=== PATIENT | male | born 1945 | race Caucasian/White ===

== ENCOUNTER 2022-07-14 09:25 | Emergency (ER) | payer MEDICARE, OTHER, SELFPAY ==
[2022-07-14 09:44] VITALS: BP 119/77; PULSE 73; RESP 12; TEMP 36.1; O2SAT 97; BMI 27.8
--- NOTE | 2022-07-14 09:52 | CRLHL7_ITS ---
For Patients: As a result of the Century Cures Act, medical imaging exams and procedure reports are released immediately into your electronic medical record. You may view this report before your referring provider. If you have questions, please contact your health care provider. INDICATION: Cough. TECHNIQUE: Portable AP chest radiograph. COMPARISON: 04/29/2021. FINDINGS: Mildly reduced lung volumes. No focal pulmonary opacity, pneumothorax, or pleural effusion. Normal cardiac size. Similar mild thoracic aortic tortuosity. IMPRESSION: Low volume study without acute cardiopulmonary findings. Dictated by Bran Lal MD @ 07/14/2022 10:07:48 AM Dictated by: Bran Lal MD @ 07/14/2022 10:07:51 (Electronically Signed)
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
[2022-07-14 10:33] LABS: PCR FLU A Negative PCR FLU A (Negative); PCR FLU B Negative PCR FLU B (Negative); PCR RSV Negative PCR RSV (Negative)
[2022-07-14 10:43] LABS: SARS PCR* POSITIVE SARS-CoV-2 (Negative)
[2022-07-14 11:00] VITALS: BP 119/77; PULSE 73; RESP 12; TEMP 36.1
== END 2022-07-14 11:00 | disposition home or self-care (01) ==
PROVIDERS: Emergency Provider Family Medicine; PCP Surgery
DX: U07.1 COVID-19 (principal)
CPT/HCPCS: 71045; 87502; 87634; 87635; 99284

== ENCOUNTER 2022-10-12 12:31 | Emergency (ER) | payer MEDICARE, OTHER, SELFPAY ==
[2022-10-12 12:36] VITALS: BP 143/90; PULSE 69; RESP 16; TEMP 36.2; O2SAT 98; BMI 28.3
--- NOTE | 2022-10-12 12:58 | CRLHL7_ITS ---
For Patients: As a result of the Century Cures Act, medical imaging exams and procedure reports are released immediately into your electronic medical record. You may view this report before your referring provider. If you have questions, please contact your health care provider. Indication: Bloating, abdominal pain, suspected bowel obstruction or diverticulitis Technique: CT abdomen and pelvis with IV contrast Please note that all CT scans at this facility use dose modulation, iterative reconstruction, and/or weight-based dosing when appropriate to reduce radiation dose to as low as reasonably achievable. Comparison: July 29, 2014 Findings: Small hiatal hernia. Inferior thorax otherwise unremarkable. Normal liver size and contour. No suspicious hepatic lesions. Hepatic and portal veins appear patent. Normal gallbladder. No biliary dilatation. The adrenal glands, kidneys, spleen, pancreas, stomach and duodenum are unremarkable. Normal course and caliber of the abdominal aorta and the IVC. The aortic side branches and the renal veins appear patent. Mild atherosclerotic disease of the abdominal aorta. No lymphadenopathy. Bladder unremarkable. Prostate may be absent. There is a penile prosthesis in place with somewhat irregularly appearing reservoir. Diverticulosis without acute diverticulitis. No bowel obstruction. No bowel wall thickening. No significant free fluid. No acute osseous abnormality. Bilateral L5 pars defects. Impression: No evidence of bowel obstruction or diverticulitis. No etiology identified for patient`s bloating. Please note that all CT scans at this facility use dose modulation, iterative reconstruction, and/or weight-based dosing when appropriate to reduce radiation dose to as low as reasonably achievable. Dictated by Zaheer London MD @ 10/12/2022 2:13:43 PM (Electronically Signed)
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
[2022-10-12 13:19] LABS: Lactate* 0.7 mmol/L (0.5-1.9)
[2022-10-12 13:22] LABS: Appearance Urine Clear (Clear); Bilirubin Urine Negative (Negative); Blood Urine Trace-intact (Negative); Color Urine Yellow (Yellow); Glucose Urine Negative (Negative); Ketones Urine Negative (Negative); Leukocyte Esterase Urine Negative (Negative); Nitrite Urine Negative (Negative); Protein Urine Negative (Negative); Specific Gravity Urine 1.025 (1.000-1.030); Urobilinogen Urine 0.2 (0.2-1.0)
--- OUTSIDE RECORDS SUMMARY | 2022-10-12 13:25 | XMS_ITS | Continuity of Care Document ---
Author Name Unknown Organization [facility] Address [address] [address] [place] [address] Phone Care Team Providers Care Field Underwriter Name Role Phone Mayra Ross MD Unavailable Unavailable Allergies, Adverse Reactions, Alerts Substance Reaction Status Criticality No Known Allergies Active No Inform ation Medications Medication Instructions Dosage Effective Dates (start - stop) Status Comments ferrous sulfate 325 mg (65 mg iron) tablet,delayed release take 1 tablet by oral route every day 325 MG - Active sotalol 80 mg tablet take 1 tablet by oral route 2 times every day 80 MG - Active Xyosted 75 mg/0.5 mL subcutaneous auto-injector inject (75MG) by subcutaneous route every week in the abdomen 75 MG - Active CELECOXIB (unknown strength) take 1 capsule by oral route every day Not Available - Active Eliquis 5 mg tablet take 2 tablet by oral route every day 10 MG - Active omeprazole 20 mg tablet,delayed release take 1 by Oral route every day 1 - Active amlodipine 5 mg tablet take 1 tablet by oral route every day 5 MG - Active Lunesta 3 mg tablet take 1 Tablet by oral route every day at bedtime 3 MG - Active EXCEDRIN TENSION HEADACHE (unknown strength) Take as directed Not Available - Active Procedures Procedure Date Small Bowel PillCam Capsule 1st Day Offic/outpt E&m New Mod-hi Advance Directives Directive Yes / No Effective Date File Name No Information Encounters Encounter Description Practice Location Reason(s) For Visit Diagnoses Date Provider Providers Copied on Encounter [facility], [address] [address], [place], [id number], [place] tel:[phone] [facility] No Information 1 Vandana Nunez. [address] [facility], [facility] [address], [place], [place], [id number] , [place]. tel: [phone] [facility], [address] [address], [place], [id number], [place] tel:[phone] [facility] Anemia, unspecified 1 Dena Valera. [address] [facility], [facility] [address], [place], [place], [id number] , [place]. tel: [phone] Referring Provider: Adrien Baig, [address] [place] [address], [address]. tel:[phone] [facility], [address] [address], [place], [id number], [place] tel:[phone] [facility] Anemia, unspecified type 1 Vandana Nunez. [address] [facility], [facility] [address], [place], [place], [id number] , [place]. tel: [phone] Referring Provider: Referral Self. Offic/outpt E&m [facility], [address] [address], [place], [id number], [place] tel:[phone] [facility] Comment (chief complaint) MelenaAnemia, unspecified typeHistory of migraine headachesHistory of atrial fibrillation 1 Vandana Nunez. [address] [place] [address], [facility] [address], [place], [place], [address] , [place]. tel: [phone] Referring Provider: Referral Self. [facility], [address] [address], [place], [place], [address], [place] tel:[phone] [facility] No Information 1 Leslee Silva. [address] [facility], [place], [place], [id number] , [place]. tel:[phone] Family History Family Member Type Diagnosis Age At Onset No Information Immunizations Vaccine Date Status Comments SARS-COV-2 (COVID-19) vaccin e, mRNA, spike protein, LNP, preservative free, 30 mcg/0.3mL dose administered Note: [facility] bi-direct ional interface ; Source: Other Registry SARS-COV-2 (COVID-19) vaccin e, mRNA, spike protein, LNP, preservative free, 30 mcg/0.3mL dose administered Note: [facility] bi-direct ional interface ; Source: Other Registry influenza, seasonal vaccine, quadrivalent, adjuvanted, .5mL dose, preservative free administered Note: [facility] bi-di rectional interface ; Source: Other Registry tetanus toxoid, reduced diphtheria toxoid, and acellular pertussis vaccine, adsorbed administered Note: [facility] b i-directional interface ; Source: Other Registry zoster vaccine recombinant administered N ote: [facility] bi-directional interface ; Source: Other Registry zoster vaccine recombinant administered N ote: [facility] bi-directional interface ; Source: Other Registry Seasonal trivalent influenza vaccine, adjuvanted, preservative free administered Note: [facility] bi-direct ional interface ; Source: Other Registry Seasonal trivalent influenza vaccine, adjuvanted, preservative free administered Note: [facility] bi-direct ional interface ; Source: Other Registry typhoid Vi capsular polysaccharide vaccine administered Note: [facility] bi-dir ectional interface ; Source: Other Registry Havrix administered Note: [facility] bi-d irectional interface ; Source: Other Registry Seasonal trivalent influenza vaccine, adjuvanted, preservative free administered Note: [facility] bi-direct ional interface ; Source: Other Registry influenza, high dose seasona l, preservative-free administered Note: [facility] bi-direct ional interface ; Source: Other Registry Prevnar 13 administered Note: [facility] bi-d irectional interface ; Source: Other Registry influenza, high dose seasona l, preservative-free administered Note: [facility] bi-direct ional interface ; Source: Other Registry tetanus toxoid, reduced diphtheria toxoid, and acellular pertussis vaccine, adsorbed administered Note: [facility] b i-directional interface ; Source: Other Registry Pneumovax 23 administered Note: [facility] bi-d irectional interface ; Source: Other Registry Twinrix administered Note: [facility] bi-d irectional interface ; Source: Other Registry yellow fever vaccine administered Note: [facility] bi-directional interface ; Source: Other Registry Influenza, seasonal, injectable administe red Note: [facility] bi- directional interface ; Source: Other Registry Influenza, seasonal, injectable administe red Note: [facility] bi- directional interface ; Source: Other Registry zoster vaccine, live administered Note: M [facility] bi-directional interface ; Source: Other Registry Influenza, seasonal, injectable administe red Note: [facility] bi- directional interface ; Source: Other Registry Influenza, seasonal, injectable administe red Note: [facility] bi- directional interface ; Source: Other Registry tetanus toxoid, reduced diphtheria toxoid, and acellular pertussis vaccine, adsorbed administered Note: [facility] b i-directional interface ; Source: Other Registry Influenza, seasonal, injectable administe red Note: [facility] bi- directional interface ; Source: Other Registry Influenza, seasonal, injectable administe red Note: [facility] bi- directional interface ; Source: Other Registry Payers Payer name Insurance type Covered democrat ID Authoriza tion(s) [employer] 16 [id number] Social History Type Description Quantity Date Captured Comments Alcohol Use Details Unknown Caffeine Use Details Unknown Tobacco Use Status No Information Smoking Status No Information Sex Male Chief Complaint And Reason For Visit No Information Reason For Referral Reason For Referral No Information Plan Of Treatment Date Type Action Status No Information History Of Present Illness Encounter Date Complaint History Of Sue chambers Illness Comment This was a telev isit with the patient. He consented to have this visit over the phone. The people present were the patient and myself. A total of 28 minutes was spent in medical discussion of which 5 minutes was used reviewing some limited outside records and coordinating his care.Mr. Rubin is a pleasant 75-year-old gentleman with a past medical history significant for arthritis, atrial fibrillation, prostate cancer, hypertension, and migraine headaches, who is here today for evaluation of an episode of melena and a drop in hemoglobin.The patient reports that about 3 to 4 weeks ago, he had 5 days of black stools and his primary care doctor had him stopped the Eliquis. He restarted the Eliquis about 3 weeks ago and has not had any recurrent black stools. He was taking Celebrex for his arthritis and he stopped taking that about 2 weeks ago. However, he does take Excedrin that has aspirin in it daily for his migraine headaches. He reports he had an upper endoscopy with Functional Status Date Functional Assessmen t No Information Instructions Date Instruction Additional Infor mation No Information Assessments Type Assessment Date No Information Patient Care Teams Name Effective Dates (start - stop) Status Members No Information
--- OUTSIDE RECORDS SUMMARY | 2022-10-12 13:25 | XMS_ITS | Continuity of Care Document ---
Author Name Unknown Organization [facility] Address [address] [place] [address] [place] [address] Phone Care Team Providers Care Filling Hauler Name Role Phone Will Bran MONGE Unavailable [...] Diagnoses Date Provider Providers Copied on Encounter [facility], [address] [place], [id number] , [place] tel: [phone] [facility] [place] No Information 2 Dany Sotomayor. [address] [facility] [place], [id number] , [place]. tel: [phone] OFFICE/OUTPATI ENT VISIT, EST [facility], [address] [place] [address] [place], [id number] , [place] tel: [phone] [facility] headache (chief complaint) Headache 7 8 Winston Case. [facility], [place], [place], [id number] , [place]. tel: [phone] Referring Provider: Cm Mirza [facility] [address] [place] [address], [address]. tel:[phone] OFFICE CONSULTATION [facility], [address] [place] [address] [place], [place], [id number] , [place] tel: [phone] [facility] headache (chief complaint) HeadacheOther fci (current) drug therapy [phone] Schneider Tao. [address] [place] [address] [place], [id number] , [place]. tel: [phone] Referring Provider: Cm Mirza [facility] [address] [place] [address], [address]. tel:[phone] [facility], [address] [place] [address] [place], [place], [id number] , [place] tel: [phone] [facility] headache (chief complaint) No Information [phone] Schneider Tao. [address] [place] [address] [place], [place], [address] , [place]. 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 Reports he has been taking the [...] or neurologic symptoms.Tested for sleep apnea at [facility]-- no significant findings. Dr. Mirza suggested Mr. Rubin come here to explore injections and medical cannabis. States he currently takes excedrin for acute pain relief.Mr. Rubin would like [facility] to assume managment of pain [...] or neurologic symptoms.Tested for sleep apnea at [facility]-- no significant findings. Underwent PT at -- not helpful. Tried injections at -- not helpful. Reports previous . Has taken for addtional pain relief. MrRavi is interested in and would like [facility] to assume managment of pain care. Functional Status Date Functional Assessmen t No Information Instructions Date Instruction Additional Infor mation No Information Assessments Type Assessment Date No Information Patient Care Teams Name Effective Dates (start - stop) Status Members No Information
[2022-10-12 13:26] LABS: Basophils Absolute Auto 0.02 K/uL (0.00-0.30); Basophils Percent Auto 0.3 % (0.0-3.0); Eosinophils Absolute Auto 0.21 K/uL (0.00-0.50); Eosinophils Percent Auto 3.1 % (0.0-7.0); Hematocrit 48.3 % (37.0-53.0); Hemoglobin* 15.9 gm/dL (13.5-17.5); Immature Granulocytes Abs Auto 0.02 K/uL (0.00-0.30); Immature Granulocytes Pct Auto 0.3 %; Mean Corpuscular HGB Conc 33 gm/dL (32-36); Mean Corpuscular Hemoglobin 31 pg (26-34); Mean Corpuscular Volume 93 fL (80-100); Monocytes Percent Auto 11.2 % (0.0-11.0); Neutrophils Percent Auto 73.1 % (42.0-72.0); Platelet Count* 215 K/uL (140-440); RDW Coefficient of Variation % 13.1 % (11.5-15.5); Red Blood Count 5.21 m/uL (4.30-5.90); White Blood Count* 6.86 K/uL (4.50-11.00)
[2022-10-12 13:32] LABS: RBC Urine 0-2 (0-2); WBC Urine 0-2 (0-5)
[2022-10-12 13:33] LABS: Slide Review Reflex No
[2022-10-12 13:43] LABS: Albumin* 4.3 g/dL (3.3-5.0); Chloride* 104 mmol/L (96-114); Sodium* 138 mmol/L (135-149)
[2022-10-12 13:44] LABS: Potassium* 4.1 mmol/L (3.6-5.1)
[2022-10-12 13:46] LABS: Bilirubin Total* 0.6 mg/dL (0.1-1.5); Est. Creatinine Clearance* 70.06; Estimated Glomerular Filt Rate 78 ml/min
[2022-10-12 13:47] LABS: Alanine Aminotransferase* 24 U/L (4-50); Alkaline Phosphatase* 89 U/L (40-150); Aspartate Amino Transferase* 28 U/L (12-35); Blood Urea Nitrogen* 18 mg/dL (7-30); Calcium* 9.2 mg/dL (8.4-10.6); Carbon Dioxide* 28 mmol/L (20-32); Glucose* 103 mg/dL (60-115); Lipase* 138 U/L (23-300); Total Protein* 7.7 g/dL (6.0-8.3)
[2022-10-12 13:50] LABS: C Reactive Protein* 0.9 mg/dL (0.5-1.0)
[2022-10-12 14:45] VITALS: BP 129/89; PULSE 66; RESP 16; O2SAT 97
== END 2022-10-12 14:46 | disposition home or self-care (01) ==
PROVIDERS: Emergency Provider Family Medicine; PCP Surgery
DX: R10.9 Unspecified abdominal pain (principal)
CPT/HCPCS: 36415; 74177; 80053; 81003; 81015; 83605; 83690; 85025; 86140; 99283; 99284; 99285; Q9967

== ENCOUNTER 2023-02-07 08:12 | Outpatient (RCR) | payer MEDICARE, OTHER, SELFPAY ==
--- NOTE | 2023-02-07 16:37 | PT.OPEX ---
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 PATIENT STATES, IT 'S REALLY BEEN HURTING RIGHT HERE (MEDIAL KNEE) SINCE I HAD THE SURGERY FOR MY RIGHT ANKLE. 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 [employer] Preferred Name SHANICE Objective Other/Pertinent Objective GAIT/FUNCTIONAL MOBILITY Single leg stance: 16SEC LLE Squat: PAINFUL MEDIAL KNEE KNEE ROM Flexion: 132 Extension: 0 HIP ROM Flexion: WNL Extension: WNL Internal Rotation: WFL External Rotation: WFL Abduction: WNL LLE MMT: Hip flexion: 4+/5 R/L Hip abduction: 4+/5 Hip extension: 4+/5 Knee flexion: 4+/5 Knee extension: 4/5 SPECIAL TEST Anterior drawer: (-) Stephanie test: (-) Posterior Drawer: (-) Valgus Test: (-) Varus Test: (-) Joint line tenderness: MEDIAL JOINT LINE/MEDIAL PATELLA Marina test: (-) hyper flexion test:(+) Thessaly test: (-) Vinson Compression: (+) GRETTA test: (+) FADIR test: (+) Scour test: (-) Assessment Assessment/Impression PATIENT IS A [address] PAVON TO EVAL AND TREAT LEFT KNEE PATELLOFEMORAL OSTEOARTHRITIS; PMHX INCLUDES BUT NOT LIMITED TO RECENT TIBIOTALAR CALCANEAL FUSION ( ANKLE REPLACEMENT) (11/11/22), RIGHT BICEPS REPAIR (15 YRS), ELBOW SX (2003, 2017), AFIB RECENT WATCHMAN DEVICE (09/2022 ), LEFT SHOULDER SCOPE (2002), GERD, DIVERTICULITIS, REMOTE H/O OF CA (2014), ASYMMETRIC PUPILS D/T GOLF BALL TRAUMA ( 2019), MULTIJOINT OA. PATIENT LIVES W/HIS IN A MULTISTORY HOME W/15 STEPS TO ENTER W/RAILING. UPON EVALUATION, HE DEMONSTRATES MEDIAL JOINT PAIN/PATELLA BORDER PAIN CONSISTENT WITH OSTEOARTHRITIS AND PATELLOFEMORAL SYNDROME AND A POSITIVE VINSON'S TEST. HE DEMONSTRATES DECREASED ABILITY TO ENGAGE VMO DURING LEG RAISES AND KNEE EXT THAT HE HAS BEEN DOING WITH HIS RIGHT ANKLE REHABILITATION. A GREAT DEAL OF TIME AND PRACTICE TO KEEP VMO ENGAGED DURING A SINGLE STRAIGHT LEG WITH NOTABLE EFFORT AND CONCENTRATION. UPON FURTHER DISCUSSION, HE HAS BEEN PERFORMING HIS EXERCISES ONCE DAILY BUT DOUBLING THEM WITH POOR EFFICIENCY AND EFFICACY. WE DISCUSSED THE PATELLOFEMORAL SYNDROME IN DEPTH AND THE IMPORTANCE OF THE VMO FOR TRACKING AND LATERAL HIP. TODAY, HE COMPLETED 8 REPS FOR SLR AND UNABLE TO PERFORM MORE D/T FATIGUE. I HAD HIM ADD AN ADDUCTION SQUEEZE TO BRIDGE, KNEE EXT, AND MINISQUATS NOTING MODERATE PAIN WITH SIT TO STANDS. WE WILL INCORPORATE HIS LEFT KNEE DX FOR STRENGTH , GT, AND CORE STABILITY ALONG WITH FLEXIBILITY. HE IS APPROPRIATE FOR SKILLED PHYSICAL THERAPY TO RETURN HIM TO HIS PLOF BEFORE RIGHT ANKLE SURGERY. PATIENT VERBALIZED UNDERSTANDING BUT WILL NEED ONGOING INSTRUCTION FOR EFFICACY. Primary Functional Limitations STAIRS SQUATTING STOOPING PROLONGED SITTING Plan of Care Rehabilitation Potential Good Physical Therapy Goals IN 4-6 VISITS: 1. PATIENT WILL REPORT PAIN IN LEFT KNEE </3/10 AND AT WORST 2. PATIENT WILL DEMONSTRATE INDEPENDENT HEP AND THE ABILITY TO PROGRESS 3. PATIENT WILL IMPROVE STRENGTH TO PARTICIPATE IN COMMUNITY AND WORK RELATED ACTIVITIES Coordination/Communication With Referral Source Treatment Plan/Direct Interventions Gait Training,Heat,Ice/Cold/ Vasopneumatic,Joint Mobilization,Manual Therapy, Neuromuscular Re-ed,Self-Care/ Home Management,Therapeutic Activities,Therapeutic Exercises Frequency/Duration 1W6 Patient Will Be Discharged From Therapy Completion of LTG(s), Independently Progressing Discharge Plan Comments DC TO SELF WHEN GOALS MET OR MAX POTENTIAL ACHIEVED Evaluation Billing Untimed Code Treatment Minutes 15 PT Eval No Charge No Complexity Moderate Certification Information Physician Comment/Change : Physician NPI Number #
== END 2023-04-14 09:07 | disposition home or self-care (01) ==
PROVIDERS: PCP Surgery; Visit Provider Orthopaedic Surgery Sports Medicine
DX: M17.12 Unilateral primary osteoarthritis, left knee (principal); Z51.89 Encounter for other specified aftercare
CPT/HCPCS: 97110; 97162

== ENCOUNTER 2023-07-17 09:45 | Outpatient (RCR) | payer MEDICARE, OTHER, SELFPAY | END 2023-07-24 11:35 | disposition home or self-care (01) | PROVIDERS: PCP Surgery; Referring Provider Physician Assistant; Visit Provider Orthopaedic Surgery Foot and Ankle Surgery | DX: S76.112A Strain of left quadriceps muscle, fascia and tendon, initial encounter (principal); M17.12 Unilateral primary osteoarthritis, left knee; Z47.2 Encounter for removal of internal fixation device; R26.2 Difficulty in walking, not elsewhere classified; Z51.89 Encounter for other specified aftercare | CPT/HCPCS: 97012; 97035; 97110; 97116; 97140; 97162 ==

== ENCOUNTER 2023-07-21 10:02 | Day surgery (SDC) | payer MEDICARE, OTHER, SELFPAY ==
[2023-07-21] VITALS (22 sets, daily range): BP systolic 92–159; BP diastolic 63–104; PULSE 55–85; RESP 12–18; TEMP 35.4–36.8; O2SAT 93–99; BMI 28.4
[2023-07-21] MEDS: LACTATED RINGERS 1000 ML 1,000 ML 100 ML IV (10:20)
[2023-07-21] MEDS: OXYCODONE (CR) 10 MG TAB.ER.12H PO (10:20)
[2023-07-21] MEDS: SODIUM CHLORIDE 0.9 % (FLUSH) 10 ML SYRINGE IVF (10:30)
--- OUTSIDE RECORDS SUMMARY | 2023-07-21 10:33 | XMS_ITS | Encounter Summary ---
Author Name Unknown Organization [facility] Address [address] [address] Phone Care Team Providers Care Fish Liver Sorter Name Role Phone Unavailable Primary Care Provider Unavailabl e Reason for Referral * Diagnostic (Urgent) - Authorized Specialty Diagnoses / Procedures Referred By Clarisa joshua Referred To Contact Radiology Diagnoses Left knee injury, initial encounter Procedures MR KNEE LEFT WO CONTRAST Kermit Peralta APRN, CNP [address] [place] [address] Referral ID Status Reason Start Date Expiration Date V isits Requested Visits Authorized [id number] Authorized 04/02/2023 07/02/2024 1 1 * Ancillary Services (Routine) - Closed Specialty Diagnoses / Procedures Referred By Clarisa joshua Referred To Contact Radiology Diagnoses Left knee injury, initial encounter Procedures XR KNEE LT 4 OR MORE VIEWS Kermit Peralta APRN, CNP [address] [place] [address] Referral ID Status Reason Start Date Expiration Date Visits Re quested Visits Authorized [id number] Closed 04/02/2023 07/02/2024 1 1 Reason for Visit * Reason Comments Consult Left thigh Encounter Details Date Type Department Care Team (Late st Contact Info) Description 04/02/2023 2:00 PM CDT Office Visit [facility] [address] [place] [phone] Kermit Peralta APRN, SCENERY BUILDER [address] [place] [phone] Left knee injury, initial encounter (Primary Dx); Primary localized osteoarthritis of left knee Social History Tobacco Use Types Packs/Day Years Used Date Smoking Tobacco: Never Assessed Sex and Gender Information Value Date Recorded Sex Assigned at Not on file Gender Identity Not on file Sexual Orientation Not on file Job Start Date Occupation Industry Not on file Not on file Not on file documented as of this encounter Last Filed Vital Signs Vital Sign Reading Time Taken Comments Blood Pressure - - Pulse - - Temperature - - Respiratory Rate - - Oxygen Saturation - - Inhaled Oxygen Concentration - - Weight 91.2 kg (201 lb 1 oz) 04/02/2023 2:27 PM CDT Height 182.9 cm (6') 04/02/2023 2:27 PM CDT Body Mass Index 27.27 04/02/2023 2:27 PM CDT documented in this encounter Progress Notes * Jacqueline Coats - 04/02/2023 2:00 PM CDT [facility] Kermit Peralta APRN, SCENERY BUILDER Patient: Chente Rubin : 1945 Appointment Date: 04/02/2023 CHIEF COMPLAINT Chief Complaint Patient presents with ??? Consult Left thigh Summary of Lower Extremity Problems and Interventions Job: Unknown Medical issues that may impact care Diabetes: Negative Insulin: Negative Anticoagulation: Negative Pacemaker or defibrillator: NegativeTobacco: Unknown Diagnosis: 04/02/2023: Primary osteoarthritis left knee Injections: None Surgery Performed: None Tests: 04/02/2023: I personally reviewed imaging of the left knee done today in- clinic which revealed severe degenerative changes to the patellofemoral joint with subchondral sclerosis and periarticular osteophytes. HISTORY OF PRESENT ILLNESS Chente is a very pleasant 77 year old male who presents to our walk-in clinic today with concerns of left knee pain. He did sustain an injury to the knee on 04/02/2023 when he fell in his garage while hew as sitting down on a box. He had shooting pian in his thigh when this happened. He did not fall on his knee and is unsure of the mechanism of exactly how this occurred. He says that he has had previous problems with his knees. He is mostly having pain at this time over the anterior thigh and is having pain with weight-bearing. He denies any catching or locking and has not had numbness or tingling. He does state that he has ankle prostheses bilaterally. He is here today with his for evaluation of his knee/thigh injury and to discuss treatment planning. MEDICAL HISTORY Allergies Allergen Reactions ??? Atorvastatin Muscle pain and Unknown Muscle pains with atorvastatin ??? Lisinopril Cough ??? Rosuvastatin Nausea Only Statin intolerance. No past medical history on file. Current Outpatient Medications Medication Sig ??? aspirin EC 81 MG tablet Take 81 mg by mouth one time a day. ??? celecoxib (CeleBREX) 100 MG capsule ??? omeprazole (PriLOSEC) 20 MG delayed-release capsule TAKE 1 CAPSULE BY MOUTH EVERY DAY BEFORE A MEAL ??? sotalol (Betapace) 80 MG tablet Take 40 mg by mouth every 12 hours. ??? amLODIPine (Norvasc) 5 MG tablet ??? sotalol (Betapace) 80 MG tablet ??? evolocumab (Repatha) 140 MG/ML prefilled syringe injection Inject 140 mg under the skin. ??? eszopiclone (Lunesta) 1 MG tablet Take 1 mg by mouth at bedtime. ??? polyethyl glycol-propyl glycol (Systane) 0.4-0.3 % ophthalmic gel Apply 1 Drop to eye two timesa day. ??? augmented betamethasone dipropionate (Diprolene) 0.05 % ointment ??? augmented betamethasone dipropionate (Diprolene) 0.05 % ointment ??? clindamycin (Clindagel) 1 % gel APPLY TOPICALLY TO THE AFFECTED AREA TWICE DAILY FOR 7 DAYS No current facility-administered medications for this visit. No past surgical history on file. No family history on file. REVIEW OF SYSTEMS Constitutional: no weight loss, fever, night sweats Skin: no rashes, pigmentation changes, or lesions of concern Resp: no cough or shortness of breath CV: no chest pains or palpitations Musculoskeletal: POSITIVE - please see above HPI for details PHYSICAL EXAMINATION Vitals: 04/02/23 1427 Weight: 201 lb 1 oz (91.2 kg) Height: 6' (1.829 m) Body mass index is 27.27 kg/m??. PAIN SCORE: Seven CONSTITUTIONAL: Well developed and well nourished male in no acute distress. Alert and orientated x4, nonfocal. LOWER EXTREMITY: Left lower extremity HIP: LIMB LENGTHS: Equal RANGE OF MOTION: Full with no pain TENDERNESS: Negative in the groin, buttock, or over the hip bursa STRAIGHT LEG RAISE: Negative KNEE: EFFUSION: None INSPECTION/PALPATION: There is a fullness noted over the distal thigh compared to the right side. There is a mass in the proximal anterior thigh that is approximately baseball sized. There does appear to be some divot at the quad insertion on the left compared to the right. No significant palpable defect. SKIN: No redness. No rashes. No ecchymosis. TENDERNESS: Medial: Mildly positive Lateral: Negative Patellofemoral: Negative Distal rectus femoris tender, VMO tender, mild vasis lateralis. No significant tenderness at the proximal pole of the patella. RANGE OF MOTION: Extension: 0 degrees Flexion: 100 degrees STABILITY: No varus or valgus instability. No AP instability. PROVOCATIVE TESTING: Stephanie's: Negative Resisted Straight Leg Raise: 5/5 Quadriceps:4/5 on the left 5/5 on the right Hamstrings: 5/5 bilaterally. Steinmann's: Negative MOTORS AND SENSATION: Intact distally. PULSES: 2+ dorsalis pedis and posterior tibial pulses. ALIGNMENT: Valgus IMAGING I personally reviewed imaging of the left knee done today in-clinic which revealed moderate to severe degenerative changes to the patellofemoral joint with subchondral sclerosis and periarticular osteophytes. There are mild arthritic changes seen of the medial and lateral compartments. Chondrocalcinosis seen laterally. There is no significant patella baja. No acute fractures or other osseous abnormalities seen. IMPRESSIONS 1. Left knee injury, initial encounter 2. Primary osteoarthritis left knee PLAN I discussed with the patient that his x-rays today did show degenerative changes to the patellofemoral joint but no acute carol abnormalities. He does have weakness with quadriceps testing on physical exam so while I do not think he has a complete quad rupture, I do think he may have a partial quadriceps tear. I am going to order a STAT MRI to be done of the left knee. The patient did state that he needs to get an open-sided MRI scan because he is claustrophobic. I am ordering this today, and once the results are avialble to me I will give him a call to discuss the results and we will make our plan from there. The patient was agreeable with this plan and all of their questions were answered. I, Jacqueline Coats, am serving as a scribe to document services professionally performed by Kermit Peralta APRN, CNP for this visit based on the provider's statements to me on the date of this clinic visit. documented in this encounter Miscellaneous Notes * Clinical Note - Ramiro Rai CMA - 04/02/2023 2:00 PM CDT Patient was fit with and dispensed: knee immobilizer. Patient was provided clear written and oral instruction related to use, maintenance, safety and potential hazards; verbalizes understanding and satisfaction with fit, comfort and function and is Independent with fitting and adjustment. Patient was given contact information if problems occur with product. Patient signed for receipt of product. Patient demonstrates good understanding of application and use of product. Patient voiced good understanding of all instructions given today and will follow up with their Physician/APC if they have questions or concerns. documented in this encounter Plan of Treatment Upcoming Encounters Date Type Department Care Team (Latest Contact Info) Description 09/29/2023 2:15 PM CDT Hospital Encounter [facility] PREOP/PHASE II [address] [place] [phone] Sami Savage MD [address] [place] [phone] 09/29/2023 2:15 PM CDT - 09/29/2023 4:45 PM CDT Surgery [facility] [address] [place] [address] Sami Savage MD [address] [place] [phone] Left total knee arthroplasty Scheduled Orders Name Type Priority Associated Diagnoses Orde r Schedule MR KNEE LEFT WO CONTRAST Imaging STAT Left knee injury, initial encounter Expected: 04/02/2023 (Approximate), Expires: 04/02/2024 Scheduled Procedures Name Priority Associated Diagnoses Date/Ti me ARTHROPLASTY TOTAL KNEE Left knee degenerative joint disease M17.12 09/29/2023 2:15 PM CDT documented as of this encounter Results * XR KNEE LT 4 OR MORE VIEWS (04/02/2023 3:04 PM CDT) Anatomical Region Laterality Modality Knee Radiographic Donna ging 04/02/2023 3:04 PM CDT Narrative 04/03/2023 7:29 AM CDT This document is currently in Final Status Exam FOUR-VIEW LEFT KNEE SERIES 04/02/2023 1505 INDICATION: Injury. FINDINGS: No bony injuries or effusions are evident. There is mild degenerative change in the knee. IMPRESSION: Mild chronic change. No acute abnormality seen. Dictated By: Gokul Sebastian MD 04/02/2023 3:30 PM Edited By: KIMBERLY 04/02/2023 4:23 PM Electronically Signed: Gokul Sebastian MD 04/03/2023 7:29 AM Procedure Note Gokul Sebastian MD - 04/03/2023 This document is currently in Final Status Exam FOUR-VIEW LEFT KNEE SERIES 04/02/2023 1505 INDICATION: Injury. FINDINGS: No bony injuries or effusions are evident. There is milddegenerative change in the knee. IMPRESSION: Mild chronic change. No acute abnormality seen. Dictated By: Gokul Sebastian MD 04/02/2023 3:30 PM Edited By: KIMBERLY 04/02/2023 4:23 PM Electronically Signed: Gokul Sebastian MD 04/03/2023 7:29 AM Kermit Peralta SAT INSTRUCTOR, SCENERY BUILDER EC DIAGNOSTI C IMAGING ORDERABLES documented in this encounter Visit Diagnoses Diagnosis Left knee injury, initial encounter- Primary Primary localized osteoarthritis of left knee Left knee injury, initial encounter documented in this encounter Historical Medications * This list may reflect changes made after this encounter. Medication Sig Dispensed Refills Start Date End Date sotalol (Betapace) 80 MG tablet Take 40 mg by mouth every 12 hours. 0 03/07/2022 omeprazole (PriLOSEC) 20 MG delayed-release capsule TAKE 1 CAPSULE BY MOUTH EVERY DAY BEFORE A MEAL 0 02/03/2020 clindamycin (Clindagel) 1 % gel APPLY TOPICALLY TO THE AFFECTED AREA TWICE DAILY FOR 7 DAYS 0 celecoxib (CeleBREX) 100 MG capsule 0 08/14/2022 augmented betamethasone dipropionate (Diprolene) 0.05 % ointment 0 12/29/2022 augmented betamethasone dipropionate (Diprolene) 0.05 % ointment 0 aspirin EC 81 MG tablet Take 81 mg by mouth one time a day. 0 09/12/2022 polyethyl glycol-propyl glycol (Systane) 0.4-0.3 % ophthalmic gel Apply 1 Drop to eye two times a day. 0 eszopiclone (Lunesta) 1 MG tablet Take 1 mg by mouth at bedtime. 0 02/27/2023 evolocumab (Repatha) 140 MG/ML prefilled syringe injection Inject 140 mg under the skin. 0 sotalol (Betapace) 80 MG tablet 0 02/10/2023 amLODIPine (Norvasc) 5 MG tablet 0 02/25/2023 added in this encounter Orders Materials Management Count Last Ordered Date Fi rst Ordered Date DME GENERAL 1 04/02/2023 documented in this encounter
--- OUTSIDE RECORDS SUMMARY | 2023-07-21 10:33 | XMS_ITS | Encounter Summary ---
Author Name Unknown Organization [facility] [employer] [facility] Address [address] [address] Phone Care Team Providers Care Triage Registered Nurse Name Role Phone Unavailable Primary Care Provider Unavailabl e Encounter Details Date Type Department Care Team (Latest Contact Info) Description 04/02/2023 Travel Social History Tobacco Use Types Packs/Day Years Used Date Smoking Tobacco: Never Assessed Sex and Gender Information Value Date Recorded Sex Assigned at Not on file Gender Identity Not on file Sexual Orientation Not on file Job Start Date Occupation Industry Not on file Not on file Not on file documented as of this encounter Plan of Treatment Upcoming Encounters Date Type Department Care Team (Latest Contact Info) Description 09/29/2023 2:15 PM CDT Hospital Encounter [facility] PREOP/PHASE II [address] [place] [phone] Sami Savage MD [address] [place] [phone] 09/29/2023 2:15 PM CDT - 09/29/2023 4:45 PM CDT Surgery [facility] OR [address] [place] [phone] Sami Savage MD [address] [place] [phone] Left total knee arthroplasty Scheduled Procedures Name Priority Associated Diagnoses Date/Ti me ARTHROPLASTY TOTAL KNEE Left knee degenerative joint disease M17.12 09/29/2023 2:15 PM CDT documented as of this encounter Visit Diagnoses Not on filedocumented in this encounter
--- OUTSIDE RECORDS SUMMARY | 2023-07-21 10:33 | XMS_ITS | Clinical Summary ---
Author Name Unknown Organization [facility] Address [address] [address] Phone Care Team Providers Care Private Pilot Name Role Phone Unavailable Primary Care Provider Unavailabl e Allergies Active Allergy Reactions Criticality Noted Date Comments Atorvastatin Muscle pain,Unknown Low 09/18/2015 Muscle pains with atorvastatin Lisinopril Cough Low 11/09/2015 Rosuvastatin Nausea Only Low 11/09/2015 Statin intolerance. Medications Medication Sig Dispensed Refills Start Date End Date Status amLODIPine (Norvasc) 5 MG tablet 0 02/25/2023 Active sotalol (Betapace) 80 MG tablet 0 02/10/2023 Active evolocumab (Repatha) 140 MG/ML prefilled syringe injection Inject 140 mg under the skin. 0 Active eszopiclone (Lunesta) 1 MG tablet Take 1 mg by mouth at bedtime. 0 02/27/2023 Active polyethyl glycol-propyl glycol (Systane) 0.4-0.3 % ophthalmic gel Apply 1 Drop to eye two times a day. 0 Active aspirin EC 81 MG tablet Take 81 mg by mouth one time a day. 0 09/12/2022 Active augmented betamethasone dipropionate (Diprolene) 0.05 % ointment 0 Active augmented betamethasone dipropionate (Diprolene) 0.05 % ointment 0 12/29/2022 Active celecoxib (CeleBREX) 100 MG capsule 0 08/14/2022 Active clindamycin (Clindagel) 1 % gel APPLY TOPICALLY TO THE AFFECTED AREA TWICE DAILY FOR 7 DAYS 0 Active omeprazole (PriLOSEC) 20 MG delayed-release capsule TAKE 1 CAPSULE BY MOUTH EVERY DAY BEFORE A MEAL 0 02/03/2020 Active sotalol (Betapace) 80 MG tablet Take 40 mg by mouth every 12 hours. 0 03/07/2022 Active Active Problems Problem Noted Date Diagnosed Date Congenital spondylolysis, lumbosacral region 04/02/2023 Insomnia 04/02/2023 04/02/2023 Osteoarthritis of right shoulder 10/21/2022 04/02/2023 Aortic dilatation 08/16/2022 04/02/2023 Osteopenia 04/11/2019 04/02/2023 Overview: On DEXA 04/2019 Nonrheumatic aortic valve stenosis 08/07/2018 04/02/2023 Sarcoidosis, lung 07/29/2017 04/02/2023 Overview: Recently diagnosed at [facility] Paroxysmal atrial fibrillation 04/10/2017 0 04/02/2023 Thoracic aortic aneurysm without rupture 017 04/02/2023 Overview: 4.7 cm on echo 01/2020; CT recommended 01/2021 Prostate cancer 08/23/2014 04/02/2023 LVH (left ventricular hypertrophy) 05/16/2014 04/02/2023 Adenomatous colon polyp 09/24/2013 04/02/20 Overview: Colonoscopy 09/2013 polyp repeat in 5 years Colonoscopy 07/2018 multiple polyps, repeat in 3 years Colonoscopy 12/2020 polyp, repeat in 5 years HTN (hypertension) 12/28/2012 04/02/2023 Mixed hyperlipidemia 11/18/2006 04/02/2023 Social History Tobacco Use Types Packs/Day Years Used Date Smoking Tobacco: Never Assessed Sex and Gender Information Value Date Recorded Sex Assigned at Not on file Gender Identity Not on file Sexual Orientation Not on file Job Start Date Occupation Industry Not on file Not on file Not on file Obstetrics History Last Filed Vital Signs Vital Sign Reading Time Taken Comments Blood Pressure - - Pulse - - Temperature - - Respiratory Rate - - Oxygen Saturation - - Inhaled Oxygen Concentration - - Weight 91.2 kg (201 lb 1 oz) 04/02/2023 2:27 PM CDT Height 182.9 cm (6') 04/02/2023 2:27 PM CDT Body Mass Index 27.27 04/02/2023 2:27 PM CDT Plan of Treatment Upcoming Encounters Date Type Department Care Team (Latest Contact Info) Description 09/29/2023 2:15 PM CDT Hospital Encounter [facility] PREOP/PHASE II [address] [place] [phone] Sami Savage MD [address] [place] [phone] 09/29/2023 2:15 PM CDT - 09/29/2023 4:45 PM CDT Surgery [facility] OR [address] [place] [phone] Sami Savage MD [address] [place] [phone] Left total knee arthroplasty Scheduled Procedures Name Priority Associated Diagnoses Date/Ti me ARTHROPLASTY TOTAL KNEE Left knee degenerative joint disease M17.12 09/29/2023 2:15 PM CDT Health Maintenance Due Date Last Done Comments MEDICARE AWV 1945 COVID-19 Vaccine (#1) 1945 Pneumococcal Vaccine: 65+ yr s (Standing Order) (1 of 2 - PCV) 1953 PERTUSSIS (Standing Order) 1966 Shingrix (Zoster recombinant ) vaccine (Standing Order) (1 of 2) 1966 TETANUS (Standing Order) 1966 RSV Vaccination (60+ yrs) (Abrysvo/Arexvy) (1 - 1-dose 60+ series) 2007 Influenza Vaccine Seasonal (Standing Order) (#1) 2023 [facility] 12 Breast, Prostate and other Cancers or Tumors 07/07/2023 [facility] 142 Specified Heart Arrhythmias 07/07/2023 HPV Vaccine (Standing Order) Aged Out No longer eligible based on patient's age to complete this topic Hepatitis B Vaccine (Standin g Order) Aged Out No longer eligible b ased on patient's age to complete this topic Medical Devices Implanted Type Area Granulator Operator Device Identifier Shelf Expiration Date Model / Serial / Lot Watchman Flx Closure Device N/A: Heart [id number] / NA / NA Description:1.5/3T Max Spatial Gradient: 2500 gauss/cm No coil restrictions Normal Operating Mode Max whole body CARLOS: 2W/kg; whole body 3.2W/kg Scan Duration: 2W/kg whole body average CARLOS for 60min of continuous RF (a sequence or fmat-id-cmes series/scans without breaks) [facility] MRI Department 04/13/23
--- OUTSIDE RECORDS SUMMARY | 2023-07-21 10:33 | XMS_ITS | Continuity of Care Document ---
Author Name Unknown Organization [facility] Address [address] [address] [place] [address] Phone Care Team Providers Care Box Annealer Name Role Phone Mayra Ross MD Unavailable [...] Diagnoses Date Provider Providers Copied on Encounter [facility], [address] [address], [place], [id number], [place] tel:[phone] [facility] No Information 1 Vandana Nunez. [address] [place] [address], [place] [address], [place], [id number] , [place]. tel: [phone] [facility], [address] [address], [place], [id number], [place] tel:[phone] [facility] Anemia, unspecified 1 Dena Valera. [address] [place] [address], [place] [address], [place], [id number] , [place]. tel: [phone] Referring Provider: Adrien Baig, [address] [place] [address], [address]. tel:[phone] [facility], [address] [address], [place], [id number], [place] tel:[phone] [facility] Anemia, unspecified type 1 Vandana Nunez. [address] [place] [address], [place] [address], [place], [id number] , [place]. tel: [phone] Referring Provider: Referral Self, USE FOR SELF REFERRALS. Offic/outpt E&m [facility], [address] [address], [place], [id number], [place] tel:[phone] [facility] Comment (chief complaint) MelenaAnemia, unspecified typeHistory of migraine headachesHistory of atrial fibrillation 1 Vandana Nunez. [address] [place] [address], [place] [address], [place], [id number] , [place]. tel: [phone] Referring Provider: Referral Self, USE FOR SELF REFERRALS. [facility], [address] [address], [place], [id number], [place] tel:[phone] [facility] No Information Leslee Silva. [address] [facility], [facility] [address], [place], [place], [id number] , . tel:[phone] Family History Family Member Type Diagnosis Age [...] Other Registry yellow fever vaccine administered Note: M IIC bi-directional interface ; [...] Covered democrat ID Authoriza tion(s) [employer] 16 [id number] Social History Type Description Quantity Date Captured Comments Alcohol Use Details Unknown Caffeine Use Details Unknown Tobacco Use Status No Information Smoking Status No Information Sex Male Chief Complaint And Reason For Visit No Information Reason For Referral Reason For Referral No Information History Of Present Illness Encounter [...]
--- OUTSIDE RECORDS SUMMARY | 2023-07-21 10:33 | XMS_ITS | Continuity of Care Document ---
Author Name Unknown Organization [facility] Address [address] [place] [address] [place] [address] Phone Care Team Providers Care Glove Presser Name Role Phone Will Bran MONGE Unavailable [...] Date Provider Providers Copied on Encounter [facility], [address] [facility] [place], [id number] , [place] tel: [phone] [facility] [place] No Information 2 Dany Sotomayor. [address] [facility] [place], [place], [id number] , [place]. tel: [phone] OFFICE/OUTPATI ENT VISIT, EST [facility], [address] [place] [address] [place], [place], [id number] , [place] tel: [phone] [facility] headache (chief complaint) Headache [address] [place] [address]. [facility], [place], [place], [id number] , [place]. tel: [phone] Referring Provider: Cm Mirza [facility] [address] [place] [address], [address]. tel:[phone] OFFICE CONSULTATION [facility], [address] [place] [address], [id number] , [place] tel: [phone] [facility] headache (chief complaint) HeadacheOther oil heaterman (current) drug therapy [address], [address], [place], [address], [place]. tel: [phone] Referring Provider: Cm Mirza [facility] [id number] [place] [address], [address]. tel:[phone] [facility], [address] [place] [address] [place], [place], [id number] , [place] tel: [phone] [facility] headache (chief complaint) No Information [address], [address], [place], [address], [place]. tel:[phone] Family History Family Member Type Diagnosis Age At Onset No Information Payers Payer name Insurance type Covered libertarian ID Authoriza tion(s) [employer] To 16 [id number] Social History Type Description Quantity Date Captured Comments Sex Male Smoking Status No Information Chief Complaint And Reason For Visit No Information Reason For Referral Reason For Referral No Information Plan Of Treatment Date Type Action Status Future Order: Lab Order [facility] ANALYSIS, URINE, WITH MED REPORT ([id number]), Ordered on: Ordered History Of Present Illness Encounter Date Complaint History Of Prese nt Illness headache (comments) Mr. Rubin i s here for a 3-month follow up s/p medical cannabis certification. Reports current medication regimen provides 75% pain relief. Denies side effects from current medication regimen. Pain is stable. He has completed the certification process for medical cannabis and has worked with the [employer]. Reports he has been taking the tangerines [...] or neurologic symptoms.Tested for sleep apnea at [facility]-- no significant findings. Dr. Mirza suggested Mr. Rubin come here to explore injections and medical cannabis. States he currently takes excedrin for acute pain relief.Mr. Rubin would like [facility] to assume managment of pain care. headache (comments) Mr. Rubin i s here [...] or neurologic symptoms.Tested for sleep apnea at [facility]-- no significant findings. Underwent PT at -- not helpful. Tried injections at -- not helpful. Reports previous . Has taken for addtional pain relief. is interested in and would like [facility] to assume managment of pain care. headache Duration: chroni c. Functional Status Date Functional Assessmen t No Information Instructions Date Instruction Additional Infor mation No Information Assessments Type Assessment Date No Information Patient Care Teams Name Effective Dates (start - stop) Status Members No Information
--- OUTSIDE RECORDS SUMMARY | 2023-07-21 10:33 | XMS_ITS | Encounter Summary ---
Author Name Unknown Organization [facility] Address [address] [address] Phone Care Team Providers Care Semi Driver Name Role Phone Unavailable Primary Care Provider Unavailabl e Reason for Visit * Ancillary Services (Routine) - Closed Specialty Diagnoses / Procedures Referred By Clarisa joshua Referred To Contact Radiology Diagnoses Left knee injury, initial encounter Procedures XR KNEE LT 4 OR MORE VIEWS Kermit Peralta, [employer]YROLL BOOKKEEPER, MAJOR ACCOUNT MANAGER [address] [place] [address] Referral ID Status Reason Start Date Expiration Date Visits Re quested Visits Authorized [id number] Closed 04/02/2023 07/02/2024 1 1 Encounter Details Date Type Department Care Team (Latest Contact Info) Description 04/02/2023 2:55 PM CDT Ancillary Procedure [facility] [address] [place] [address] Kermit Peralta, PAYROLL BOOKKEEPER, MAJOR ACCOUNT MANAGER [address] [place] [address] Left knee injury, initial encounter Social History Tobacco Use Types Packs/Day Years [...] Description 09/29/2023 2:15 PM CDT Hospital Encounter [facility] PREOP/PHASE II [address] [place] [phone] Sami Savage MD [address] [place] [phone] 09/29/2023 2:15 PM CDT - 09/29/2023 4:45 PM CDT Surgery [facility] [address] [place] [phone] Sami Savage MD [address], [place] [phone] Left total knee arthroplasty Scheduled Procedures Name Priority Associated Diagnoses Date/Ti me ARTHROPLASTY TOTAL KNEE 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
--- OUTSIDE RECORDS SUMMARY | 2023-07-21 10:33 | XMS_ITS | Clinical Summary ---
Author Name Unknown Organization [facility] Address [address] [place] [address] Care Team Providers Care Motion Picture Commentator Name Role Phone Adrien Hernandez MD Primary Care Provider [phone] Source Comments You are receiving this document as you are listed as the primary care provider,follow-up provider, or the patient has been referred to you for consultation.This is in compliance with the Medicare and[facility] EHR Incentive Program,which states Providers who transition their patient to another setting of careor provider of care or refers their patient to another provider of care shouldprovide summary care record for each transition of care or referral. [facility] Allergies No known active allergies Medications Medication Sig Dispensed Refills Start Date End Date Status apixaban (ELIQUIS) 5 MG tablet Take 5 mg by mouth two times a day. 0 Active gabapentin (NEURONTIN) 100 MG capsule Take 100 mg by mouth three times a day. 0 Active eszopiclone (LUNESTA) 1 MG tablet Take 1 mg by mouth daily at bedtime. 0 Active losartan (COZAAR) 50 MG tablet Take 50 mg by mouth daily. 0 Active celecoxib (CELEBREX) 100 MG capsule Take 100 mg by mouth two times a day. 0 Active terbinafine (LAMISIL) 250 MG tablet Take 1 Tablet by mouth daily. 30 Tablet 1 05/20/2018 Active ketoconazole (NIZORAL) 2 % cream Apply topically daily. 120 g 11 05/20/2018 Active triamcinolone acetonide (KENALOG) 0.1 % cream Apply to affected areas tid-qid prn 80 g 2 06/05/2018 Active amLODIPine (NORVASC) 5 MG tablet Take 5 mg by mouth. 0 01/24/2020 Active Testosterone Enanthate 75 MG/0.5ML SOAJ Inject subcutaneously. 0 05/05/2020 Active Tadalafil (CIALIS) 5 MG tablet Take 5 mg by mouth. 0 02/16/2020 Active omeprazole (PRILOSEC) 20 MG capsule Take 20 mg by mouth. 0 02/03/2020 Active oxybutynin (DITROPAN XL) 5 MG 24 hour release tablet Take 1 Tablet by mouth daily for 30 days. 30 Tablet 0 05/22/2020 Active Active Problems No known active problems Social History Tobacco Use Types Packs/Day Years Used Date Smoking Tobacco: Never Assessed Sex and Gender Information Value Date Recorded Sex Assigned at Not on file Gender Identity Not on file Sexual Orientation Not on file Plan of Treatment Health Maintenance Due Date Last Done Comments Hep C Screening (Preventive Services) 1945 Medicare Annual Wellness Visit 1945 COVID-19 Vaccine (#1) 1945 Influenza (#1) 2023 04/06/2020, 03/08, 04/13/2018, Additional history exists DTaP/Tdap/Td (5 - Tdap) 01/15/2030 01/16/20, 02/19/2013, 10/31/2006, Additional history exists Pneumococcal 65+ Yrs Completed 06/26/2015, 06/11/20 12 HepA Aged Out 07/29/2017, 03/2012, 08/30/2011, Additional history exists No longer eligible based on patient's age to complete this topic Zoster/Shingles Completed 08/03/2019, 05/07, 08/02/2008 HepB Aged Out No longer eligi ble based on patient's age to complete this topic Hib Aged Out No longer eligi ble based on patient's age to complete this topic IPV (Polio) Aged Out No longer eligi ble based on patient's age to complete this topic MCV4 Aged Out No longer eligi ble based on patient's age to complete this topic Care Teams Motion Picture Commentator Relationship Specialty Start Date End Date Adrien Hernandez MD [address] [place] [address] PCP - General Family Practice 03/04/18
--- OUTSIDE RECORDS SUMMARY | 2023-07-21 10:34 | XMS_ITS | Encounter Summary ---
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] Procedures NM REMOVAL IMPLANT, SUPERFICIAL NM REMOVAL DEEP IMPLANT NM ARTHRODESIS,ANKLE,OPEN NM FUSION FOOT BONES,SUBTALAR Right Removal Total Ankel Prosthesis and Tibiotalocalcaneal Fusion Periop Services [address] [facility] [address] [place] [address] Referral ID Status Reason Start Date Expiration Date Visits Re quested Visits Authorized [id number] 1 1 Encounter Details Date Type Department Care Team (Latest Contact Info) Description 11/11/2022 5:35 AM CDT - 11/12/2022 11:08 AM CDT Hospital Encounter [facility] Orthopedics Spine [address] [place] [address] Bonnie Child MD [facility] [address] [place] [address] S/P ankle fusion (Primary Dx) Discharge Disposition: Home or Self Care Social History Tobacco Use Types Packs/Day Years Used Date Smoking Tobacco: Never Smokeless Tobacco: Never Alcohol Use Standard Drinks/Week Comments No 0 (1 standard drink = 0.6 oz pur e alcohol) Sex and Gender Information Value Date Recorded Sex Assigned at Not on file Gender Identity Not on file Sexual Orientation Not on file COVID-19 Exposure Response Date Recorded In the last 10 days, have yo u been in contact with someone who was confirmed or suspected to have Coronavirus/COVID-19? No / Unsure 11/11/2022 5:33 AM CDT documented as of this encounter Last Filed Vital Signs Vital Sign Reading Time Taken Comments Blood Pressure 116/80 11/12/2022 7:38 AM CDT Pulse 79 11/12/2022 7:38 AM CDT Temperature 37.2 ??C (98.9 ??F) 11/12/2022 7:38 AM CD T Respiratory Rate 18 11/12/2022 7:38 AM CDT Oxygen Saturation 96% 11/12/2022 7:38 AM CDT Inhaled Oxygen Concentration - - Weight 94.1 kg (207 lb 8 oz) 11/11/2022 6:09 AM CDT Height 182.9 cm (6') 11/11/2022 6:09 AM CDT Body Mass Index 28.14 11/11/2022 6:09 AM CDT documented in this encounter Discharge Instructions * Attachments The following attachments cannot be sent through Care Everywhere. * Ankle Replacement Surgery, Having (Portuguese) * Ankle Surgery, Discharge Instructions for (Portuguese) documented in this encounter Medications at Time of Discharge Medication Sig Dispensed Refills Start Date End Date acetaminophen (TYLENOL) 500 MG tablet Take 1-2 tablets by mouth every 6 hours as needed for mild pain 0 amLODIPine (NORVASC) 5 MG tablet Take 5 mg by mouth At Bedtime (at 22:30) 0 amoxicillin (AMOXIL) 500 MG capsule Take 4 capsules by mouth once as needed (1 hour prior to dental appointments 4 x 500 mg = 2,000 mg) 0 aspirin (ASA) 81 MG EC tabletIndications:VTE Prophylaxis Take 1 tablet (81 mg) by mouth 2 times daily 60 tablet 0 11/12/2022 aspirin 81 MG EC tablet Take 1 tablet (81 mg) by mouth daily Resume usual dose of aspirin after finishing increased dose prescribed after surgery 0 11/12/2022 tfbiqbg-ngrbnesbzgwvb-e affeine (EXCEDRIN MIGRAINE) 250-250-65 MG tablet Take 1 tablet by mouth every 6 hours as needed for headaches 0 augmented betamethasone dipropionate (DIPROLENE AF) 0.05 % external cream Apply topically 2 times daily as needed 0 clopidogrel (PLAVIX) 75 MG tablet Take 1 tablet by mouth daily 0 clotrimazole-betamethas one (LOTRISONE) creamIndications:Tinea Corporis Apply topically 2 times daily as needed (rash) 0 diclofenac (VOLTAREN) 1 % topical gel Apply 2 g topically 4 times daily as needed for moderate pain 0 eszopiclone (LUNESTA) 1 MG tablet Take 1 tablet by mouth At Bedtime 0 evolocumab (REPATHA) 140 MG/ML prefilled syringe Inject 140 mg Subcutaneous every 14 days 0 omeprazole (PRILOSEC) [address] capsule Take 1 capsule by mouth every evening (at 18:00) 0 ondansetron (ZOFRAN ODT) 4 MG ODT tabIndications:S/P ankle fusion Take 1 tablet (4 mg) by mouth every 6 hours as needed for nausea or vomiting 15 tablet 1 11/12/2022 oxyCODONE (ROXICODONE) 5 MG tabletIndications:S/P ankle fusion Take 1 tablet (5 mg) by mouth every 4 hours as needed for moderate pain 40 tablet 0 11/12/2022 Polyethyl Glycol-Propyl Glycol (SYSTANE OP) Place 1 drop into both eyes 2 times daily 0 senna-docusate (SENOKOT-S/PERICOLACE) 8.6-50 MG tabletIndications:S/P ankle fusion Take 1 tablet by mouth 2 times daily 40 tablet 1 11/12/2022 sotalol (BETAPACE) 80 MG tablet Take 0.5 tablets by mouth 2 times daily (0.5 x 80 mg = 40 mg) 0 Testosterone Enanthate (XYOSTED) 75 MG/0.5ML SOAJ Inject 75 mg Subcutaneous once a week (on Friday) 0 documented as of this encounter Progress Notes * Stoney Choe RN - 11/12/2022 10:36 AM CDT Stoplight tool education provided o the patient. Patient educated on risk for bleeding due to Xarelto. Home safety tips reviewed. All personal belongings accounted for. * Lolly Sena PA-C - 11/12/2022 8:30 AM CDT Orthopedic Surgery Chente Rubin 11/12/2022 Admit Date: 11/11/2022 POD 1 Day Post-Op S/P Procedure(s): Right Removal Total Ankle Prosthesis and Tibiotalocalcaneal Fusion Patient is doing well. Block has been wearing off and it is getting a little more painful. Tolerating oral intake. No events overnight. Voiding well. Alert and orient to person, place, and time. Vital Sign Ranges Temperature Temp Av ??F (36.7 ??C) Min: 97.3 ??F (36.3 ??C) Max: 98.9 ??F (37.2 ??C) Blood pressure Systolic (24hrs), Av , Min:116 , Max:144 Diastolic (24hrs), Av, Min:69, Max:100 Pulse Pulse Av.9 Min: 65 Max: 90 Respirations Resp Av.9 Min: 14 Max: 23 Pulse oximetry SpO2 Av.4 % Min: 91 % Max: 100 % Right splint is clean, dry, and intact. Minimal erythema of the surrounding skin. Left calf is soft, non-tender. Right lower extremity is NVI. Labs: Recent Labs Lab Test 06/13/17 1320 POTASSIUM 4.4 Recent Labs Lab Test 11/12/22 0635 04/25/20 0703 06/13/17 1320 HGB 12.8* 13.2* 14.2 No results for input(s): INR in the last 90550 hours. Recent Labs Lab Test 06/13/17 1320 PLT 229 A/P 1. S/p removal of total ankle prosthesis and tibiocalcaneal fusion Continue ASA for DVT prophylaxis. Mobilize with PT/OT TTWB. Continue current pain regiment. 2. Disposition Anticipate d/c to home today. Lolly Sena PA-C * Katelynn Ortiz RN - 11/12/2022 6:18 AM CDT Patient vital signs are at baseline:Yes Patient able to ambulate as they were prior to admission or with assist devices provided by therapies during their stay: Yes Patient MUST void prior to discharge: Yes Patient able to tolerate oral intake: Yes Pain has adequate pain control using Oral analgesics: Yes Does patient have an identified cross country/track and field coach: Yes Has goal D/C date and time been discussed with patient: Yes Pt is alert and oriented X 4, VSS on RA, PIV SL, regular diet. Pt is up with assist of one, dressing is CDI, CMS intact Pt weight bearing is toe touch. Discharge is 11/12/22 * Angel Vaughn - 11/08/2022 10:05 AM CDT RELATIONS COORDINATOR medications updated by Medication Scribe prior to surgery via phone call with patient??(last doses completed by Nurse) Medication history sources: Patient, H&P and Patient's home med list In the past week, patient estimated taking medication this percent of the time: Greater than 90% Significant changes made to the medication list: Patient reports no longer taking the following meds (med scribe removed from RELATIONS COORDINATOR med list): Apixaban, Hydroxyzine, Oxycodone, Pilocarpine Eye Solution, Hydromorphone, Senna-Docusate, Tadalafil Additional medication history information: Patient was advised to bring: Systane OP Medication reconciliation completed by provider prior to medication history? No Time spent in this activity: 40 minutes The information provided in this note is only as accurate as the sources available at the time of update(s) Prior to Admission medications Medication Sig Last Dose Taking? Auth Provider Intermediate End Date acetaminophen (TYLENOL) 500 MG tablet Take 1-2 tablets by mouth every 6 hours as needed for mild pain Unknown at prn Yes Reported, Patient No amLODIPine (NORVASC) 5 MG tablet Take 5 mg by mouth At Bedtime (at 22:30) at am Yes Reported, Patient Yes amoxicillin (AMOXIL) 500 MG capsule Take 4 capsules by mouth once as needed (1 hour prior to dentalappointments 4 x 500 mg = 2,000 mg) 11/07/2022 at am Yes Reported, Patient aspirin 81 MG EC tablet Take 1 tablet by mouth daily at am Yes Reported, Patient bluzdxn-ocdkkzojsqxyo-bkknxkhh (EXCEDRIN MIGRAINE) 250-250-65 MG tablet Take 1 tablet by mouth every 6 hours as needed for headaches Unknown at prn Yes Reported, Patient No augmented betamethasone dipropionate (DIPROLENE AF) 0.05 % external cream Apply topically 2 times daily as needed Unknown at prn Yes Reported, Patient clopidogrel (PLAVIX) 75 MG tablet Take 1 tablet by mouth daily 11/06/2022 at am Yes Reported, PatientYes clotrimazole-betamethasone (LOTRISONE) cream Apply topically 2 times daily as needed (rash) Unknownat prn Yes Reported, Patient diclofenac (VOLTAREN) 1 % topical gel Apply 2 g topically 4 times daily as needed for moderate painUnknown at prn Yes Reported, Patient eszopiclone (LUNESTA) 1 MG tablet Take 1 tablet by mouth At Bedtime at pm Yes Reported, Patient evolocumab (REPATHA) 140 MG/ML prefilled syringe Inject 140 mg Subcutaneous every 14 days 11/02/2022t Unknown Yes Reported, Patient omeprazole (PRILOSEC) [address] capsule Take 1 capsule by mouth every evening (at 18:00) at pm Yes Reported, Patient Polyethyl Glycol-Propyl Glycol (SYSTANE OP) Place 1 drop into both eyes 2 times daily 11/08/2022 at am Yes Reported, Patient sotalol (BETAPACE) 80 MG tablet Take 0.5 tablets by mouth 2 times daily (0.5 x 80 mg = 40 mg) at amYes Reported, Patient Testosterone Enanthate (XYOSTED) 75 MG/0.5ML SOAJ Inject 75 mg Subcutaneous once a week (on Friday)11/08/2022 at am Yes Reported, Patient Yes Medication history completed by: Victorino Vaughn CPhT [facility] documented in this encounter H&P Notes * Laurie Ekta Hazel Adiel - 11/11/2022 7:17 AM CDT I have reviewed the surgical (or preoperative) H&P that is linked to this encounter, and examined the patient. There are no significant changes Clinical Conditions Present on Arrival: Clinically Significant Risk Factors Present on Admission # Drug Induced Platelet Defect: home medication list includes an antiplatelet medication # Overweight: Estimated body mass index is 28.14 kg/m?? as calculated from the following: Height as of this encounter: 1.829 m (6'). Weight as of this encounter: 94.1 kg (207 lb 8 oz). Source Note - Outside, Provider - 11/06/2022 10:02 AM CDT documented in this encounter Miscellaneous Notes * Plan of Care - Briseyda Desir PT - 11/12/2022 11:08 AM CDT Physical Therapy Discharge Summary Reason for therapy discharge: All goals and outcomes met, no further needs identified. Progress towards therapy goal(s). See goals on Care Plan in [facility] electronic health record for goal details. Goals met Therapy recommendation(s): No further therapy is recommended. * Plan of Care - Briseyda Desir PT - 11/12/2022 10:09 AM CDT 11/12/22 0967 Appointment Info Signing Clinician's Name / Credentials (PT) Briseyda Desir DPT Living Environment People in Home spouse Current Living Arrangements house Transportation Anticipated family or friend will provide Living Environment Comments 6 stairs to navigate at MT has railing L side ascending. Self-Care Usual Activity Tolerance good Current Activity Tolerance moderate Equipment Currently Used at Home none Fall history within last six months no Activity/Exercise/Self-Care Comment Has knee scooter, crutches, able to assist General Information Onset of Illness/Injury or Date of Surgery 11/11/22 Referring Physician Stan Cornelius PA-C Pertinent History of Current Problem (include personal factors and/or comorbidities that impact thePOC) Right Removal Total Ankle Prosthesis and Tibiotalocalcaneal Fusion Weight-Bearing Status - LLE weight-bearing as tolerated Weight-Bearing Status - RLE toe touch weight-bearing General Observations Pt has hx of multiple R ankle surgeries, has 2 knee scooters at home Cognition Affect/Mental Status (Cognition) WNL Pain Assessment Patient Currently in Pain No Integumentary/Edema Integumentary/Edema Comments See nursing notes Posture Posture Forward head position Range of Motion (ROM) ROM Comment BLE WFL Strength (Manual Muscle Testing) Strength Comments Pt able to elevate RLE in/out of bed, gross functional strength > 3/5 Bed Mobility Comment, (Bed Mobility) SBA Transfers Comment, (Transfers) FWW STS CGA TTWB RLE maintained Gait/Stairs (Locomotion) Distance in Feet 3' eval, 150' treatment Distance in Feet (Gait) 75' x 2 Comment, (Gait/Stairs) pt ambulated with axillary crutches NWB RLE, SBA no LOB Balance Balance Comments Good dynamic balance with use of crutches Sensory Examination Sensory Perception Comments intact to light touch Clinical Impression Criteria for Skilled Therapeutic Intervention Yes, treatment indicated PT Diagnosis (PT) impaired IND with mobility from baseline Influenced by the following impairments Impaired high level dynamic balance, impaired gross functional strength Functional limitations due to impairments see above Clinical Presentation (PT Evaluation Complexity) Stable/Uncomplicated Clinical Presentation Rationale clinical judgement Clinical Decision Making (Complexity) low complexity Planned Therapy Interventions (PT) bed mobility training;gait training;home exercise program;patient/family education;transfer training Risk & Benefits of therapy have been explained evaluation/treatment results reviewed;care plan/treatment goals reviewed;risks/benefits reviewed;patient PT Total Evaluation Time PT Eval, Low Complexity Minutes (95621) 10 Plan of Care Review Plan of Care Reviewed With patient Physical Therapy Goals PT Frequency One time eval and treatment only PT Predicted Duration/Target Date for Goal Attainment 11/12/22 PT Goals Bed Mobility;Transfers;Gait;Stairs PT: Bed Mobility Supine to/from sit;Within precautions;Independent PT: Transfers Modified independent;Sit to/from stand;Bed to/from chair;Assistive device;Within precautions PT: Gait Modified independent;50 feet;Crutches;Within precautions PT: Stairs 6 stairs;Assistive device;Within precautions;Rail on left Interventions Interventions Quick Adds Gait Training;Therapeutic Activity Therapeutic Activity Therapeutic Activities: dynamic activities to improve functional performance Minutes (42065) 7 Treatment Detail/Skilled Intervention Eval complete, treatment indicated. Pt has all equipment needs met at home. Educated on TTWB RLE. Prefers to perform NWB mostly with mobility. Edu elevating at DC, use of knee scooter community and household distances, pt plans to use crutches at times in home.Pt demonstrates IND with bed mobility. CGA STS with crutches progressing to modified IND. End of session pt left supine needs in [facility] Gait Training Gait Training Minutes (10245) 10 Treatment Detail/Skilled Intervention Pt ambulated with crutches, CGA NWB. No LOB. does well with turns. Seated rest break. Up/down 4 steps use of crutches, tends to perform with greater than TTWB. Edu use of LHR and crutches for improved support and to perform NWB RLE, good improvement no LOB PT Discharge Planning PT Plan DC PT Rationale for DC Rec Defer to ortho team PT Brief overview of current status Pt has met IP PT goals, mod I with crutches, has crutches and knee scooter at home Total Session Time Timed Code Treatment Minutes 17 Total Session Time (sum of timed and untimed services) 27 * Plan of Care - Miguelina Wan RN - 11/11/2022 10:20 PM CDT Summary: Right Removal Total Ankle Prosthesis and Tibiotalocalcaneal Fusion Date & Time: 7175-8327 11/11 Orientation: A&Ox4 POD#0 Activity Level: Assist of 1 GB/W, up to hallways x1 Fall Risk: Yes Behavior & Aggression: Green Pain Management: Decreased with ice & rest ABNL VS/O2: VSS on RA Diet: Tolerating regular diet Bowel/Bladder: up to bathroom, adequate output Drains/Devices: IV SL Skin: R ankle incision CDI Anticipated DC Date: Pending Other Important Info: Toe touch weight bearing, & CMS intact * Care Plan - Bran Dennis RN - 11/11/2022 2:18 PM CDT Alert and oriented x4. VSS. Mostly denies pain. Up with one and walker. CMS intact. Voiding well. Plan to continue to monitor tonight. 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 SURGICAL PROCEDURE: 1. Removal of a Kimberly Talaris ankle replacement. 2. Tibiotalar calcaneal fusion using a Roger T2 intramedullary nakul with a femoral head allograft. ANESTHETIC: General. SURGEON: Bonnie Child MD TRIAGE TECHNICIAN: Kris Cornelius PA-C PREAMBLE: Mr. Rubin previously had a revision ankle replacement done. He never did well. The talarcomponent subsided through the talus onto the calcaneus. He has increasing pain. Informed consent was obtained for above-mentioned procedure. NEED FOR AN TRIAGE TECHNICIAN: A skilled tiler's assistant was necessary through all portions of the case in order to assist with positioning, retracting, wound closure, dressing and splint application. DESCRIPTION OF PROCEDURE: After adequate induction of a general anesthetic, the patient was positioned supine on the operating table. The right leg was sterilely prepped and free draped in the usual fashion. Tourniquet around the thigh was inflated to 300 mmHg. The previous midline incision was used anterior over the ankle. The interval between the extensor hallucis longus and tibialis anterior was used to expose the joint. There was dense scar tissue around the joint that was excised. The tibial component was well ingrown and osteotomes were used to loosen it from the tibia and then remove the tibial component. The talar component was loose. Dense scartissue and fibrotic tissue was removed from the tibia and talus, as well as the medial and lateral gutters. The acetabular reamer was then used to ream through the subchondral bone on the calcaneus as well as the tibia to expose good bleeding subchondral bone and creating a round recipient hole for femoralhead allograft. The femoral head allograft was then contoured to fill in the gap. The sclerotic bone around the head was removed and multiple drill holes made. The femoral head was then impacted in place with excellent apposition. At this point, an incision was made plantar over the calcaneus. A guide pin was inserted through the calcaneus and the femoral head into the tibia. It was then overreamed to a size 13 mm diameter reamer. A 150 x 12 [place] T2 nakul was then impacted in place. The calcaneal interlocking screw was first inserted that allowed for further compression across the femoral head as well as the tibia. The lateral talar screw was then inserted, followed by a medial tibial screw. Finally, the posterior 2 anterior calcaneal screws were inserted to lock the nakul in place. Excellent alignment and position was obtained. The tourniquet was deflated. Hemostasis obtained. A large Infuse was packed around the femoral head. The bone slurry that was created by the reamer was also packed posterior medial and lateral aroundthe fusion site. The wound was closed in layers. A sterile dressing and a light compressive bandage applied, followed by a short leg cast. He tolerated the procedure well and was taken to the recovery room in satisfactory condition. He can ambulate, toe touch weightbearing with crutches. Sutures will be removed in 2 weeks. Bonnie Child MD MT: Name: CHENTE RUBIN MRN: [id number] Account: [id number] : 1945 Procedure Date: 11/11/2022 Document: [id number] * Provider Notification - Emily Pearce RN - 11/11/2022 6:16 AM CDT Upon arrival to preop this morning patient admits to cutting his toenails last evening and cutting himself on the right (surgical side) great toe and 5th toe. Upon inspection site has been bleeding and is missing skin. Patient had been on Eliquis and aspirin but has since switched to plavix only per patient. Text and picture sent to MESSI Ponce via travel pt. Edy Ponce OK to proceed. Patient notified. documented in this encounter Plan of Treatment Not on file documented as of this encounter Procedures Procedure Name Priority Date/Time Associated Diagnosis Comments HEMOGLOBIN Routine 11/12/2022 6:35 AM CDT GLUCOSE BY METER Routine 11/12/2022 6:01 AM CDT GLUCOSE BY METER Routine 11/12/2022 1:49 AM CDT XR SURGERY ZAK FLUORO LESS THAN 5 MIN W STILLS Routine 11/11/2022 8:25 AM CDT FUSION, TIBIOTALOCALCANEAL, USING INTRAMEDULLARY NAKUL 11/11/2022 7:18 AM CDT Senile arthritis Case Notes IMPLANTS REVIEWED Special Needs Out: Kimberly In: Roger T2 Nakul Large InfuseRIGHT LATERALITY CONFIRMED BY PATIENT REMOVAL, HARDWARE, ANKLE 11/11/2022 7:18 AM CDT Senile arthritis Case Notes IMPLANTS REVIEWED Special Needs Out: Kimberly In: Roger T2 Nakul Large InfuseRIGHT LATERALITY CONFIRMED BY PATIENT documented in this encounter Results * (ABNORMAL) Hemoglobin (11/12/2022 6:35 AM CDT) Hemoglobin 12.8(L) 13.3 - 17.7 g/dL 11/12/2022 7:27 AM CDT LABORATORY Blood STRUCTURE OF RIGHT UPPER LIMB / Unknown Venipuncture / Unknown 11/12/2022 6:35 AM CDT 11/12/2022 7:22 AM CDT Stan Cornelius PA-C LAB - BLOOD [facility] [address], [address] [place] [address], [facility] [phone] * (ABNORMAL) Glucose by meter (11/12/2022 6:01 AM CDT) GLUCOSE BY METER POCT 117(H) 70 - 99 mg/dL 11/12/2022 6:08 AM CDT LABORATORY POC Blood, Capillary BLOOD SPECIMEN / Unknown 11/12/2022 6:01 AM CDT 11/12/2022 6:08 AM CDT Bonnie [facility] POCT Performing Organization Address City/[facility]/ZIP Co de Phone Number LABORATORY POC [facility] [address], [address] [place] [address], [facility] [phone] * (ABNORMAL) Glucose by meter (11/12/2022 1:49 AM CDT) [facility] GLUCOSE BY METER POCT 141(H) 70 - 99 mg/dL 11/12/2022 1:55 AM CDT LABORATORY POC Blood, Capillary BLOOD SPECIMEN / Unknown 11/12/2022 1:49 AM CDT 11/12/2022 1:55 AM CDT Bonnie [facility] POCT LABORATORY POC [facility] [address], [place] [address], [facility] [phone] * XR Surgery ZAK Fluoro Less Than 5 Min w Stills (11/11/2022 8:25 AM CDT) Anatomical Region Laterality Modality Abdomen/Pelvis Radio Fluoroscop y Impressions 11/11/2022 9:09 AM CDT IMPRESSION: Intraprocedural spot films demonstrate reported right total ankle arthroplasty removal and placement of tibiotalocalcaneal naukl and screw fixation. Please reference the surgical report for further details. CJ MCGRATH MD SYSTEM ID: [id number] Narrative 11/11/2022 9:09 AM CDT XR SURGERY ZAK FLUORO LESS THAN 5 MIN W STILLS 11/11/2022 8:25 AM HISTORY: Removal of right total ankle with tibiotalocaneal fusion. C-zak #3, fluoro time 0.5 mins, 6 films. NUMBER OF IMAGES ACQUIRED: 6 VIEWS: 2 FLUOROSCOPY TIME: 0.5 minutes Procedure Note Cj Mcgrath MD - 11/11/2022 XR SURGERY ZAK FLUORO LESS THAN 5 MIN W STILLS 11/11/2022 8:25 AM HISTORY: Removal of right total ankle with tibiotalocaneal fusion. C-zak #3, fluoro time 0.5 mins, 6 films. NUMBER OF IMAGES ACQUIRED: 6 VIEWS: 2 FLUOROSCOPY TIME: 0.5 minutes IMPRESSION: Intraprocedural spot films demonstrate reported right total ankle arthroplasty removal and placement of tibiotalocalcaneal nakul and screw fixation. Please reference the surgical report for further details. CJ MCGRATH MD SYSTEM ID: [id number] Bonnie Child MD IMG DIAGNOSTIC [facility] GING ORDERABLES documented in this encounter Visit Diagnoses Diagnosis S/P ankle fusion- Primary Other postprocedural status S/P ankle fusion Other postprocedural status documented in this encounter Admitting Diagnoses Diagnosis S/P ankle fusion Other postprocedural status documented in this encounter Administered Medications Inactive Administered Medications - up to 3 most recent administrations Medication Order MAR Action Action Date Dose Rate Site acetaminophen (TYLENOL) tablet 975 mg 975 mg, Oral, EVERY 8 HOURS, First dose on Fri11/11/22 at 1400, For 3 days, Administer for multimodal surgical pain management. Maximum acetaminophen dose from all sources = 75 mg/kg/day not to exceed 4 grams/day. $Given 11/12/2022 5:46 AM CDT 975 mg $Given 11/11/2022 10:01 PM CDT 975 mg $Given 11/11/2022 1:24 PM CDT 975 mg amLODIPine (NORVASC) tablet 5 mg 5 mg, Oral, DAILY, First dose (after last modification) on Fri11/12/22 at 0900 $Given 11/12/2022 8:35 AM CDT 5 mg aspirin EC tablet 81 mg 81 mg, Oral, 2 TIMES DAILY, First dose on Fri11/11/22 at 1130, Indications: VTE Prophylaxis, DO NOT CRUSH. $Given 11/12/2022 8:35 AM CDT 81 mg $Given 11/11/2022 10:02 PM CDT 81 mg $Given 11/11/2022 12:25 PM CDT 81 mg carboxymethylcellulose PF (REFRESH PLUS) 0.5 % ophthalmic solution 1 drop 1 drop, Both Eyes, 2 TIMES DAILY, First dose on Fri11/11/22 at 2300 $Given 11/12/2022 8:35 AM CDT 1 drop ceFAZolin (ANCEF) 2 g in 100 mL D5W intermittent infusion Routine, 2 g, Intravenous, EVERY 8 HOURS, First dose on Fri11/11/22 at 1500, For 2 doses, First post-op dose due 8 hours after intra-op dose, see eMAR. , Indications: Perioperative Pharmacoprophylaxis $New Bag 11/11/2022 10:03 PM CDT 2 g 200 mL/hr $New Bag 11/11/2022 2:09 PM CDT 2 g 200 mL/hr clopidogrel (PLAVIX) tablet 75 mg 75 mg, Oral, DAILY, First dose on Fri11/12/22 at 0900 $Given 11/12/2022 8:35 AM CDT 75 mg eszopiclone (LUNESTA) tablet 1 mg 1 mg, Oral, AT BEDTIME, First dose on Fri11/11/22 at 2200 $Given 11/11/2022 10:02 PM CDT 1 mg HYDROmorphone (DILAUDID) injection 0.2 mg 0.2 mg, Intravenous, EVERY 2 HOURS PRN, moderate pain, Starting on Fri11/11/22 at 1119, IF patient unable to take oral pain medication or pain not controlled with oral analgesics. Hold IV PRN opioid dose for analgesic side effects. Notify provider to assess for uncontrolled pain or analgesic side effects. HYDROmorphone (DILAUDID) injection 0.4 mg 0.4 mg, Intravenous, EVERY 2 HOURS PRN, severe pain, Starting on Fri11/11/22 at 1119, IF patient unable to take oral pain medication or pain not controlled with oral analgesics. Hold IV PRN opioid dose for analgesic side effects. Notify provider to assess for uncontrolled pain or analgesic side effects. lactated ringers infusion at 10 mL/hr, Intravenous, CONTINUOUS, IF patient NOT on dialysis., Starting on Fri11/11/22 at 0630, Until Fri11/12/22 at 1308 $New Bag 11/11/2022 8:42 AM CDT Restarted 11/11/2022 7:18 AM CDT $New Bag 11/11/2022 6:47 AM CDT 10 mL/hr lactated ringers infusion at 100 mL/hr, Intravenous, CONTINUOUS, Change to saline lock when PO well tolerated., Starting on Fri11/11/22 at 1130, Until Fri11/12/22 at 1308 $New Bag 11/11/2022 12:26 PM CDT 100 mL/hr midazolam (VERSED) injection 2 mg 2 mg, Intravenous, Administer over 2 Minutes, ONCE, On Fri11/11/22 at 0730, For 1 dose, With nerve block This drug may cause significant respiratory depression. Monitor respiratory status and vital signs carefully for 1 hour after each dose., Pre-procedure $Given 11/11/2022 7:01 AM CDT 1.5 mg naloxone (NARCAN) injection 0.2 mg 0.2 mg, Intravenous, EVERY 2 MIN PRN, opioid reversal, Starting on Fri11/11/22 at 1127, Administer intravenous route when available and notify provider when administered. For unintended sedation or respiratory depression if all of the below criteria are met: ~ respiratory rate LESS than or EQUAL to 8. ~SaO2 less than 92% and or/end-tidal CO2 is greater than 50. ~ the patient is receiving an opioid, has unintended sedations assessed as RASS (-3), and is currently not on mechanical ventilation. RASS scale moderate (-3) is movement or eye opening to voice but no eye contact. Patient Monitoring Once the patient has demonstrated a response to the naloxone, continue to monitor respiratory rate, depth, oxygen saturation and end-tidal CO2 (if available) every 15 minutes x 2, then every 30 minutes x 2, then every 1 hour x 1 after each naloxone dose. Consider transfer to ICU if patient respiratory parameters have not improved after 4 naloxone doses. naloxone (NARCAN) injection 0.2 mg 0.2 mg, Intramuscular, EVERY 2 MIN PRN, opioid reversal, Starting on Fri11/11/22 at 1127, Administer intramuscular if an intravenous route is not available and notify provider when administered. For unintended sedation or respiratory depression if all of the below criteria are met: ~ respiratory rate LESS than or EQUAL to 8. ~SaO2 less than 92% and or/end-tidal CO2 is greater than 50. ~ the patient is receiving an opioid, has unintended sedations assessed as RASS (-3), and is currently not on mechanical ventilation. RASS scale moderate (-3) is movement or eye opening to voice but no eye contact. Patient Monitoring Once the patient has demonstrated a response to the naloxone, continue to monitor respiratory rate, depth, oxygen saturation and end-tidal CO2 (if available) every 15 minutes x 2, then every 30 minutes x 2, then every 1 hour x 1 after each naloxone dose. Consider transfer to ICU if patient respiratory parameters have not improved after 4 naloxone doses. naloxone (NARCAN) injection 0.4 mg 0.4 mg, Intravenous, EVERY 2 MIN PRN, opioid reversal, Starting on Fri11/11/22 at 1127, Administer intravenous route when available and notify provider when administered. For unintended sedation or respiratory depression if all of the below criteria are met: ~ respiratory rate LESS than or EQUAL to 8. ~ SaO2 less than 92% and or/end-tidal CO2 is greater than 50. ~ the patient is receiving an opioid, has unintended sedation assessed as RASS (-4) or (-5) and patient is currently not on mechanical ventilation. RASS scale (-4) is deep sedation with no response to voice but movement or eye opening to physical stimulation. RASS scale (-5) is unarousable. Patient Monitoring Once the patient has demonstrated a response to the naloxone, continue to monitor respiratory rate, depth, oxygen saturation and end-tidal CO2 (if available) every 15 minutes x 2, then every 30 minutes x 2, then every 1 hour x 1 after each naloxone dose. Consider transfer to ICU if patient respiratory parameters have not improved after 4 naloxone doses. naloxone (NARCAN) injection 0.4 mg 0.4 mg, Intramuscular, EVERY 2 MIN PRN, opioid reversal, Starting on Fri11/11/22 at 1127, Administer intramuscular if an intravenous route is not available and notify provider when administered. For unintended sedation or respiratory depression if all of the below criteria are met: ~ respiratory rate LESS than or EQUAL to 8. ~ SaO2 less than 92% and or/end-tidal CO2 is greater than 50. ~ the patient is receiving an opioid, has unintended sedation assessed as RASS (-4) or (-5) and patient is currently not on mechanical ventilation. RASS scale (-4) is deep sedation with no response to voice but movement or eye opening to physical stimulation. RASS scale (-5) is unarousable. Patient Monitoring Once the patient has demonstrated a response to the naloxone, continue to monitor respiratory rate, depth, oxygen saturation and end-tidal CO2 (if available) every 15 minutes x 2, then every 30 minutes x 2, then every 1 hour x 1 after each naloxone dose. Consider transfer to ICU if patient respiratory parameters have not improved after 4 naloxone doses. ondansetron (ZOFRAN ODT) ODT tab 4 mg 4 mg, Oral, EVERY 6 HOURS PRN, nausea, vomiting, Starting on Fri11/11/22 at 1119, This is Step 1 of nausea and vomiting management. If nausea not resolved in 15 minutes, go to Step 2 prochlorperazine (COMPAZINE). Do not push through foil backing. Peel back foil and gently remove. Place on tongue immediately. Administration with liquid unnecessary With dry hands, peel back foil backing and gently remove tablet. Do not push oral disintegrating tablet through foil backing. Administer immediately on tongue and oral disintegrating tablet dissolves in seconds, then swallow with saliva. Liquid not required. ondansetron (ZOFRAN) injection 4 mg 4 mg, Intravenous, EVERY 6 HOURS PRN, nausea, vomiting, Administer over 2-5 Minutes, Starting on Fri11/11/22 at 1119, This is Step 1 of nausea and vomiting management. If nausea not resolved in 15 minutes, go to Step 2 prochlorperazine (COMPAZINE). Irritant. oxyCODONE (ROXICODONE) tablet 10 mg 10 mg, Oral, EVERY 4 HOURS PRN, severe pain, Starting on Fri11/11/22 at 1119, Hold oral PRN dose for analgesic side effects. Notify provider to assess for uncontrolled pain or analgesic side effects. 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 oxyCODONE (ROXICODONE) tablet 5 mg 5 mg, Oral, EVERY 4 HOURS PRN, moderate pain, Starting on Fri11/11/22 at 1119, Hold oral PRN dose for analgesic side effects. Notify provider to assess for uncontrolled pain or analgesic side effects. 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 pantoprazole (PROTONIX) EC tablet 40 mg 40 mg, Oral, 2 TIMES DAILY, First dose on Fri11/11/22 at 2100 $Given 11/12/2022 8:35 AM CDT 40 mg $Given 11/11/2022 10:02 PM CDT 40 mg polyethylene glycol (MIRALAX) Packet 17 g 17 g, Oral, DAILY, First dose on Fri11/12/22 at 0900, To prevent constipation. Mixed prescribed dose in 8 ounces of water, juice or soda. Administer daily starting at 0900 on POD 1. Hold for loose stools. 1 Packet = 17 grams. Mix each gram with at least 1/2 ounce (15 mL) of water - 8 ounces for 17 g dose, 4 ounces for 8.5 g dose, 2 ounces for 4 g dose. Follow with the same volume of water. Hold for loose stools unless being administered as part of a bowel prep regimen or bowel clean out. $Given 11/12/2022 9:45 AM CDT 17 g prochlorperazine (COMPAZINE) injection 5 mg 5 mg, Intravenous, EVERY 6 HOURS PRN, nausea, vomiting, Administer over 1-2 Minutes, Starting on Fri11/11/22 at 1119, This is Step 2 of nausea and vomiting management. If nausea not resolved in 15-30 minutes, Notify provider. prochlorperazine (COMPAZINE) tablet 5 mg 5 mg, Oral, EVERY 6 HOURS PRN, nausea, vomiting, Starting on Fri11/11/22 at 1119, This is Step 2 of nausea and vomiting management. If nausea not resolved in 15-30 minutes, Notify provider. senna-docusate (SENOKOT-S/PERICOLACE) 8.6-50 MG per tablet 1 tablet 1 tablet, Oral, 2 TIMES DAILY, First dose on Fri11/11/22 at 1130, To prevent constipation. Hold for loose stools Hold for loose stools. $Given 11/12/2022 8:35 AM CDT 1 tablet $Given 11/11/2022 10:02 PM CDT 1 tablet sodium chloride (PF) 0.9% PF flush 3 mL 3 mL, Intracatheter, EVERY 8 HOURS, First dose on Fri11/11/22 at 0630, to lock peripheral IV dormant line $Given 11/12/2022 5:47 AM CDT 3 mLs $Given 11/11/2022 10:48 PM CDT 3 mLs sodium chloride (PF) 0.9% PF flush 3 mL 3 mL, Intracatheter, EVERY 8 HOURS, First dose on Fri11/11/22 at 1130, to lock peripheral IV dormant line $Given 11/12/2022 4:33 AM CDT 3 mLs $Given 11/11/2022 10:48 PM CDT 3 mLs sotalol (BETAPACE) half-tab 40 mg 40 mg, Oral, 2 TIMES DAILY, First dose on Fri11/11/22 at 2100 $Given 11/12/2022 9:45 AM CDT 40 mg $Given 11/11/2022 10:02 PM CDT 40 mg documented in this encounter Active and Recently Administered Medications Times are shown in CDT. Scheduled Medication Order 11/10/2022 11/11/2022 11/12/2022 acetaminophen (TYLENOL) tablet 975 mg 975 mg, Oral, EVERY 8 HOURS, First dose on Fri11/11/22 at 1400, For 3 days, Administer for multimodal surgical pain management. Maximum acetaminophen dose from all sources = 75 mg/kg/day not to exceed 4 grams/day. 1324 ($Given - Provider: Bran Dennis RN)2201 ($Given - Provider: Miguelina Wan RN) 0546 ($Given - Provider: Katelynn Ortiz RN) amLODIPine (NORVASC) tablet 5 mg 5 mg, Oral, DAILY, First dose (after last modification) on Fri11/12/22 at 0900 0835 ($Given - Provider: Stoney Choe RN) aspirin EC tablet 81 mg 81 mg, Oral, 2 TIMES DAILY, First dose on Fri11/11/22 at 1130, Indications: VTE Prophylaxis, DO NOT CRUSH. 1225 ($Given - Provider: Bran Dennis RN)2202 ($Given - Provider: Miguelina Wan RN) 0835 ($Given - Provider: Stoney Choe RN) carboxymethylcellulose PF (REFRESH PLUS) 0.5 % ophthalmic solution 1 drop 1 drop, Both Eyes, 2 TIMES DAILY, First dose on Fri11/11/22 at 2300 2247 (Not Given - Provider: Miguelina Wan RN - Reason: Other - Comment: pt has his own) 0835 ($Given - Provider: Stoney Choe RN) ceFAZolin (ANCEF) 2 g in 100 mL D5W intermittent infusion (COMPLETED) Routine, 2 g, Intravenous, EVERY 8 HOURS, First dose on Fri11/11/22 at 1500, For 2 doses, First post-op dose due 8 hours after intra-op dose, see eMAR. , Indications: Perioperative Pharmacoprophylaxis 1409 ($New Bag - Provider: Bran Dennis RN)2203 ($New Bag - Provider: Miguelina Wan RN) ceFAZolin Sodium (ANCEF) injection 2 g (COMPLETED) Routine, 2 g, Intravenous, PRE-OP/PRE-PROCEDURE, Starting on Fri11/11/22 at 0601, For 1 dose, Give first dose within 1 hour PRIOR to incision. If patient weight is greater than or equal to 120 kg increase dose to 3 g., Indications: Perioperative Pharmacoprophylaxis, Pre-procedure 0718 ($Given - Provider: Serena Ford APRN CRNA) clopidogrel (PLAVIX) tablet 75 mg 75 mg, Oral, DAILY, First dose on Fri11/12/22 at 0900 0835 ($Given - Provider: Stoney Choe RN) eszopiclone (LUNESTA) tablet 1 mg 1 mg, Oral, AT BEDTIME, First dose on Fri11/11/22 at 2200 2202 ($Given - Provider: Miguelina Wan RN) midazolam (VERSED) injection 2 mg (COMPLETED) 2 mg, Intravenous, Administer over 2 Minutes, ONCE, On Fri11/11/22 at 0730, For 1 dose, With nerve block This drug may cause significant respiratory depression. Monitor respiratory status and vital signs carefully for 1 hour after each dose., Pre-procedure 0701 ($Given - Provider: Emily Pearce RN - Comment: vorb give 1.5mg now) pantoprazole (PROTONIX) EC tablet 40 mg 40 mg, Oral, 2 TIMES DAILY, First dose on Fri11/11/22 at 2100 2202 ($Given - Provider: Miguelina Wan RN) 0835 ($Given - Provider: Stoney Choe RN) polyethylene glycol (MIRALAX) Packet 17 g 17 g, Oral, DAILY, First dose on Fri11/12/22 at 0900, To prevent constipation. Mixed prescribed dose in 8 ounces of water, juice or soda. Administer daily starting at 0900 on POD 1. Hold for loose stools. 1 Packet = 17 grams. Mix each gram with at least 1/2 ounce (15 mL) of water - 8 ounces for 17 g dose, 4 ounces for 8.5 g dose, 2 ounces for 4 g dose. Follow with the same volume of water. Hold for loose stools unless being administered as part of a bowel prep regimen or bowel clean out. 0945 ($Given - Provider: Stoney Choe RN) senna-docusate (SENOKOT-S/PERICOLACE) 8.6-50 MG per tablet 1 tablet 1 tablet, Oral, 2 TIMES DAILY, First dose on Fri11/11/22 at 1130, To prevent constipation. Hold for loose stools Hold for loose stools. 1218 (Not Given - Provider: Bran Dennis RN - Reason: Patient/family refused)2202 ($Given - Provider: Miguelina Wan RN) 0835 ($Given - Provider: Stoney Choe RN) sodium chloride (PF) 0.9% PF flush 3 mL 3 mL, Intracatheter, EVERY 8 HOURS, First dose on Fri11/11/22 at 0630, to lock peripheral IV dormant line 1218 (Canceled Entry - Provider: Bran Dennis RN)1430 (Canceled Entry - Provider: Bran Dennis RN)2248 ($Given - Provider: Miguelina Wan RN) 0547 ($Given - Provider: Katelynn Ortiz, ISELA) sodium chloride (PF) 0.9% PF flush 3 mL 3 mL, Intracatheter, EVERY 8 HOURS, First dose on Fri11/11/22 at 1130, to lock peripheral IV dormant line 1128 (Not Given - Provider: Bran Dennis RN - Reason: IV Infusing)2248 ($Given - Provider: Miguelina Wan RN) 0433 ($Given - Provider: Katelynn Ortiz, ISELA)1130 (Canceled Entry - Provider: Orders Generic Provider - Comment: Automatically canceled at discontinue of medication order) sotalol (BETAPACE) half-tab 40 mg 40 mg, Oral, 2 TIMES DAILY, First dose on Fri11/11/22 at 2100 2202 ($Given - Provider: Miguelina Wan, ISELA) 0945 ($Given - Provider: Stoney Choe RN) Continuous Medication Order 11/10/2022 11/11/2022 11/12/2022 lactated ringers infusion at 10 mL/hr, Intravenous, CONTINUOUS, IF patient NOT on dialysis., Starting on Fri11/11/22 at 0630, Until Fri11/12/22 at 1308 0647 ($New Bag - Provider: Emily Pearce RN)0717 (Paused - Provider: Serena Ford APRN CRNA - Comment: Switch to gravity)0718 (Restarted - Provider: Serena Ford APRN CRNA - Comment: Infused pre-op)0814 (Anesthesia Volume Adjustment - Provider: Serena Ford APRN CRNA)0842 ($New Bag - Provider: Serena Ford APRN CRNA) lactated ringers infusion at 100 mL/hr, Intravenous, CONTINUOUS, Change to saline lock when PO well tolerated., Starting on Fri11/11/22 at 1130, Until Fri11/12/22 at 1308 1226 ($New Bag - Provider: Bran Dennis RN) PRN Medication Order 11/10/2022 11/11/2022 11/12/2022 acetaminophen (TYLENOL) tablet 650 mg 650 mg, Oral, EVERY 4 HOURS PRN, other, For optimal non-opioid multimodal pain management to improve pain control., Starting on Azucena 11/14/22 at 0000, May give first dose 4 hours after last scheduled dose of acetaminophen (TYLENOL). Maximum acetaminophen dose from all sources = 75 mg/kg/day not to exceed 4 grams/day. kdajsen-gpldbbrvxpijs-qimosoxj (EXCEDRIN MIGRAINE) per tablet 1 tablet 1 tablet, Oral, EVERY 6 HOURS PRN, headaches, Starting on Fri11/11/22 at 1119, Each tablet contains 250 mg of acetaminophen augmented betamethasone dipropionate (DIPROLENE AF) 0.05 % cream Topical, 2 TIMES DAILY PRN, itching, Starting on Fri11/11/22 at 1119, Apply to affected area. benzocaine-menthol (CHLORASEPTIC) 6-10 MG lozenge 1 lozenge 1 lozenge, Buccal, EVERY 1 HOUR PRN, sore throat, sore throat without fever, Starting on Fri11/11/22 at 1119 bisacodyl (DULCOLAX) suppository 10 mg 10 mg, Rectal, DAILY PRN, constipation, Use if Magnesium hydroxide (MILK of MAGNESIA) not effective after 24 hours. May discontinue if patient having bowel movement., Starting on Fri11/11/22 at 1119, Hold for loose stools. clotrimazole-betamethasone (LOTRISONE) cream Topical, 2 TIMES DAILY PRN, rash, Starting on Fri11/11/22 at 1119, Apply to affected area. HYDROmorphone (DILAUDID) injection 0.2 mg(Linked Group 1) 0.2 mg, Intravenous, EVERY 2 HOURS PRN, moderate pain, Starting on Fri11/11/22 at 1119, IF patient unable to take oral pain medication or pain not controlled with oral analgesics. Hold IV PRN opioid dose for analgesic side effects. Notify provider to assess for uncontrolled pain or analgesic side effects. HYDROmorphone (DILAUDID) injection 0.4 mg(Linked Group 1) 0.4 mg, Intravenous, EVERY 2 HOURS PRN, severe pain, Starting on Fri11/11/22 at 1119, IF patient unable to take oral pain medication or pain not controlled with oral analgesics. Hold IV PRN opioid dose for analgesic side effects. Notify provider to assess for uncontrolled pain or analgesic side effects. hydrOXYzine (ATARAX) tablet 10 mg 10 mg, Oral, EVERY 6 HOURS PRN, other, adjuvant pain, Starting on Fri11/11/22 at 1119 lidocaine (LMX4) cream Topical, EVERY 1 HOUR PRN, pain, with VAD insertion, Starting on Fri11/11/22 at 1119, Apply at least 30 minutes prior to VAD insertion in divided doses as needed for size of site for insertion. MAX Dose: 2.5 g (?? of 5 g tube) Do NOT give if patient has a history of allergy to any local anesthetic or any robbie product. Do NOT use both lidocaine intradermal/subcutaneous injection and the lidocaine cream on the same site. lidocaine 1 % 0.1-1 mL 0.1-1 mL, Other, EVERY 1 HOUR PRN, mild pain with VAD insertion, Starting on Fri11/11/22 at 1119, MAX dose 1 mL subcutaneous OR intradermal along the side of the vein in divided doses as needed for VAD insertion. Do NOT give if patient has a history of allergy to any local anesthetic or any robbie product. Do NOT use both lidocaine intradermal/subcutaneous injection and the lidocaine cream on the same site. magnesium hydroxide (MILK OF MAGNESIA) suspension 30 mL 30 mL, Oral, DAILY PRN, constipation, Use if preventive measures (senna-docusate, docusate, and polyethylene glycol) are not effective., Starting on Fri11/11/22 at 1119, Shake well. Hold for loose stools. naloxone (NARCAN) injection 0.2 mg(Linked Group 2) 0.2 mg, Intravenous, EVERY 2 MIN PRN, opioid reversal, Starting on Fri11/11/22 at 1127, Administer intravenous route when available and notify provider when administered. For unintended sedation or respiratory depression if all of the below criteria are met: ~ respiratory rate LESS than or EQUAL to 8. ~SaO2 less than 92% and or/end-tidal CO2 is greater than 50. ~ the patient is receiving an opioid, has unintended sedations assessed as RASS (-3), and is currently not on mechanical ventilation. RASS scale moderate (-3) is movement or eye opening to voice but no eye contact. Patient Monitoring Once the patient has demonstrated a response to the naloxone, continue to monitor respiratory rate, depth, oxygen saturation and end-tidal CO2 (if available) every 15 minutes x 2, then every 30 minutes x 2, then every 1 hour x 1 after each naloxone dose. Consider transfer to ICU if patient respiratory parameters have not improved after 4 naloxone doses. naloxone (NARCAN) injection 0.2 mg(Linked Group 2) 0.2 mg, Intramuscular, EVERY 2 MIN PRN, opioid reversal, Starting on Fri11/11/22 at 1127, Administer intramuscular if an intravenous route is not available and notify provider when administered. For unintended sedation or respiratory depression if all of the below criteria are met: ~ respiratory rate LESS than or EQUAL to 8. ~SaO2 less than 92% and or/end-tidal CO2 is greater than 50. ~ the patient is receiving an opioid, has unintended sedations assessed as RASS (-3), and is currently not on mechanical ventilation. RASS scale moderate (-3) is movement or eye opening to voice but no eye contact. Patient Monitoring Once the patient has demonstrated a response to the naloxone, continue to monitor respiratory rate, depth, oxygen saturation and end-tidal CO2 (if available) every 15 minutes x 2, then every 30 minutes x 2, then every 1 hour x 1 after each naloxone dose. Consider transfer to ICU if patient respiratory parameters have not improved after 4 naloxone doses. naloxone (NARCAN) injection 0.4 mg(Linked Group 2) 0.4 mg, Intravenous, EVERY 2 MIN PRN, opioid reversal, Starting on Fri11/11/22 at 1127, Administer intravenous route when available and notify provider when administered. For unintended sedation or respiratory depression if all of the below criteria are met: ~ respiratory rate LESS than or EQUAL to 8. ~ SaO2 less than 92% and or/end-tidal CO2 is greater than 50. ~ the patient is receiving an opioid, has unintended sedation assessed as RASS (-4) or (-5) and patient is currently not on mechanical ventilation. RASS scale (-4) is deep sedation with no response to voice but movement or eye opening to physical stimulation. RASS scale (-5) is unarousable. Patient Monitoring Once the patient has demonstrated a response to the naloxone, continue to monitor respiratory rate, depth, oxygen saturation and end-tidal CO2 (if available) every 15 minutes x 2, then every 30 minutes x 2, then every 1 hour x 1 after each naloxone dose. Consider transfer to ICU if patient respiratory parameters have not improved after 4 naloxone doses. naloxone (NARCAN) injection 0.4 mg(Linked Group 2) 0.4 mg, Intramuscular, EVERY 2 MIN PRN, opioid reversal, Starting on Fri11/11/22 at 1127, Administer intramuscular if an intravenous route is not available and notify provider when administered. For unintended sedation or respiratory depression if all of the below criteria are met: ~ respiratory rate LESS than or EQUAL to 8. ~ SaO2 less than 92% and or/end-tidal CO2 is greater than 50. ~ the patient is receiving an opioid, has unintended sedation assessed as RASS (-4) or (-5) and patient is currently not on mechanical ventilation. RASS scale (-4) is deep sedation with no response to voice but movement or eye opening to physical stimulation. RASS scale (-5) is unarousable. Patient Monitoring Once the patient has demonstrated a response to the naloxone, continue to monitor respiratory rate, depth, oxygen saturation and end-tidal CO2 (if available) every 15 minutes x 2, then every 30 minutes x 2, then every 1 hour x 1 after each naloxone dose. Consider transfer to ICU if patient respiratory parameters have not improved after 4 naloxone doses. ondansetron (ZOFRAN ODT) ODT tab 4 mg(Linked Group 3) 4 mg, Oral, EVERY 6 HOURS PRN, nausea, vomiting, Starting on Fri11/11/22 at 1119, This is Step 1 of nausea and vomiting management. If nausea not resolved in 15 minutes, go to Step 2 prochlorperazine (COMPAZINE). Do not push through foil backing. Peel back foil and gently remove. Place on tongue immediately. Administration with liquid unnecessary With dry hands, peel back foil backing and gently remove tablet. Do not push oral disintegrating tablet through foil backing. Administer immediately on tongue and oral disintegrating tablet dissolves in seconds, then swallow with saliva. Liquid not required. ondansetron (ZOFRAN) injection 4 mg(Linked Group 3) 4 mg, Intravenous, EVERY 6 HOURS PRN, nausea, vomiting, Administer over 2-5 Minutes, Starting on Fri11/11/22 at 1119, This is Step 1 of nausea and vomiting management. If nausea not resolved in 15 minutes, go to Step 2 prochlorperazine (COMPAZINE). Irritant. oxyCODONE (ROXICODONE) tablet 10 mg(Linked Group 4) 10 mg, Oral, EVERY 4 HOURS PRN, severe pain, Starting on Fri11/11/22 at 1119, Hold oral PRN dose for analgesic side effects. Notify provider to assess for uncontrolled pain or analgesic side effects. 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 oxyCODONE (ROXICODONE) tablet 5 mg(Linked Group 4) 5 mg, Oral, EVERY 4 HOURS PRN, moderate pain, Starting on Fri11/11/22 at 1119, Hold oral PRN dose for analgesic side effects. Notify provider to assess for uncontrolled pain or analgesic side effects. 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 prochlorperazine (COMPAZINE) injection 5 mg(Linked Group 5) 5 mg, Intravenous, EVERY 6 HOURS PRN, nausea, vomiting, Administer over 1-2 Minutes, Starting on Fri11/11/22 at 1119, This is Step 2 of nausea and vomiting management. If nausea not resolved in 15-30 minutes, Notify provider. prochlorperazine (COMPAZINE) tablet 5 mg(Linked Group 5) 5 mg, Oral, EVERY 6 HOURS PRN, nausea, vomiting, Starting on Fri11/11/22 at 1119, This is Step 2 of nausea and vomiting management. If nausea not resolved in 15-30 minutes, Notify provider. sodium chloride (PF) 0.9% PF flush 3 mL 3 mL, Intracatheter, EVERY 1 MIN PRN, line flush, other, to ensure patency or to lock dormant line, Starting on Fri11/11/22 at 1119 sodium chloride 0.9% (bag) irrigation (CANCELED) PRN, Starting on Fri11/11/22 at 0738, Intra-procedure 0738 ($Given - Provider: Bonnie Child MD) Linked Groups Order Group 1: HYDROmorphone (DILAUDID) injection 0.2 mgJump to med 0.2 mg, Intravenous, EVERY 2 HOURS PRN, moderate pain, Starting on Fri11/11/22 at 1119, IF patient unable to take oral pain medication or pain not controlled with oral analgesics. Hold IV PRN opioid dose for analgesic side effects. Notify provider to assess for uncontrolled pain or analgesic side effects. Or HYDROmorphone (DILAUDID) injection 0.4 mgJump to med 0.4 mg, Intravenous, EVERY 2 HOURS PRN, severe pain, Starting on Fri11/11/22 at 1119, IF patient unable to take oral pain medication or pain not controlled with oral analgesics. Hold IV PRN opioid dose for analgesic side effects. Notify provider to assess for uncontrolled pain or analgesic side effects. Group 2: naloxone (NARCAN) injection 0.2 mgJump to med 0.2 mg, Intravenous, EVERY 2 MIN PRN, opioid reversal, Starting on Fri11/11/22 at 1127, Administer intravenous route when available and notify provider when administered. For unintended sedation or respiratory depression if all of the below criteria are met: ~ respiratory rate LESS than or EQUAL to 8. ~SaO2 less than 92% and or/end-tidal CO2 is greater than 50. ~ the patient is receiving an opioid, has unintended sedations assessed as RASS (-3), and is currently not on mechanical ventilation. RASS scale moderate (-3) is movement or eye opening to voice but no eye contact. Patient Monitoring Once the patient has demonstrated a response to the naloxone, continue to monitor respiratory rate, depth, oxygen saturation and end-tidal CO2 (if available) every 15 minutes x 2, then every 30 minutes x 2, then every 1 hour x 1 after each naloxone dose. Consider transfer to ICU if patient respiratory parameters have not improved after 4 naloxone doses. Or naloxone (NARCAN) injection 0.4 mgJump to med 0.4 mg, Intravenous, EVERY 2 MIN PRN, opioid reversal, Starting on Fri11/11/22 at 1127, Administer intravenous route when available and notify provider when administered. For unintended sedation or respiratory depression if all of the below criteria are met: ~ respiratory rate LESS than or EQUAL to 8. ~ SaO2 less than 92% and or/end-tidal CO2 is greater than 50. ~ the patient is receiving an opioid, has unintended sedation assessed as RASS (-4) or (-5) and patient is currently not on mechanical ventilation. RASS scale (-4) is deep sedation with no response to voice but movement or eye opening to physical stimulation. RASS scale (-5) is unarousable. Patient Monitoring Once the patient has demonstrated a response to the naloxone, continue to monitor respiratory rate, depth, oxygen saturation and end-tidal CO2 (if available) every 15 minutes x 2, then every 30 minutes x 2, then every 1 hour x 1 after each naloxone dose. Consider transfer to ICU if patient respiratory parameters have not improved after 4 naloxone doses. Or naloxone (NARCAN) injection 0.2 mgJump to med 0.2 mg, Intramuscular, EVERY 2 MIN PRN, opioid reversal, Starting on Fri11/11/22 at 1127, Administer intramuscular if an intravenous route is not available and notify provider when administered. For unintended sedation or respiratory depression if all of the below criteria are met: ~ respiratory rate LESS than or EQUAL to 8. ~SaO2 less than 92% and or/end-tidal CO2 is greater than 50. ~ the patient is receiving an opioid, has unintended sedations assessed as RASS (-3), and is currently not on mechanical ventilation. RASS scale moderate (-3) is movement or eye opening to voice but no eye contact. Patient Monitoring Once the patient has demonstrated a response to the naloxone, continue to monitor respiratory rate, depth, oxygen saturation and end-tidal CO2 (if available) every 15 minutes x 2, then every 30 minutes x 2, then every 1 hour x 1 after each naloxone dose. Consider transfer to ICU if patient respiratory parameters have not improved after 4 naloxone doses. Or naloxone (NARCAN) injection 0.4 mgJump to med 0.4 mg, Intramuscular, EVERY 2 MIN PRN, opioid reversal, Starting on Fri11/11/22 at 1127, Administer intramuscular if an intravenous route is not available and notify provider when administered. For unintended sedation or respiratory depression if all of the below criteria are met: ~ respiratory rate LESS than or EQUAL to 8. ~ SaO2 less than 92% and or/end-tidal CO2 is greater than 50. ~ the patient is receiving an opioid, has unintended sedation assessed as RASS (-4) or (-5) and patient is currently not on mechanical ventilation. RASS scale (-4) is deep sedation with no response to voice but movement or eye opening to physical stimulation. RASS scale (-5) is unarousable. Patient Monitoring Once the patient has demonstrated a response to the naloxone, continue to monitor respiratory rate, depth, oxygen saturation and end-tidal CO2 (if available) every 15 minutes x 2, then every 30 minutes x 2, then every 1 hour x 1 after each naloxone dose. Consider transfer to ICU if patient respiratory parameters have not improved after 4 naloxone doses. Group 3: ondansetron (ZOFRAN ODT) ODT tab 4 mgJump to med 4 mg, Oral, EVERY 6 HOURS PRN, nausea, vomiting, Starting on Fri11/11/22 at 1119, This is Step 1 of nausea and vomiting management. If nausea not resolved in 15 minutes, go to Step 2 prochlorperazine (COMPAZINE). Do not push through foil backing. Peel back foil and gently remove. Place on tongue immediately. Administration with liquid unnecessary With dry hands, peel back foil backing and gently remove tablet. Do not push oral disintegrating tablet through foil backing. Administer immediately on tongue and oral disintegrating tablet dissolves in seconds, then swallow with saliva. Liquid not required. Or ondansetron (ZOFRAN) injection 4 mgJump to med 4 mg, Intravenous, EVERY 6 HOURS PRN, nausea, vomiting, Administer over 2-5 Minutes, Starting on Fri11/11/22 at 1119, This is Step 1 of nausea and vomiting management. If nausea not resolved in 15 minutes, go to Step 2 prochlorperazine (COMPAZINE). Irritant. Group 4: oxyCODONE (ROXICODONE) tablet 5 mgJump to med 5 mg, Oral, EVERY 4 HOURS PRN, moderate pain, Starting on Fri11/11/22 at 1119, Hold oral PRN dose for analgesic side effects. Notify provider to assess for uncontrolled pain or analgesic side effects. 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 Or oxyCODONE (ROXICODONE) tablet 10 mgJump to med 10 mg, Oral, EVERY 4 HOURS PRN, severe pain, Starting on Fri11/11/22 at 1119, Hold oral PRN dose for analgesic side effects. Notify provider to assess for uncontrolled pain or analgesic side effects. 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 Group 5: prochlorperazine (COMPAZINE) injection 5 mgJump to med 5 mg, Intravenous, EVERY 6 HOURS PRN, nausea, vomiting, Administer over 1-2 Minutes, Starting on Fri11/11/22 at 1119, This is Step 2 of nausea and vomiting management. If nausea not resolved in 15-30 minutes, Notify provider. Or prochlorperazine (COMPAZINE) tablet 5 mgJump to med 5 mg, Oral, EVERY 6 HOURS PRN, nausea, vomiting, Starting on Fri11/11/22 at 1119, This is Step 2 of nausea and vomiting management. If nausea not resolved in 15-30 minutes, Notify provider. documented in this encounter Care Teams Healthcare Economics Consultant Relationship Specialty Start Date End Date Adrien Hernandez MD [address] [place] [address] PCP - General 01/06/17 documented as of this encounter
--- OUTSIDE RECORDS SUMMARY | 2023-07-21 10:34 | XMS_ITS | Encounter Summary ---
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] Procedures MI REMOVAL IMPLANT, SUPERFICIAL MI REMOVAL DEEP IMPLANT MI ARTHRODESIS,ANKLE,OPEN MI FUSION FOOT BONES,SUBTALAR Right Removal Total Ankel Prosthesis and Tibiotalocalcaneal Fusion Per[facility] [address] [address] Referral ID Status Reason Start Date Expiration Date Visits Re quested Visits Authorized [id number] 1 1 Encounter Details Date Type Department Care Team (Late st Contact Info) Description 11/11/2022 7:20 AM CDT - 11/11/2022 8:10 AM CDT Surgery [facility] [address] [address] Bonnie Child MD [facility] [address] [place] [address] Right Removal Total Ankle Prosthesis Surgery Details Date/Time Status Location OR Service Patient Class Case Class Case Type Trauma Case? 11/11/22 7:20 AM Posted OR OR [facility] Same Day Surgery Panel 1 Procedure LRB Anes Op Region Wound Class Comments Right Removal Total Ankle Prosthesis Right General Ank le and Tibiotalocalcaneal Fusion Right General Ankle I-Clean Surgeon Surgeon Role Service Panel Bonnie Child MD Primary Orthopedics 1 Stan Cornelius PA-C Assisting Research Laboratory Specialist Laurent hopkins 1 Case Notes IMPLANTS REVIEWED Special Needs Out: Kimberly In: [place] T2 Daniel Large InfuseRIGHT LATERALITY CONFIRMED BY PATIENT documented in this encounter Social History Tobacco Use Types Packs/Day [...] Sign Reading Time Taken Comments Blood Pressure 127/83 11/11/2022 7:13 AM CDT Pulse 67 11/11/2022 7:13 AM CDT Temperature 36.6 ??C (97.8 ??F) 11/11/2022 6:09 AM CD T Respiratory Rate 12 11/11/2022 7:13 AM CDT Oxygen Saturation 97% 11/11/2022 7:13 AM CDT Inhaled Oxygen Concentration - - Weight 94.1 kg (207 lb 8 oz) 11/11/2022 6:09 AM CDT Height 182.9 cm (6') 11/11/2022 6:09 AM CDT Body Mass Index 28.14 11/11/2022 6:09 AM CDT documented in this encounter Discharge Instructions * Attachments The following attachments cannot be sent through Care Everywhere. * Ankle Replacement Surgery, Having (Guatemalan) * Ankle Surgery, Discharge Instructions for ([place]) documented in this encounter Medications at Time [...] increased dose prescribed after surgery 0 11/12/2022 xmjnqgl-lwnogjdpclkmw-r affeine (EXCEDRIN MIGRAINE) 250-250-65 MG tablet Take [...] results for input(s): INR in the last 11615 hours. Recent Labs Lab Test 06/13/17 1320 [...] analgesics: Yes Does patient have an identified community living coach: Yes Has goal D/C date and time been discussed with patient: Yes Pt is alert and oriented X 4, VSS on RA, PIV SL, regular diet. Pt is up with assist of one, dressing is CDI, CMS intact Pt weight bearing is toe touch. Discharge is 11/12/22 * Angel Vaughn - 11/08/2022 10:05 AM CDT CONSTRUCTION RIGGER medications updated by Medication Scribe prior to surgery via phone call with patient??(last doses completed by Nurse) Medication history sources: Patient, H&P and Patient's home med list In the past week, patient estimated taking medication this percent of the time: Greater than 90% Significant changes made to the medication list: Patient reports no longer taking the following meds (med scribe removed from CONSTRUCTION RIGGER med list): Apixaban, Hydroxyzine, Oxycodone, Pilocarpine Eye [...] Medication Sig Last Dose Taking? Auth Provider Batch Dumper End Date acetaminophen (TYLENOL) 500 MG tablet [...] mouth daily at am Yes Reported, Patient sdixnbb-tulldiigtfjxb-fopziwkx (EXCEDRIN MIGRAINE) 250-250-65 MG tablet Take 1 [...] Inject 140 mg Subcutaneous every 14 days 3at Unknown Yes Reported, Patient omeprazole (PRILOSEC) 40 [...] history completed by: Victorino Vaughn CPhT [facility] documented in this encounter H&P Notes * Ekta Sullivan - 11/11/2022 7:17 AM CDT I have [...] Notes * Plan of Care - Briseyda Desir, PT - 11/12/2022 11:08 AM CDT Physical Therapy Discharge Summary Reason for therapy discharge: All goals and outcomes met, no further needs identified. Progress towards therapy goal(s). See goals on Care Plan in Epic electronic health record for goal details. Goals met Therapy recommendation(s): No further therapy is recommended. * Plan of Care - Briseyda Desir, PT - 11/12/2022 10:09 AM CDT 11/12/22944 Appointment Info Signing Clinician's Name / Credentials (PT) Briseyda Desir DPT Living Environment People in Home spouse Current Living Arrangements house Transportation Anticipated family or friend will provide Living Environment Comments 6 stairs to navigate at NH has railing L side ascending. Self-Care Usual Activity Tolerance good Current Activity Tolerance moderate Equipment Currently Used at Home none Fall history within last six months no Activity/Exercise/Self-Care Comment Has knee scooter, crutches, able to assist General Information Onset of Illness/Injury or Date of Surgery 11/11/22 Referring Physician Stan Cornelius, KRYS Pertinent History of Current Problem (include personal [...] Evaluation Time PT Eval, Low Complexity Minutes (80774) 10 Plan of Care Review Plan of [...] dynamic activities to improve functional performance Minutes (55951) 7 Treatment Detail/Skilled Intervention Eval complete, treatment [...] of session pt left supine needs in [facility] Gait Training Gait Training Minutes (99375) 10 Treatment Detail/Skilled Intervention Pt ambulated with [...] and untimed services) 27 * Plan of Jocelyne - Miguelina Wan RN - 11/11/2022 10:20 PM CDT Summary: Right Removal Total Ankle Prosthesis and Tibiotalocalcaneal Fusion Date & Time: 1389-1670 5/8 Orientation: A&Ox4 POD#0 Activity Level: Assist of [...] replacement. 2. Tibiotalar calcaneal fusion using a [place] T2 intramedullary daniel with a femoral head allograft. ANESTHETIC: General. SURGEON: Bonnie Child MD WHAT JOB TITLES MEAN: Kris Cornelius PA-C PREAMBLE: Mr. Rubin previously had a revision ankle replacement done. He never did well. The talarcomponent subsided through the talus onto the calcaneus. He has increasing pain. Informed consent was obtained for above-mentioned procedure. NEED FOR AN WHAT JOB TITLES MEAN: A skilled first line production supervisor was necessary through all portions of the [...] mm diameter reamer. A 150 x 12 [employer] T2 daniel was then impacted in place. The calcaneal interlocking screw was first inserted that allowed for further compression across the femoral head as well as the tibia. The lateral talar screw was then inserted, followed by a medial tibial screw. Finally, the posterior 2 anterior calcaneal screws were inserted to lock the daniel in place. Excellent alignment and position was [...] in 2 weeks. Bonnie Child MD MT: cuca Name: CHENTE RUBIN Account: [id number] : 1945 Procedure Date: 11/11/2022 Document: [id number] * Provider Notification - Emily Pearce RN [...] and picture sent to MESSI Ponce via apple solutions consultant. Per Kris OK to proceed. Patient notified. documented in [...] 8:25 AM CDT FUSION, TIBIOTALOCALCANEAL, USING INTRAMEDULLARY DANIEL 11/11/2022 7:18 AM CDT Senile arthritis Case Notes IMPLANTS REVIEWED Special Needs Out: Kimberly In: [place] T2 Daniel Large InfuseRIGHT LATERALITY CONFIRMED BY PATIENT REMOVAL, HARDWARE, ANKLE 11/11/2022 7:18 AM CDT Senile arthritis Case Notes IMPLANTS REVIEWED Special Needs Out: Kimberly In: [place] T2 Daniel Large InfuseRIGHT LATERALITY CONFIRMED BY PATIENT documented in this encounter Results * (ABNORMAL) Hemoglobin (11/12/2022 6:35 AM CDT) Hemoglobin 12.8(L) 13.3 - 17.7 g/dL 11/12/2022 7:27 AM CDT LABORATORY Blood STRUCTURE OF RIGHT UPPER LIMB / Unknown Venipuncture / Unknown 11/12/2022 6:35 AM CDT 11/12/2022 7:22 AM CDT Stan Cornelius PA-C LAB - BLOOD ORDE RABLES LAB[facility]AT[facility] [address], [address] [place] [address], [place] [phone] * (ABNORMAL) Glucose by meter (11/12/2022 6:01 AM CDT) GLUCOSE BY METER POCT 117(H) 70 - 99 mg/dL 11/12/2022 6:08 AM CDT LABORATORY POC Blood, Capillary BLOOD SPECIMEN / Unknown 11/12/2022 6:01 AM CDT 11/12/2022 6:08 AM CDT Bonnie MONTEJO - BEAKER POCT LABORATORY POC [facility] [address], [address] [place] [address], [place] [phone] * (ABNORMAL) Glucose by meter (11/12/2022 1:49 AM CDT) GLUCOSE BY METER POCT 141(H) 70 - 99 mg/dL 11/12/2022 1:55 AM CDT LABORATORY POC Blood, Capillary BLOOD SPECIMEN / Unknown 11/12/2022 1:49 AM CDT 11/12/2022 1:55 AM CDT Bonnie MONTEJO - BEAKER POCT LABORATORY POC [facility] [address], [address] [place] [address], [place] [phone] * XR Surgery ZAK Fluoro Less Than 5 Min w Stills (11/11/2022 8:25 AM CDT) Anatomical Region Laterality Modality Abdomen/Pelvis Radio Fluoroscop y Impressions 11/11/2022 9:09 AM CDT IMPRESSION: Intraprocedural spot films demonstrate reported right total ankle arthroplasty removal and placement of tibiotalocalcaneal daniel and screw fixation. Please reference the surgical report for further details. CJ MCGRATH MD SYSTEM ID: [id number] Narrative 11/11/2022 9:09 AM CDT XR SURGERY [...] ankle arthroplasty removal and placement of tibiotalocalcaneal daniel and screw fixation. Please reference the surgical report for further details. CJ MCGRATH MD SYSTEM ID: [id number] Bonnie Child MD IMG DIAGNOSTIC CHELY GING ORDERABLES documented in this encounter Visit Diagnoses Diagnosis S/P ankle fusion- Primary Other postprocedural status Senile arthritis Osteoarthrosis, unspecified whether generalized or localized, unspecified site documented in this encounter Admitting Diagnoses Diagnosis [...] analgesic side effects. Hold while on IV BAGGAGE AND MAIL AGENT or with regular IV opioid dosing. oxyCODONE (ROXICODONE) tablet 5 mg 5 mg, Oral, EVERY 4 HOURS PRN, moderate pain, Starting on Fri11/11/22 at 1119, Hold oral PRN dose for analgesic side effects. Notify provider to assess for uncontrolled pain or analgesic side effects. Hold while on IV BAGGAGE AND MAIL AGENT or with regular IV opioid dosing. pantoprazole [...] 10:48 PM CDT 3 mLs sodium chloride 0.9% (bag) irrigation PRN, Starting on Fri11/11/22 at 0738, Intra-procedure $Given 11/11/2022 7:38 AM CDT 1,000 mLs Operative Site/Surgi ondina Site sotalol (BETAPACE) half-tab 40 mg 40 mg, [...] Provider: Bran Dennis RN)2201 ($Given - Provider: Miguelnia Wan RN) 0546 ($Given - Provider: Katelynn [...] Bran Dennis RN)2202 ($Given - Provider: Miguelina Wan, ISELA) 0835 ($Given - Provider: Stoney Choe RN) [...] 0718 ($Given - Provider: Serena Ford APRN ASSISTANT COMMUNITY DIRECTOR) clopidogrel (PLAVIX) tablet 75 mg 75 mg, [...] 2202 ($Given - Provider: Miguelina Wan, ISELA) 0835 ($Given - Provider: Stoney Choe, ISELA) polyethylene glycol (MIRALAX) Packet 17 g 17 [...] clean out. 0945 ($Given - Provider: Stoney Choe, ISELA) senna-docusate (SENOKOT-S/PERICOLACE) 8.6-50 MG per tablet 1 tablet 1 tablet, Oral, 2 TIMES DAILY, First dose on Fri11/11/22 at 1130, To prevent constipation. Hold for loose stools Hold for loose stools. 1218 (Not Given - Provider: Bran Dennis RN - Reason: Patient/family refused)2202 ($Given - Provider: Miguelina Wan RN) 0835 ($Given - Provider: Stoney Choe, ISELA) sodium chloride (PF) 0.9% PF flush [...] 2202 ($Given - Provider: Miguelina Wan RN) 0945 ($Given - Provider: Stoney Choe RN) [...] 75 mg/kg/day not to exceed 4 grams/day. dbjaegu-skvyclqpzzyxd-lgqtaerq (EXCEDRIN MIGRAINE) per tablet 1 tablet 1 [...] analgesic side effects. Hold while on IV BAGGAGE AND MAIL AGENT or with regular IV opioid dosing. oxyCODONE (ROXICODONE) tablet 5 mg(Linked Group 4) 5 mg, Oral, EVERY 4 HOURS PRN, moderate pain, Starting on Fri11/11/22 at 1119, Hold oral PRN dose for analgesic side effects. Notify provider to assess for uncontrolled pain or analgesic side effects. Hold while on IV BAGGAGE AND MAIL AGENT or with regular IV opioid dosing. prochlorperazine [...] analgesic side effects. Hold while on IV BAGGAGE AND MAIL AGENT or with regular IV opioid dosing. Or oxyCODONE (ROXICODONE) tablet 10 mgJump to med 10 mg, Oral, EVERY 4 HOURS PRN, severe pain, Starting on Fri11/11/22 at 1119, Hold oral PRN dose for analgesic side effects. Notify provider to assess for uncontrolled pain or analgesic side effects. Hold while on IV BAGGAGE AND MAIL AGENT or with regular IV opioid dosing. Group [...] provider. documented in this encounter Care Teams Gizzard Peeler Relationship Specialty Start Date End Date Adrien Hernandez MD [address] [place] [address] PCP - General 01/06/17 documented as of this encounter
--- OUTSIDE RECORDS SUMMARY | 2023-07-21 10:34 | XMS_ITS | Encounter Summary ---
Author Name Unknown Organization [facility] Address [address] [place] [address]. [place] [address] Care Team Providers Care Certified Technician Name Role Phone Adrien Hernandez MD Primary Care Provider [phone] Encounter Details Date Type Department Care Team (Late st Contact Info) Description 10/08/[address] [facility] [address] [place] [id number] Outside, Provider Social History Tobacco Use Types Packs/Day Years [...] AM CDT documented as of this encounter Plan of Treatment Not on file documented as of this encounter Visit Diagnoses Not on filedocumented in this encounter Care Teams Certified Technician Relationship Specialty Start Date End Date Adrien Hernandez MD [address] [facility] [place] [address] PCP - General 01/06/17 documented as of this encounter
--- OUTSIDE RECORDS SUMMARY | 2023-07-21 10:34 | XMS_ITS | Clinical Summary ---
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 Lisinopril Cough 11/09/2015 Naproxen Rash Medications Medication Sig Dispensed Refills Start Date End Date Status acetaminophen (TYLENOL EXTRA STRENGTH) 500 mg tablet Take 1 tablet by mouth every 6 hours if needed. Max acetaminophen dose: 4000mg in 24 hrs. 0 12/08/2017 Active aspirin-acetaminoph en-caffeine, 250-250-65 mg, (EXCEDRIN) 250-250-65 mg tablet Take 1 tablet by mouth every 6 hours if needed for Headache. Max acetaminophen dose: 4000mg in 24 hrs. 0 06/23/2019 Active betamethasone, augmented dipropianate 0.05% (DIPROLENE AF) 0.05 % cream 0 06/12/2020 Active artificial tears, peg 400-propylene glycol, (Systane Hydration PF) 0.4-0.3 % ophthalmic dropperette Place 1-2 Drops into both eyes. 0 Active eszopiclone (Lunesta) 1 mg tabletIndications:I nsomnia, idiopathic Take 1 Tablet (1 mg) by mouth at bedtime. 0 09/17/2021 Active diclofenac topical (VOLTAREN) 1 % gelIndications:Hand pain, left Apply 2 g topically to affected area(s) 4 times daily. 100 g 0 12/07/2021 Active Xyosted 75 mg/0.5 mL atInIndications:Low testosterone INJECT 75MG SUBCUTANEOUS WEEKLY 12 mL 0 03/07/2022 Active evolocumab (Repatha SureClick) 140 mg/mL subcutaneous pen injectorIndications :Hyperlipidemia, unspecified hyperlipidemia type Inject 1 mL (140 mg) subcutaneous every 2 weeks. Inject into abdomen, thigh, or upper arm; rotate injection sites. 6 mL 3 09/09/2022 Active aspirin (ECOTRIN) 81 mg enteric coated tabletIndications:P resence of Watchman left atrial appendage closure device Take 1 Tablet (81 mg) by mouth once daily with a meal. 0 09/12/2022 Active amoxicillin (AMOXIL) 500 mg capsuleIndications: Presence of Watchman left atrial appendage closure device Take 4 capsules (2000mg) by mouth one time 30-60min prior to dental work. 12 Capsule 0 10/14/2022 Active omeprazole (PRILOSEC) 40 mg Delayed-Release capsuleIndications: Gastric reflux TAKE 1 CAPSULE(40 MG) BY MOUTH EVERY DAY BEFORE A MEAL 90 Capsule 3 04/07/2023 Active amLODIPine (NORVASC) 5 mg tabletIndications:C hronic atrial fibrillation (HC),HTN (hypertension) Take 1 Tablet (5 mg) by mouth once daily. 180 Tablet 3 04/14/2023 Active celecoxib (CELEBREX) 100 mg capsuleIndications: Polyarthralgia Take 1 Capsule (100 mg) by mouth 2 times daily if needed for Pain. 180 Capsule 3 04/14/2023 Active sotaloL (BETAPACE) 80 mg tabletIndications:P aroxysmal atrial fibrillation (HC) Take 0.5 Tablets (40 mg) by mouth every 12 hours. NEEDS OFFICE VISIT FOR FURTHER REFILLS. CALL TO SCHEDULE. 90 Tablet 0 05/19/2023 Active Active Problems Patient Care Coordination No te Formatting of this note migh t be different from the original. HF/Structural/Prevention Research Eligibility Review Date: 06/22/19 Upcoming Visit Location: [facility] Age: 74 y.o. Insurance: Medicare EF: 74 LVID: Valve/Imaging: Mild MR, trace TR, mild /no AR Cardiac Devices: Comments: HF: DNQ Structural: Tendyne Garrison: No d/t mild MR Prevention: DNQ Problem Noted Date Diagnosed Date Osteoarthritis of right shoulder 10/21/2022 10/21/2022 Sensorineural hearing loss (SNHL) of both ears 0 10/16/2022 Aortic dilatation 08/16/2022 Myopia with presbyopia of left eye 06/20/2022 10/21/2022 Overview: Last Assessment & Plan: Refractive Error/Presbyopia - The results of the refraction were discussed with the patient and a new prescription for bifocal/progressive spectacles was dispensed Pseudophakia, left eye 05/29/2022 Overview: Last Assessment & Plan: - 3 months s/p CE IOL of the??left??eye on 05/21/2022. - At one month post-op appointment had steroid response with IOP elevated to 28 in the left eye. Pred Forte was discontinued. - Today, IOP back within normal limits at 18. No need to start IOP lowering agent. - PCIOL in good position and clear. AC quiet. - Monitor Osteopenia 04/11/2019 Overview: On DEXA 04/2019 Nonrheumatic aortic valve stenosis 08/07/2018 Sarcoidosis, lung 07/29/2017 Overview: Recently diagnosed at [facility] Paroxysmal atrial fibrillation 04/10/2017 Thoracic aortic aneurysm without rupture 017 Overview: 4.7 cm on echo 01/2020; CT recommended 01/2021 S/P ankle joint replacement 02/03/2017 Pulmonary nodules/lesions, multiple 01/03/2017 Chronic systolic CHF (congestive heart failure) 10/25/2014 Prostate cancer 08/23/2014 LVH (left ventricular hypertrophy) 05/16/2014 ED (erectile dysfunction) 11/25/2013 Adenomatous colon polyp 09/24/2013 Overview: Colonoscopy 09/2013 polyp repeat in 5 years Colonoscopy 07/2018 multiple polyps, repeat in 3 years Colonoscopy 12/2020 polyp, repeat in 5 years HTN (hypertension) 12/28/2012 Low testosterone 06/18/2012 Dry eye syndrome 03/28/2009 Overview: Bilateral; uses drops daily Mixed hyperlipidemia 11/18/2006 Insomnia Congenital spondylolysis, lumbosacral region Resolved Problems Problem Noted Date Diagnosed Date Resolved Date Bruising 06/23/2019 01/13/2020 Elevated sed rate 01/03/2017 02/25/2017 Headache syndrome 01/03/2017 02/25/2017 JESU (obstructive sleep apnea) 10/25/2014 07/16/2021 Mitral regurgitation 05/20/2014 017 DJD (degenerative joint disease) of knee 07/28/2013 02/25/2017 Prostatic enlargement 06/11/20122014 Prediabetes 12/05/2011 02/25/2017 Routine general medical exam ination at a health care facility 11/09/2008 12/05/2009 Overview: Colonoscopy 07/2008 Recheck 5 yrs Diverticulitis of colon (wit hout mention of hemorrhage) 02/23/2008 07/16/2021 Overview: 1 episode January 2008 ANKLE degeneration 09/01/2007 2 ANXIETY DISORDER 02/25/2017 Encounters Date Type Department Care Team Description 07/17/2023 1:00 PM [employer] CONCRETE PRODUCTS INSTALLER Office Visit [facility] [address] [place] [address] Jerome Herrera, Mona Hearing Aid 07/17/2023 Travel 07/08/2023 10:05 AM [employer] CONCR[employer] PRODU[employer] INSTALLER Preop Visit [facility] [address] [place] [address] Adrien Hernandez MD Preoperative Exam (Left knee replacement at [facility] on 07/21/23 Dr. Dee) 07/08/2023 Travel 06/18/2023 3:30 PM [employer] CON[employer] PRODU[employer] INSTALLER Office Visit [facility] [address] [place] [address] Jerome Herrera AuD Hearing Problem 06/18/2023 Travel 06/11/2023 11:00 AM [employer] CONCR[employer] PRODU[employer] INSTALLER Office Visit [facility] [address] [place] [address] Jerome Herrera, AuD Hearing Aid 06/11/2023 Telephone [facility] [address] [place] [address] Adrien Hernandez MD Referral (Audiological Evaluation) 06/11/2023 Travel 05/26/2023 3:00 PM [employer] CONCRETE PRODU[employer] INSTALLER Office Visit [facility] [address] [place] [address] Jerome Herrera, AuD Hearing Aid 05/26/2023 10:30 AM [employer] CONCRET[employer] PRODUCTS INSTALLER Office Visit [place] [id number] [facility] [address] [place] [address] Koby Gaines MD CV General Cardiology Est (VALVE EST:F/U, ECHO PRIOR, HJK) 05/26/2023 Travel 05/21/2023 Telephone [facility] [address] [place] [address] Jerome Herrera, AuD Hearing Aid 05/19/2023 11:00 AM [employer] CON[employer] PRODU[employer] INSTALLER Ancillary Procedure [facility] [address] [place] [address] 05/19/2023 Telephone [facility] [address] [facility] [address] [place] [address] Ti Goodman MD Refill Request 05/19/2023 Travel 05/19/2023 Nurse Triage [facility] [address] [place] [address] Adrien Hernandez MD Toe Pain/problem (Post surgery) 05/12/2023 Orders Only [facility] [address] [place] [address] Adrien Hernandez MD Outside Order (Ordered by Dr. Koby Batista) 05/08/2023 2:00 PM CDT Office Visit [facility] [address] [place] [address] Jerome Herrera, AuD Hearing Aid 05/08/2023 11:30 AM CDT Office Visit [facility] [address] [place] [address] Jerome Herrera, AuD Hearing Aid 05/08/2023 Travel 05/05/2023 9:30 AM CDT Office Visit [facility] [address] [place] [address] Jerome Herrera, AuD Hearing Aid 05/05/2023 Travel 04/29/2023 10:00 AM CDT Orders Only [facility] [address] [place] [address] Lab, [place] Lab 04/29/2023 9:30 AM CDT Ancillary Procedure [facility] [address] [address] 04/29/2023 Travel 04/22/[address] [place] [address] Shawna Wakefield, FIELD ADMINISTRATIVE ASSISTANT Appointment 04/21/2023 Telephone [facility] [address] [place] [place] [address] Adrien Hernandez MD Follow Up from Last 3 Months Immunizations Name Administration Dates Next Due AMB INFLUENZA IIV3 (AGE 65+ YRS) PF (Flu Clinic Only) 04/13/2018 AMB Influenza, IIV3 (Age >=3 years)(Flu Clinic Only) 05/24/2008 COVID-19 vaccine (Pfizer-Bio NTech 30mcg/0.3mL) 12YO+ BIVALENT PF, MDV 05/16/2022 COVID-19 vaccine (Pfizer-Bio NTech 30mcg/0.3mL) 12YO+ NILES-SUCROSE PF, MDV 12/07/2021 COVID-19 vaccine (Pfizer-Bio NTech 30mcg/0.3mL) PF, MDV 10/04/2020,09/13/2020 HepA-HepB (Twinrix) 09/13/2011,08/30/2011,2011 Hepatitis A (Adult) 07/29/2017 Influenza, High-dose Inactivated 04/13/2018,04/06,04/24/2015 Influenza, IIV3 (Age >=3 years) 06/11/20 12,04/17/2010,03/28/2009,2007,06/01/2007,06/13/2006,05/07/2006,1 07/23/2002 Influenza, Inactivated AIIV4 (Age 65+ Years) Preserv Free 04/14/2023,05/16/2022,05/14/2021,2019 Influenza, Inactivated IIV3 (Age 65+ Years) Preserv Free 03/26/2019,04/10/2017 Pneumococcal Poly,23-Valent (Pneumovax) 06/11/2012 Pneumococcal conj 13-Valent (Prevnar 13) 06/26/2015 Td (Age >=7 Years) 10/31/2006,07/07/2005 Tdap 01/16/2020,02/19/2013,10/31/2006 Typhoid (injectable) 07/29/2017 Yellow Fever 08/23/2011 Zoster (Shingrix-RZV, recombinant) 08/03/2019, Zoster (Zostavax-ZVL, live) 08/02/2008 Family History Medical History Relation Name Comments Heart Disease Father from AAA Heart Disease Mother CHF Osteoporosis Mother Alcohol/Drug Other strong family hx chemical dependency Anesthesia Problem No Family History Blood Disease No Family History Relation Name Status Comments Father Mother Other Social History Tobacco Use Types Packs/Day Years Used Date Smoking Tobacco: Never Smokeless Tobacco: Never Tobacco Cessation:Counseling Given: Yes Alcohol Use Standard Drinks/Week Comments No 0 (1 standard drink = 0.6 oz pur e alcohol) PHQ-2 Answer Date Recorded PHQ-2 TOTAL SCORE 0 04/14/2023 Social Connections Answer Date Recorded Frequency of Communication with Friends and Fami ly 0 04/14/2023 Financial Resource Strain Answer Date R ecorded Difficulty of Paying Living Expenses 3 04/14/2023 Difficulty of Paying Living Expenses Not on file 04/14/2023 Food Insecurity Answer Date Recorded Worried About Running Out of Food in the Last Ye ar 1 04/14/2023 Transportation Needs Answer Date Record ed Lack of Transportation (Medical) 1 04/14/2023 Housing Stability Answer Date Recorded Unable to Pay for Housing in the Last Year 1 04/14/2023 Sex and Gender Information Value Date Recorded Sex Assigned at Not on file Gender Identity Not on file Sexual Orientation Not on file Obstetrics History Last Filed Vital Signs Vital Sign Reading Time Taken Comments Blood Pressure 134/84 07/08/2023 10:04 AM [employer] INSTALLER Pulse 74 07/08/2023 10:04 AM [employer] INSTALLER Temperature 36.4 ??C (97.6 ??F) 10/21/2022 10:31 AM C DT Respiratory Rate 17 09/12/2022 6:00 AM [employer] CONCR[employer]E [employer]ODU[employer] INSTALLER Oxygen Saturation 98% 07/08/2023 10:04 AM [employer]ODU[employer] INSTALLER Inhaled Oxygen Concentration - - Weight 95.1 kg (209 lb 9.6 oz) 07/08/2023 10:04 AM [employer] CONCR[employer]E [employer]ODU[employer] INSTALLER Height 176.2 cm (5' 9.37) 05/26/2023 10:[address] Body Mass Index 30.62 05/26/2023 10:30 AM [employer]ODU[employer] INSTALLER Plan of Treatment Upcoming Encounters Date Type Department Care Team (Late st Contact Info) Description 08/25/2023 7:30 AM [employer] CONCR[employer]E PRODUCTS INSTALLER Orders Only [facility] [address] [place] [address] [place] 09/02/2023 9:30 AM [employer] CONCR[employer]ODU[employer] INSTALLER Office Visit [facility] [address] [place] [address] Maranda Mejias MD [address] [place] [address] Health Maintenance Due Date Last Done Comments COVID-19 vaccine series (2022- season) 2023 05/16/2022, 12/07/2021, 05/07/2021, Additional history exists Medicare Wellness for age 65+ 04/13/2024, 07/16/2021, 05/01/2020, Additional history exists Depression screening for age 12+ 04/18/2024 04/18/2023, 2023, 04/14/2023, Additional history exists BMI (ht and wt on same day) for age 18+ 05/26/2024 05/26/2023, 04/14/2023, 10/29/2022, Additional history exists Tetanus booster 01/15/2030 01/16/2020, 02/04, 10/31/2006, Additional history exists Fecal testing non-DNA (FIT,FOBT,iFOBT) for age 45-75 Discontinued 12/06/2011 Hepatitis C screening for ag e 18-79 Completed 05/02/2015 Pneumococcal series for age 65+ Completed 06/26/2015, 06/26/2015, 06/11/2012 Zoster (shingles) series for age 50+ Completed 08/03/2019, 05/24/2019, 08/02/2008 Tdap Completed 01/16/2020, 02/04, 10/31/2006 Influenza for age 65+ Completed 04/14/2023 , 05/16/2022, 05/14/2021, Additional history exists Medical Devices Implanted Type Area Solar Energy Specialist Device Identifier Shelf Expiration Date Model / Serial / Lot Amnio Fix 2.0x12.0cm Implanted:Qty: 1 on 10/25/2014 at [facility] AU-5212 / / [id number] Description:AMNIO FIX 2.0X12 .0CM Procedures Procedure Name Priority Date/Time Associated Diagnosis Comments HEMOGLOBIN Routine 07/08/2023 10:58 AM [employer] INSTALLER Paroxysmal atrial fibrillation (HC) ECHO TTE COMPLETE WO CONTRAST Routine 05/19/2023 12:11 PM [employer] INSTALLER Aortic valve stenosis, etiology of cardiac valve disease unspecified CT CHEST W Routine 04/29/2023 10:01 AM CDT Night sweats CREATININE,ISTAT Routine 04/29/2023 9:44 AM CDT Night sweats Observation or evaluation for suspected condition from Last 3 Months Results * HEMOGLOBIN (07/08/2023 10:58 AM [employer] CONCR[employer]ODU[employer] INSTALLER) HEMOGLOBIN 15.5 13.5 - 17.5 g/dL 07/08/2023 11:01 AM [employer]CAST CONCRETE PRODUCTS INSTALLER [facility] MCV 96 80 - 100 fL 07/08/2023 11:01 AM [employer] CONCRETE PRODUCTS INSTALLER [facility] Blood BLOOD SPECIMEN / Unknown Venipuncture / Unknown 07/08/2023 10:58 AM [employer] CON[employer]ODU[employer] INSTALLER 07/08/2023 10:58 AM [employer] CON[employer]ODU[employer] INSTALLER Adrien Hernandez MD HEMATOLOGY [facility] [place] [address], * ECHO TTE COMPLETE WO CONTRAST (05/19/2023 12:11 PM [employer] CONCR[employer]E [employer]ODUCTS INSTALLER) AORTIC VALVE MEAN PG 25 mmHg EJECTION FRACTION 69 % PEAK TR VELOCITY 2.6 m/s LVEDD 4.6 cm Anatomical Region Laterality Modality Ultrasound 05/19/2023 11:2 5 AM [employer] CON[employer]ODU[employer] INSTALLER Narrative 05/19/2023 4:50 PM [employer] CONCR[employer]E [employer]ODUCTS INSTALLER ECHOCARDIOGRAM CHENTE RICH ?Accession#: ?? [id number] : ?1945 78 years Study Date: ?? 05/19/2023 11:25:47 AM Gender: M ? BP: ? 130/85 mmHg Height: 175.00 cm ? BSA: ?2.06 m? ? ? Weight: 90.00 kg ?Tech: ? MTS ?Referring MD: KOBY GAINES Site: ? [facility] Reading Location: MOBILE OP Patient Location: Outpatient. Procedure: 2D, Color Doppler and Spectral Doppler. Indication for study: Aortic valve stenosis, etiology of cardiac valve disease unspecified Cardiac Rhythm: Regular.Study quality: Technically limited. Final Impressions: 1. Technically limited exam. 2. The aortic valve is trileaflet and sclerotic, moderate stenosis and trivial regurgitation. The aortic valve peak velocity is 3.2 m/s, the peak gradient is 41 mmHg, and the mean gradient is 25 mmHg. The aortic valve area is 1.36 cm? ? ? with a dimensionless index of 0.32. The stroke volume index is 50.0 ml/m? ? ?. 3. Normal left ventricular size, moderately increased wall thickness, normal global systolic function, calculated EF of 69 %. 4. Right ventricular cavity size is normal, global systolic RV function is normal. 5. Mildly enlarged left atrium. 6. The ascending aorta is dilated with a maximal diameter of 4.5 cm. Chamber Sizes and Function Normal left ventricular size, moderately increased wall thickness, normal global systolic function, calculated EF of 69 %. Left atrial size is mildly enlarged. Right ventricular cavity size is normal, global systolic RV function is normal. RV wall thickness is normal. The right atrium is normal. Right atrial volume index is 33 ml/m? ? ?. Right atrial area is 20 cm? ? ?. The pulmonary artery is of normal size and origin. The sinus of Valsalva is normal sized. The ascending aorta is dilated. Valves, RV Pressures and Diastolic Function The aortic valve is trileaflet and sclerotic, moderate stenosis and trivial regurgitation. The mitral valve is normal in structure, trace mitral regurgitation. Indeterminate pattern of LV diastolic filling. The tricuspid valve is normal in structure. Tricuspid regurgitation is mild regurgitation. The tricuspid regurgitant velocity is 2.6 m/s, the estimated right ventricular systolic pressure is 27 mmHg plus right atrial pressure. The pulmonic valve is normal. Trace pulmonary regurgitation. Masses, Effusion, Shunts There is no pericardial effusion. The inferior vena cava is normal sized, respiratory size variation greater than 50%. Interatrial septum is not well visualized. MEASUREMENTS AND CALCULATIONS 2-D Measurements and LV Function: LVID (d) 4.6 cm Planimetered EF 69 % LVID (s) 2.7 cm LV FS% (2D) ? 41 % IVS (d) ??1.5 cm LVOT diameter ?? 2.3 cm LVPW (d) 1.3 cm HR ?65 bpm Ao Sinus 3.4 cm LA Vol index ?43 ml/m2 Asc Ao ?? 4.5 cm RA Vol index ?33 ml/m2 Trans Ao 3.6 cm RA area ? 20 cm? ? ? LA ? 4.0 cm RV Max 4C (d) ?? 3.8 cm Diastology: Mitral ?Tissue Doppler ?Pulmonary veins E Peak 0.7 m/s ??e', Septum ? 0.05 m/s Pulm s ?27.6 cm/s A Peak 0.4 m/s ??e', Lateral ?0.08 m/s Pulm d ?52.6 cm/s E/A ?2.0 ?E/e' Average ?? 11.35 ?Pulm s/d ratio ??0.52 DT ? 206 msec Aortic Valve: Vmax ? 3.2 m/s ??HOLGER (V) ?? 1.39 cm? AI P 1/2 626 msec VTI ?0.76 m ?? HOLGER (I) ?? 1.36 cm? ? ? LVOT V max 1.0 m/s ??Max PG ?41 mmHg LVOT VTI ?? 0.24 m ?? Mean PG ?? 25 mmHg SV ? 103 ml ?? Dim Index 0.32 SV index ?? 50 ml/m? ? ? CO ?6.7 l/min ?CI ?3.2 l/min/m? ? ? Mitral Valve: MVA ?3.7 cm? ? ? MV P 1/2 60 msec Tricuspid Valve and estimated PA pressures: TR Vmax 2.6 m/s TAPSE 2.3 cm TR maxG 27 mmHg . This study was interpreted by an [facility] accredited facility. ??Final ?? Procedure Note Darwin Vo MD - 05/19/2023 ECHOCARDIOGRAM CHENTE RICH : 1945 78 years Study Date: 05/19/2023 11:25:47 AM Gender: M BP: 130/85 mmHg Height: 175.00 cm BSA: 2.06 m? ? ? Weight: 90.00 kg Tech: [facility] Referring MD: KOBY GAINES Site: [facility] Reading Location: MOBILE OP Patient Location: Outpatient. Procedure: 2D, Color Doppler and Spectral Doppler. Indication for study: Aortic valve stenosis, etiology of cardiac valvedisease unspecified Cardiac Rhythm: Regular.Study quality: Technically limited. Final Impressions: 1. Technically limited exam. 2. The aortic valve is trileaflet and sclerotic, moderate stenosis andtrivial regurgitation. The aortic valve peak velocity is 3.2 m/s, the peakgradient is 41 mmHg, and the mean gradient is 25 mmHg. The aortic valvearea is 1.36 cm? ? ? with a dimensionless index of 0.32. The stroke volumeindex is 50.0 ml/m? ? ?. 3. Normal left ventricular size, moderately increased wall thickness,normal global systolic function, calculated EF of 69 %. 4. Right ventricular cavity size is normal, global systolic RV functionis normal. 5. Mildly enlarged left atrium. 6. The ascending aorta is dilated with a maximal diameter of 4.5 cm. Chamber Sizes and Function Normal left ventricular size, moderately increased wall thickness, normalglobal systolic function, calculated EF of 69 %. Left atrial size ismildly enlarged. Right ventricular cavity size is normal, global systolicRV function is normal. RV wall thickness is normal. The right atrium isnormal. Right atrial volume index is 33 ml/m? ? ?. Right atrial area is 20cm? ? ?. The pulmonary artery is of normal size and origin. The sinus ofValsalva is normal sized. The ascending aorta is dilated. Valves, RV Pressures and Diastolic Function The aortic valve is trileaflet and sclerotic, moderate stenosis andtrivial regurgitation. The mitral valve is normal in structure, tracemitral regurgitation. Indeterminate pattern of LV diastolic filling. Thetricuspid valve is normal in structure. Tricuspid regurgitation is mildregurgitation. The tricuspid regurgitant velocity is 2.6 m/s, theestimated right ventricular systolic pressure is 27 mmHg plus right atrialpressure. The pulmonic valve is normal. Trace pulmonary regurgitation. Masses, Effusion, Shunts There is no pericardial effusion. The inferior vena cava is normal sized,respiratory size variation greater than 50%. Interatrial septum is notwell visualized. MEASUREMENTS AND CALCULATIONS 2-D Measurements and LV Function: LVID (d) 4.6 cm Planimetered EF 69 % LVID (s) 2.7 cm LV FS% (2D) 41 % IVS (d) 1.5 cm LVOT diameter 2.3 cm LVPW (d) 1.3 cm HR 65 bpm Ao Sinus 3.4 cm LA Vol index 43 ml/m2 Asc Ao 4.5 cm RA Vol index 33 ml/m2 Trans Ao 3.6 cm RA area 20 cm? ? ? LA 4.0 cm RV Max 4C (d) 3.8 cm Diastology: Mitral Tissue Doppler Pulmonary veins E Peak 0.7 m/s e', Septum 0.05 m/s Pulm s 27.6 cm/s A Peak 0.4 m/s e', Lateral 0.08 m/s Pulm d 52.6 cm/s E/A 2.0 E/e' Average 11.35 Pulm s/d ratio 0.52 DT 206 msec Aortic Valve: Vmax 3.2 m/s HOLGER (V) 1.39 cm? ? ? AI P 1/2 626 msec VTI 0.76 m HOLGER (I) 1.36 cm? ? ? LVOT V max 1.0 m/s Max PG 41 mmHg LVOT VTI 0.24 m Mean PG 25 mmHg SV 103 ml Dim Index 0.32 SV index 50 ml/m? ? ? CO 6.7 l/min CI 3.2 l/min/m? ? ? Mitral Valve: MVA 3.7 cm? ? ? MV P 1/2 60 msec Tricuspid Valve and estimated PA pressures: TR Vmax 2.6 m/s TAPSE 2.3 cm TR maxG 27 mmHg . This study was interpreted by an [facility] accredited facility. Final Koby Gaines MD ECHO ORD * CT CHEST W (04/29/2023 10:01 AM CDT) Anatomical Region Laterality Modality CHEST, THORAX, HEART Computed To mography 04/29/2023 3:32 PM CDT Narrative 04/29/2023 3:32 PM CDT For Patients: ??As a result of the Cures Act, medical imaging exams and procedure reports are released immediately into your electronic medical record. ??You may view this report before your referring provider. ??If you have questions, please contact your health care provider. Indication: Night sweats Technique: Postcontrast CT chest. 100 cc Omnipaque 350 intravenous contrast. Please note that all CT scans at this facility use dose modulation, iterative reconstruction, and/or weight-based dosing when appropriate to reduce radiation dose to as low as reasonably achievable. Comparison: 05/15/2021, 10/29/2022 Findings: No pulmonary embolism is present. Watchman device is stable in position. Left atrial appendage opacification is no longer visualized. No pericardial effusion. Atherosclerotic changes are present. The ascending aorta measures up to 4.6 cm. Small hiatal hernia noted. Spleen not enlarged. No adrenal nodule. No calcified gallstones. Subcentimeter mediastinal lymph nodes are present measuring up to 8 millimeters. No suspicious thyroid nodule. No enlarged hilar lymph nodes. Normal bilateral axillary lymph nodes. No vertebral body compression fracture. No infiltrate or edema. No effusion or pneumothorax. Mild atelectasis within the right lower lobe. Impression: Interval endothelialization of the left atrial appendage is suggested (a normal finding). No enlarged intrathoracic lymph nodes. Clear lungs without airspace disease or pulmonary fibrosis. Atherosclerotic changes with 4.6 cm aneurysm of the ascending aorta. Small hiatal hernia. Please note that all CT scans at this facility use dose modulation, iterative reconstruction, and/or weight-based dosing when appropriate to reduce radiation dose to as low as reasonably achievable. Dictated by Paras Rodriguez MD @ Apr 29 2023 ??3:32PM (Electronically Signed) ?? Procedure Note Paras Rodriguez MD - 04/29/2023 For Patients: As a result of the 21st Century Cures Act, medical imagingexams and procedure reports are released immediately into your electronicmedical record. You may view this report before your referring provider.If you have questions, please contact your health care provider. Indication: Night sweats Technique: Postcontrast CT chest. 100 cc Omnipaque 350 intravenous contrast. Please note that all CT scans at this facility use dose modulation,iterative reconstruction, and/or weight-based dosing when appropriate toreduce radiation dose to as low as reasonably achievable. Comparison: 05/15/2021, 10/29/2022 Findings: No pulmonary embolism is present. Watchman device is stable in position.Left atrial appendage opacification is no longer visualized. Nopericardial effusion. Atherosclerotic changes are present. The ascendingaorta measures up to 4.6 cm. Small hiatal hernia noted. Spleen notenlarged. No adrenal nodule. No calcified gallstones. Subcentimetermediastinal lymph nodes are present measuring up to 8 millimeters. Nosuspicious thyroid nodule. No enlarged hilar lymph nodes. Normal bilateralaxillary lymph nodes. No vertebral body compression fracture. Noinfiltrate or edema. No effusion or pneumothorax. Mild atelectasis withinthe right lower lobe. Impression: Interval endothelialization of the left atrial appendage is suggested (anormal finding). No enlarged intrathoracic lymph nodes. Clear lungs without airspace disease or pulmonary fibrosis. Atherosclerotic changes with 4.6 cm aneurysm of the ascending aorta. Small hiatal hernia. Please note that all CT scans at this facility use dose modulation,iterative reconstruction, and/or weight-based dosing when appropriate toreduce radiation dose to as low as reasonably achievable. Dictated by Paras Rodriguez MD @ Apr 29 2023 3:32PM (Electronically Signed) Adrien Hernandez MD CT * (ABNORMAL) CREATININE,ISTAT (04/29/2023 9:44 AM CDT) CREATININE, POCT 1.10 0.57 - 1.11 mg/dL 04/29/2023 9:46 AM CDT [facility] Comment:Caution: Patients ta champ Hydroxyurea have falsely increased iStat Creatinine results. Verify creatinine results ordering a Creatinine (57289.2) eGFR 70(L) >90 mL/min/1.7 3m2 04/29/2023 9:46 AM CDT [facility] Comment:As of 2021, eG FR is calculated by the CKD-EPI creatinine equation without race adjustment. eGFR can be influenced by muscle mass, exercise, and diet. The reported eGFR is an estimation only and is only applicable if the renal function is stable. Blood BLOOD SPECIMEN / Unknown 04/29/2023 9:44 AM CDT 04/29/2023 9:46 AM CDT Adrien Hernandez MD CHEMISTRY [facility] [address] [place] [address], from Last 3 Months Advance Directives Documents on File Type Date Recorded Patient Admissions Manager Expl anation Healthcare Directive 05/08/2016 2:18 PM QUIN, 01/26/2016 Healthcare Directive 05/23/2014 11:40 AM QUIN, 07/18/2005 Latest Code Status on File Code Status Date Activated Date Inactivated Comments Full Code 09/11/2022 11:35 AM 09/12/2022 4:00 PM Question Answer Comments Code Status Discussion: Reviewed Preferences Code Status History Code Status Date Activated Date Inactivated Comments Full Code 12/27/2020 12:05 PM 12/28/2020 1:08 PM Question Answer Comments Code Status Discussion: Discussed Full Code 12/13/2020 7:14 AM 12/13/2020 11:53 AM Question Answer Comments Code Status Discussion: Per Existing Order Full Code 01/05/2020 2:01 PM 01/05/2020 5:51 PM Full Code 12/06/2014 7:15 AM 12/06/2014 12:26 PM Care Teams Dictating Machine Mechanic Relationship Specialty Start Date End Date Adrien Hernandez MD [address] [place] [address] PCP - General Family Practice 10/28/16
--- OUTSIDE RECORDS SUMMARY | 2023-07-21 10:34 | XMS_ITS | Encounter Summary ---
Author Name Unknown Organization [facility] Address [address] [place] [id number] Care Team Providers Care Relay Worker Name Role Phone Adrien Hernandez MD Primary Care Provider [phone] Encounter Details Date Type Department Care Team (Latest Contact Info) Description 11/11/2022 Travel Social History Tobacco Use Types Packs/Day [...] on filedocumented in this encounter Care Teams Relay Worker Relationship Specialty Start Date End Date Adrien Hernandez MD [address] [place] [address] PCP - General 01/06/17 documented as of this encounter
--- OUTSIDE RECORDS SUMMARY | 2023-07-21 10:34 | XMS_ITS | Encounter Summary ---
Author Name Unknown Organization [facility] Address [address] [place] [address]. [place] [address] Care Team Providers Care Bookstore Clerk Name Role Phone Adrien Hernandez MD Primary Care Provider Encounter Details Date Type Department Care Team (Latest Contact Info) Description 03/18/2023 Medical Correspondence [facility] Info [facility] [address] [place] [phone] Outside, Provider [facility] Social History Tobacco Use Types Packs/Day Years Used Date Smoking Tobacco: Never Smokeless Tobacco: Never Alcohol Use Standard Drinks/Week Comments No 0 (1 standard drink = 0.6 oz pur e alcohol) Sex and Gender Information Value Date Recorded Sex Assigned at Not on file Gender Identity Not on file Sexual Orientation Not on file documented as of this encounter Plan of Treatment Not on file documented as of this encounter Visit Diagnoses Not on filedocumented in this encounter Care Teams Bookstore Clerk Relationship Specialty Start Date End Date Adrien Hernandez MD [address] [address] PCP - General 01/06/17 documented as of this encounter
--- OUTSIDE RECORDS SUMMARY | 2023-07-21 10:34 | XMS_ITS | Encounter Summary ---
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] Procedures PA REMOVAL IMPLANT, SUPERFICIAL PA REMOVAL DEEP IMPLANT PA ARTHRODESIS,ANKLE,OPEN PA FUSION FOOT BONES,SUBTALAR Right Removal Total Ankel Prosthesis and Tibiotalocalcaneal Fusion [facility] [address] [place] [address] Referral ID Status Reason Start Date Expiration Date Visits Re quested Visits Authorized [id number] 1 1 Encounter Details Date Type Department Care Team (Late st Contact Info) Description 11/11/2022 7:18 AM CDT Anesthesia Event [facility] [address], [address] [place] [address] Ekta Sullivan [facility] [address] [place] [id number] Anesthesia Record Procedure Summary Procedure Name Responsible Anesthesiologist Anesthesia Start Time Anesthesia Stop Time Right Removal Total Ankle Prosthesis (Right: Ankle) Ekta Sullivan 11/11/22 0718 11/11/22 0849 Events Date Time Event Comment 11/11/2022 0716 0718 An Start 0719 An Start Data 0719 AN REASSESS I attest that I have identified and re-evaluated the patient immediately before the induction of anesthesia and I am satisfied that the anesthetic plan is suitable for the patient's condition and procedure. The first vital signs recorded are pre- induction. Serena Ford APRN DRILL GRINDER 0723 Present 07 An Induction 0729 An LMA 0729 Quick Note Tourniquet righ t thigh inflated @ 300 0731 AN INCISION 0826 Quick Note Tourniquet defl ated 0835 Present 0840 LMA Removed 0842 an stop data 0849 An Stop Electronically signed by Serena Ford APRN DRILL GRINDER on November 11, 2022 8:50 AM Meds Name Total ceFAZolin Sodium (ANCEF) injection 2 g 2 g fentaNYL 50 mcg/mL 100 mcg lidocaine 2% 60 mg propofol 10 mg/mL 200 mg propofol drip mcg/kg/min 151.5 mg ePHEDrine 5 mg/mL in NS 25 mg phenylephrine (SUNNY-SYNEPHRINE) injection 100 mcg dexamethasone (DECADRON) 4 mg/mL 4 mg ondansetron 2 mg/mL 4 mg lactated ringers infusion 1,000 mL * Agents Name NO HELIOX O2 N2O Air Exp Sevoflurane Exp Isoflurane Exp Desflurane Exp N2O O2 Delivery Device Ins Sevoflurane Ins Isoflurane Ins Desflurane O2 Auxiliary * Blood No blood administrations on file. Lines, Drains, and Airways Type Details Placement Removal Incision/Surgical Site 11/11/22; 0822; R ight; Ankle 11/11/22 0822 by Christoph Blunt RN Incision/Surgical Site 04/24/20; 1026; L ateral, Right; Ankle; 11/12/22; 1036 04/24/20 1026 by Tom Cast RN 11/12/22 1036 by Stoney Choe RN Incision/Surgical Site 04/24/20; 1027; M edial, Right; Ankle; 11/12/22; 1036 04/24/20 1027 by Tom Cast RN 11/12/22 1036 by Stoney Choe RN Incision/Surgical Site 09/19/21; 1104; L eft; Hand; INCISIONS X 2; 11/12/22; 1036 09/19/21 1104 by Gaby Dash RN 11/12/22 1036 by Stoney Choe RN Peripheral IV 11/11/22; 0647; 20 G ; Anterior, Left; Hand; Chlorhexidine 11/11/22 0647 by Emily Pearce RN 11/12/22 1036 by Stoney Choe RN Supraglottic Airway Placement Date: 11/11/22; Placement Time: 728; Airway Type: 2nd Gen LMA; Mask Ventilation: 0; LMA Size: 5; Airway Brand: I-Gel; Attempts: 2 11/11/22 0729 by Serena Ford APRN DRILL GRINDER 11/11/22 0840 by Serena Ford APRN DRILL GRINDER documented in this encounter Social History Tobacco [...] AM CDT documented as of this encounter OR Notes * Anesthesia Postprocedure Evaluation - Ekta Sullivan - 11/11/2022 10:23 AM CDT Patient: Chente Rubin Procedure: Procedure(s): Right Removal Total Ankel Prosthesis and Tibiotalocalcaneal Fusion Anesthesia Type: General Note: Disposition: Outpatient Postop Pain Control: Uneventful Sign Out: Well controlled pain PONV: No Neuro/Psych: Uneventful Sign Out: Acceptable/Baseline neuro status Airway/Respiratory: Uneventful Sign Out: Acceptable/Baseline resp. status CV/Hemodynamics: Uneventful Sign Out: Acceptable CV status Other NRE: DID A NON-ROUTINE EVENT OCCUR? No Last vitals: Vitals Value Taken Time BP 126/86 11/11/22 1015 Temp 36.3 ??C (97.3 ??F) 11/11/22 0845 Pulse 68 11/11/22 1022 Resp 17 11/11/22 1022 SpO2 97 % 11/11/22 1022 Vitals shown include unvalidated device data. Electronically Signed By: Ekta Sullivan November 11, 2022 10:23 AM * Anesthesia Preprocedure Evaluation - Ekta Sullivan - 11/11/2022 7:12 AM CDT Anesthesia Pre-Procedure Evaluation Patient: Chente Rubin : 1945 Procedure : Procedure(s): Right Removal Total Ankel Prosthesis and Tibiotalocalcaneal Fusion Past Medical History: Diagnosis Date ??? Adenomatous colon polyp ??? Antiplatelet or antithrombotic long-term use ??? Anxiety ??? Arrhythmia a fib ??? Atrial fibrillation (H) ??? Body tinea ??? CHF (congestive heart failure) (H) ??? Congenital spondylolysis ??? Contact dermatitis ??? Dermatophytosis of body ??? Diverticulitis of colon ??? DJD (degenerative joint disease) ??? Dry eye ??? Eczema ??? ED (erectile dysfunction) ??? Gastroesophageal reflux disease ??? HTN (hypertension) ??? Hyperlipidemia ??? Incontinence of feces ??? Insomnia ??? Low testosterone ??? LVH (left ventricular hypertrophy) ??? Mitral regurgitation ??? Obese ??? Osteoarthritis ??? Osteoarthritis ??? 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 PONV (postoperative nausea and vomiting) ??? Prediabetes ??? Prostate CA (H) ??? Prostatic enlargement ??? Pulmonary nodule ??? Sarcoidosis ??? Sarcoidosis, lung (H) ??? Seborrheic keratoses ??? Thoracic aortic aneurysm (H) Past Surgical History: Procedure Laterality Date ??? ARTHRODESIS FOOT Left 02/03/2017 Procedure: ARTHRODESIS FOOT;; Surgeon: Bonnie Child MD; Location: [facility] ??? ARTHROPLASTY ANKLE Left 02/03/2017 Procedure: ARTHROPLASTY ANKLE; LEFT TOTAL ANKLE ARTHROPLASTY AND MIDFOOT FUSION; Surgeon: Bonnie Child MD; Location: [facility] ??? ARTHROPLASTY CARPOMETACARPAL (THUMB JOINT), ARTHRODESIS, COMBINED Left 09/19/2021 Procedure: LEFT THUMB CARPAL METACARPAL EXCISIONAL ARTHROPLASTY WITH FASCIA WANDA GRAFT. PARTIAL TRAPEZOID EXCISION, LEFT THUMB METAPHALANGEAL FUSION WITH EASY CLIP STAPLE; Surgeon: Dianna Charlton MD; Location[facility] ??? ARTHROPLASTY REVISION ANKLE Right 04/28/2017 Procedure: ARTHROPLASTY REVISION ANKLE; RIGHT REVISION TOTAL ANKLE ARTHROPLASTY (ALETA XT)^ WITH HARDWARE REMOVAL AND ACHILLES LENGTHENING; Surgeon: Bonnie Child MD; Location: [facility] ??? ARTHROPLASTY REVISION ANKLE Right 04/24/2020 Procedure: REVISION RIGHT TOTAL ANKLE ARTHROPLASTY AND BONE SPUR REMOVAL; Surgeon: Bonnie Child MD; Location[facility] ??? SHOULDER ARTHROSCOPY, DX Left ??? COLONOSCOPY ??? EGD, GASTROESOPHAGEAL REFLUX TEST WITH MUCOSAL PH ELECTRODE ??? GI SURGERY ??? HC ESOPHAGOSCOPY, DIAGNOSTIC ??? LENGTHEN TENDON ACHILLES Right 04/28/2017 Procedure: LENGTHEN TENDON ACHILLES;; Surgeon: Bonnie Child MD; Location: [facility] ??? PROSTATECTOMY PERINEAL ??? REMOVE HARDWARE ANKLE Right 04/28/2017 Procedure: REMOVE HARDWARE ANKLE;; Surgeon: Bonnie Child MD; Location: [facility] ??? REPAIR BLADDER BLADDER HYDRO DILATION ??? SEPTOPLASTY ??? SUPRAPUBIC PROSTATECTOMY ??? TIB FIB FX REPAIR ??? TONSILLECTOMY ??? ZZC ANESTH,BICEPS TENDON REPAIR ??? ZZC TOTAL ANKLE REPLACEMENT Right Allergies Allergen Reactions ??? Atorvastatin Muscle Pain (Myalgia) ??? Crestor [Rosuvastatin] Nausea ??? Lisinopril Cough ??? Naproxen Rash Social History Tobacco Use ??? Smoking status: Never ??? Smokeless tobacco: Never Vaping Use ??? Vaping status: Not on file Substance Use Topics ??? Alcohol use: No Wt Readings from Last 1 Encounters: 11/11/22 94.1 kg (207 lb 8 oz) Anesthesia Evaluation ROS/MED HX ENT/Pulmonary: Comment: Sarcoid (-) asthma, COPD and sleep apnea Neurologic: Cardiovascular: Comment: Aneurysm 4.6 (+) Dyslipidemia hypertension-----CHF dysrhythmias, a-fib, METS/Exercise Tolerance: Hematologic: Musculoskeletal: GI/Hepatic: (+) GERD, (-) liver disease Renal/Genitourinary: (-) renal disease Endo: Psychiatric/Substance Use: Infectious Disease: Malignancy: (+) Malignancy, History of Prostate. Other: Physical Exam Airway Mallampati: III TM distance: > 3 FB Neck ROM: full Respiratory Devices and Support Dental Comment: crowns Cardiovascular cardiovascular exam normal Pulmonary pulmonary exam normal OUTSIDE LABS: CBC: Lab Results Component Value Date WBC 7.5 06/13/2017 HGB 13.2 (L) 04/25/2020 HGB 14.2 06/13/2017 HCT 43.4 06/13/2017 PLT 229 06/13/2017 BMP: Lab Results Component Value Date NA 140 06/13/2017 POTASSIUM 4.4 06/13/2017 CHLORIDE 106 06/13/2017 CO2 25 06/13/2017 BUN 22 06/13/2017 CR 0.96 04/25/2020 CR 0.86 06/13/2017 GLC 110 (H) 04/25/2020 GLC 127 (H) 06/13/2017 COAGS: No results found for: PTT, INR, FIBR POC: Lab Results Component Value Date BGM 98 04/25/2020 HEPATIC: Lab Results Component Value Date ALBUMIN 3.9 06/13/2017 PROTTOTAL 8.1 06/13/2017 ALT 28 06/13/2017 AST 28 06/13/2017 ALKPHOS 108 06/13/2017 BILITOTAL 0.4 06/13/2017 OTHER: Lab Results Component Value Date LACT 1.5 06/13/2017 ANDRE 9.3 06/13/2017 LIPASE 226 06/13/2017 Anesthesia Plan ASA Status: 3 Anesthesia Type: General. - Airway: LMA Consents Anesthesia Plan(s) and associated risks, benefits, and realistic alternatives discussed. Questions answered and patient/underwriting service representative(s) expressed understanding. 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 Anesthesia Type: General Note: Oropharynx: oropharynx clear of all foreign objects Level of Consciousness: awake and drowsy Oxygen Supplementation: face mask Level of Supplemental Oxygen (L/min / FiO2): 6 Independent Airway: airway patency satisfactory and stable Dentition: dentition unchanged Vital Signs Stable: post-procedure vital signs reviewed and stable Report to RN Given: handoff report given Patient transferred to: PACU Comments: To PACU: Arouses easily, good airway, 02 face mask, VSS Report to RN Handoff Report: Identifed the Patient, Identified the Reponsible Provider, Reviewed the pertinent medical history, Discussed the surgical course, Reviewed Intra-OP anesthesia mangement and issues during anesthesia, Set expectations for post-procedure period and Allowed opportunity for questions andacknowledgement of understanding Vitals: Vitals Value Taken Time BP Temp Pulse Resp SpO2 Electronically Signed By: Serena Ford APRN CRNA November 11, 2022 8:49 AM documented in this encounter Plan of Treatment Not on file documented as of this encounter Visit Diagnoses Not on filedocumented in this encounter Administered Medications Inactive Administered Medications - up to 3 most recent administrations Medication Order MAR Action Action Date Dose Rate Site ceFAZolin Sodium (ANCEF) injection 2 g Routine, 2 g, Intravenous, PRE-OP/PRE-PROCEDURE, Starting on Fri11/11/22 at 0601, For 1 dose, Give first dose within 1 hour PRIOR to incision. If patient weight is greater than or equal to 120 kg increase dose to 3 g., Indications: Perioperative Pharmacoprophylaxis, Pre-procedure $Given 11/11/2022 7:18 AM CDT 2 g dexamethasone (DECADRON) injection Intravenous, PRN, Administer over 1 Minutes, Starting on Fri11/11/22 at 0743, Anesthesia Intra-op $Given 11/11/2022 7:43 AM CDT 4 mg ePHEDrine injection Intravenous, PRN, Starting on Fri11/11/22 at 0740, Anesthesia Intra-op $Given 11/11/2022 8:14 AM CDT 5 mg $Given 11/11/2022 7:55 AM CDT 5 mg $Given 11/11/2022 7:42 AM CDT 10 mg fentaNYL (PF) (SUBLIMAZE) injection Intravenous, PRN, Administer over 3-5 Minutes, Starting on Fri11/11/22 at 0727, Anesthesia Intra-op $Given 11/11/2022 8:12 AM CDT 50 mcg $Given 11/11/2022 7:27 AM CDT 50 mcg lactated ringers infusion at 10 mL/hr, Intravenous, CONTINUOUS, IF patient NOT on dialysis., Starting on Fri11/11/22 at 0630, Until Fri11/12/22 at 1308 $New Bag 11/11/2022 8:42 AM CDT Restarted 11/11/2022 7:18 AM CDT $New Bag 11/11/2022 6:47 AM CDT 10 mL/hr lidocaine 2% injection (MDV) Intravenous, PRN, Starting on Fri11/11/22 at 0727, Anesthesia Intra-op $Given 11/11/2022 7:27 AM CDT 60 mg ondansetron (ZOFRAN) injection Intravenous, PRN, Administer over 2-5 Minutes, Starting on Fri11/11/22 at 0743, Anesthesia Intra-op $Given 11/11/2022 7:43 AM CDT 4 mg phenylephrine (SUNNY-SYNEPHRINE) injection Intravenous, CONTINUOUS PRN, Starting on Fri11/11/22 at 0737, Anesthesia Intra-op $New Bag 11/11/2022 7:37 AM CDT 100 mcg propofol (DIPRIVAN) infusion Intravenous, CONTINUOUS PRN, Starting on Fri11/11/22 at 0731, Anesthesia Intra-op Rate/Dose Change 11/11/2022 7:48 AM CDT 30 mcg/kg/min 16.938 mL/hr Rate/Dose Change 11/11/2022 7:34 AM CDT 40 mcg/kg/min 22.5 84 mL/hr $New Bag 11/11/2022 7:31 AM CDT 50 mcg/kg/min 28.23 mL/h r propofol (DIPRIVAN) injection 10 mg/mL vial Intravenous, PRN, Starting on Fri11/11/22 at 0727, Anesthesia Intra-op $Given 11/11/2022 7:28 AM CDT 50 mg $Given 11/11/2022 7:27 AM CDT 150 mg documented in this encounter Care Teams Warehouser Relationship Specialty Start Date End Date Adrien Hernandez MD [address] [place] [address] PCP - General 01/06/17 documented as of this encounter
--- OUTSIDE RECORDS SUMMARY | 2023-07-21 10:34 | XMS_ITS | Referral Summary ---
Author Name Unknown Organization [facility] Address [address] [place] [address] Care Team Providers Care Wire Winding Machine Tender Name Role Phone Adrien Hernandez MD Primary Care Provider [phone] Allergies Active Allergy Reactions Criticality Noted Date Comments Atorvastatin Muscle Pain (Myalgia) 01/31/2017 Rosuvastatin Nausea 01/31/2017 Lisinopril Cough 01/31/2017 Naproxen Rash Low 01/31/2017 Medications Medication Sig Dispensed Refills Start Date End Date Status clotrimazole-betamet hasone (LOTRISONE) creamIndications:Tin ea Corporis Apply topically 2 times daily as needed (rash) 0 Active omeprazole (PRILOSEC) [address] capsule Take 1 capsule by mouth every evening (at 18:00) 0 Active Polyethyl Glycol-Propyl Glycol (SYSTANE OP) Place 1 drop into both eyes 2 times daily 0 Active acetaminophen (TYLENOL) 500 MG tablet Take 1-2 tablets by mouth every 6 hours as needed for mild pain 0 Active amLODIPine (NORVASC) 5 MG tablet Take 5 mg by mouth At Bedtime (at 22:30) 0 Active Testosterone Enanthate (XYOSTED) 75 MG/0.5ML SOAJ Inject 75 mg Subcutaneous once a week (on Friday) 0 Active aspirin-acetaminophe n-caffeine (EXCEDRIN MIGRAINE) 250-250-65 MG tablet Take 1 tablet by mouth every 6 hours as needed for headaches 0 Active eszopiclone (LUNESTA) 1 MG tablet Take 1 tablet by mouth At Bedtime 0 Active sotalol (BETAPACE) 80 MG tablet Take 0.5 tablets by mouth 2 times daily (0.5 x 80 mg = 40 mg) 0 Active augmented betamethasone dipropionate (DIPROLENE AF) 0.05 % external cream Apply topically 2 times daily as needed 0 Active diclofenac (VOLTAREN) 1 % topical gel Apply 2 g topically 4 times daily as needed for moderate pain 0 Active evolocumab (REPATHA) 140 MG/ML prefilled syringe Inject 140 mg Subcutaneous every 14 days 0 Active clopidogrel (PLAVIX) 75 MG tablet Take 1 tablet by mouth daily 0 Active amoxicillin (AMOXIL) 500 MG capsule Take 4 capsules by mouth once as needed (1 hour prior to dental appointments 4 x 500 mg = 2,000 mg) 0 Active aspirin 81 MG EC tablet Take 1 tablet (81 mg) by mouth daily Resume usual dose of aspirin after finishing increased dose prescribed after surgery 0 11/12/2022 Active aspirin (ASA) 81 MG EC tabletIndications:VT E Prophylaxis Take 1 tablet (81 mg) by mouth 2 times daily 60 tablet 0 11/12/2022 Active ondansetron (ZOFRAN ODT) 4 MG ODT tabIndications:S/P ankle fusion Take 1 tablet (4 mg) by mouth every 6 hours as needed for nausea or vomiting 15 tablet 1 11/12/2022 Active oxyCODONE (ROXICODONE) 5 MG tabletIndications:S/ P ankle fusion Take 1 tablet (5 mg) by mouth every 4 hours as needed for moderate pain 40 tablet 0 11/12/2022 Active senna-docusate (SENOKOT-S/PERICOLAC E) 8.6-50 MG tabletIndications:S/ P ankle fusion Take 1 tablet by mouth 2 times daily 40 tablet 1 11/12/2022 Active Active Problems Problem Noted Date Diagnosed Date 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 Social History Tobacco Use Types Packs/Day Years Used Date Smoking Tobacco: Never Smokeless Tobacco: Never Alcohol Use Standard Drinks/Week Comments No 0 (1 standard drink = 0.6 oz pur e alcohol) Adolescent Education Answer Date Record ed Getting School Help Needed Not on file 04/22 Sex and Gender Information Value Date Recorded Sex Assigned at Not on file Gender Identity Not on file Sexual Orientation Not on file Last Filed Vital Signs Vital Sign Reading [...] Mass Index 28.14 11/11/2022 6:09 AM CDT Plan of Treatment Not on file Medical Devices Implanted Type Area Fuse Assembler Device Identifier Shelf Expiration Date Model / Serial / Lot Graft Bone Infuse Bmp Sm [id number] Implanted:Qt y: 1 on 04/28/2017 by Bonnie Child MD at [facility] Bone/Tissue /Biologic Right: Ankle [employer] 09/03/2018 [id number] / [id number] / [id number] G Graft Fascia Sepideh Medium - [id number] Implanted:Qt y: 1 on 09/19/2021 by Dianna Charlton MD at [facility] Bone/Tissue /Biologic Left: Thumb MUSCULOSKELETAL B[employer] 03/26/2024 [id number] / [id number] / Graft Bone Head Femoral 44mm 004416 - [id number] Implanted:Qt y: 1 on 11/11/2022 by Bonnie Child MD at [facility] Bone/Tissue /Biologic Right: Ankle MUSCULOSKELETAL [employer] 05/04/2026 [id number] / [id number] / Imp Plate Arthrex Lapidus [id number] Implanted:Qt y: 1 on 02/03/2017 by Bonnie Child MD at [facility] Metallic Hardware/An chor Left: Foot ARTHREX [id number] / / AUTOCLAVE D FEBRUARY 03 2017 LOAD 42/03 Imp Staple Mmi Easyclip Si Forefoot [id number] Nxo83-71-63 - [id number] Implanted:Qt y: 1 on 09/19/2021 by CharltonDianna matos MD at [facility] Metallic Hardware/An chor Left: Thumb [employer] 04/05/2025 EAE81-06- 13 / / [id number] Imp End Cap Strk T2 Ft Spnial Scr 1826-0003s - [id number] Implanted:Qt y: 1 on 11/11/2022 by Bonnie Child MD at [facility] Metallic Hardware/An chor Right: Ankle [employer] [id number] 03/06/202718255488-7972 S / / [id number] Imp Comp Tornier Talar Ankle Size 3 Lt [id number] Implanted:Qt y: 1 on 02/03/2017 by Bonnie Child MD at [facility] Total Joint Component/I nsert Left: Ankle [employer] 09/03/2020 [id number] / [id number] / Imp Wire Nitin 0.062x4 78.2030 - [id number] Implanted:Qt y: 2 on 09/19/2021 by Dianna Charlton MD at [facility] Wire Left: Thumb G SOURCE 78.203 / 78.203 / [id number] Bme Elite [id number] One Nitinol Implant For Use With Dk-300 Drill Bit Kit Implanted:Qt y: 1 on 02/03/2017 by Bonnie Child MD at [facility] Left: Foot 06/05/2021 EL-2020S2 / / Graft Bone Infuse Bmp Sm [id number] Implanted:Qt y: 1 on 04/24/2020 by Bonnie Child MD at [facility] Right: Ankle [employer] 03/06/2022 [id number] / / [id number] T2 3mm X 285mm K-Wire Implanted:Qt y: 1 on 11/11/2022 by Bonnie Child MD at [facility] Right: Ankle 1275-1509 / / Explanted Type Area Fuse Assembler Device Identifier Shelf Expiration Date Model / Serial / Lot Imp Insert Tornier Tibial Ankle Size 3x11mm Rt [id number] Implanted:Qty: 1 on 04/28/2017 by Bonnie Child MD at [facility] Explanted:Qty: 1 on 04/24/2020 by Bonnie Child MD at [facility] Total Joint Component/ Insert Right: Ankle [employer] 07/06/2019 [id number] / [id number] / Agility Total Ankle Components X3 (Discarded) Explanted:Qty: 1 on 04/28/2017 by Bonnie Child MD at [facility] Right: Ankle Kimberly Talaris Xt Size 3 Right Talar Part Short Peg Implanted:Qty: 1 on 04/28/2017 by Bonnie Child MD at [facility] Explanted:Qty: 1 on 04/24/2020 by Bonnie Child MD at [facility] Right: Ankle 04/17/2020 [id number] / [id number] / Imp Kimberly Talaris Xt Talar Part Short Peg Size 3 Right Implanted:Qty: 1 on 04/24/2020 by Bonnie Child MD at [facility] Explanted:Qty: 1 on 11/11/2022 by Bnonie Child MD at [facility] Right: Ankle TORNIER 06/14/2021 SXP000 / [id number] / Advance Directives For more information, please contact: [phone] Latest Code Status on File Code Status Date Activated Date Inactivated Comments Full Code 11/11/2022 11:20 AM 11/12/2022 1:08 PM All ba sic and advanced life-sustaining interventions are performed as appropriate Question Answer Comments Code status determined by: Discussion with patient/ legal decision maker Code Status History Code Status Date Activated Date Inactivated Comments Full Code 04/28/2017 1:39 PM 04/30/2017 1:09 PM Full Code 02/03/2017 4:08 PM 02/05/2017 3:35 PM Care Teams Wire Winding Machine Tender Relationship Specialty Start Date End Date Adrien Hernandez MD [address] [place] [address] PCP - General 01/06/17
--- OUTSIDE RECORDS SUMMARY | 2023-07-21 10:34 | XMS_ITS | Clinical Summary ---
Author Name Unknown Organization [facility] Address [address] [place] [address] Care Team Providers Care Dressmaker Or Tailor Name Role Phone Adrien Hernandez MD Primary Care Provider [phone] Allergies Active Allergy Reactions Criticality Noted Date [...] 11/11/2022 6:09 AM CDT Plan of Treatment Health Maintenance Due Date Last Done Comments ADVANCE CARE PLANNING 1945 ANNUAL REVIEW OF HM ORDERS 1945 HEPATITIS C SCREENING 1965 LIPID 1982 RSV VACCINE ( & 60+) (1 - 1-dose 60+ series) 2007 FALL RISK ASSESSMENT 2012 MEDICARE ANNUAL WELLNESS VISIT 07/16/2022 07/16/2021, 05/01/2020 COVID-19 Vaccine ( season) 2023 05/16/2022, 12/07/2021, 05/07/2021, Additional history exists INFLUENZA VACCINE (#1) 2023 , 05/14/2021, 04/06/2020, Additional history exists PHQ-2 (once per calendar year) 2023 DTAP/TDAP/TD IMMUNIZATION (5 - Td or Tdap) 01/15/2030 01/16/2020, 02/19/2013, 10/31/2006, Additional history exists Pneumococcal Vaccine: 65+ Years Completed 06/26/2015, 06/11/2012 ZOSTER IMMUNIZATION Completed 08/03/2019, 05/24/2019, 08/02/2008 HPV IMMUNIZATION Aged Out No longer e ligible based on patient's age to complete this topic IPV IMMUNIZATION Aged Out No longer e ligible based on patient's age to complete this topic MENINGITIS IMMUNIZATION Aged Out No l onger eligible based on patient's age to complete this topic RSV MONOCLONAL ANTIBODY Aged Out No l onger eligible based on patient's age to complete this topic Medical Devices Implanted Type Area Information Systems Architect Device Identifier Shelf Expiration Date Model / Serial / Lot Graft Bone Infuse Bmp Sm [id number] Implanted:Qt y: 1 on 04/28/2017 by Bonnie Child MD at [facility] Bone/Tissue /Biologic Right: Ankle [employer] 09/03/2018 [id number] / [id number] / [id number] G Graft Fascia Sepideh Medium - [id number] Implanted:Qt y: 1 on 09/19/2021 by Dianna Charlton MD at [facility] Bone/Tissue /Biologic Left: Thumb MUSCULOSKELETAL [employer] 03/26/2024 [id number] / [id number] / Graft Bone Head Femoral 44mm 003833 - [id number] Implanted:Qt y: 1 on 11/11/2022 by Bonnie Child MD at [facility] Bone/Tissue /Biologic Right: Ankle [employer]OSKELET[employer] 05/04/2026 [id number] / [id number] / Imp Plate Arthrex Lapidus Ar-8941 Implanted:Qt y: 1 on 02/03/2017 by Bonnie Child MD at [facility] Metallic Hardware/An chor Left: Foot ARTHREX AR-8941 / / AUTOCLAVE D FEBRUARY 03 2017 LOAD 42/03 Imp Staple Mmi Easyclip Si Forefoot [id number] Uew44-78-48 - [id number] Implanted:Qt y: 1 on 09/19/2021 by Dianna Charlton MD at [facility] Metallic Hardware/An chor Left: Thumb [employer] 04/05/2025 CFY80-19- 13 / / [id number] Imp End Cap Strk T2 Ft Spnial Scr 1826-0003s - [id number] Implanted:Qt y: 1 on 11/11/2022 by Bonnie Child MD at [facility] Metallic Hardware/An chor Right: Ankle [employer] [id number] 03/06/2027 9757-9446 S / / [id number] Imp Comp Tornier Talar Ankle Size 3 Lt [id number] Implanted:Qt y: 1 on 02/03/2017 by Bonnie Child MD at [facility] Total Joint Component/I nsert Left: Ankle [employer] 09/03/2020 ISN876 / [id number] / Imp Wire Nitin 0.062x4 78.2030 - [id number] Implanted:Qt y: 2 on 09/19/2021 by Dianna Charlton MD at [facility] Wire Left: Thumb G [employer]OURCE 78.203 / 78.203 / [id number] Bme Elite [id number] One Nitinol Implant For Use With Dk-300 Drill Bit Kit Implanted:Qt y: 1 on 02/03/2017 by Bonnie Child MD at [facility] Left: Foot 06/05/2021 EL-2020S2 / / Graft Bone Infuse Bmp Sm [id number] Implanted:Qt y: 1 on 04/24/2020 by Bonnie Child MD at [facility] Right: Ankle [employer] 03/06/2022 [id number] / / [id number] T2 3mm X 285mm K-Wire Implanted:Qt y: 1 on 11/11/2022 by Bonnie Child MD at [facility] Right: Ankle [id number] / / Explanted Type Area Information Systems Architect Device Identifier Shelf Expiration Date Model / Serial / Lot Imp Insert Tornier Tibial Ankle Size 3x11mm Rt [id number] Implanted:Qty: 1 on 04/28/2017 by Bonnie Child MD at [facility] Explanted:Qty: 1 on 04/24/2020 by Bonnie Child MD at [facility] Total Joint Component/ Insert Right: Ankle [employer] 07/06/2019 [id number] / [id number] / Agility Total Ankle Components X3 (Discarded) Explanted:Qty: 1 on 04/28/2017 by Bonnie Child MD at [facility] Right: Ankle Kimberly Talaris Xt Size 3 Right Talar Part Short Peg Implanted:Qty: 1 on 04/28/2017 by Bonnie Child MD at [facility] Explanted:Qty: 1 on 04/24/2020 by Bonnie Child MD at [facility] Right: Ankle 04/17/2020 [id number] / [id number] / Imp Kimberly Talaris Xt Talar Part Short Peg Size 3 Right Implanted:Qty: 1 on 04/24/2020 by Bonnie Child MD at [facility] Explanted:Qty: 1 on 11/11/2022 by Bonnie Child MD at [facility] Right: Ankle TORNIER 06/14/2021 [id number] / [id number] / Advance Directives For more information, please contact: [phone] Latest Code Status on File Code Status [...] 4:08 PM 02/05/2017 3:35 PM Care Teams Dressmaker Or Tailor Relationship Specialty Start Date End Date [place] [address] [place] [address] [facility] - General 01/06/17
--- OUTSIDE RECORDS SUMMARY | 2023-07-21 10:35 | XMS_ITS | Data Portability ---
Author Name Unknown Address [address] [place] [address] Phone [phone] Organization [facility] Address [address] [place] [address] Care Team Providers Care Hostage Negotiator Name Role Phone KJ RODAS Primary Care Provider [phone] Assessment No assessment recorded. Plan of Treatment Reminders Order Date Submit Date Provider Last Modified By Organization Details Last Modified Time Details Appointments ESTABLISH ED PHONE VISIT 20 2023 09:30A Angel Batista MD Not available Not available Not available Lab testoster one, total, serum 2022 023 [email or web address] [facility], [address] [place], [address], 04/30/2023 12:29:25 PSA, total, serum or plasma 2022 023 0 [facility], [address] [place], [address], 10/15/2022 08:45:23 testoster one, total, serum 2022 023 [email or web address] 0 [facility], [address], [place], [address], 10/15/2022 08:45:23 hemoglobi n (Hb), blood 2022 023 [email or web address] 0 [facility], [address] [place], [address], 10/15/2022 08:45:23 PSA, total, serum or plasma 2021 022 [email or web address] 0 [facility], [address] [place], [address], 04/17/2022 08:48:27 testoster one, total, serum 2021 022 [email or web address] 0 [facility], [address] [facility], [place], [address], 04/17/2022 08:48:27 Referral None recorded. Procedures None recorded. Surgeries None recorded. Imaging None recorded. Medication Orders Xyosted 75 mg/0.5 mL subcutane ous auto-inje ctor 2022 023 PIPPA PASSES [id number], [address], [place], [phone], 04/07/2023 10:27:30 Xyosted 75 mg/0.5 mL subcutane ous auto-inje ctor 2022 023 PIPPA PASSES [id number], [address], [place], [phone], 10/07/2022 11:50:48 Xyosted 75 mg/0.5 mL subcutane ous auto-inje ctor 2021 022 [email or web address] [facility], [address], [place], [phone], 04/09/2022 00:08:40 Patient TargetsNo targets recorded. Patient Instructions Encounter Date Encounter Id Patient Instructions Last Modified By Organization Details Last Modified Time 04/07/2023 [id number] Telephone - 7 minutes Not available 04/07/2023 10:27:29 10/07/2022 [id number] Telephone - 6 minutes Not available 10/07/2022 11:46:16 04/08/2022 [id number] Telephone - 10 minutes Not available 04/08/2022 11:04:02 Reason for Referral None Reported. Results Created Date Observation Date Name Description Value Unit Range Abnormal Flag LastModifiedBy Organization Detail LastModifiedTime Result Notes None recorded. Problems Name Status Onset Date Resolution Date Notes Provider Name and Address Organization Details Recorded Time Mixed urinary incontinence Active 015 788.33 : MIXED INCONTINENCE Not Available [facility] 0 02:08:45 Primary malignant neoplasm of prostate Active 015 185 : CARCINOMA-PRO STATE Not Available [facility] 0 02:08:45 Impotence Active 015 N52.9 : Male erectile dysfunction unspecified Not Available [facility] 0 02:08:45 Problem Notes None recorded. Procedures Surgical History Date Name Laterality Status Provider Name and Address Organization Details Recorded Time 09/20/19 21 implantation of penile prosthesis completed Zaheer laird [facility] 04/08/2022 10:07:35 09/20/19 21 insertion of single incision mid-urethral mini-sling completed Zaheer laird [facility] 04/08/2022 10:08:14 10/26/19 15 prostatectomy completed Zaheer laird [facility] 04/08/2022 10:06:57 Imaging Results None recorded. Procedure Notes None recorded. Medical Equipment None Reported. Allergies Allergen ID Allergen Name Allergen Category Reaction Reaction Severity Criticality Documentation Date Start Date Code Code System Note Provider Name and Address Organization Details Recorded Time [id number] naproxen medicatio n Not available Not available Not available 12/23/20192014 7258 RxNorm Not Available [facility] 0 00:42:12 371964 Product containin g 3-hydroxy -3-methyl glutaryl- coenzyme A reductase inhibitor (product) medicatio n myalgias (muscle pain) Not available Not available 04/08/2022 44397 009 SNOMED Zaheer laird [facility] 2 10:26:44 Medications Name Sig Start Date Stop Date Status Note LastModified by Organization Details LastModified Time senna-s 8.6mg-50mg tablets TAKE 1 OR 2 TABLETS BY MOUTH DAILY TO PREVENT CONSTIPAT ION active Not Available Not Available No t Available amoxicillin 500 mg capsule TK FOUR CS PO 1 HOUR B DAPP active Not Available Not Available No t Available doxycycline hyclate 100 mg capsule TAKE 1 CAPSULE BY MOUTH TWO TIMES A DAY FOR 10 DAYS 10/07 completed Not Available Not Available Not Available ketoconazol e 2 % shampoo WASH TO THE AFFECTED AREA IN GROIN AND BUTTOCKS 2-3 TIMES WEEKLY. LATHER AND LET SIT 3-5 MINUTES BEFORE RINSING. 04/07 completed Not Available Not Available Not Available tizanidine 2 mg tablet TAKE 1-2 TABLET BY MOUTH AT BEDTIME active Not Available Not Available No t Available hydrocodone 5 mg-acetamin ophen 325 mg tablet TAKE 1 TO 2 TABLETS BY MOUTH EVERY 4 TO 6 HOURS NEEDED FOR PAIN active Not Available Not Available No t Available sotalol 80 mg tablet TAKE 1 TABLET BY MOUTH TWICE DAILY BEFORE MEALS active Not Available Not Available No t Available prednisone 20 mg tablet 04/07 completed Not Available Not Available Not Available betamethaso ne, augmented 0.05 % topical cream 04/07 completed Not Available Not Available Not Available metronidazo le 500 mg tablet TAKE 1 TABLET BY MOUTH EVERY MORNING AND 1 EVERY EVENING FOR 7 DAYS 04/07 completed Not Available Not Available Not Available clopidogrel 75 mg tablet active Not Available Not Available Not Available amlodipine 5 mg tablet TAKE 1 TABLET BY MOUTH ONCE DAILY. active Not Available Not Available No t Available ciprofloxac in 500 mg tablet TAKE 1 TABLET BY MOUTH EVERY MORNING AND 1 EVERY EVENING FOR 7 DAYS 04/08 completed Not Available Not Available Not Available omeprazole 40 mg capsule,del ayed release active Not Available Not Available Not Available triamcinolo ne acetonide 0.1 % topical cream APPLY A THIN LAYER TO THE AFFECTED AREA ON ARMS AND TRUNK 1-2 TIMES DAILY FOR 2 WEEKS. REPEAT NEEDED FOR FLARES 04/07 completed Not Available Not Available Not Available ketorolac 0.5 % eye drops 04/07 completed Not Available Not Available Not Available hydromorpho ne 2 mg tablet 04/08 completed Not Available Not Available Not Available prednisolon e acetate 1 % eye drops,suspe nsion 04/07 completed Not Available Not Available Not Available clindamycin 1 % topical gel APPLY TOPICALLY TO THE AFFECTED AREA TWICE DAILY FOR 7 DAYS 04/07 completed Not Available Not Available Not Available doxycycline monohydrate 100 mg capsule TAKE 1 CAPSULE BY MOUTH TWICE DAILY FOR 2 WEEKS. TAKE WITN NON-DAIRY FOOD AND SUPPLEMEN T WITH A PROBIOTIC 04/08 completed Not Available Not Available Not Available cephalexin 500 mg capsule TAKE 1 CAPSULE BY MOUTH THREE TIMES DAILY UNTIL GONE 10/07 completed Not Available Not Available Not Available polymyxin B sulfate 10,000 unit-trimet hoprim 1 mg/mL eye drops active Not Available Not Available Not Available betamethaso ne, augmented 0.05 % topical ointment active Not Available Not Available Not Available omeprazole 20 mg capsule,del ayed release TAKE 1 CAPSULE BY MOUTH EVERY DAY BEFORE A MEAL 04/07 completed Not Available Not Available Not Available mupirocin 2 % topical ointment APPLY TO EXCISION SITE 1-2 TIMES DAILY UNTIL HEALED 04/07 completed Not Available Not Available Not Available pilocarpine 4 % eye drops PLACE 1 DROP INTO LEFT EYE 4 TIMES DAILY 04/07 completed Not Available Not Available Not Available celecoxib 100 mg capsule active Not Available Not Available Not Available bromphenira mine-pseudo ephedrine-D M 2 mg-30 mg-10 mg/5 mL oral syrup TAKE 5 MILLILITE RS BY MOUTH FOUR TIMES A DAY NEEDED FOR COUGH 04/07 completed Not Available Not Available Not Available ondansetron 4 mg disintegrat ing tablet active Not Available Not Available N ot Available gentamicin 0.1 % topical ointment APPLY TO THE AFFECTED AREA TWICE DAILY FOR 2 WEEKS 04/07 completed Not Available Not Available Not Available diazepam 5 mg tablet TAKE 1 TABLET BY MOUTH BEFORE PROCEDURE . MAY REPEAT 1 TIME 04/08 completed Not Available Not Available Not Available amoxicillin 875 mg-potassiu m clavulanate 125 mg tablet TAKE 1 TABLET EVERY MORNING AND 1 TABLET EVERY EVENING WITH MEALS FOR 7 DYAS 04/08 completed Not Available Not Available Not Available oxycodone 5 mg tablet active Not Available Not Available No t Available moxifloxaci n 0.5 % eye drops 04/07 completed Not Available Not Available Not Available metoprolol tartrate 25 mg tablet TAKE 1 TABLET BY MOUTH TWICE DAILY 04/07 completed Not Available Not Available Not Available eszopiclone 1 mg tablet TAKE 1 TABLET BY MOUTH AT BEDTIME active Not Available Not Available No t Available diclofenac 1 % topical gel APPLY 2 GRAMS TOPICALLY TO THE AFFECTED AREA FOUR TIMES DAILY active Not Available Not Available No t Available Eliquis 5 mg tablet active Not Available Not Available No t Available Repatha SureClick 140 mg/mL subcutaneou s pen injector INJECT 1ML SUBCUTANE OUS EVERY 2 WEEKS active Not Available Not Available No t Available Xyosted 75 mg/0.5 mL subcutaneou s auto-inject or ADMINISTE R 0.5 ML UNDER THE SKIN EVERY WEEK active Not Available Not Available No t Available Vitals Date Recorded Body height Body mass index (BMI) Body weight Provider Name and Address Organization Details Last Updated DateTime 04/08/2022 182.88 cm 27.4 kg/m2 74489.66 g Zaheer laird [facility] 04/08/2022 10:26:15 Date Recorded Body height Body mass index (BMI) Body weight Provider Name and Address Organization Details Last Updated DateTime 10/07/2022 182.88 cm 27.9 kg/m2 50779.03 rolf laird [facility] 10/07/2022 10:57:49 Date Recorded Body height Body mass index (BMI) Body weight Provider Name and Address Organization Details Last Updated DateTime 04/07/2023 182.88 cm 27.9 kg/m2 01648.03 rolf laird [facility] 04/07/2023 10:02:38 Social History Question Answer Notes LastModified by Organizat ion Details LastModified Time Tobacco Smoking Status Never Smoker Zaheer laird [facility] 04/08/2022 10:05:49 What Was The Date Of Your Most Recent Tobacco Screening? 10/07/2022 [email or web address] Information not available 10/07/2022 Sex: Male Functional Status None recorded. Mental Status None recorded. Family History Nothing Reported. Medical History Condition Response Diabetes Y Bleeding Disorder Other High Blood Pressure Y Heart Disease Y Cancer Depression Y Lung Disease Y Immunizations Vaccine Type Date Status Provider Name and Address Organization Details Recorded Time influenza, trivalent, adjuvanted 03/26/2019 completed Rajni laird [facility] 04/07/2023 10:02:45 influenza, trivalent, adjuvanted 04/10/2017 completed Rajni Hoang null, [facility] 04/07/2023 10:02:45 influenza, trivalent, adjuvanted 04/13/2018 completed Rajni Hoang null, [facility] 04/07/2023 10:02:45 zoster recombinant 08/03/2019 completed Rajni Me ndoza null, [facility] 04/07/2023 10:02:45 zoster recombinant 05/25/2019 completed Rajni Me ndoza null, [facility] 04/07/2023 10:02:45 Influenza vaccine, quadrivalent, adjuvanted 04/06/2020 completed Rajni Hoang null, [facility] 04/07/2023 10:02:45 Influenza vaccine, quadrivalent, adjuvanted 05/14/2021 completed Rajni Hoang null, [facility] 04/07/2023 10:02:45 COVID-19, mRNA, LNP-S, PF, 30 mcg/0.3 mL dose 09/13/2020 completed Rajni Hoang null, [facility] 04/07/2023 10:02:45 COVID-19, mRNA, LNP-S, PF, 30 mcg/0.3 mL dose 10/04/2020 completed Rajni Morleyoza null, [facility] 04/07/2023 10:02:45 COVID-19, mRNA, LNP-S, PF, 30 mcg/0.3 mL dose 05/07/2021 completed Rajni Morleyoza null, [facility] 04/07/2023 10:02:45 COVID-19, mRNA, LNP-S, PF, 30 mcg/0.3 mL dose, irwin-sucrose 12/07/2021 completed Rajni Hoang null, [facility] 04/07/2023 10:02:45 pneumococcal polysaccharide PPV23 06/11/2012 completed Rajni Hoang null, [facility] 04/07/2023 10:02:45 Tdap 10/31/2006 completed Rajni Hoang null, [facility] 04/07/2023 10:02:45 Tdap 01/16/2020 completed Rajni Hoang null, [facility] 04/07/2023 10:02:45 Tdap 02/19/2013 completed Rajni Hoang null, [facility] 04/07/2023 10:02:45 Pneumococcal conjugate PCV 13 06/26/2015 completed Rajni Hoang null, [facility] 04/07/2023 10:02:45 yellow fever 08/23/2011 completed Rajni Hoang null, [facility] 04/07/2023 10:02:45 zoster live 08/02/2008 completed Rajni Hoang null, [facility] 04/07/2023 10:02:45 Influenza, high dose seasonal 04/22/2016 completed Rajni Hoang null, [facility] 04/07/2023 10:02:45 Influenza, high dose seasonal 04/24/2015 completed Rajni Hoang null, [facility] 04/07/2023 10:02:45 Influenza, seasonal, injectable 03/28/2009 completed Rajni Hoang null, [facility] 04/07/2023 10:02:45 Influenza, seasonal, injectable 04/17/2010 completed Rajni Hoang null, [facility] 04/07/2023 10:02:45 Influenza, seasonal, injectable 05/23/2003 completed Rjani Hoang null, [facility] 04/07/2023 10:02:45 Influenza, seasonal, injectable 05/24/2008 completed Rajni Hoang null, [facility] 04/07/2023 10:02:45 Influenza, seasonal, injectable 06/01/2007 completed Rajni Hoang null, [facility] 04/07/2023 10:02:45 Influenza, seasonal, injectable 06/11/2012 completed Rajni Hoang null, [facility] 04/07/2023 10:02:45 Influenza, seasonal, injectable 06/13/2006 completed Rajni Hoang null, [facility] 04/07/2023 10:02:45 Hep A, adult 07/29/2017 completed Rajni Hoang null, [facility] 04/07/2023 10:02:45 typhoid, ViCPs 07/29/2017 completed Rajni Mendoz a null, [facility] 04/07/2023 10:02:45 Hep A-Hep B 09/13/2011 completed Rajni laird [facility] 04/07/2023 10:02:45 Past Encounters Encounter ID Performer Location Encounter Start Date Encounter Closed Date Diagnosis/Indication [id number] Koby Batista MD [facility] [address] [place] [address] 04/08/2022 10:00:51 04/11/2022 15:05:20 Carcinoma of prostate Testosterone level below reference range [id number] MD [facility]UMI[facility] [address] [place] [address] 10/07/2022 10:57:06 10/11/2022 09:16:28 Testosterone level below reference range Carcinoma of prostate [id number] Koby Batista MD [facility] [address] [place] [address] 04/07/2023 10:02:01 04/17/2023 14:02:17 Testosterone level below reference range Carcinoma of prostate Health Concerns Section Related Observation LastModified by Organization Detai ls LastModified Time None Recorded Concern Status LastModified by Organization Details LastModified Time None Recorded Advance Directives Directive None Recorded Payers Encounter Date Sequence Insurance Name Policy Number Policy Ramos Covered Member ID Ramos Member ID Guarantor Name 04/07/2023 1 [employer] (MEDICARE REPLACEMENT/ ADVANTAGE - PPO) [id number] Chente Rubin [id number] Chente Rubin 10/07/2022 1 [employer] (MEDICARE REPLACEMENT/ ADVANTAGE - PPO) [id number] Chente Rubin [id number] Chente Rubin 04/08/2022 1 [employer] (MEDICARE REPLACEMENT/ ADVANTAGE - PPO) [id number] Chente Erik Rubin [id number] Chente Erik Rubin Notes Date Note Type Note Provider Name and Address Organization Details Recorded Time 04/08/2022 text/html HPI Notes: 76 yo male with history of prostate cancer, low testosterone, and erectile dysfunction. His prostate cancer was treated with a robot-assisted laparoscopic prostatectomy by Dr. Pulido on October 25, 2014. He was staged as a pT2c No - ([place] 3+4 = 7) ? all surgical margins were negative. His PSA has been undetectable to date. He's had no spontaneous erections since surgery. Oral medications (Cialis/Viagra) have not helped. He tried DAVID - did not like it. He tried Trimix 1 mL - minimal erections - currently uses Quadmix (discontinued). Stendra 200 mg helped - not covered by insurance. He underwent stem-cell inject for ED in October in [place]. He tried Oxybutynin ER 5 mg daily (no changed). He has tried Androgel 50 mg daily and 100 mg daily - still has low Testosterone. 09/19/20 - IPP and Coloplast male urethral sling placement ([place] - Dr. Ashok Goins) 10/08/21 - He presents today for follow-up on Prostate cancer and low testosterone. He is on Xyosted 75 mg SC weekly. He reports energy levels are okay. He voids every 2-3 hours during the day and 1-2x/night. He denies urgency and dysuria. He still has stress incontinence (with bending, coughing, and with intercourse). He notes a bend to the Left (after surgery). He notes occasional discomfort in the scrotum. 04/08/22 - He presents for follow-up on Prostate cancer and low testosterone. He voids every 2-3 hours during the day and 1-4x/night. He denies dysuria - has occasional urgency. He reports a small amount of urine leakage after urination - no leakage at night. PSA - < 0.03 (04/19/16) - < 0.03 (10/08/16) - < 0.03 (04/09/17) - < 0.03 (10/27/17) - < 0.03 (08/07/18) - < 0.03 (02/15/19) - < 0.03 (11/08/20) - < 0.03 (09/17/21) - < 0.03 (02/18/22) Testosterone - 177 ng (08/07/18) - Free 4.96 - 271 (07/14/19) - 584 (11/08/20) - 877 (09/17/21) - 666 (02/18/22) Hgb - 13.4 (05/13/19) - 12.7 (12/07/20) - 14.7 (09/17/21) CT scan (06/13/17) revealed 3 mm Left UVJ stone - no stones in either kidney This visit was conducted by telephone due to the COVID-19 crisis. Prior to conducting our telephone visit, the patient was apprised of the risks, benefits and alternatives to telephone visits including but not limited to poor audio quality, interrupted visits due to technological limitations, delays in medical evaluation and treatment due to deficiencies or failures of equipment, failure of security protocols resulting in a breach of privacy of personal medical information and a lack of access to complete medical records resulting in not fully informed decisions. Also, because of the COVID-19 pandemic, it was not possible for the patient to sign the privacy regulations, HIPAA release and assignment of benefits forms. The patient was given the opportunity to ask questions about these policies and gave verbal acknowledgement and approval of these policies as well as to hold this meeting by telephone. Lastly, the patient agreed to allowing their medication history to be pulled from a national pharmacy database to facilitate and coordinate their care. Koby Batista MD [address] [place] [address],[address], [place], [address], [facility] 04/16/2022 23:09:44 10/07/2022 text/html HPI Notes: 77 yo male with history of prostate cancer, low testosterone, and erectile dysfunction. His prostate cancer was treated with a robot-assisted laparoscopic prostatectomy by Dr. Pulido on October 25, 2014. He was staged as a pT2c No - ([place] 3+4 = 7) ? all surgical margins were negative. His PSA has been undetectable to date. He's had no spontaneous erections since surgery. Oral medications (Cialis/Viagra) have not helped. He tried DAVID - did not like it. He tried Trimix 1 mL - minimal erections - currently uses Quadmix (discontinued). Stendra 200 mg helped - not covered by insurance. He underwent stem-cell inject for ED in October in [place]. He tried Oxybutynin ER 5 mg daily (no changed). He has tried Androgel 50 mg daily and 100 mg daily - still has low Testosterone. 09/19/20 - IPP and Coloplast male urethral sling placement ([place] - Dr. Ashok Goins) 04/08/22 - He presents for follow-up on Prostate cancer and low testosterone. He voids every 2-3 hours during the day and 1-4x/night. He denies dysuria - has occasional urgency. He reports a small amount of urine leakage after urination - no leakage at night. 10/07/22 - He presents for follow-up on low testosterone. He states his energy levels and libido are good. He voids every 2-3 hours during the day and 1-3x/night. He denies dysuria - has occasional urgency. He reports a small amount of urine leakage after urination - no leakage at night - occasional leakage with bending or standing up. PSA - < 0.03 (04/19/16) - < 0.03 (10/08/16) - < 0.03 (04/09/17) - < 0.03 (10/27/17) - < 0.03 (08/07/18) - < 0.03 (02/15/19) - < 0.03 (11/08/20) - < 0.03 (09/17/21) - < 0.03 (02/18/22) Testosterone - 177 ng (08/07/18) - Free 4.96 - 271 (07/14/19) - 584 (11/08/20) - 877 (09/17/21) - 666 (02/18/22) - 771 (08/21/22) Hgb - 13.4 (05/13/19) - 12.7 (12/07/20) - 14.7 (09/17/21) CT scan (06/13/17) revealed 3 mm Left UVJ stone - no stones in either kidney This visit was conducted by telephone due to the COVID-19 crisis. Prior to conducting our telephone visit, the patient was apprised of the risks, benefits and alternatives to telephone visits including but not limited to poor audio quality, interrupted visits due to technological limitations, delays in medical evaluation and treatment due to deficiencies or failures of equipment, failure of security protocols resulting in a breach of privacy of personal medical information and a lack of access to complete medical records resulting in not fully informed decisions. Also, because of the COVID-19 pandemic, it was not possible for the patient to sign the privacy regulations, HIPAA release and assignment of benefits forms. The patient was given the opportunity to ask questions about these policies and gave verbal acknowledgement and approval of these policies as well as to hold this meeting by telephone. Lastly, the patient agreed to allowing their medication history to be pulled from a national pharmacy database to facilitate and coordinate their care. Koby Batista MD [address] [place] [address],[address], [place], [address], [facility] 10/07/2022 11:50:55 04/07/2023 text/html HPI Notes: 77 yo male with history of prostate cancer, low testosterone, and erectile dysfunction. His prostate cancer was treated with a robot-assisted laparoscopic prostatectomy by Dr. Pulido on October 25, 2014. He was staged as a pT2c No - ([place] 3+4 = 7) ? all surgical margins were negative. His PSA has been undetectable to date. He's had no spontaneous erections since surgery. Oral medications (Cialis/Viagra) have not helped. He tried DAVID - did not like it. He tried Trimix 1 mL - minimal erections - currently uses Quadmix (discontinued). Stendra 200 mg helped - not covered by insurance. He underwent stem-cell inject for ED in October in [place]. He tried Oxybutynin ER 5 mg daily (no changed). He has tried Androgel 50 mg daily and 100 mg daily - still has low Testosterone. Prostate cancer - pT2c No Mx - [place] 3+4=7 - s/p RALP (10/25/14) - (Dr. Pulido) - negative margins - no recurrance to date. 09/19/20 - IPP and Coloplast male urethral sling placement ([place] - Dr. Ashok Goins) 10/07/22 - He presents for follow-up on low testosterone. He states his energy levels and libido are good. He voids every 2-3 hours during the day and 1-3x/night. He denies dysuria - has occasional urgency. He reports a small amount of urine leakage after urination - no leakage at night - occasional leakage with bending or standing up. 04/07/23 - He presents for follow-up on low testosterone and prostate cancer. He voids every 2-3 hours during the day and 1-3x/night. He notes occasional urine leakage after urination and with bending / standing. PSA - < 0.03 (04/19/16) - < 0.03 (10/08/16) - < 0.03 (04/09/17) - < 0.03 (10/27/17) - < 0.03 (08/07/18) - < 0.03 (02/15/19) - < 0.03 (11/08/20) - < 0.03 (09/17/21) - < 0.03 (02/18/22) - < 0.02 (02/24/23) Testosterone - 177 ng (08/07/18) - Free 4.96 - 271 (07/14/19) - 584 (11/08/20) - 877 (09/17/21) - 666 (02/18/22) - 771 (08/21/22) - 715 (02/24/23) Hgb - 13.4 (05/13/19) - 12.7 (12/07/20) - 14.7 (09/17/21) - 14.5 (02/24/23) CT scan (06/13/17) revealed 3 mm Left UVJ stone - no stones in either kidney This visit was conducted by telephone due to the ID- crisis. Prior to conducting our telephone visit, the patient was apprised of the risks, benefits and alternatives to telephone visits including but not limited to poor audio quality, interrupted visits due to technological limitations, delays in medical evaluation and treatment due to deficiencies or failures of equipment, failure of security protocols resulting in a breach of privacy of personal medical information and a lack of access to complete medical records resulting in not fully informed decisions. Also, because of the COVID-19 pandemic, it was not possible for the patient to sign the privacy regulations, HIPAA release and assignment of benefits forms. The patient was given the opportunity to ask questions about these policies and gave verbal acknowledgement and approval of these policies as well as to hold this meeting by telephone. Lastly, the patient agreed to allowing their medication history to be pulled from a national pharmacy database to facilitate and coordinate their care. Prior to conducting our telephone visit, the patient was apprised of the risks, benefits and alternatives to telephone visits including but not limited to poor audio quality, interrupted visits due to technological limitations, delays in medical evaluation and treatment due to deficiencies or failures of equipment, failure of security protocols resulting in a breach of privacy of personal medical information and a lack of access to complete medical records resulting in not fully informed. It was not possible for the patient to sign the privacy regulations, HIPAA release and assignment of benefits forms. The patient was given the opportunity to ask questions about these policies and gave verbal acknowledgement and approval of these policies as well as to hold this meeting by telephone. Lastly, the patient agreed to allowing their medication history to be pulled from a national pharmacy database to facilitate and coordinate their care. Koby Batista MD [address] [place] [address],[address], [place], [phone], [facility] 04/07/2023 10:30:16
[2023-07-21] MEDS: ACETAMINOPHEN 500 MG TABLET 1000 MG PO ×3 (11:00→23:40)
[2023-07-21 12:24] LABS: SARS Antigen* Negative (Negative)
[2023-07-21] MEDS: fentaNYL 100 MCG/2 ML inj IVP (12:32)
[2023-07-21] MEDS: MIDAZOLAM HCL 1 MG/ML inj IVP (12:32)
--- NOTE | 2023-07-21 12:42 | SUR.PREOP ---
TIME?OUT:?1232 PT/RN/MDA?VERIFICATION?OF?SURGICAL?SITE Left Knee,?PROCEDURE Nerve,?AND?CONSENT OBTAINED?PRIOR?TO?INVASIVE?PROCEDURE.
--- NOTE | 2023-07-21 12:46 | W.PM.H&PU ---
History & Physical Update History & Physical Update H&P Reviewed and patient assessed: No changes noted
[2023-07-21] MEDS: CEFAZOLIN 2 GM in 0.9 % SODIUM CHLORIDE Mini-bag 100 ML IVPB ×2 (12:53→18:14)
--- NOTE | 2023-07-21 13:21 | W.ANESCHARGE ---
Anesthesia Charges Start Date/Time Anesthesia Start Date: 07/21/23 Anesthesia Start Time: 12:43 Stop Date/Time Anesthesia Stop Date: 07/21/23 Anesthesia Stop Time: 15:10 Summary Extremes of Age - Over 70 or under 1: MDA
--- NOTE | 2023-07-21 13:21 | W.PM.NB ---
Nerve Block Nerve Block Time Seen by Provider: 12:39 Date Seen: 07/21/23 Type of block requested by surgeon for post-operative analgesia: adductor canal Side: left Time out performed: Yes Verification of patient name: Yes Verification of date of : Yes Site marking: site marked Name of person performing procedure: Cas Continuous monitoring Was continuous monitoring of O2 sat, B/P, money room teller, recorded every 15 minutes?: Yes Procedure Checklist: sterile prep, needles and gloves Ultrasound guided. Images saved: Yes Medications given in 5ml increments after negative aspiration: Ropivicaine %: 0.5 mL: 20 Needle gauge: 20 Decadron (mg): 10 Precedex (mcg): 25 Patient tolerated procedure well: Yes Additional comments: Needle noted adjacent to nerve Block Charges Block Charge (with Pro Fee): Femoral Nerve Use of Ultrasound Machine for Block: Yes- US Guidance/pain block
--- NOTE | 2023-07-21 13:22 | W.PM.NB ---
Nerve Block Nerve Block Time Seen by Provider: 12:39 Date Seen: 07/21/23 Type of block requested by surgeon for post-operative analgesia: geniculars Side: left Time out performed: Yes Verification of patient name: Yes Verification of date of : Yes Site marking: site marked Name of person performing procedure: Cas Continuous monitoring Was continuous monitoring of O2 sat, B/P, monitoring engineer, recorded every 15 minutes?: Yes Procedure Checklist: sterile prep, needles and gloves Medications given in 5ml increments after negative aspiration: Ropivicaine %: 0.5 mL: 9 Needle gauge: 25 Patient tolerated procedure well: Yes Block Charges Block Charge (with Pro Fee): Genicular Nerve Block Use of Ultrasound Machine for Block: No
--- NOTE | 2023-07-21 13:33 | CRLHL7_ITS ---
For Patients: As a result of the Century Cures Act, medical imaging exams and procedure reports are released immediately into your electronic medical record. You may view this report before your referring provider. If you have questions, please contact your health care provider. INDICATION: Left quadriceps tendon repair. TECHNIQUE: Two spot images of the left knee submitted. 6.1 seconds fluoro time provided. FINDINGS: Wire through the patella. Dictated by Olvin Stringer MD @ 07/22/2023 10:10:43 AM (Electronically Signed)
--- NOTE | 2023-07-21 14:32 | PM.ORPRC ---
Procedure Note Date of procedure: 07/21/23 Procedure: PREOPERATIVE DIAGNOSIS: 1. Left knee osteoarthrosis, primary, moderate-severe POSTOPERATIVE DIAGNOSIS: 1. Left distal quadriceps tendon rupture, closed, acute 2. Left knee osteoarthrosis, primary, moderate-severe PROCEDURE: 1. Left distal quadriceps tendon open repair 2. 74223 - intraoperative fluoroscopy up to 1 hour. SURGEON: Catracho Tavera MD. NATURAL [employer] TECHNICIAN: BRINADA Parham - Of note, an library clerical assistant was critical for this case to aid in patient positioning, tissue retraction, limb manipulation/positioning, and closure. ANESTHESIA: Spinal anesthetic EBL: 10 mL IMPLANTS: Arthrex 1.7 mm SutureTape (x2) TOURNIQUET: 65 minutes at 250 torr COMPLICATIONS: None evident INDICATIONS: The patient is a pleasant 78-year-old male who has complained of left thigh and left knee pain for multiple months. Initially, had some concern for quad muscle strain given his pain in the thigh region. He was able to do a straight leg raise initially with discomfort, but less and less discomfort upon follow-up and still with good strength. However, he continues to have lingering pain. Injections were provided in the knee joint which did seem to improve his pain but unfortunately was a temporary relief. Given the failure of nonoperative management, surgery was indicated. FINDINGS: Well initially, we made our incision for total knee replacement, upon incising the skin and subcutaneous layer, a large effusion was encountered. This was evacuated found the more superficial than this expected. I palpated the quad tendon region and found a palpable gap. The superficial quad tendon was still intact connected to the VMO all the way to the patella. However, there was a longitudinal split of the quad tendon near the vastus lateralis. In addition the deep portion of the quad tendon (the deeper 2/3 - 3/4 of the thickness) was torn and retracted proximally. The gap of the tendon to the patella was approximately 7 cm. DESCRIPTION OF PROCEDURE: Following a thorough discussion of risks, benefits, and alternatives consent was obtained and the left knee was marked. The patient was brought to the operating room and placed supine on the operating table. Induction of anesthesia was undertaken. 2 g IV Ancef was administered within 1 hr of incision preoperatively. Proper time-out was performed identifying proper patient, site, procedure. The operative extremity was prepped and draped in the appropriate sterile fashion using ChloraPrep after the patient was positioned supine with all bony prominences well padded. A longitudinal, anterior, midline skin incision was made starting approximately 3cm proximal to the superior pole of the patella and advanced distal near the mid patellar tendon. A seroma was immediately encountered as described. Upon then further probing and discussing the quad tendon pathology, I broke scrub and called the patient's . I tried to find her in 1st, but she left. After speaking with her, I did feel that a total knee replacement would not be prudent at this time. Instead, it will be martines to repairs quad tendon possible, and come back to the knee and arthritis issue in the future. She agreed. Therefore, we proceeded with a left open distal quad tendon repair. Thus, we completed the mobilization of the medial lateral flaps. And indeed further identified the distal quad tendon. It was retracted significantly as noted above. The distal tendon stump was debrided with a rongeur and curette. As was the proximal pole of the patella. Additionally, there is significant adhesions around the quad itself more proximally limiting our excursion of the distal quad tendon. We were able to bluntly dissect with finger as well as with Chatterjee scissors sharply but used in a blunt fashion to mobilize the tissue from the quad tendon. This improved our excursion. With prolonged traction like a fingertrap to take some tension of the quad, as well as proximal directed force to the patella, we were able to get tissue reapproximated and apposed against the superior pole patella bone. Attention was turned to the quadriceps tendon. 1.7 mm Suturetape was utilized in a running locking [place] technique. A second suture was placed in the same fashion leaving a total of 4 tails exiting the distal quadriceps tendon stump. 3 separate beath pins were then drilled from proximal to distal through the patella localizing their position with c-arm fluoroscopic imaging in both the AP and lateral planes. After confirming the pins to be intraosseous and parallel, small longitudinal slits were made in the patellar tendon on the beath pin down to bone to ensure no tissue interposition during the tying of the sutures. The suture tails were loaded in the pins and brought distally through the patella. One limb of each tail was brought deep to the tendon. It was not possible to create any knee flexion at this time due to the chronicity of his tendon tear. But with tension on the sutures, the patella was reapproximated to the distal quad tendon without gapping age after over-sewing some of this with some suture tape connecting the superficial quad tendon the previously was intact to the deeper quad tendon delaminated layer. We took creep out of the sutures, which were then tied. A #1 Stratafix PDS suture was then utilized to reapproximate the retinacular disruption in a running barbed suture technique. The knee was again placed through a range of motion and the repair remained stable. A thorough irrigation was performed with normal saline. Closure was then performed with 2-0 Vicryl and 4-0 Monocryl for subcutaneous and subcuticular layers, resepectively. Dressings were applied and the patient was awoken from anesthesia after the tourniquet deflated and transferred the PACU in stable condition. PLAN: 1. Weight bear as tolerated operative extremity with the brace locked in extension. 2. Ice. 3. Twice a day aspirin 4. Analgesics PRN (e.g. acetominophen, ibuprofen, oxycodone). 5. F/U with a PA visit in 2 weeks for wound check
--- NOTE | 2023-07-21 14:38 | P.IMCN_ITS ---
Date of Consult Patient: [facility] Patient Consult date: 07/21/23 Requesting Physician: Orthopedics Primary Care Provider: Adrien Hernandez MD Consult Narrative Reason for consult: Medical management Narrative: Chente Rubin is a 78 year old male past medical history significant for hypertension, CHF, sarcoidosis, osteoarthritis, atrial fibrillation status post ablation x2 and recent Watchman procedure is POD#0 s/p left quadriceps tendon repair. Patient was initially scheduled for a left total knee arthroplasty which was canceled and instead the quadricep tendon repair was completed. Postoperatively, patient reports 0/10 pain. Denies nausea. No vomiting. There have been no perioperative complications or nursing concerns reported. Estimated total blood loss documented as 10 ml. Updated and reviewed the active medical problems, past medical history, past surgical history, social history, allergies and medications in our electronic EMR. Review of Systems Narrative: REVIEW OF SYSTEMS: Complete review of systems performed and negative unless otherwise stated in HPI or below. PFSH [facility] Medical History Sarcoidosis ?D86.9 - Sarcoidosis, unspecified (ICD-10) Atrial fibrillation ?I48.91 - Unspecified atrial fibrillation (ICD-10) Chronic systolic CHF (congestive heart failure) ?I50.22 - Chronic systolic (congestive) heart failure (ICD-10) Prostate cancer ?C61 - Malignant neoplasm of prostate (ICD-10) Hypertension ?I10 - Essential (primary) hypertension (ICD-10) Pain of foot ?M79.673 - Pain in unspecified foot (ICD-10) Malaise ?R53.81 - Other malaise (ICD-10) Laceration of left side of forehead with complication ?S01.81XA - Laceration without foreign body of other part of head, initial encounter (ICD-10) Facial injury ?S09.93XA - Unspecified injury of face, initial encounter (ICD-10) 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) Chronic headache ?R51.9 - Headache, unspecified (ICD-10) ?G89.29 - Other chronic pain (ICD-10) Chronic daily headache ?R51.9 - Headache, unspecified (ICD-10) Atrial flutter with rapid ventricular response ?I48.92 - Unspecified atrial flutter (ICD-10) Atrial fibrillation with rapid ventricular response ?I48.91 - Unspecified atrial fibrillation (ICD-10) Methicillin resistant Staphylococcus aureus culture positive (03/31/19) ?Z22.322 - Carrier or suspected carrier of Methicillin resistant Staphylococcus aureus (ICD-10) Diverticulitis ?K57.92 - Diverticulitis of intestine, part unspecified, without perforation or abscess without bleeding (ICD-10) Surgical History H/O prostatectomy (10/2014) ?Z90.79 - Acquired absence of other genital organ(s) (ICD-10) History of elbow surgery (01/19/04) ?Z98.890 - Other specified postprocedural states (ICD-10) Status post arthroscopy of left shoulder (03/02/03) ?Z98.890 - Other specified postprocedural states (ICD-10) S/P ankle joint replacement ?Z96.669 - Presence of unspecified artificial ankle joint (ICD-10) H/O elbow surgery (~09/2017) ?Z98.890 - Other specified postprocedural states (ICD-10) Social History What is your current living situation?: I presently have a place to live In the past 12 months, utilities in danger of being shut off: no In past 12 months, lack of transportation kept you from medical appts, meetings, work, or getting things needed for daily living: no In the past 12 mos, have been you worried that your food would run out before you had money to buy more?: never true In the past 12 mos, the food you bought just didn't last and you didn't have money to buy more?: never true Smoking Status: Never smoker Do you use any of these nicotine containing products: None Second hand tobacco smoke exposure: No How often do you have a drink containing alcohol: never AUDIT-C Alcohol total score: 0 Non-prescribed substance use: denies use Caffeine: Yes How often does anyone, including family, friends and others, physically hurt you : never How often does anyone, including family, friends and others, insult or talk down to you: never How often does anyone, including family, friends and others, threaten you with harm: never How often does anyone, including family, friends and others, scream or curse at you: never service: No Meds Home Medications and Allergies Home Medications Medication Instructions Recorded Confirmed Type amlodipine 5 mg tablet 5 mg PO DAILY 07/10/22 07/21/23 History eszopiclone 1 mg tablet 1 mg PO HS 07/10/22 07/21/23 History evolocumab 140 mg/mL subcutaneous 140 mg subcut Q14D 07/10/22 07/21/23 History pen injector (Repatha SureClick) sotalol 80 mg tablet 40 mg PO BID 07/10/22 07/21/23 History testosterone enanthate 75 mg/0.5 75 mg subcut Q7D 07/10/22 07/21/23 History mL subcutaneous auto-injector (Xyosted) aspirin 81 mg capsule 81 mg PO DAILY 10/12/22 07/21/23 History celecoxib 100 mg capsule 100 mg PO BID PRN 07/17/23 07/21/23 History omeprazole 40 mg capsule,delayed 40 mg PO DAILY 07/21/23 07/21/23 History release Allergies Allergy/AdvReac Type Severity Reaction Status Date / Time atorvastatin Allergy Verified 07/21/23 10:23 lisinopril Allergy Verified 07/21/23 10:23 naproxen Allergy Nausea Verified 07/21/23 10:23 rosuvastatin Allergy Verified 07/21/23 10:23 Exam Narrative: Exam Narrative: PHYSICAL EXAM General: Pleasant, conversant, NAD HEENT: Normocephalic, atraumatic, sclera white, EOMI, oral mucosa moist Cardiovascular: RRR, S1S2. No pitting edema Pulmonary: CTA bilaterally without rhonchi, rales, expiratory wheezes. No d yspnea Abdominal: Soft, nondistended, NTTP Neurological: Alert, answering questions appropriately, cranial nerves intact, no focal findings Extremities: No gross joint deformity or swelling. Postoperative dressing and immobilizer in place, dry. Neurovascularly intact Skin: Warm, dry. Const: Vital Signs, click to edit/add: Vital Signs - 24 hr 07/21/23 10:33 07/21/23 12:32 07/21/23 12:37 Temperature 98.3 F Pulse Rate 74 70 70 Respiratory Rate 16 16 16 Blood Pressure 139/90 H 159/104 H 127/86 Pulse Oximetry 96 99 96 Oxygen Delivery Me thod Room Air Nasal Cannula Room Air Oxygen Flow Rate 2 2 Assessment and Plan Assessment and plan (1) Strain of left quadriceps: Problem comment: -POD#0 s/p left quadriceps tendon repair -perioperative management including pain management and anticoagulation per Orthopedic surgery -encourage postoperative pulmonary hygiene -PT OT consults -plan to discharge home tomorrow Status: Chronic (2) Osteoarthritis of left knee: Problem comment: -initially scheduled for left TKA today, this was canceled and patient underwent left quadriceps tendon repair instead Status: Chronic (3) Atrial fibrillation: Problem comment: -s/p ablation x2, Watchman procedure 09/2022, no longer on anticoagulation -continue sotalol Status: Chronic (4) Hypertension: Problem comment: -mildly hypotensive postoperatively as can be expected -resume home dose amlodipine upon discharge Status: Chronic (5) Chronic systolic CHF (congestive heart failure): Problem comment: -stable, monitor for fluid overload post operatively Status: Chronic Plan Hospital medicine team will sign off. Please contact our service with any questions or concerns.
--- NOTE | 2023-07-21 15:13 | W.ANESCHARGE ---
Anesthesia Charges Start Date/Time Anesthesia Start Date: 07/21/23 Anesthesia Start Time: 12:43 Stop Date/Time Anesthesia Stop Date: 07/21/23 Anesthesia Stop Time: 15:10
--- NOTE | 2023-07-21 19:19 | PC.NURSE ---
Patient remained stable post surgery. Vital signs intact on room air. Dressing intact with no drainage. Brace intact. Reports pain 3/10 which was managed by PRN tylenol. One urine void during shift. Tolerating intake.Able to communicate needs. at bedside.
[2023-07-21] MEDS: OXYCODONE 5 MG TABLET PO ×2 (19:34→23:40)
[2023-07-21] MEDS: ASPIRIN 81 MG TABLET EC PO (21:42)
[2023-07-21] MEDS: SENNOSIDES 1 TAB TABLET 2 TAB PO (21:42)
[2023-07-21] MEDS: SOTALOL HCL 80 MG TABLET 40 MG PO (21:43)
[2023-07-22 00:30] VITALS: BP 141/91; PULSE 85; RESP 16; TEMP 36.9; O2SAT 95
[2023-07-22] MEDS: OXYCODONE 5 MG TABLET PO ×4 (03:04→11:00)
[2023-07-22 03:05] VITALS: BP 133/91; PULSE 75; RESP 16; TEMP 36.7; O2SAT 94
[2023-07-22] MEDS: CEFAZOLIN 2 GM in 0.9 % SODIUM CHLORIDE Mini-bag 100 ML IVPB (03:10)
[2023-07-22] MEDS: OMEPRAZOLE 20 MG CAPSULE DR 40 MG PO (06:07)
[2023-07-22] MEDS: ACETAMINOPHEN 500 MG TABLET 1000 MG PO (06:08)
[2023-07-22 06:09] LABS: Hematocrit 45.1 % (37.0-53.0); Hemoglobin* 14.8 gm/dL (13.5-17.5); Immature Granulocytes Pct Auto 0.3 %; Lymphocytes Percent Auto 4.6 % (20-44); Mean Corpuscular HGB Conc 33 gm/dL (32-36); Mean Corpuscular Hemoglobin 31 pg (26-34); Mean Corpuscular Volume 95 fL (80-100); Monocytes Percent Auto 2.9 % (0.0-11.0); Neutrophils Percent Auto 92.2 % (42.0-72.0); Platelet Count* 211 K/uL (140-440); RDW Coefficient of Variation % 12.4 % (11.5-15.5); Red Blood Count 4.75 m/uL (4.30-5.90); White Blood Count* 11.86 K/uL (4.50-11.00)
[2023-07-22 06:15] LABS: Slide Review Reflex No
[2023-07-22 06:25] LABS: Potassium* 4.2 mmol/L (3.6-5.1); Sodium* 138 mmol/L (135-149)
[2023-07-22 06:28] LABS: Creatinine* 0.9 mg/dL (0.5-1.5); Est. Creatinine Clearance* 68.98; Estimated Glomerular Filt Rate 89 ml/min
[2023-07-22 06:29] LABS: Blood Urea Nitrogen* 17 mg/dL (7-30)
--- NOTE | 2023-07-22 07:35 | PC.NURSE ---
Pt alert and oriented x3. Afebrile. Pt reports 8/10 pain in left knee, pain managed with cryo cuff and both PRN and scheduled medications. Pt?s left knee dressing is CDI, and knee brace is in place. Pt is up SBA with walker and gait belt, tolerating a regular diet, and voiding. Pt slept intermittently throughout most of night.??
[2023-07-22] MEDS: SENNOSIDES 1 TAB TABLET 2 TAB PO (08:42)
[2023-07-22] MEDS: AMLODIPINE 5 MG TABLET PO (08:42)
[2023-07-22] MEDS: ASPIRIN 81 MG TABLET EC PO (08:42)
[2023-07-22 08:45] VITALS: BP 131/101; PULSE 89; RESP 16; RESP 18; TEMP 37.1; O2SAT 96
[2023-07-22] MEDS: SOTALOL HCL 80 MG TABLET 40 MG PO (09:15)
--- NOTE | 2023-07-22 10:25 | PM.ORPN ---
Subjective Subjective Date Seen: 07/22/23 Principal diagnosis: POD1 left distal quad tendon repair Interval history: Patient reports doing well. No acute events over night. Some discomfort lateral knee. Pain managed with scheduled and PRN medications, ice. DVT prophylaxis: 81 mg aspirin by mouth twice daily, SCDs, walking. He is weight bear as tolerated, with the left knee locked in extension via T scope brace. Denies fevers, chills, aches, N/V, CP, SOB/GARCIA, or lightheadedness. Ortho Exam Narrative Exam Narrative: -Patient appears comfortable; no apparent acute distress -Alert and oriented times 3 -Operative knee mildly swollen; soft tissues supple; no ecchymosis; no erythematous streaking Warmth appropriate - DIP joint extension -Surgical dressing clean, dry, intact; no drainage -Bilateral calfs soft; no significant swelling, edema, tenderness, erythema, discoloration, warmth, or palpable cords -2+ DP/PT pulses, intact dermatomes and myotomes distally (5/5 strength) Const Vital Signs, click to edit/add: Vital Signs - 24 hr 07/21/23 10:33 07/21/23 12:32 07/21/23 12:37 Temperature 98.3 F Pulse Rate 74 70 70 Pulse Rate [Pulse Oximeter] Respiratory Rate 16 16 16 Blood Pressure 139/90 H 159/104 H 127/86 Blood Pressure [Left Arm] Pulse Oximetry 96 99 96 Oxygen Delivery Method Room Air Nasal Cannula Room Air Oxygen Flow Rate 2 2 07/21/23 15:05 07/21/23 15:10 07/21/23 15:15 Temperature 98.0 F Pulse Rate 56 L 57 L 55 L Pulse Rate [Pulse Oximeter] Respiratory Rate 12 14 13 Blood Pressure 98/64 92/65 93/65 Blood Pressure [Left Arm] Pulse Oximetry 93 98 97 Oxygen Delivery Method OxyMask OxyMask OxyMask Oxygen Flow Rate 3 3 1 07/21/23 15:20 07/21/23 15:25 07/21/23 15:30 Temperature 98.1 F Pulse Rate 55 L 56 L 57 L Pulse Rate [Pulse Oximeter] Respiratory Rate 13 16 16 Blood Pressure 94/67 92/65 94/66 Blood Pressure [Left Arm] Pulse Oximetry 97 95 96 Oxygen Delivery Method OxyMask Room Air Room Air Oxygen Flow Rate 1 07/21/23 15:35 07/21/23 15:42 07/21/23 15:45 Temperature 97.8 F 95.7 F L Pulse Rate 56 L 56 L 56 L Pulse Rate [Pulse Oximeter] Respiratory Rate 15 18 Blood Pressure 95/63 Blood Pressure [Left Arm] 104/75 104/69 Pulse Oximetry 97 Oxygen Delivery Method Room Air Room Air Room Air Oxygen Flow Rate 07/21/23 16:00 07/21/23 16:00 07/21/23 16:15 Temperature 96.3 F L Pulse Rate 56 L Pulse Rate [Pulse Oximeter] 57 L Respiratory Rate 16 Blood Pressure Blood Pressure [Left Arm] 110/77 110/77 111/75 Pulse Oximetry 95 93 Oxygen Delivery Method Room Air Room Air Room Air Oxygen Flow Rate 07/21/23 16:30 07/21/23 17:00 07/21/23 19:35 Temperature 96.4 F L 97.8 F Pulse Rate Pulse Rate [Pulse Oximeter] 58 L 74 Respiratory Rate 16 16 Blood Pressure Blood Pressure [Left Arm] 121/84 117/78 139/96 H Pulse Oximetry 96 96 95 Oxygen Delivery Method Room Air Room Air Room Air Oxygen Flow Rate 07/21/23 20:35 07/21/23 21:30 07/21/23 22:30 Temperature 98.1 F 98.2 F 98.2 F Pulse Rate Pulse Rate [Pulse Oximeter] 76 78 82 Respiratory Rate 16 16 18 Blood Pressure Blood Pressure [Left Arm] 132/103 H 126/86 138/92 H Pulse Oximetry 97 95 98 Oxygen Delivery Method Room Air Room Air Room Air Oxygen Flow Rate 07/21/23 22:54 07/21/23 22:54 07/21/23 23:30 Temperature 98.3 F Pulse Rate Pulse Rate [Pulse Oximeter] 74 85 Respiratory Rate 18 Blood Pressure Blood Pressure [Left Arm] 139/94 H Pulse Oximetry 96 98 Oxygen Delivery Method Room Air Oxygen Flow Rate 07/22/23 00:30 07/22/23 03:05 Temperature 98.5 F 98.0 F Pulse Rate Pulse Rate [Pulse Oximeter] 85 75 Respiratory Rate 16 16 Blood Pressure Blood Pressure [Left Arm] 141/91 H 133/91 H Pulse Oximetry 95 94 Oxygen Delivery Method Room Air Room Air Oxygen Flow Rate Assessment and Plan Assessment and plan (1) Strain of left quadriceps: Problem details: -POD#1 s/p left quadriceps tendon repair -perioperative management including pain management and anticoagulation per Orthopedic surgery -encourage postoperative pulmonary hygiene -PT OT consults -plan to discharge home tomorrow Status: Chronic (2) Osteoarthritis of left knee: Problem details: -initially scheduled for left TKA today, this was canceled and patient underwent left quadriceps tendon repair instead Status: Chronic (3) Atrial fibrillation: Problem details: -s/p ablation x2, Watchman procedure 09/2022, no longer on anticoagulation -continue sotalol Status: Chronic (4) Hypertension: Problem details: -mildly hypotensive postoperatively as can be expected -resume home dose amlodipine upon discharge Status: Chronic (5) Chronic systolic CHF (congestive heart failure): Problem details: -stable, monitor for fluid overload post operatively Status: Chronic Plan - Complete 23 hour perioperative antibiotics. - PT/OT consult for education and assistance - spoke with therapists, will not allow straight leg raising, and patient will use assistive leg lift device when getting in and out of bed. Our clinic will order e-stim for patient. - Social work consult for discharge planning - Prescribed analgesics as needed - DVT prophylaxis: 81 mg aspirin by mouth twice daily, bilateral knee high Eliceo Hose stockings and SCDs - Anticipation is for discharge to home with spouse 07/22/2023 if the patient remains medically stable, pain is controlled, and they are safe with mobilization.
--- NOTE | 2023-07-22 11:50 | PC.NURSE ---
AFEBRILE. PATIENT REPORTED PAIN CONTROLLED WITH OXYCODONE AND TYLENOL. UP WITH A1, WALKER AND GAIT BELT WITH BRACE TO LEFT KNEE. SALINE LOCK DC'D. REVIEWED DC INSTRUCTIONS AND CRYOCUFF USE WITH PATIENT AND HIS . DENIED FURTHER QUESTIONS OR CONCERNS. PATIENT DC'D HOME VIA .
== END 2023-07-22 11:26 | disposition home or self-care (01) ==
LOC: OR 10:03 → MEDSURG 10:07
PROVIDERS: PCP Surgery; Visit Provider Orthopaedic Surgery Sports Medicine
PROC: (CPT 27447; principal; 2023-07-21 12:30)
DX: S76.112A Strain of left quadriceps muscle, fascia and tendon, initial encounter (principal); M17.12 Unilateral primary osteoarthritis, left knee; G89.18 Other acute postprocedural pain; I11.0 Hypertensive heart disease with heart failure; I50.22 Chronic systolic (congestive) heart failure; I48.92 Unspecified atrial flutter; I48.20 Chronic atrial fibrillation, unspecified; Z79.01 Long term (current) use of anticoagulants; D86.9 Sarcoidosis, unspecified
CPT/HCPCS: 27385; 01320; 36415; 64447; 64454; 73560; 76000; 76942; 82565; 84132; 84295; 84520; 85025; 87426; 87635; 97110; 97116; 97161; 97165; 97530; 97535; 99100; A9270; J0690; J1100; J2250; J2405; J2704; J2795; J3010; J7120

== ENCOUNTER 2023-11-27 09:45 | Outpatient (RCR) | payer MEDICARE, OTHER, SELFPAY ==
--- NOTE | 2023-07-25 12:53 | PT.OPEX ---
PT [facility] Outpatient Eval PT [facility] Outpatient Eval Start: 07/25/23 09:57 Freq: Status: Active Protocol: Document 07/25/23 12:26 [id number] (Rec: 07/25/23 12:48 [facility] [id number]) E-signed By Ngozi Mcneil PT Physical Therapy Outpatient Evaluation Insurance Information Recert Due Date 10/22/23 Medical Diagnosis LEFT QUAD TENDON REPAIR LEFT QUAD OA Treating Diagnosis LEFT KNEE WEAKNESS DIFFICULTY WALKING Referring MD PAVON Subjective Subjective PATIENT ARRIVED TODAY WITH BRACE POORLY PLACED AND AMB WITH FWW WBAT. BOTH HIM AND HIS HAVE MANY QUESTIONS REGARDING SYMPTOM MGMT, BRACE PLACEMENT, ANDREE HOSE, THE SURGICAL PROCEDURE, AND HOW BADLY THE TENDON WAS TORN. SHE STATES, I JUST FEEL LIKE I'M REALLY IN THE DARK RIGHT NOW ABOUT WHAT TODAY. Pain Comments -10/14 Date of Last Physician Visit 07/22/23 Date of Next Physician Visit 08/05/23 Date of Surgery (If applicable) 07/21/23 Current Work Status Retired Preferred Name SHANICE Precautions Treatment Precautions/Contraindications 07/25/23: NO ACTIVE KNEE EXT, SLR; T SCOPE BRACE TO WORN UNLESS BATHING LOCKED AT 0 DEGREES EXT Weight Bearing Status Weight Bear as Tolerated Therapy Limitations/Systems Review Hearing Assessment Assessment/Impression PATIENT IS A [address] PAVON TO EVAL AND TREAT LEFT KNEE QUAD TEND REPAIR (07/21/23); PMHX INCLUDES BUT NOT LIMITED TO RECENT TIBIOTALAR CALCANEAL FUSION (ANKLE REPLACEMENT) (11/11/22),RIGHT BICEPS REPAIR (15 YRS), ELBOW SX (2003, 2017), AFIB RECENT WATCHMAN DEVICE (), LEFT SHOULDER SCOPE ( 2002),GERD, DIVERTICULITIS, REMOTE H/O OF CA (2014), SYMMETRIC PUPILS D/T GOLF BALL TRAUMA (2019), MULTIJOINT OA, R/L HAMMER TOE SURGERY. PATIENT LIVES W/HIS IN A MULTISTORY HOME W/15 STEPS TO ENTER W/RAILING. PATIENT IS ACCOMPANIED BY HIS AND BOTH HAVE MANY QUESTIONS TODAY THEY HAD PLANNED THAT HE WOULD BE GETTING A TKA BUT, UPON OPENING KNEE, A MAJOR QUAD TENDON TEAR WAS DISCOVERED. HE IS WEARING HIS T SCOPE BRACE NOTING THE HINGE COMPONENT DISTAL TO THE KNEE AND HIS NON-REMOVAL BANDAGE IS INTACT WITH MIN EDEMA NOTED ABOUT THE PROXIMAL BORDER OF THE KNEE. WE DISCUSSED, AT LENGTH, HIS RESTRICTION OF ABSOLUTELY NO KNEE EXT AND TO WEAR HIS BRACE AT ALL TIMES. WE DISCUSSED THE DVT PRECAUTIONS AND THE INTERVENTIONS TO DETER THE LIKELIHOOD. WE PRACTICED DONNING AND DOFFING ANDREE HOSE WITH AND INSTRUCTED HIM TO LEAVE THEM ON AFTER HIS SHOWER AT NIGHT FOR THE EASE D /T DIFFICULTY IS HAVING PERFORMING THE TASK. PATIENT WILL HAVE A TENS UNIT FOR MUSCLE RE-ED DELIVERED EITHER DURING THERAPY OR AT HOME SOON INSURANCE APPROVES. TODAY, WE BEGAN MM RE-ED TO ALLOW HIM TO FEEL THE EFFECTS OF THE MODALITY WELL ANSWER THE MANY QUESTIONS THAT FOLLOWED. WE PRACTICED MOVING FROM SIT<>SUPINE W/O MM ACTIVATION USING STRAP AND AN ALTERNATE METHOD OF GRABBING THE LAST STRAP OF BRACE. WE DISCUSSED, AT LENGTH, THE AMOUNT OF DAMAGE AND THE SURGICAL REPAIR PERFORMED WITH THE GENERAL LENGTH OF TIME TO HEAL. LASTLY, WE DISCUSSED USE OF ICE AND PO MEDS FOR SYMPTOM MGMT. HE LEFT THE CLINIC WITH INSTRUCTIONS TO PERFORM THE EXERCISES PERFORMED TODAY (AP, QS, GS) ONLY AND WILL CONSULT WITH ORTHO REGARDING ANY PROM FOR KNEE FLEX WHICH IS TRADITIONALLY 0-30 DEGREES. HE IS APPROPRIATE FOR SKILLED PHYSICAL THERAPY TO ADDRESS SYMPTOM MGMT, ROM, STRENGTHENING, GT, AND BALANCE TRAINING ALLOWED. Primary Functional Limitations ADL'S TRANSFERS AMB STAIRS IADL'S Plan of Care Rehabilitation Potential Good Physical Therapy Goals 1. PATIENT WILL DECREASE PAIN TO LEST THAN/EQUAL TO 3/10 WITH DAILY ACTIVITIES AND WITH THE PROGRESSION OF PHYSICAL THERAPY OVER THEN NEXT 4-6 WEEKS. 2. PATIENT WILL IMPROVE LEFT KNEE ROM PER RESTRICTION TO WFL OVER THEN EXT 6-8 WEEKS FOR RETURN TO FUNCTIONAL KNEE ROM AND IMPROVED GAIT MECHANICS 3. PATIENT WILL IMPROVE LEFT KNEE/LE MOBILITY AND STRENGTH OVER THE NEXT 6-8 WEEKS FOR INDEPENDENT TRANSFERS WITH EASE, RETURN TO LIMITED COMMUNITY AMB, EXTENDED STANDING FOR ADL'S/HOUSEHOLD ACTIVITIES, AND IMPROVED GAIT MECHANICS WITH/WITHOUT AN AD. 4.PATIENT WILL BE INDEPENDENT WITH HIS HEP WITHIN 10-12 WEEKS FOR PROGRESSION OF THE ABOVE GOALS, ONGOING SELF MGMT OF PAIN/SWELLING, AND ONGOING SELF IMPROVEMENTS. Coordination/Communication With Referral Source Treatment Plan/Direct Interventions Electrical Stimulation,Gait Training,Ice/Cold/ Vasopneumatic,Joint Mobilization,Manual Therapy, Neuromuscular Re-ed,Orthotics/ Braces,Self-Care/Home Management,Therapeutic Activities,Therapeutic Exercises Frequency/Duration 2 VISITS/WEEK FOR 12-16 WEEKS Patient Will Be Discharged From Therapy Completion of LTG(s), Independently Progressing Evaluation Billing PT Eval No Charge No Complexity Moderate Certification Information Initial Certification Date 07/25/23 Ending Certification Date 10/22/23 Provider Signature Shows Agreement With POC & Medical Necessity Physician Signature & Date Requested Please Sign/Date Here Physician Comment/Change : Physician NPI Number #
== END 2023-12-03 15:33 | disposition home or self-care (01) ==
PROVIDERS: PCP Surgery; Visit Provider Orthopaedic Surgery Sports Medicine
DX: M17.12 Unilateral primary osteoarthritis, left knee (principal); Z96.652 Presence of left artificial knee joint; Z51.89 Encounter for other specified aftercare
CPT/HCPCS: 97110; 97112; 97116; 97162; A9270; J2250; J3010

== ENCOUNTER 2024-05-21 06:54 | Outpatient (CLI) | payer MEDICARE, OTHER, SELFPAY ==
--- NOTE | 2024-05-21 07:15 | CRLHL7_ITS ---
For Patients: As a result of the Century Cures Act, medical imaging exams and procedure reports are released immediately into your electronic medical record. You may view this report before your referring provider. If you have questions, please contact your health care provider. INDICATION: Low back pain. COMPARISON: 05/13/2024. Technique Sagittal T1, T2, and STIR sequences. Axial T1 and T2 weighted sequences. FINDINGS: Grade 1 anterolisthesis of L5 on S1 measures approximately 4 mm. Otherwise, normal alignment. No fractures. No vertebral body loss of height. Bilateral pars defects of L5. No suspicious osseous lesions. Normal conus terminates at L1. T12-L1 L1-2 L2-3: No spinal canal neural foraminal narrowing. L3-4: Disc generation posted disc bulge. Mild narrowing of spinal canal. No neural foraminal narrowing. Mild facet arthropathy. L3-4: Disc degeneration. Modic type 2 endplate changes. Diffuse disc bulge. Mild narrowing of spinal canal. Mild right and moderate left neural foraminal narrowing. Mild facet arthropathy. L5-S1: Disc degeneration and posterior disc bulge. No narrowing of spinal canal. No vania impingement of the traversing S1 nerve roots. Mild narrowing of the bilateral foramina. Degenerative changes of the SI joints. IMPRESSION: 1. Grade 1 anterolisthesis of L5 on S1. Bilateral pars defects of L5. Otherwise normal alignment. No fracture 2. Lumbar spondylosis 3. At L3-4, mild narrowing of the spinal canal. Moderate narrowing of the left neural foramen 4. At L5-S1, mild narrowing of the bilateral neural foramina Dictated by Tony Berkowitz MD @ 05/22/2024 2:41:24 PM (Electronically Signed)
== END 2024-05-21 06:55 | disposition home or self-care (01) ==
LOC: MRI 06:55
PROVIDERS: PCP Surgery; Visit Provider Family Medicine
DX: M54.50 Low back pain, unspecified (principal); M47.896 Other spondylosis, lumbar region; M51.26 Other intervertebral disc displacement, lumbar region; M51.27 Other intervertebral disc displacement, lumbosacral region; M79.605 Pain in left leg; M48.061 Spinal stenosis, lumbar region without neurogenic claudication
CPT/HCPCS: 72148

== ENCOUNTER 2024-06-22 07:27 | Outpatient (CLI) | payer MEDICARE, OTHER, SELFPAY | END 2024-06-22 07:28 | disposition home or self-care (01) | LOC: INJ CL 07:27 | PROVIDERS: PCP Surgery; Visit Provider Family Medicine | DX: M54.16 Radiculopathy, lumbar region (principal); M51.369 Other intervertebral disc degeneration, lumbar region without mention of lumbar back pain or lower extremity pain | CPT/HCPCS: 64483; J1100; Q9966 ==

== ENCOUNTER 2024-07-24 16:59 | Emergency (ER) | payer MEDICARE, OTHER, SELFPAY ==
[2024-07-24] VITALS (23 sets, daily range): BP systolic 122–156; BP diastolic 87–112; PULSE 65–144; RESP 12–23; TEMP 36.6; O2SAT 96–100; BMI 27.8
--- NOTE | 2024-07-24 17:25 | ED_ITS ---
HPI - Arrhythmia/Palpitations General Time Seen by Provider: 17:25 <Maikol Griffin MD - Last Filed: 07/24/24 20:18> Date Seen: 07/24/24 <Maikol Griffin MD - Last Filed: 07/24/24 20:18> Chief Complaint: Arrhythmia/Palpitations <Maikol Griffin MD - Last Filed: 07/24/24 20:18> Stated Complaint: a-fib acting up <Maikol Griffin MD - Last Filed: 07/24/24 20:18> Time Seen by Provider: 07/24/24 17:01 <Maikol Griffin MD - Last Filed: 07/24/24 20:18> Source: patient, RN notes reviewed and old records reviewed <Maikol Griffin MD - Last Filed: 07/24/24 20:18> Mode of arrival: ambulatory <Maikol Griffin MD - Last Filed: 07/24/24 20:18> Limitations: no limitations <Maikol Griffin MD - Last Filed: 07/24/24 20:18> History of Present Illness HPI narrative: 79-year-old male with history of paroxysmal atrial fibrillation presents with concern for atrial fibrillation. Patient actually presents saying he feels anxious and had poor sleep last night, has a monitor that indicated that he may be in atrial fibrillation. He denies chest pain, shortness of breath, lightheadedness, lower extremity swelling. He notes that he just feels kind of crummy but no specific other concerns. No fevers or chills, denies nausea, vomiting, diarrhea. Takes sotalol for his atrial fibrillation and says he has been taking that as prescribed. He does not think he has had an episode of atrial fibrillation in the past couple of years but it sounds like he may not become overly symptomatic. <Maikol Griffin MD - Last Filed: 07/24/24 20:18> Related Data Home Medications: Home Medications ?Medication ?Instructions ?Recorded ?Confirmed amlodipine 5 mg tablet 5 mg PO DAILY 07/10/22 07/24/24 eszopiclone 1 mg tablet 1 mg PO HS 07/10/22 07/24/24 evolocumab 140 mg/mL subcutaneous 140 mg subcut Q14D 07/10/22 07/24/24 pen injector (Jarod Rodriguez) testosterone enanthate 75 mg/0.5 75 mg subcut Q7D 07/10/22 07/24/24 mL subcutaneous auto-injector (Xyosted) aspirin 81 mg capsule 81 mg PO DAILY 10/12/22 07/24/24 celecoxib 100 mg capsule 100 mg PO BID PRN 07/17/23 07/24/24 omeprazole 40 mg capsule,delayed 40 mg PO DAILY 07/21/23 07/24/24 release Previous Rx's ?Medication ?Instructions ?Recorded amiodarone 200 mg tablet 200 mg PO DAILY #30 tabs 07/24/24 <Maikol Griffin MD - Last Filed: 07/24/24 20:18> Allergies/Adverse Reactions: Allergies Allergy/AdvReac Type Severity Reaction Status Date / Time latex Allergy Unknown Verified 07/24/24 17:08 atorvastatin Allergy Verified 07/24/24 17:08 lisinopril Allergy Verified 07/24/24 17:08 naproxen Allergy Nausea Verified 07/24/24 17:08 rosuvastatin Allergy Verified 07/24/24 17:08 <Maikol Griffin MD - Last Filed: 07/24/24 20:18> [facility] Medical History: Medical History (Updated 07/24/24 @ 20:04 by Maikol Griffin MD) Health care directive on file ?Z78.9 - Other specified health status (ICD-10) Sarcoidosis ?D86.9 - Sarcoidosis, unspecified (ICD-10) Atrial fibrillation ?I48.91 - Unspecified atrial fibrillation (ICD-10) Chronic systolic CHF (congestive heart failure) ?I50.22 - Chronic systolic (congestive) heart failure (ICD-10) Prostate cancer ?C61 - Malignant neoplasm of prostate (ICD-10) Hypertension ?I10 - Essential (primary) hypertension (ICD-10) Pain of foot ?M79.673 - Pain in unspecified foot (ICD-10) Malaise ?R53.81 - Other malaise (ICD-10) Laceration of left side of forehead with complication ?S01.81XA - Laceration without foreign body of other part of head, initial encounter (ICD-10) Facial injury ?S09.93XA - Unspecified injury of face, initial encounter (ICD-10) 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) Chronic headache ?R51.9 - Headache, unspecified (ICD-10) ?G89.29 - Other chronic pain (ICD-10) Chronic daily headache ?R51.9 - Headache, unspecified (ICD-10) Atrial flutter with rapid ventricular response ?I48.92 - Unspecified atrial flutter (ICD-10) Atrial fibrillation with rapid ventricular response ?I48.91 - Unspecified atrial fibrillation (ICD-10) Methicillin resistant Staphylococcus aureus culture positive (03/31/19) ?Z22.322 - Carrier or suspected carrier of Methicillin resistant Staphylococcus aureus (ICD-10) Diverticulitis ?K57.92 - Diverticulitis of intestine, part unspecified, without perforation or abscess without bleeding (ICD-10) <Maikol Griffin MD - Last Filed: 07/24/24 20:18> Surgical History: Surgical History Status post tendon repair (07/21/23) ?Z98.890 - Other specified postprocedural states (ICD-10) H/O prostatectomy (10/2014) ?Z90.79 - Acquired absence of other genital organ(s) (ICD-10) History of elbow surgery (01/19/04) ?Z98.890 - Other specified postprocedural states (ICD-10) Status post arthroscopy of left shoulder (03/02/03) ?Z98.890 - Other specified postprocedural states (ICD-10) S/P ankle joint replacement ?Z96.669 - Presence of unspecified artificial ankle joint (ICD-10) H/O elbow surgery (~09/2017) ?Z98.890 - Other specified postprocedural states (ICD-10) <Maikol Griffin MD - Last Filed: 07/24/24 20:18> Social History: Social History Narrative: -Kristen What is your current living situation?: I presently have a place to live In the past 12 months, utilities in danger of being shut off: no In past 12 months, lack of transportation kept you from medical appts, meetings, work, or getting things needed for daily living: no In the past 12 mos, have been you worried that your food would run out before you had money to buy more?: never true In the past 12 mos, the food you bought just didn't last and you didn't have money to buy more?: never true Smoking Status: Never smoker Do you use any of these nicotine containing products: None Second hand tobacco smoke exposure: No How often do you have a drink containing alcohol: never AUDIT-C Alcohol total score: 0 Non-prescribed substance use: denies use Caffeine: Yes How often does anyone, including family, friends and others, physically hurt you : never How often does anyone, including family, friends and others, insult or talk down to you: never How often does anyone, including family, friends and others, threaten you with harm: never How often does anyone, including family, friends and others, scream or curse at you: never service: No <Maikol Griffin MD - Last Filed: 07/24/24 20:18> Exam Narrative: Exam Narrative: General: Well-developed and well-nourished, no acute distress Head: Atraumatic and normocephalic Eyes: Pupils are equal reactive, extraocular motions intact, conjunctiva clear ENT: External nose and ears are normal, posterior pharynx without erythema or exudate Neck: No midline cervical tenderness, full spontaneous range of motion the neck, trachea midline, no adenopathy Heart: Heart with irregular rhythm but regular rate, 5/6 systolic murmur Lungs: Clear to auscultation bilaterally without wheezes or crackles Abdomen: Soft, nontender, nondistended with active bowel sounds Musculoskeletal: No tenderness, deformity, or edema Neurologic: Awake, alert, and oriented x3, no gross focal neurologic deficits, cranial nerves intact as tested Psych: Mood and affect are appropriate Skin: No rashes <Maikol Griffin MD - Last Filed: 07/24/24 20:18> Const: Vital Signs, click to edit/add: Vital Signs - 24 hr 07/24/24 17:09 07/24/24 17:35 07/24/24 17:40 Temperature 98 F Pulse Rate Pulse Rate [Pulse Oximeter] 89 Respiratory Rate 18 Blood Pressure Blood Pressure [Ri ght Upper Arm] 156/101 H Pulse Oximetry 98 98 96 Oxygen Delivery Me thod Room Air Oxygen Flow Rate 07/24/24 17:45 07/24/24 18:21 07/24/24 18:22 Temperature Pulse Rate 100 Pulse Rate [Pulse Oximeter] Respiratory Rate Blood Pressure Blood Pressure [Ri ght Upper Arm] Pulse Oximetry 97 97 96 Oxygen Delivery Me thod Oxygen Flow Rate 07/24/24 18:30 07/24/24 18:32 07/24/24 18:40 Temperature Pulse Rate Pulse Rate [Pulse Oximeter] Respiratory Rate Blood Pressure Blood Pressure [Ri ght Upper Arm] Pulse Oximetry 97 98 96 Oxygen Delivery Me thod Oxygen Flow Rate 07/24/24 18:42 07/24/24 18:45 07/24/24 18:50 Temperature Pulse Rate 135 H Pulse Rate [Pulse Oximeter] Respiratory Rate Blood Pressure Blood Pressure [Ri ght Upper Arm] Pulse Oximetry 97 96 98 Oxygen Delivery Me thod Room Air Oxygen Flow Rate 07/24/24 19:17 07/24/24 19:18 07/24/24 19:22 Temperature Pulse Rate 139 H 138 H 139 H Pulse Rate [Pulse Oximeter] Respiratory Rate 18 18 17 Blood Pressure 130/112 H 139/108 H Blood Pressure [Ri ght Upper Arm] Pulse Oximetry 98 100 99 Oxygen Delivery Me thod Room Air Room Air Oxygen Flow Rate 07/24/24 19:27 07/24/24 19:30 07/24/24 19:30 Temperature Pulse Rate 144 H 69 Pulse Rate [Pulse Oximeter] Respiratory Rate 19 16 Blood Pressure 140/111 H Blood Pressure [Ri ght Upper Arm] Pulse Oximetry 100 100 Oxygen Delivery Me thod Room Air Nasal Cannula Oxygen Flow Rate 2 07/24/24 19:32 07/24/24 19:37 07/24/24 19:42 Temperature Pulse Rate 66 67 66 Pulse Rate [Pulse Oximeter] Respiratory Rate 18 20 17 Blood Pressure 155/107 H 139/89 133/90 H Blood Pressure [Ri ght Upper Arm] Pulse Oximetry 99 97 98 Oxygen Delivery Me thod Room Air Room Air Room Air Oxygen Flow Rate 07/24/24 19:45 07/24/24 19:52 Temperature Pulse Rate 65 70 Pulse Rate [Pulse Oximeter] Respiratory Rate 12 23 Blood Pressure 122/87 Blood Pressure [Ri ght Upper Arm] Pulse Oximetry 98 98 Oxygen Delivery Me thod Oxygen Flow Rate <Maikol Griffin MD - Last Filed: 07/24/24 20:18> Vital Signs, click to edit/add: Vital Signs - 24 hr 07/24/24 17:09 07/24/24 17:35 07/24/24 17:40 Temperature 98 F Pulse Rate Pulse Rate [Pulse Oximeter] 89 Respiratory Rate 18 Blood Pressure Blood Pressure [Ri ght Upper Arm] 156/101 H Pulse Oximetry 98 98 96 Oxygen Delivery Me thod Room Air Oxygen Flow Rate 07/24/24 17:45 07/24/24 18:21 07/24/24 18:22 Temperature Pulse Rate 100 Pulse Rate [Pulse Oximeter] Respiratory Rate Blood Pressure Blood Pressure [Ri ght Upper Arm] Pulse Oximetry 97 97 96 Oxygen Delivery Me thod Oxygen Flow Rate 07/24/24 18:30 07/24/24 18:32 07/24/24 18:40 Temperature Pulse Rate Pulse Rate [Pulse Oximeter] Respiratory Rate Blood Pressure Blood Pressure [Ri ght Upper Arm] Pulse Oximetry 97 98 96 Oxygen Delivery Me thod Oxygen Flow Rate 07/24/24 18:42 07/24/24 18:45 07/24/24 18:50 Temperature Pulse Rate 135 H Pulse Rate [Pulse Oximeter] Respiratory Rate Blood Pressure Blood Pressure [Ri ght Upper Arm] Pulse Oximetry 97 96 98 Oxygen Delivery Me thod Room Air Oxygen Flow Rate 07/24/24 19:17 07/24/24 19:18 07/24/24 19:22 Temperature Pulse Rate 139 H 138 H 139 H Pulse Rate [Pulse Oximeter] Respiratory Rate 18 18 17 Blood Pressure 130/112 H 139/108 H Blood Pressure [Ri ght Upper Arm] Pulse Oximetry 98 100 99 Oxygen Delivery Me thod Room Air Room Air Oxygen Flow Rate 07/24/24 19:27 07/24/24 19:30 07/24/24 19:30 Temperature Pulse Rate 144 H 69 Pulse Rate [Pulse Oximeter] Respiratory Rate 19 16 Blood Pressure 140/111 H Blood Pressure [Ri ght Upper Arm] Pulse Oximetry 100 100 Oxygen Delivery Me thod Room Air Nasal Cannula Oxygen Flow Rate 2 07/24/24 19:32 07/24/24 19:37 07/24/24 19:42 Temperature Pulse Rate 66 67 66 Pulse Rate [Pulse Oximeter] Respiratory Rate 18 20 17 Blood Pressure 155/107 H 139/89 133/90 H Blood Pressure [Ri ght Upper Arm] Pulse Oximetry 99 97 98 Oxygen Delivery Me thod Room Air Room Air Room Air Oxygen Flow Rate 07/24/24 19:45 07/24/24 19:52 Temperature Pulse Rate 65 70 Pulse Rate [Pulse Oximeter] Respiratory Rate 12 23 Blood Pressure 122/87 Blood Pressure [Ri ght Upper Arm] Pulse Oximetry 98 98 Oxygen Delivery Me thod Oxygen Flow Rate <Lynda Parisi MD - Last Filed: 07/24/24 20:18> Course Course ED Course: Reviewed prior cardiology/thoracic surgery visit from June 10 which was follow-up for aortic stenosis and aortic aneurysm, at that time felt to have moderate aortic stenosis and ascending aneurysm diameter 44 mm based on CTA from April 2023, with plan for repeat echocardiogram and CTA in 12 months for surveillance. Also reviewed procedure report from September 2022 when a Watchman was placed. Patient presents today with concern for atrial fibrillation. Says he slept poorly last night and has felt anxious, thinks this may be a symptom of atrial fibrillation, but he is otherwise asymptomatic. On exam here, he is in rate controlled atrial fibrillation. Denies any obvious triggers for this including poor sleep, caffeine use, missed doses of medications, recent illness. Labs ordered to evaluate for possible underlying cause for patient to have gone into atrial fibrillation and consider electrical cardioversion. Fluids and IV magnesium ordered. Or EKG ordered and independently interpreted by me performed at 5:09 p.m. demonstrates atrial fibrillation with rate 102, QTC 437, no acute ischemic changes. Compared to prior of March 2024, atrial fibrillation has replaced sinus rhythm <Maikol Griffin MD - Last Filed: 07/24/24 20:18> Reevaluation(s) Time of Reevaluation #1: 18:33 <Maikol Griffin MD - Last Filed: 07/24/24 20:18> Reevaluation #1: Labs ordered and independently interpreted by me with normal basic metabolic panel, normal magnesium, normal CBC, troponin 0.04 which is top end of normal and will be rechecked. Patient was given metoprolol IV, however now has a more regular tachycardia the likely is atrial flutter, repeat EKG is performed and consent for procedure all sedation and cardioversion signed. Due to moderate to severe aortic stenosis and preload dependence, etomidate will be used for sedation Repeat EKG independently interpreted by me demonstrates atrial fibrillation with RVR, no acute ischemic changes, QTC 529, compared to prior earlier today, rapid ventricular response is now present Care discussed with Dr. Shukla, cardiology who agrees with plan for electrical cardioversion, initially recommending amiodarone post conversion but will discuss after repeat EKG. <Maikol Griffin MD - Last Filed: 07/24/24 20:18> Time of Reevaluation #2: 19:41 <Maikol Griffin MD - Last Filed: 07/24/24 20:18> Reevaluation #2: Procedural sedation for electrical cardioversion. The risks and benefits discussed with the patient, written consent obtained. Patient was attached to electronic device monitor, oxygen by nasal cannula, pulse oximetry, end-tidal CO2, emergent airway and critical care supplies immediately available. After time-out performed, etomidate 10 mg IV was given. This resulted in adequate sedation and cardioversion was performed. Patient recovered, was awake and alert after recovery. No complications, the lowest oxygen saturation was 98%. Total time in attendance 12 minutes. Postprocedure EKG independently interpreted by me with normal sinus rhythm rate 64, DE 158, QTC 427, no acute ischemic changes, similar to prior of March 2024. Dr. Lynda Parisi: I was asked to assist with cardioversion of this patient. procedural sedation was done by Dr. Griffin. I assisted with the cardioversion. Patient was cardioverted on the 1st attempt with synchronized shock of 150 joules. he tolerated this without difficulty. <Maikol Griffin MD - Last Filed: 07/24/24 20:18> I was asked to assist with cardioversion of this patient. procedural sedation was done by Dr. Griffin. I assisted with the cardioversion. Patient was cardioverted on the 1st attempt with synchronized shock of 150 joules. he tolerated this without difficulty. <Lynda Parisi MD - Last Filed: 07/24/24 20:18> Time of Reevaluation #3: 20:00 <Maikol Griffin MD - Last Filed: 07/24/24 20:18> Reevaluation #3: Care discussed with Dr. Shukla, I did send copies of patient's EKG to him to review. Recommends stopping sotalol tomorrow, starting amiodarone on Friday, cardiology clinic will call. Updated patient and spouse with findings and plan, stable for discharge. Remains in sinus rhythm. <Maikol Griffin MD - Last Filed: 07/24/24 20:18> Vital Signs Vital signs: Initial Vital Signs Temperature 98 F 07/24/24 17:09 Temperature Source Temporal Artery Scan 07/24/24 17:09 Pulse Rate 89 07/24/24 17:09 Respiratory Rate 18 07/24/24 17:09 Blood Pressure 156/101 H 07/24/24 17:09 Blood Pressure Mean 119 H 07/24/24 17:09 Blood Pressure Position Sitting 07/24/24 17:09 Pulse Oximetry 98 07/24/24 17:09 Oxygen Delivery Method Room Air 07/24/24 17:09 Vital Signs Temperature 98 F 07/24/24 17:09 Pulse Rate 89 07/24/24 17:09 Respiratory Rate 18 07/24/24 17:09 Blood Pressure 156/101 H 07/24/24 17:09 Pulse Oximetry 98 07/24/24 17:09 Oxygen Delivery Method Room Air 07/24/24 17:09 Temperature 98 F 07/24/24 17:09 Pulse Rate 70 07/24/24 19:52 Respiratory Rate 23 07/24/24 19:52 Blood Pressure 122/87 07/24/24 19:52 Pulse Oximetry 98 07/24/24 19:52 Oxygen Delivery Method Room Air 07/24/24 19:42 Oxygen Flow Rate 2 07/24/24 19:30 <Maikol Griffin MD - Last Filed: 07/24/24 20:18> Initial Vital Signs Temperature 98 F 07/24/24 17:09 Temperature Source Temporal Artery Scan 07/24/24 17:09 Pulse Rate 89 07/24/24 17:09 Respiratory Rate 18 07/24/24 17:09 Blood Pressure 156/101 H 07/24/24 17:09 Blood Pressure Mean 119 H 07/24/24 17:09 Blood Pressure Position Sitting 07/24/24 17:09 Pulse Oximetry 98 07/24/24 17:09 Oxygen Delivery Method Room Air 07/24/24 17:09 Vital Signs Temperature 98 F 07/24/24 17:09 Pulse Rate 89 07/24/24 17:09 Respiratory Rate 18 07/24/24 17:09 Blood Pressure 156/101 H 07/24/24 17:09 Pulse Oximetry 98 07/24/24 17:09 Oxygen Delivery Method Room Air 07/24/24 17:09 Temperature 98 F 07/24/24 17:09 Pulse Rate 70 07/24/24 19:52 Respiratory Rate 23 07/24/24 19:52 Blood Pressure 122/87 07/24/24 19:52 Pulse Oximetry 98 07/24/24 19:52 Oxygen Delivery Method Room Air 07/24/24 19:42 Oxygen Flow Rate 2 07/24/24 19:30 <Lynda Parisi MD - Last Filed: 07/24/24 20:18> Medications Administered Medications: Discontinued Medications Generic Name Dose Route Start Last Admin Trade Name Freq PRN Reason Stop Dose Admin Etomidate 10 mg 07/24/24 18:42 07/24/24 19:26 Etomidate 2 Mg/Ml Inj IVP 07/24/24 18:43 10 mg ONCE ONE Administration Sodium Chloride 500 mls @ 500 mls/hr 07/24/24 17:39 07/24/24 18:45 0.9 % Sodium Chloride 500 Ml IV 07/24/24 18:38 Infused .Q1H ONE Infusion Magnesium Sulfate/Dextrose 1 gm in 100 mls @ 100 mls/hr 07/24/24 17:40 07/24/24 19:20 Magnesium Sulf 1 G/100 Ml-D5w IVPB 07/24/24 18:39 100 mls/hr ONCE ONE Administration Metoprolol Tartrate 2.5 mg 07/24/24 18:15 07/24/24 18:30 Metoprolol Tartrate 1 Mg/Ml Inj IVP 07/24/24 18:16 2.5 mg ONCE ONE Administration <Maikol Griffin MD - Last Filed: 07/24/24 20:18> Discontinued Medications Generic Name Dose Route Start Last Admin Trade Name Freq PRN Reason Stop Dose Admin Etomidate 10 mg 07/24/24 18:42 07/24/24 19:26 Etomidate 2 Mg/Ml Inj IVP 07/24/24 18:43 10 mg ONCE ONE Administration Sodium Chloride 500 mls @ 500 mls/hr 07/24/24 17:39 07/24/24 18:45 0.9 % Sodium Chloride 500 Ml IV 07/24/24 18:38 Infused .Q1H ONE Infusion Magnesium Sulfate/Dextrose 1 gm in 100 mls @ 100 mls/hr 07/24/24 17:40 07/24/24 19:20 Magnesium Sulf 1 G/100 Ml-D5w IVPB 07/24/24 18:39 100 mls/hr ONCE ONE Administration Metoprolol Tartrate 2.5 mg 07/24/24 18:15 07/24/24 18:30 Metoprolol Tartrate 1 Mg/Ml Inj IVP 07/24/24 18:16 2.5 mg ONCE ONE Administration <Lynda Parisi MD - Last Filed: 07/24/24 20:18> MDM - Arrhythmia/Palpitations Lab Data Labs: Lab Results 07/24/24 07/24/24 Range/Units 18:05 19:19 WBC 6.62 (4.50-11.00) K/uL RBC 5.24 (4.30-5.90) m/uL Hgb 16.2 (13.5-17.5) gm/dL Hct 49.0 (37.0-53.0) % MCV 94 (80-100) fL MCH 31 (26-34) pg MCHC 33 (32-36) gm/dL RDW Coeff of Gin 13.5 (11.5-15.5) % Plt Count 200 (140-440) K/uL Neut % (Auto) 68.2 (42.0-72.0) % Lymph % (Auto) 11.9 L (20-44) % Haakon % (Auto) 14.0 H (0.0-11.0) % Eos % (Auto) 5.0 (0.0-7.0) % Baso % (Auto) 0.6 (0.0-3.0) % Neut # (Auto) 4.51 (1.7-7.0) K/uL Lymph # (Auto) 0.80 L (0.90-2.90) K/uL Haakon # (Auto) 0.90 (0.00-0.90) K/UL Eos # (Auto) 0.33 (0.00-0.50) K/uL Baso # (Auto) 0.04 (0.00-0.30) K/uL Abs Immat Gran (auto) 0.02 (0.00-0.30) K/uL Imm/Tot Granulo (auto) 0.3 % Sodium 138 (135-149) mmol/L Potassium 4.0 (3.6-5.1) mmol/L Chloride 104 (96-114) mmol/L Carbon Dioxide 28 (20-32) mmol/L Anion Gap 6 L (7-15) mEq/L BUN 16 (7-30) mg/dL Creatinine 1.0 (0.5-1.5) mg/dL Estimated Creat Clear 67.90 Estimated GFR 78 ml/min Glucose 93 (60-115) mg/dL Calcium 9.2 (8.4-10.6) mg/dL Magnesium 2.0 (1.5-2.6) mg/dL Total Bilirubin 0.7 (0.1-1.5) mg/dL Direct Bilirubin 0.3 (0.0-0.5) mg/dL AST 38 H (12-35) U/L ALT 26 (4-50) U/L Alkaline Phosphatase 84 (40-150) U/L NT-Pro-B Natriuret Pep 408 pg/mL Total Protein 7.4 (6.0-8.3) g/dL Albumin 4.4 (3.3-5.0) g/dL Lab Acknowledgement Test Added POC Troponin I 0.04 (0.01-0.04) ng/ml <Maikol Griffin MD - Last Filed: 07/24/24 20:18> Lab Results 07/24/24 07/24/24 Range/Units 18:05 19:19 WBC 6.62 (4.50-11.00) K/uL RBC 5.24 (4.30-5.90) m/uL Hgb 16.2 (13.5-17.5) gm/dL Hct 49.0 (37.0-53.0) % MCV 94 (80-100) fL MCH 31 (26-34) pg MCHC 33 (32-36) gm/dL RDW Coeff of Gin 13.5 (11.5-15.5) % Plt Count 200 (140-440) K/uL Neut % (Auto) 68.2 (42.0-72.0) % Lymph % (Auto) 11.9 L (20-44) % Haakon % (Auto) 14.0 H (0.0-11.0) % Eos % (Auto) 5.0 (0.0-7.0) % Baso % (Auto) 0.6 (0.0-3.0) % Neut # (Auto) 4.51 (1.7-7.0) K/uL Lymph # (Auto) 0.80 L (0.90-2.90) K/uL Haakon # (Auto) 0.90 (0.00-0.90) K/UL Eos # (Auto) 0.33 (0.00-0.50) K/uL Baso # (Auto) 0.04 (0.00-0.30) K/uL Abs Immat Gran (auto) 0.02 (0.00-0.30) K/uL Imm/Tot Granulo (auto) 0.3 % Sodium 138 (135-149) mmol/L Potassium 4.0 (3.6-5.1) mmol/L Chloride 104 (96-114) mmol/L Carbon Dioxide 28 (20-32) mmol/L Anion Gap 6 L (7-15) mEq/L BUN 16 (7-30) mg/dL Creatinine 1.0 (0.5-1.5) mg/dL Estimated Creat Clear 67.90 Estimated GFR 78 ml/min Glucose 93 (60-115) mg/dL Calcium 9.2 (8.4-10.6) mg/dL Magnesium 2.0 (1.5-2.6) mg/dL Total Bilirubin 0.7 (0.1-1.5) mg/dL Direct Bilirubin 0.3 (0.0-0.5) mg/dL AST 38 H (12-35) U/L ALT 26 (4-50) U/L Alkaline Phosphatase 84 (40-150) U/L NT-Pro-B Natriuret Pep 408 pg/mL Total Protein 7.4 (6.0-8.3) g/dL Albumin 4.4 (3.3-5.0) g/dL Lab Acknowledgement Test Added POC Troponin I 0.04 (0.01-0.04) ng/ml <Lynda Parisi MD - Last Filed: 07/24/24 20:18> Discharge Plan Discharge Clinical Impression: Atrial fibrillation with rapid ventricular response, Chronic systolic CHF (congestive heart failure), Moderate aortic stenosis <Maikol Griffin MD - Last Filed: 07/24/24 20:18> Patient Disposition: Home, Self-Care <Maikol Griffin MD - Last Filed: 07/24/24 20:18> Instructions: A-fib (Atrial Fibrillation) (ED) <Maikol Griffin MD - Last Filed: 07/24/24 20:18> Additional Instructions: Take your dose of sotalol tonight and then stop Start taking amiodarone on Friday morning Cardiology clinic should call you Friday, if you do not hear from them by noon, call and check about follow-up in further medications. <Maikol Griffin MD - Last Filed: 07/24/24 20:18> Activity Level: Activity as Tolerated <Maikol Griffin MD - Last Filed: 07/24/24 20:18> Activity as Tolerated <Lynda Parisi MD - Last Filed: 07/24/24 20:18> Discharge Diet: Regular <Maikol Griffin MD - Last Filed: 07/24/24 20:18> Regular <Lynda Parisi MD - Last Filed: 07/24/24 20:18> Prescriptions: New amiodarone 200 mg tablet 200 mg PO DAILY Qty: 30 0RF Discontinued sotalol 80 mg tablet 40 mg PO BID No Action Repatha SureClick 140 mg/mL pen injector 140 mg subcut Q14D eszopiclone 1 mg tablet 1 mg PO HS Xyosted 75 mg/0.5 mL auto-injector 75 mg subcut Q7D Patient Comments: INJECT 0.5 ML SUBCUTANEOUS ONCE WEEKLY amlodipine 5 mg tablet 5 mg PO DAILY aspirin 81 mg capsule 81 mg PO DAILY celecoxib 100 mg capsule 100 mg PO BID PRN omeprazole 40 mg capsule,delayed release(DR/EC) 40 mg PO DAILY <Maikol Griffin MD - Last Filed: 07/24/24 20:18> Follow Up/Referrals: Adrien Hernandez MD [Primary Care Provider] - <Maikol Griffin MD - Last Filed: 07/24/24 20:18> Stand Alone Forms: My[employer] Info Instructions <Maikol Griffin MD - Last Filed: 07/24/24 20:18>
--- OUTSIDE RECORDS SUMMARY | 2024-07-24 17:52 | XMS_ITS | Continuity of Care Document ---
Author Name NwHIN User KobleMN-a llowed Address Unknown Organization Unknown Address Unknown Procedures FILTER APPLIED:Only known Procedures with Onset Date within the last 5 years Procedure Date Procedure Provider Additiona l Information Status HEMATOCRIT (63793) Compl eted GAIT TRAINING THERAPY (63931) Completed THERAPEUTIC EXERCISES (56671) Completed NEUROMUSCULAR REEDUCATION (29051) Completed PT EVAL MOD COMPLEX 30 MIN (38833) Completed ASSAY OF CREATININE (63587) Completed PT EVAL LOW COMPLEX 20 MIN (00051) Completed OT EVAL LOW COMPLEX 30 MIN (91370) Completed THERAPEUTIC ACTIVITIES (73494) Completed SELF CARE MNGMENT TRAINING (97848) Completed ROUTINE VENIPUNCTURE (35750) Completed THERAPEUTIC EXERCISES (45665) Completed ASSAY OF SERUM SODIUM (21196) Completed ASSAY OF UREA NITROGEN (70984) Completed COMPLETE CBC W/AUTO DIFF WBC (06897) Completed ASSAY OF SERUM POTASSIUM (43126) Completed GAIT TRAINING THERAPY (89679) Completed X-RAY EXAM OF KNEE 1 OR 2 (07576) Completed FLUOROSCOPY <1 HR PHYS/QHP (21270) Completed SUTURE QUADRICEPS/HAMSTRING RUPTURE PRIMARY (84663) Complete d ANES PT EXTEME AGE<1 YR >70 (21865) Completed ANESTH KNEE AREA SURGERY (39847) Completed SARSCOV CORONAVIRUS AG IA (32916) Completed ECHO GUIDE FOR BIOPSY (17169) Completed MECHANICAL TRACTION THERAPY (13136) Completed ASHLEY MDLTY 1+ULTRASOUND EA 15 (45787) Completed GAIT TRAINING THERAPY (61919) Completed PT EVAL MOD COMPLEX 30 MIN (31615) Completed THERAPEUTIC EXERCISES (04741) Completed MANUAL THERAPY 1/> REGIONS (68038) Completed Encounters FILTER APPLIED:Only known Encounters with Admission Date within the last 5 years Encounter Location Admission Discharge Billing Code [employer] 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
--- OUTSIDE RECORDS SUMMARY | 2024-07-24 17:52 | XMS_ITS | Clinical Summary ---
Author Organization [facility] Address [address] [address] Care Team Providers Care Entry Operator Name Role Phone Adrien Hernandez MD Primary Care Provider [phone] Source Comments You are receiving this document as you are listed as the primary care provider,follow-up provider, or the patient has been referred to you for consultation.This is in compliance with the Medicare and[facility] EHR Incentive Program,which states Providers who transition their patient to another setting of careor provider of care or refers their patient to another provider of care shouldprovide summary care record for each transition of care or referral. [facility] Allergies No known active allergies Medications Medication Sig Dispensed Refills Start Date End Date Status apixaban (ELIQUIS) 5 MG tablet Take 5 mg by mouth two times a day. Active gabapentin (NEURONTIN) 100 MG capsule Take 100 mg by mouth three times a day. Active eszopiclone (LUNESTA) 1 MG tablet Take 1 mg by mouth daily at bedtime. Active losartan (COZAAR) 50 MG tablet Take 50 mg by mouth daily. Active celecoxib (CELEBREX) 100 MG capsule Take 100 mg by mouth two times a day. Active terbinafine (LAMISIL) 250 MG tablet Take 1 Tablet by mouth daily. 30 Tablet 1 05/20/2018 Active ketoconazole (NIZORAL) 2 % cream Apply topically daily. 120 g 11 05/20/2018 Active triamcinolone acetonide (KENALOG) 0.1 % cream Apply to affected areas tid-qid prn 80 g 2 06/05/2018 Active amLODIPine (NORVASC) 5 MG tablet Take 5 mg by mouth. 01/24/2020 Active Testosterone Enanthate 75 MG/0.5ML SOAJ Inject subcutaneously. 05/05/2020 Active Tadalafil (CIALIS) 5 MG tablet Take 5 mg by mouth. 02/16/2020 Active omeprazole (PRILOSEC) 20 MG capsule Take 20 mg by mouth. 02/03/2020 Active oxybutynin (DITROPAN XL) 5 MG 24 hour release tablet Take 1 Tablet by mouth daily for 30 days. 30 Tablet 05/22/2020 Active Active Problems No known active [...] Services) 1945 Medicare Annual Wellness Visit 1945 RSV (1 - 1-dose 75+ series) 2022 COVID-19 Vaccine ( season) 2024 10/04/2020, 09/13/2020 Influenza (#1) 2024 04/06/2020, 03/08, 04/13/2018, Additional history exists DTaP/Tdap/Td [...] age to complete this topic Care Teams Entry Operator Relationship Specialty Start Date End Date Adrien Hernandez MD [address] [place] [address] PCP - General Family Practice 03/04/18
--- OUTSIDE RECORDS SUMMARY | 2024-07-24 17:52 | XMS_ITS | Continuity of Care Document ---
Author Organization [facility] Address [address] [place] [id number] Phone Care Team Providers Care Train Announcer Name Role Phone Will Bran MONGE Unavailable [...] Diagnoses Date Provider Providers Copied on Encounter [facility], [address] [place], [place], [id number] , [place] tel: [phone] [facility] No Information 2 Dany Sotomayor. [address] [place], [place], [id number] , [place]. tel: [phone] OFFICE/OUTPATI ENT VISIT, EST [facility], [address] [place] [address] [place], [id number] , [place] tel: [phone] [facility] headache (chief complaint) Headache 8 Tish Willoughby. [facility], [place], [place], [id number] , [place]. tel: [phone] Referring Provider: [facility] [address] [place] [address], [address]. tel:[phone] OFFICE CONSULTATION [facility], [address] [place] [address], [id number] , [place] tel: [phone] [facility] headache (chief complaint) HeadacheOther long term acute care registered nurse (current) drug therapy 8 Schneider Tao. [facility], [address], [place], [address], [place]. tel: [phone] Referring Provider: Cm Mirza [facility] [address] [place] [address], [address]. [phone] [facility], [address] [place] [address], [id number] , [place] tel: [phone] [facility] headache (chief complaint) No Information 8 Schneider Tao. [facility], [address], [place], [address], [place]. tel:[phone] Family History Family Member Type Diagnosis Age At Onset No Information Payers Payer name Insurance type Covered democrat ID Authoriza tion(s) [employer] To 16 [id number] Social History Type Description Quantity Date Captured Comments Sex Male Smoking Status No Information Chief Complaint And Reason For Visit No Information Reason For Referral Reason For Referral No Information Plan Of Treatment Date Type Action Status Future Order: Lab Order [facility]UG ANALYSIS, URINE, WITH MED REPORT ([id number]), Ordered on: Ordered History Of Present Illness [...] medical cannabis and has worked with the [facility] dispensary. Reports he has been taking the [...] or neurologic symptoms.Tested for sleep apnea at [facility]-- no significant findings. Dr. Mirza suggested Mr. Rubin come here to explore injections and medical cannabis. States he currently takes excedrin for acute pain relief.Mr. Rubin would like [facility] to assume managment of pain care. [...] or neurologic symptoms.Tested for sleep apnea at [facility]-- no significant findings. Underwent PT at -- not helpful. Tried injections at -- not helpful. Reports previous . Has taken for addtional pain relief. Mr. is interested in and would like [facility] to assume managment of pain care. Functional Status Date Functional Assessmen t No Information Instructions Date Instruction Additional Infor mation No Information Assessments Type Assessment Date No Information Patient Care Teams Name Effective Dates (start - stop) Status Members No Information
--- OUTSIDE RECORDS SUMMARY | 2024-07-24 17:52 | XMS_ITS | Clinical Summary ---
Author Organization [email or web address] [facility] Address [place], [place] [address] Care Team Providers Care Dock Pumper Name Role Phone Adrien Hernandez MD Primary Care Provider [phone] Allergies Active Allergy Reactions Criticality Noted Date Comments Atorvastatin Myalgia 09/18/2015 Muscle pains with atorvastatin Rosuvastatin Nausea Only 11/09/2015 Statin intolerance. Lisinopril Cough 11/09/2015 Naproxen Rash Medications acetaminophen (TYLENOL EXTRA STRENGTH) 500 mg tablet Take 1 tablet by mouth every 6 hours if needed. Max acetaminophen dose: 4000mg in 24 hrs. 0 12/09/19 18 Active artificial tears, peg 400-propylene glycol, (Systane Hydration PF) 0.4-0.3 % ophthalmic dropperette Place 1-2 Drops into both eyes. Active eszopiclone (Lunesta) 1 mg tabletIndications: Insomnia, idiopathic Take 1 Tablet (1 mg) by mouth at bedtime. 09/18/19 22 Active Xyosted 75 mg/0.5 mL atInIndications:Lo w testosterone INJECT 75MG SUBCUTANEOUS WEEKLY 12 mL 03/07/20 22 Active aspirin (ECOTRIN) 81 mg enteric coated tabletIndications: Presence of Watchman left atrial appendage closure device Take 1 Tablet (81 mg) by mouth once daily with a meal. 0 09/13/19 23 Active ketoconazole 2% shampoo (NIZORAL) 2 % shampoo Not taking Active sotaloL (BETAPACE) 80 mg tabletIndications: Paroxysmal atrial fibrillation (HC) Take 0.5 Tablets (40 mg) by mouth every 12 hours. 90 Tablet 3 03/25/20 24 Active evolocumab (Repatha SureClick) 140 mg/mL subcutaneous pen injectorIndication s:Hyperlipidemia, unspecified hyperlipidemia type Inject 1 mL (140 mg) subcutaneous every 2 weeks. Inject into abdomen, thigh, or upper arms; rotate injection sites 6 mL 2 04/06/20 24 Active amLODIPine (NORVASC) 5 mg tabletIndications: HTN (hypertension),Chr onic atrial fibrillation (HC) Take 1 Tablet (5 mg) by mouth once daily. 90 Tablet 3 06/15/20 24 Active celecoxib (CELEBREX) 100 mg capsuleIndications :Polyarthralgia Take 1 Capsule (100 mg) by mouth once daily with a meal. 90 Capsule 3 06/15/20 24 Active omeprazole (PRILOSEC) 40 mg Delayed-Release capsuleIndications :Gastric reflux Take 1 Capsule (40 mg) by mouth once daily before a meal. 90 Capsule 3 06/15/20 24 Active clobetasol (TEMOVATE) 0.05 % cream APPLY TWICE DAILY TO AFFECTED AREAS ON BODY FOR 2 WEEKS, TAKE 2 WEEKS OFF. REPEAT NEEDED. 05/10/20 24 Active Active Problems Patient Care Coordination No te Formatting of this note migh t be different from the original. HF/Structural/Prevention Research Eligibility Review Date: 06/22/19 Upcoming Visit Location: [facility] Age: 74 y.o. Insurance: Medicare EF: 74 LVID: Valve/Imaging: Mild MR, trace TR, mild /no AR Cardiac Devices: Comments: HF: DNQ Structural: [place]: No d/t mild MR Prevention: DNQ Problem Noted Date Diagnosed Date Osteoarthritis of right shoulder 10/21/2022 10/21/2022 Sensorineural hearing loss (SNHL) of both ears 0 10/16/2022 Aortic dilatation 08/16/2022 Myopia with presbyopia of left eye 06/20/2022 10/21/2022 Overview (10/21/2022): Last Assessment & Plan: Refractive Error/Presbyopia - The results of the refraction were discussed with the patient and a new prescription for bifocal/progressive spectacles was dispensed Pseudophakia, left eye 05/29/2022 3 Overview (10/21/2022): Last Assessment & Plan: - 3 months s/p CE IOL of the left eye on 05/21/2022. - At one month post-op appointment had steroid response with IOP elevated to 28 in the left eye. Pred Forte was discontinued. - Today, IOP back within normal limits at 18. No need to start IOP lowering agent. - PCIOL in good position and clear. AC quiet. - Monitor Osteopenia 04/11/2019 Overview (04/11/2019): On DEXA 04/2019 Nonrheumatic aortic valve stenosis 08/07/2018 Sarcoidosis, lung 07/29/2017 Overview (07/29/2017): Recently diagnosed at [place] Paroxysmal atrial fibrillation 04/10/2017 Thoracic aortic aneurysm without rupture 017 Overview (01/12/2020): 4.7 cm on echo 01/2020; CT recommended 01/2021 S/P ankle joint replacement 02/03/2017 Pulmonary nodules/lesions, multiple 01/03/2017 Chronic systolic CHF (congestive heart failure) 10/25/2014 Prostate cancer 08/23/2014 LVH (left ventricular hypertrophy) 05/16/2014 ED (erectile dysfunction) 11/25/2013 Adenomatous colon polyp 09/24/2013 Overview (12/13/2020): Colonoscopy 09/2013 polyp repeat in 5 years Colonoscopy 07/2018 multiple polyps, repeat in 3 years Colonoscopy 12/2020 polyp, repeat in 5 years HTN (hypertension) 12/28/2012 Low testosterone 06/18/2012 Dry eye syndrome 03/28/2009 Overview (03/28/2009): Bilateral; uses drops daily Mixed hyperlipidemia 11/18/2006 [...] at a health care facility 11/09/2008 12/05/2009 Overview (11/09/2008): Colonoscopy 07/2008 Recheck 5 yrs Diverticulitis of colon (wit hout mention of hemorrhage) 02/23/2008 07/16/2021 Overview (02/25/2017): 1 episode January 2008 ANKLE degeneration 09/01/2007 2 ANXIETY DISORDER 02/25/2017 Encounters Date Type Department Care Team Description 06/28/2024 Telephone [facility] [address] [place] [address] Donny Kirkpatrick MD Questions (Regarding increased pain since ZAHIDA on 06/22/24) 06/22/2024 8:00 AM FOOD SERVICE DRIVER Office Visit [facility] at [address] [address] Donny Kirkpatrick MD Procedure (Left L4-5 TFESI) 06/15/2024 1:35 PM FOOD SERVICE DRIVER Office Visit [facility] [address] [place] [address] Adrien Hernandez MD Medicare ANNUAL (subsequent) Visit (79 yr old male) 06/15/2024 Travel 06/11/2024 2:00 PM FOOD SERVICE DRIVER Office Visit [facility] [address] [place] [address] Leslie Perry DO Pneumonia (Was prescribed azithromycin on 06/08, feels he is not getting any better) 06/10/2024 4:30 PM FOOD SERVICE DRIVER Phone Office Visit [facility] [address] [place] [address] Geraldo Rhodes MD 06/10/2024 Travel 06/09/2024 Travel 06/08/2024 2:45 PM FOOD SERVICE DRIVER Office Visit [facility] [address] [place] [address] Sotero Mahmood MD Cough (> 1 week of coughing/congestion ) 06/08/2024 Travel 05/31/2024 Orders Only [facility] [address] [place] [address] Mariola Frankel PA Imaging 05/31/[address] [facility] [address] [phone] Geraldo Rhodes MD Aortic Aneurysm 05/27/2024 Transcribe Orders [facility] [address] [place] [address] Donny Kirkpatrick MD 05/26/2024 Refill [facility] [address] [place] [address] Adrien Hernandez MD Refill Request (Celecoxib) 05/24/2024 2:40 PM FOOD SERVICE DRIVER Office Visit [facility] [address] [place] [address] Tiarra Erazo MD Ear Problem (Ringing in the ear for 10 days. Impacted ears. ) 05/24/2024 Travel 05/21/2024 Orders Only [facility] Scanner 1 scan: (1-Ord) [place], LUMBAR SPINE WO CONTRAST, 05/21/2024 05/20/2024 Telephone [facility] [address] [phone] Koby Gaines MD Questions (Results) 05/18/2024 Refill [facility] [address] [place] [address] Adrien Hernandez MD Refill Request (Amlodipine) 05/17/2024 Refill [facility] [address] [place] [address] Adrien Hernandez MD Refill Request (Celecoxib) 05/14/2024 2:06 PM FOOD SERVICE DRIVER - 05/14/2024 11:59 PM FOOD SERVICE DRIVER Hospital Encounter [facility] [address] [place] [address] Koby Gaines MD Pre-procedure lab exam 05/14/2024 11:30 AM FOOD SERVICE DRIVER Ancillary Procedure [address] [place] [address] 05/14/2024 11:00 AM FOOD SERVICE DRIVER Office Visit [address] Gennaro [address] [place] [address] Geraldo Rhodes MD 05/14/2024 10:30 AM FOOD SERVICE DRIVER Office Visit [address] [place] [address] Koby Gaines MD CV Valve Est (INPERSON:VALVE EST:, ANNUAL F/U, ECHO PRIOR 05/12, JUDE) 05/14/2024 Refill [facility] [address] [place] [address] Adrien Hernandez MD Refill Request (Amlodipine) 05/14/2024 Travel 05/13/2024 Orders Only [facility] Scanner 1 scan: (1-Ord) [facility], XR LUMBAR SPINE 2-3V, 05/13/2024 05/12/2024 10:00 AM FOOD SERVICE DRIVER Ancillary Procedure [facility] [address] [place] [address] 05/12/2024 Travel from Last 3 Months Immunizations Name Administration Dates Next Due AMB INFLUENZA IIV3 (AGE 65+ YRS) PF (Flu Clinic Only) 04/13/2018 AMB Influenza, IIV3 (Age >=3 years)(Flu Clinic Only) 05/24/2008 COVID-19 vaccine (Pfizer-Bio NTech 30mcg/0.3mL) 12YO+ BIVALENT PF, MDV 05/16/2022 COVID-19 vaccine (WidespaceBio NTech 30mcg/0.3mL) 12YO+ NILES-SUCROSE PF, MDV 12/07/2021 COVID-19 vaccine (WidespaceBio NTech 30mcg/0.3mL) PF, MDV 10/04/2020,09/13/2020 HepA-HepB (Twinrix) 09/13/2011,08/30/2011,2011 Hepatitis A (Adult) 07/29/2017 Influenza, High-dose Inactivated 04/13/2018,04/06,04/24/2015 Influenza, IIV3 (Age >=3 years) 06/11/20 12,04/17/2010,03/28/2009,2007,06/01/2007,06/13/2006,05/07/2006,1 07/23/2002 Influenza, Inactivated AIIV4 (Age 65+ Years) Preserv Free 04/14/2023,05/16/2022,05/14/2021,2019 Influenza, Inactivated IIV3 (Age 65+ Years) Preserv Free 06/15/2024,03/26/2019,04/10/2017 Pneumococcal Poly,23-Valent (Pneumovax) 06/11/2012 Pneumococcal conj 13-Valent [...] drink = 0.6 oz pur e alcohol) [facility] Utilities Answer Date Recorded Do you have trouble paying f or utilities (for example, heat, electricity, water, phone)? Yes 06/10/2024 PHQ-2 Answer Date Recorded PHQ-2 TOTAL SCORE 0 06/15/2024 Social Connections Answer Date Recorded Do you often feel lonely or isolated from those around you? 0 06/10/2024 Financial Resource Strain Answer Date R ecorded Difficulty of Paying Living Expenses 3 05/24/2024 Difficulty of Paying Living Expenses Not on file 05/24/2024 Food Insecurity Answer Date Recorded Do you worry your food will run out before you are able to buy more? 1 06/10/2024 Transportation Needs Answer Date Record ed Does lack of transportation keep you from medica l appointments? 1 06/10/2024 Does lack of transportation keep you from work, meetings or getting things that you need? 1 06/10/2024 Housing Stability Answer Date Recorded What is your housing situation today? 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 Not on file Not on file Obstetrics History Last Filed Vital Signs Vital Sign Reading Time Taken Comments Blood Pressure 131/81 06/15/2024 1:36 PM FOOD SERVICE DRIVER Pulse 70 06/15/2024 1:36 PM FOOD SERVICE DRIVER Temperature 36.2 C (97.2 F) 06/08/2024 2:50 PM FOOD SERVICE DRIVER Respiratory Rate 18 10/30/2023 4:31 PM CDT Oxygen Saturation 100% 06/15/2024 1:36 PM FOOD SERVICE DRIVER Inhaled Oxygen Concentration - - Weight 93.6 kg (206 lb 6.4 oz) 06/15/2024 1:36 P M FOOD SERVICE DRIVER Height 176.5 cm (5' 9.49) 06/15/2024 1:36 PM CS T Body Mass Index 30.05 06/15/2024 1:36 PM FOOD SERVICE DRIVER Plan of Treatment Health Maintenance Due Date Last Done Comments RSV vaccine for adults or (1 - 1-dose 75+ series) 2022 COVID-19 vaccine series ( season) 2024 05/16/2022, 12/07/2021, 05/07/2021, Additional history exists BMI (ht and wt on same day) for age 18+ 06/15/2025 06/15/2024, 05/14/2024, 03/25/2024, Additional history exists Depression screening for age 12+ 06/15/2025 06/15/2024, 04/18/2023, 2023, Additional history exists Medicare Wellness for age 65+ 06/16/2025, 04/14/2023, 07/16/2021, Additional history exists Tetanus booster 01/15/2030 01/16/2020, 02/04, 10/31/2006, Additional history exists Hepatitis C screening for ag e 18-79 Completed 05/02/2015 Pneumococcal series for age 50+ Completed 06/26/2015, 06/26/2015, 06/11/2012 Zoster (shingles) series for age 50+ Completed 08/03/2019, 05/24/2019, 08/02/2008 Tdap Completed 01/16/2020, 02/04, 10/31/2006 Influenza for age 65+ Completed 06/15/2024 , 04/14/2023, 05/16/2022, Additional history exists Medical Devices Implanted Type Area Printed Circuit Boards Contact Printer Device Identifier Shelf Expiration Date Model / Serial / Lot Amnio Fix 2.0x12.0cm Implanted:Qty: 1 on 10/25/2014 at [facility] [id number] / / [id number] Description:AMNIO FIX 2.0X12 .0CM Procedures Procedure Name Priority Date/Time Associated Diagnosis Comments AMB EPIDURAL STEROID INJECTION Routine 06/22/2024 12:00 AM FOOD SERVICE DRIVER Lumbar radiculopathy CBC WITH AUTO DIFFERENTIAL Routine 06/08/2024 3:35 PM FOOD SERVICE DRIVER Walking pneumonia SCAN-MRI INTERPRETATION 05/21/2024 12:00 AM FOOD SERVICE DRIVER HEMATOCRIT STAT 05/14/2024 2:10 PM FOOD SERVICE DRIVER Pre-procedure lab exam CTA CHEST ABD PELVIS TAVR - DUAL READ Routine 05/14/2024 12:22 PM FOOD SERVICE DRIVER Aneurysm of ascending aorta without rupture (HC) Aortic valve stenosis, etiology of cardiac valve disease unspecified CREATININE,ISTAT Routine 05/14/2024 11:3 8 AM FOOD SERVICE DRIVER Pre-procedure lab exam SCAN-RADIOLOGY REPORT 05/13/2024 12:00 AM FOOD SERVICE DRIVER ECHO TTE COMPLETE WO CONTRAST Routine 05/12/2024 10:53 AM FOOD SERVICE DRIVER Nonrheumatic aortic valve stenosis ANTI HCV Routine 05/02/2015 7:09 AM CDT Need for hepatitis C screening test from Last 3 Months or Most Recently Relevant to Health Maintenance Results * AMB EPIDURAL STEROID INJECTION (06/22/2024 12:00 AM FOOD SERVICE DRIVER) us Donny Kirkpatrick MD NEUROLOGY ORD Final Resu lt * CBC AND DIFFERENTIAL (06/08/2024 3:35 PM FOOD SERVICE DRIVER) WHITE BLOOD CELL COUNT 5.2 3.8 - 10.8 Thousand/u L [facility] RED BLOOD CELL COUNT 5.01 4.20 - 5.80 Million/uL [facility] HEMOGLOBIN 15.5 13.2 - 17.1 g/dL [facility] HEMATOCRIT 47.2 38.5 - 50.0 % [facility] MCV 94.2 80.0 - 100.0 fL [facility] MCH 30.9 27.0 - 33.0 pg [facility] MCHC 32.8 32.0 - 36.0 g/dL [facility] Comment: For adults, a slight decrease in the calculated MCHC value (in the range of 30 to 32 g/dL) is most likely not clinically significant; however, it should be interpreted with caution in correlation with other red cell parameters and the patient's clinical condition. RDW 12.6 11.0 - 15.0 % [facility] PLATELET COUNT 190 140 - 400 Thousand/u L [facility] MPV 10.9 7.5 - 12.5 fL [facility] ABSOLUTE NEUTROPHILS 3,297 1,500 - 7,800 cells/uL [facility] ABSOLUTE LYMPHOCYTES 957 850 - 3,900 cells/uL [facility] ABSOLUTE MONOCYTES 645 200 - 950 cells/uL [facility] ABSOLUTE EOSINOPHILS 260 15 - 500 cells/uL [facility] ABSOLUTE BASOPHILS 42 0 - 200 cells/uL [facility] NEUTROPHILS 63.4 % [facility] LYMPHOCYTES 18.4 % [facility] MONOCYTES 12.4 % [facility] EOSINOPHILS 5.0 % [facility] BASOPHILS 0.8 % [facility] Blood BLOOD SPECIMEN / Unknown 06/08/2024 3:35 PM FOOD SERVICE DRIVER 06/08/2024 3:36 PM FOOD SERVICE DRIVER us Sotero Mahmood MD HEMATOLOGY Final Resu lt [employer] [address] [place] [address], [facility] [address] [place] [address] * SCAN-MRI INTERPRETATION (05/21/2024 12:00 AM FOOD SERVICE DRIVER) Anatomical Region Laterality Modality Other us Scanner OTHER Final Result * STAT Hematocrit (05/14/2024 2:10 PM FOOD SERVICE DRIVER) HEMATOCRIT 45.5 37.0 - 53.0 % 05/14/2024 6:57 PM FOOD SERVICE DRIVER [facility] Blood BLOOD SPECIMEN / Unknown Venipuncture / Unknown 05/14/2024 2:10 PM FOOD SERVICE DRIVER 05/14/2024 2:11 PM FOOD SERVICE DRIVER Narrative [facility] - 05/14/2024 6:57 PM FOOD SERVICE DRIVER This procedure was originally ordered at [facility]. us Koby Gaines MD HEMATOLOGY Final Result [facility] [address] [place] [address], [place] * CTA CHEST ABD PELVIS TAVR - DUAL READ (05/14/2024 12:22 PM FOOD SERVICE DRIVER) Anatomical Region Laterality Modality CHEST, Abdomen, Pelvis Computed Tomography Impressions 05/17/2024 7:23 PM FOOD SERVICE DRIVER 1. No acute nonvascular findings in the chest, abdomen, and pelvis. 2. Please refer to separately dictated report for evaluation of cardiovascular structures. Please note that all CT scans at this facility use dose modulation, iterative reconstruction, and/or weight-based dosing when appropriate to reduce radiation dose to as low as reasonably achievable. Dictated by Connor Perea MD @ 05/15/2024 10:03:24 AM Narrative 05/17/2024 7:23 PM FOOD SERVICE DRIVER Images from the original result were not included. STUDY: CTA CHEST, ABDOMEN, AND PELVIS TAVR Study date: 05/14/2024 Indication: 79 year-old male with aortic valvular stenosis has been referred for evaluation of aortic valve annulus, thoracic aorta anatomy, and arterial access anatomy to determine candidacy for transcatheter aortic valve replacement (TAVR) procedure. STUDY PARAMETERS: Scanner: Siemens Definition Drive Contrast: 100 ml of Omnipaque 350 Scan protocol: Helical with dose modulation for heart image acquisition. High-pitch for chest, abdomen, and pelvis image acquisition. Radiation dose length product: 1264 for heart and chest, abdomen, pelvis imaging. Image quality: Good FINDINGS: Aortic valve annulus and outflow tract: Aortic valve: Moderately calcified trileaflet valve with reduced leaflet opening excursion. Aortic valve calcium score: 1385 Aortic annulus has a perimeter of 77.1 mm and an area of 465 mm2. No LVOT calcification. Projection angle recommendations: Arterial access: Pelvic arteries (RIGHT): Common iliac artery: Patent. Internal iliac artery: Patent. External iliac artery: Nonobstructive atherosclerosis. Common femoral artery: Nonobstructive atherosclerosis. Pelvic arteries (LEFT): Common iliac artery: Patent. Internal iliac artery: Patent. External iliac artery: Nonobstructive atherosclerosis. Common femoral artery: Nonobstructive atherosclerosis. Other findings: Coronary arteries: Dominance: Right coronary artery Left main: Patent Left anterior descending artery: Nonobstructive atherosclerosis Ramus: Patent Left circumflex artery: Patent Right coronary artery: Nonobstructive atherosclerosis Left atrium: A ARUNA occlusion device seated in proper position. The device is fully thrombosed. There is no device related thrombus. There is no contrast passing through the edge of the device. Left ventricle: Normal systolic function. Left ventricle septal ECV: 23% Pericardium: Normal without effusion. Thoracic aorta: Left-sided arch. Type 2 arch. Normal great artery branching pattern. Mild atheromatous disease in the arch and descending thoracic aorta. Arch does not exhibit acute angulation. Maximum cross-sectional dimensions are: Ascending aorta: 44 x 45 mm. Descending thoracic aorta: 27 x 27 mm. Abdominal aorta: Normal size and morphology. Abdominal aorta branch arteries: Celiac artery: Patent. Superior mesenteric artery: Patent. Right renal artery: Patent. Left renal artery: Patent. Inferior mesenteric artery: Patent. FINAL IMPRESSIONS: Moderately calcified trileaflet aortic valve with calcium score of 1385 and reduced leaflet excursion. Aortic annulus has a perimeter of 77 mm and an area of 465 mm2. No LVOT calcification. Best fitting device options include the 26 mm Kwaku 3 (with 11.6% over-sizing) or the 29 mm Evolut. Dilated ascending aorta, measuring 45 x 44 mm. Nonobstructive coronary artery atherosclerosis. Invasive coronary angiogram is not required prior to aortic intervention. Transfemoral access is feasible on either side. Please see radiology report for noncardiovascular findings. Cardiac Imaging Fellow: MD Marcellus Winters MD, [facility] FOR PATIENT: Results are automatically released to your [employer] ([email or web address]) account once available, in compliance with federal regulations. This means that you may see your results before your provider has had a chance to review them. Please allow 2-3 business days for your provider to comment on the results. For Patients: As a result of the 21st Century Cures Act, medical imaging exams and procedure reports are released immediately into your electronic medical record. You may view this report before your referring provider. If you have questions, please contact your health care provider. OVER-READ OVER-READ OVER-READ OVER-READ: DETAILED RADIOLOGY EXTRACARDIAC OVER-READ OF CARDIAC CT 05/14/2024 TECHNIQUE: Please see cardiology report for technical information. 100 cc Omnipaque-350 intravenous contrast. This exam is being performed in conjunction with the services provided by the [facility] ([facility]). CLINICAL HISTORY: Aortic aneurysm. Cardiac over-read. FINDINGS: Chest: Thyroid is unremarkable. No significant lymphadenopathy in the chest. Mild bibasilar dependent atelectatic changes. No focal airspace opacities or pleural effusions. Abdomen/Pelvis: Liver: Demonstrates diffusely decreased attenuation consistent with fatty infiltration. Gallbladder: Unremarkable. Spleen: Unremarkable. Adrenal glands: Unremarkable. Kidneys: Enhance symmetrically without hydronephrosis. Pancreas: Unremarkable. Lymph nodes: No retroperitoneal, mesenteric, inguinal, or pelvic adenopathy by CT criteria. Bowel: No bowel obstruction. Small hiatal hernia. Colonic diverticulosis. Urinary bladder: Limited evaluation due to underdistention. No gross pathology. Reproductive structures: Penile prosthesis is present with pump device in the left scrotum and deflated reservoir in the pelvis adjacent to the bladder. No abdominal/pelvis ascites or free intraperitoneal air. Musculoskeletal: Visualized osseous structures demonstrate diffuse degenerative changes. Koby Gaines MD CT Final Result * (ABNORMAL) CREATININE,ISTAT (05/14/2024 11:38 AM FOOD SERVICE DRIVER) CREATININE, POCT 1.00 0.57 - 1.11 mg/dL 05/14/2024 11:39 AM FOOD SERVICE DRIVER [facility] Comment:Caution: Patients ta champ Hydroxyurea have falsely increased iStat Creatinine results. Verify creatinine results ordering a Creatinine (37259.2) eGFR 78(L) >90 mL/min/1.7 3m2 05/14/2024 11:39 AM FOOD SERVICE DRIVER [facility] Comment:As of 2021, eG FR is calculated by the CKD-EPI creatinine equation without race adjustment. eGFR can be influenced by muscle mass, exercise, and diet. The reported eGFR is an estimation only and is only applicable if the renal function is stable. Blood BLOOD SPECIMEN / Unknown 05/14/2024 11:38 AM FOOD SERVICE DRIVER 05/14/2024 11:39 AM FOOD SERVICE DRIVER Koby Gaines MD CHEMISTRY Final Result [facility] [address] [place] [address], [place] * SCAN-RADIOLOGY REPORT (05/13/2024 12:00 AM FOOD SERVICE DRIVER) Anatomical Region Laterality Modality Other us Scanner OTHER Final Result * ECHO TTE COMPLETE WO CONTRAST (05/12/2024 10:53 AM FOOD SERVICE DRIVER) AORTIC VALVE MEAN PG 42 mmHg EJECTION FRACTION 59 % PEAK TR VELOCITY 2.7 m/s LVEDD 4.1 cm Anatomical Region Laterality Modality Ultrasound 05/12/2024 10:0 1 AM FOOD SERVICE DRIVER Narrative 05/12/2024 12:03 PM FOOD SERVICE DRIVER ECHOCARDIOGRAM CHENTE RUBIN : 1945 79 years Study Date: 05/12/2024 10:01:06 AM Gender: M BP: 136/82 mmHg Height: 183.00 cm BSA: 2.14 m Weight: 92.00 kg Tech: MSR Referring MD: KOBY GAINES Site: [facility] Reading Location: Mobile OP Patient Location: Outpatient. Procedure: 2D, Color Doppler and Spectral Doppler. Indication for study: Nonrheumatic aortic valve stenosis Cardiac Rhythm: Regular.Study quality: Fair. Final Impressions: 1. Normal left ventricular size, mildly increased wall thickness, normal global systolic function, calculated EF of 59 %. 2. Right ventricular cavity size is mildly enlarged, global systolic RV function is normal. 3. Normal left atrium size. 4. The aortic valve is calcified and sclerotic, moderate stenosis and mild regurgitation. The aortic valve peak velocity is 3.9 m/s, the peak gradient is 62 mmHg, and the mean gradient is 42 mmHg. The aortic valve area is 1.15 cm with a dimensionless index of 0.31. The stroke volume index is 49.2 ml/m . 5. The mitral valve is normal, mild mitral regurgitation. 6. Tricuspid valve is normal. 7. The ascending aorta is dilated with a maximal diameter of 4.1 cm (note views are limited); Suggest clinical correlation and other modality imaging (CT) to confirm. 8. No pericardial effusion. Chamber Sizes and Function Normal left ventricular size, mildly increased wall thickness, normal global systolic function, calculated EF of 59 %. No resting regional wall motion abnormality visualized. Left atrial size is normal. Left atrial pressure is normal. Right ventricular cavity size is mildly enlarged, global systolic RV function is normal. The right atrium is normal. Right atrial volume index is 26 ml/m . Right atrial area is 20 cm . The pulmonary artery is of normal size and origin. The sinus of Valsalva is normal sized. The ascending aorta is dilated. Valves, RV Pressures and Diastolic Function The aortic valve is calcified and sclerotic, moderate stenosis and mild regurgitation. The mitral valve is normal in structure, mild mitral regurgitation. Normal diastolic function. The tricuspid valve is normal in structure. Tricuspid regurgitation is mild regurgitation. The tricuspid regurgitant velocity is 2.7 m/s, the estimated right ventricular systolic pressure is 29 mmHg plus right atrial pressure. There is mildly increased estimated pulmonary pressure by tricuspid regurgitation velocity and right atrial pressure. The pulmonic valve is not well visualized. No pulmonary regurgitation. Masses, Effusion, Shunts There is no pericardial effusion. The inferior vena cava is normal sized, respiratory size variation greater than 50%. No left to right shunting was detected by limited color flow Doppler interrogation of the interatrial septum. MEASUREMENTS AND CALCULATIONS 2-D Measurements and LV Function: LVID (d) 4.1 cm Planimetered EF 59 % LVID (s) 2.9 cm LV FS% (2D) 29 % IVS (d) 1.4 cm LVOT diameter 2.2 cm LVPW (d) 1.3 cm HR 59 bpm Ao Sinus 3.3 cm LA Vol index 32 ml/m2 Asc Ao 4.1 cm RA Vol index 26 ml/m2 RA area 20 cm RV Max 4C (d) 4.6 cm Diastology: Mitral Tissue Doppler E Peak 0.9 m/s e', Septum 0.07 m/s A Peak 0.3 m/s e', Lateral 0.11 m/s E/A 3.0 E/e' Average 9.30 DT 202 msec Aortic Valve: Vmax 3.9 m/s HOLGER (V) 1.12 cm AI P 1/2 585 msec VTI 0.92 m HOLGER (I) 1.15 cm LVOT V max 1.2 m/s Max PG 62 mmHg LVOT VTI 0.29 m Mean PG 42 mmHg SV 105 ml Dim Index 0.31 SV index 49 ml/m CO 6.2 l/min CI 2.9 l/min/m Mitral Valve: MVA 3.8 cm MV P 1/2 59 msec Tricuspid Valve and estimated PA pressures: TR Vmax 2.7 m/s TAPSE 2.3 cm TR maxG 29 mmHg . Report modified by Carmel Mosley MD on 05/14/2024 10:34:04 AM. This study was interpreted by an [facility] accredited facility. Final (Updated) Procedure Note Carmel Mosley, [facility] - 05/14/2024 ECHOCARDIOGRAM CHENTE RUBIN : 1945 79 years Study Date: 05/12/2024 10:01:06 AM Gender: M BP: 136/82 mmHg Height: 183.00 cm BSA: 2.14 m Weight: 92.00 kg Tech: MSR Referring MD: KOBY GAINES Site: [facility] Reading Location: Mobile OP Patient Location: Outpatient. Procedure: 2D, Color Doppler and Spectral Doppler. Indication for study: Nonrheumatic aortic valve stenosis Cardiac Rhythm: Regular.Study quality: Fair. Final Impressions: 1. Normal left ventricular size, mildly increased wall thickness, normalglobal systolic function, calculated EF of 59 %. 2. Right ventricular cavity size is mildly enlarged, global systolic RVfunction is normal. 3. Normal left atrium size. 4. The aortic valve is calcified and sclerotic, moderate stenosis andmild regurgitation. The aortic valve peak velocity is 3.9 m/s, the peakgradient is 62 mmHg, and the mean gradient is 42 mmHg. The aortic valvearea is 1.15 cm with a dimensionless index of 0.31. The stroke volumeindex is 49.2 ml/m . 5. The mitral valve is normal, mild mitral regurgitation. 6. Tricuspid valve is normal. 7. The ascending aorta is dilated with a maximal diameter of 4.1 cm (noteviews are limited); Suggest clinical correlation and other modalityimaging (CT) to confirm. 8. No pericardial effusion. Chamber Sizes and Function Normal left ventricular size, mildly increased wall thickness, normalglobal systolic function, calculated EF of 59 %. No resting regional wallmotion abnormality visualized. Left atrial size is normal. Left atrialpressure is normal. Right ventricular cavity size is mildly enlarged,global systolic RV function is normal. The right atrium is normal. Rightatrial volume index is 26 ml/m . Right atrial area is 20 cm . Thepulmonary artery is of normal size and origin. The sinus of Valsalva isnormal sized. The ascending aorta is dilated. Valves, RV Pressures and Diastolic Function The aortic valve is calcified and sclerotic, moderate stenosis and mildregurgitation. The mitral valve is normal in structure, mild mitralregurgitation. Normal diastolic function. The tricuspid valve is normal instructure. Tricuspid regurgitation is mild regurgitation. The tricuspidregurgitant velocity is 2.7 m/s, the estimated right ventricular systolicpressure is 29 mmHg plus right atrial pressure. There is mildly increasedestimated pulmonary pressure by tricuspid regurgitation velocity and rightatrial pressure. The pulmonic valve is not well visualized. No pulmonaryregurgitation. Masses, Effusion, Shunts There is no pericardial effusion. The inferior vena cava is normal sized,respiratory size variation greater than 50%. No left to right shunting wasdetected by limited color flow Doppler interrogation of the interatrialseptum. MEASUREMENTS AND CALCULATIONS 2-D Measurements and LV Function: LVID (d) 4.1 cm Planimetered EF 59 % LVID (s) 2.9 cm LV FS% (2D) 29 % IVS (d) 1.4 cm LVOT diameter 2.2 cm LVPW (d) 1.3 cm HR 59 bpm Ao Sinus 3.3 cm LA Vol index 32 ml/m2 Asc Ao 4.1 cm RA Vol index 26 ml/m2 RA area 20 cm RV Max 4C (d) 4.6 cm Diastology: Mitral Tissue Doppler E Peak 0.9 m/s e', Septum 0.07 m/s A Peak 0.3 m/s e', Lateral 0.11 m/s E/A 3.0 E/e' Average 9.30 DT 202 msec Aortic Valve: Vmax 3.9 m/s HOLGER (V) 1.12 cm AI P 1/2 585 msec VTI 0.92 m HOLGER (I) 1.15 cm LVOT V max 1.2 m/s Max PG 62 mmHg LVOT VTI 0.29 m Mean PG 42 mmHg SV 105 ml Dim Index 0.31 SV index 49 ml/m CO 6.2 l/min CI 2.9 l/min/m Mitral Valve: MVA 3.8 cm MV P 1/2 59 msec Tricuspid Valve and estimated PA pressures: TR Vmax 2.7 m/s TAPSE 2.3 cm TR maxG 29 mmHg . Report modified by Carmel Mosley MD on 05/14/2024 10:34:04 AM. This study was interpreted by an [facility] accredited facility. Final (Updated) Koby Gaines MD ECHO ORD Edited Result - Final * ANTI HCV [[id number]] (05/02/2015 7:09 AM CDT) HEPATITIS C ANTIBODY Non-Reacti ve Non-Reacti ve 05/02/2015 2:42 PM CDT [facility] Blood specimen (specimen) BLOOD SPECIMEN / Unknown Venipuncture / Unknown 05/02/2015 7:09 AM CDT 05/02/2015 7:09 AM CDT Narrative [facility] - 05/02/2015 2:42 PM CDT Antibodies to HCV not detected; does not exclude the possibility of exposure to HCV. Maikol Cortes MD SEND OUTS Final Result [facility] 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 Healthcare Directive 06/21/2024 024 Healthcare Directive 05/08/2016 2:18 PM BARRY TSAI, 01/26/2016 Healthcare Directive 05/23/2014 11:40 AM BARRY TSAI, 07/18/2005 * Full Code (Latest Code Status on File) Date Activated Date Inactivated Comments 09/11/2022 11:35 AM 09/12/2022 4:00 PM Question Answer Comments Code Status Discussion: Reviewed Preferences * Full Code Date Activated Date Inactivated Comments 12/27/2020 12:05 PM 12/28/2020 1:08 PM Question Answer Comments Code Status Discussion: Discussed * Full Code Date Activated Date Inactivated Comments 12/13/2020 7:14 AM 12/13/2020 11:53 AM Question Answer Comments Code Status Discussion: Per Existing Order * Full Code Date Activated Date Inactivated Comments 01/05/2020 2:01 PM 01/05/2020 5:51 PM * Full Code Date Activated Date Inactivated Comments 12/06/2014 7:15 AM 12/06/2014 12:26 PM Care Teams Dock Pumper Relationship Specialty Start Date End Date Adrien Hernandez MD [address] [place] [address] PCP - General Family Practice 10/28/16
--- OUTSIDE RECORDS SUMMARY | 2024-07-24 17:52 | XMS_ITS | Clinical Summary ---
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 Medications amLODIPine (Norvasc) 5 MG tablet 3 Active sotalol (Betapace) 80 MG tablet 3 Active evolocumab (Repatha) 140 MG/ML prefilled syringe injection Inject 140 mg under the skin. Active eszopiclone (Lunesta) 1 MG tablet Take 1 mg by mouth at bedtime. 3 Active polyethyl glycol-propyl glycol (Systane) 0.4-0.3 % ophthalmic gel Apply 1 Drop to eye two times a day. Active aspirin EC 81 MG tablet Take 81 mg by mouth one time a day. 3 Active augmented betamethasone dipropionate (Diprolene) 0.05 % ointment Active augmented betamethasone dipropionate (Diprolene) 0.05 % ointment 3 Active celecoxib (CeleBREX) 100 MG capsule 3 Active clindamycin (Clindagel) 1 % gel APPLY TOPICALLY TO THE AFFECTED AREA TWICE DAILY FOR 7 DAYS Active omeprazole (PriLOSEC) 20 MG delayed-release capsule TAKE 1 CAPSULE BY MOUTH EVERY DAY BEFORE A MEAL 0 Active sotalol (Betapace) 80 MG tablet Take 40 mg by mouth every 12 hours. Active Active Problems Problem Noted Date Diagnosed Date Congenital spondylolysis, lumbosacral region 04/02/2023 Insomnia 04/02/2023 04/02/2023 Osteoarthritis of right shoulder 10/21/2022 04/02/2023 Aortic dilatation 08/16/2022 04/02/2023 Osteopenia 04/11/2019 04/02/2023 Overview (04/02/2023): On DEXA 04/2019 Nonrheumatic aortic valve stenosis 08/07/2018 04/02/2023 Sarcoidosis, lung 07/29/2017 04/02/2023 Overview (04/02/2023): Recently diagnosed at [facility] Paroxysmal atrial fibrillation 04/10/2017 0 04/02/2023 Thoracic aortic aneurysm without rupture 017 04/02/2023 Overview (04/02/2023): 4.7 cm on echo 01/2020; CT recommended 01/2021 Prostate cancer 08/23/2014 04/02/2023 LVH (left ventricular hypertrophy) 05/16/2014 04/02/2023 Adenomatous colon polyp 09/24/2013 04/02/20 23 Overview (04/02/2023): Colonoscopy 09/2013 polyp repeat in 5 years Colonoscopy 07/2018 multiple polyps, repeat in 3 years Colonoscopy 12/2020 polyp, repeat in 5 years HTN (hypertension) 12/28/2012 04/02/2023 Mixed hyperlipidemia 11/18/2006 04/02/2023 Social History Tobacco Use Types Packs/Day Years Used Date Smoking Tobacco: Never Assessed Sex and Gender Information Value Date Recorded Sex Assigned at Not on file Legal Sex Male 1:44 PM CDT Gender Identity Not on file Sexual Orientation [...] 04/02/2023 2:27 PM CDT Plan of Treatment Health Maintenance Due Date Last Done Comments MEDICARE AWV 1945 Pneumococcal Vaccine: 65+ yr s (Standing Order) (1 of 2 - PCV) 1951 PERTUSSIS (Standing Order) 1966 Shingrix (Zoster recombinant ) vaccine (Standing Order) (1 of 2) 1966 TETANUS (Standing Order) 1966 RSV Vaccination (60+ yrs) (Abrysvo/Arexvy) (1 - 1-dose 75+ series) 2022 COVID-19 Vaccine ( - 2023-2 5 season) 2024 Influenza Vaccine Seasonal (Standing Order) (#1) 2024 HPV Vaccine (Standing Order) Aged Out No longer eligible based on patient's age to complete this topic Hepatitis B Vaccine (Standin g Order) Aged Out No longer eligible b ased on patient's age to complete this topic Medical Devices Implanted Type Area Ext Js Developer Device Identifier Shelf Expiration Date Model / Serial / Lot Watchman Flx Closure Device N/A: Heart [id number] / NA / NA Description:1.5/3T Max Spatial Gradient: 2500 gauss/cm No coil restrictions Normal Operating Mode Max whole body CARLOS: 2W/kg; whole body 3.2W/kg Scan Duration: 2W/kg whole body average CARLOS for 60min of continuous RF (a sequence or [id number] series/scans without breaks) [facility] MRI Department 04/13/23 Insurance [employer] MEDICARE COST PART A&B
--- OUTSIDE RECORDS SUMMARY | 2024-07-24 17:53 | XMS_ITS | Continuity of Care Document ---
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 Name Role Phone Mauricio Zheng MD Unavailable [...] PillCam Capsule 1st Day Offic/outpt E&m New Mod-mi Advance Directives Directive Yes / No Effective Date File Name No Information Encounters Encounter Description Practice Location Reason(s) For Visit Diagnoses Date Provider Providers Copied on Encounter Offic/outpt E&m Estab Low-mod [facility], [address] [address], [place], [id number], [place] tel:[phone] [facility] GI Symptoms or Concerns (chief complaint) Incontinence of feces, unspecified fecal incontinence typeAbnormal bowel movement 4 Norm Martínez. [address] [facility] [facility], [place], [id number] , [place]. tel:[phone] Referring Provider: Referral Self, USE FOR SELF REFERRALS. [facility], [address] [address], [place], [id number], [place] tel:[phone] [facility] No Information 4 Josesito Willoughby. [address], [place], [id number] , [place]. tel: [phone] [facility], [address] [address], [place], [id number], [place] tel:[phone] [facility] Anemia, unspecified 1 Dena Valera. [address] [facility], [place], [id number] , [place]. tel: [phone] Referring Provider: Adrien Baig, [address] [place] [address], [address]. tel:[phone] [facility], [address] [address], [place], [id number], [place] tel:[phone] [facility] Anemia, unspecified type 1 Vandana Nunez. [address], [place], [id number] , [place]. tel: [phone] Referring Provider: Referral Self, USE FOR SELF REFERRALS. Offic/outpt E&m New Mod-hi [facility], [address] [address], [place], [id number], [place] tel:[phone] [facility] Comment (chief complaint) MelenaAnemia, unspecified typeHistory of migraine headachesHistory of atrial fibrillation 1 Vandana Nunez. [address] [facility], [place], [id number] , [place]. tel:[phone] Referring Provider: Referral Self, USE FOR SELF REFERRALS. [facility], [address] [address], [place], [id number], [place] tel:[phone] [facility] No Information 1 Leslee Silva. [address], [place], [place], [id number] , [place]. tel:[phone] Family History Family Member Type Diagnosis Age [...] Covered libertarian ID Authoriza tion(s) [employer] 16 [id number] Social History Type Description Quantity Date Captured [...] anus. He has been followed by a key bed installer and treated with antifungal agent. He also [...] anus. He has been followed by a key bed installer and treated with antifungal agent. He also [...]
--- OUTSIDE RECORDS SUMMARY | 2024-07-24 17:53 | XMS_ITS | Clinical Summary ---
Author Organization [facility] Address [address] [place] [id number] Care Team Providers Care Programmer Analyst Consultant Name Role Phone Adrien Hernandez MD Primary Care Provider [phone] Allergies Active Allergy Reactions Criticality Noted Date Comments Atorvastatin Muscle Pain (Myalgia) 01/31/2017 Rosuvastatin Nausea 01/31/2017 Lisinopril Cough 01/31/2017 Naproxen Rash Low 01/31/2017 Medications clotrimazole-beta methasone (LOTRISONE) creamIndications: Tinea Corporis Apply topically 2 times daily as needed (rash) Active omeprazole (PRILOSEC) [address] capsule Take 1 capsule by mouth every evening (at 18:00) Active Polyethyl Glycol-Propyl Glycol (SYSTANE OP) Place 1 drop into both eyes 2 times daily Active acetaminophen (TYLENOL) 500 MG tablet Take 1-2 tablets by mouth every 6 hours as needed for mild pain Active amLODIPine (NORVASC) 5 MG tablet Take 5 mg by mouth At Bedtime (at 22:30) Active Testosterone Enanthate (XYOSTED) 75 MG/0.5ML SOAJ Inject 75 mg Subcutaneous once a week (on Friday) Active aspirin-acetamino phen-caffeine (EXCEDRIN MIGRAINE) 250-250-65 MG tablet Take 1 tablet by mouth every 6 hours as needed for headaches Active eszopiclone (LUNESTA) 1 MG tablet Take 1 tablet by mouth At Bedtime Active sotalol (BETAPACE) 80 MG tablet Take 0.5 tablets by mouth 2 times daily (0.5 x 80 mg = 40 mg) Active augmented betamethasone dipropionate (DIPROLENE AF) 0.05 % external cream Apply topically 2 times daily as needed Active diclofenac (VOLTAREN) 1 % topical gel Apply 2 g topically 4 times daily as needed for moderate pain Active evolocumab (REPATHA) 140 MG/ML prefilled syringe Inject 140 mg Subcutaneous every 14 days Active clopidogrel (PLAVIX) 75 MG tablet Take 1 tablet by mouth daily Active amoxicillin (AMOXIL) 500 MG capsule Take 4 capsules by mouth once as needed (1 hour prior to dental appointments 4 x 500 mg = 2,000 mg) Active aspirin 81 MG EC tablet Take 1 tablet (81 mg) by mouth daily Resume usual dose of aspirin after finishing increased dose prescribed after surgery 11/13/19 23 Active aspirin (ASA) 81 MG EC tabletIndications :VTE Prophylaxis Take 1 tablet (81 mg) by mouth 2 times daily 60 tablet 11/13/19 23 Active ondansetron (ZOFRAN ODT) 4 MG ODT tabIndications:S/ P ankle fusion Take 1 tablet (4 mg) by mouth every 6 hours as needed for nausea or vomiting 15 tablet 1 11/13/19 23 Active oxyCODONE (ROXICODONE) 5 MG tabletIndications :S/P ankle fusion Take 1 tablet (5 mg) by mouth every 4 hours as needed for moderate pain 40 tablet 11/13/19 23 Active senna-docusate (SENOKOT-S/JESSICA LACE) 8.6-50 MG tabletIndications :S/P ankle fusion Take 1 tablet by mouth 2 times daily 40 tablet 1 11/13/19 23 Active Active Problems Problem Noted Date Diagnosed [...] at Not on file Legal Sex Male 4:50 AM [employer] Gender Identity Not on file Sexual Orientation Not on file Last Filed Vital Signs Vital Sign Reading Time Taken Comments Blood Pressure 116/80 11/12/2022 7:38 AM CDT Pulse 79 11/12/2022 7:38 AM CDT Temperature 37.2 C (98.9 F) 11/12/2022 7:38 AM CDT Respiratory Rate 18 11/12/2022 7:38 AM CDT [...] ORDERS 1945 HEPATITIS C SCREENING 1965 LIPID 1987 FALL RISK ASSESSMENT 2012 RSV VACCINE (1 - 1-dose 75+ series) 2022 MEDICARE ANNUAL WELLNESS VISIT 07/16/2022 07/16/2021, 05/01/2020 COVID-19 Vaccine ( season) 2024 05/16/2022, 12/07/2021, 05/07/2021, Additional history exists INFLUENZA VACCINE (#1) 2024 , 05/14/2021, 04/06/2020, Additional history exists PHQ-2 (once per calendar year) 2024 GLUCOSE 11/12/2025 11/12/2022, 05/0 03/2023, 04/25/2020, Additional history exists DTAP/TDAP/TD IMMUNIZATION (5 - Td or Tdap) 01/15/2030 01/16/2020, 02/19/2013, 10/31/2006, Additional history exists Pneumococcal Vaccine: 50+ Years Completed 06/26/2015, 06/11/2012 ZOSTER IMMUNIZATION Completed [...] this topic Medical Devices Implanted Type Area Adviser Sales Device Identifier Shelf Expiration Date Model / Serial / Lot Graft Bone Infuse Bmp Sm [id number] Implanted:Qt y: 1 on 04/28/2017 by Bonnie Child MD at [facility] Bone/Tissue /Biologic Right: Ankle [employer]DANEK 09/03/2018 [id number] / [id number] / [id number] G Graft Fascia Sepideh Medium - [id number] Implanted:Qt y: 1 on 09/19/2021 by Dianna Charlton MD at [facility] Bone/Tissue /Biologic Left: Thumb MUSCULOSKELETAL [employer] 03/26/2024 [id number] / [id number] / Graft Bone Head Femoral 44mm [id number] - [id number] Implanted:Qt y: 1 on 11/11/2022 by Bonnie Child MD at [facility] Bone/Tissue /Biologic Right: Ankle MUSC[employer]OSKELET[employer] B[employer] 05/04/2026 [id number] / [id number] / Imp Scr Arthrex Blue Locking 3.5x18mm Ar-8935l-18 Implanted:Qt y: 3 on 02/03/2017 by Bonnie Child MD at [facility] Metallic Hardware/An chor Left: Foot ARTHREX AR-8935L- 18 / / AUTOCLAVE D FEBRUARY 03 2017 LOAD 42/03 Imp Scr Arthrex Can 4.0x20mm Ar-8940-20 Implanted:Qt y: 1 on 02/03/2017 by Bonnie Child MD at [facility] Metallic Hardware/An chor Left: Foot ARTHREX AR-8940-2 0 / / AUTOCLAVE D FEBRUARY 03 2017 LOAD 42/03 Imp Plate Arthrex Lapidus [id number] Implanted:Qt y: 1 on 02/03/2017 by Bonnie Child MD at [facility] Metallic Hardware/An chor Left: Foot ARTHREX AR-8941 / / AUTOCLAVE D FEBRUARY 03 2017 LOAD 42/03 Imp Staple Mmi Easyclip Si Forefoot [id number] Gkg70-03-22 - [id number] Implanted:Qt y: 1 on 09/19/2021 by Dianna Charlton MD at [facility] Metallic Hardware/An chor Left: Thumb [employer] INC 07/06/2025 IQK63-89- 13 / / [id number] Imp Staple Mmi Easyclip Si Forefoot [id number] Zmu57-80-98 - [id number] Implanted:Qt y: 1 on 09/19/2021 by Dianna Charlton MD at [facility] Metallic Hardware/An chor Left: Thumb [employer] 04/05/2025 MGK93-63- / / [id number] Nail 12mm 150mm Ankl Rt T2 Im Lck Ti Strl Arthds - [id number] Implanted:Qt y: 1 on 11/11/2022 by Bonnie Child MD at [facility] Metallic Hardware/An chor Right: Ankle [employer] [id number] 02/03/2027 9446-4339 S / / [id number] Imp Scr Strk Lock 5.0x40mm Ft 1896-5040s - [id number] Implanted:Qt y: 1 on 11/11/2022 by Bonnie Child MD at [facility] Metallic Hardware/An chor Right: Ankle [employer] [id number] 05/06/2027 2006-9114 S / / [id number] Imp Scr Strk Lock 5.0x40mm Ft 1896-5040s - [id number] Implanted:Qt y: 1 on 11/11/2022 by Bonnie Child MD at [facility] Metallic Hardware/An chor Right: Ankle [employer] [id number] 02/03/2027 6901-0460 S / / [id number] Imp Scr Strk Lock 5.0x32.5mm Ft 1896-5032s - [id number] Implanted:Qt y: 1 on 11/11/2022 by Bonnie Child MD at [facility] Metallic Hardware/An chor Right: Ankle [employer] [id number] 06/05/2027 6671-5066 S / / [id number] Imp Scr Strk Lock 5.0x85mm Ft s - [id number] Implanted:Qt y: 1 on 11/11/2022 by Bonnie Child MD at [facility] Metallic Hardware/An chor Right: Ankle [employer] [id number] 03/06/202718957526-8777 S / / [id number] Imp End Cap Strk T2 Ft Spnial Scr s - [id number] Implanted:Qt y: 1 on 11/11/2022 by Bonnie Child MD at [facility] Metallic Hardware/An chor Right: Ankle [employer] [id number] 03/06/2027 S / / [id number] Imp Insert Tornier Tibial Ankle Size 3x9mm Lt [id number] Implanted:Qt y: 1 on 02/03/2017 by Bonnie Child MD at [facility] Total Joint Component/I nsert Left: Ankle [employer] 05/03/2020 [id number] / [id number] / Imp Insert Tornier Tibial Ankle Base Size 3 [id number] Implanted:Qt y: 1 on 02/03/2017 by Bonnie Child MD at [facility] Total Joint Component/I nsert Left: Ankle [employer] 02/08/2021 QSN280 / [id number] / Imp Comp Tornier Talar Ankle Size 3 Lt [id number] Implanted:Qt y: 1 on 02/03/2017 by Bonnie Child MD at [facility] Total Joint Component/I nsert Left: Ankle [employer] 09/03/2020 CDE715 / [id number] / Imp Wire Nitin 0.045x4 78.2019 - [id number] Implanted:Qt y: 2 on 09/19/2021 by Dianna Charlton MD at [facility] Wire Left: Thumb G SOURCE 78.202 / 78.202 / [id number] Imp Wire Nitin 0.062x4 78.2030 - [id number] Implanted:Qt y: 2 on 09/19/2021 by Dianna Charlton MD at [facility] Wire Left: Thumb G SOURCE 78.203 / 78.203 / [id number] Bme Elite [id number] One Nitinol Implant For Use With [id number] Drill Bit Kit Implanted:Qt y: 1 on 02/03/2017 by Bonnie Child MD at [facility] Left: Foot 06/05/2021 EL-2020S2 / / Graft Bone Infuse Bmp Sm [id number] Implanted:Qt y: 1 on 04/24/2020 by Bonnie Child MD at [facility] Right: Ankle [employer] 03/06/2022 [id number] / / [id number] Graft Bone Infuse Bmp Lg [id number] - [id number] Implanted:Qt y: 1 on 11/11/2022 by Bonnie Child MD at [facility] Right: Ankle [employer] 07/07/2024 [id number] / / [id number] T2 3mm X 285mm K-Wire Implanted:Qt y: 1 on 11/11/2022 by Bonnie Child MD at [facility] Right: Ankle [id number] / / Explanted Type Area Adviser Sales Device Identifier Shelf Expiration Date Model / Serial / Lot Imp Insert Tornier Tibial Ankle Base Size 3 [id number] Implanted:Qty: 1 on 04/28/2017 by Bonnie Child MD at [facility] Explanted:Qty: 1 on 04/24/2020 by Bonnie Child MD at [facility] Total Joint Component /Insert Right: Ankle [employer] 02/14/2021 [id number] / [id number] / Imp Insert Tornier Tibial Ankle Size 3x11mm Rt [id number] Implanted:Qty: 1 on 04/28/2017 by Bonnie Child MD at [facility] Explanted:Qty: 1 on 04/24/2020 by Bonnie Child MD at [facility] Total Joint Component /Insert Right: Ankle [employer] 07/06/2019 TTQ676 / [id number] / Agility Total Ankle Components X3 (Discarded) Explanted:Qty: 1 on 04/28/2017 by Bonnie Child MD at [facility] Right: Ankle Kimberly Talaris Xt Size 3 Right Talar Part Short Peg Implanted:Qty: 1 on 04/28/2017 by Bonnie Child MD at [facility] Explanted:Qty: 1 on 04/24/2020 by Bonnie Child MD at [facility] Right: Ankle 04/17/2020 PSS859 / [id number] / Imp Tibial Tray, Xl, Size 3 Implanted:Qty: 1 on 04/24/2020 by Bonnie Child MD at [facility] Explanted:Qty: 1 on 11/11/2022 by Bonnie Child MD at [facility] Right: Ankle [employer] 03/11/2023 [id number] / / [id number] Imp Kimberly Talaris Tibial Insert Size 3 Right Implanted:Qty: 1 on 04/24/2020 by Bonnie Child MD at [facility] Explanted:Qty: 1 on 11/11/2022 by Bonnie Child MD at [facility] Right: Ankle TORNIER 06/22/2020 NGZ295 / [id number] / Imp Kimberly Talaris Xt Talar Part Short Peg Size 3 Right Implanted:Qty: 1 on 04/24/2020 by Bonnie Child MD at [facility] Explanted:Qty: 1 on 11/11/2022 by Bonnie Child MD at [facility] Right: Ankle TORNIER 06/14/2021 HNU789 / [id number] / Procedures Procedure Name Priority Date/Time Associated Diagnosis Comments GLUCOSE BY METER Routine 11/12/2022 1:49 AM CDT from Last 3 Months or Most Recently Relevant to Health Maintenance Results * (ABNORMAL) Glucose by meter (11/12/2022 1:49 AM CDT) GLUCOSE BY METER POCT 141(H) 70 - 99 mg/dL 11/12/2022 1:55 AM CDT LABORATORY POC Blood, Capillary BLOOD SPECIMEN / Unknown 11/12/2022 1:49 AM CDT 11/12/2022 1:55 AM CDT us Bonnie Child MD LAB - BEAKER POCT Final Re sult LABORATORY POC [facility] [address], [address] [place] [address], [facility] [phone] from Last 3 Months or Most Recently Relevant to Health Maintenance Insurance MEDICARE [employer] Advance Directives For more information, please contact: [phone] * Full Code (Latest Code Status on File) Date Activated Date Inactivated Comments 11/11/2022 11:20 AM 11/12/2022 1:08 PM All basic and advanced life-sustaining interventions are performed as appropriate Question Answer Comments Code status determined by: Discussion with patie nt/ legal decision maker * Full Code Date Activated Date Inactivated Comments 04/28/2017 1:39 PM 04/30/2017 1:09 PM * Full Code Date Activated Date Inactivated Comments 02/03/2017 4:08 PM 02/05/2017 3:35 PM Care Teams Programmer Analyst Consultant Relationship Specialty Start Date End Date Adrien Hernandez MD [address] [place] [address] PCP - General 01/06/17
--- OUTSIDE RECORDS SUMMARY | 2024-07-24 17:53 | XMS_ITS | Data Portability ---
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 Plan of Treatment Reminders Order Date Submit Date Provider Last Modified By Organization Details Last Modified Time Details Appointments ESTABLISH ED PHONE VISIT 20 2024 02:30P Angel Batista MD Not available Not available Not available Lab PSA, total, serum or plasma 2021 022 [email or web address] 0 [facility], [address] [place], [address], 04/17/2022 08:48:27 testoster one, total, serum 2021 022 [email or web address] 0 [facility], [address] [place], [address], 04/17/2022 08:48:27 PSA, total, serum or plasma 2022 023 [email or web address] 0 [facility], [address] [place], [address], 10/15/2022 08:45:23 testoster one, total, serum 2022 023 [email or web address] 0 [facility], [address] [place], [address], 10/15/2022 08:45:23 hemoglobi n (Hb), blood 2022 023 [email or web address] 0 [facility], [address] [facility], [place], [address], 10/15/2022 08:45:23 testoster one, total, serum 2022 023 [email or web address] [facility], [address] [place], [address], 04/30/2023 12:29:25 PSA, total, serum or plasma 2023 024 0 [facility], [address] [facility], [place], [address], 10/30/2023 15:14:47 testoster one, total, serum 2023 024 [email or web address] 0 [facility], [address] [facility], [place], [address], 10/30/2023 15:14:46 hemoglobi n (Hb), blood 2023 024 [email or web address] 0 [facility], [address] [place], [address], 10/30/2023 15:14:46 Referral None recorded. Procedures None recorded. Surgeries None recorded. Imaging None recorded. Medication Orders Xyosted 75 mg/0.5 mL subcutane ous auto-inje ctor 2021 022 [email or web address] [facility] #[id number], [address] [place], [place], [phone], 04/09/2022 00:08:40 Xyosted 75 mg/0.5 mL subcutane ous auto-inje ctor 2022 023 DILSHAD [facility] #55384, [address] [place], [place], [phone], 10/07/2022 11:50:48 Xyosted 75 mg/0.5 mL subcutane ous auto-inje ctor 2022 023 DILSHAD [facility]72159, [address] [place], [place], [phone], 04/07/2023 10:27:30 Xyosted 75 mg/0.5 mL subcutane ous auto-inje ctor 2023 024 DILSHAD [facility] #66319, [address] [place], [place], [phone], 10/06/2023 10:53:47 Patient TargetsNo targets recorded. Patient Instructions Encounter Date Encounter Id Patient Instructions Last Modified By Organization Details Last Modified Time 04/08/2022 [id number] Telephone - 10 minutes Not available 04/08/2022 11:04:02 10/07/2022 [id number] Telephone - 6 minutes Not available 10/07/2022 11:46:16 04/07/2023 [id number] Telephone - 7 minutes Not available 04/07/2023 10:27:29 10/06/2023 [id number] Telephone - 6 minutes Not available 10/06/2023 10:53:46 Reason for Referral None Reported. Results Created Date Observation Date Name Description Value Unit Range Abnormal Flag Note LastModifiedBy Organization Detail LastModifiedTime Result Notes None recorded. 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 Procedures Surgical History Date Name Laterality Status Provider Name and Address Organization Details Recorded Time 09/20/19 21 implantation of penile prosthesis completed Zaheer Grider [facility] 04/08/2022 10:07:35 09/20/19 21 insertion of single incision mid-urethral mini-sling completed Zaheer Grider [facility] 04/08/2022 10:08:14 10/26/19 15 prostatectomy completed Zaheer Grider [facility] 04/08/2022 10:06:57 Imaging Results None recorded. Procedure Notes None recorded. Medical Equipment None Reported. Allergies Allergen ID Allergen Name Allergen Category Reaction Reaction Severity Criticality Documentation Date Start Date Code Code System Note Provider Name and Address Organization Details Recorded Time [id number] naproxen medicatio n Not available Not available Not available 12/23/20192014 7258 RxNorm Not Available Not Available Not Available [id number] c5399 Product containin g 3-hydroxy -3-methyl glutaryl- coenzyme A reductase inhibitor (product) medicatio n myalgias (muscle pain) Not available Not available 04/08/2022 51012 009 SNOMED Not Available Not Available Not Available Medications Name Sig Start Date Stop Date [...] 1 CAPSULE BY MOUTH TWICE DAILY FOR 5 DAYS 10/05 completed Not Available Not Available Not Available ketoconazol e 2 % shampoo WASH AREA 2 TO 3 TIMES WEEKLY. LATHER AND LET SIT FOR 3 TO 5 MINUTES THEN RINSE OFF active Not Available Not Available No t Available tizanidine 2 mg tablet TAKE 1-2 TABLET BY MOUTH AT BEDTIME active Not Available Not Available No t Available azithromyci n 250 mg tablet TAKE 2 TABLETS BY MOUTH FOR 1 DAY THEN TAKE 1 TABLET BY MOUTH DAILY FOR 4 DAYS active Not Available Not Available No t Available benzonatate 200 mg capsule TAKE 1 CAPSULE BY MOUTH 2 TO 3 TIMES PER DAY NEEDED FOR COUGH 10/05 completed Not Available Not Available Not Available cephalexin 250 mg capsule TAKE 1 CAPSULE BY MOUTH FOUR TIMES DAILY 10/05 completed Not Available Not Available Not Available hydrocodone 5 mg-acetamin ophen 325 mg tablet TAKE 1-2 TABLETS BY MOUTH EVERY 4-6HR NEEDED FOR PAIN. MAX DAILY 8 TABLETS active Not Available Not Available No t [...] tablet TAKE 1 TABLET BY MOUTH EVERY DAY active Not Available Not Available No t Available ciprofloxac in 500 mg tablet TAKE 1 TABLET BY MOUTH EVERY MORNING AND 1 EVERY EVENING FOR 7 DAYS 04/08 completed Not Available Not Available Not Available omeprazole 40 mg capsule,del ayed release active Not Available Not Available Not Available aspirin 81 mg tablet,donya yed release TAKE 1 TABLET BY MOUTH TWICE DAILY. TAKE UNTIL GONE active Not Available Not Available No t Available triamcinolo ne acetonide 0.1 % topical cream APPLY A THIN LAYER TO THE AFFECTED AREA ON ARMS AND TRUNK 1-2 TIMES DAILY FOR 2 WEEKS. REPEAT NEEDED FOR FLARES 04/07 completed Not Available Not Available Not Available ketorolac 0.5 % eye drops 04/07 completed Not Available Not Available Not Available ofloxacin 0.3 % ear drops INSTILL 10 DROPPERFU L TO AFFECTED EAR EVERY DAY FOR 5 DAYS active Not Available Not Available No t Available hydromorpho ne 2 mg tablet 04/08 [...] FOOD AND SUPPLEMEN T WITH A PROBIOTIC 10/03 /2022 completed Not Available Not Available Not Available cephalexin 500 mg capsule TAKE 1 CAPSULE BY MOUTH THREE TIMES DAILY UNTIL GONE 10/07 completed Not Available Not Available Not Available tacrolimus 0.1 % topical ointment APPLY 1-2 GRAMS TO THE AFFECTED AREA ON THE ANAL REGION ONCE DAILY. active Not Available Not Available No t Available polymyxin B sulfate 10,000 unit-trimet hoprim 1 mg/mL eye drops active Not Available Not Available Not Available betamethaso ne, augmented 0.05 % topical ointment APPLY TO AFFECTED AREA 1-2X DAILY FOR 2 WEEKS. TAKE 2 WEEKS OFF. REPEAT FOR FLARES. active Not Available Not Available No t Available omeprazole 20 mg capsule,del ayed release [...] completed Not Available Not Available Not Available albuterol sulfate HFA 90 mcg/actuati on aerosol inhaler INHALE 1 TO 2 PUFFS BY MOUTH EVERY 6 HOURS NEEDED FOR SHORTNESS OF BREATH active Not Available Not Available No t Available celecoxib 100 mg capsule active Not Available Not Available Not Available bromphenira mine-pseudo ephedrine-D M 2 mg-30 mg-10 mg/5 mL oral syrup TAKE 5 MILLILITE RS BY MOUTH FOUR TIMES A DAY NEEDED FOR COUGH 04/07 completed Not Available Not Available Not Available ondansetron 4 mg disintegrat ing tablet DISSOLVE 1 TABLET ON THE TONGUE EVERY 8 HOURS active Not Available Not Available No t Available gentamicin 0.1 % topical ointment APPLY TO THE AFFECTED AREA TWICE DAILY FOR 2 WEEKS 04/07 completed Not Available Not Available Not Available diazepam 5 mg tablet TAKE 1 TABLET BY MOUTH BEFORE PROCEDURE . MAY REPEAT 1 TIME active Not Available Not Available No t Available amoxicillin 875 mg-potassiu m clavulanate 125 mg tablet TAKE 1 TABLET EVERY MORNING AND 1 TABLET EVERY EVENING WITH MEALS FOR 7 DYAS 04/08 completed Not Available Not Available Not Available oxycodone 5 mg tablet TAKE 1 TABLET BY MOUTH EVERY 4 TO 8 HOURS NEEDED FOR PAIN active Not Available Not Available No t Available moxifloxaci n 0.5 % eye drops 04/07 completed Not Available Not Available Not Available metoprolol tartrate 25 mg tablet TAKE 1 TABLET BY MOUTH TWICE DAILY 04/07 completed Not Available Not Available Not Available eszopiclone 1 mg tablet TAKE 1-2 TABLETS BY MOUTH EVERY NIGHT AT BEDTIME active Not Available Not Available No t Available budesonide- formoterol HFA 80 mcg-4.5 mcg/actuati on aerosol inhaler INHALE 2 PUFFS BY MOUTH TWICE DAILY FOR 14 DAYS 10/05 completed Not Available Not Available Not Available diclofenac 1 % topical gel APPLY 2 GRAMS TOPICALLY TO THE AFFECTED AREA FOUR TIMES DAILY active Not Available Not Available No t Available Eliquis 5 mg tablet active Not Available Not Available No t Available Stimulant Laxative Plus 8.6 mg-50 mg tablet TAKE ONE OR TWO TABLETS BY MOUTH TWICE DAILY NEEDED FOR CONSTIPAT ION WHILE USING NARCOTICS active Not Available Not Available No t Available Repatha SureClick 140 mg/mL subcutaneou s pen injector INJECT 1ML SUBCUTANE OUS EVERY 2 WEEKS active Not Available Not Available No t Available Xyosted 75 mg/0.5 mL subcutaneou s auto-inject or INJECT 0.5 ML SUBCUTANE OUS EVERY WEEK active Not Available Not Available No t Available Paxlovid 300 mg (150 mg x 2)-100 mg tablets in a dose pack TK 2 NIRMATREL VIR TS AND 1 RITONAVIR T TOGETHER PO BID FOR 5 DAYS active Not Available Not Available No t Available Vitals Date Recorded Body height Provider Name an d Address Organization Details Last Updated DateTime 04/08/2022 182.88 cm Zaheer Grider [facility] 1 10:26:12 Date Recorded Body mass index (BMI) Body weight Provider Name and Address Organization Details Last Updated DateTime 04/08/2022 27.4 kg/m2 69192.66 g Zaheer Grider [facility] 04/08/2022 10:26:15 Date Recorded Body height Provider Name an d Address Organization Details Last Updated DateTime 10/07/2022 182.88 cm Rajni Hoang [facility] 10/07/2022 10:57:41 Date Recorded Body mass index (BMI) Body weight Provider Name and Address Organization Details Last Updated DateTime 10/07/2022 27.9 kg/m2 69171.03 g Rajni Hoang [facility] 10/07/2022 10:57:49 Date Recorded Body height Provider Name an d Address Organization Details Last Updated DateTime 04/07/2023 182.88 cm Rajnifabienne Juareza [facility] 04/07/2023 10:02:34 Date Recorded Body mass index (BMI) Body weight Provider Name and Address Organization Details Last Updated DateTime 04/07/2023 27.9 kg/m2 43475.03 g Rajni Hoang [facility] 04/07/2023 10:02:38 Date Recorded Body height Provider Name an d Address Organization Details Last Updated DateTime 10/06/2023 182.88 cm Brendon Emily [facility] 10:11:57 Date Recorded Body mass index (BMI) Body weight Provider Name and Address Organization Details Last Updated DateTime 10/06/2023 27.1 kg/m2 51385.47 g Brendon Emily [facility] 10/06/2023 10:12:15 Social History Question Answer Notes LastModified by Organizat ion Details LastModified Time Tobacco Smoking Status Never [facility]oker [facility] 04/08/2022 10:05:49 What Was The Date Of Your Most Recent Tobacco Screening? 10/06/2023 Information not available 10/06/2023 Sex: Unknown Functional Status None recorded. Mental Status None recorded. Family History Nothing Reported. Medical History Condition Response Other High Blood Pressure Y Lung Disease Y Depression Y Cancer Diabetes Y Bleeding Disorder Heart Disease Y Immunizations Vaccine Type Date Status Note Provider Nam e and Address Organization Details Recorded Time Influenza, adjuvanted, quadrivalent, PF 2 completed Brendon laird [facility] 10/06/2023 10:12:19 COVID-19, mRNA, LNP-S, bivalent, PF, 30 mcg/0.3 mL dose 2 completed Brendon laird [facility] 10/06/2023 10:12:19 Influenza, adjuvanted, trivalent, PF 9 completed Rajni laird [facility] 04/07/2023 10:02:45 Influenza, adjuvanted, trivalent, PF 7 completed Rajni Hoang null, [facility] 04/07/2023 10:02:45 Influenza, adjuvanted, trivalent, PF 8 completed Rajni Hoang null, [facility] 04/07/2023 10:02:45 zoster recombinant 0 completed Rajni Hoang null, [facility] 04/07/2023 10:02:45 zoster recombinant 9 completed Rajni Hoang null, [facility] 04/07/2023 10:02:45 Influenza, adjuvanted, quadrivalent, PF 0 completed Rajni Hoang null, [facility] 04/07/2023 10:02:45 Influenza, adjuvanted, quadrivalent, PF 1 completed [facility], [facility] 04/07/[facility] 10:02:45 COVID-19, mRNA, LNP-S, PF, 30 mcg/0.3 mL dose 1 completed Rajni Hoang null, [facility] 04/07/2023 10:02:45 COVID-19, mRNA, LNP-S, PF, 30 mcg/0.3 mL dose 1 completed Rajni Hoang null, [facility] 04/07/2023 10:02:45 COVID-19, mRNA, LNP-S, PF, 30 mcg/0.3 mL dose 1 completed Rajni Hoang null, [facility] 04/07/2023 10:02:45 COVID-19, mRNA, LNP-S, PF, 30 mcg/0.3 mL dose, irwin-sucrose 2 completed Rajni Morleyoza null, [facility] 04/07/2023 10:02:45 pneumococcal polysaccharide PPV23 2 completed Rajni Hoang null, [facility] 04/07/2023 10:02:45 Tdap 7 completed [facility] Hoang null, [facility] 04/07/2023 10:02:45 Tdap 0 completed Rajni laird, [facility] 04/07/2023 10:02:45 Tdap 3 completed Rajni laird, [facility] 04/07/2023 10:02:45 Pneumococcal conjugate PCV 13 5 completed Rajni laird, [facility] 04/07/2023 10:02:45 yellow fever live 2 completed Rajni Juareza null, [facility] 04/07/2023 10:02:45 zoster live 9 completed [facility]ni laird, [facility] 04/07/2023 10:02:45 Influenza, high-dose, trivalent, PF 6 completed Rajni laird, [facility] 04/07/2023 10:02:45 Influenza, high-dose, trivalent, PF 5 completed Rajni laird, [facility] 04/07/2023 10:02:45 Influenza, split virus, trivalent, preservative 9 completed Rajni laird, [facility] 04/07/2023 10:02:45 Influenza, split virus, trivalent, preservative 0 completed Rajni laird, [facility] 04/07/2023 10:02:45 Influenza, split virus, trivalent, preservative 3 completed Rajni Juareza null, [facility] 04/07/2023 10:02:45 Influenza, split virus, trivalent, preservative 8 completed Rajni laird, [facility] 04/07/2023 10:02:45 Influenza, split virus, trivalent, preservative 7 completed Rajni laird, [facility] 04/07/2023 10:02:45 Influenza, split virus, trivalent, preservative 2 completed Rajni laird, [facility] 04/07/2023 10:02:45 Influenza, split virus, trivalent, preservative 6 completed Rajnifabienne Morleyrafal laird, [facility] 04/07/2023 10:02:45 Hep A, adult 8 completed Rajni Hoangrafal laird, [facility] 04/07/2023 10:02:45 typhoid, ViCPs 8 completed Rajni laird, [facility] 04/07/2023 10:02:45 Hep A-Hep B 2 completed Rajni laird, [facility] 04/07/2023 10:02:45 Past Encounters Encounter ID Performer Location Encounter Start Date Encounter Closed Date Diagnosis/Indication Diagnosis SNOMED-CT Code Diagnosis ICD10 Code Diagnosis Note [id number] [facility] [employer] [facility] [place] [address] 04/08/2022 10:00:51 04/11/2022 15:05:20 Carcinoma of prostate 740312943 C61 2. Prostate cancer (HC)- pT2c - Tahira 3+4 = 7 - s/p RAL prostatect xavi in October 2014- PSA remains undetectab le (< 0.03)- Follow-up in Mar 2023 with PSA Testostero ne level below reference range 270712701 R79.89 1. Low Testostero ne- testostero ne in good range- continue Xyosted 75 mg SC weekly- check Testostero ne in 6 months- need to monitor Hgb (annually) [id number] [facility] [address] [place] [address] 10/07/2022 10:57:06 10/11/2022 09:16:28 Testosterone level below reference range 620228245 R79.89 1. Low Testostero ne- testostero ne in good range- continue Xyosted 75 mg SC weekly- Follow -up in 6 months with Testostero ne and Hgb Carcinoma of prostate 25 0035161 C61 2. Prostate cancer (HC)- pT2c - Tahira 3+4 = 7 - s/p RAL prostatect xavi in October 2014- PSA remains undetectab le (< 0.03)- Follow-up in Mar 2023 with PSA [id number] Koby Batista MD [facility] [address] [place] [address] 04/07/2023 10:02:01 04/17/2023 14:02:17 Testosterone level below reference range 249366074 R79.89 1. Low Testostero ne- testostero ne in good range- continue Xyosted 75 mg SC weekly- Follow -up in 6 months with Testostero ne Carcinoma of prostate 25 4032268 C61 2. Prostate cancer (HC)- pT2c - Trafford 3+4 = 7 - s/p RAL prostatect xavi in October 2014- PSA remains undetectab le (< 0.03)- Follow-up in February 2024 with PSA [id number] Koby Batista MD [facility] [address] [place] [address] 10/06/2023 09:44:51 10/07/2023 09:57:47 Testosterone level below reference range 892092103 R79.89 1. Low Testostero ne- testostero ne in good range- continue Xyosted 75 mg SC weekly- Follow -up in 12 months with Testostero ne Carcinoma of prostate 25 7335339 C61 2. Prostate cancer (HC)- pT2c - Tahira 3+4 = 7 - s/p RAL prostatect xavi in October 2014- PSA (< 0.02)- remains undetectab le- Follow-up in October 2024 with PSA Health Concerns Section Related Observation LastModified by Organization Detai ls LastModified Time None Recorded Concern Status LastModified by Organization Details LastModified Time None Recorded Advance Directives Directive None Recorded Payers Encounter Date Sequence Insurance Name Policy Number Policy Ramos Covered Member ID Ramos Member ID Guarantor Name 04/08/2022 1 [employer] (MEDICARE REPLACEMENT/ ADVANTAGE - PPO) [id number] Chente Rubin [id number] Chente Erik Rubin 10/07/2022 1 [employer] (MEDICARE REPLACEMENT/ ADVANTAGE - PPO) [id number] Chente Erik Scottie [id number] Chente Erik Rubin 04/07/2023 1 [employer] (MEDICARE REPLACEMENT/ ADVANTAGE - PPO) [id number] Chente Scottie [id number] Chente Rubin 10/06/2023 1 [employer] (MEDICARE REPLACEMENT/ ADVANTAGE - PPO) [id number] Chente Rubin [id number] Chente Rubin Notes Date Note Type Note Provider Name and Address Organization Details Recorded Time 04/08/2022 text/html 76 yo male with history of prostate cancer, low testosterone, and erectile dysfunction. His prostate cancer was treated with a robot-assisted laparoscopic prostatectomy by Dr. Pulido on October 25, 2014. He was staged as a pT2c No - (Tahira 3+4 = 7) all surgical margins were negative. His PSA [...] stem-cell inject for ED in October in [place]. He tried Oxybutynin ER 5 mg daily (no changed). He has tried Androgel 50 mg daily and 100 mg daily - still has low Testosterone.09/19/20 - IPP and Coloplast male urethral sling placement ([facility] - Dr. Ashok Goins)10/08/21 - He presents today for follow-up on [...] surgery). He notes occasional discomfort in the scrotum.04/08/22 - He presents for follow-up on Prostate cancer and low testosterone. He voids every 2-3 hours during the day and 1-4x/night. He denies dysuria - has occasional urgency. He reports a small amount of urine leakage after urination - no leakage at night. PSA - < 0.03 (04/19/16)- < 0.03 (10/08/16)- < 0.03 (04/09/17)- < 0.03 (10/27/17)- < 0.03 (08/07/18)- < 0.03 (02/15/19)- < 0.03 (11/08/20)- < 0.03 (09/17/21)- < 0.03 (02/18/22)Testosterone - 177 ng (08/07/18) - Free 4.96- 271 (07/14/19)- 584 (11/08/20)- 877 (09/17/21)- 666 (02/18/22)Hgb - 13.4 (05/13/19)- 12.7 (12/07/20)- 14.7 (09/17/21)CT scan (06/13/17) revealed 3 mm Left UVJ [...] and coordinate their care. Koby Batista MD [address] [place] [address],[address], [place], [address], [facility] 04/16/2022 23:09:44 10/07/2022 text/html 77 yo male with history of prostate cancer, low testosterone, and erectile dysfunction. His prostate cancer was treated with a robot-assisted laparoscopic prostatectomy by Dr. Pulido on October 25, 2014. He was staged as a pT2c No - (Trafford 3+4 = 7) all surgical margins were negative. His PSA [...] stem-cell inject for ED in October in [place]. He tried Oxybutynin ER 5 mg daily (no changed). He has tried Androgel 50 mg daily and 100 mg daily - still has low Testosterone. 09/19/20 - IPP and Coloplast male urethral sling placement ([facility] - Dr. Ashok Goins) 04/08/22 - He [...] or standing up. PSA - < 0.03 (04/19/16)- < 0.03 (10/08/16)- < 0.03 (04/09/17)- < 0.03 (10/27/17)- < 0.03 (08/07/18)- < 0.03 (02/15/19)- < 0.03 (11/08/20)- < 0.03 (09/17/21)- < 0.03 (02/18/22) Testosterone - 177 ng (08/07/18) - Free 4.96- 271 (07/14/19)- 584 (11/08/20)- 877 (09/17/21)- 666 (02/18/22)- 771 (08/21/22) Hgb - 13.4 (05/13/19)- 12.7 (12/07/20)- 14.7 (09/17/21) CT scan (06/13/17) revealed 3 [...] and coordinate their care. Koby Batista MD [address] [place] [address],[address], [place], [address], [facility] 10/07/2022 11:50:55 04/07/2023 text/html 77 yo male with history of prostate cancer, low testosterone, and erectile dysfunction. His prostate cancer was treated with a robot-assisted laparoscopic prostatectomy by Dr. Pulido on October 25, 2014. He was staged as a pT2c No - (Tahira 3+4 = 7) all surgical margins were negative. His PSA [...] stem-cell inject for ED in October in [place]. He tried Oxybutynin ER 5 mg daily (no changed). He has tried Androgel 50 mg daily and 100 mg daily - still has low Testosterone. Prostate cancer - pT2c No Mx - Tahira 3+4=7 - s/p RALP (10/25/14) - (Dr. Pulido) - negative margins - no recurrance to date. 09/19/20 - IPP and Coloplast male urethral sling placement ([facility] - Dr. Ashok Goins) 10/07/22 - He [...] bending / standing. PSA - < 0.03 (04/19/16)- < 0.03 (10/08/16)- < 0.03 (04/09/17)- < 0.03 (10/27/17)- < 0.03 (08/07/18)- < 0.03 (02/15/19)- < 0.03 (11/08/20)- < 0.03 (09/17/21)- < 0.03 (02/18/22)- < 0.02 (02/24/23) Testosterone - 177 ng (08/07/18) - Free 4.96- 271 (07/14/19)- 584 (11/08/20)- 877 (09/17/21)- 666 (02/18/22)- 771 (08/21/22)- 715 (02/24/23) Hgb - 13.4 (05/13/19)- 12.7 (12/07/20)- 14.7 (09/17/21)- 14.5 (02/24/23) CT scan (06/13/17) revealed 3 [...] and coordinate their care. Koby Batista MD [address] [place] [address],[address], [address], [facility] 04/07/2023 10:30:16 10/06/2023 text/html 78 yo male with history of prostate cancer, low testosterone, and erectile dysfunction. His prostate cancer was treated with a robot-assisted laparoscopic prostatectomy by Dr. Pulido on October 25, 2014. He was staged as a pT2c No - ([place] 3+4 = 7) all surgical margins were negative. His PSA [...] stem-cell inject for ED in October in [place]. He tried Oxybutynin ER 5 mg daily (no changed). He has tried Androgel 50 mg daily and 100 mg daily (still had low Testosterone).He is on Xyosted 75 mg SC weekly. Prostate cancer - pT2c No Mx - [place]ira 3+4=7 - s/p RALP (10/25/14) - (Dr. Pulido) - negative margins - no recurrence to date. 09/19/20 - IPP and Coloplast male urethral sling placement ([facility] - Dr. Ashok Goins) 10/07/22 - He [...] after urination and with bending / standing. 10/06/23 - He presents for follow-up on low testosterone and Prostate cancer. He voids every 2-3 hours during the day and 1-3x/night. He notes occasional urinary incontinence. ____PSA - < 0.03 (04/19/16)- < 0.03 (10/08/16)- < 0.03 (04/09/17)- < 0.03 (10/27/17)- < 0.03 (08/07/18)- < 0.03 (02/15/19)- < 0.03 (11/08/20)- < 0.03 (09/17/21)- < 0.03 (02/18/22)- < 0.02 (02/24/23)- < 0.02 (10/01/23) Testosterone - 177 ng (08/07/18) - Free 4.96- 271 (07/14/19)- 584 (11/08/20)- 877 (09/17/21)- 666 (02/18/22)- 771 (08/21/22)- 715 (02/24/23)- 642 (10/01/23) Hgb - 13.4 (05/13/19)- 12.7 (12/07/20)- 14.7 (09/17/21)- 14.5 (02/24/23) CT scan (06/13/17) revealed 3 mm Left UVJ stone - no stones in either kidney Prior to conducting our telephone visit, the [...] and coordinate their care. Koby Batista MD [address] [place] [address],[address], [place], [address], [facility] 10/06/2023 10:54:07
--- OUTSIDE RECORDS SUMMARY | 2024-07-24 17:53 | XMS_ITS | Referral Summary ---
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 Last update 12/09/08.[employer] Allergies Active Allergy Reactions Criticality Noted Date Comments Atorvastatin Unknown 01/16/2020 Lisinopril Cough 01/16/2020 Naproxen Rash 01/16/2020 Rosuvastatin Nausea/Vomiting 01/16/2020 Medications * Be aware that medications may not be up to date as of this document. Always verify current medications with patient. apixaban (ELIQUIS) 2.5 mg oral tablet Take by mouth twice daily. Active eszopiclone (LUNESTA) 3 MG oral TABS Take by mouth. Activ e polyethyl glycol-propyl glycol (SYSTANE) 0.4-0.3 % ophthalmic solution Place 1 drop into BOTH eyes twice daily. Active pilocarpine (PILOCAR) 4% ophthalmic solution Place 1 drop into LEFT eye 4 times daily. 15 mL 6 02/17/20 21 Active triamcinolone acetonide (KENALOG) 0.1% externally cream triamcinolone acetonide 0.1 % topical cream APPLY A THIN LAYER TO THE AFFECTED AREA ON ARMS AND TRUNK 1-2 TIMES DAILY FOR 2 WEEKS. REPEAT NEEDED FOR FLARES Active testosterone enanthate (XYOSTED) 75 MG/0.5ML subcutaneous SOAJ 0.5 mL. 03/07/20 22 Active sotalol (SORINE) 80 mg oral TABS sotalol 80 mg tablet 03/07/20 22 Active pseudoeph-bromphe n-dm (BROMPHENEX DM) 30-2-10 mg/* oral syrup brompheniramine-p seudoephedrine-DM 2 mg-30 mg-10 mg/5 mL oral syrup TAKE 5 MILLILITERS BY MOUTH FOUR TIMES A DAY NEEDED FOR COUGH Active omeprazole (PRILOSEC) 20 mg oral capsule omeprazole 20 mg capsule,delayed release TAKE 1 CAPSULE BY MOUTH EVERY DAY BEFORE A MEAL 01/23/20 22 Active metroNIDAZOLE (FLAGYL) 500 mg oral TABS metronidazole 500 mg tablet TAKE 1 TABLET BY MOUTH EVERY MORNING AND 1 EVERY EVENING FOR 7 DAYS Active metoprolol (LOPRESSOR) 25 mg oral tablet metoprolol tartrate 25 mg tablet TAKE 1 TABLET BY MOUTH TWICE DAILY Active ketoconazole (NIZORAL) 2 % externally shampoo ketoconazole 2 % shampoo WASH TO THE AFFECTED AREA IN GROIN AND BUTTOCKS 2-3 TIMES WEEKLY. LATHER AND LET SIT 3-5 MINUTES BEFORE RINSING. Active GENTamicin (GARAMYCIN) 0.1% externally ointment gentamicin 0.1 % topical ointment APPLY TO THE AFFECTED AREA TWICE DAILY FOR 2 WEEKS Active evolocumab (REPATHA SURECLICK) 140 mg/mL subcutaneous pen Inject 1 mL (140 mg) subcutaneously. 04/10/20 22 Active doxycycline (VIBRAMYCIN) 100 mg oral capsule doxycycline hyclate 100 mg capsule TAKE 1 CAPSULE BY MOUTH TWO TIMES A DAY FOR 10 DAYS Active diclofenac (VOLTAREN) 1% externally gel diclofenac 1 % topical gel APPLY 2 GRAMS TOPICALLY TO THE AFFECTED AREA FOUR TIMES DAILY 12/08/19 22 Active clindamycin (CLINDAMAX) 1 % externally gel clindamycin 1 % topical gel APPLY TOPICALLY TO THE AFFECTED AREA TWICE DAILY FOR 7 DAYS Active augmented betamethasone dipropionate (DIPROLENE-AF) 0.05 % externally ointment betamethasone, augmented 0.05 % topical ointment Active amLODIPine (NORVASC) 5 mg oral TABS amlodipine 5 mg tablet 01/23/20 22 Active prednisoLONE acetate (PRED FORTE) 1% ophthalmic ophthalmic suspension Place 1 drop into LEFT eye 4 times daily. 5 mL 1 2 11:04 AM BUNG SEWER 05/21/20 Active moxifloxacin (VIGAMOX) 0.5 % ophthalmic solution Place 1 drop into LEFT eye 4 times daily. 3 mL 1 2 11:04 AM BUNG SEWER 05/21/20 22 Active ketorolac (ACULAR) 0.5 % ophthalmic solution Place 1 drop into LEFT eye 4 times daily. 5 mL 1 2 11:04 AM BUNG SEWER 05/21/20 22 Active Active Problems Problem Noted Date Diagnosed Date Myopia with presbyopia of left eye 06/20/2022 Assessment & Plan (06/20/2022 11:15 AM BUNG SEWER): Refractive Error/Presbyopia - The results of the refraction were discussed with the patient and a new prescription for bifocal/progressive spectacles was dispensed Pseudophakia, left eye 05/29/2022 Assessment & Plan (08/19/2022 10:45 AM BUNG SEWER): - 3 months s/p CE IOL of the left eye on 05/21/2022. - At one month post-op appointment had steroid response with IOP elevated to 28 in the left eye. Pred Forte was discontinued. - Today, IOP back within normal limits at 18. No need to start IOP lowering agent. - PCIOL in good position and clear. AC quiet. - Monitor Assessment & Plan (06/20/2022 11:15 AM BUNG SEWER): One month s/p CE IOL of the left eye. IOP today slightly elevated to 28 in the left eye, which may be steroid response. - Discontinue remainder of postop drops - Return in 1-2 months for IOP check -- if IOP remains elevated, consider starting IOP lowering agent Assessment & Plan (05/29/2022 9:55 AM BUNG SEWER): One week status post uncomplicated cataract surgery of the left eye; doing well with normal intraocular pressure of 20. 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 Discussed the option of cataract surgery including the risks, benefits, and perioperative cares with the patient. Given history of trauma and presence of phacodonesis, allso discussed increased risk of complications including the need for second surgery with retina. Patient expresses understanding and elects to pursue surgery. - IOL calcs from November of 2021 in [facility] for review - Of note, he has been intermittently using pilocarpine drops in the left eye - Will assist patient with surgical scheduling - Recommend follow up with Dr. Kenrick Atwood simply to establish care in the event that patient requires sutured IOL Immunizations Name Administration Dates Next Due COVID-19 MRNA Vaccine (Pfizer/COMIRNATY) suspens ion 10/04/2020,09/13/2020 Social History Tobacco Use Types Packs/Day Years Used Date Smoking Tobacco: Never Smokeless Tobacco: Never Tobacco Cessation:Counseling Given: Not Answered Sex and Gender Information Value Date Recorded Sex Assigned at Not on file Legal Sex Male 4:12 AM BUNG SEWER Gender Identity Not on file Sexual Orientation Not on file Last Filed Vital Signs Vital Sign Reading Time Taken Comments Blood Pressure 126/91 05/21/2022 10:20 AM BUNG SEWER Pulse 64 05/21/2022 10:20 AM BUNG SEWER Temperature 36.3 C (97.3 F) 05/21/2022 9:45 AM BUNG SEWER Respiratory Rate 16 05/21/2022 10:0 2 AM BUNG SEWER Oxygen Saturation 97% 05/21/2022 10: 02 AM BUNG SEWER Inhaled Oxygen Concentration - - Weight 94.7 kg (208 lb 12.8 oz) 05/21/2022 6:48 AM BUNG SEWER Height 182.9 cm (6') 05/21/2022 6:48 AM BUNG SEWER Body Mass Index 28.32 05/21/2022 6:48 AM BUNG SEWER Plan of Treatment Not on file Medical Devices Implanted Type Area Label Paster Device Identifier Shelf Expiration Date Model / Serial / Lot Lens Intraocular 20.5 Diopter - [id number] Implanted:Qty: 1 on 05/21/2022 by Navin Ramirez MD at [facility] Lens Left: Eye [employer] 01/28/2026 [id number] / [id number] / Capsular Tension Ring,Amy Mr-1420 Implanted:Qty: 1 on 05/21/2022 by Osvaldo Sparrow MD at [facility] Left: Eye [employer] 05/05/2026 [id number] / / CBLBJC Insurance MEDICARE MEDIC
--- OUTSIDE RECORDS SUMMARY | 2024-07-24 17:53 | XMS_ITS | Data Portability ---
Author Organization [facility] [employer], [facility] Address [address] [address] Assessment No assessment recorded. Plan of Treatment Reminders Order Date Submit Date Provider Last Modified By Organization Details Last Modified Time Details Appointments None recorded. Lab None recorded. Referral None recorded. Procedures None recorded. Surgeries None recorded. Imaging US, lower extremity, nonvascular 2018 019 [email or web address] Not available 9 09:58:09 XR, shoulder 2018 019 [email or web address] 2 Not available 9 09:58:09 Medication Orders None recorded. Patient TargetsNo targets recorded. Patient Instructions Encounter Date Encounter Id Patient Instructions Last Modified By Organization Details Last Modified Time 08/19/2018 [id number] knee arthritis: care instructions Not available 08/19/2018 13:50:30 shoulder pain: care instructions [email or web address] Not available 08/19/2018 13:51:25 Reason for Referral None Reported. Results Created Date Observation Date Name Description Value Unit Range Abnormal Flag Note LastModifiedBy Organization Detail LastModifiedTime 08/20/1908/20/2018 MRI, shoul abby, w/o contr ast No observ ation record ed. [facility] Not Available 2018 11:03:16 08/20/19 19 08/20/2018 MRI, cervi ondina spine , w/o contr ast No observ ation record ed. [facility]CODE Not Available 2018 11:03:16 08/20/19 19 08/20/2018 MRI, cervi ondina spine , w/o contr ast No observ ation record ed. BARCODE Not Available 2018 11:03:16 08/20/19 19 08/20/2018 MRI, shoul abby, w/o contr ast No observ ation record ed. BARCODE Not Available 2018 11:03:16 Result Notes None recorded. Procedures Surgical History None recorded. Imaging Results Imaging Date Name Status LastModified by Organiz ation Details LastModified Time 08/20/2018 MRI, shoulder, w/o contrast completed [facility] Information not available 08/20/2018 11:03:16 08/20/2018 MRI, cervical spine, w/o contrast completed [facility] Information not available 08/20/2018 11:03:16 08/20/2018 MRI, cervical spine, w/o contrast completed [facility] Information not available 08/20/2018 11:03:16 08/20/2018 MRI, shoulder, w/o contrast completed [facility] Information not available 08/20/2018 11:03:16 Procedure Notes None recorded. Medical Equipment None Reported. Allergies No known drug allergies Medications Name Sig Start Date Stop Date Status Note LastModified by Organization Details LastModified Time hydrocodone 5 mg-acetamino phen 325 mg tablet Take 1 tablet every 6 hours by oral route as needed. 2018 active Not Available Not Available Not Avai lable cephalexin 500 mg capsule Take 4 capsules (total of 2g) po one hour prior to procedure. One time dose. 2018 active Not Available Not Available Not Avai lable diazepam 10 mg tablet Take 1 tablet(s) 30 mins PRIOR to appointment PRN and repeat as directed by physician. 2018 active Not Available Not Available Not Avai lable Vitals None Recorded Social History None recorded. Functional Status None recorded. Mental Status None recorded. Family History Nothing Reported. Medical History Condition Response HIV or AIDS N Coronary Artery Disease N Gout N Kidney Stones N Hyperthyroidism N Hernia N Head Trauma/Injury N COPD N Blood Clots N Lung Disease N Hypothyroidism N Depression N Pacemaker N Anxiety Disorder N Arthritis Y Cancer N Stroke N Neck Injury N Leg or Foot Ulcers N High Cholesterol N Liver Disease N Rheumatoid Arthritis N Headaches N Fibromyalgia N Kidney Disease N Heart Problems N Migraines N Thyroid Problems N Anemia N Multiple Sclerosis N Tendon Tear N Ulcers N Heart Attack (MS) N Diabetes N Bleeding Disorder N Seizures/Epilepsy N Tuberculosis N Urinary Tract Infection N Back Problems N Diverticulitis N Asthma N Lupus N Peripheral Vascular Disease N Sleep Disorder N GERD/Reflux N Hepatitis N Aneurysm N Heart Disease N Pulmonary Embolism N Hypertension N Osteoporosis N Past Encounters Encounter ID Performer Location Encounter Start Date Encounter Closed Date Diagnosis/Indication Diagnosis SNOMED-CT Code Diagnosis ICD10 Code Diagnosis Note [id number] [facility] [address] [place] [id number] 08/19/2018 11:55:17 08/24/2018 09:58:08 Osteoarthritis of knee 555278191 M17.0 Shoulder pain 96967033 M 25.519 Health Concerns Section Related Observation LastModified by Organization Detai ls LastModified Time None Recorded Concern Status LastModified by Organization Details LastModified Time None Recorded Advance Directives Directive None Recorded Payers Encounter Date Sequence Insurance Name Policy Number Policy Ramos Covered Member ID Ramos Member ID Guarantor Name 08/19/2018 1 MEDICA CHOICE [facility] - CHOICE PLUS (POS) [id number] Chente Rubin [id number] Chente Rubin 08/19/2018 2 MEDICARE [place]: [place] Chente Rubin [id number] Chente Rubin Notes Date Note Type Note Provider Name and Address Organization Details Recorded Time 08/19/2018 text/html See Dictated NoteReported bypatient.Notes:SE E DICTATED NOTES Not Available [facility] 08/24/2018 09:19:31
--- OUTSIDE RECORDS SUMMARY | 2024-07-24 17:53 | XMS_ITS | Clinical Summary ---
Author Organization [employer] 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 Last update 12/09/08.[employer] Allergies Active Allergy Reactions Criticality Noted Date [...] daily. 5 mL 1 2 11:04 AM CO[facility]ATOR [facility] SERVICES 05/21/20 Active moxifloxacin (VIGAMOX) 0.5 % ophthalmic solution Place 1 drop into LEFT eye 4 times daily. 3 mL 1 2 11:04 AM [facility] SERVICES 05/21/20 22 Active ketorolac (ACULAR) 0.5 % ophthalmic solution Place 1 drop into LEFT eye 4 times daily. 5 mL 1 2 11:04 AM [facility]OP[facility] SERVICES 05/21/20 22 Active Active Problems Problem Noted Date Diagnosed Date Myopia with presbyopia of left eye 06/20/2022 Assessment & Plan (06/20/2022 11:15 AM COORDINATOR CARDIOPULMONARY SERVICES): Refractive Error/Presbyopia - The results of the refraction were discussed with the patient and a new prescription for bifocal/progressive spectacles was dispensed Pseudophakia, left eye 05/29/2022 Assessment & Plan (08/19/2022 10:45 AM COORDINATOR CARDIOPULMONARY SERVICES): - 3 months s/p CE IOL of [...] Monitor Assessment & Plan (06/20/2022 11:15 AM COORDINATOR CARDIOPULMONARY SERVICES): One month s/p CE IOL of the left eye. IOP today slightly elevated to 28 in the left eye, which may be steroid response. - Discontinue remainder of postop drops - Return in 1-2 months for IOP check -- if IOP remains elevated, consider starting IOP lowering agent Assessment & Plan (05/29/2022 9:55 AM COORDINATOR CARDIOPULMONARY SERVICES): One week status post uncomplicated cataract surgery [...] on file Legal Sex Male 4:12 AM COORDINATOR CARDIOPULMONARY SERVICES Gender Identity Not on file Sexual Orientation Not on file Last Filed Vital Signs Vital Sign Reading Time Taken Comments Blood Pressure 126/91 05/21/2022 10:20 AM COORDINATOR CARDIOPULMON[facility] SERVICES Pulse 64 05/21/2022 10:20 AM CO[facility]OP[facility] SERVICES Temperature 36.3 C (97.3 F) 05/21/2022 9:45 AM COORD[facility]ATOR [facility]IOP[facility] SERVICES Respiratory Rate 16 05/21/2022 10:0 2 AM COORDINATOR [facility]IOP[facility]MON[facility] SERVICES Oxygen Saturation 97% 05/21/2022 10: 02 AM COORD[facility]ATOR [facility]IOP[facility]MON[facility] SERVICES Inhaled Oxygen Concentration - - Weight 94.7 kg (208 lb 12.8 oz) 05/21/2022 6:48 AM CO[facility]IOP[facility] SERVICES Height 182.9 cm (6') 05/21/2022 6:48 AM CO[facility]OP[facility] Body Mass Index 28.32 05/21/2022 6:48 AM CO[facility]ATOR [facility]IOP[facility]MON[facility] SERVICES Plan of Treatment Health Maintenance Due Date Last Done Comments Dental Oral Exam 1947 Dental Prophylaxis 1947 Dental X-Ray: Bitewings 1945 Hepatitis C Screening 1947 Periodontal Maintenance 1961 PREVENTATIVE VISIT 1965 HEALTH MAINTENANCE PROTOCOL 1966 Imm: HepB (2 of 3 - 19+ 3-dose series) 10/11/2011 09/13/2011, 08/30/2011, 08/23/2011 Osteoporosis Screening (Dexa Scan) 2012 Imm: Pneumonia greater than 65 years (2 of 2 - PCV) 06/11/2013 06/11/2012 Imm: COVID-19 (2023- season) 2024 05/16/2022, 12/07/2021, 05/07/2021, Additional history exists Imm: Flu (#1) 03/07/2024 04/13/2018, 04/06, 04/24/2015, Additional history exists Medicare Annual Wellness 04/14/2024 023, 07/16/2021, 05/01/2020 Imm: DTaP/Tdap (5 - Td or Tdap) 01/15/2030 01/16/2020, 02/19/2013, 10/31/2006, Additional history exists Imm: HepA Aged Out 07/29/2017, 03/2012, 08/30/2011, Additional history exists No longer eligible based on patient's age to complete this topic Imm: Zoster Completed 08/03/2019, 05/24/2019 Imm: HPV Aged Out No longer eligi ble based on patient's age to complete this topic Imm: Hib Aged Out No longer eligi ble based on patient's age to complete this topic Imm: Meningitis Aged Out No longer el igible based on patient's age to complete this topic Medical Devices Implanted Type Area Biosecurity Officer Device Identifier Shelf Expiration Date Model / Serial / Lot Lens Intraocular 20.5 Diopter - [id number] Implanted:Qty: 1 on 05/21/2022 by [facility] L[facility] Left: Eye [employer] 01/28/2026 [id number] / [id number] / Capsular Tension RingAmy Mr-1420 Implanted:Qty: 1 on 05/21/2022 by Osvaldo Sparrow MD at [facility] Left: Eye [employer] 05/05/2026 [id number] / / CBLBJC Insurance MEDICARE [facility]
--- OUTSIDE RECORDS SUMMARY | 2024-07-24 17:54 | XMS_ITS | Referral Summary ---
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 Shelf Expiration Date Model / Serial / Lot Graft Bone Infuse Bmp Sm [id number] Implanted:Qt y: 1 on 04/28/2017 by Bonnie Child MD at [facility] Bone/Tissue /Biologic Right: Ankle [employer]DANEK 09/03/2018 [id number] / [id number] / [id number] G Graft Fascia Sepideh Medium - [id number] Implanted:Qt y: 1 on 09/19/2021 by Dianna Charlton MD at [facility] Bone/Tissue /Biologic Left: Thumb MUSCULOSKELETAL [employer] 03/26/2024 [id number] / [id number] / Graft Bone Head Femoral 44mm [id number] - [id number] Implanted:Qt y: 1 on 11/11/2022 by Bonnie Child MD at [facility] Bone/Tissue /Biologic Right: Ankle MUSCULOSKELETAL BAEZA 05/04/2026 [id number] / [id number] / Imp Scr Arthrex Blue Locking 3.5x18mm Ar-8935l-18 Implanted:Qt y: 3 on 02/03/2017 by Bonnie Child MD at [facility] Metallic Hardware/An chor Left: Foot ARTHREX AR-8935L- 18 / / AUTOCLAVE D FEBRUARY 03 2017 LOAD 42/03 Imp Scr Arthrex Can 4.0x20mm Ar-8940-20 Implanted:Qt y: 1 on 02/03/2017 by Bonnie Child MD at [facility] Metallic Hardware/An chor Left: Foot ARTHREX AR-8940-2 0 / / AUTOCLAVE D FEBRUARY 03 2017 LOAD 42/03 Imp Plate Arthrex Lapidus [id number] Implanted:Qt y: 1 on 02/03/2017 by Bonnie Child MD at [facility] Metallic Hardware/An chor Left: Foot ARTHREX AR-8941 / / AUTOCLAVE D FEBRUARY 03 2017 LOAD 42/03 Imp Staple Mmi Easyclip Si Forefoot [id number] Lfu62-57-93 - [id number] Implanted:Qt y: 1 on 09/19/2021 by Dianna Charlton MD at [facility] Metallic Hardware/An chor Left: Thumb [employer] 07/06/2025 RJO96-08- 13 / / [id number] Imp Staple Mmi Easyclip Si Forefoot [id number] Euf12-52-96 - [id number] Implanted:Qt y: 1 on 09/19/2021 by Dianna Charlton MD at [facility] Metallic Hardware/An chor Left: Thumb [employer] 04/05/2025 LER29-45- 13 / / [id number] Nail 12mm 150mm Ankl Rt T2 Im Lck Ti Strl Arthds - [id number] Implanted:Qt y: 1 on 11/11/2022 by Bonnie Child MD at [facility] Metallic Hardware/An chor Right: Ankle [employer] [id number] 02/03/2027 3671-9489 S / / [id number] Imp Scr Strk Lock 5.0x40mm Ft 1895040s - [id number] Implanted:Qt y: 1 on 11/11/2022 by Bonnie Child MD at [facility] Metallic Hardware/An chor Right: Ankle [employer] [id number] 05/06/2027 8504-8737 S / / [id number] Imp Scr Strk Lock 5.0x40mm Ft 1896-5040s - [id number] Implanted:Qt y: 1 on 11/11/2022 by Bonnie Child MD at [facility] Metallic Hardware/An chor Right: Ankle [employer] [id number] 02/03/2027 4478-8534 S / / [id number] Imp Scr Strk Lock 5.0x32.5mm Ft 1896-5032s - [id number] Implanted:Qt y: 1 on 11/11/2022 by Bonnie Child MD at [facility] Metallic Hardware/An chor Right: Ankle [employer] [id number] 06/05/2027 3985-9396 S / / [id number] Imp Scr Strk Lock 5.0x85mm Ft 5085s - [id number] Implanted:Qt y: 1 on 11/11/2022 by Bonnie Child MD at [facility] Metallic Hardware/An chor Right: Ankle [employer] [id number] 03/06/2027 1047-0954 S / / [id number] Imp End Cap Strk T2 Ft Spnial Scr 182-0003s - [id number] Implanted:Qt y: 1 on 11/11/2022 by Bonnie Child MD at [facility] Metallic Hardware/An chor Right: Ankle [employer] [id number] 03/06/2027 6269-9867 S / / [id number] Imp Insert Tornier Tibial Ankle Size 3x9mm Lt [id number] Implanted:Qt y: 1 on 02/03/2017 by Bonnie Child MD at [facility] Total Joint Component/I nsert Left: Ankle [employer] 05/03/2020 [id number] / [id number] / Imp Insert Tornier Tibial Ankle Base Size 3 [id number] Implanted:Qt y: 1 on 02/03/2017 by Bonnie Child MD at [facility] Total Joint Component/I nsert Left: Ankle [employer] 02/08/2021 RMT571 / [id number] / Imp Comp Tornier Talar Ankle Size 3 Lt [id number] Implanted:Qt y: 1 on 02/03/2017 by Bonnie Child MD at [facility] Total Joint Component/I nsert Left: Ankle [employer] 09/03/2020 ZSB563 / [id number] / Imp Wire Nitin 0.045x4 78.2020 - [id number] Implanted:Qt y: 2 on 09/19/2021 by Dianna Charlton MD at [facility] Wire Left: Thumb G SOURCE 78.202 / 78.202 / [id number] Imp Wire Nitin 0.062x4 78.2030 - [id number] Implanted:Qt y: 2 on 09/19/2021 by Dianna Charlton MD at [facility] Wire Left: Thumb G SOURCE 78.203 / 78.203 / [id number] Bme Elite [id number] One Nitinol Implant For Use With Dk-300 Drill Bit Kit Implanted:Qt y: 1 on 02/03/2017 by Bonnie Child MD at [facility] Left: Foot 06/05/2021 [id number] / / Graft Bone Infuse Bmp Sm [id number] Implanted:Qt y: 1 on 04/24/2020 by Bonnie Child MD at [facility] Right: Ankle [employer] 03/06/2022 [id number] / / [id number] Graft Bone Infuse Bmp Lg [id number] - [id number] Implanted:Qt y: 1 on 11/11/2022 by Bonnie Child MD at [facility] Right: Ankle [employer] 07/07/2024 [id number] / / [id number] Y T2 3mm X 285mm K-Wire Implanted:Qt y: 1 on 11/11/2022 by Bonnie Child MD at [facility] Right: Ankle 1502-6363 / / Explanted 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 Chemical Cleaning Device Identifier Shelf Expiration Date Model / Serial / Lot Imp Insert Tornier Tibial Ankle Base Size 3 [id number] Implanted:Qty: 1 on 04/28/2017 by Bonnie Child MD at [facility] Explanted:Qty: 1 on 04/24/2020 by Bonnie Child MD at [facility] Total Joint Component /Insert Right: Ankle [employer] 02/14/2021 [id number] / [id number] / Imp Insert Tornier Tibial Ankle Size 3x11mm Rt [id number] Implanted:Qty: 1 on 04/28/2017 by Bonnie Child MD at [facility] Explanted:Qty: 1 on 04/24/2020 by Bonnie Child MD at [facility] Total Joint Component /Insert Right: Ankle [employer] 07/06/2019 [id number] / [id number] / Agility Total Ankle Components X3 (Discarded) Explanted:Qty: 1 on 04/28/2017 by Bonnie Child MD at [facility] Right: Ankle Kimberly Talaris Xt Size 3 Right Talar Part Short Peg Implanted:Qty: 1 on 04/28/2017 by Bonnie Child MD at [facility] Explanted:Qty: 1 on 04/24/2020 by Bonnie Child MD at [facility] Right: Ankle 04/17/2020 GWJ527 / [id number] / Imp Tibial Tray, Xl, Size 3 Implanted:Qty: 1 on 04/24/2020 by Bonnie Child MD at [facility] Explanted:Qty: 1 on 11/11/2022 by Bonnie Child MD at [facility] Right: Ankle [employer] 03/11/2023 [id number] / / [id number] Imp Kimberly Talaris Tibial Insert Size 3 Right Implanted:Qty: 1 on 04/24/2020 by Bonnie Child MD at [facility] Explanted:Qty: 1 on 11/11/2022 by Bonnie Child MD at [facility] Right: Ankle TOR[employer]ER 06/22/2020 KKU865 / [id number] / Imp Kimberly Talaris Xt Talar Part Short Peg Size 3 Right Implanted:Qty: 1 on 04/24/2020 by Bonnie Child MD at [facility] Explanted:Qty: 1 on 11/11/2022 by Bonnie Child MD at [facility] Right: Ankle TORNIER 06/14/2021 MIJ427 / [id number] / Procedures Procedure Name Priority Date/Time Associated Diagnosis Comments GLUCOSE BY METER Routine 11/12/2022 1:49 AM CDT from Last 3 Months or Most Recently Relevant to Health Maintenance Results * (ABNORMAL) Glucose by meter (11/12/2022 1:49 AM CDT) [facility] Signature GLUCOSE BY METER POCT 141(H) 70 - 99 mg/dL 11/12/2022 1:55 AM CDT LABORATORY POC Blood, Capillary BLOOD SPECIMEN / Unknown 11/12/2022 1:49 AM CDT 11/12/2022 1:55 AM CDT Bonnie Child MD LAB - [facility] POCT Final Re sult LABORATORY POC [facility] [address], [address] [place] [address], [facility] [phone] from Last 3 Months or Most Recently Relevant to Health Maintenance Insurance MEDICARE MEDICA [employer] SOLUTION Advance Directives For more information, please contact: [phone] * Full Code (Latest Code Status on File) Date Activated Date Inactivated Comments 11/11/2022 11:20 AM 11/12/2022 1:08 PM All basic and advanced life-sustaining interventions are performed as appropriate Question Answer Comments Code status determined by: Discussion with castilloe nt/ legal decision maker * Full Code Date Activated Date Inactivated Comments 04/28/2017 1:39 PM 04/30/2017 1:09 PM * Full Code Date Activated Date Inactivated Comments 02/03/2017 4:08 PM 02/05/2017 3:35 PM Care Teams Signalman Relationship Specialty Start Date End Date Adrien Hernandez MD [address] [place] [address] PCP - General 01/06/17
[2024-07-24 18:16] LABS: Troponin, Point-of-Care* 0.04 ng/ml (0.01-0.04)
[2024-07-24 18:23] LABS: Basophils Absolute Auto 0.04 K/uL (0.00-0.30); Basophils Percent Auto 0.6 % (0.0-3.0); Eosinophils Absolute Auto 0.33 K/uL (0.00-0.50); Hemoglobin* 16.2 gm/dL (13.5-17.5); Immature Granulocytes Abs Auto 0.02 K/uL (0.00-0.30); Immature Granulocytes Pct Auto 0.3 %; Lymphocytes Percent Auto 11.9 % (20-44); Mean Corpuscular HGB Conc 33 gm/dL (32-36); Mean Corpuscular Hemoglobin 31 pg (26-34); Mean Corpuscular Volume 94 fL (80-100); Neutrophils Absolute Auto 4.51 K/uL (1.7-7.0); Neutrophils Percent Auto 68.2 % (42.0-72.0); Platelet Count* 200 K/uL (140-440); RDW Coefficient of Variation % 13.5 % (11.5-15.5); Red Blood Count 5.24 m/uL (4.30-5.90); White Blood Count* 6.62 K/uL (4.50-11.00)
[2024-07-24 18:24] LABS: Chloride* 104 mmol/L (96-114); Sodium* 138 mmol/L (135-149)
[2024-07-24 18:26] LABS: Estimated Glomerular Filt Rate 78 ml/min
[2024-07-24] MEDS: 0.9 % SODIUM CHLORIDE 500 ML 500 ML IV (18:26)
[2024-07-24 18:27] LABS: Anion Gap 6 mEq/L (7-15); Blood Urea Nitrogen* 16 mg/dL (7-30); Calcium* 9.2 mg/dL (8.4-10.6); Carbon Dioxide* 28 mmol/L (20-32); Glucose* 93 mg/dL (60-115)
[2024-07-24 18:28] LABS: Slide Review Reflex No
[2024-07-24] MEDS: METOPROLOL TARTRATE 1 MG/ML inj 2.5 MG IVP (18:30)
[2024-07-24 18:37] LABS: NT Pro B Type NatriureticPept* 408 pg/mL
[2024-07-24] MEDS: ETOMIDATE 2 MG/ML inj 10 MG IVP (19:26)
[2024-07-24 19:38] LABS: Albumin* 4.4 g/dL (3.3-5.0)
[2024-07-24 19:41] LABS: Alkaline Phosphatase* 84 U/L (40-150); Aspartate Amino Transferase* 38 U/L (12-35); Bilirubin Direct* 0.3 mg/dL (0.0-0.5); Bilirubin Total* 0.7 mg/dL (0.1-1.5); Total Protein* 7.4 g/dL (6.0-8.3)
[2024-07-24 19:42] LABS: Alanine Aminotransferase* 26 U/L (4-50)
== END 2024-07-24 20:21 | disposition home or self-care (01) ==
PROVIDERS: Emergency Provider Family Medicine; PCP Surgery
DX: I48.91 Unspecified atrial fibrillation (principal); I35.0 Nonrheumatic aortic (valve) stenosis
CPT/HCPCS: 92960; 36415; 80048; 80076; 83735; 83880; 84443; 84484; 85025; 93005; 96374; 96375; 99156; 99284; 99285; J3475; J7030

== ENCOUNTER 2024-07-27 12:45 | Emergency (ER) | payer MEDICARE, OTHER, SELFPAY ==
[2024-07-27] VITALS (22 sets, daily range): BP systolic 113–165; BP diastolic 81–137; PULSE 69–111; RESP 16; TEMP 36.8; O2SAT 92–100; BMI 27.8
--- NOTE | 2024-07-27 13:17 | CRLHL7_ITS ---
For Patients: As a result of the Century Cures Act, medical imaging exams and procedure reports are released immediately into your electronic medical record. You may view this report before your referring provider. If you have questions, please contact your health care provider. INDICATION: Dyspnea. TECHNIQUE: Chest radiographs, 2 views. COMPARISON: Chest radiographs 07/25/2023. FINDINGS: Cardiovascular/Mediastinum: Normal heart size. Unremarkable. Lungs: No focal consolidation. Airways: Trachea remains midline. Pleura: No pleural effusions or pneumothorax. Bones: No acute osseous abnormalities. Upper abdomen: Unremarkable. IMPRESSION: No acute cardiopulmonary process. Dictated by Mason Cruz MD @ 07/27/2024 2:08:34 PM (Electronically Signed)
--- NOTE | 2024-07-27 13:39 | ED_ITS ---
HPI - Arrhythmia/Palpitations General Date Seen: 07/27/24 Chief Complaint: Arrhythmia/Palpitations Stated Complaint: AFIB Time Seen by Provider: 07/27/24 12:48 Source: patient and family Mode of arrival: ambulatory Limitations: no limitations History of Present Illness HPI narrative: Patient is a 79-year-old gentleman who presents here with resumption of his atrial fibrillation, he was seen 3 days ago here for much the same thing, at that time his asthma wall, was stopped, he was started on amiodarone he has had 3 doses total of the amiodarone since then. He was also cardioverted at that point, he feels that he went back into atrial fibrillation last evening around 7:30 p.m... Is been fairly controlled rate of approximately 100-120, denies any chest pain shortness of breath, this is been ongoing problem for can not unfortunately, is followed by [facility] sees , it has been talked about he will undergo cardiac ablation, he actually called there today, they directed him to the ER to at least get an EKG. Denies using any alcohol at all, no cold medications, does not think he has been dehydrated. She taking his medications as directed. Maybe slightly shortness of breath. Does have a history of moderate aortic stenosis, Previous Watchman procedure, non anti coagulant MD complaint: rapid heart beat, palpitations and atrial fibrillation Onset (ago): hour(s) Context: occurred during rest Arrhythmia history: atrial fibrillation and history of electrical cardioversion Associated symptoms: shortness of breath Treatments prior to arrival: amiodarone Related Data Home Medications ?Medication ?Instructions ?Recorded ?Confirmed amlodipine 5 mg tablet 5 mg PO DAILY 07/10/22 07/27/24 eszopiclone 1 mg tablet 1 mg PO HS 07/10/22 07/27/24 evolocumab 140 mg/mL subcutaneous 140 mg subcut Q14D 07/10/22 07/27/24 pen injector (Jarod Rodriguez) testosterone enanthate 75 mg/0.5 75 mg subcut Q7D 07/10/22 07/27/24 mL subcutaneous auto-injector (Xyosted) aspirin 81 mg capsule 81 mg PO DAILY 10/12/22 07/27/24 celecoxib 100 mg capsule 100 mg PO BID PRN 07/17/23 07/27/24 omeprazole 40 mg capsule,delayed 40 mg PO DAILY 07/21/23 07/27/24 release betamethasone, augmented 0.05 % topical 07/27/24 topical ointment clobetasol 0.05 % topical cream topical 07/27/24 tacrolimus 0.1 % topical ointment 1 - 2 topical DAILY 07/27/24 Previous Rx's ?Medication ?Instructions ?Recorded amiodarone 200 mg tablet 200 mg PO DAILY #30 tabs 07/24/24 Allergies Allergy/AdvReac Type Severity Reaction Status Date / Time latex Allergy Unknown Verified 07/27/24 13:00 atorvastatin Allergy Verified 07/27/24 13:00 lisinopril Allergy Verified 07/27/24 13:00 naproxen Allergy Nausea Verified 07/27/24 13:00 rosuvastatin Allergy Verified 07/27/24 13:00 Review of Systems Status of ROS: Reports: 10 or more systems reviewed and unremarkable except as noted in History and below [facility] Medical History Health care directive on file ?Z78.9 - Other specified health status (ICD-10) Sarcoidosis ?D86.9 - Sarcoidosis, unspecified (ICD-10) Atrial fibrillation ?I48.91 - Unspecified atrial fibrillation (ICD-10) Chronic systolic CHF (congestive heart failure) ?I50.22 - Chronic systolic (congestive) heart failure (ICD-10) Prostate cancer ?C61 - Malignant neoplasm of prostate (ICD-10) Hypertension ?I10 - Essential (primary) hypertension (ICD-10) Pain of foot ?M79.673 - Pain in unspecified foot (ICD-10) Malaise ?R53.81 - Other malaise (ICD-10) Laceration of left side of forehead with complication ?S01.81XA - Laceration without foreign body of other part of head, initial encounter (ICD-10) Facial injury ?S09.93XA - Unspecified injury of face, initial encounter (ICD-10) 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) Chronic headache ?R51.9 - Headache, unspecified (ICD-10) ?G89.29 - Other chronic pain (ICD-10) Chronic daily headache ?R51.9 - Headache, unspecified (ICD-10) Atrial flutter with rapid ventricular response ?I48.92 - Unspecified atrial flutter (ICD-10) Atrial fibrillation with rapid ventricular response ?I48.91 - Unspecified atrial fibrillation (ICD-10) Methicillin resistant Staphylococcus aureus culture positive (03/31/19) ?Z22.322 - Carrier or suspected carrier of Methicillin resistant Staphylococcus aureus (ICD-10) Diverticulitis ?K57.92 - Diverticulitis of intestine, part unspecified, without perforation or abscess without bleeding (ICD-10) Surgical History Status post tendon repair (07/21/23) ?Z98.890 - Other specified postprocedural states (ICD-10) H/O prostatectomy (10/2014) ?Z90.79 - Acquired absence of other genital organ(s) (ICD-10) History of elbow surgery (01/19/04) ?Z98.890 - Other specified postprocedural states (ICD-10) Status post arthroscopy of left shoulder (03/02/03) ?Z98.890 - Other specified postprocedural states (ICD-10) S/P ankle joint replacement ?Z96.669 - Presence of unspecified artificial ankle joint (ICD-10) H/O elbow surgery (~09/2017) ?Z98.890 - Other specified postprocedural states (ICD-10) Social History Narrative: -Kristen What is your current living situation?: I presently have a place to live In the past 12 months, utilities in danger of being shut off: no In past 12 months, lack of transportation kept you from medical appts, meetings, work, or getting things needed for daily living: no In the past 12 mos, have been you worried that your food would run out before you had money to buy more?: never true In the past 12 mos, the food you bought just didn't last and you didn't have money to buy more?: never true Smoking Status: Never smoker Do you use any of these nicotine containing products: None Second hand tobacco smoke exposure: No How often do you have a drink containing alcohol: never AUDIT-C Alcohol total score: 0 Non-prescribed substance use: denies use Caffeine: Yes How often does anyone, including family, friends and others, physically hurt you : never How often does anyone, including family, friends and others, insult or talk down to you: never How often does anyone, including family, friends and others, threaten you with harm: never How often does anyone, including family, friends and others, scream or curse at you: never service: No Exam Narrative: Exam Narrative: On examination he is in no apparent distress he is seen in room 8, pleasant, alert oriented x3, last dated 07:30 this morning pupils equal round reactive to light lungs were redness TMs normal oropharynx normal there is no adenopathy anterior posterior chains, chest is good air entry bilateral with no wheezing crackles noted blowing holosystolic murmur is noted across the left sternal border with radiation to both aortic and left axilla. / I described as. No S 3-S4, abdomen is soft there is no guarding no organomegaly moves all extremities independently well, Const: Vital Signs, click to edit/add: Vital Signs - 24 hr 07/27/24 12:49 07/27/24 13:26 07/27/24 13:30 Temperature 98.2 F Pulse Rate 85 103 H Pulse Rate [Pulse Oximeter] 94 Respiratory Rate 16 Blood Pressure Blood Pressure [Ri ght Upper Arm] 145/81 H Pulse Oximetry 99 96 97 Oxygen Delivery Me thod Room Air 07/27/24 13:32 07/27/24 13:52 07/27/24 14:00 Temperature Pulse Rate 91 98 98 Pulse Rate [Pulse Oximeter] Respiratory Rate Blood Pressure 124/91 H Blood Pressure [Ri ght Upper Arm] Pulse Oximetry 96 96 97 Oxygen Delivery Me thod 07/27/24 14:02 07/27/24 14:15 07/27/24 14:30 Temperature Pulse Rate 94 93 97 Pulse Rate [Pulse Oximeter] Respiratory Rate Blood Pressure 113/95 H Blood Pressure [Ri ght Upper Arm] Pulse Oximetry 96 96 96 Oxygen Delivery Me thod 07/27/24 14:32 07/27/24 14:33 07/27/24 14:45 Temperature Pulse Rate 95 87 92 Pulse Rate [Pulse Oximeter] Respiratory Rate Blood Pressure 114/88 Blood Pressure [Ri ght Upper Arm] Pulse Oximetry 96 96 96 Oxygen Delivery Me thod 07/27/24 15:03 07/27/24 15:23 07/27/24 15:27 Temperature Pulse Rate 110 H Pulse Rate [Pulse Oximeter] Respiratory Rate Blood Pressure 128/89 Blood Pressure [Ri ght Upper Arm] Pulse Oximetry 95 Oxygen Delivery Me thod Room Air 07/27/24 15:30 07/27/24 15:32 07/27/24 15:45 Temperature Pulse Rate 107 H 91 108 H Pulse Rate [Pulse Oximeter] Respiratory Rate Blood Pressure 132/93 H Blood Pressure [Ri ght Upper Arm] Pulse Oximetry 98 97 92 Oxygen Delivery Me thod Documenting provider has reviewed patient's vital signs: yes Course Course ED Course: Time-out was done before the procedure, defibrillator was synchronized, 120 joules was used x1 after good sedation, this resulted in a normal sinus rhythm, on the EKG, no complications patient tolerated well. Vital Signs Vital signs: Initial Vital Signs Temperature 98.2 F 07/27/24 12:49 Temperature Source Temporal Artery Scan 07/27/24 12:49 Pulse Rate 94 07/27/24 12:49 Respiratory Rate 16 07/27/24 12:49 Blood Pressure 145/81 H 07/27/24 12:49 Blood Pressure Mean 102 07/27/24 12:49 Blood Pressure Position Sitting 07/27/24 12:49 Pulse Oximetry 99 07/27/24 12:49 Oxygen Delivery Method Room Air 07/27/24 12:49 Vital Signs Temperature 98.2 F 07/27/24 12:49 Pulse Rate 94 07/27/24 12:49 Respiratory Rate 16 07/27/24 12:49 Blood Pressure 145/81 H 07/27/24 12:49 Pulse Oximetry 99 07/27/24 12:49 Oxygen Delivery Method Room Air 07/27/24 12:49 Temperature 98.2 F 07/27/24 12:49 Pulse Rate 108 H 07/27/24 15:45 Respiratory Rate 16 07/27/24 12:49 Blood Pressure 132/93 H 07/27/24 15:32 Pulse Oximetry 92 07/27/24 15:45 Oxygen Delivery Method Room Air 07/27/24 15:23 Medications Administered Medications: Generic Name Dose Route Start Last Admin Trade Name Freq PRN Reason Stop Dose Admin Sodium Chloride 500 mls @ 500 mls/hr 07/27/24 16:10 07/27/24 15:40 0.9 % Sodium Chloride 500 Ml IV 07/27/24 17:09 500 mls/hr .Q1H ONE Administration Discontinued Medications Generic Name Dose Route Start Last Admin Trade Name Kyle PRN Reason Stop Dose Admin Etomidate 10 mg 07/27/24 15:26 07/27/24 15:57 Etomidate 2 Mg/Ml Inj IVP 07/27/24 15:27 10 mg ONCE ONE Administration Sodium Chloride 1,000 mls @ 1,000 mls/hr 07/27/24 13:30 07/27/24 15:20 0.9 % Sodium Chloride 1000 Ml IV 07/27/24 14:29 Infused .Q1H MARILYN Infusion MDM - Arrhythmia/Palpitations MDM Narrative Medical decision making narrative: Differential diagnosis includes but is not limited to psychosocial stress, thyroid abnormalities, CHF, SVT, atrial fibrillation, ventricular tachycardia and ventricular fibrillation. This includes the life-threatening complications of heart failure, V-tach, and VFib Medical Records Attestation: I reviewed the patient's medical records. Lab Data Attestation: I reviewed the patient's lab results. Lab results narrative: Initial troponin was elevated but I did repeated x1 here, came down .04 Which is very reassuring. Suspect the 1st 1 is due to strain, given his rapid AFib. I then spoke to from [facility], he recommended cardioversion again. And to continue the same dose of amiodarone, fluids and rest, he also recommended for them to call and schedule appointment with his primary provider at [facility] to consider other options shows re ablation. I went over the risks benefits and side effects well him with him, he would like to go forward we reviewed he is now post eating greater than 9 hours, I consulted my partner, . Please see her note, she used etomidate. Labs: Lab Results 07/27/24 07/27/24 07/27/24 Range/Units 13:18 13:27 13:30 WBC 5.92 (4.50-11.00) K/uL RBC 5.18 (4.30-5.90) m/uL Hgb 16.0 (13.5-17.5) gm/dL Hct 48.1 (37.0-53.0) % MCV 93 (80-100) fL MCH 31 (26-34) pg MCHC 33 (32-36) gm/dL RDW Coeff of Gin 13.3 (11.5-15.5) % Plt Count 183 (140-440) K/uL Neut % (Auto) 69.8 (42.0-72.0) % Lymph % (Auto) 12.3 L (20-44) % Mcduffie % (Auto) 12.5 H (0.0-11.0) % Eos % (Auto) 4.4 (0.0-7.0) % Baso % (Auto) 0.7 (0.0-3.0) % Neut # (Auto) 4.13 (1.7-7.0) K/uL Lymph # (Auto) 0.70 L (0.90-2.90) K/uL Mcduffie # (Auto) 0.70 (0.00-0.90) K/UL Eos # (Auto) 0.26 (0.00-0.50) K/uL Baso # (Auto) 0.04 (0.00-0.30) K/uL Abs Immat Gran (auto) 0.02 (0.00-0.30) K/uL Imm/Tot Granulo (auto) 0.3 % INR 1.01 (0.91-1.10) APTT 30 (23-33) Seconds Sodium 137 (135-149) mmol/L Potassium 3.9 (3.6-5.1) mmol/L Chloride 104 (96-114) mmol/L Carbon Dioxide 26 (20-32) mmol/L Anion Gap 7 (7-15) mEq/L BUN 16 (7-30) mg/dL Creatinine 0.9 (0.5-1.5) mg/dL Estimated Creat Clear 67.90 Estimated GFR 88 ml/min Glucose 91 (60-115) mg/dL Calcium 9.1 (8.4-10.6) mg/dL NT-Pro-B Natriuret Pep 635 pg/mL SARS-CoV-2 (PCR) Negative SARS-CoV-2 (Negative) Influenza Type A (PCR) Negative PCR FLU A (Negative) Influenza Type B (PCR) Negative PCR FLU B (Negative) RSV (PCR) Negative PCR RSV (Negative) POC Troponin I 0.07 H (0.01-0.04) ng/ml 07/27/24 Range/Units 14:58 WBC (4.50-11.00) K/uL RBC (4.30-5.90) m/uL Hgb (13.5-17.5) gm/dL Hct (37.0-53.0) % MCV (80-100) fL MCH (26-34) pg MCHC (32-36) gm/dL RDW Coeff of Gin (11.5-15.5) % Plt Count (140-440) K/uL Neut % (Auto) (42.0-72.0) % Lymph % (Auto) (20-44) % Mcduffie % (Auto) (0.0-11.0) % Eos % (Auto) (0.0-7.0) % Baso % (Auto) (0.0-3.0) % Neut # (Auto) (1.7-7.0) K/uL Lymph # (Auto) (0.90-2.90) K/uL Mcduffie # (Auto) (0.00-0.90) K/UL Eos # (Auto) (0.00-0.50) K/uL Baso # (Auto) (0.00-0.30) K/uL Abs Immat Gran (auto) (0.00-0.30) K/uL Imm/Tot Granulo (auto) % INR (0.91-1.10) APTT (23-33) Seconds Sodium (135-149) mmol/L Potassium (3.6-5.1) mmol/L Chloride (96-114) mmol/L Carbon Dioxide (20-32) mmol/L Anion Gap (7-15) mEq/L BUN (7-30) mg/dL Creatinine (0.5-1.5) mg/dL Estimated Creat Clear Estimated GFR ml/min Glucose (60-115) mg/dL Calcium (8.4-10.6) mg/dL NT-Pro-B Natriuret Pep pg/mL SARS-CoV-2 (PCR) (Negative) Influenza Type A (PCR) (Negative) Influenza Type B (PCR) (Negative) RSV (PCR) (Negative) POC Troponin I 0.02 (0.01-0.04) ng/ml ECG Data Attestation: I personally reviewed and interpreted this ECG as follows: Prior ECG tracings: available for review Interpretation: Atrial fibrillation, rapid, no acute ST wave changes, Post cardioversion at 120 joules. Normal sinus rhythm, occasional PVCs Discharge Plan Discharge Clinical Impression: Atrial fibrillation with rapid ventricular response, Encounter for cardioversion procedure Patient Disposition: Home w/ Parent or Adult Condition: Stable Instructions: A-fib (Atrial Fibrillation) (ED), Cardioversion (DC) Additional Instructions: Home rest, continue with taking year amiodarone, call [facility] tomorrow to schedule an appointment, return as needed, lots of fluids and rest, avoidance of exertion and exercising for the next 5 days. Activity Level: Light activity Prescriptions: No Action Repatha SureClick 140 mg/mL pen injector 140 mg subcut Q14D eszopiclone 1 mg tablet 1 mg PO HS Xyosted 75 mg/0.5 mL auto-injector 75 mg subcut Q7D Patient Comments: INJECT 0.5 ML SUBCUTANEOUS ONCE WEEKLY amlodipine 5 mg tablet 5 mg PO DAILY aspirin 81 mg capsule 81 mg PO DAILY celecoxib 100 mg capsule 100 mg PO BID PRN omeprazole 40 mg capsule,delayed release(DR/EC) 40 mg PO DAILY amiodarone 200 mg tablet 200 mg PO DAILY Qty: 30 0RF clobetasol 0.05 % cream topical tacrolimus 0.1 % ointment 1 - 2 topical DAILY betamethasone, augmented 0.05 % ointment topical Follow Up/Referrals: Adrien Hernandez MD [Primary Care Provider] - Stand Alone Forms: [employer] Info Instructions
[2024-07-27 13:50] LABS: Basophils Absolute Auto 0.04 K/uL (0.00-0.30); Basophils Percent Auto 0.7 % (0.0-3.0); Eosinophils Absolute Auto 0.26 K/uL (0.00-0.50); Eosinophils Percent Auto 4.4 % (0.0-7.0); Hematocrit 48.1 % (37.0-53.0); Immature Granulocytes Abs Auto 0.02 K/uL (0.00-0.30); Immature Granulocytes Pct Auto 0.3 %; Lymphocytes Percent Auto 12.3 % (20-44); Mean Corpuscular HGB Conc 33 gm/dL (32-36); Mean Corpuscular Hemoglobin 31 pg (26-34); Mean Corpuscular Volume 93 fL (80-100); Monocytes Percent Auto 12.5 % (0.0-11.0); Neutrophils Absolute Auto 4.13 K/uL (1.7-7.0); Neutrophils Percent Auto 69.8 % (42.0-72.0); Platelet Count* 183 K/uL (140-440); RDW Coefficient of Variation % 13.3 % (11.5-15.5); Red Blood Count 5.18 m/uL (4.30-5.90); White Blood Count* 5.92 K/uL (4.50-11.00)
[2024-07-27 13:53] LABS: Troponin, Point-of-Care* 0.07 ng/ml (0.01-0.04)
[2024-07-27 13:55] LABS: Slide Review Reflex No
[2024-07-27] MEDS: 0.9 % SODIUM CHLORIDE 1000 ml 1,000 ML IV (13:58)
[2024-07-27 14:07] LABS: INR 1.01 (0.91-1.10); Partial Thromboplastin Time* 30 Seconds (23-33)
[2024-07-27 14:11] LABS: Chloride* 104 mmol/L (96-114); Potassium* 3.9 mmol/L (3.6-5.1); Sodium* 137 mmol/L (135-149)
[2024-07-27 14:14] LABS: Anion Gap 7 mEq/L (7-15); Blood Urea Nitrogen* 16 mg/dL (7-30); Carbon Dioxide* 26 mmol/L (20-32); Creatinine* 0.9 mg/dL (0.5-1.5); Estimated Glomerular Filt Rate 88 ml/min
[2024-07-27 14:14] LABS: PCR FLU A Negative PCR FLU A (Negative); PCR FLU B Negative PCR FLU B (Negative); PCR RSV Negative PCR RSV (Negative); SARS PCR* Negative SARS-CoV-2 (Negative)
[2024-07-27 14:15] LABS: Calcium* 9.1 mg/dL (8.4-10.6); Glucose* 91 mg/dL (60-115)
[2024-07-27 14:26] LABS: NT Pro B Type NatriureticPept* 635 pg/mL
[2024-07-27 15:12] LABS: Troponin, Point-of-Care* 0.02 ng/ml (0.01-0.04)
[2024-07-27] MEDS: 0.9 % SODIUM CHLORIDE 500 ML 500 ML IV (15:40)
[2024-07-27] MEDS: ETOMIDATE 2 MG/ML inj 10 MG IVP (15:57)
--- NOTE | 2024-07-27 16:18 | W.ED.CHARTNO ---
ED Chart Note Chart Note Details Date: 07/27/24 Details: I was asked to attend cardioversion for atrial fibrillation and provide anesthesia for this patient. Patient had appropriate hemodynamic and respiratory monitoring. He had supplemental oxygen. Respiratory therapy was also in attendance. Patient was given 10 mg IV etomidate with good sedation. There is no concern for loss of airway or breathing. He remained hemodynamically stable. Please see separate note for cardioversion. Patient was monitored post sedation per protocol.
--- NOTE | 2024-07-27 16:21 | RESP.RT ---
Here for Cardioversion, monitoring airway. Pt pre oxygenated with 4L NC, for 25 minutes before procedure and 20 post procedure. Oximeter 100% VSS. Edwin well RR 8-15 easy and consistent. See EMR for vitals.
== END 2024-07-27 16:40 | disposition home or self-care (01) ==
PROVIDERS: Emergency Provider Family Medicine; PCP Surgery
DX: I48.20 Chronic atrial fibrillation, unspecified (principal)
CPT/HCPCS: 92960; 36415; 71046; 80048; 83880; 84484; 85025; 85610; 85730; 87631; 93005; 94761; 99156; 99285; J7030

== ENCOUNTER 2024-08-04 10:30 | Outpatient (RCR) | payer MEDICARE, OTHER, SELFPAY ==
--- NOTE | 2024-06-15 16:12 | PT.OPEX ---
PT [place] [facility] Eval PT [facility] Outpatient Eval Start: 06/15/24 08:33 Freq: Status: Active Protocol: Document 06/15/24 12:44 YUSUF (Rec: 06/15/24 14:10 YUSUF [id number]) E-signed By Ngozi Mcneil PT Physical Therapy Outpatient Evaluation Insurance Information Recert Due Date 09/12/24 Insurance Name Medicare B Medical Diagnosis SPONDYLOLISTHESIS W/ RADICULOPATHY Treating Diagnosis LUMBAR SPINAL STENOSIS LUMBAR PAIN Imaging Report Information -Grade 1 anterolisthesis of L5 on S1 measures approximately 4 mm. Otherwise, normal alignment. No fractures. No vertebral body loss of height. Bilateral pars defects of L5. -No suspicious osseous lesions . Normal conus terminates at L1. -T12-L1 L1-2 L2-3: No spinal canal neural foraminal narrowing. -L3-4: Disc generation posted disc bulge. Mild narrowing of spinal canal. No neural foraminal narrowing. Mild facet arthropathy. -L3-4: Disc degeneration. Modic type 2 endplate changes. Diffuse disc bulge. Mild narrowing of spinal canal. Mild right and moderate left neural foraminal narrowing. Mild facet arthropathy. -L5-S1: Disc degeneration and posterior disc bulge. No narrowing of spinal canal. No vania impingement of the traversing S1 nerve roots. Mild narrowing of the bilateral foramina. -Degenerative changes of the SI joints. IMPRESSION: 1. Grade 1 anterolisthesis of L5 on S1. Bilateral pars defects of L5. Otherwise normal alignment. No fracture 2. Lumbar spondylosis 3. At L3-4, mild narrowing of the spinal canal. Moderate narrowing of the left neural foramen 4. At L5-S1, mild narrowing of the bilateral neural foramina Referring MD ERI OCASIO Subjective Preferred Name SHANICE Subjective PATIENT REPORTS NOT HAVING PAIN DURING GOLFING BUT POST MATCH, HE REPORTED PAIN SO BAD, I COULDN'T CROSS MY LEGS AND PUT MY SOCKS ON. HE REPORTS THAT HIS SYMPTOMS HAVE GREATLY REDUCED AND ONLY HAS LINGERING PAIN IN HIS LEFT GLUT. HE IS QUESTIONING WHETHER HE SHOULD FOLLOW THROUGH WITH HIS SCHEDULED ZAHIDA WITH A REDUCTION IN SYMPTOMS. Date of Last Physician Visit 05/27/24 Current Work Status Retired Precautions Treatment Precautions/Contraindications PAST MEDICAL/SURGICAL HX: QUAD TEND REPAIR (07/21/23), TIBIOTALAR CALCANEAL FUSION ( ANKLE REPLACEMENT) (11/26), RIGHT BICEPS REPAIR (15 YRS), ELBOW SX (2003, 2017), AFIB RECENT WATCHMAN DEVICE (09/2022 ), LEFT SHOULDER SCOPE (2002), GERD, DIVERTICULITIS, REMOTE H /O OF CA (2014), ASYMMETRIC PUPILS D/T GOLF BALL TRAUMA ( 2019), MULTIJOINT OA, R/L HAMMER TOE SURGERY; CHRONIC AFIB, HTN, CHRONIC CHF, SARCOIDOSIS, H/O PROSTATE CANCER W/PROSTATECTOMY. Therapy Limitations/Systems Review Not Limited Objective Other/Pertinent Objective Posture Assessment: FWD TRUNK POSTURING, THORACIC KYPHOSIS, DECREASED LUMBAR LORDOIS LUMBAR ROM Flexion:WFL repeated flexion : UNREMARKABLE Extension:SPINAL NEUTRAL repeated ext: NT Right Sidebend: KNEE Left Sidebend: MID THIGH LE MMT Hip flexion: R 5/5 L 5/5 Hip Extension: R 4/5 L 4/5 Hip abduction: R 4/5 L 4/5 knee extension: R 4/5 L 4/5 Knee Flexion: R 4/5 L 4/5 JOINT MOBILITY/PALPATION: LUMBAR TENDERNESS AT L3-5 SPINOUS PROCESS, LEFT GLUT TENDERNESS SPECIAL TESTS Straight leg raise: (+) L Crossed straight leg raise: UNREMARKABLE Slump test: (+)L Quadrant test: NT SI/HIPI tests GRETTA (+) R/L FADIR (+) R/L SCOUR UNREMARKABLE Gillet Test: UNREMARKABLE Standing forward bend Test: UNREMARKABLE TX: SUPINE TRUNK ROTATION 3 X 15 SEC SUPINE SKTC 3 X 15 SEC SUPINE BRIDGE X 15 HLD 5 SEC SUPINE UNILATERAL BRIDGE UNABLE SUPINE DYING BAG BLE ONLY SIDE PLANK ON ELBOWS/KNEES 3 X 15 SEC ALTERNATE STDG SIDE PLANK ON ELBOW/COUNTER SUPINE HIP FLEX STRETCH 3 X 15 SEC SEATED FIGURE 4 STRETCH 3 X 15 SEC Functional Test Performed & Score [id number] Assessment Assessment/Impression PATIENT IS A [address] ERI OCASIO TO EVAL AND TREAT SPINAL STENOSIS WITH LEFT RADICULOPATHY. PATIENT DEMONSTRATES SIGNS AND SYMPTOMS CONSISTENT WITH LUMBAR SPONDYLOSIS, MULTI LEVEL DDD/DJD, NARROWING AND SPONDYLOLISTHESIS L5 ON S1 GRADE 1 ALL CONTRIBUTING TO HIS FUNCTIONAL IMPAIRMENTS OF PAIN WITH PROLONGED STDG, LUMBAR ROTATION, AND COMMUNITY AMB. PATIENT HAS NOTABLE OBJECTIVE FINDING INCLUDING FWD TRUNK POSTURING, THORACIC KYPHOSIS, DECREASED LUMBAR LORDOSIS, TIGHT HIP MUSCULATURE, + SLR, AND ON L AT 55 DEGREES WHICH ALL ARE CONTRIBUTING TO THE CLINICAL IMPRESSION. PATIENT IS A GOOD CANDIDATE FOR SKILLED PHYSICAL THERAPY TO ADDRESS AFOREMENTIONED DEFICITS ABOVE IN ORDER TO RETURN TO ASYMPTOMATIC STATUS AND RETURN TO UNRESTRICTED MVMTS. INTERVENTION IS NECESSARY BY WAY OF THERAPEUTIC EXERCISES, MANUAL THERAPY, NEUROMUSCULAR EDUCATION, LUMBAR STRENGTHENING/STABILIZATION, AND HIP STRENGTHENING/ STRETCHING. PLEASE REFER TO APPROPRIATE SECTION WITHIN THIS EVALUATION FOR COMPLETE LIST OF GOALS AND PLAN OF CARE . DISCHARGE PLAN AND CRITERIA IS FOR PATIENT TO ACHIEVE THE GOALS LISTED BELOW OR UNTIL MAX POTENTIAL MET. PATIENT VERBALIZED UNDERSTANDING AND AGREEABLE TO POC, FREQ, AND GOALS ESTABLISHED. Primary Functional Limitations LUMBAR FLEX LUMBAR ROTATION LIFTING STOOPING SQUATTING Plan of Care Rehabilitation Potential Good Physical Therapy Goals STG (4-6 WEEKS): 1. PATIENT WILL REPORT PAIN </ 3/10 DURING DAILY ACTIVITIES AND WITH DAILY PARTICIPATION WITH HIS HEP 2. PATIENT WILL REPORT THE ABILITY TO STAND >10 MIN TO ENABLE COOKING, GROOMING, AND OTHER IADL'S 3. PATIENT WILL VERBALIZE A GOOD UNDERSTANDING OF BODY MECHANICS DURING HIS DAILY ACTIVITIES ALONG WITH PROPER LIFTING TECHNIQUES FOR GOOD BACK CARE AND WITH SYMPTOM MGMT. LTG (8 WEEKS): 1. PATIENT WILL IMPROVE NOT ONLY FLEXIBILITY BUT BOTH CORE STRENGTH AND STABILITY TO IMPROVE POSTURING DURING DAILY ACTIVITIES INCLUDING IADL'S AND PEER CENTERED ACTIVITIES. 2. PATIENT WILL VERBALIZE GOOD UNDERSTANDING OF CORE STABILITY TO MAINTAIN AND FURTHER PROGRESS HIS FUNCTIONAL MOBILITY AND TOLERANCE TO PROLONGED POSITIONING. 3. PATIENT WILL DEMONSTRATE COMPLETE INDEPENDENCE AND THE ABILITY TO PROGRESS HIS HEP FOR MAINTENANCE AND CONTINUED IMPROVEMENT OF HIS CORE / BLE STRENGTH AND STABILITY. Coordination/Communication With Referral Source Treatment Plan/Direct Interventions Gait Training,Heat,Ice/Cold/ Vasopneumatic,Joint Mobilization,Manual Therapy, Neuromuscular Re-ed,Self-Care/ Home Management,Therapeutic Activities,Therapeutic Exercises Frequency/Duration 2X/WK Patient Will Be Discharged From Therapy Completion of LTG(s), Independently Progressing Evaluation Billing Untimed Code Treatment Minutes 25 PT Eval No Charge No Complexity Moderate Certification Information Initial Certification Date 06/15/24 Ending Certification Date 09/12/24 Provider Signature Required Yes Provider Signature Shows Agreement With POC & Medical Necessity Physician NPI Number Write NPI# Here Physician Comment/Change : Physician Signature & Date Requested Please Sign/Date Here
== END 2024-09-09 13:21 | disposition home or self-care (01) ==
PROVIDERS: PCP Surgery; Visit Provider Family Medicine
DX: M43.16 Spondylolisthesis, lumbar region (principal); M48.061 Spinal stenosis, lumbar region without neurogenic claudication; M54.50 Low back pain, unspecified; M79.605 Pain in left leg; M51.16 Intervertebral disc disorders with radiculopathy, lumbar region; Z51.89 Encounter for other specified aftercare
CPT/HCPCS: 97032; 97110; 97140; 97162

== ENCOUNTER 2024-08-15 12:41 | Emergency (ER) | payer MEDICARE, OTHER, SELFPAY ==
[2024-08-15] VITALS (20 sets, daily range): BP systolic 114–172; BP diastolic 79–125; PULSE 69–128; RESP 0–64; TEMP 36.4; O2SAT 93–99; BMI 27.8
--- OUTSIDE RECORDS SUMMARY | 2024-08-15 12:43 | XMS_ITS | Referral Summary ---
Author Organization [employer] Address [facility] [place] [address] Phone Care Team Providers Care Garland Machine Operator Name Role Phone Unavailable Primary Care Provider Unavailabl e Source Comments [employer] is fully rolled out on [employer]. Last update 12/09/08.[employer] Allergies Active Allergy Reactions Criticality Noted Date [...] daily. 5 mL 1 2 11:04 AM PHYSICAL THERAPIST TECHNICIAN 05/21/20 Active moxifloxacin (VIGAMOX) 0.5 % ophthalmic solution Place 1 drop into LEFT eye 4 times daily. 3 mL 1 2 11:04 AM PHYSICAL THERAPIST TECHNICIAN 05/21/20 22 Active ketorolac (ACULAR) 0.5 % ophthalmic solution Place 1 drop into LEFT eye 4 times daily. 5 mL 1 2 11:04 AM PHYSICAL THERAPIST TECHNICIAN 05/21/20 22 Active Active Problems Problem Noted Date Diagnosed Date Myopia with presbyopia of left eye 06/20/2022 Assessment & Plan (06/20/2022 11:15 AM PHYSICAL THERAPIST TECHNICIAN): Refractive Error/Presbyopia - The results of the refraction were discussed with the patient and a new prescription for bifocal/progressive spectacles was dispensed Pseudophakia, left eye 05/29/2022 Assessment & Plan (08/19/2022 10:45 AM PHYSICAL THERAPIST TECHNICIAN): - 3 months s/p CE IOL of [...] Monitor Assessment & Plan (06/20/2022 11:15 AM PHYSICAL THERAPIST TECHNICIAN): One month s/p CE IOL of the left eye. IOP today slightly elevated to 28 in the left eye, which may be steroid response. - Discontinue remainder of postop drops - Return in 1-2 months for IOP check -- if IOP remains elevated, consider starting IOP lowering agent Assessment & Plan (05/29/2022 9:55 AM PHYSICAL THERAPIST TECHNICIAN): One week status post uncomplicated cataract surgery [...] event that patient requires sutured IOL Immunizations Immunization Administration Dates Next Due COVID-19 MRNA Vaccine (Pfizer/COMIRNATY) suspens ion 10/04/2020,09/13/2020 Social History Tobacco Use Types Packs/Day Years Used Date Smoking Tobacco: Never Smokeless Tobacco: Never Tobacco Cessation:Counseling Given: Not Answered Sex and Gender Information Value Date Recorded Sex Assigned at Not on file Legal Sex Male 4:12 AM PHYSICAL THERAPIST TECHNICIAN Gender Identity Not on file Sexual Orientation Not on file Last Filed Vital Signs Vital Sign Reading Time Taken Comments Blood Pressure 126/91 05/21/2022 10:20 AM PHYSICAL THERAPIST TECHNICIAN Pulse 64 05/21/2022 10:20 AM PHYSICAL THERAPIST TECHNICIAN Temperature 36.3 C (97.3 F) 05/21/2022 9:45 AM PHYSICAL THERAPIST TECHNICIAN Respiratory Rate 16 05/21/2022 10:0 2 AM PHYSICAL THERAPIST TECHNICIAN Oxygen Saturation 97% 05/21/2022 10: 02 AM PHYSICAL THERAPIST TECHNICIAN Inhaled Oxygen Concentration - - Weight 94.7 kg (208 lb 12.8 oz) 05/21/2022 6:48 AM PHYSICAL THERAPIST TECHNICIAN Height 182.9 cm (6') 05/21/2022 6:48 AM PHYSICAL THERAPIST TECHNICIAN Body Mass Index 28.32 05/21/2022 6:48 AM PHYSICAL THERAPIST TECHNICIAN Plan of Treatment Not on file Medical Devices Implanted Type Area Senior Government Program Analyst Device Identifier Shelf Expiration Date Model / Serial / Lot Lens Intraocular 20.5 Diopter - [id number] Implanted:Qty: 1 on 05/21/2022 by Navin Ramirez MD at [facility] Lens Left: Eye [employer] 01/28/2026 [id number] / [id number] / Capsular Tension Ring,Amy [id number] Implanted:Qty: 1 on 05/21/2022 by Osvaldo Sparrow MD at [facility] Left: Eye [employer] 05/05/2026 [id number] / / [id number] Insurance MEDICARE MEDIC
--- OUTSIDE RECORDS SUMMARY | 2024-08-15 12:43 | XMS_ITS | Continuity of Care Document ---
Author Organization [facility] Address [address] [place] [id number] Phone Care Team Providers Care Digital Circuit Designer Name Role Phone Will Bran MONGE Unavailable [...] Diagnoses Date Provider Providers Copied on Encounter [facility], [address], [id number] , [place] tel: [phone] [facility] No Information 2 Dany Sotomayor. [address] [place], [place], [id number] , [place]. tel: [phone] OFFICE/OUTPATI ENT VISIT, EST [facility], [address] [place] [address] [place], [id number] , [place] tel: [phone] [facility] headache (chief complaint) Headache 8 Tish Willoughby. [facility], [place], [place], [id number] , [place]. tel: [phone] Referring Provider: Cm Mirza [facility] [address] [place] [address], [id number]. tel:[phone] OFFICE CONSULTATION [facility], [address] [place] [address], [id number] , [place] tel: [phone] [facility] headache (chief complaint) HeadacheOther extermination inspector (current) drug therapy 8 [address]. [employer], [address], [address], [place]. tel: [phone] Referring Provider: Cm Mirza [facility] [address] [place] [address], [id number]. tel:[phone] [facility], [address] [place] [address], [id number] , [place] tel: [phone] [facility] headache (chief complaint) No Information [address] [employer], [address], [place], [address], [place]. tel:[phone] Family History Family Member Type Diagnosis Age At Onset No Information Payers Payer name Insurance type Covered alliance party ID Authoriza tion(s) [employer] To 16 [id number] Social History Type Description Quantity Date Captured Comments Sex Male Smoking Status No Information Chief Complaint And Reason For Visit No Information Reason For Referral Reason For Referral No Information Plan Of Treatment Date Type Action Status Future Order: Lab Order [facility]UG ANALYSIS, URINE, WITH MED REPORT ([id number]), Ordered on: Ordered History Of Present Illness [...] medical cannabis and has worked with the [facility] dispensary. Reports he has been taking the [...] or neurologic symptoms.Tested for sleep apnea at [facility]-- no significant findings. Dr. Mirza suggested Mr. Rubin come here to explore injections and medical cannabis. States he currently takes excedrin for acute pain relief.Mr. Rubin would like [facility] to assume managment of pain care. [...] or neurologic symptoms.Tested for sleep apnea at [facility]-- no significant findings. Underwent PT at -- not helpful. Tried injections at -- not helpful. Reports previous . Has taken for addtional pain relief. Mr. is interested in and would like [facility] to assume managment of pain care. Functional Status Date Functional Assessmen t No Information Instructions Date Instruction Additional Infor mation No Information Assessments Type Assessment Date No Information Patient Care Teams Name Effective Dates (start - stop) Status Members No Information
--- OUTSIDE RECORDS SUMMARY | 2024-08-15 12:43 | XMS_ITS | Clinical Summary ---
Author Organization [employer] Address [facility] [place] [place] [address] Phone Care Team Providers Care Spout Tender Name Role Phone Unavailable Primary Care Provider Unavailabl e Source Comments [employer] is fully rolled out on [employer]. Last update 12/09/08.[employer] Allergies Active Allergy Reactions Criticality Noted Date [...] daily. 5 mL 1 2 11:04 AM TELEPHONE ORDER DISPATCHER 05/21/20 Active moxifloxacin (VIGAMOX) 0.5 % ophthalmic solution Place 1 drop into LEFT eye 4 times daily. 3 mL 1 2 11:04 AM TELEPHONE ORDER DISPATCHER 05/21/20 22 Active ketorolac (ACULAR) 0.5 % ophthalmic solution Place 1 drop into LEFT eye 4 times daily. 5 mL 1 2 11:04 AM TELEPHONE ORDER DISPATCHER 05/21/20 22 Active Active Problems Problem Noted Date Diagnosed Date Myopia with presbyopia of left eye 06/20/2022 Assessment & Plan (06/20/2022 11:15 AM TELEPHONE ORDER DISPATCHER): Refractive Error/Presbyopia - The results of the refraction were discussed with the patient and a new prescription for bifocal/progressive spectacles was dispensed Pseudophakia, left eye 05/29/2022 Assessment & Plan (08/19/2022 10:45 AM TELEPHONE ORDER DISPATCHER): - 3 months s/p CE IOL of [...] Monitor Assessment & Plan (06/20/2022 11:15 AM TELEPHONE ORDER DISPATCHER): One month s/p CE IOL of the left eye. IOP today slightly elevated to 28 in the left eye, which may be steroid response. - Discontinue remainder of postop drops - Return in 1-2 months for IOP check -- if IOP remains elevated, consider starting IOP lowering agent Assessment & Plan (05/29/2022 9:55 AM TELEPHONE ORDER DISPATCHER): One week status post uncomplicated cataract surgery [...] on file Legal Sex Male 4:12 AM TELEPHONE ORDER DISPATCHER Gender Identity Not on file Sexual Orientation Not on file Last Filed Vital Signs Vital Sign Reading Time Taken Comments Blood Pressure 126/91 05/21/2022 10:20 AM TELEPHONE ORDER DISPATCHER Pulse 64 05/21/2022 10:20 AM TELEPHONE ORDER DISPATCHER Temperature 36.3 C (97.3 F) 05/21/2022 9:45 AM TELEPHONE ORDER DISPATCHER Respiratory Rate 16 05/21/2022 10:0 2 AM TELEPHONE ORDER DISPATCHER Oxygen Saturation 97% 05/21/2022 10: 02 AM TELEPHONE ORDER DISPATCHER Inhaled Oxygen Concentration - - Weight 94.7 kg (208 lb 12.8 oz) 05/21/2022 6:48 AM TELEPHONE ORDER DISPATCHER Height 182.9 cm (6') 05/21/2022 6:48 AM TELEPHONE ORDER DISPATCHER Body Mass Index 28.32 05/21/2022 6:48 AM TELEPHONE ORDER DISPATCHER Plan of Treatment Health Maintenance Due Date Last Done Comments Dental Oral Exam 1945 Dental Prophylaxis 1945 Dental X-Ray: Bitewings 1945 Hepatitis C Screening 1947 Periodontal Maintenance 1961 PREVENTATIVE VISIT 1965 HEALTH MAINTENANCE PROTOCOL 1966 Imm: HepB (2 of 3 - 19+ 3-dose series) 10/11/2011 09/13/2011, 08/30/2011, 08/23/2011 Osteoporosis Screening (Dexa Scan) 2012 Imm: Pneumonia 50 years and older (2 of 2 - PCV) 06/11/2013 06/11/2012 [...] this topic Medical Devices Implanted Type Area Digital Media Buyer Device Identifier Shelf Expiration Date Model / Serial / Lot Lens Intraocular 20.5 Diopter - [id number] Implanted:Qty: 1 on 05/21/2022 by Navin Ramirez MD at [facility] Lens Left: Eye [employer] 01/28/2026 [id number] / [id number] / Capsular Tension RingAmy Mr-[id number] Implanted:Qty: 1 on 05/21/2022 by Osvaldo Sparrow MD at [facility] Left: Eye [employer] 05/05/2026 [id number] / / CBLBJC Insurance MEDICARE [facility]
--- OUTSIDE RECORDS SUMMARY | 2024-08-15 12:43 | XMS_ITS | Clinical Summary ---
Author Organization [facility] Address [address] [place] [address] Care Team Providers Care Paint Dipper Name Role Phone Adrien Hernandez MD Primary Care Provider [phone] Allergies Active Allergy Reactions Criticality Noted Date [...] on file Legal Sex Male 4:50 AM STEM CRUSHER Gender Identity Not on file Sexual Orientation [...] this topic Medical Devices Implanted Type Area Wood Milling Machine Operator Device Identifier Shelf Expiration Date Model / Serial / Lot Graft Bone Infuse Bmp Sm [id number] Implanted:Qt y: 1 on 04/28/2017 by Bonnie Child MD at [facility] Bone/Tissue /Biologic Right: Ankle [employer]ANEK 09/03/2018 [id number] / [id number] / [id number] G Graft Fascia Sepideh Medium - [id number] Implanted:Qt y: 1 on 09/19/2021 by Dianna Charlton MD at [facility] Bone/Tissue /Biologic Left: Thumb MUSCULOSKELETAL BAEZA 03/26/2024 [id number] / [id number] / Graft Bone Head Femoral 44mm 060074 - [id number] Implanted:Qt y: 1 on 11/11/2022 by Bonnie Child MD at [facility] Bone/Tissue /Biologic Right: Ankle MUSCULOSKELETAL BAEZA 05/04/2026 [id number] / [id number] / Imp Scr Arthrex Blue Locking 3.5x18mm Ar-8935l-18 Implanted:Qt y: 3 on 02/03/2017 by Bonnie Child MD at [facility] Metallic Hardware/An chor Left: Foot ARTHREX AR-8935L- 18 / / AUTOCLAVE D FEBRUARY 03 2017 LOAD 42/03 Imp Scr Arthrex Can 4.0x20mm Ar-8940-20 Implanted:Qt y: 1 on 02/03/2017 by Bonnie Child MD at [facility] Metallic Hardware/An chor Left: Foot ARTHREX AR-8940-2 0 / / AUTOCLAVE D FEBRUARY 03 2017 LOAD 42/03 Imp Plate Arthrex Lapidus Ar-8941 Implanted:Qt y: 1 on 02/03/2017 by Bonnie Child MD at [facility] Metallic Hardware/An chor Left: Foot ARTHREX AR-8941 / / AUTOCLAVE D FEBRUARY 03 2017 LOAD 42/03 Imp Staple Mmi Easyclip Si Forefoot 40i20e07cv Nsj90-22-99 - [id number] Implanted:Qt y: 1 on 09/19/2021 by Dianna Charlton MD at [facility] Metallic Hardware/An chor Left: Thumb [employer]OM[employer] INC 07/06/2025 FRX45-46- 13 / / [id number] Imp Staple Mmi Easyclip Si Forefoot 02s30p60xi Cup73-12-45 - [id number] Implanted:Qt y: 1 on 09/19/2021 by Dianna Charlton MD at [facility] Metallic Hardware/An chor Left: Thumb [employer] INC 04/05/2025 QXT51-51- / / [id number] Nail 12mm 150mm Ankl Rt T2 Im Lck Ti Strl Arthds - [id number] Implanted:Qt y: 1 on 11/11/2022 by Bonnie Child MD at [facility] Metallic Hardware/An chor Right: Ankle [employer] [id number] 02/03/2027 8837-5700 S / / [id number] Imp Scr Strk Lock 5.0x40mm Ft 1896-5040s - [id number] Implanted:Qt y: 1 on 11/11/2022 by Bonnie Child MD at [facility] Metallic Hardware/An chor Right: Ankle [employer] [id number] 05/06/2027 1216-9241 S / / [id number] Imp Scr Strk Lock 5.0x40mm Ft 1896-5040s - [id number] Implanted:Qt y: 1 on 11/11/2022 by Bonnie Child MD at [facility] Metallic Hardware/An chor Right: Ankle [employer] [id number] 02/03/2027 6680-8260 S / / [id number] Imp Scr Strk Lock 5.0x32.5mm Ft 1896-5032s - [id number] Implanted:Qt y: 1 on 11/11/2022 by Bonnie Child MD at [facility] Metallic Hardware/An chor Right: Ankle [employer] [id number] 06/05/2027 1046-9135 S / / [id number] Imp Scr Strk Lock 5.0x85mm Ft s - [id number] Implanted:Qt y: 1 on 11/11/2022 by Bonnie Child MD at [facility] Metallic Hardware/An chor Right: Ankle [employer] [id number] 03/06/202718956150-1616 S / / [id number] Imp End Cap Strk T2 Ft Spnial Scr s - [id number] Implanted:Qt y: 1 on 11/11/2022 by Bonnie Child MD at [facility] Metallic Hardware/An chor Right: Ankle [employer] [id number] 03/06/2027 S / / [id number] Imp Insert Tornier Tibial Ankle Size 3x9mm Lt [id number] Implanted:Qt y: 1 on 02/03/2017 by Bonnie Child MD at [facility] Total Joint Component/I nsert Left: Ankle [employer]OR[employer] INC 05/03/2020 MBL563 / [id number] / Imp Insert Tornier Tibial Ankle Base Size 3 [id number] Implanted:Qt y: 1 on 02/03/2017 by Bonnie Child MD at [facility] Total Joint Component/I nsert Left: Ankle [employer] INC 02/08/2021 IYG091 / [id number] / Imp Comp Tornier Talar Ankle Size 3 Lt [id number] Implanted:Qt y: 1 on 02/03/2017 by Bonnie Child MD at [facility] Total Joint Component/I nsert Left: Ankle TOR[employer]ER INC 09/03/2020 TJV009 / [id number] / Imp Wire Nitin 0.045x4 78.2019 - S78. Implanted:Qt y: 2 on 09/19/2021 by Dianna Charlton MD at [facility] Wire Left: Thumb G SOURCE 78.202 / 78.202 / [id number] Imp Wire Nitin 0.062x4 78.2030 - [id number] Implanted:Qt y: 2 on 09/19/2021 by Dianna Charlton MD at [facility] Wire Left: Thumb G SOURCE 78.203 / 78.203 / [id number] Bme Elite [id number] One Nitinol Implant For Use With Dk-300 Drill Bit Kit Implanted:Qt y: 1 on 02/03/2017 by Bonnie Child MD at [facility] Left: Foot 06/05/2021 EL-2020S2 / / Graft Bone Infuse Bmp Sm [id number] Implanted:Qt y: 1 on 04/24/2020 by Bonnie Child MD at [facility] Right: Ankle [employer] 03/06/2022 [id number] / / [id number] Graft Bone Infuse Bmp Lg 3076840 - [id number] Implanted:Qt y: 1 on 11/11/2022 by Bonnie Child MD at [facility] Right: Ankle [employer] 07/07/2024 [id number] / / [id number] T2 3mm X 285mm K-Wire Implanted:Qt y: 1 on 11/11/2022 by Bonnie Child MD at [facility] Right: Ankle 3454-3220 / / Explanted Type Area Wood Milling Machine Operator Device Identifier Shelf Expiration Date Model / Serial / Lot Imp Insert Tornier Tibial Ankle Base Size 3 [id number] Implanted:Qty: 1 on 04/28/2017 by Bonnie Child MD at [facility] Explanted:Qty: 1 on 04/24/2020 by Bonnie Child MD at [facility] Total Joint Component /Insert Right: Ankle [employer]OR[employer] INC 02/14/2021 UFU429 / [id number] / Imp Insert Tornier Tibial Ankle Size 3x11mm Rt [id number] Implanted:Qty: 1 on 04/28/2017 by Bonnie Child MD at [facility] Explanted:Qty: 1 on 04/24/2020 by Bonnie Child MD at [facility] Total Joint Component /Insert Right: Ankle TORNIER INC 07/06/2019 JHG687 / [id number] / Agility Total Ankle Components X3 (Discarded) Explanted:Qty: 1 on 04/28/2017 by Bonnie Child MD at [facility] Right: Ankle Kimberly Talaris Xt Size 3 Right Talar Part Short Peg Implanted:Qty: 1 on 04/28/2017 by Bonnie Child MD at [facility] Explanted:Qty: 1 on 04/24/2020 by Bonnie Child MD at [facility] Right: Ankle 04/17/2020 DYB344 / [id number] / Imp Tibial Tray, Xl, Size 3 Implanted:Qty: 1 on 04/24/2020 by Bonnie Child MD at [facility] Explanted:Qty: 1 on 11/11/2022 by Bonnie Child MD at [facility] Right: Ankle [employer] 03/11/2023 [id number] / / [id number] Imp Kimberly Talaris Tibial Insert Size 3 Right Implanted:Qty: 1 on 04/24/2020 by Bonnie Child MD at [facility] Explanted:Qty: 1 on 11/11/2022 by Bonnie Child MD at [facility] Right: Ankle TORNIER 06/22/2020 WBG497 / [id number] / Imp Kimberly Talaris Xt Talar Part Short Peg Size 3 Right Implanted:Qty: 1 on 04/24/2020 by Bonnie Child MD at [facility] Explanted:Qty: 1 on 11/11/2022 by Bonnie Child MD at [facility] Right: Ankle TORNIER 06/14/2021 GQM548 / [id number] / Procedures Procedure Name Priority Date/Time Associated [...] BEAKER POCT Final Re sult LABORATORY POC [facility] [address] floor, [address] [place] [address], [facility] [phone] from Last 3 Months or Most Recently Relevant to Health Maintenance Insurance MEDICARE [employer] Advance Directives For more information, please contact: [phone] * Full Code (Latest Code Status on [...] 4:08 PM 02/05/2017 3:35 PM Care Teams Paint Dipper Relationship Specialty Start Date End Date Adrien Hernandez MD [address] [place] [address] PCP - General 01/06/17
--- OUTSIDE RECORDS SUMMARY | 2024-08-15 12:43 | XMS_ITS | Data Portability ---
Author Organization [facility] [employer], [facility] Address [address] [address] Assessment No assessment recorded. Plan of Treatment [...] By Organization Details Last Modified Time 08/19/2018 [id number] knee arthritis: care instructions [email or web address] Not available 08/19/2018 13:50:30 shoulder pain: care instructions [email or web address] Not available 08/19/2018 13:51:25 Reason for Referral [...] Tendon Tear N Ulcers N Heart Attack ([place]) N Diabetes N Bleeding Disorder N Seizures/Epilepsy [...] SNOMED-CT Code Diagnosis ICD10 Code Diagnosis Note 000431 [facility]MAIN OFFICE [address] [place] LEA RUSSELL [address] 08/19/2018 11:55:17 08/24/2018 09:58:08 Osteoarthritis of knee 776468876 M17.0 Shoulder pain 72995767 M 25.519 Health Concerns Section Related Observation LastModified by Organization Detai ls LastModified Time None Recorded Concern Status LastModified by Organization Details LastModified Time None Recorded Advance Directives Directive None Recorded Payers Encounter Date Sequence Insurance Name Policy Number Policy Ramos Covered Member ID Ramos Member ID Guarantor Name 08/19/2018 1 MEDICA CHOICE [facility] - CHOICE PLUS (POS) [id number] Chente Rubin [id number] Chente Rubin 08/19/2018 2 MEDICARE [place]: [place]PS Chente Rubin [id number] Chente Rubin Notes Date Note Type Note Provider Name and Address Organization Details Recorded Time 08/19/2018 text/html See Dictated NoteReported bypatient.Notes:SE E DICTATED NOTES Not Available [facility] 08/24/2018 09:19:31
--- OUTSIDE RECORDS SUMMARY | 2024-08-15 12:43 | XMS_ITS | Clinical Summary ---
Author Organization [facility] Address [address] [address] Phone Care Team Providers Care Consumer Lender Name Role Phone Unavailable Primary Care Provider [...] 07/29/2017 04/02/2023 Overview (04/02/2023): Recently diagnosed at [place] Paroxysmal atrial fibrillation 04/10/2017 0 04/02/2023 Thoracic [...] Date Last Done Comments MEDICARE AWV 1945 PERTUSSIS (Standing Order) 1966 Pneumococcal Vaccine: 50+ yr s (Standing Order) (1 of 2 - PCV) 1966 Shingrix (Zoster recombinant ) vaccine (Standing [...] this topic Medical Devices Implanted Type Area Greenhouse Worker Device Identifier Shelf Expiration Date Model / Serial / Lot Watchman Flx Closure Device N/A: Heart [id number] / NA / NA Description:1.5/3T Max Spatial Gradient: 2500 gauss/cm No coil restrictions Normal Operating Mode Max whole body CARLOS: 2W/kg; whole body 3.2W/kg Scan Duration: 2W/kg whole body average CARLOS for 60min of continuous RF (a sequence or viyi-io-boqd series/scans without breaks) [facility] MRI Department 04/13/23 Insurance xaitment GROUP MEDICARE COST PART A&B
--- OUTSIDE RECORDS SUMMARY | 2024-08-15 12:43 | XMS_ITS | Clinical Summary ---
Author Organization [facility] Address [address], [place] [address] Care Team Providers Care Pre Planning Advisor Name Role Phone Adrien Hernandez MD Primary Care Provider [phone] Source Comments You are receiving this document as you are listed as the primary care provider,follow-up provider, or the patient has been referred to you for consultation.This is in compliance with the Medicare and[facility] EHR Incentive Program,which states Providers who transition their patient to another setting of careor provider of care or refers their patient to another provider of care shouldprovide summary care record for each transition of care or referral. [facility] Allergies No known active allergies Medications Medication [...] age to complete this topic Care Teams Pre Planning Advisor Relationship Specialty Start Date End Date Adrien Hernandez MD [address] [place] [address] PCP - General Family Practice 03/04/18
--- OUTSIDE RECORDS SUMMARY | 2024-08-15 12:43 | XMS_ITS | Continuity of Care Document ---
Author Organization [facility] Address [address] [address] [place] [address] Phone Care Team Providers Care Beadworker Name Role Phone Mauricio Zheng MD Unavailable [...] PillCam Capsule 1st Day Offic/outpt E&m New Mod-mn Advance Directives Directive Yes / No Effective Date File Name No Information Encounters Encounter Description Practice Location Reason(s) For Visit Diagnoses Date Provider Providers Copied on Encounter Offic/outpt E&m Estab Low-mod [facility], [address] [address], [place], [id number], [place] tel:[phone] [facility] GI Symptoms or Concerns (chief complaint) Incontinence of feces, unspecified fecal incontinence typeAbnormal bowel movement 4 Norm Martínez. [address], [place], [id number] , [place]. tel:[phone] Referring Provider: Referral Self, USE FOR SELF REFERRALS. [facility], [address] [address], [place], [id number], [place] tel:[phone] [facility] No Information 4 Josesito Willoughby. [address], [place], [id number] , [place]. tel: [phone] [facility], [address] [address], [place], [id number], [place] tel:[phone] [facility] Anemia, unspecified 1 Dena Valera. [address], [place], [id number] , [place]. tel: [phone] Referring Provider: Adrien Baig, [address] [place] [address], [address]. tel:[phone] [facility], [address] [address], [place], [id number], [place] tel:[phone] [facility] Anemia, unspecified type 1 Vandana Nunez. [address], [place], [id number] , [place]. tel: [phone] Referring Provider: Referral Self, USE FOR SELF REFERRALS. Offic/outpt E&m New Mod-hi [facility], [address] [address], [place], [id number], [place] tel:[phone] [facility] Comment (chief complaint) MelenaAnemia, unspecified typeHistory of migraine headachesHistory of atrial fibrillation 1 Vandana Nunez. [address], [place], [id number] , [place]. tel:[phone] Referring Provider: Referral Self, USE FOR SELF REFERRALS. [facility], [address] [address], [place], [id number], [place] tel:[phone] [facility] No Information 1 Leslee Silva. [address], [place], [place], [id number] , [place]. tel:[phone] Family History Family Member Type Diagnosis Age [...] ID Authoriza tion(s) [employer] Sr 16 [id number] Social History Type Description Quantity Date Captured [...] anus. He has been followed by a field crop farmworker and treated with antifungal agent. He also [...] anus. He has been followed by a field crop farmworker and treated with antifungal agent. He also [...]
--- NOTE | 2024-08-15 12:44 | ED.GENADULT ---
HPI - General Adult General Date Seen: 08/15/24 Chief complaint: Arrhythmia/Palpitations Stated complaint: Afib and rapid heart Time Seen by Provider: 08/15/24 12:42 History of Present Illness HPI narrative: He 79-year-old male with a history of paroxysmal AFib ( visits to the ER on 07/24 and 07/27/2024). Follows with [facility]. On amiodarone for rhythm control. Apparently he started his amiodarone a few weeks ago after use here in the ER with recurrent AFib. He had increased the dose up to 800 mg per day on the direction with his furnace room supervisor and then decreased back down for him mg today with a long-term plan to decrease down to 200 mg per day beginning tomorrow. Previous Watchman procedure for stroke prophylaxis. Therefore Not on anticoagulation. Also has a history of aortic stenosis and ascending thoracic her aortic aneurysm. Noted on CT scans your to ago. Was closed requiring surgery but thoracic surgery recommended 1 year of observation with repeat imaging this year. He was cardioverted on 07/24 developed an 07/27. The notes indicate 120 joules was successful. Received etomidate 10 mg IV for sedation. He says that he does have a history is or paroxysmal AFib and has a Watchman in place. He has had multiple previous cardioversions and ablations. He had AFib twice last month and right was cardioverted here in the ER. After those cardioversions he was started on amiodarone and had a follow-up appointment in clinic with his furnace room supervisor, Dr. Jose Andres. Plan was to start him on amiodarone and he has been decreasing the dose from 800 mg down to 400 mg, with a plan to decrease further down to Twin mg tomorrow Last night he was feeling irregular and a little bit of a tight anxious feeling in his abdomen. His cardiac monitors at home told him that he went into AFib and then apparently told him he went into an accelerated rhythm. He called his doctors [place] apparently was told to come to the ER for potential cardioversion. He is not having any chest pain. No shortness of breath. No nausea. No fainting. No swelling in his legs. No trouble breathing. He just feels a little bit often irregular. He slept poorly last night because he could feel his heart beating too fast. He knows that he supposed to decrease his dose of amiodarone further tomorrow. He is not anticoagulated but has the Watchman device in place. Related Data Home Medications ?Medication ?Instructions ?Recorded ?Confirmed amlodipine 5 mg tablet 5 mg PO DAILY 07/10/22 08/12/24 eszopiclone 1 mg tablet 1 mg PO HS 07/10/22 08/12/24 evolocumab 140 mg/mL subcutaneous 140 mg subcut Q14D 07/10/22 08/12/24 pen injector (Jarod Moranick) testosterone enanthate 75 mg/0.5 75 mg subcut Q7D 07/10/22 08/12/24 mL subcutaneous auto-injector (Xyosted) aspirin 81 mg capsule 81 mg PO DAILY 10/12/22 08/12/24 celecoxib 100 mg capsule 100 mg PO BID PRN 07/17/23 08/12/24 omeprazole 40 mg capsule,delayed 40 mg PO DAILY 07/21/23 08/12/24 release betamethasone, augmented 0.05 % topical 07/27/24 08/12/24 topical ointment clobetasol 0.05 % topical cream topical 07/27/24 08/12/24 tacrolimus 0.1 % topical ointment 1 - 2 topical DAILY 07/27/24 08/12/24 Previous Rx's ?Medication ?Instructions ?Recorded amiodarone 200 mg tablet 200 mg PO DAILY #30 tabs 07/24/24 Allergies Allergy/AdvReac Type Severity Reaction Status Date / Time latex Allergy Unknown Verified 08/12/24 13:23 atorvastatin Allergy Verified 08/12/24 13:23 lisinopril Allergy Verified 08/12/24 13:23 naproxen Allergy Nausea Verified 08/12/24 13:23 rosuvastatin Allergy Verified 08/12/24 13:23 [facility] Medical History Health care directive on file ?Z78.9 - Other specified health status (ICD-10) Sarcoidosis ?D86.9 - Sarcoidosis, unspecified (ICD-10) Atrial fibrillation ?I48.91 - Unspecified atrial fibrillation (ICD-10) Chronic systolic CHF (congestive heart failure) ?I50.22 - Chronic systolic (congestive) heart failure (ICD-10) Prostate cancer ?C61 - Malignant neoplasm of prostate (ICD-10) Hypertension ?I10 - Essential (primary) hypertension (ICD-10) Pain of foot ?M79.673 - Pain in unspecified foot (ICD-10) Malaise ?R53.81 - Other malaise (ICD-10) Laceration of left side of forehead with complication ?S01.81XA - Laceration without foreign body of other part of head, initial encounter (ICD-10) Facial injury ?S09.93XA - Unspecified injury of face, initial encounter (ICD-10) 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) Chronic headache ?R51.9 - Headache, unspecified (ICD-10) ?G89.29 - Other chronic pain (ICD-10) Chronic daily headache ?R51.9 - Headache, unspecified (ICD-10) Atrial flutter with rapid ventricular response ?I48.92 - Unspecified atrial flutter (ICD-10) Atrial fibrillation with rapid ventricular response ?I48.91 - Unspecified atrial fibrillation (ICD-10) Methicillin resistant Staphylococcus aureus culture positive (03/31/19) ?Z22.322 - Carrier or suspected carrier of Methicillin resistant Staphylococcus aureus (ICD-10) Diverticulitis ?K57.92 - Diverticulitis of intestine, part unspecified, without perforation or abscess without bleeding (ICD-10) Surgical History Status post tendon repair (07/21/23) ?Z98.890 - Other specified postprocedural states (ICD-10) H/O prostatectomy (10/2014) ?Z90.79 - Acquired absence of other genital organ(s) (ICD-10) History of elbow surgery (01/19/04) ?Z98.890 - Other specified postprocedural states (ICD-10) Status post arthroscopy of left shoulder (03/02/03) ?Z98.890 - Other specified postprocedural states (ICD-10) S/P ankle joint replacement ?Z96.669 - Presence of unspecified artificial ankle joint (ICD-10) H/O elbow surgery (~09/2017) ?Z98.890 - Other specified postprocedural states (ICD-10) Social History Narrative: -Kristen What is your current living situation?: I presently have a place to live In the past 12 months, utilities in danger of being shut off: no In past 12 months, lack of transportation kept you from medical appts, meetings, work, or getting things needed for daily living: no In the past 12 mos, have been you worried that your food would run out before you had money to buy more?: never true In the past 12 mos, the food you bought just didn't last and you didn't have money to buy more?: never true Smoking Status: Never smoker Do you use any of these nicotine containing products: None Second hand tobacco smoke exposure: No How often do you have a drink containing alcohol: never AUDIT-C Alcohol total score: 0 Non-prescribed substance use: denies use Caffeine: Yes How often does anyone, including family, friends and others, physically hurt you: never How often does anyone, including family, friends and others, insult or talk down to you: never How often does anyone, including family, friends and others, threaten you with harm: never How often does anyone, including family, friends and others, scream or curse at you: never service: No Exam Narrative: Exam Narrative: Constitutional: Appears well-developed and well-nourished. Alert. Conversant. Non toxic. HENT: Head: Atraumatic. Nose: Nose normal. Mouth/Throat: Oral mucosa is clear and moist. no trismus. Pharynx normal. Tonsils symmetric. No tonsillar enlargement, erythema, or exudate. Eyes: Conjunctivae normal. EOM normal. Pupils equal, round, and reactive to light. No scleral icterus. Neck: Normal range of motion. Neck supple. No tracheal deviation present. No JVD Cardiovascular: Tachycardic, regular rhythm. Rate 28 and regular on the monitor. No gallop. No friction rub. System murmur heard. Symmetric radial artery pulses Pulmonary/Chest: Effort normal. No stridor. No respiratory distress. No wheezes. No rales. No rhonchi . No tenderness. Abdominal: Soft. Bowel sounds normal. No distension. No mass. No tenderness. No rebound. No guarding. Musculoskeletal: RUE: Normal range of motion. No tenderness. No deformity LUE: Normal range of motion. No tenderness. No deformity RLE: Normal range of motion. No edema. No tenderness. No deformity LLE: Normal range of motion. No edema. No tenderness. No deformity Neurological: Alert and oriented to person, place, and time. Normal strength. CN II-VII intact. No sensory deficit. GCS eye subscore is 4. GCS verbal subscore is 5. GCS motor subscore is 6. Normal coordination Skin: Skin is warm and dry. No rash noted. No pallor. Normal capillary refill. Psychiatric: Normal mood. Normal affect. Const: Vital Signs, click to edit/add: Vital Signs - 24 hr 08/15/24 12:45 08/15/24 13:05 08/15/24 13:06 Temperature 97.5 F L Pulse Rate 128 H 128 H Pulse Rate [Right Pulse Oximeter] 126 H Respiratory Rate 18 9 L 12 Blood Pressure 172/125 H Blood Pressure [Ri ght Upper Arm] 141/105 H Pulse Oximetry 99 98 [facility] 08/15/24 13:15 08/15/24 13:27 08/15/24 13:30 Temperature Pulse Rate 128 H 126 H 125 H Pulse Rate [Right Pulse Oximeter] Respiratory Rate 64 H 0 L 10 L Blood Pressure 120/106 H Blood Pressure [Ri ght Upper Arm] Pulse Oximetry 98 97 96 Oxygen Delivery [facility] 08/15/24 13:42 08/15/24 13:45 08/15/24 14:00 Temperature Pulse Rate 128 H 126 H 128 H Pulse Rate [Right Pulse Oximeter] Respiratory Rate 11 L 17 Blood Pressure 117/95 H Blood Pressure [Ri ght Upper Arm] Pulse Oximetry 94 95 [facility] 08/15/24 14:02 08/15/24 14:03 08/15/24 14:12 Temperature Pulse Rate 127 H 117 H 128 H Pulse Rate [Right Pulse Oximeter] Respiratory Rate 16 5 L Blood Pressure 130/119 H 119/97 H Blood Pressure [Ri ght Upper Arm] Pulse Oximetry 96 97 97 [facility] 08/15/24 14:15 08/15/24 14:22 08/15/24 14:30 Temperature Pulse Rate 128 H 125 H 117 H Pulse Rate [Right Pulse Oximeter] Respiratory Rate 6 L 14 12 Blood Pressure 114/93 H 124/84 Blood Pressure [Ri ght Upper Arm] Pulse Oximetry 96 93 97 Oxygen Delivery Me thod 08/15/24 14:31 08/15/24 14:32 08/15/24 14:37 Temperature Pulse Rate 115 H 79 70 Pulse Rate [Right Pulse Oximeter] Respiratory Rate 13 16 18 Blood Pressure 134/103 H 115/79 Blood Pressure [Ri ght Upper Arm] Pulse Oximetry 99 99 97 Oxygen Delivery Me thod 08/15/24 14:38 08/15/24 14:45 Temperature Pulse Rate 69 69 Pulse Rate [Right Pulse Oximeter] Respiratory Rate 17 16 Blood Pressure Blood Pressure [Ri ght Upper Arm] Pulse Oximetry 97 97 Oxygen Delivery Me thod Course Course ED Course: ER course. Discussed with [facility], Dr. Ugalde. He would agree with plans to go ahead with electric cardioversion here in the ER. This would be successful if the patient's rhythm is AFib, a flutter core mom a or possibly atrial tachycardia patient. Update-patient's rhythm is changed. He now has an irregularly irregular tachycardia on the monitor consistent with atrial fibrillation. Procedure: Electrical cardioversion See separate note for procedural sit Indication for cardioversion is atrial fibrillation with RV Pads placed anterior posterior Single shock ,synchronized, 120 joules was successful in converting AFib with RVR to sinus rhythm with a rate of 70. Vital Signs Vital signs: Initial Vital Signs Temperature 97.5 F L 08/15/24 12:45 Temperature Source Temporal Artery Scan 08/15/24 12:45 Pulse Rate 126 H 08/15/24 12:45 Respiratory Rate 18 08/15/24 12:45 Blood Pressure 141/105 H 08/15/24 12:45 Blood Pressure Mean 117 H 08/15/24 12:45 Blood Pressure Position Sitting 08/15/24 12:45 Pulse Oximetry 99 08/15/24 12:45 Oxygen Delivery Method Room Air 08/15/24 12:45 Vital Signs Temperature 97.5 F L 08/15/24 12:45 Pulse Rate 126 H 08/15/24 12:45 Respiratory Rate 18 08/15/24 12:45 Blood Pressure 141/105 H 08/15/24 12:45 Pulse Oximetry 99 08/15/24 12:45 Oxygen Delivery Method Room Air 08/15/24 12:45 Temperature 97.5 F L 02/09/25 12:45 Pulse Rate 69 08/15/24 14:45 Respiratory Rate 16 08/15/24 14:45 Blood Pressure 115/79 08/15/24 14:37 Pulse Oximetry 97 08/15/24 14:45 Oxygen Delivery Method Room Air 08/15/24 12:45 Medications Administered Medications: Discontinued Medications Generic Name Dose Route Start Last Admin Trade Name Kyle PRN Reason Stop Dose Admin Propofol 200 mg 08/15/24 13:55 08/15/24 14:29 Propofol 10 Mg/Ml Inj IVP 08/15/24 13:56 60 mg ONCE ONE Administration Medical Decision Making MDM Narrative Medical decision making narrative: This patent presents for evaluation of palpitations, which began yesterday evening. Initial EKG showed a regular narrow complex tachycardia with a consistent rate of 127-128. My initial differential would include atrial flutter with 2-1, atrial tachycardia. Computer interpretation of the EKG suggested an accelerated junctional rhythm. Subsequently while the patient was here in the ER he his rhythm changed and he definitely developed atrial fib with an irregular rate, still RVR. He is not on anticoagulation but has had a Watchman device. He has had recent cardioversion for his AFib. He is also on amiodarone for rhythm control. After consultation with Cardiology we went ahead with cardioversion here in the ER. electrical cardioversion was successful in converting rhythm back to normal sinus. I doubt acute coronary syndrome, thyroid issues, PE, dissection, drug ingestion, acute electrolyte imbalance, etc. Labs and CXR look ok. Repeat EKG looks excellent. Asymptomatic after cardioversion now and would not hospitalize. Discussed with patient and the patient is in agreement. He will continue amiodaroneon to help keep them in normal sinus. In discussion with Cardiology, their plan will be to have the patient call them tomorrow to move up his outpatient appointment. It sounds like it is still unclear whether not they are going to changes anti rhythmic, pursue another ablation, or pursue other options for managing his AFib Sedation precautions reviewed. Precautions for return to the ER reviewed. Lab Data Labs: Lab Results 08/15/24 08/15/24 Range/Units 13:00 13:11 WBC 5.70 (4.50-11.00) K/uL RBC 5.33 (4.30-5.90) m/uL Hgb 16.5 (13.5-17.5) gm/dL Hct 50.1 (37.0-53.0) % MCV 94 (80-100) fL MCH 31 (26-34) pg MCHC 33 (32-36) gm/dL RDW Coeff of Gin 13.5 (11.5-15.5) % Plt Count 198 (140-440) K/uL Neut % (Auto) 63.5 (42.0-72.0) % Lymph % (Auto) 14.7 L (20-44) % Sampson % (Auto) 13.9 H (0.0-11.0) % Eos % (Auto) 6.8 (0.0-7.0) % Baso % (Auto) 0.7 (0.0-3.0) % Neut # (Auto) 3.62 (1.7-7.0) K/uL Lymph # (Auto) 0.80 L (0.90-2.90) K/uL Sampson # (Auto) 0.80 (0.00-0.90) K/UL Eos # (Auto) 0.39 (0.00-0.50) K/uL Baso # (Auto) 0.04 (0.00-0.30) K/uL Abs Immat Gran (auto) 0.02 (0.00-0.30) K/uL Imm/Tot Granulo (auto) 0.4 % Sodium 138 (135-149) mmol/L Potassium 4.1 (3.6-5.1) mmol/L Chloride 103 (96-114) mmol/L Carbon Dioxide 26 (20-32) mmol/L Anion Gap 9 (7-15) mEq/L BUN 20 (7-30) mg/dL Creatinine 1.0 (0.5-1.5) mg/dL Estimated Creat Clear 67.90 Estimated GFR 78 ml/min Glucose 98 (60-115) mg/dL Calcium 9.3 (8.4-10.6) mg/dL POC Troponin I 0.01 (0.01-0.04) ng/ml ECG Data Attestation: I personally reviewed and interpreted this ECG as follows: Interpretation: Narrow complex regular tachycardia. Computer interpretation is ?accelerated junctional rhythm with retrograde conduction?. By my view I wonder if there may be and irregularity in the baseline near the end of the QRS that could be a flutter wave which might suggest a flutter with 2:1 conduction. Rate: 127 MI: Undetermined QRS axis: Normal axis. No pathologic Q-waves ST segment/T wave: No ST segment elevation or depression. QTc: 520 Compared to EKG from 07/27/2024, previous atrial fibrillation has now been replaced by the current rhythm. No new ST segment changes. Discharge Plan Discharge Clinical Impression: Atrial fibrillation with rapid ventricular response Patient Disposition: Home, Self-Care Condition: Stable Instructions: A-fib (Atrial Fibrillation) (ED) Additional Instructions: As we discussed, please come back to the ER right away if you have more episodes of palpitations or chest tightness or trouble breathing, or if your heart rate more than 125 that last more than 30 minutes. Please continue on your medications for now Call your furnace room supervisor tomorrow to arrange an ER follow-up appointment Prescriptions: No Action Repatha SureClick 140 mg/mL pen injector 140 mg subcut Q14D eszopiclone 1 mg tablet 1 mg PO HS Xyosted 75 mg/0.5 mL auto-injector 75 mg subcut Q7D Patient Comments: INJECT 0.5 ML SUBCUTANEOUS ONCE WEEKLY amlodipine 5 mg tablet 5 mg PO DAILY aspirin 81 mg capsule 81 mg PO DAILY celecoxib 100 mg capsule 100 mg PO BID PRN omeprazole 40 mg capsule,delayed release(DR/EC) 40 mg PO DAILY amiodarone 200 mg tablet 200 mg PO DAILY Qty: 30 0RF clobetasol 0.05 % cream topical tacrolimus 0.1 % ointment 1 - 2 topical DAILY betamethasone, augmented 0.05 % ointment topical Follow Up/Referrals: Adrien Hernandez MD [Primary Care Provider] - Stand Alone Forms: [employer] Info Instructions Procedures Procedural Sedation Pre procedure diagnosis: Atrial fibrillation with rapid ventricular response Written consent by: patient Verification/time out: correct patient, correct procedure and time out performed Name of person perfmorming the procedure: Adan Almaraz Indication: other ASA Class: II Time of Last PO Intake: 08:00 Preparation: campus monitor applied, pulse oximeter, capnometry used, supplemental O2 applied, reversal agents at bedside, suction/airway equipment at bedside and IV secured IV Propofol dose (mg): 60 Complications: none Additional Comments: Tolerated sedation well. No complications
--- OUTSIDE RECORDS SUMMARY | 2024-08-15 12:44 | XMS_ITS | Clinical Summary ---
Author Organization [facility] Address [place], [place] [address] Care Team Providers Care Parker Name Role Phone Adrien Hernandez MD Primary Care Provider [phone] Allergies Active Allergy Reactions Criticality Noted Date [...] both eyes. Active eszopiclone (Lunesta) 1 mg tabletIndications :Insomnia, idiopathic Take 1 Tablet (1 mg) by mouth at bedtime. 09/18/19 22 Active Xyosted 75 mg/0.5 mL atInIndications:L ow testosterone INJECT 75MG SUBCUTANEOUS WEEKLY 12 mL 03/07/20 22 Active aspirin (ECOTRIN) 81 mg enteric coated tabletIndications :Presence of Watchman left atrial appendage closure device Take 1 Tablet (81 mg) by mouth once daily with a meal. 0 09/13/19 23 Active ketoconazole 2% shampoo (NIZORAL) 2 % shampoo Not taking Active evolocumab (Repatha SureClick) 140 mg/mL subcutaneous pen injectorIndicatio ns:Hyperlipidemia , unspecified hyperlipidemia type Inject 1 mL (140 mg) subcutaneous every 2 weeks. Inject into abdomen, thigh, or upper arms; rotate injection sites 6 mL 2 04/06/20 24 Active amLODIPine (NORVASC) 5 mg tabletIndications :HTN (hypertension),Ch ronic atrial fibrillation (HC) Take 1 Tablet (5 mg) by mouth once daily. 90 Tablet 3 06/15/20 24 Active celecoxib (CELEBREX) 100 mg capsuleIndication s:Polyarthralgia Take 1 Capsule (100 mg) by mouth once daily with a meal. 90 Capsule 3 06/15/20 24 Active omeprazole (PRILOSEC) 40 mg Delayed-Release capsuleIndication s:Gastric reflux Take 1 Capsule (40 mg) by mouth once daily before a meal. 90 Capsule 3 06/15/20 24 Active clobetasol (TEMOVATE) 0.05 % cream APPLY TWICE DAILY TO AFFECTED AREAS ON BODY FOR 2 WEEKS, TAKE 2 WEEKS OFF. REPEAT NEEDED. 05/10/20 Active amiodarone (CORDARONE) 200 mg tabletIndications :Paroxysmal atrial fibrillation (HC) DECREASE to 200mg by mouth twice a day x 2 weeks. On 08/20/24, DECREASE to 200 mg daily 42 Tablet 2 08/05/19 Active sotaloL (BETAPACE) 80 mg tabletIndications :Paroxysmal atrial fibrillation (HC) Take 0.5 Tablets (40 mg) by mouth every 12 hours. 90 Tablet 3 03/25/20 24 025 Discontin ued(*Maddie ent states no longer taking) amiodarone (CORDARONE) 200 mg tabletIndications :Paroxysmal atrial fibrillation (HC) Take 1 Tablet (200 mg) by mouth once daily. 90 Tablet 07/28/19 25 025 Discontin ued(Reord er (E-cancel not sent)) amiodarone (CORDARONE) 200 mg tabletIndications :Paroxysmal atrial fibrillation (HC) Take 1 Tablet (200 mg) by mouth once daily. 28 Tablet 08/02/19 25 025 Discontin ued(Reord er (E-cancel not sent)) amiodarone (CORDARONE) 200 mg tabletIndications :Paroxysmal atrial fibrillation (HC) Take 400 mg (2 tablets) twice daily by mouth. On 08/07/24 DECREASE to 400 mg (2 tablets) by mouth daily. Then on 08/14/24 DECREASE to 200 mg daily by mouth. 77 Tablet 08/03/19 25 025 Discontin ued(*Medi cation adjustmen t) Active Problems Patient Care Coordination No te Formatting of this note migh t be different from the original. HF/Structural/Prevention Research Eligibility Review Date: 06/22/19 Upcoming Visit Location: [facility] Age: 74 y.o. Insurance: Medicare EF: 74 LVID: Valve/Imaging: Mild MR, trace TR, mild /no AR Cardiac Devices: Comments: HF: DNQ Structural: [place]: No d/t mild MR Prevention: DNQ Problem [...] spectacles was dispensed Pseudophakia, left eye 05/29/2022 Overview (10/21/2022): Last Assessment & Plan: - [...] lung 07/29/2017 Overview (07/29/2017): Recently diagnosed at [facility] Paroxysmal atrial fibrillation 04/10/2017 Thoracic aortic aneurysm [...] Encounters Date Type Department Care Team Description 08/14/2024 Nurse Triage [facility] [address] [place] [phone] Yadira Coe RN Atrial Fibrillation 08/12/2024 Telephone [facility] [address] [place] [phone] Gabriel Antony, ISELA Follow Up 08/11/2024 Telephone [facility] [address] [place] [phone] Cardiothoracic, [place] Appointment 08/11/2024 Telephone [facility] [address] [place] [phone] Koby Navarro MD Appointment; Questions 08/05/2024 4:00 PM ADULT LITERACY TEACHER Office Visit [facility] [address] [place] [address] Ti Goodman MD CV General Cardiology Est (2 recent cardioversion, not feeling well on amiodarone. ) 08/05/2024 Travel 08/04/2024 Telephone [facility] [address] [place] [phone] Ti Goodman MD Care Coordination 07/30/2024 Nurse Triage [facility] [address] [place] [address] Ti Goodman MD Atrial Fibrillation 07/27/2024 Orders Only [facility] [place] [facility] Scanner 1 scan: (1-Ord) [facility], CHEST 2V, 07/27/2024 07/27/2024 Telephone [facility] [address] [place] [address] Ti Goodman MD Concerns 06/28/2024 Telephone [facility] [address] [place] [address] Donny Kirkpatrick MD Questions (Regarding increased pain since ZAHIDA on 06/22/24) 06/22/2024 8:00 AM ADULT LITERACY TEACHER Office Visit [facility] [address] [place] [address] Donny Kirkpatrick MD Procedure (Left L4-5 TFESI) 06/15/2024 1:35 PM ADULT LITERACY TEACHER Office Visit [facility] [address] [place] [address] Adrien Hernandez MD Medicare ANNUAL (subsequent) Visit (79 yr old male) 06/15/2024 Travel 06/11/2024 2:00 PM ADULT LITERACY TEACHER Office Visit [facility] [address] [place] [address] Leslie Perry, Pneumonia (Was prescribed azithromycin on 06/08, feels he is not getting any better) 06/10/2024 4:30 PM ADULT LITERACY TEACHER Phone Office Visit [facility] [address] [facility] [address] [place] [address] Geraldo Rhodes MD 06/10/2024 Travel 06/09/2024 Travel 06/08/2024 2:45 PM ADULT LITERACY TEACHER Office Visit [facility] [address] [place] [address] Sotero Mahmood MD Cough (> 1 week of coughing/congestion ) 06/08/2024 Travel 05/31/2024 Orders Only [facility] [address] [place] [address] Mariola Frankel PA Imaging 05/31/2024 Telephone [facility] [address] [place] [address] Geraldo Rhodes MD Aortic Aneurysm 05/27/2024 Transcribe Orders [facility] [address] [place] [address] Donny Kirkpatrick MD 05/26/2024 Refill [facility] [address] [place] [address] Adrien Hernandez MD Refill Request (Celecoxib) 05/24/2024 2:40 PM ADULT LITERACY TEACHER Office Visit [facility] [address] [facility] [address] Tiarra Erazo MD Ear Problem (Ringing in the ear for 10 days. Impacted ears. ) 05/24/2024 Travel 05/21/2024 Orders Only [facility] [place] [facility] Scanner 1 scan: (1-Ord) QUIN, LUMBAR SPINE WO CONTRAST, 05/21/2024 05/20/2024 Telephone [facility] [address] [place] [address] Koby Navarro MD Questions (Results) 05/18/2024 Refill [facility] [address] [place] [address] Adrien Hernandez MD Refill Request (Amlodipine) 05/17/2024 Refill [facility] [address] [facility] [place] [address] Adrien Hernandez MD Refill Request (Celecoxib) from Last 3 Months Immunizations Name Administration [...] is your housing situation today? 1 06/10/2024 Utilities Answer Date Recorded Do you have trouble paying f or utilities (for example, heat, electricity, water, phone)? 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 Not on file Not on file Not on file Obstetrics History Last Filed Vital Signs Vital Sign Reading Time Taken Comments Blood Pressure 134/78 08/05/2024 4:06 PM ADULT LITERACY TEACHER Pulse 72 08/05/2024 4:06 PM ADULT LITERACY TEACHER Temperature 36.2 C (97.2 F) 06/08/2024 2:50 PM ADULT LITERACY TEACHER Respiratory Rate 18 10/30/2023 4:31 PM CDT Oxygen Saturation 97% 08/05/2024 4:06 PM ADULT LITERACY TEACHER Inhaled Oxygen Concentration - - Weight 96.2 kg (212 lb) 08/05/2024 4:06 PM ADULT LITERACY TEACHER Height 182.9 cm (6') 08/05/2024 4:06 PM ADULT LITERACY TEACHER Body Mass Index 28.75 08/05/2024 4:06 PM ADULT LITERACY TEACHER Plan of Treatment Upcoming Encounters Date Type Department Care Team (Late st Contact Info) Description 09/16/2024 9:00 AM CDT Office Visit [facility] [address] [facility] [address] [address] [place] [address] Ti Goodman MD [address] [facility] [address] [place] [address] Health Maintenance Due Date Last Done Comments RSV vaccine for adults or (1 - 1-dose 75+ series) 2022 COVID-19 vaccine series ( season) 2024 05/16/2022, 12/07/2021, 05/07/2021, Additional history exists Depression screening for age 12+ 06/15/2025 06/15/2024, 04/18/2023, 2023, Additional history exists Medicare Wellness for age 65+ 06/16/2025, 04/14/2023, 07/16/2021, Additional history exists BMI (ht and wt on same day) for age 18+ 08/05/2025 08/05/2024, 06/15/2024, 05/14/2024, Additional history exists Tetanus booster 01/15/2030 01/16/2020, 02/04, 10/31/2006, Additional history exists Hepatitis C screening for ag e 18-79 Completed 05/02/2015 Pneumococcal series for age 50+ Completed 06/26/2015, 06/26/2015, 06/11/2012 Zoster (shingles) series for age 50+ Completed 08/03/2019, 05/24/2019, 08/02/2008 Tdap Completed 01/16/2020, 02/04, 10/31/2006 Influenza for age 65+ Completed 06/15/2024 , 04/14/2023, 05/16/2022, Additional history exists Medical Devices Implanted Type Area Bulldozer Operator Device Identifier Shelf Expiration Date Model / Serial / Lot Amnio Fix 2.0x12.0cm Implanted:Qty: 1 on 10/25/2014 at [facility] [id number] / / [id number] Description:AMNIO FIX 2.0X12 .0CM Procedures Procedure Name Priority Date/Time Associated Diagnosis Comments EKG 12 LEAD Routine 08/05/2024 4:02 PM ADULT LITERACY TEACHER Paroxysmal atrial fibrillation (HC) SCAN-RADIOLOGY REPORT 07/27/2024 12:00 AM ADULT LITERACY TEACHER AMB EPIDURAL STEROID INJECTION Routine 06/22/2024 12:00 AM ADULT LITERACY TEACHER Lumbar radiculopathy CBC WITH AUTO DIFFERENTIAL Routine 06/08/2024 3:35 PM ADULT LITERACY TEACHER Walking pneumonia SCAN-MRI INTERPRETATION 05/21/2024 12:00 AM ADULT LITERACY TEACHER ANTI HCV Routine 05/02/2015 7:09 AM CDT Need for hepatitis C screening test from Last 3 Months or Most Recently Relevant to Health Maintenance Results * EKG 12 LEAD (08/05/2024 4:02 PM ADULT LITERACY TEACHER) Interpretation Normal sinus rhythm Normal ECG When compared with ECG of 25-Mar-2024 15:41, MANUAL COMPARISON REQUIRED DATA IS UNCONFIRMED Ventricular Rate 72 BPM Atrial Rate 72 BPM P-R Interval 194 ms QRS Duration 94 ms QT 418 ms QTc 457 ms P [place] 60 degrees R [place] 39 degrees T [place] 8 degrees 08/05/2024 4:02 PM ADULT LITERACY TEACHER 08/05/2024 5:11 PM ADULT LITERACY TEACHER us Ti Goodman MD EKG ORD Final Resul t * SCAN-RADIOLOGY REPORT (07/27/2024 12:00 AM ADULT LITERACY TEACHER) Anatomical Region Laterality Modality Other us Scanner OTHER Final Result * AMB EPIDURAL STEROID INJECTION (06/22/2024 12:00 AM ADULT LITERACY TEACHER) us Donny Kirkpatrick MD NEUROLOGY ORD Final Resu lt * CBC AND DIFFERENTIAL (06/08/2024 3:35 PM ADULT LITERACY TEACHER) WHITE BLOOD CELL COUNT 5.2 3.8 - [...] - 400 Thousand/u L [facility] MPV 10.9 7.5 - 12.5 fL [facility] [...] [facility] BASOPHILS 0.8 % [facility] Blood BLOOD SPECIMEN / Unknown 06/08/2024 3:35 PM ADULT LITERACY TEACHER 06/08/2024 3:36 PM ADULT LITERACY TEACHER Sotero Mahmood MD HEMATOLOGY Final Resu lt [facility] [facility] [address] [place] [address], [employer] [address] * SCAN-MRI INTERPRETATION (05/21/2024 12:00 AM ADULT LITERACY TEACHER) Anatomical Region Laterality Modality Other us Scanner OTHER Final Result * ANTI HCV [49563.2] (05/02/2015 7:09 AM CDT) HEPATITIS C ANTIBODY Non-Reacti ve Non-Reacti ve 05/02/2015 2:42 PM CDT [facility] Blood specimen (specimen) BLOOD SPECIMEN / Unknown Venipuncture / Unknown 05/02/2015 7:09 AM CDT 05/02/2015 7:09 AM CDT Narrative [facility] - 05/02/2015 2:42 PM CDT Antibodies to HCV not detected; does not exclude the possibility of exposure to HCV. us Maikol Cortes MD SEND OUTS Final Result [facility] 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
--- OUTSIDE RECORDS SUMMARY | 2024-08-15 12:44 | XMS_ITS | Data Portability ---
Author Organization [facility], [facility] Address [address] [place] [address] Care Team Providers Care Oracle Iam Consultant Name Role Phone KJ RODAS Primary Care Provider Assessment No assessment recorded. Plan of Treatment Reminders Order Date Submit Date Provider Last Modified By Organization Details Last Modified Time Details Appointments ESTABLISH ED PHONE VISIT 20 2024 02:30P Angel Batista MD Not available Not available Not available Lab PSA, total, serum or plasma 2021 022 [email or web address] 0 [facility], [address] [place], [address], 04/17/2022 08:48:27 testoster one, total, serum 2021 022 [email or web address] 0 [facility], [address] [place], [address], 04/17/2022 08:48:27 PSA, total, serum or plasma 2022 023 [email or web address] 0 [facility], [address] [place], [address], 10/15/2022 08:45:23 testoster one, total, serum 2022 023 0 [facility], [address] [place], [address], 10/15/2022 08:45:23 hemoglobi n (Hb), blood 2022 023 [email or web address] 0 [facility], [address], [place], [address], 10/15/2022 08:45:23 testoster one, total, serum 2022 023 [email or web address] [facility], [address] [place], [address], 04/30/2023 12:29:25 PSA, total, serum or plasma 2023 024 [email or web address] 0 [facility], [address], [place], [address], 10/30/2023 15:14:47 testoster one, total, serum 2023 024 [email or web address] 0 [facility], [address], [place], [address], 10/30/2023 15:14:46 hemoglobi n (Hb), blood 2023 024 [email or web address] 0 [facility], [address] [place], [address], 10/30/2023 15:14:46 Referral None recorded. Procedures None recorded. Surgeries None recorded. Imaging None recorded. Medication Orders Xyosted 75 mg/0.5 mL subcutane ous auto-inje ctor 2021 022 [email or web address] [id number], [address] [place], [place], [phone], 04/09/2022 00:08:40 Xyosted 75 mg/0.5 mL subcutane ous auto-inje ctor 2022 023 [email or web address] [facility] #92539, [address] [place], [place], [phone], 10/07/2022 11:50:48 Xyosted 75 mg/0.5 mL subcutane ous auto-inje ctor 2022 023 DILSHAD [id number], [address] [place], [place], [phone], 04/07/2023 10:27:30 Xyosted 75 mg/0.5 mL subcutane ous auto-inje ctor 2023 024 DILSHAD [facility] #[id number], [address] [place], [place], [phone], 10/06/2023 10:53:47 Patient TargetsNo targets recorded. Patient Instructions Encounter Date Encounter Id Patient Instructions Last Modified By Organization Details Last Modified Time 04/08/2022 [id number] Telephone - 10 minutes Not available 04/08/2022 11:04:02 10/07/2022 [id number] Telephone - 6 minutes Not available 10/07/2022 11:46:16 04/07/2023 [id number] Telephone - 7 minutes Not available 04/07/2023 10:27:29 10/06/2023 [id number] Telephone - 6 minutes Not available 10/06/2023 10:53:46 Reason for Referral None Reported. Results Created Date Observation Date Name Description Value Unit Range Abnormal Flag Note LastModifiedBy Organization Detail LastModifiedTime Result Notes None recorded. 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 Procedures Surgical History Date Name Laterality Status Provider Name and Address Organization Details Recorded Time 09/20/19 21 implantation of penile prosthesis completed Zaheer Grider [facility] 04/08/2022 10:07:35 09/20/19 21 insertion of single incision mid-urethral mini-sling completed Zaheer Grider [facility] 04/08/2022 10:08:14 10/26/19 15 prostatectomy completed Zaheer Grider [facility] 04/08/2022 10:06:57 Imaging Results None recorded. Procedure Notes None recorded. Medical Equipment None Reported. Allergies Allergen ID Allergen Name Allergen Category Reaction Reaction Severity Criticality Documentation Date Start Date Code Code System Note Provider Name and Address Organization Details Recorded Time 482452 naproxen medicatio n Not available Not available Not available 12/23/20192014 7258 RxNorm Not Available Not Available Not Available 884511 Product containin g 3-hydroxy -3-methyl glutaryl- coenzyme A reductase inhibitor (product) medicatio n myalgias (muscle pain) Not available Not available 04/08/2022 13894 009 SNOMED Not Available Not Available Not [...] Updated DateTime 04/08/2022 182.88 cm 27.4 kg/m2 45517.66 g Zaheer Grider [facility] 04/08/2022 10:26:15 Date Recorded Body height Body mass index (BMI) Body weight Provider Name and Address Organization Details Last Updated DateTime 10/07/2022 182.88 cm 27.9 kg/m2 08857.03 g Rajni Hoang [facility] 10/07/2022 10:57:49 Date Recorded Body height Body mass index (BMI) Body weight Provider Name and Address Organization Details Last Updated DateTime 04/07/2023 182.88 cm 27.9 kg/m2 27057.03 g Rajni Hoang [facility] 04/07/2023 10:02:38 Date Recorded Body height Body mass index (BMI) Body weight Provider Name and Address Organization Details Last Updated DateTime 10/06/2023 182.88 cm 27.1 kg/m2 87312.47 g Brendon Diaz MA [facility] 10/06/2023 10:12:15 Social History Question Answer Notes LastModified by Organizat ion Details LastModified Time Tobacco Smoking Status Never [facility]oker [facility] 04/08/2022 10:05:49 What Was The Date Of Your Most Recent Tobacco Screening? 10/06/2023 [email or web address] Information not available 10/06/2023 Sex: Unknown Functional Status None recorded. Mental Status None recorded. Family History Nothing Reported. Medical History Condition Response Diabetes Y Other Bleeding Disorder High Blood Pressure Y Heart Disease Y Cancer Lung Disease Y Depression Y Immunizations Vaccine Type Date Status Note Provider Nam e and Address Organization Details Recorded Time Influenza, adjuvanted, quadrivalent, PF 2 completed Brendon laird [facility] 10/06/2023 10:12:19 COVID-19, mRNA, LNP-S, bivalent, PF, 30 mcg/0.3 mL dose 2 [facility] 10:12:19 Influenza, adjuvanted, trivalent, PF 9 [facility] 04/07/2023 10:02:45 Influenza, adjuvanted, trivalent, PF 7 completed Rajni laird [facility] 04/07/2023 10:02:45 Influenza, adjuvanted, trivalent, PF 8 completed Rajni laird [facility] 04/07/2023 10:02:45 zoster recombinant 0 completed Rajni laird [facility] 04/07/2023 10:02:45 zoster recombinant 9 completed Rajni laird [facility] 04/07/2023 10:02:45 Influenza, adjuvanted, quadrivalent, PF 0 [facility] 04/07[facility]2023 10:02:45 Influenza, adjuvanted, quadrivalent, PF 1 completed Rajni Juareza null, [facility] 04/07/2023 10:02:45 COVID-19, mRNA, LNP-S, PF, 30 mcg/0.3 mL dose 1 completed Rajni Morleyoza null, [facility] 04/07/2023 10:02:45 COVID-19, mRNA, LNP-S, PF, 30 mcg/0.3 mL dose 1 completed Rajni Morleyoza null, [facility] 04/07/2023 10:02:45 COVID-19, mRNA, LNP-S, PF, 30 mcg/0.3 mL dose 1 completed Rajni Morleyoza null, [facility] 04/07/2023 10:02:45 COVID-19, mRNA, LNP-S, PF, 30 mcg/0.3 mL dose, irwin-sucrose 2 completed Rajni Juareza null, [facility] 04/07/2023 10:02:45 pneumococcal polysaccharide PPV23 2 completed Rajni Morleyoza null, [facility] 04/07/2023 10:02:45 Tdap 7 completed Rajni Juareza eitan, [facility] 04/07/2023 10:02:45 Tdap 0 completed Rajni Juareza null, [facility] 04/07/2023 10:02:45 Tdap 3 completed Rajni Morleyoza null, [facility] 04/07/2023 10:02:45 Pneumococcal conjugate PCV 13 5 completed Rajni Morleyoza null, [facility] 04/07/2023 10:02:45 yellow fever live 2 completed Rajni Juareza null, [facility] 04/07/2023 10:02:45 zoster live 9 completed Rajni Morleyoza null, [facility] 04/07/2023 10:02:45 Influenza, high-dose, trivalent, PF 6 completed Rajni Juareza eitan, [facility] 04/07/2023 10:02:45 Influenza, high-dose, trivalent, PF 5 completed Rajni Juareza null, [facility] 04/07/2023 10:02:45 Influenza, split virus, trivalent, preservative 9 [facility] 04/07[facility]2023 10:02:45 Influenza, split virus, trivalent, preservative 0 completed [facility] 04/07/2023 10:02:45 Influenza, split virus, trivalent, preservative 3 [facility] 04/07/2023 10:02:45 Influenza, split virus, trivalent, preservative 8 [facility] 04/07/2023 10:02:45 Influenza, split virus, trivalent, preservative 7 [facility] 04/07/2023 10:02:45 Influenza, split virus, trivalent, preservative 2 [facility] 04/07/2023 10:02:45 Influenza, split virus, trivalent, preservative 6 [facility] 04/07/2023 10:02:45 Hep A, adult 8 completed Rajni Juareza eitan, [facility] 04/07/2023 10:02:45 typhoid, ViCPs 8 [facility] 04/07/2023 10:02:45 Hep A-Hep B 2 [facility] 04/07/2023 10:02:45 Past Encounters Encounter ID Performer Location Encounter Start Date Encounter Closed Date Diagnosis/Indication Diagnosis SNOMED-CT Code Diagnosis ICD10 Code Diagnosis Note [id number] MD YUMIKO Lema_Kaur [facility] [place] [address] 04/08/2022 10:00:51 04/11/2022 15:05:20 Carcinoma of prostate 970288502 C61 2. Prostate cancer (HC)- pT2c - [place] 3+4 = 7 - s/p RAL prostatect xavi in October 2014- PSA remains undetectab le (< 0.03)- Follow-up in Mar 2023 with PSA Testostero ne level below reference range 404586095 R79.89 1. Low Testostero ne- testostero ne in good range- continue Xyosted 75 mg SC weekly- check Testostero ne in 6 months- need to monitor Hgb (annually) [id number] Koby Batista MD [facility] [place] [address] 10/07/2022 10:57:06 10/11/2022 09:16:28 Testosterone level below reference range 608985769 R79.89 1. Low Testostero ne- testostero ne in good range- continue Xyosted 75 mg SC weekly- Follow -up in 6 months with Testostero ne and Hgb Carcinoma of prostate 25 8964340 C61 2. Prostate cancer (HC)- pT2c - [place] 3+4 = 7 - s/p RAL prostatect xavi in October 2014- PSA remains undetectab le (< 0.03)- Follow-up in Mar 2023 with PSA [id number] Koby Batista [facility] [address] [address] 04/07/2023 10:02:01 04/17/2023 14:02:17 Testosterone level below reference range 053138926 R79.89 1. Low Testostero ne- testostero ne in good range- continue Xyosted 75 mg SC weekly- Follow -up in 6 months with Testostero ne Carcinoma of prostate 25 6653777 C61 2. Prostate cancer (HC)- pT2c - [place] 3+4 = 7 - s/p RAL prostatect xavi in October 2014- PSA remains undetectab le (< 0.03)- Follow-up in February 2024 with PSA [id number] Koby Batista [facility] [place] [address] 10/06/2023 09:44:51 10/07/2023 09:57:47 Testosterone level below reference range 325497364 R79.89 1. Low Testostero ne- testostero ne in good range- continue Xyosted 75 mg SC weekly- Follow -up in 12 months with Testostero ne Carcinoma of prostate 25 2720545 C61 2. Prostate cancer (HC)- pT2c - [place] 3+4 = 7 - s/p RAL prostatect [...] 1 MEDICA (MEDICARE REPLACEMENT/ ADVANTAGE - PPO) [id number] [facility] [id number] [facility] 10/07/2022 1 [employer]ICA (MEDICARE REPLACEMENT/ ADVANTAGE - PPO) [id number] [facility] [id number] [facility] 04/07/2023 1 [employer]ICA (MEDICARE REPLACEMENT/ ADVANTAGE - PPO) [id number] [facility] [id number] [facility] 10/06/2023 1 [employer]ICA (MEDICARE REPLACEMENT/ ADVANTAGE - PPO) [id number] [facility] [id number] [facility] Notes Date Note Type Note Provider Name and Address Organization Details Recorded Time 04/08/2022 text/html 76 yo male with history of prostate cancer, low testosterone, and erectile dysfunction. His prostate cancer was treated with a robot-assisted laparoscopic prostatectomy by Dr. Pulido on October 25, 2014. He was staged as a pT2c No - ([place] 3+4 = 7) all surgical margins were [...] stem-cell inject for ED in October in [place]. He tried Oxybutynin ER 5 mg daily (no changed). He has tried Androgel 50 mg daily and 100 mg daily - still has low Testosterone.09/19/20 - IPP and Coloplast male urethral sling placement ([facility] - Dr. Ashok Goins)10/08/21 - He presents [...] and coordinate their care. Koby Batista MD [address] [place] [address],[address], [address], [facility] 04/16/2022 23:09:44 10/07/2022 text/html 77 yo male with history of prostate cancer, low testosterone, and erectile dysfunction. His prostate cancer was treated with a robot-assisted laparoscopic prostatectomy by Dr. Pulido on October 25, 2014. He was staged as a pT2c No - ([place] 3+4 = 7) all surgical margins were [...] stem-cell inject for ED in October in [place]. He tried Oxybutynin ER 5 mg daily (no changed). He has tried Androgel 50 mg daily and 100 mg daily - still has low Testosterone. 09/19/20 - IPP and Coloplast male urethral sling placement ([facility] - Dr. Ashok Goins) 04/08/22 - He [...] and coordinate their care. Koby Batista MD [address] [place] [address],[address], [place], [address], [facility] 10/07/2022 11:50:55 04/07/2023 text/html 77 yo [...] stem-cell inject for ED in October in [place]. He tried Oxybutynin ER 5 mg daily (no changed). He has tried Androgel 50 mg daily and 100 mg daily - still has low Testosterone. Prostate cancer - pT2c No Mx - [place] 3+4=7 - s/p RALP (10/25/14) - (Dr. Pulido) - negative margins - no recurrance to date. 09/19/20 - IPP and Coloplast male urethral sling placement ([facility] - Dr. Ashok Goins) 10/07/22 - He [...] and coordinate their care. Koby Batista MD [address] [place] [address],[facility] [address], [place], [address], [facility] 04/07/2023 10:30:16 10/06/2023 text/html 78 yo [...] stem-cell inject for ED in October in [place]. He tried Oxybutynin ER 5 mg daily [...] IPP and Coloplast male urethral sling placement ([facility] - Dr. Ashok Goins) 10/07/22 - He [...] and coordinate their care. Koby Batista MD [address] [place] [address],[address], [place], [address], [facility] 10/06/2023 10:54:07
--- OUTSIDE RECORDS SUMMARY | 2024-08-15 13:15 | XMS_ITS | Clinical Summary ---
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 Gender Identity Not on file Sexual Orientation [...] this topic Medical Devices Implanted Type Area Weaver Tire Cord Device Identifier Shelf Expiration Date Model / Serial / Lot Graft Bone Infuse Bmp Sm [id number] Implanted:Qt y: 1 on 04/28/2017 by Bonnie Child MD at [facility] Bone/Tissue /Biologic Right: Ankle [employer]-DANEK 09/03/2018 [id number] / [id number] / [id number] G Graft Fascia Sepideh Medium - [id number] Implanted:Qt y: 1 on 09/19/2021 by Dianna Charlton MD at [facility] Bone/Tissue /Biologic Left: Thumb MUSCULOSKELETAL BAEZA 03/26/2024 [id number] / [id number] / Graft Bone Head Femoral 44mm [id number] - [id number] Implanted:Qt y: 1 on 11/11/2022 by Bonnie Child MD at [facility] Bone/Tissue /Biologic Right: Ankle MUSCULOSKELETAL BAEZA 05/04/2026 [id number] / [id number] / Imp Scr Arthrex Blue Locking 3.5x18mm Ar-8935l-18 Implanted:Qt y: 3 on 02/03/2017 by Bonnie Child MD at [facility] Metallic Hardware/An chor Left: Foot ARTHREX AR-8935L- 18 / / AUTOCLAVE D FEBRUARY 03 2017 LOAD 42/03 Imp Scr Arthrex Can 4.0x20mm Ar-8940-20 Implanted:Qt y: 1 on 02/03/2017 by Bonnie Child MD at [facility] Metallic Hardware/An chor Left: Foot ARTHREX AR-8940-2 0 / / AUTOCLAVE D FEBRUARY 03 2017 LOAD 42/03 Imp Plate Arthrex Lapidus [id number] Implanted:Qt y: 1 on 02/03/2017 by Bonnie Child MD at [facility] Metallic Hardware/An chor Left: Foot ARTHREX AR-8941 / / AUTOCLAVE D FEBRUARY 03 2017 LOAD 42/03 Imp Staple Mmi Easyclip Si Forefoot [id number] Gxb15-89-97 - [id number] Implanted:Qt y: 1 on 09/19/2021 by Dianna Charlton MD at [facility] Metallic Hardware/An chor Left: Thumb MEMOMETAL INC 07/06/2025 GPP57-54- 13 / / [id number] Imp Staple Mmi Easyclip Si Forefoot [id number] Ltn40-07-59 - [id number] Implanted:Qt y: 1 on 09/19/2021 by Dianna Charlton MD at [facility] Metallic Hardware/An chor Left: Thumb [employer] INC 04/05/2025 CJO80-90- / / [id number] Nail 12mm 150mm Ankl Rt T2 Im Lck Ti Strl Arthds - [id number] Implanted:Qt y: 1 on 11/11/2022 by Bonnie Child MD at [facility] Metallic Hardware/An chor Right: Ankle [employer] [id number] 02/03/2027 7325-2202 S / / [id number] Imp Scr Strk Lock 5.0x40mm Ft 1896-5040s - [id number] Implanted:Qt y: 1 on 11/11/2022 by Bonnie Child MD at [facility] Metallic Hardware/An chor Right: Ankle [employer] [id number] 05/06/2027 9502-3859 S / / [id number] Imp Scr Strk Lock 5.0x40mm Ft 1896-5040s - [id number] Implanted:Qt y: 1 on 11/11/2022 by Bonnie Child MD at [facility] Metallic Hardware/An chor Right: Ankle [employer] [id number] 02/03/2027 8554-4905 S / / [id number] Imp Scr Strk Lock 5.0x32.5mm Ft 1896-5032s - [id number] Implanted:Qt y: 1 on 11/11/2022 by Bonnie Child MD at [facility] Metallic Hardware/An chor Right: Ankle [employer] [id number] 06/05/2027 3493-0148 S / / [id number] Imp Scr Strk Lock 5.0x85mm Ft s - [id number] Implanted:Qt y: 1 on 11/11/2022 by Bonnie Child MD at [facility] Metallic Hardware/An chor Right: Ankle [employer] [id number] 03/06/202718951504-1713 S / / [id number] Imp End Cap Strk T2 Ft Spnial Scr s - [id number] Implanted:Qt y: 1 on 11/11/2022 by Bonnie Child MD at [facility] Metallic Hardware/An chor Right: Ankle [employer] [id number] 03/06/2027 S / / [id number] Imp Insert Tornier Tibial Ankle Size 3x9mm Lt [id number] Implanted:Qt y: 1 on 02/03/2017 by Bonnie Child MD at [facility] Total Joint Component/I nsert Left: Ankle TORNIER INC 05/03/2020 [id number] / [id number] / Imp Insert Tornier Tibial Ankle Base Size 3 [id number] Implanted:Qt y: 1 on 02/03/2017 by Bonnie Child MD at [facility] Total Joint Component/I nsert Left: Ankle TORNIER INC 02/08/2021 [id number] / [id number] / Imp Comp Tornier Talar Ankle Size 3 Lt [id number] Implanted:Qt y: 1 on 02/03/2017 by Bonnie Child MD at [facility] Total Joint Component/I nsert Left: Ankle TORNIER INC 09/03/2020 PSZ951 / [id number] / Imp Wire Nitin 0.045x4 78.2019 - S78. Implanted:Qt y: 2 on 09/19/2021 by Dianna Charlton MD at [facility] Wire Left: Thumb G SOURCE 78.202 / 78.202 / [id number] Imp Wire Nitin 0.062x4 78.2030 - [id number] Implanted:Qt y: 2 on 09/19/2021 by Dianna Charlton MD at [facility] Wire Left: Thumb G SOURCE 78.203 / 78.203 / [id number] Bme Elite [id number] One Nitinol Implant For Use With Dk-300 Drill Bit Kit Implanted:Qt y: 1 on 02/03/2017 by Bonnie Child MD at [facility] Left: Foot 06/05/2021 EL-2020S2 / / Graft Bone Infuse Bmp Sm [id number] Implanted:Qt y: 1 on 04/24/2020 by Bonnie Child MD at [facility] Right: Ankle [employer]-DANEK 03/06/2022 [id number] / / [id number] Graft Bone Infuse Bmp Lg [id number] - [id number] Implanted:Qt y: 1 on 11/11/2022 by Bonnie Child MD at [facility] Right: Ankle [employer] 07/07/2024 [id number] / / [id number] Y T2 3mm X 285mm K-Wire Implanted:Qt y: 1 on 11/11/2022 by Bonnie Child MD at [facility] Right: Ankle 4989-4300 / / Explanted Type Area Weaver Tire Cord Device Identifier Shelf Expiration Date Model / Serial / Lot Imp Insert Tornier Tibial Ankle Base Size 3 [id number] Implanted:Qty: 1 on 04/28/2017 by Bonnie Child MD at [facility] Explanted:Qty: 1 on 04/24/2020 by Bonnie Child MD at [facility] Total Joint Component /Insert Right: Ankle TORNIER INC 02/14/2021 LVP364 / [id number] / Imp Insert Tornier Tibial Ankle Size 3x11mm Rt [id number] Implanted:Qty: 1 on 04/28/2017 by Bonnie Child MD at [facility] Explanted:Qty: 1 on 04/24/2020 by Bonnie Child MD at [facility] Total Joint Component /Insert Right: Ankle TORNIER INC 07/06/2019 OXX066 / [id number] / Agility Total Ankle Components X3 (Discarded) Explanted:Qty: 1 on 04/28/2017 by Bonnie Child MD at [facility] Right: Ankle Kimberly Talaris Xt Size 3 Right Talar Part Short Peg Implanted:Qty: 1 on 04/28/2017 by Bonnie Child MD at [facility] Explanted:Qty: 1 on 04/24/2020 by Bonnie Child MD at [facility] Right: Ankle 04/17/2020 YIX956 / [id number] / Imp Tibial Tray, Xl, Size 3 Implanted:Qty: 1 on 04/24/2020 by Bonnie Child MD at [facility] Explanted:Qty: 1 on 11/11/2022 by Bonnie Child MD at [facility] Right: Ankle [employer] 03/11/2023 [id number] / / [id number] Imp Kimberly Talaris Tibial Insert Size 3 Right Implanted:Qty: 1 on 04/24/2020 by Bonnie Child MD at [facility] Explanted:Qty: 1 on 11/11/2022 by Bonnie Child MD at [facility] Right: Ankle TORNIER 06/22/2020 YRB667 / [id number] / Imp Kimberly Talaris Xt Talar Part Short Peg Size 3 Right Implanted:Qty: 1 on 04/24/2020 by Bonnie Child MD at [facility] Explanted:Qty: 1 on 11/11/2022 by Bonnie Child MD at [facility] Right: Ankle TORNIER 06/14/2021 RMK400 / [id number] / Procedures Procedure Name Priority Date/Time Associated [...] BEAKER POCT Final Re sult LABORATORY POC [facility] [address] floor, Room [address] [place] [address], [facility] [phone] from Last 3 Months or Most Recently Relevant to Health Maintenance Insurance MEDICARE [place] Advance Directives For more information, please contact: [phone] * Full Code (Latest Code Status on [...] 4:08 PM 02/05/2017 3:35 PM Care Teams Divisional Merchandising Manager Relationship Specialty Start Date End Date Adrien Hernandez MD [address] [place] [address] PCP - General 01/06/17
--- OUTSIDE RECORDS SUMMARY | 2024-08-15 13:15 | XMS_ITS | Continuity of Care Document ---
Author Organization [facility] Address [address] [place] [address] Phone Care Team Providers Care Animal Caregiver Name Role Phone Will Bran MONGE Unavailable [...] Diagnoses Date Provider Providers Copied on Encounter [facility], [address] [facility] [place], [id number] , [place] tel: [phone] [facility] No Information 2 Dany Sotomayor. [address] [facility] [address] [facility] [place], [place], [id number] , [place]. tel: [phone] OFFICE/OUTPATI ENT VISIT, EST [facility], [address] [place] [address] [place], [id number] , [place] tel: [phone] [facility] headache (chief complaint) Headache 8 Tish Willoughby. [facility] [facility] [address], [place], [place], [id number] , [place]. tel: [phone] Referring Provider: [facility] [address] [place] [address], [address]. tel:[phone] OFFICE CONSULTATION [facility], [address] [place] [address], [id number] , [place] tel: [phone] [facility] headache (chief complaint) HeadacheOther salvage determiner (current) drug therapy [address] Schneider [address]. [place] [address], [address], [place], [address], [place]. tel: [phone] Referring Provider: Cm Mirza [facility] [address] [place] [address], [address]. tel:[phone] [facility], [address] [place] [address], [id number] , [place] tel: [phone] [facility] headache (chief complaint) No Information [address] [place] [address], [address], [place], [address], [place]. tel:[phone] Family History Family Member Type Diagnosis Age At Onset No Information Payers Payer name Insurance type Covered constitution party ID Authoriza tion(s) [employer] To 16 [id number] Social History Type Description Quantity Date Captured Comments Sex Male Smoking Status No Information Chief Complaint And Reason For Visit No Information Reason For Referral Reason For Referral No Information Plan Of Treatment Date Type Action Status Future Order: Lab Order COMPL[facility] DRUG ANALYSIS, URINE, WITH MED REPORT ([id number]), Ordered on: Ordered History Of Present Illness Encounter Date Complaint History Of Prese nt Illness headache Severity: modera te. It occurs intermittently, has chronic duration, and is unchanged. Location is frontal left. Symptom is aggravated by sleeping. Relieving factors include OTC meds. Pertinent negatives include fever, nausea and vomiting. headache (comments) Mr. Rubni i s here for a 3-month follow up s/p medical cannabis certification. Reports current medication regimen provides 75% pain relief. Denies side effects from current medication regimen. Pain is stable. 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 Reports he has been taking the [...] or neurologic symptoms.Tested for sleep apnea at [facility]-- no significant findings. Dr. Mirza suggested Mr. Rubin come here to explore injections and medical cannabis. States he currently takes excedrin for acute pain relief.Mr. Rubin would like [facility] to assume managment of pain [...] or neurologic symptoms.Tested for sleep apnea at [facility]-- no significant findings. Underwent PT at -- not helpful. Tried injections at -- not helpful. Reports previous . Has taken for addtional pain relief. Mr. is interested in and would like [facility] to assume managment of pain care. Functional Status Date Functional Assessmen t No Information Instructions Date Instruction Additional Infor mation No Information Assessments Type Assessment Date No Information Patient Care Teams Name Effective Dates (start - stop) Status Members No Information
--- OUTSIDE RECORDS SUMMARY | 2024-08-15 13:15 | XMS_ITS | Clinical Summary ---
Author Organization [facility] Address [address], [place] [address] Care Team Providers Care Infection Prevention Coordinator Name Role Phone Adrien Hernandez MD Primary Care Provider [phone] Source Comments You are receiving this document as you are listed as the primary care provider,follow-up provider, or the patient has been referred to you for consultation.This is in compliance with the Medicare and[facility] EHR Incentive Program,which states Providers who transition their patient to another setting of careor provider of care or refers their patient to another provider of care shouldprovide summary care record for each transition of care or referral. [facility] Allergies No known active allergies Medications Medication [...] age to complete this topic Care Teams Infection Prevention Coordinator Relationship Specialty Start Date End Date Adrien Hernandez MD [address] [place] [address] PCP - General Family Practice 03/04/18
--- OUTSIDE RECORDS SUMMARY | 2024-08-15 13:15 | XMS_ITS | Continuity of Care Document ---
Author Organization [facility] Address [address] [address] [place] [address] Phone Care Team Providers Care Fermentation Operator Name Role Phone Mauricio Zheng MD Unavailable [...] Copied on Encounter Offic/outpt E&m Estab Low-mod [facility], [address] [address], [place], [id number], [place] tel:[phone] [facility] GI Symptoms or Concerns (chief complaint) Incontinence of feces, unspecified fecal incontinence typeAbnormal bowel movement 4 Norm Martínez. [address] [facility], [place], [id number] , [place]. tel:[phone] Referring Provider: Referral Self, USE FOR SELF REFERRALS. [facility], [address] [address], [place], [id number], [place] tel:[phone] [facility] No Information 4 Josesito Willoughby. [address] [facility], [place], [id number] , [place]. tel: [phone] [facility], [address] [address], [place], [id number], [place] tel:[phone] [facility] Anemia, unspecified 1 Dena Valera. [address] [facility], [place], [id number] , [place]. tel: [phone] Referring Provider: Adrien Baig, [address] [place] [address], [address]. tel:[phone] [facility], [address] [address], [place], [id number], [place] tel:[phone] [facility] Anemia, unspecified type 1 Vandana Nunez. [address] [facility], [place], [id number] , [place]. tel: [phone] Referring Provider: Referral Self, USE FOR SELF REFERRALS. Offic/outpt E&m New Mod-hi [facility], [address] [address], [place], [id number], [place] tel:[phone] [facility] Comment (chief complaint) MelenaAnemia, unspecified typeHistory of migraine headachesHistory of atrial fibrillation 1 Vandana Nunez. [address] [facility], [place], [id number] , [place]. tel:[phone] Referring Provider: Referral Self, USE FOR SELF REFERRALS. [facility], [address] [address], [place], [id number], [place] tel:[phone] [facility] No Information 1 Leslee Silva. [address] [facility], [place], [place], [id number] , [place]. tel:[phone] Family History Family Member Type Diagnosis Age [...] ID Authoriza tion(s) [employer] Sr 16 [id number] Social History Type Description Quantity Date Captured [...] anus. He has been followed by a manager chinese and treated with antifungal agent. He also [...] anus. He has been followed by a manager chinese and treated with antifungal agent. He also [...]
--- OUTSIDE RECORDS SUMMARY | 2024-08-15 13:15 | XMS_ITS | Clinical Summary ---
Author Organization [facility] Address [address] [address] Phone Care Team Providers Care Lineman A Class Name Role Phone Unavailable Primary Care Provider [...] 07/29/2017 04/02/2023 Overview (04/02/2023): Recently diagnosed at [facility] Paroxysmal atrial fibrillation 04/10/2017 0 04/02/2023 Thoracic [...] this topic Medical Devices Implanted Type Area Financial Underwriter Device Identifier Shelf Expiration Date Model / Serial / Lot Watchman Flx Closure Device N/A: Heart [id number] / NA / NA Description:1.5/3T Max Spatial Gradient: 2500 gauss/cm No coil restrictions Normal Operating Mode Max whole body CARLOS: 2W/kg; whole body 3.2W/kg Scan Duration: 2W/kg whole body average CARLOS for 60min of continuous RF (a sequence or xssf-st-bawa series/scans without breaks) [facility] MRI Department 04/13/23 Insurance Scaleform GROUP MEDICARE COST PART A&B
--- OUTSIDE RECORDS SUMMARY | 2024-08-15 13:15 | XMS_ITS | Referral Summary ---
Author Organization [employer] Address [facility] [place] [address] Phone Care Team Providers Care Substation Operator Helper Generation Name Role Phone Unavailable Primary Care Provider Unavailabl e Source Comments [employer] is fully rolled out on [employer] Last update 12/09/08.[facility] Allergies Active Allergy Reactions Criticality Noted Date [...] daily. 5 mL 1 2 11:04 AM DIVEMASTER 05/21/20 Active moxifloxacin (VIGAMOX) 0.5 % ophthalmic solution Place 1 drop into LEFT eye 4 times daily. 3 mL 1 2 11:04 AM DIVEMASTER 05/21/20 22 Active ketorolac (ACULAR) 0.5 % ophthalmic solution Place 1 drop into LEFT eye 4 times daily. 5 mL 1 2 11:04 AM DIVEMASTER 05/21/20 22 Active Active Problems Problem Noted Date Diagnosed Date Myopia with presbyopia of left eye 06/20/2022 Assessment & Plan (06/20/2022 11:15 AM DIVEMASTER): Refractive Error/Presbyopia - The results of the refraction were discussed with the patient and a new prescription for bifocal/progressive spectacles was dispensed Pseudophakia, left eye 05/29/2022 Assessment & Plan (08/19/2022 10:45 AM DIVEMASTER): - 3 months s/p CE IOL of [...] Monitor Assessment & Plan (06/20/2022 11:15 AM DIVEMASTER): One month s/p CE IOL of the left eye. IOP today slightly elevated to 28 in the left eye, which may be steroid response. - Discontinue remainder of postop drops - Return in 1-2 months for IOP check -- if IOP remains elevated, consider starting IOP lowering agent Assessment & Plan (05/29/2022 9:55 AM DIVEMASTER): One week status post uncomplicated cataract surgery [...] on file Legal Sex Male 4:12 AM DIVEMASTER Gender Identity Not on file Sexual Orientation Not on file Last Filed Vital Signs Vital Sign Reading Time Taken Comments Blood Pressure 126/91 05/21/2022 10:20 AM DIVEMASTER Pulse 64 05/21/2022 10:20 AM DIVEMASTER Temperature 36.3 C (97.3 F) 05/21/2022 9:45 AM DIVEMASTER Respiratory Rate 16 05/21/2022 10:0 2 AM DIVEMASTER Oxygen Saturation 97% 05/21/2022 10: 02 AM DIVEMASTER Inhaled Oxygen Concentration - - Weight 94.7 kg (208 lb 12.8 oz) 05/21/2022 6:48 AM DIVEMASTER Height 182.9 cm (6') 05/21/2022 6:48 AM DIVEMASTER Body Mass Index 28.32 05/21/2022 6:48 AM DIVEMASTER Plan of Treatment Not on file Medical Devices Implanted Type Area Manager Of Community Relations Device Identifier Shelf Expiration Date Model / Serial / Lot Lens Intraocular 20.5 Diopter - [id number] Implanted:Qty: 1 on 05/21/2022 by Navin Ramirez MD at [facility] Lens Left: Eye [employer] 01/28/2026 [id number] / [id number] / Capsular Tension Ring,Amy Mr-1420 Implanted:Qty: 1 on 05/21/2022 by Osvaldo Sparrow MD at [facility] Left: Eye [employer] 05/05/2026 [id number] / / CBLBJC Insurance MEDICARE MEDIC
--- OUTSIDE RECORDS SUMMARY | 2024-08-15 13:15 | XMS_ITS | Clinical Summary ---
Author Organization [employer] Address [facility] [place] [address] Phone Care Team Providers Care Sba Business Development Officer Name Role Phone Unavailable Primary Care Provider Unavailabl e Source Comments [employer] (acquired by [employer] in 2014) is fully rolled out on [employer]. Last update 12/09/08.[employer] Allergies Active Allergy Reactions Criticality Noted Date [...] daily. 5 mL 1 2 11:04 AM EXPEDITER SERVICE ORDER 05/21/20 Active moxifloxacin (VIGAMOX) 0.5 % ophthalmic solution Place 1 drop into LEFT eye 4 times daily. 3 mL 1 2 11:04 AM EXPEDITER SERVICE ORDER 05/21/20 22 Active ketorolac (ACULAR) 0.5 % ophthalmic solution Place 1 drop into LEFT eye 4 times daily. 5 mL 1 2 11:04 AM EXPEDITER SERVICE ORDER 05/21/20 22 Active Active Problems Problem Noted Date Diagnosed Date Myopia with presbyopia of left eye 06/20/2022 Assessment & Plan (06/20/2022 11:15 AM EXPEDITER SERVICE ORDER): Refractive Error/Presbyopia - The results of the refraction were discussed with the patient and a new prescription for bifocal/progressive spectacles was dispensed Pseudophakia, left eye 05/29/2022 Assessment & Plan (08/19/2022 10:45 AM EXPEDITER SERVICE ORDER): - 3 months s/p CE IOL of [...] Monitor Assessment & Plan (06/20/2022 11:15 AM EXPEDITER SERVICE ORDER): One month s/p CE IOL of the left eye. IOP today slightly elevated to 28 in the left eye, which may be steroid response. - Discontinue remainder of postop drops - Return in 1-2 months for IOP check -- if IOP remains elevated, consider starting IOP lowering agent Assessment & Plan (05/29/2022 9:55 AM EXPEDITER SERVICE ORDER): One week status post uncomplicated cataract surgery [...] on file Legal Sex Male 4:12 AM EXPEDITER SERVICE ORDER Gender Identity Not on file Sexual Orientation Not on file Last Filed Vital Signs Vital Sign Reading Time Taken Comments Blood Pressure 126/91 05/21/2022 10:20 AM EXPEDITER SERVICE ORDER Pulse 64 05/21/2022 10:20 AM EXPEDITER SERVICE ORDER Temperature 36.3 C (97.3 F) 05/21/2022 9:45 AM EXPEDITER SERVICE ORDER Respiratory Rate 16 05/21/2022 10:0 2 AM EXPEDITER SERVICE ORDER Oxygen Saturation 97% 05/21/2022 10: 02 AM EXPEDITER SERVICE ORDER Inhaled Oxygen Concentration - - Weight 94.7 kg (208 lb 12.8 oz) 05/21/2022 6:48 AM EXPEDITER SERVICE ORDER Height 182.9 cm (6') 05/21/2022 6:48 AM EXPEDITER SERVICE ORDER Body Mass Index 28.32 05/21/2022 6:48 AM EXPEDITER SERVICE ORDER Plan of Treatment Health Maintenance Due Date [...] this topic Medical Devices Implanted Type Area Patient Accounts Coordinator Device Identifier Shelf Expiration Date Model / Serial / Lot Lens Intraocular 20.5 Diopter - [id number] Implanted:Qty: 1 on 05/21/2022 by [facility] Left: Eye [employer] 01/28/2026 MA60AC / [id number] / Capsular Tension RingAmy Mr-1420 Implanted:Qty: 1 on 05/21/2022 by Osvaldo Sparrow MD at [facility] Left: Eye [employer] 05/05/2026 MR-1420 / / CBLBJC Insurance MEDICARE [facility]
--- OUTSIDE RECORDS SUMMARY | 2024-08-15 13:15 | XMS_ITS | Clinical Summary ---
Author Organization [facility] Address [place], [place] [address] Care Team Providers Care Monotype Mechanic Name Role Phone Adrien Hernandez MD Primary Care Provider [phone] Allergies Active Allergy Reactions Criticality Noted Date [...] Cardiac Devices: Comments: HF: DNQ Structural: Tendyne Woodson: No d/t mild MR Prevention: DNQ Problem [...] lung 07/29/2017 Overview (07/29/2017): Recently diagnosed at [facility] Paroxysmal atrial fibrillation 04/10/2017 Thoracic aortic aneurysm [...] Department Care Team Description 08/14/2024 Nurse Triage [facility] [address] [place] [phone] Yadira Coe RN Atrial Fibrillation 08/12/2024 Telephone [facility] [address] [place] [phone] Gabriel Antony, ISELA Follow Up 08/11/2024 Telephone [facility] [address] [place] [phone] Cardiothoracic, [place] Appointment 08/11/2024 Telephone [facility] [address] [place] [phone] Koby Navarro MD Appointment; Questions 08/05/2024 4:00 PM MOVIE SHOT CAMERAMAN Office Visit [facility] [address] [facility] [place] [address] Ti Goodman MD CV General Cardiology Est (2 recent cardioversion, not feeling well on amiodarone. ) 08/05/2024 Travel 08/04/2024 Telephone [facility] [address] [place] [phone] Ti Goodman MD Care Coordination 07/30/2024 Nurse Triage [facility] [address] [place] [address] Ti Goodman MD Atrial Fibrillation 07/27/2024 Orders Only [facility] Scanner 1 scan: (1-Ord) [facility], CHEST 2V, 07/27/2024 07/27/2024 Telephone [facility] [address] [place] [address] Ti Goodman MD Concerns 06/28/2024 Telephone [facility] [address] [place] [address] Donny Kirkpatrick MD Questions (Regarding increased pain since ZAHIDA on 06/22/24) 06/22/2024 8:00 AM MOVIE SHOT CAMERAMAN Office Visit [facility] at [facility] [address] [facility] [place] [address] Donny Kirkpatrick MD Procedure (Left L4-5 TFESI) 06/15/2024 1:35 PM MOVIE SHOT CAMERAMAN Office Visit [facility] [address] [place] [address] Adrien Hernandez MD Medicare ANNUAL (subsequent) Visit (79 yr old male) 06/15/2024 Travel 06/11/2024 2:00 PM MOVIE SHOT CAMER[employer]AN Office Visit [facility] [address] [place] [address] Leslie Perry, Pneumonia (Was prescribed azithromycin on 06/08, feels he is not getting any better) 06/10/2024 4:30 PM MOVIE SHOT CAMERAMAN Phone Office Visit [facility] [address] [facility] [address] [place] [address] Geraldo Rhodes MD 06/10/2024 Travel 06/09/2024 Travel 06/08/2024 2:45 PM MOVIE SHOT CAMERAMAN Office Visit [facility] [address] [place] [address] Sotero Mahmood MD Cough (> 1 week of coughing/congestion ) 06/08/2024 Travel 05/31/2024 Orders Only [facility] [address] [place] [address] Mariola Frankel PA Imaging 05/31/2024 Telephone [facility] [address] [place] [address] Geraldo Rhodes MD Aortic Aneurysm 05/27/2024 Transcribe Orders [facility] [address] [place] [address] Donny Kirkpatrick MD 05/26/2024 Refill [facility] [address] [place] [address] Adrien Hernandez MD Refill Request (Celecoxib) 05/24/2024 2:40 PM MOVIE SHOT CAMERAMAN Office Visit [facility] [address] [facility] [place] [address] Tiarra Erazo MD Ear Problem (Ringing in the ear for 10 days. Impacted ears. ) 05/24/2024 Travel 05/21/2024 Orders Only [facility] Scanner 1 scan: (1-Ord) QUIN, LUMBAR SPINE WO CONTRAST, 05/21/2024 05/20/2024 Telephone [facility] [address] [place] [address] Koby Navarro MD Questions (Results) 05/18/2024 Refill [facility] [address] [place] [address] Adrien Hernandez MD Refill Request (Amlodipine) 05/17/2024 Refill [facility] [address] [place] [address] Adrien Hernandez MD Refill Request (Celecoxib) from [...] on file Legal Sex Male 5:43 AM MOVIE SHOT CAMERAMAN Gender Identity Not on file Sexual Orientation Not on file 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 Not on file Not on file Obstetrics History Last Filed Vital Signs Vital Sign Reading Time Taken Comments Blood Pressure 134/78 08/05/2024 4:06 PM MOVIE SHOT CAMERAMAN Pulse 72 08/05/2024 4:06 PM MOVIE SHOT CAMERAMAN Temperature 36.2 C (97.2 F) 06/08/2024 2:50 PM MOVIE SHOT CAMERAMAN Respiratory Rate 18 10/30/2023 4:31 PM CDT Oxygen Saturation 97% 08/05/2024 4:06 PM MOVIE SHOT CAMERAMAN Inhaled Oxygen Concentration - - Weight 96.2 kg (212 lb) 08/05/2024 4:06 PM MOVIE SHOT CAMERAMAN Height 182.9 cm (6') 08/05/2024 4:06 PM MOVIE SHOT CAMERAMAN Body Mass Index 28.75 08/05/2024 4:06 PM MOVIE SHOT CAMERAMAN Plan of Treatment Upcoming Encounters Date Type Department Care Team (Late st Contact Info) Description 09/16/2024 9:00 AM CDT Office Visit [facility] [address] [facility] [address] [place] [address] Ti Goodman MD [address] [address] [place] [address] Health Maintenance Due Date Last Done Comments [...] history exists Medical Devices Implanted Type Area Certified Forklift Operator Device Identifier Shelf Expiration Date Model / Serial / Lot Amnio Fix 2.0x12.0cm Implanted:Qty: 1 on 10/25/2014 at [facility] [id number] / / [id number] Description:AMNIO FIX 2.0X12 .0CM Procedures Procedure Name Priority Date/Time Associated Diagnosis Comments EKG 12 LEAD Routine 08/05/2024 4:02 PM MOVIE SHOT CAMERAMAN Paroxysmal atrial fibrillation (HC) SCAN-RADIOLOGY REPORT 07/27/2024 12:00 AM MOVIE SHOT CAMERAMAN AMB EPIDURAL STEROID INJECTION Routine 06/22/2024 12:00 AM MOVIE SHOT CAMERAMAN Lumbar radiculopathy CBC WITH AUTO DIFFERENTIAL Routine 06/08/2024 3:35 PM MOVIE SHOT CAMERAMAN Walking pneumonia SCAN-MRI INTERPRETATION 05/21/2024 12:00 AM MOVIE SHOT CAMERAMAN ANTI HCV Routine 05/02/2015 7:09 AM CDT Need for hepatitis C screening test from Last 3 Months or Most Recently Relevant to Health Maintenance Results * EKG 12 LEAD (08/05/2024 4:02 PM MOVIE SHOT CAMERAMAN) Interpretation Normal sinus rhythm Normal ECG When compared with ECG of 25-Mar-2024 15:41, MANUAL COMPARISON REQUIRED DATA IS UNCONFIRMED Ventricular Rate 72 BPM Atrial Rate 72 BPM P-R Interval 194 ms QRS Duration 94 ms QT 418 ms QTc 457 ms P Baring 60 degrees R Baring 39 degrees T Baring 8 degrees 08/05/2024 4:02 PM MOVIE SHOT CAMERAMAN 08/05/2024 5:11 PM MOVIE SHOT CAMERAMAN us Ti Goodman MD EKG ORD Final Resul t * SCAN-RADIOLOGY REPORT (07/27/2024 12:00 AM MOVIE SHOT CAMERAMAN) Anatomical Region Laterality Modality Other us Scanner OTHER Final Result * AMB EPIDURAL STEROID INJECTION (06/22/2024 12:00 AM MOVIE SHOT CAMERAMAN) us Donny Kirkpatrick MD NEUROLOGY ORD Final Resu lt * CBC AND DIFFERENTIAL (06/08/2024 3:35 PM MOVIE SHOT CAMERAMAN) WHITE BLOOD CELL COUNT 5.2 3.8 - [...] [facility] BASOPHILS 0.8 % [facility] Blood BLOOD SPECIMEN / Unknown 06/08/2024 3:35 PM MOVIE SHOT CAMERAMAN 06/08/2024 3:36 PM MOVIE SHOT CAMERAMAN Sotero Mahmood MD HEMATOLOGY Final Resu lt [facility] [address] [place] [address], [address] [address] * SCAN-MRI INTERPRETATION (05/21/2024 12:00 AM MOVIE SHOT CAMERAMAN) Anatomical Region Laterality Modality Other us Scanner OTHER Final Result * ANTI HCV [[id number]] (05/02/2015 7:09 AM CDT) HEPATITIS C ANTIBODY Non-Reacti ve Non-Reacti ve 05/02/2015 2:42 PM CDT [facility] Blood specimen (specimen) BLOOD SPECIMEN / Unknown Venipuncture / Unknown 05/02/2015 7:09 AM CDT 05/02/2015 7:09 AM CDT N[facility]ative [facility] 05/02/2015 2:42 PM CDT Antibodies to HCV not detected; does not exclude the possibility of exposure to HCV. us Maikol Cortes MD SEND OUTS Final Result [facility] [address] [place] [address], [place] from Last 3 Months or Most Recently Relevant to Health Maintenance Insurance MEDICA PRIME SOLUTIONS MR PB ONLY MEDICARE PART B HB ONLY MEDICA PRIME SOLUTION HB MEDICARE PART A HB ONLY Advance Directives Documents on File Type Date Recorded Patient [employer] Expl anation Healthcare Directive 06/21/2024 024 Healthcare Directive 05/08/2016 2:18 PM [facility], 01/26/2016 Healthcare Directive 05/23/2014 11:40 AM [facility], 07/18/2005 * Full Code (Latest Code [...] 7:15 AM 12/06/2014 12:26 PM Care Teams Monotype Mechanic Relationship Specialty Start Date End Date Adrien Hernandez MD [address] [place] [address] PCP - General Family Practice 10/28/16
[2024-08-15 13:17] LABS: Basophils Absolute Auto 0.04 K/uL (0.00-0.30); Basophils Percent Auto 0.7 % (0.0-3.0); Eosinophils Absolute Auto 0.39 K/uL (0.00-0.50); Eosinophils Percent Auto 6.8 % (0.0-7.0); Hematocrit 50.1 % (37.0-53.0); Hemoglobin* 16.5 gm/dL (13.5-17.5); Immature Granulocytes Abs Auto 0.02 K/uL (0.00-0.30); Immature Granulocytes Pct Auto 0.4 %; Lymphocytes Percent Auto 14.7 % (20-44); Mean Corpuscular HGB Conc 33 gm/dL (32-36); Mean Corpuscular Hemoglobin 31 pg (26-34); Mean Corpuscular Volume 94 fL (80-100); Monocytes Percent Auto 13.9 % (0.0-11.0); Neutrophils Absolute Auto 3.62 K/uL (1.7-7.0); Neutrophils Percent Auto 63.5 % (42.0-72.0); Platelet Count* 198 K/uL (140-440); RDW Coefficient of Variation % 13.5 % (11.5-15.5); Red Blood Count 5.33 m/uL (4.30-5.90)
[2024-08-15 13:18] LABS: Troponin, Point-of-Care* 0.01 ng/ml (0.01-0.04)
[2024-08-15 13:24] LABS: Slide Review Reflex No
[2024-08-15 13:29] LABS: Chloride* 103 mmol/L (96-114); Sodium* 138 mmol/L (135-149)
[2024-08-15 13:30] LABS: Potassium* 4.1 mmol/L (3.6-5.1)
[2024-08-15 13:32] LABS: Estimated Glomerular Filt Rate 78 ml/min
[2024-08-15 13:33] LABS: Anion Gap 9 mEq/L (7-15); Blood Urea Nitrogen* 20 mg/dL (7-30); Calcium* 9.3 mg/dL (8.4-10.6); Carbon Dioxide* 26 mmol/L (20-32); Glucose* 98 mg/dL (60-115)
[2024-08-15] MEDS: PROPOFOL 10 MG/ML INJ 200 MG IVP (14:29)
== END 2024-08-15 15:12 | disposition home or self-care (01) ==
PROVIDERS: Emergency Provider Emergency Medicine; PCP Surgery
DX: I48.20 Chronic atrial fibrillation, unspecified (principal)
CPT/HCPCS: 92960; 36415; 80048; 84484; 85025; 99284; 99285; J2704

== ENCOUNTER 2024-10-13 19:37 | Emergency (ER) | payer MEDICARE, OTHER, SELFPAY ==
--- OUTSIDE RECORDS SUMMARY | 2024-10-13 19:39 | XMS_ITS | Clinical Summary ---
Author Organization [facility] Address [address], [place] [address] Care Team Providers Care Recreation Facility Manager Name Role Phone Adrien Hernandez MD Primary Care Provider Source Comments You are receiving this document as you are listed as the primary care provider,follow-up provider, or the patient has been referred to you for consultation.This is in compliance with the Medicare andMedicaid EHR Incentive Program,which states Providers who transition their patient to another setting of careor provider of care or refers their patient to another provider of care shouldprovide summary care record for each transition of care or referral. [facility] Allergies No known active allergies Medications * This document contains information received from the source organization and may not represent a complete record from that organization. apixaban (ELIQUIS) 5 MG tablet Take 5 [...] Tablet by mouth daily. 30 Tablet 1 8 Active ketoconazole (NIZORAL) 2 % cream Apply topically daily. 120 g 11 8 Active triamcinolone acetonide (KENALOG) 0.1 % cream Apply to affected areas tid-qid prn 80 g 2 8 Active amLODIPine (NORVASC) 5 MG tablet Take 5 mg by mouth. 0 Active Testosterone Enanthate 75 MG/0.5ML SOAJ Inject subcutaneously . 0 Active Tadalafil (CIALIS) 5 MG tablet Take 5 mg by mouth. 0 Active omeprazole (PRILOSEC) 20 MG capsule Take 20 mg by mouth. 0 Active oxybutynin (DITROPAN XL) 5 MG 24 hour release tablet Take 1 Tablet by mouth daily for 30 days. 30 Tablet 0 Active Active Problems No known active problems Social History Tobacco Use Types Packs/Day Years Used Date Smoking Tobacco: Never Assessed Sex and Gender Information Value Date Recorded Sex Assigned at Not on file Legal Sex Male 10:58 AM CDT Gender Identity Not on file Sexual Orientation Not on file Plan of Treatment Health Maintenance Due Date Last Done Comments Hep C Screening (Preventive Services) 1945 Medicare Annual Wellness Visit 1945 RSV (1 - 1-dose 75+ series) 2022 COVID-19 Vaccine (2023- season) 2024 10/04/2020, 09/13/2020 Influenza (#1) 2024 04/06/2020, 03/08, 04/13/2018, Additional history exists DTaP/Tdap/Td (5 - Tdap) 01/15/2030 01/16/20, 02/19/2013, 10/31/2006, Additional history exists Pneumococcal 50+ Yrs Completed 06/26/2015, 06/11/20 12 HepA Aged [...] on patient's age to complete this topic Meningococcal B Aged Out No longer el igible based on patient's age to complete this topic Insurance MEDICARE MANAGED CARE MEDICA MEDICA PRIME SOLUTION Care Teams Recreation Facility Manager Relationship Specialty Start Date End Date Adrien Hernandez MD [address] [place] [address] PCP - General Family Practice 03/04/18
--- OUTSIDE RECORDS SUMMARY | 2024-10-13 19:40 | XMS_ITS | Clinical Summary ---
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 Gender Identity Not on file Sexual [...] exists PHQ-2 (once per calendar year) 2024 DIABETES SCREENING 11/12/2025 11/12/2022, 0 11/12/2022, 04/25/2020, Additional history exists DTAP/TDAP/TD IMMUNIZATION (5 [...] this topic Medical Devices Implanted Type Area Claims Counsel Device Identifier Shelf Expiration Date Model / Serial / Lot Graft Bone Infuse Bmp [id number] Implanted:Qt y: 1 on 04/28/2017 by Bonnie Child MD at [facility] Bone/Tissue /Biologic Right: Ankle [employer]ANEK 09/03/2018 [id number] / [id number] / [id number] G Graft Fascia Sepideh Medium - [id number] Implanted:Qt y: 1 on 09/19/2021 by Dianna Charlton MD at [facility] Bone/Tissue /Biologic Left: Thumb MUSCULOSKELETAL BAEZA 03/26/2024 [id number] / [id number] / Graft Bone Head Femoral 44mm 853158 - [id number] Implanted:Qt y: 1 on 11/11/2022 by Bonnie Child MD at [facility] Bone/Tissue /Biologic Right: Ankle MUSCULOSKELETAL BAEZA 05/04/2026 [id number] / [id number] / Imp Scr Arthrex Blue Locking 3.5x18mm Ar-8935l-18 Implanted:Qt y: 3 on 02/03/2017 by Bonnie Child MD at [facility] Metallic Hardware/An chor Left: Foot ARTHREX AR-8935L- 18 / / AUTOCLAVE D FEBRUARY 03 2017 LOAD 42/03 Imp Scr Arthrex Can 4.0x20mm Ar-8940-20 Implanted:Qt y: 1 on 02/03/2017 by Bonnie Child MD at [facility] Metallic Hardware/An chor Left: Foot ARTHREX AR-8940-2 0 / / AUTOCLAVE D FEBRUARY 03 2017 LOAD 42/03 Imp Plate Arthrex Lapidus [id number] Implanted:Qt y: 1 on 02/03/2017 by Bonnie Child MD at [facility] Metallic Hardware/An chor Left: Foot ARTHREX AR-8941 / / AUTOCLAVE D FEBRUARY 03 2017 LOAD 42/03 Imp Staple Mmi Easyclip Si Forefoot 59w46r00sz Xuo12-78-59 - [id number] Implanted:Qt y: 1 on 09/19/2021 by Dianna Charlton MD at [facility] Metallic Hardware/An chor Left: Thumb [employer] INC 07/06/2025 ZFB50-19- 13 / / [id number] Imp Staple Mmi Easyclip Si Forefoot 62i80w60tm Odz88-44-75 - [id number] Implanted:Qt y: 1 on 09/19/2021 by Dianna Charlton MD at [facility] Metallic Hardware/An chor Left: Thumb [employer] 04/05/2025 ZVV81-18- 13 / / [id number] Nail 12mm 150mm Ankl Rt T2 Im Lck Ti Strl Arthds - [id number] Implanted:Qt y: 1 on 11/11/2022 by Bonnie Child MD at [facility] Metallic Hardware/An chor Right: Ankle [employer] [id number] 02/03/2027 0268-8377 S / / [id number] Imp Scr Strk Lock 5.0x40mm Ft 1896-5040s - [id number] Implanted:Qt y: 1 on 11/11/2022 by Bonnie Child MD at [facility] Metallic Hardware/An chor Right: Ankle [employer] [id number] 05/06/2027 3768-8217 S / / [id number] Imp Scr Strk Lock 5.0x40mm Ft 1896-5040s - [id number] Implanted:Qt y: 1 on 11/11/2022 by Bonnie Child MD at [facility] Metallic Hardware/An chor Right: Ankle [employer] [id number] 02/03/2027 6153-3695 S / / [id number] Imp Scr Strk Lock 5.0x32.5mm Ft 1896-5032s - [id number] Implanted:Qt y: 1 on 11/11/2022 by Bonnie Child MD at [facility] Metallic Hardware/An chor Right: Ankle [employer] [id number] 06/05/2027 7457-4178 S / / [id number] Imp Scr Strk Lock 5.0x85mm Ft 1896-5085s - [id number] Implanted:Qt y: 1 on 11/11/2022 by Bonnie Child MD at [facility] Metallic Hardware/An chor Right: Ankle [employer] [id number] 03/06/2027 9477-3716 S / / [id number] Imp End Cap Strk T2 Ft Spnial Scr 1826-0003s - [id number] Implanted:Qt y: 1 on 11/11/2022 by Bonnie Child MD at [facility] Metallic Hardware/An chor Right: Ankle [employer] [id number] 03/06/202718252272-8718 S / / [id number] Imp Insert Tornier Tibial Ankle Size 3x9mm Lt [id number] Implanted:Qt y: 1 on 02/03/2017 by Bonnie Child MD at [facility] Total Joint Component/I nsert Left: Ankle [employer] 05/03/2020 [id number] / [id number] / Imp Insert Tornier Tibial Ankle Base Size 3 [id number] Implanted:Qt y: 1 on 02/03/2017 by Bnonie Child MD at [facility] Total Joint Component/I nsert Left: Ankle [employer] 02/08/2021 KDY640 / [id number] / Imp Comp Tornier Talar Ankle Size 3 Lt [id number] Implanted:Qt y: 1 on 02/03/2017 by Bonnie Child MD at [facility] Total Joint Component/I nsert Left: Ankle [employer] 09/03/2020 FBX665 / [id number] / Imp Wire Nitin 0.045x4 - . Implanted:Qt y: 2 on 09/19/2021 by Dianna Charlton MD at [facility] Wire Left: Thumb G SOURCE 78.202 / 78.202 / [id number] Imp Wire Nitin 0.062x4 - . Implanted:Qt y: 2 on 09/19/2021 by Dianna Charlton MD at [facility] Wire Left: Thumb G SOURCE 78.203 / 78.203 / [id number] Bme Elite [id number] One Nitinol Implant For Use With Dk-300 Drill Bit Kit Implanted:Qt y: 1 on 02/03/2017 by Bonnie Child MD at [facility] Left: Foot 06/05/2021 EL-2020S2 / / Graft Bone Infuse Bmp Sm [id number] Implanted:Qt y: 1 on 04/24/2020 by Bonnie Child MD at [facility] Right: Ankle [employer] 03/06/2022 [id number] / / [id number] Graft Bone Infuse Bmp Lg [id number] - [id number] Implanted:Qt y: 1 on 11/11/2022 by Bonnie Child MD at [facility] Right: Ankle [employer] 07/07/2024 [id number] / / [id number] Y T2 3mm X 285mm K-Wire Implanted:Qt y: 1 on 11/11/2022 by Bonnie Child MD at [facility] Right: Ankle [id number] / / Explanted Type Area Claims Counsel Device Identifier Shelf Expiration Date Model / Serial / Lot Imp Insert Tornier Tibial Ankle Base Size 3 [id number] Implanted:Qty: 1 on 04/28/2017 by Bonnie Child MD at [facility] Explanted:Qty: 1 on 04/24/2020 by Bonnie Child MD at [facility] Total Joint Component /Insert Right: Ankle [employer] 02/14/2021 [id number] / [id number] / Imp Insert Tornier Tibial Ankle Size 3x11mm Rt [id number] Implanted:Qty: 1 on 04/28/2017 by Bonnie Child MD at [facility] Explanted:Qty: 1 on 04/24/2020 by Bonnie Child MD at [facility] Total Joint Component /Insert Right: Ankle [employer] 07/06/2019 RHN063 / [id number] / Agility Total Ankle Components X3 (Discarded) Explanted:Qty: 1 on 04/28/2017 by Bonnie Child MD at [facility] Right: Ankle Kimberly Talaris Xt Size 3 Right Talar Part Short Peg Implanted:Qty: 1 on 04/28/2017 by Bonnie Child MD at [facility] Explanted:Qty: 1 on 04/24/2020 by Bonnie Child MD at [facility] Right: Ankle 04/17/2020 [id number] / [id number] / Imp Tibial Tray, Xl, Size 3 Implanted:Qty: 1 on 04/24/2020 by Bonnie Child MD at [facility] Explanted:Qty: 1 on 11/11/2022 by Bonnie Child MD at [facility] Right: Ankle [employer] 03/11/2023 [id number] / / [id number] Imp Kimberly Talaris Tibial Insert Size 3 Right Implanted:Qty: 1 on 04/24/2020 by Bonnie Child MD at [facility] Explanted:Qty: 1 on 11/11/2022 by Bonnie Child MD at [facility] Right: Ankle TOR[employer]ER 06/22/2020 [id number] / [id number] / Imp Kimberly Talaris Xt Talar Part Short Peg Size 3 Right Implanted:Qty: 1 on 04/24/2020 by Bonnie Child MD at [facility] Explanted:Qty: 1 on 11/11/2022 by Bonnie Child MD at [facility] Right: Ankle TORNIER 06/14/2021 [id number] / [id number] / Procedures Procedure Name Priority Date/Time Associated [...] CDT 11/12/2022 1:55 AM CDT us Bonnie hCild MD LAB - BEAKER POCT Final Re sult LABORATORY POC [facility] [address], [address] [place] [address], [facility] [phone] from Last 3 Months or Most Recently Relevant to Health Maintenance Insurance MEDICARE [employer] Advance Directives For more information, please contact: [phone] * Full Code (Latest Code Status on [...] 4:08 PM 02/05/2017 3:35 PM Care Teams Injection Molding Machine Tender Relationship Specialty Start Date End Date Adrien Hernandez MD [address] [place] [address] PCP - General 01/06/17
--- OUTSIDE RECORDS SUMMARY | 2024-10-13 19:40 | XMS_ITS | Continuity of Care Document ---
Author Organization [facility], [facility] Address [address] [place] [address] Care Team Providers Care Founder & Ceo Name Role Phone KJ RODAS Primary Care Provider Assessment No assessment recorded. Plan of Treatment Reminders Order Date Submit Date Provider Last Modified By Organization Details Last Modified Time Details Appointments None recorded. Lab PSA, total, serum or plasma [address]- Lab, [address] [place], [address], 5 10:58:30 testosteron e, total, serum [address] Lab, [address] [place], [address], 5 10:58:21 hemoglobin (Hb), blood [address] Lab, [address] [place], [address], 5 10:58:26 Referral None recorded. Procedures None recorded. Surgeries None recorded. Imaging None recorded. Medication Orders None recorded. Patient TargetsNo targets recorded. Patient Instructions Encounter Date Encounter Id Patient Instructions Last Modified By Organization Details Last Modified Time 10/08/2024 [id number] Telephone - 11 minutes [email or web address] Not available 10/08/2024 10:43:42 Reason for Referral None Reported. 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 Procedures Surgical History Date Name Laterality Status Provider Name and Address Organization Details Recorded Time 09/20/19 21 implantation of penile prosthesis completed [facility] 04/08/2022 10:07:35 09/20/19 21 insertion of single incision mid-urethral mini-sling completed Zaheer [facility] 04/08/2022 10:08:14 10/26/19 15 prostatectomy completed [facility] 04/08/2022 10:06:57 Imaging Results None recorded. Procedure Notes None recorded. Medical Equipment None Reported. Allergies Allergen ID Allergen Name Allergen Category Reaction Reaction Severity Criticality Documentation Date Start Date Code Code System Note Provider Name and Address Organization Details Recorded Time 721655 naproxen medicatio n Not available Not available Not available 12/23/20192014 7258 RxNorm Not Available Not Available Not Available 624763 Product containin g 3-hydroxy -3-methyl glutaryl- coenzyme A reductase inhibitor (product) medicatio n myalgias (muscle pain) Not available Not available 04/08/2022 52302 009 SNOMED Not Available Not Available Not Available Medications Name Sig Start Date Stop Date Status Note LastModified by Organization Details LastModified Time senna-s 8.6mg-50mg tablets TAKE 1 OR 2 TABLETS BY MOUTH DAILY TO PREVENT CONSTIPAT ION 10/08 completed Not Available Not Available Not Available amoxicillin 500 mg capsule TK FOUR [...] 3 TO 5 MINUTES THEN RINSE OFF 10/08 completed Not Available Not Available Not Available tizanidine 2 mg tablet TAKE 1-2 TABLET BY MOUTH AT BEDTIME active Not Available Not Available No t Available azithromyci n 250 mg tablet TAKE 2 TABLETS BY MOUTH FOR 1 DAY THEN TAKE 1 TABLET BY MOUTH DAILY FOR 4 DAYS 10/08 completed Not Available Not Available Not Available amiodarone 200 mg tablet TAKE 1 TABLET BY MOUTH DAILY active Not Available Not Available No [...] NEEDED FOR PAIN. MAX DAILY 8 TABLETS 10/08 completed Not Available Not Available Not Available sotalol 80 mg tablet TAKE 1 TABLET BY MOUTH TWICE DAILY BEFORE MEALS 10/08 completed Not Available Not Available Not Available prednisone 20 mg tablet 04/07 completed Not Available Not Available Not Available betamethaso ne, augmented 0.05 % topical cream 04/07 completed Not Available Not Available Not Available metronidazo le 500 mg tablet TAKE 1 TABLET BY MOUTH EVERY MORNING AND 1 EVERY EVENING FOR 7 DAYS 04/07 completed Not Available Not Available Not Available clopidogrel 75 mg tablet 10/08 completed Not Available Not Available Not Available amlodipine [...] AFFECTED EAR EVERY DAY FOR 5 DAYS 10/08 completed Not Available Not Available Not Available [...] TABLET ON THE TONGUE EVERY 8 HOURS 10/08 completed Not Available Not Available Not Available gentamicin 0.1 % topical ointment APPLY TO THE AFFECTED AREA TWICE DAILY FOR 2 WEEKS 04/07 completed Not Available Not Available Not Available diazepam 5 mg tablet TAKE 1 TABLET BY MOUTH BEFORE PROCEDURE . MAY REPEAT 1 TIME 10/08 completed Not Available Not Available Not Available amoxicillin 875 mg-potassiu m clavulanate 125 mg tablet TAKE 1 TABLET EVERY MORNING AND 1 TABLET EVERY EVENING WITH MEALS FOR 7 DYAS 04/08 completed Not Available Not Available Not Available oxycodone 5 mg tablet TAKE 1 TABLET BY MOUTH EVERY 4 TO 8 HOURS NEEDED FOR PAIN 10/08 completed Not Available Not Available Not Available moxifloxaci n 0.5 % eye drops [...] No t Available Eliquis 5 mg tablet 10/08 completed Not Available Not Available Not Available Stimulant Laxative Plus 8.6 mg-50 mg tablet TAKE ONE OR TWO TABLETS BY MOUTH TWICE DAILY NEEDED FOR CONSTIPAT ION WHILE USING NARCOTICS 10/08 completed Not Available Not Available Not Available Repatha SureClick 140 mg/mL subcutaneou s pen injector INJECT 1ML SUBCUTANE OUS EVERY 2 WEEKS active Not Available Not Available No t Available Xyosted 75 mg/0.5 mL subcutaneou s auto-inject or INJECT 0.5 ML SUBCUTANE OUS EVERY WEEK active Not Available Not Available No t Available Dayvigo 10 mg tablet TAKE 1/2 TO 1 TABLET BY MOUTH EVERY NIGHT AT BEDTIME 10/08 completed Not Available Not Available Not Available Paxlovid 300 mg (150 mg x 2)-100 mg tablets in a dose pack TK 2 NIRMATREL VIR TS AND 1 RITONAVIR T TOGETHER PO BID FOR 5 DAYS 10/08 completed Not Available Not Available Not Available Vitals Date Recorded Body height Body mass index (BMI) Body weight Provider Name and Address Organization Details Last Updated DateTime 10/08/2024 182.88 cm 27.8 kg/m2 21498.44 g Tao flores [facility] 10/08/2024 10:11:25 Social History Question Answer Notes LastModified by Organizat ion Details LastModified Time Tobacco Smoking Status Never Smoker Zaheer Cheo laird [facility] 04/08/2022 10:05:49 What Is Your Level Of Alcohol Consumption? None Information not available 10/08/2024 What Is Your Level Of Caffeine Consumption? Moderate Information not available 10/08/2024 What Was The Date Of Your Most Recent Tobacco Screening? 10/08/2024 Information not available 10/08/2024 Do You Use Any Illicit Or Recreational Drugs? No Information not available 10/08/2024 Sex: Unknown Functional Status None recorded. Mental Status None recorded. Family History Nothing Reported. Medical History Condition Response Diabetes Y Other Bleeding Disorder High Blood Pressure Y Kidney Stones Y Heart Disease Y Cancer Lung Disease Y Depression Y Immunizations Vaccine Type Date Status Note Provider Nam e and Address Organization Details Recorded Time Influenza, adjuvanted, quadrivalent, PF 2 completed Brendon laird [facility] 10/06/2023 10:12:19 COVID-19, mRNA, LNP-S, bivalent, PF, 30 mcg/0.3 mL dose 2 completed Brendon laird [facility] 10/06/2023 10:12:19 Influenza, adjuvanted, quadrivalent, PF 3 completed Not Available [facility] 10/08/2024 10:11:53 Influenza, adjuvanted, trivalent, PF 4 completed Not Available [facility] 10/08/2024 10:11:53 Influenza, adjuvanted, trivalent, PF 9 completed Rajni Hoang null, [facility] 04/07/2023 10:02:45 Influenza, adjuvanted, trivalent, PF 7 completed Rajni Hoang null, [facility] 04/07/2023 10:02:45 Influenza, adjuvanted, trivalent, PF 8 completed Rajni Hoang null, [facility] 04/07/2023 10:02:45 zoster recombinant 0 completed Rajni Hoang null, [facility] 04/07/2023 10:02:45 zoster recombinant 9 completed Rajni Hoang null, [facility] 04/07/2023 10:02:45 Influenza, adjuvanted, quadrivalent, PF 0 completed Rajni Hoang null, [facility] 04/07/2023 10:02:45 Influenza, adjuvanted, quadrivalent, PF 1 completed [facility]ni Juareza null, [facility] 04/07/2023 10:02:45 COVID-19, mRNA, LNP-S, PF, 30 mcg/0.3 mL dose 1 completed Rajni Morleyoza null, [facility] 04/07/2023 10:02:45 COVID-19, mRNA, LNP-S, PF, 30 mcg/0.3 mL dose 1 completed Rajni Hoang null, [facility] 04/07/2023 10:02:45 COVID-19, mRNA, LNP-S, PF, 30 mcg/0.3 mL dose 1 completed Rajni Hoang null, [facility] 04/07/2023 10:02:45 COVID-19, mRNA, LNP-S, PF, 30 mcg/0.3 mL dose, irwin-sucrose 2 completed Rajni Morleyoza null, [facility] 04/07/2023 10:02:45 pneumococcal polysaccharide PPV23 2 completed Rajni Morleyoza null, [facility] 04/07/2023 10:02:45 Tdap 7 completed Rajni laird, [facility] 04/07/2023 10:02:45 Tdap 0 completed Rajni laird, [facility] 04/07/2023 10:02:45 Tdap 3 completed Rajni laird, [facility] 04/07/2023 10:02:45 Pneumococcal conjugate PCV 13 5 completed Rajni laird, [facility] 04/07/2023 10:02:45 yellow fever live 2 completed Rajni laird, [facility] 04/07/2023 10:02:45 zoster live 9 completed Rajni laird, [facility] 04/07/2023 10:02:45 Influenza, high-dose, trivalent, PF 6 completed Rajni laird, [facility] 04/07/2023 10:02:45 Influenza, high-dose, trivalent, PF 5 completed Rajni laird, [facility] 04/07/2023 10:02:45 Influenza, split virus, trivalent, preservative 9 completed Rajni laird, [facility] 04/07/2023 10:02:45 Influenza, split virus, trivalent, preservative 0 completed Rajni laird, [facility] 04/07/2023 10:02:45 Influenza, split virus, trivalent, preservative 3 completed Rajni Juareza eitan, [facility] 04/07/2023 10:02:45 Influenza, split virus, trivalent, preservative 8 completed Rajni laird, [facility] 04/07/2023 10:02:45 Influenza, split virus, trivalent, preservative 7 [facility] 10:02:45 Influenza, split virus, trivalent, preservative 2 [facility]23 10:02:45 Influenza, split virus, trivalent, preservative 6 [facility]2023 10:02:45 Hep A, adult 8 completed [facility] 04/07/2023 10:02:45 typhoid, ViCPs 8 completed [facility] 04/07/2023 10:02:45 Hep A-Hep B 2 completed [facility] 04/07/2023 10:02:45 Past Encounters Encounter ID Performer Location Encounter Start Date Encounter Closed Date Diagnosis/Indication Diagnosis SNOMED-CT Code Diagnosis ICD10 Code Diagnosis Note [id number] Koby Batista MD [facility] [address] [place] [address] 10/08/2024 10:10:57 10/13/2024 12:00:01 Testosterone level below reference range 186207163 R79.89 1. Low Testostero ne- testostero ne in good range- continue Xyosted 75 mg SC weekly- Follow-up in 12 months with Testostero ne Carcinoma of prostate 25 4457499 C61 2. Prostate cancer (HC)- pT2c - Bouton 3+4 = 7 - s/p RAL prostatect xavi in October 2014- PSA (< 0.04)- remains undetectab le- Follow-up in October 2025 with PSA Health Concerns Section Related Observation LastModified by Organization Detai ls LastModified Time None Recorded Concern Status LastModified by Organization Details LastModified Time None Recorded Payers Encounter Date Sequence Insurance Name Policy Number Policy Ramos Covered Member ID Ramos Member ID Guarantor Name 10/08/2024 1 MEDICA (MEDICARE REPLACEMENT/ ADVANTAGE - PPO) [id number] Chente Rubin [id number] Chente Rubin Notes Date Note Type Note Provider Name and Address Organization Details Recorded Time 10/08/2024 text/html 79 yo male with history of prostate cancer, [...] stem-cell inject for ED in October in [place]. He tried Oxybutynin ER 5 mg daily (no changed). He has tried Androgel 50 mg daily and 100 mg daily (still had low Testosterone).He is on Xyosted 75 mg SC weekly. Prostate cancer - pT2c No Mx - Bouton 3+4=7 - s/p RALP (10/25/14) - (Dr. Pulido) - negative margins - no recurrence to date. 09/19/20 - IPP and Coloplast male urethral sling placement ([facility] - Dr. Ashok Goins) 04/07/23 - He presents for follow-up on low testosterone and prostate cancer. He voids every 2-3 hours during the day and 1-3x/night. He notes occasional urine leakage after urination and with bending / standing. 10/06/23 - He presents for follow-up on low testosterone and Prostate cancer. He voids every 2-3 hours during the day and 1-3x/night. He notes occasional urinary incontinence. 10/08/24 - He presents for follow-up on low testosterone and Prostate cancer. He voids every 2-3 hours during the day and 1-2x/night. He still has some leakage with activity - uses 1-2 pads per day.He is scheduled for AVR and ascending aortic root replacement on 10/19/24.- PSA - <0.04 (09/28/24)- Testosterone - 889 (09/28/24)- Hgb - 15.3 (09/28/24) PSA - < 0.03 (04/19/16)- < 0.03 (10/08/16)- < 0.03 (04/09/17)- < 0.03 (10/27/17)- < 0.03 (08/07/18)- < 0.03 (02/15/19)- < 0.03 (11/08/20)- < 0.03 (09/17/21)- < 0.03 (02/18/22)- < 0.02 (02/24/23)- < 0.02 (10/01/23)- < 0.04 (09/28/24) Testosterone - 177 ng (08/07/18) - Free 4.96- 271 (07/14/19)- 584 (11/08/20)- 877 (09/17/21)- 666 (02/18/22)- 771 (08/21/22)- 715 (02/24/23)- 642 (10/01/23)- 889 (09/28/24) Hgb - 13.4 (05/13/19)- 12.7 (12/07/20)- 14.7 (09/17/21)- 14.5 (02/24/23)- 15.3 (09/28/24) CT scan (06/13/17) revealed 3 mm Left UVJ stone - no stones in either kidney Current patient location: {{[place]}} Current MD/ASHLEY location: {{[facility]}} HIPAA compliant platform used: {{ yes#}} Prior to conducting our telephone visit, the [...] and coordinate their care. Koby Batista MD [address] [place] [address],[facility] [address], [place], [address], [facility] 10/08/2024 10:44:00
--- OUTSIDE RECORDS SUMMARY | 2024-10-13 19:40 | XMS_ITS | Clinical Summary ---
Author Organization [facility] Address [address] [address] Phone Care Team Providers Care Glove Cuffer Name Role Phone Unavailable Primary Care Provider [...] 07/29/2017 04/02/2023 Overview (04/02/2023): Recently diagnosed at [facility] Paroxysmal atrial fibrillation 04/10/2017 0 04/02/2023 Thoracic [...] this topic Medical Devices Implanted Type Area Laundry Pricing Clerk Device Identifier Shelf Expiration Date Model / Serial / Lot Watchman Flx Closure Device N/A: Heart [id number] / NA / NA Description:1.5/3T Max Spatial Gradient: 2500 gauss/cm No coil restrictions Normal Operating Mode Max whole body CARLOS: 2W/kg; whole body 3.2W/kg Scan Duration: 2W/kg whole body average CARLOS for 60min of continuous RF (a sequence or [id number] series/scans without breaks) [facility] MRI Department 04/13/23 Insurance [employer] MEDICARE COST PART A&B
--- OUTSIDE RECORDS SUMMARY | 2024-10-13 19:40 | XMS_ITS | Clinical Summary ---
Author Organization [employer] Address [address] [facility], [place] [address] Phone Care Team Providers Care Erp Developer Name Role Phone Unavailable Primary Care Provider Unavailabl e Source Comments [place] [employer] is fully rolled out on [employer]. Last update 12/09/08.[employer] Allergies Active Allergy Reactions Criticality Noted Date [...] daily. 5 mL 1 2 11:04 AM TOOL GRINDER 05/21/20 Active moxifloxacin (VIGAMOX) 0.5 % ophthalmic solution Place 1 drop into LEFT eye 4 times daily. 3 mL 1 2 11:04 AM TOOL GRINDER 05/21/20 22 Active ketorolac (ACULAR) 0.5 % ophthalmic solution Place 1 drop into LEFT eye 4 times daily. 5 mL 1 2 11:04 AM TOOL GRINDER 05/21/20 22 Active Active Problems Problem Noted Date Diagnosed Date Myopia with presbyopia of left eye 06/20/2022 Assessment & Plan (06/20/2022 11:15 AM TOOL GRINDER): Refractive Error/Presbyopia - The results of the refraction were discussed with the patient and a new prescription for bifocal/progressive spectacles was dispensed Pseudophakia, left eye 05/29/2022 Assessment & Plan (08/19/2022 10:45 AM TOOL GRINDER): - 3 months s/p CE IOL of [...] Monitor Assessment & Plan (06/20/2022 11:15 AM TOOL GRINDER): One month s/p CE IOL of the left eye. IOP today slightly elevated to 28 in the left eye, which may be steroid response. - Discontinue remainder of postop drops - Return in 1-2 months for IOP check -- if IOP remains elevated, consider starting IOP lowering agent Assessment & Plan (05/29/2022 9:55 AM TOOL GRINDER): One week status post uncomplicated cataract surgery [...] on file Legal Sex Male 4:12 AM TOOL GRINDER Gender Identity Not on file Sexual Orientation Not on file Last Filed Vital Signs Vital Sign Reading Time Taken Comments Blood Pressure 126/91 05/21/2022 10:20 AM TOOL GRINDER Pulse 64 05/21/2022 10:20 AM TOOL GRINDER Temperature 36.3 C (97.3 F) 05/21/2022 9:45 AM TOOL GRINDER Respiratory Rate 16 05/21/2022 10:0 2 AM TOOL GRINDER Oxygen Saturation 97% 05/21/2022 10: 02 AM TOOL GRINDER Inhaled Oxygen Concentration - - Weight 94.7 kg (208 lb 12.8 oz) 05/21/2022 6:48 AM TOOL GRINDER Height 182.9 cm (6') 05/21/2022 6:48 AM TOOL GRINDER Body Mass Index 28.32 05/21/2022 6:48 AM TOOL GRINDER Plan of Treatment Health Maintenance Due Date Last Done Comments Dental Oral Exam 1945 Dental Prophylaxis 1945 Dental X-Ray: Bitewings 1945 Hepatitis C Screening 1945 Periodontal Maintenance 1961 Imm: HepB (2 of 3 - 19+ 3-dose series) 10/11/2011 09/13/2011, 08/30/2011, 08/23/2011 Osteoporosis Screening (Dexa Scan) 2012 Imm: Pneumonia 50 years and older (2 of 2 - PCV) 06/11/2013 06/11/2012 Imm: COVID-19 ( season) 2024 05/16/2022, 12/07/2021, 05/07/2021, Additional [...] this topic Medical Devices Implanted Type Area Medical Support Specialist Device Identifier Shelf Expiration Date Model / Serial / Lot Lens Intraocular 20.5 Diopter - [id number] Implanted:Qty: 1 on 05/21/2022 by Navin [facility] Lens Left: Eye [employer] 01/28/2026 [id number] / [id number] / Capsular Tension Ring,Amy [id number] Implanted:Qty: 1 on 05/21/2022 by Osvaldo Sparrow MD at [facility] Left: Eye [employer] 05/05/2026 [id number] / / CBLBJC Insurance MEDICARE [facility]
--- OUTSIDE RECORDS SUMMARY | 2024-10-13 19:40 | XMS_ITS | Referral Summary ---
Author Organization [facility] Address [address] [place] [address] Phone Care Team Providers Care Day Light Relief Operator Name Role Phone Unavailable Primary Care Provider Unavailabl e Source Comments [employer] is fully rolled out on [employer]. Last update 12/09/08.[employer] [facility] Allergies Active Allergy Reactions Criticality Noted [...] daily. 5 mL 1 2 11:04 AM WORK FORCE ADVISOR 05/21/20 Active moxifloxacin (VIGAMOX) 0.5 % ophthalmic solution Place 1 drop into LEFT eye 4 times daily. 3 mL 1 2 11:04 AM WORK FORCE ADVISOR 05/21/20 22 Active ketorolac (ACULAR) 0.5 % ophthalmic solution Place 1 drop into LEFT eye 4 times daily. 5 mL 1 2 11:04 AM WORK FORCE ADVISOR 05/21/20 22 Active Active Problems Problem Noted Date Diagnosed Date Myopia with presbyopia of left eye 06/20/2022 Assessment & Plan (06/20/2022 11:15 AM WORK FORCE ADVISOR): Refractive Error/Presbyopia - The results of the refraction were discussed with the patient and a new prescription for bifocal/progressive spectacles was dispensed Pseudophakia, left eye 05/29/2022 Assessment & Plan (08/19/2022 10:45 AM WORK FORCE ADVISOR): - 3 months s/p CE IOL of [...] Monitor Assessment & Plan (06/20/2022 11:15 AM WORK FORCE ADVISOR): One month s/p CE IOL of the left eye. IOP today slightly elevated to 28 in the left eye, which may be steroid response. - Discontinue remainder of postop drops - Return in 1-2 months for IOP check -- if IOP remains elevated, consider starting IOP lowering agent Assessment & Plan (05/29/2022 9:55 AM WORK FORCE ADVISOR): One week status post uncomplicated cataract surgery [...] on file Legal Sex Male 4:12 AM WORK FORCE ADVISOR Gender Identity Not on file Sexual Orientation Not on file Last Filed Vital Signs Vital Sign Reading Time Taken Comments Blood Pressure 126/91 05/21/2022 10:20 AM WORK FORCE ADVISOR Pulse 64 05/21/2022 10:20 AM WORK FORCE ADVISOR Temperature 36.3 C (97.3 F) 05/21/2022 9:45 AM WORK FORCE ADVISOR Respiratory Rate 16 05/21/2022 10:0 2 AM WORK FORCE ADVISOR Oxygen Saturation 97% 05/21/2022 10: 02 AM WORK FORCE ADVISOR Inhaled Oxygen Concentration - - Weight 94.7 kg (208 lb 12.8 oz) 05/21/2022 6:48 AM WORK FORCE ADVISOR Height 182.9 cm (6') 05/21/2022 6:48 AM WORK FORCE ADVISOR Body Mass Index 28.32 05/21/2022 6:48 AM WORK FORCE ADVISOR Plan of Treatment Not on file Medical Devices Implanted Type Area Wall Covering Contractor Device Identifier Shelf Expiration Date Model / Serial / Lot Lens Intraocular 20.5 Diopter - [id number] Implanted:Qty: 1 on 05/21/2022 by Navin Ramirez MD at [facility] Lens Left: Eye [employer] 01/28/2026 [id number] / [id number] / Capsular Tension Ring,Amy Mr-1420 Implanted:Qty: 1 on 05/21/2022 by Osvaldo Sparrow MD at [facility] Left: Eye [employer] 05/05/2026 [id number] / / CBLBJC Insurance MEDICARE MEDIC
--- OUTSIDE RECORDS SUMMARY | 2024-10-13 19:41 | XMS_ITS | Data Portability ---
[facility] Organization 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 Plan of Treatment Reminders Order Date Submit Date Provider Last Modified By Organization Details Last Modified Time Details Appointments None recorded. Lab PSA, total, serum or plasma [address], [address] [place] [address], [address], 5 10:58:30 testosteron e, total, serum [address] [facility], [address] [place] [address], [address], 5 10:58:21 hemoglobin (Hb), blood [address] [facility], [address] [place] [address], [address], 5 10:58:26 PSA, total, serum or plasma 2023 024 [email or web address] [facility], [address] [place], [address], 4 15:14:47 testosteron e, total, serum 2023 024 [email or web address] [facility], [address] [place], [address], 4 15:14:46 hemoglobin (Hb), blood 2023 [email or web address] [facility], [address] [place] [address], [address], 4 15:14:46 testosteron e, total, serum 2022 [email or web address] [facility], [address] [place] [address], [address], 3 12:29:25 PSA, total, serum or plasma 2022 023 [email or web address] [facility], [address] [place] [address], [address], 3 08:45:23 testosteron e, total, serum 2022 023 [email or web address] [address] [facility], [address] [place] [address], [address], 3 08:45:23 hemoglobin (Hb), blood 2022 023 [email or web address] [facility], [address] [place] [address], [address], 3 08:45:23 PSA, total, serum or plasma 2021 022 [email or web address] [facility], [address] [place] [address], [address], 2 08:48:27 testosteron e, total, serum 2021 [email or web address] [facility], [address] [place] [address], [address], 2 08:48:27 Referral None recorded. Procedures None recorded. Surgeries None recorded. Imaging None recorded. Medication Orders Xyosted 75 mg/0.5 mL subcutaneou s auto-inject or 2023 024 [id number], [address] [place], [place], [id number], 4 10:53:47 Xyosted 75 mg/0.5 mL subcutaneou s auto-inject or 2022 023 [id number], [address] [place], [place], [phone], 3 10:27:30 Xyosted 75 mg/0.5 mL subcutaneou s auto-inject or 2022 023 [facility], [address] [place], [place], [phone], 11:50:48 Xyosted 75 mg/0.5 mL subcutaneou s auto-inject or 2021 022 [id number], [address] [place], [place], [phone], 00:08:40 Patient TargetsNo targets recorded. Patient Instructions Encounter Date Encounter Id Patient Instructions Last Modified By Organization Details Last Modified Time 04/08/2022 [id number] Telephone - 10 minutes Not available 04/08/2022 11:04:02 10/07/2022 [id number] Telephone - 6 minutes Not available 10/07/2022 11:46:16 04/07/2023 [id number] Telephone - 7 minutes Not available 04/07/2023 10:27:29 10/06/2023 [id number] Telephone - 6 minutes Not available 10/06/2023 10:53:46 10/08/2024 [id number] Telephone - 11 minutes Not available 10/08/2024 10:43:42 Reason for Referral None Reported. Results Created Date Observation Date Name Description Value Unit Range Abnormal Flag Note LastModifiedBy Organization Detail LastModifiedTime 09/28/19 25 09/28/2024 HEMOG LOBIN hemoglobin 15.3 g/dL 13.2-1 7.1 normal Not Available [facility] [address] [facility], [place], [address], 09/28/2024 08:49:27 09/28/19 25 09/28/2024 TESTO STERO NE, TOTAL , MALES (ADUL T), IA testosterone , total, males (adult), ia 889 NG/dL 250-82 7 high Not Available [facility] [address] [facility], [place], [address], 09/28/2024 08:49:29 Result Notes None recorded. 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 Procedures Surgical History Date Name Laterality Status Provider Name and Address Organization Details Recorded Time 09/20/19 21 implantation of penile prosthesis completed Zaheer Grider [facility] 04/08/2022 10:07:35 09/20/19 21 insertion of single incision mid-urethral mini-sling completed Zaheer Grider [facility] 04/08/2022 10:08:14 10/26/19 15 prostatectomy completed Zaheer Cheo [facility] 04/08/2022 10:06:57 Imaging Results None recorded. Procedure Notes None recorded. Medical Equipment None Reported. Allergies Allergen ID Allergen Name Allergen Category Reaction Reaction Severity Criticality Documentation Date Start Date Code Code System Note Provider Name and Address Organization Details Recorded Time 031920 naproxen medicatio n Not available Not available Not available 12/23/20192014 7258 RxNorm Not Available Not Available Not Available 580204 Product containin g 3-hydroxy -3-methyl glutaryl- coenzyme A reductase inhibitor (product) medicatio n myalgias (muscle pain) Not available Not available 04/08/2022 82218 009 SNOMED Not Available Not Available Not [...] Updated DateTime 04/08/2022 182.88 cm 27.4 kg/m2 47353.66 g Zaheer Grider [facility] 04/08/2022 10:26:15 Date Recorded Body height Body mass index (BMI) Body weight Provider Name and Address Organization Details Last Updated DateTime 10/07/2022 182.88 cm 27.9 kg/m2 84453.03 rolf Rajni Hoang [facility] 10/07/2022 10:57:49 Date Recorded Body height Body mass index (BMI) Body weight Provider Name and Address Organization Details Last Updated DateTime 04/07/2023 182.88 cm 27.9 kg/m2 85508.03 rolf Rajni Hoang [facility] 04/07/2023 10:02:38 Date Recorded Body height Body mass index (BMI) Body weight Provider Name and Address Organization Details Last Updated DateTime 10/06/2023 182.88 cm 27.1 kg/m2 28705.47 g Brendon Diaz [facility] 10/06/2023 10:12:15 Date Recorded Body height Body mass index (BMI) Body weight Provider Name and Address Organization Details Last Updated DateTime 10/08/2024 182.88 cm 27.8 kg/m2 65982.44 g Tao Rodrigezrigal-Adriana flores [facility] 10/08/2024 10:11:25 Social History Question Answer Notes LastModified by Organizat ion Details LastModified Time Tobacco Smoking Status Never Smoker [facility] 04/08/2022 10:05:49 What Is Your Level Of [...] Bleeding Disorder Other High Blood Pressure Y Kidney Stones Y Cancer Depression Y Lung Disease Y Heart Disease Y Immunizations Vaccine Type Date Status Note Provider Nam e and Address Organization Details Recorded Time Influenza, adjuvanted, quadrivalent, PF 2 completed Brendon laird [facility] 10/06/2023 10:12:19 COVID-19, mRNA, LNP-S, bivalent, PF, 30 mcg/0.3 mL dose 2 completed Brendon laird [facility] 10/06/2023 10:12:19 Influenza, adjuvanted, quadrivalent, PF 3 completed Not Available [facility] 10/08/2024 10:11:53 Influenza, adjuvanted, trivalent, PF 4 completed Not Available [facility] 10/08/2024 10:11:53 Influenza, adjuvanted, trivalent, PF 9 completed Rajni laird [facility] 04/07/2023 10:02:45 Influenza, adjuvanted, trivalent, PF 7 completed Rajni Hoang null, [facility] 04/07/2023 10:02:45 Influenza, adjuvanted, trivalent, PF 8 completed Rajni Hoang null, [facility] 04/07/2023 10:02:45 zoster recombinant 0 completed Rajni Hoang null, [facility] 04/07/2023 10:02:45 zoster recombinant 9 completed Rajni Hoang null, [facility] 04/07/2023 10:02:45 Influenza, adjuvanted, quadrivalent, PF 0 completed Rajni Hoang null, [facility] 04/07/2023 10:02:45 Influenza, adjuvanted, quadrivalent, PF 1 completed [facility] Hoang null, [facility] 04/07/2023 10:02:45 COVID-19, mRNA, LNP-S, PF, 30 mcg/0.3 mL dose 1 completed Rajni Hoang null, [facility] 04/07/2023 10:02:45 COVID-19, mRNA, LNP-S, PF, 30 mcg/0.3 mL dose 1 completed Rajni Hoang null, [facility] 04/07/2023 10:02:45 COVID-19, mRNA, LNP-S, PF, 30 mcg/0.3 mL dose 1 completed Rajni Hoang null, [facility] 04/07/2023 10:02:45 COVID-19, mRNA, LNP-S, PF, 30 mcg/0.3 mL dose, irwin-sucrose 2 completed Rajni Hoang null, [facility] 04/07/2023 10:02:45 pneumococcal polysaccharide PPV23 2 completed Rajni Morleyoza null, [facility] 04/07/2023 10:02:45 Tdap 7 completed Rajni Morleyoza null, [facility] 04/07/2023 10:02:45 Tdap 0 completed Rajni Juareza eitan, [facility] 04/07/2023 10:02:45 Tdap 3 completed Rajni Juareza null, [facility] 04/07/2023 10:02:45 Pneumococcal conjugate PCV 13 5 completed Rajni Hoang [facility], [facility] 04/07/2023 10:02:45 yellow fever live 2 completed Rajni Juareza null, [facility] 04/07/2023 10:02:45 zoster live 9 completed Rajni Juareza null, [facility] 04/07/2023 10:02:45 Influenza, high-dose, trivalent, PF 6 completed Rajni Hoang null, [facility] 04/07/2023 10:02:45 Influenza, high-dose, trivalent, PF 5 completed Rajni Juareza null, [facility] 04/07/2023 10:02:45 Influenza, split virus, trivalent, preservative 9 completed [facility] 04/[facility]23 10:02:45 Influenza, split virus, trivalent, preservative 0 completed Rajnifabienne Morleyoza eitan, [facility] 04/07/2023 10:02:45 Influenza, split virus, trivalent, preservative 3 completed Rajni Hoang null, [facility] 04/07/2023 10:02:45 Influenza, split virus, trivalent, preservative 8 completed Rajni Hoang null, [facility] 04/07/2023 10:02:45 Influenza, split virus, trivalent, preservative 7 completed Rajni Juareza null, [facility] 04/07/2023 10:02:45 Influenza, split virus, trivalent, preservative 2 completed [facility] 04/07/2023 10:02:45 Influenza, split virus, trivalent, preservative 6 completed Rajni laird, [facility] 04/07/2023 10:02:45 Hep A, adult 8 completed [facility] 04/07/2023 10:02:45 typhoid, ViCPs 8 completed [facility] 04/07/2023 10:02:45 Hep A-Hep B 2 [facility] 04/07/2023 10:02:45 Past Encounters Encounter ID Performer Location Encounter Start Date Encounter Closed Date Diagnosis/Indication Diagnosis SNOMED-CT Code Diagnosis ICD10 Code Diagnosis Note [id number] [facility] [address] [place] [address] 04/08/2022 10:00:51 04/11/2022 15:05:20 Carcinoma of prostate 121373906 C61 2. Prostate cancer (HC)- pT2c - [place] 3+4 = 7 - s/p RAL prostatect xavi in October 2014- PSA remains undetectab le (< 0.03)- Follow-up in Mar 2023 with PSA Testostero ne level below reference range 526425125 R79.89 1. Low Testostero ne- testostero ne in good range- continue Xyosted 75 mg SC weekly- check Testostero ne in 6 months- need to monitor Hgb (annually) [id number] Koby Batista MD [facility] [address] [place] [address] 10/07/2022 10:57:06 10/11/2022 09:16:28 Testosterone level below reference range 076794029 R79.89 1. Low Testostero ne- testostero ne in good range- continue Xyosted 75 mg SC weekly- Follow -up in 6 months with Testostero ne and Hgb Carcinoma of prostate 25 7902892 C61 2. Prostate cancer (HC)- pT2c - [place] 3+4 = 7 - s/p RAL prostatect xavi in October 2014- PSA remains undetectab le (< 0.03)- Follow-up in Mar 2023 with PSA [id number] Koby Batista MD [address] [place] [address] 04/07/2023 10:02:01 04/17/2023 14:02:17 Testosterone level below reference range 442182028 R79.89 1. Low Testostero ne- testostero ne in good range- continue Xyosted 75 mg SC weekly- Follow -up in 6 months with Testostero ne Carcinoma of prostate 25 3001863 C61 2. Prostate cancer (HC)- pT2c - [place] 3+4 = 7 - s/p RAL prostatect xavi in October 2014- PSA remains undetectab le (< 0.03)- Follow-up in February 2024 with PSA [id number] Koby Batista MD [address] [place] [address] 10/06/2023 09:44:51 10/07/2023 09:57:47 Testosterone level below reference range 215110155 R79.89 1. Low Testostero ne- testostero ne in good range- continue Xyosted 75 mg SC weekly- Follow -up in 12 months with Testostero ne Carcinoma of prostate 25 4157006 C61 2. Prostate cancer (HC)- pT2c - [place] 3+4 = 7 - s/p RAL prostatect xavi in October 2014- PSA (< 0.02)- remains undetectab le- Follow-up in October 2024 with PSA [id number] Koby Batista MD [address] [place] [address] 10/08/2024 10:10:57 10/13/2024 12:00:01 Testosterone level below reference range 569409177 R79.89 1. Low Testostero ne- testostero ne in good range- continue Xyosted 75 mg SC weekly- Follow-up in 12 months with Testostero ne Carcinoma of prostate 25 9888271 C61 2. Prostate cancer (HC)- pT2c - [...] 1 MEDICA (MEDICARE REPLACEMENT/ ADVANTAGE - PPO) [id number] Chente Rubin [id number] Chente Rubin 10/07/2022 1 MEDICA (MEDICARE REPLACEMENT/ ADVANTAGE - PPO) [id number] Chente Sarabiaen [id number] Chente Sarabiaen 04/07/2023 1 MEDICA (MEDICARE REPLACEMENT/ ADVANTAGE - PPO) [id number] Chente Sarabiaen [id number] Chente Sarabiaen 10/06/2023 1 MEDICA (MEDICARE REPLACEMENT/ ADVANTAGE - PPO) [id number] Chente Sarabiaen [id number] Chente Sarabiaen 10/08/2024 1 MEDICA (MEDICARE REPLACEMENT/ ADVANTAGE - PPO) [id number] Chente Rubin [id number] Chente Rubin Notes Date Note Type Note Provider Name and Address Organization Details Recorded Time 04/08/2022 text/html 76 yo male with history of prostate cancer, low testosterone, and erectile dysfunction. His prostate cancer was treated with a robot-assisted laparoscopic prostatectomy by Dr. Pulido on October 25, 2014. He was staged as a pT2c No - ([place] 3+4 = 7) all surgical margins were [...] stem-cell inject for ED in October in [place]. He tried Oxybutynin ER 5 mg daily (no changed). He has tried Androgel 50 mg daily and 100 mg daily - still has low Testosterone.09/19/20 - IPP and Coloplast male urethral sling placement ([place] - Dr. Ashok Goins)10/08/21 - He presents [...] and coordinate their care. Koby Batista MD [address] [facility] [address], [place], [address], [facility] [place] [facility] 04/16/2022 23:09:44 10/07/2022 text/html 77 yo male with history of prostate cancer, low testosterone, and erectile dysfunction. His prostate cancer was treated with a robot-assisted laparoscopic prostatectomy by Dr. Pulido on October 25, 2014. He was staged as a pT2c No - ([place] 3+4 = 7) all surgical margins were [...] stem-cell inject for ED in October in [place]. He tried Oxybutynin ER 5 mg daily (no changed). He has tried Androgel 50 mg daily and 100 mg daily - still has low Testosterone. 09/19/20 - IPP and Coloplast male urethral sling placement ([place] - Dr. Ashok Goins) 04/08/22 - He [...] and coordinate their care. Koby Batista MD [address] [place] [address],[address], [place], [address], [facility] 10/07/2022 11:50:55 04/07/2023 text/html 77 yo male with history of prostate cancer, low testosterone, and erectile dysfunction. His prostate cancer was treated with a robot-assisted laparoscopic prostatectomy by Dr. Pulido on October 25, 2014. He was staged as a pT2c No - ([place] 3+4 = 7) all surgical margins were [...] stem-cell inject for ED in October in [place]. He tried Oxybutynin ER 5 mg daily (no changed). He has tried Androgel 50 mg daily and 100 mg daily - still has low Testosterone. Prostate cancer - pT2c No Mx - [place] 3+4=7 - s/p RALP (10/25/14) - (Dr. Pulido) - negative margins - no recurrance to date. 09/19/20 - IPP and Coloplast male urethral sling placement ([place] - Dr. Ashok Goins) 10/07/22 - He [...] and coordinate their care. Koby Batista MD [address] [place] [address],[address], [place], [address], [facility] [place] [facility] 04/07/2023 10:30:16 10/06/2023 text/html 78 yo [...] stem-cell inject for ED in October in [place]. He tried Oxybutynin ER 5 mg daily [...] IPP and Coloplast male urethral sling placement ([place] - Dr. Ashok Goins) 10/07/22 - He [...] and coordinate their care. Koby Batista MD [address] [place] [address],[address], [place], [address], [facility] 10/06/2023 10:54:07 10/08/2024 text/html 79 yo male with history [...] stem-cell inject for ED in October in [place]. He tried Oxybutynin ER 5 mg daily [...] IPP and Coloplast male urethral sling placement ([place] - Dr. Ashok Goins) 04/07/23 - He [...] stones in either kidney Current patient location: [facility] Current MD/[facility] [facility] HIPAA compliant platform used: {{ yes#}} Prior [...] and coordinate their care. Koby Batista MD [address] [place] [address],[address], [place], [address], [facility] 10/08/2024 10:44:00
[2024-10-13 19:45] VITALS: BP 173/62; PULSE 80; RESP 16; TEMP 36.2; O2SAT 95; BMI 28.6
--- NOTE | 2024-10-13 20:56 | CRLHL7_ITS ---
For Patients: As a result of the Cures Act, medical imaging exams and procedure reports are released immediately into your electronic medical record. You may view this report before your referring provider. If you have questions, please contact your health care provider. Indication: Left hip pain. Technique: AP view of the pelvis with AP and lateral views of the left hip. Comparison: None. Findings/Impression: No acute fracture, dislocation, or suspicious osseous lesion. Moderate to advanced left hip joint space narrowing. Mild right hip joint space narrowing. Degenerative changes of the bilateral sacroiliac joints and lower lumbar spine also noted. No suspicious soft tissue abnormality. Dictated by Bran Leyva MD @ 10/13/2024 10:05:35 PM (Electronically Signed)
--- NOTE | 2024-10-13 21:06 | ED_ITS ---
HPI - Back Pain/Injury General Date Seen: 10/13/24 Chief Complaint: Back Injury/Pain Stated Complaint: severe pain lower left sided back/groin Time Seen by Provider: 10/13/24 20:45 Source: patient Mode of arrival: ambulatory Limitations: no limitations History of Present Illness HPI Narrative: Patient is a 79-year-old male presenting to emergency department for live left low back pain. Does have a history of degenerative disc disease. States about a week ago he started having pain to his left low back that wraps around to the front of his leg and radiates down the medial aspect of the leg to the knee. Denies any testicular pain. Denies any gluteal pain, saddle anesthesia, urinary retention, urinary incontinence, fecal incontinence, fevers, chills. Has had pain like this before but usually the pain goes away after a couple days but this is not getting any better. States pain is worse when he is trying to walk. Denies any known injuries. No other concerns noted. Related Data Home Medications ?Medication ?Instructions ?Recorded ?Confirmed amlodipine 5 mg tablet 5 mg PO DAILY 07/10/22 10/13/24 eszopiclone 1 mg tablet 1 mg PO HS 07/10/22 10/13/24 evolocumab 140 mg/mL subcutaneous 140 mg subcut Q14D 07/10/22 10/13/24 pen injector (Jarod Rodriguez) aspirin 81 mg capsule 81 mg PO DAILY 10/12/22 10/13/24 celecoxib 100 mg capsule 100 mg PO BID PRN 07/17/23 10/13/24 omeprazole 40 mg capsule,delayed 40 mg PO DAILY 07/21/23 10/13/24 release betamethasone, augmented 0.05 % 1 applic topical 07/27/24 08/12/24 topical ointment clobetasol 0.05 % topical cream 1 applic topical 07/27/24 08/12/24 peg 400-propylene glycol 0.4 %-0.3 1 drp ophthalmic (eye) BID 10/07/24 10/13/24 % eye gel drops Previous Rx's ?Medication ?Instructions ?Recorded amiodarone 200 mg tablet 200 mg PO DAILY #30 tabs 07/24/24 cyclobenzaprine 10 mg tablet 10 mg PO QHS #20 tabs 10/07/24 Allergies Allergy/AdvReac Type Severity Reaction Status Date / Time latex Allergy Unknown Verified 10/13/24 19:44 atorvastatin Allergy Verified 10/13/24 19:44 lisinopril Allergy Verified 10/13/24 19:44 naproxen Allergy Nausea Verified 10/13/24 19:44 rosuvastatin Allergy Verified 10/13/24 19:44 Review of Systems Narrative: Pertinent systems reviewed and were negative unless stated in HPI PFSH PFS Medical History Health care directive on file ?Z78.9 - Other specified health status (ICD-10) Sarcoidosis ?D86.9 - Sarcoidosis, unspecified (ICD-10) Atrial fibrillation ?I48.91 - Unspecified atrial fibrillation (ICD-10) Chronic systolic CHF (congestive heart failure) ?I50.22 - Chronic systolic (congestive) heart failure (ICD-10) Prostate cancer ?C61 - Malignant neoplasm of prostate (ICD-10) Hypertension ?I10 - Essential (primary) hypertension (ICD-10) Pain of foot ?M79.673 - Pain in unspecified foot (ICD-10) Malaise ?R53.81 - Other malaise (ICD-10) Laceration of left side of forehead with complication ?S01.81XA - Laceration without foreign body of other part of head, initial encounter (ICD-10) Facial injury ?S09.93XA - Unspecified injury of face, initial encounter (ICD-10) 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) Chronic headache ?R51.9 - Headache, unspecified (ICD-10) ?G89.29 - Other chronic pain (ICD-10) Chronic daily headache ?R51.9 - Headache, unspecified (ICD-10) Atrial flutter with rapid ventricular response ?I48.92 - Unspecified atrial flutter (ICD-10) Atrial fibrillation with rapid ventricular response ?I48.91 - Unspecified atrial fibrillation (ICD-10) Methicillin resistant Staphylococcus aureus culture positive (03/31/19) ?Z22.322 - Carrier or suspected carrier of Methicillin resistant Staphylococcus aureus (ICD-10) Diverticulitis ?K57.92 - Diverticulitis of intestine, part unspecified, without perforation or abscess without bleeding (ICD-10) Surgical History Status post tendon repair (07/21/23) ?Z98.890 - Other specified postprocedural states (ICD-10) H/O prostatectomy (10/2014) ?Z90.79 - Acquired absence of other genital organ(s) (ICD-10) History of elbow surgery (01/19/04) ?Z98.890 - Other specified postprocedural states (ICD-10) Status post arthroscopy of left shoulder (03/02/03) ?Z98.890 - Other specified postprocedural states (ICD-10) S/P ankle joint replacement ?Z96.669 - Presence of unspecified artificial ankle joint (ICD-10) H/O elbow surgery (~09/2017) ?Z98.890 - Other specified postprocedural states (ICD-10) Social History Narrative: -Kristen What is your current living situation?: I presently have a place to live In the past 12 months, utilities in danger of being shut off: no In past 12 months, lack of transportation kept you from medical appts, meetings, work, or getting things needed for daily living: no In the past 12 mos, have been you worried that your food would run out before you had money to buy more?: never true In the past 12 mos, the food you bought just didn't last and you didn't have money to buy more?: never true Smoking Status: Never smoker Do you use any of these nicotine containing products: None Second hand tobacco smoke exposure: No How often do you have a drink containing alcohol: never AUDIT-C Alcohol total score: 0 Non-prescribed substance use: denies use Caffeine: Yes How often does anyone, including family, friends and others, physically hurt you : never How often does anyone, including family, friends and others, insult or talk down to you: never How often does anyone, including family, friends and others, threaten you with harm: never How often does anyone, including family, friends and others, scream or curse at you: never service: No Exam Narrative: Exam Narrative: Const: Well-nourished, Well-developed, in mild distress Eyes: PERRL, no conjunctival injection, and symmetrical lids HENT: Atraumatic external nose and ears. Moist mucous membranes. MSK:Extremities w/o deformity, Normal Active ROM, no midline spinal tenderness, mild tenderness to the left paraspinal low back. Skin: Warm, Dry. No rashes or lesions. Neuro: Normal Muscle tone, No focal neurological deficits. Psych: Awake, Alert, & Oriented x3. Appropriate mood and affect. Const: Vital Signs, click to edit/add: Vital Signs - 24 hr 10/13/24 19:45 Temperature 97.1 F L Pulse Rate [Pulse Oximeter] 80 Respiratory Rate 16 Blood Pressure [Ri t Upper Arm] 173/62 H Pulse Oximetry 95 Oxygen Delivery Me thod Room Air Course Vital Signs Vital signs: Initial Vital Signs Temperature 97.1 F L 10/13/24 19:45 Temperature Source Temporal Artery Scan 10/13/24 19:45 Pulse Rate 80 10/13/24 19:45 Respiratory Rate 16 10/13/24 19:45 Blood Pressure 173/62 H 10/13/24 19:45 Blood Pressure Mean 99 10/13/24 19:45 Pulse Oximetry 95 10/13/24 19:45 Oxygen Delivery Method Room Air 10/13/24 19:45 Vital Signs Temperature 97.1 F L 10/13/24 19:45 Pulse Rate 80 10/13/24 19:45 Respiratory Rate 16 10/13/24 19:45 Blood Pressure 173/62 H 10/13/24 19:45 Pulse Oximetry 95 10/13/24 19:45 Oxygen Delivery Method Room Air 10/13/24 19:45 Temperature 97.1 F L 10/13/24 19:45 Pulse Rate 80 10/13/24 19:45 Respiratory Rate 16 10/13/24 19:45 Blood Pressure 173/62 H 10/13/24 19:45 Pulse Oximetry 95 10/13/24 19:45 Oxygen Delivery Method Room Air 10/13/24 19:45 MDM - Back Pain/Injury MDM Narrative Medical decision making narrative: Patient is a 79-year-old male with paraspinal left low back pain. Has been taking Tylenol for pain. Has not been taking any NSAIDs because he is having a bypass surgery next week and is not want to do anything that may risk the surgery. Is not having any red flag symptoms for cauda equina or other emergent issues. I am not concerned about diskitis. Will do an x-ray of the hip to make sure this isn't related to the degenerative disease of the hip. X-ray reviewed by myself and the radiologist shows no acute concerning abnorma lities. I believe his symptoms are likely related to some type of impinged nerve. I considered starting him on some NSAIDs but he is post of open heart surgery next week and I would he to given medication check could accidentally cause kidney disease and thus preventing his surgery. Due to this I am comfortable giving him oxycodone to manage his pain via instymeds. I informed them it takes a oxycodone to do a lot of stretching to help with his symptoms. He states he understands. Imaging Data X-ray left hip: Radiologist's impression: No acute fracture, dislocation, or suspicious osseous lesion. Moderate to advanced left hip joint space narrowing. Mild right hip joint space narrowing. Degenerative changes of the bilateral sacroiliac joints and lower lumbar spine also noted. No suspicious soft tissue abnormality. Dictated by Bran Leyva MD @ 10/13/2024 10:05:35 PM Discharge Plan Discharge Clinical Impression: Lumbar radiculopathy Patient Disposition: Home, Self-Care Condition: Stable Instructions: Lumbar Radiculopathy (ED), Lower Back Exercises (ED) Additional Instructions: Continue take Tylenol. Use the oxycodone as needed for pain. Careful as this does increase her fall risk. When you take it sure not to get up too fast. Prescriptions: No Action peg 400-propylene glycol 0.4-0.3 % drops,gel 1 drp ophthalmic (eye) BID Rx Instructions: Apply 1 Drop to eye two times a day. cyclobenzaprine 10 mg tablet 10 mg PO QHS Qty: 20 1RF Repatha SureClick 140 mg/mL pen injector 140 mg subcut Q14D eszopiclone 1 mg tablet 1 mg PO HS amlodipine 5 mg tablet 5 mg PO DAILY aspirin 81 mg capsule 81 mg PO DAILY celecoxib 100 mg capsule 100 mg PO BID PRN omeprazole 40 mg capsule,delayed release(DR/EC) 40 mg PO DAILY amiodarone 200 mg tablet 200 mg PO DAILY Qty: 30 0RF clobetasol 0.05 % cream 1 applic topical betamethasone, augmented 0.05 % ointment 1 applic topical Follow Up/Referrals: Adrien Hernandez MD [Primary Care Provider] - Stand Alone Forms: [employer] Info Instructions
--- OUTSIDE RECORDS SUMMARY | 2024-10-13 21:18 | XMS_ITS | Clinical Summary ---
Author Organization [facility] Address [address] [address] Phone Care Team Providers Care Stone Rigger Name Role Phone Unavailable Primary Care Provider [...] 07/29/2017 04/02/2023 Overview (04/02/2023): Recently diagnosed at [place] Paroxysmal atrial fibrillation 04/10/2017 0 04/02/2023 Thoracic [...] this topic Medical Devices Implanted Type Area Materials And Corrosion Engineer Device Identifier Shelf Expiration Date Model / Serial / Lot Watchman Flx Closure Device N/A: Heart [id number] / NA / NA Description:1.5/3T Max Spatial Gradient: 2500 gauss/cm No coil restrictions Normal Operating Mode Max whole body CARLOS: 2W/kg; whole body 3.2W/kg Scan Duration: 2W/kg whole body average CARLOS for 60min of continuous RF (a sequence or [id number] series/scans without breaks) [facility] MRI Department 04/13/23 Insurance [employer] MEDICARE COST PART A&B
--- OUTSIDE RECORDS SUMMARY | 2024-10-13 21:18 | XMS_ITS | Data Portability ---
Author Organization [facility] [place], [facility] Address [address] [address] Assessment No assessment recorded. Plan of Treatment [...] By Organization Details Last Modified Time 08/19/2018 [id number] knee arthritis: care instructions [email or web address] Not available 08/19/2018 13:50:30 shoulder pain: care instructions [email or web address] Not available 08/19/2018 13:51:25 Reason for Referral [...] Hyperthyroidism N Hernia N Head Trauma/Injury N Hypothyroidism N Blood Clots N COPD N Depression N Lung Disease N Pacemaker N Anxiety Disorder N Arthritis Y Cancer N Stroke N Leg or Foot Ulcers N Neck Injury N High Cholesterol N Liver Disease N Rheumatoid Arthritis N Fibromyalgia N Headaches N Kidney Disease N Heart Problems N Migraines N Thyroid Problems N Anemia N Multiple Sclerosis N Tendon Tear N Ulcers N Heart Attack (IN) N Diabetes N Bleeding Disorder N Seizures/Epilepsy [...] SNOMED-CT Code Diagnosis ICD10 Code Diagnosis Note [id number] [facility] [address] [place]SE[place] [address] 08/19/2018 11:55:17 08/24/2018 09:58:08 Osteoarthritis of knee 643209761 M17.0 Shoulder pain 69905561 M 25.519 Health Concerns Section Related Observation LastModified by Organization Detai ls LastModified Time None Recorded Concern Status LastModified by Organization Details LastModified Time None Recorded Advance Directives Directive None Recorded Payers Encounter Date Sequence Insurance Name Policy Number Policy Ramos Covered Member ID Ramos Member ID Guarantor Name 08/19/2018 1 MEDICA CHOICE [facility] - CHOICE PLUS (POS) [id number] Chente Rubin [id number] Chente Rubin 08/19/2018 2 MEDICARE [place]: [place] Chente Rubin [id number] Chente Rubin Notes Date Note Type Note Provider Name and Address Organization Details Recorded Time 08/19/2018 text/html See Dictated NoteReported bypatient.Notes:SE E DICTATED NOTES Not Available [facility] 08/24/2018 09:19:31
--- OUTSIDE RECORDS SUMMARY | 2024-10-13 21:18 | XMS_ITS | Referral Summary ---
Author Organization [facility] Address [facility] [facility] [place] [place] [address] Phone Care Team Providers Care Registered Veterinary Technician Name Role Phone Unavailable Primary Care Provider Unavailabl e Source Comments Valencell is fully rolled out on Ziebel. Last update 12/09/08.[facility] Allergies Active Allergy Reactions Criticality Noted Date [...] daily. 5 mL 1 2 11:04 AM PLANT GUIDE 05/21/20 Active moxifloxacin (VIGAMOX) 0.5 % ophthalmic solution Place 1 drop into LEFT eye 4 times daily. 3 mL 1 2 11:04 AM PLANT GUIDE 05/21/20 22 Active ketorolac (ACULAR) 0.5 % ophthalmic solution Place 1 drop into LEFT eye 4 times daily. 5 mL 1 2 11:04 AM PLANT GUIDE 05/21/20 22 Active Active Problems Problem Noted Date Diagnosed Date Myopia with presbyopia of left eye 06/20/2022 Assessment & Plan (06/20/2022 11:15 AM PLANT GUIDE): Refractive Error/Presbyopia - The results of the refraction were discussed with the patient and a new prescription for bifocal/progressive spectacles was dispensed Pseudophakia, left eye 05/29/2022 Assessment & Plan (08/19/2022 10:45 AM PLANT GUIDE): - 3 months s/p CE IOL of [...] Monitor Assessment & Plan (06/20/2022 11:15 AM PLANT GUIDE): One month s/p CE IOL of the left eye. IOP today slightly elevated to 28 in the left eye, which may be steroid response. - Discontinue remainder of postop drops - Return in 1-2 months for IOP check -- if IOP remains elevated, consider starting IOP lowering agent Assessment & Plan (05/29/2022 9:55 AM PLANT GUIDE): One week status post uncomplicated cataract surgery [...] on file Legal Sex Male 4:12 AM PLANT GUIDE Gender Identity Not on file Sexual Orientation Not on file Last Filed Vital Signs Vital Sign Reading Time Taken Comments Blood Pressure 126/91 05/21/2022 10:20 AM PLANT GUIDE Pulse 64 05/21/2022 10:20 AM PLANT GUIDE Temperature 36.3 C (97.3 F) 05/21/2022 9:45 AM PLANT GUIDE Respiratory Rate 16 05/21/2022 10:0 2 AM PLANT GUIDE Oxygen Saturation 97% 05/21/2022 10: 02 AM PLANT GUIDE Inhaled Oxygen Concentration - - Weight 94.7 kg (208 lb 12.8 oz) 05/21/2022 6:48 AM PLANT GUIDE Height 182.9 cm (6') 05/21/2022 6:48 AM PLANT GUIDE Body Mass Index 28.32 05/21/2022 6:48 AM PLANT GUIDE Plan of Treatment Not on file Medical Devices Implanted Type Area Composition Instructor Device Identifier Shelf Expiration Date Model / Serial / Lot Lens Intraocular 20.5 Diopter - [id number] Implanted:Qty: 1 on 05/21/2022 by Navin Ramirez MD at [facility] Lens Left: Eye [employer] 01/28/2026 [id number] / [id number] / Capsular Tension Ring,Amy [id number] Implanted:Qty: 1 on 05/21/2022 by Osvaldo Sparrow MD at [facility] Left: Eye [employer] 05/05/2026 [id number] / / CBLBJC Insurance MEDICARE MEDIC
--- OUTSIDE RECORDS SUMMARY | 2024-10-13 21:18 | XMS_ITS | Clinical Summary ---
Author Organization [facility] Address [address] [place] [address] Care Team Providers Care Radar Repairer Name Role Phone Adrien Hernandez MD Primary Care Provider [phone] Allergies Active Allergy Reactions Criticality Noted Date [...] on file Legal Sex Male 4:50 AM COLUMNIST Gender Identity Not on file Sexual Orientation [...] this topic Medical Devices Implanted Type Area Instruction Assistant Principal Device Identifier Shelf Expiration Date Model / Serial / Lot Graft Bone Infuse Bmp [id number] Implanted:Qt y: 1 on 04/28/2017 by Bonnie Child MD at [facility] Bone/Tissue /Biologic Right: Ankle [employer] 09/03/2018 [id number] / [id number] / [id number] Graft Fascia Sepideh Medium - [id number] Implanted:Qt y: 1 on 09/19/2021 by Dianna Charlton MD at [facility] Bone/Tissue /Biologic Left: Thumb [employer] 03/26/2024 [id number] / [id number] / Graft Bone Head Femoral 44mm [id number] - [id number] Implanted:Qt y: 1 on 11/11/2022 by Bonnie Child MD at [facility] Bone/Tissue /Biologic Right: Ankle [employer] 05/04/2026 [id number] / [id number] / Imp Scr Arthrex Blue Locking 3.5x18mm Ar-8935l-18 Implanted:Qt y: 3 on 02/03/2017 by Bonnie Child MD at [facility] Metallic Hardware/An chor Left: Foot ARTHREX AR-8935L- 18 / / AUTOCLAVE D FEBRUARY 03 2017 LOAD 42/03 Imp Scr Arthrex Can 4.0x20mm Ar-8940-20 Implanted:Qt y: 1 on 02/03/2017 by Bonnie Child MD at [facility] Metallic Hardware/An chor Left: Foot ARTHREX AR-8940-2 0 / / AUTOCLAVE D FEBRUARY 03 2017 LOAD 42/03 Imp Plate Arthrex Lapidus [id number] Implanted:Qt y: 1 on 02/03/2017 by Bonnie Child MD at [facility] Metallic Hardware/An chor Left: Foot ARTHREX AR-8941 / / AUTOCLAVE D FEBRUARY 03 2017 LOAD 42/03 Imp Staple Mmi Easyclip Si Forefoot [id number] - [id number] Implanted:Qt y: 1 on 09/19/2021 by Dianna Charlton MD at [facility] Metallic Hardware/An chor Left: Thumb [employer] 07/06/2025 JMW79-07- 13 / / [id number] Imp Staple Mmi Easyclip Si Forefoot [id number] Ujb38-10-56 - [id number] Implanted:Qt y: 1 on 09/19/2021 by Dianna Charlton MD at [facility] Metallic Hardware/An chor Left: Thumb [employer] 04/05/2025 ZFI52-17- 13 / / [id number] Nail 12mm 150mm Ankl Rt T2 Im Lck Ti Strl Arthds - [id number] Implanted:Qt y: 1 on 11/11/2022 by Bonnie Child MD at [facility] Metallic Hardware/An chor Right: Ankle [employer] [id number] 02/03/2027 9046-8140 S / / [id number] Imp Scr Strk Lock 5.0x40mm Ft 1896-5040s - [id number] Implanted:Qt y: 1 on 11/11/2022 by Bonnie Child MD at [facility] Metallic Hardware/An chor Right: Ankle [employer] [id number] 05/06/2027 4510-0670 S / / [id number] Imp Scr Strk Lock 5.0x40mm Ft 1896-5040s - [id number] Implanted:Qt y: 1 on 11/11/2022 by Bonnie Child MD at [facility] Metallic Hardware/An chor Right: Ankle [employer] [id number] 02/03/2027 3656-6821 S / / [id number] Imp Scr Strk Lock 5.0x32.5mm Ft 1896-5032s - [id number] Implanted:Qt y: 1 on 11/11/2022 by Bonnie Child MD at [facility] Metallic Hardware/An chor Right: Ankle [employer] [id number] 06/05/2027 0293-0511 S / / [id number] Imp Scr Strk Lock 5.0x85mm Ft 1896-5085s - [id number] Implanted:Qt y: 1 on 11/11/2022 by Bonnie Child MD at [facility] Metallic Hardware/An chor Right: Ankle [employer] [id number] 03/06/2027 8622-8004 S / / [id number] Imp End Cap Strk T2 Ft Spnial Scr 1826-0003s - [id number] Implanted:Qt y: 1 on 11/11/2022 by Bonnie Child MD at [facility] Metallic Hardware/An chor Right: Ankle [employer] [id number] 03/06/202718257081-1462 S / / [id number] Imp Insert Tornier Tibial Ankle Size 3x9mm Lt [id number] Implanted:Qt y: 1 on 02/03/2017 by Bonnie Child MD at [facility] Total Joint Component/I nsert Left: Ankle [employer] 05/03/2020 NVS834 / [id number] / Imp Insert Tornier Tibial Ankle Base Size 3 [id number] Implanted:Qt y: 1 on 02/03/2017 by Bonnie Child MD at [facility] Total Joint Component/I nsert Left: Ankle [employer] 02/08/2021 JKJ899 / [id number] / Imp Comp Tornier Talar Ankle Size 3 Lt [id number] Implanted:Qt y: 1 on 02/03/2017 by Bonnie Child MD at [facility] Total Joint Component/I nsert Left: Ankle [employer] 09/03/2020 FWY441 / [id number] / Imp Wire Nitin 0.045x4 - . Implanted:Qt y: 2 on 09/19/2021 by Dianna Charlton MD at [facility] Wire Left: Thumb G SOURCE 78.202 / 78.202 / [id number] Imp Wire Nitin 0.062x4 - . Implanted:Qt y: 2 on 09/19/2021 by Dianna Charlton MD at [facility] Wire Left: Thumb G SOURCE 78.203 / 78.203 / [id number] Bme Elite [id number] One Nitinol Implant For Use With Dk-300 Drill Bit Kit Implanted:Qt y: 1 on 02/03/2017 by Bonnie Child MD at [facility] Left: Foot 06/05/2021 [id number] / / Graft Bone Infuse Bmp Sm [id number] Implanted:Qt y: 1 on 04/24/2020 by Bonnie Child MD at [facility] Right: Ankle [employer] 03/06/2022 [id number] / / [id number] Graft Bone Infuse Bmp Lg [id number] - [id number] Implanted:Qt y: 1 on 11/11/2022 by Bonnie Child MD at [facility] Right: Ankle [employer] 07/07/2024 [id number] / / [id number] T2 3mm X 285mm K-Wire Implanted:Qt y: 1 on 11/11/2022 by Bonnie Child MD at [facility] Right: Ankle [id number] / / Explanted Type Area Instruction Assistant Principal Device Identifier Shelf Expiration Date Model / Serial / Lot Imp Insert Tornier Tibial Ankle Base Size 3 [id number] Implanted:Qty: 1 on 04/28/2017 by Bonnie Child MD at [facility] Explanted:Qty: 1 on 04/24/2020 by Bonnie Child MD at [facility] Total Joint Component /Insert Right: Ankle [employer] 02/14/2021 [id number] / [id number] / Imp Insert Tornier Tibial Ankle Size 3x11mm Rt [id number] Implanted:Qty: 1 on 04/28/2017 by Bonnie Child MD at [facility] Explanted:Qty: 1 on 04/24/2020 by Bonnie Child MD at [facility] Total Joint Component /Insert Right: Ankle [employer] 07/06/2019 WGL468 / [id number] / Agility Total Ankle Components X3 (Discarded) Explanted:Qty: 1 on 04/28/2017 by Bonnie Child MD at [facility] Right: Ankle Kimberly Talaris Xt Size 3 Right Talar Part Short Peg Implanted:Qty: 1 on 04/28/2017 by Bonnie Child MD at [facility] Explanted:Qty: 1 on 04/24/2020 by Bonnie Child MD at [facility] Right: Ankle 04/17/2020 UQU591 / [id number] / Imp Tibial Tray, Xl, Size 3 Implanted:Qty: 1 on 04/24/2020 by Bonnie Child MD at [facility] Explanted:Qty: 1 on 11/11/2022 by Bonnie Child MD at [facility] Right: Ankle [employer] 03/11/2023 [id number] / / [id number] Kimberly Talaris Tibial Insert Size 3 Right Implanted:Qty: 1 on 04/24/2020 by Bonnie Child MD at [facility] Explanted:Qty: 1 on 11/11/2022 by Bonnie Child MD at [facility] Right: Ankle [employer] 06/22/2020 TYW120 / [id number] / Imp Kimberly Talaris Xt Talar Part Short Peg Size 3 Right Implanted:Qty: 1 on 04/24/2020 by Bonnie Child MD at [facility] Explanted:Qty: 1 on 11/11/2022 by Bonnie Child MD at [facility] Right: Ankle [employer] 06/14/2021 [id number] / [id number] / Procedures Procedure Name Priority Date/Time Associated [...] BEAKER POCT Final Re sult LABORATORY POC [facility] [address], [address] [place] [address], [facility] [phone] from Last 3 Months or Most Recently Relevant to Health Maintenance Insurance MEDICARE [employer] Advance Directives For more information, please contact: [phone] * Full Code (Latest Code Status on [...] 4:08 PM 02/05/2017 3:35 PM Care Teams Radar Repairer Relationship Specialty Start Date End Date Adrien Hernandez MD [address] [place] [address] PCP - General 01/06/17
--- OUTSIDE RECORDS SUMMARY | 2024-10-13 21:18 | XMS_ITS | Clinical Summary ---
Author Organization [facility] Address [address], [place] [address] Care Team Providers Care Machine Operator Slitter Technician Name Role Phone Adrien Hernandez MD Primary Care Provider [phone] Source Comments You are receiving this document [...] for each transition of care or referral. echoecho Allergies No known active allergies Medications * [...] CARE MEDICA MEDICA PRIME SOLUTION Care Teams Machine Operator Slitter Technician Relationship Specialty Start Date End Date Adrien Hernandez MD [address] [place] [address] PCP - General Family Practice 03/04/18
--- OUTSIDE RECORDS SUMMARY | 2024-10-13 21:19 | XMS_ITS | Clinical Summary ---
Author Organization [employer] [facility] Address [address] [place] [address] Care Team Providers Care Electric Tape Slitter Name Role Phone Adrien Hernandez MD Primary Care Provider [phone] Allergies Active Allergy Reactions Criticality Noted Date Comments Atorvastatin Myalgia 09/18/2015 Muscle pains with atorvastatin Rosuvastatin Nausea Only 11/09/2015 Statin intolerance. Lisinopril Cough 11/09/2015 Naproxen Rash,Nausea Only 08/12/2024 Medications acetaminophen (TYLENOL EXTRA STRENGTH) 500 mg [...] WEEKS OFF. REPEAT NEEDED. 05/10/20 24 Active amiodarone (CORDARONE) 200 mg tabletIndications :Atrial fibrillation, unspecified type (HC) Take 1 Tablet (200 mg) by mouth two times daily. Take 200mg twice a day until 08/23/2024 THEN it to 200mg once a day starting on 08/24 180 Tablet 08/16/19 25 Active apixaban (Eliquis) 5 mg tabletIndications :Atrial fibrillation, unspecified type (HC) Take 1 Tablet (5 mg) by mouth two times daily. ONLY START 1 week prior to ablation and 1 month following ablation 74 Tablet 08/19/19 25 025 Discontin ued(*Maddie ent states no longer taking) Active Problems Patient Care Coordination No te Formatting of this note migh t be different from the original. HF/Structural/Prevention Research Eligibility Review Date: 06/22/19 Upcoming Visit Location: [facility] Age: 74 y.o. 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 [address] [facility] [address] [place] [address] Ti Goodman MD Questions (Post surgery follow up ) 10/04/2024 3:30 PM CDT Office Visit [facility] [address] [place] [address] Adrien Hernandez MD Pre-Op Exam (Arotic valve replacement [facility] with on 10/19) 10/04/2024 10:30 AM CDT Phone Office Visit [facility] [address] [place] [address] Gabriel Antony, ISELA Education (Pre Open Heart Surgery Education ) 10/04/2024 Travel 09/29/2024 Travel 09/27/2024 11:15 AM CDT Orders Only [facility] [address] [place] [address] Lab, [place] Lab 09/27/2024 Travel 09/24/[address] [facility] [address] [place] [address] Adrien Hernandez MD Error-please disregard 09/21/2024 1:30 PM CDT Office Visit [facility] [address] [place] [phone] Geraldo Rhodes MD CV General Cardiology Est (FOLLOW UP PER LIANA//PCP:Adrien Hernandez MD/) 09/20/2024 Travel 09/16/2024 9:00 AM CDT Office Visit [facility] [address] [place] [address] Ti Goodman MD CV Electrophysiology Est (Pt states he saw Dr Pulliam was recommended open heart suregery pt would like to discuss afib treatment plan) 09/16/2024 Travel 09/14/2024 10:00 AM CDT Office Visit [facility] [address] [place] [address] Koby Navarro MD CV General Cardiology New (Review recent ECHO, pt states he is doing ok, c/o fatigue. Feels he is having side effects from amiodarone. ) 09/13/2024 Travel 09/09/2024 8:00 AM GEOGRAPHY HEAD Ancillary Procedure [facility] [address] [facility] [place] [address] 09/09/2024 Travel 08/26/[address] [facility] [address] [place] [phone] Ti Goodman MD Appointment Request 08/18/2024 Orders Only [facility] Scanner 1 scan: (1-Ord) KIRSTEN SCOTT BX, 08/18/2024 08/16/[address] [facility] [address] [place] [phone] Koby Navarro MD Questions 08/14/[address] [facility] [address] [place] [phone] Ti Goodman MD Atrial Fibrillation 08/12/[address] [facility] [address] [place] [phone] Gabriel Antony, RN Follow Up 08/11/[address] [facility] [address] [place] [phone] Cardi[facility] [place] Appointment 08/11/[address] [facility] [address] [place] [phone] Koby Navarro MD Appointment; Questions 08/05/2024 4:00 PM GEOGRAPHY HEAD Office Visit [facility] [address] [facility] [address] [place] [address] Ti Goodman MD CV General Cardiology Est (2 recent cardioversion, not feeling well on amiodarone. ) 08/05/2024 Travel 08/04/[address] [facility] [address] [place] [phone] Ti Goodman MD Care Coordination 07/30/[address] [facility] [address] [place] [phone] Ti Goodman MD Atrial Fibrillation 07/27/2024 Orders Only [facility] Scanner 1 scan: (1-Ord) [facility] 2V, 07/27/2024 07/27/2024 Telephone [facility] [address] [facility] [address] [place] [phone] Ti Goodman MD Concerns from Last 3 Months Immunizations Immunization Administration Dates Next Due AMB INFLUENZA IIV3 [...] on file Legal Sex Male 5:43 AM GEOGRAPHY HEAD Gender Identity Not on file Sexual Orientation Not on file Occupation Industry Job Start Date Job End Date [employer] Not on file Not on file Not on file Obstetrics History Last Filed Vital Signs Vital Sign Reading Time Taken Comments Blood Pressure 135/81 10/04/2024 3:29 PM CDT Pulse 75 10/04/2024 3:29 PM CDT Temperature 36.2 C (97.2 F) 06/08/2024 2:50 PM GEOGRAPHY HEAD Respiratory Rate 18 10/30/2023 4:31 PM CDT Oxygen Saturation 97% 10/04/2024 3:29 PM CDT Inhaled Oxygen Concentration - - Weight 95.9 kg (211 lb 6.4 oz) 10/04/2024 3:29 P M CDT Height 175.7 cm (5' 9.17) 10/04/2024 3:29 PM CD T Body Mass Index 31.06 10/04/2024 3:29 PM CDT Plan of Treatment Upcoming Encounters Date Type Department Care Team (Late st Contact Info) Description 10/18/2024 1:30 PM CDT Orders Only [facility] [address] [place] [address] [place], [place] 10/19/2024 1:07 PM CDT Hospital Encounter [facility] [address] [place] [address] Geraldo Rhodes MD [address] [address] 10/19/2024 1:07 PM CDT - 10/19/2024 7:54 PM CDT Surgery [facility] [address] [place] [address] Geraldo Rhodes MD [address] [address] REPLACEMENT AORTIC VALVE W/PABLO, ASCENDING AORTIC ANEURYSM REPAIR, POSSIBLE MADAI-STERNOTOMY 10/25/2024 2:15 PM CDT Office Visit [facility] [address] [place] [address] Adrien Hernandez MD [address] [place] [address] 11/16/2024 1:30 PM CDT Office Visit [facility] Gabe [facility] [address] [address] Romelia Ruelas [place] [address] [address] Scheduled Procedures Name Priority Associated Diagnoses Date/Ti me REPLACEMENT AORTIC VALVE ascending aortic aneurysm 10/19/2024 1:07 PM CDT REPAIR ASCENDING AORTIC ANEURYSM ascending aortic aneurysm 10/19/2024 1:07 PM CDT MADAI-STERNOTOMY AORTIC VALVE REPLACEMENT ascending aortic aneurysm 10/19/2024 1:07 PM CDT Health Maintenance Due Date Last [...] wt on same day) for age 18+ 10/04/2025 10/04/2024, 09/16/2024, 09/14/2024, Additional history exists Tetanus booster 01/15/2030 01/16/2020, 02/04, 10/31/2006, Additional history exists Hepatitis C screening for ag e 18-79 Completed 05/02/2015 Pneumococcal series for age 50+ Completed 06/26/2015, 06/26/2015, 06/11/2012 Zoster (shingles) series for age 50+ Completed 08/03/2019, 05/24/2019, 08/02/2008 Tdap Completed 01/16/2020, 02/04, 10/31/2006 Influenza Vaccine Completed 06/15/2024, , 05/16/2022, Additional history exists Medical Devices Implanted Type Area Furnace And Wash Equipment Operator Device Identifier Shelf Expiration Date Model / Serial / Lot Amnio Fix 2.0x12.0cm Implanted:Qty: 1 on 10/25/2014 at [facility] [id number] / / [id number] Description:AMNIO FIX 2.0X12 .0CM Procedures Procedure Name Priority Date/Time Associated Diagnosis Comments EKG 12 LEAD Routine 09/16/2024 8:57 AM CDT Paroxysmal atrial fibrillation (HC) ECHO TTE COMPLETE WO CONTRAST Routine 09/09/2024 8:48 AM GEOGRAPHY HEAD Aortic dilatation Other heart disorders in diseases classified elsewhere SCAN-OPERATIVE/PRO CEDURE REPORT 08/18/2024 12:00 AM GEOGRAPHY HEAD EKG 12 LEAD Routine 08/05/2024 4:02 PM GEOGRAPHY HEAD Paroxysmal atrial fibrillation (HC) SCAN-RADIOLOGY REPORT 07/27/2024 12:00 AM GEOGRAPHY HEAD ANTI HCV Routine 05/02/2015 7:09 AM CDT Need for hepatitis C screening test from Last 3 Months or Most Recently Relevant to Health Maintenance Results * EKG 12 LEAD (09/16/2024 8:57 AM CDT) Only the most recent of2 resultswithin the time period is included. Interpretation Normal sinus rhythm Normal ECG When compared with ECG of 05-Aug-2024 16:02, No significant change was found Ventricular Rate 71 BPM Atrial Rate 71 BPM P-R Interval 186 ms QRS Duration 92 ms QT 402 ms QTc 436 ms P [place] 69 degrees R [place] 43 degrees T [place] 18 degrees 09/16/2024 8:57 AM CDT 09/16/2024 5:25 PM CDT us Ti Goodman MD EKG ORD Final Resul t * ECHO TTE COMPLETE WO CONTRAST (09/09/2024 8:48 AM GEOGRAPHY HEAD) AORTIC VALVE MEAN PG 46 mmHg EJECTION FRACTION 69 % PEAK TR VELOCITY 3.0 m/s LVEDD 4.1 cm EJECTION FRACTION 65 - 70% Anatomical Region Laterality Modality Ultrasound 09/09/2024 8:04 AM GEOGRAPHY HEAD Narrative 09/09/2024 9:03 AM GEOGRAPHY HEAD ECHOCARDIOGRAM CHENTE RICH : 1945 79 years Study Date: 09/09/2024 8:04:21 AM Gender: M BP: 144/74 mmHg Height: 183.00 cm BSA: 2.18 m Weight: 96.00 kg Tech: JUSTIN Referring MD: JAMAR SCHWARTZ Site: [facility] Reading Location: Mobile OP Patient Location: Outpatient. Procedure: 2D, Color Doppler and Spectral Doppler. Indication for study: Aortic dilatation; Other heart disorders in diseases classified elsewhere Cardiac Rhythm: Regular.Study quality: Fair. Final Impressions: 1. Normal LV size, moderately increased wall thickness, normal global systolic function with an estimated EF of 65 - 70%. 2. Grade 3 pattern of LV diastolic filling. 3. Right ventricular cavity size is mildly enlarged, global systolic RV function is normal. 4. Severely enlarged left atrium. 5. The aortic valve is calcified and trileaflet, severe stenosis and trivial regurgitation. The aortic valve peak velocity is 4.2 m/s, the peak gradient is 70 mmHg, and the mean gradient is 46 mmHg. The aortic valve area is 0.89 cm with a dimensionless index of 0.28. The stroke volume index is 40.5 ml/m . 6. Mildly increased estimated pulmonary pressures by tricuspid regurgitation velocity and right atrial pressure (39 mmHg including RAP of 3mmHg). 7. Dilated ascending aorta, diameter of 4.5 cm (upper limit of normal for age, sex, and BSA is 4.4 cm*), Height Index 2.46. Comparison Compared to prior exam of 05/12/2024: - Aortic stenosis now measures severe. - Asc aorta is more dilated than prior (previously 4.1cm), recommend cross sectional imaging such as CT to confirm size. Chamber Sizes and Function Normal left ventricular size, moderately increased wall thickness, normal global systolic function with an estimated EF of 65 - 70%. No resting regional wall motion abnormality visualized. Left atrial size is severely enlarged. Right ventricular cavity size is mildly enlarged, global systolic RV function is normal. The right atrium is mildly enlarged. Right atrial volume index is 41 ml/m . Right atrial area is 22 cm . The pulmonary artery is of normal size and origin. The sinus of Valsalva is normal sized. The ascending aorta is dilated. Valves, RV Pressures and Diastolic Function The aortic valve is calcified and trileaflet, severe stenosis and trivial regurgitation. The mitral valve is normal in structure, mild mitral regurgitation. Spectral Doppler shows Grade 3 pattern of LV diastolic filling. The tricuspid valve is normal in structure and mild tricuspid regurgitation. The tricuspid regurgitant velocity is 3.0 m/s, the estimated right ventricular systolic pressure is 36 mmHg plus right atrial pressure. There is mildly increased estimated pulmonary pressure by tricuspid regurgitation velocity and right atrial pressure. The pulmonic valve is not well visualized. Unable to determine pulmonary regurgitation. Masses, Effusion, Shunts There is no pericardial effusion. The inferior vena cava is normal sized, respiratory size variation greater than 50%. No left to right shunting was detected by limited color flow Doppler interrogation of the interatrial septum. MEASUREMENTS AND CALCULATIONS 2-D Measurements and LV Function: LVID (d) 4.1 cm LVOT diameter 2.0 cm IVS (d) 1.4 cm HR 70 bpm Ao Sinus 3.4 cm LA Vol index 50 ml/m2 Ao Sinus ULN 4.2 cm * RA Vol index 41 ml/m2 Asc Ao 4.5 cm RA area 22 cm Asc Ao ULN 4.4 cm * RV Basal Diam 4.5 cm * Input BSA outside of range, reported values correspond RV Mid Diam 3.2 cm to BSA = 2.1 Diastology: Mitral Tissue Doppler E Peak 1.1 m/s e', Septum 0.06 m/s A Peak 0.3 m/s e', Lateral 0.08 m/s E/A 4.2 E/e' Average 15.18 DT 234 msec Aortic Valve: Vmax 4.2 m/s HOLGER (V) 0.86 cm AI P 1/2 492 msec VTI 1.00 m HOLGER (I) 0.89 cm LVOT V max 1.1 m/s Max PG 70 mmHg LVOT VTI 0.28 m Mean PG 46 mmHg SV 89 ml Dim Index 0.28 SV index 41 ml/m CO 6.2 l/min CI 2.8 l/min/m Mitral Valve: MVA 3.2 cm MV P 1/2 68 msec Tricuspid Valve and estimated PA pressures: TR Vmax 3.0 m/s TR maxG 36 mmHg . This study was interpreted by an [facility] accredited facility. Final Procedure Note Ramiro Quinteros MD - 09/09/2024 ECHOCARDIOGRAM CHENTE RICH : 1945 79 years Study Date: 09/09/2024 8:04:21 AM Gender: M BP: 144/74 mmHg Height: 183.00 cm BSA: 2.18 m Weight: 96.00 kg Tech: [facility] Referring MD: JAMAR SCHWARTZ Site: [facility] Reading Location: Mobile OP Patient Location: Outpatient. Procedure: 2D, Color Doppler and Spectral Doppler. Indication for study: Aortic dilatation; Other heart disorders in diseasesclassified elsewhere Cardiac Rhythm: Regular.Study quality: Fair. Final Impressions: 1. Normal LV size, moderately increased wall thickness, normal globalsystolic function with an estimated EF of 65 - 70%. 2. Grade 3 pattern of LV diastolic filling. 3. Right ventricular cavity size is mildly enlarged, global systolic RVfunction is normal. 4. Severely enlarged left atrium. 5. The aortic valve is calcified and trileaflet, severe stenosis andtrivial regurgitation. The aortic valve peak velocity is 4.2 m/s, the peakgradient is 70 mmHg, and the mean gradient is 46 mmHg. The aortic valvearea is 0.89 cm with a dimensionless index of 0.28. The stroke volumeindex is 40.5 ml/m . 6. Mildly increased estimated pulmonary pressures by tricuspidregurgitation velocity and right atrial pressure (39 mmHg including RAP [id number]). 7. Dilated ascending aorta, diameter of 4.5 cm (upper limit of normal forage, sex, and BSA is 4.4 cm*), Height Index 2.46. Comparison Compared to prior exam of 05/12/2024: - Aortic stenosis now measures severe. - Asc aorta is more dilated than prior (previously 4.1cm), recommend crosssectional imaging such as CT to confirm size. Chamber Sizes and Function Normal left ventricular size, moderately increased wall thickness, normalglobal systolic function with an estimated EF of 65 - 70%. No restingregional wall motion abnormality visualized. Left atrial size is severelyenlarged. Right ventricular cavity size is mildly enlarged, globalsystolic RV function is normal. The right atrium is mildly enlarged. Rightatrial volume index is 41 ml/m . Right atrial area is 22 cm . Thepulmonary artery is of normal size and origin. The sinus of Valsalva isnormal sized. The ascending aorta is dilated. Valves, RV Pressures and Diastolic Function The aortic valve is calcified and trileaflet, severe stenosis and trivialregurgitation. The mitral valve is normal in structure, mild mitralregurgitation. Spectral Doppler shows Grade 3 pattern of LV diastolicfilling. The tricuspid valve is normal in structure and mild tricuspidregurgitation. The tricuspid regurgitant velocity is 3.0 m/s, theestimated right ventricular systolic pressure is 36 mmHg plus right atrialpressure. There is mildly increased estimated pulmonary pressure bytricuspid regurgitation velocity and right atrial pressure. The pulmonicvalve is not well visualized. Unable to determine pulmonaryregurgitation. Masses, Effusion, Shunts There is no pericardial effusion. The inferior vena cava is normal sized,respiratory size variation greater than 50%. No left to right shunting wasdetected by limited color flow Doppler interrogation of the interatrialseptum. MEASUREMENTS AND CALCULATIONS 2-D Measurements and LV Function: LVID (d) 4.1 cm LVOT diameter2.0 cm IVS (d) 1.4 cm HR 70bpm Ao Sinus 3.4 cm LA Vol index 50ml/m2 Ao Sinus ULN 4.2 cm * RA Vol index 41ml/m2 Asc Ao 4.5 cm RA area 22cm Asc Ao ULN 4.4 cm * RV Basal Diam4.5 cm * Input BSA outside of range, reported values correspond RV Mid Diam3.2 cm to BSA = 2.1 Diastology: Mitral Tissue Doppler E Peak 1.1 m/s e', Septum 0.06 m/s A Peak 0.3 m/s e', Lateral 0.08 m/s E/A 4.2 E/e' Average 15.18 DT 234 msec Aortic Valve: Vmax 4.2 m/s HOLGER (V) 0.86 cm AI P 1/2 492 msec VTI 1.00 m HOLGER (I) 0.89 cm LVOT V max 1.1 m/s Max PG 70 mmHg LVOT VTI 0.28 m Mean PG 46 mmHg SV 89 ml Dim Index 0.28 SV index 41 ml/m CO 6.2 l/min CI 2.8 l/min/m Mitral Valve: MVA 3.2 cm MV P 1/2 68 msec Tricuspid Valve and estimated PA pressures: TR Vmax 3.0 m/s TR maxG 36 mmHg . This study was interpreted by an [facility] accredited facility. Final us Jamar SWENSON ECHO ORD Final Result * SCAN-OPERATIVE/PROCEDURE REPORT (08/18/2024 12:00 AM GEOGRAPHY HEAD) us Scanner OTHER Final Result * SCAN-RADIOLOGY REPORT (07/27/2024 12:00 AM GEOGRAPHY HEAD) Anatomical Region Laterality Modality Other us Scanner OTHER Final Result * ANTI HCV [[id number]] (05/02/2015 7:09 AM CDT) HEPATITIS C ANTIBODY Non-Reacti ve Non-Reacti ve 05/02/2015 2:42 PM CDT [facility] Blood specimen (specimen) BLOOD SPECIMEN / Unknown Venipuncture / Unknown 05/02/2015 7:09 AM CDT 05/02/2015 7:09 AM CDT Narrative [facility] - 05/02/2015 2:42 PM CDT Antibodies to HCV not detected; does not exclude the possibility of exposure to HCV. us Maikol Cortes MD SEND OUTS Final Result [facility] [address] [place] [address], [place] from Last 3 Months or Most Recently Relevant to Health Maintenance Insurance [place] MR PB ONLY MEDICARE PART B HB ONLY MEDICA PRIME SOLUTION HB MEDICARE PART A HB ONLY Advance Directives Documents on File Type Date Recorded Patient [employer] Healthcare Directive 06/21/2024 024 Healthcare [...] 7:15 AM 12/06/2014 12:26 PM Care Teams Electric Tape Slitter Relationship Specialty Start Date End Date Adrien Hernandez MD [address] [place] [address] PCP - General Family Practice 10/28/16
--- OUTSIDE RECORDS SUMMARY | 2024-10-13 21:19 | XMS_ITS | Clinical Summary ---
Author Organization [employer] Address [facility] [place] [address] Phone Care Team Providers Care Chore Worker Name Role Phone Unavailable Primary Care Provider Unavailabl e Source Comments [employer] is fully rolled out on [employer]. Last update 12/09/08.[employer] Allergies Active Allergy Reactions Criticality Noted Date [...] daily. 5 mL 1 2 11:04 AM BONDING SUPERVISOR 05/21/20 Active moxifloxacin (VIGAMOX) 0.5 % ophthalmic solution Place 1 drop into LEFT eye 4 times daily. 3 mL 1 2 11:04 AM BONDING SUPERVISOR 05/21/20 22 Active ketorolac (ACULAR) 0.5 % ophthalmic solution Place 1 drop into LEFT eye 4 times daily. 5 mL 1 2 11:04 AM BONDING SUPERVISOR 05/21/20 22 Active Active Problems Problem Noted Date Diagnosed Date Myopia with presbyopia of left eye 06/20/2022 Assessment & Plan (06/20/2022 11:15 AM BONDING SUPERVISOR): Refractive Error/Presbyopia - The results of the refraction were discussed with the patient and a new prescription for bifocal/progressive spectacles was dispensed Pseudophakia, left eye 05/29/2022 Assessment & Plan (08/19/2022 10:45 AM BONDING SUPERVISOR): - 3 months s/p CE IOL of [...] Monitor Assessment & Plan (06/20/2022 11:15 AM BONDING SUPERVISOR): One month s/p CE IOL of the left eye. IOP today slightly elevated to 28 in the left eye, which may be steroid response. - Discontinue remainder of postop drops - Return in 1-2 months for IOP check -- if IOP remains elevated, consider starting IOP lowering agent Assessment & Plan (05/29/2022 9:55 AM BONDING SUPERVISOR): One week status post uncomplicated cataract surgery [...] on file Legal Sex Male 4:12 AM BONDING SUPERVISOR Gender Identity Not on file Sexual Orientation Not on file Last Filed Vital Signs Vital Sign Reading Time Taken Comments Blood Pressure 126/91 05/21/2022 10:20 AM BONDING SUPERVISOR Pulse 64 05/21/2022 10:20 AM BONDING SUPERVISOR Temperature 36.3 C (97.3 F) 05/21/2022 9:45 AM BONDING SUPERVISOR Respiratory Rate 16 05/21/2022 10:0 2 AM BONDING SUPERVISOR Oxygen Saturation 97% 05/21/2022 10: 02 AM BONDING SUPERVISOR Inhaled Oxygen Concentration - - Weight 94.7 kg (208 lb 12.8 oz) 05/21/2022 6:48 AM BONDING SUPERVISOR Height 182.9 cm (6') 05/21/2022 6:48 AM BONDING SUPERVISOR Body Mass Index 28.32 05/21/2022 6:48 AM BONDING SUPERVISOR Plan of Treatment Health Maintenance Due Date [...] this topic Medical Devices Implanted Type Area Semiconductor Technician Device Identifier Shelf Expiration Date Model / Serial / Lot Lens Intraocular 20.5 Diopter - [id number] Implanted:Qty: 1 on 05/21/2022 by [facility]in [facility] Lens Left: Eye [employer] 01/28/2026 [id number] / [id number] / Capsular Tension Ring,Amy Mr-1420 Implanted:Qty: 1 on 05/21/2022 by Osvaldo Sparrow MD at [facility] Left: Eye [employer] 05/05/2026 [id number] / / [id number] Insurance MEDICARE [facility]
== END 2024-10-13 22:38 | disposition home or self-care (01) ==
PROVIDERS: Emergency Provider Student in an Organized Health Care Education/Training Program; PCP Surgery
DX: M54.16 Radiculopathy, lumbar region (principal)
CPT/HCPCS: 73502; 99283

== ENCOUNTER 2024-10-26 14:11 | Outpatient (CLI) | payer MEDICARE, OTHER, SELFPAY | END 2024-10-26 14:12 | disposition home or self-care (01) | LOC: INJ CL 14:12 | PROVIDERS: PCP Surgery; Visit Provider Family Medicine | DX: M54.16 Radiculopathy, lumbar region (principal); M51.369 Other intervertebral disc degeneration, lumbar region without mention of lumbar back pain or lower extremity pain | CPT/HCPCS: 62323; J0702; Q9966 ==

== ENCOUNTER 2024-12-21 19:34 | Emergency (ER) | payer MEDICARE, OTHER, SELFPAY ==
--- OUTSIDE RECORDS SUMMARY | 2021-08-23 11:09 | XMS_ITS | Continuity of Care Document ---
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 Phone Will Bran MONGE Unavailable Unavailabl e Allergies, Adverse Reactions, Alerts Substance Reaction Status Criticality naproxen Active No Information latex Active No Information Medications Medication Instructions Dosage Effective Dates (start - stop) Status Comments Eliquis 5 mg tablet take 1 tablet by ora l route 2 times every day 5 MG - Active Cialis 5 mg tablet take 1 tablet by ora l route every day 5 MG - Active clotrimazole-betameth asone 1 %-0.05 % topical cream apply by topical route 2 times every day for 2 weeks to the affected and surrounding areas of skin in the morning and evening 0.00 - Active eszopiclone 3 mg tablet take 1 tablet by oral route every day at bedtime 3 MG - Active gabapentin 100 mg capsule take 2 capsule by oral route every day 200 MG - Active losartan 50 mg tablet take 1 tablet by o ral route every day 50 MG - Active Probiotic 20 billion cell capsule - Active Tylenol Arthritis Pain 650 mg tablet,extended release take 1 tablet by oral route every 8 hours as needed swallowing whole with water. Do not break, crush, dissolve and/or chew. 650 MG - Active Procedures Procedure Date OFFICE/OUTPATIENT VISIT, EST OFFICE CONSULTATION Drug test def 22+ classes Drug Urine Toxology With Chromatography Advance Directives Directive Yes / No Effective Date File Name No Information Encounters Encounter Description Practice Location Reason(s) For Visit Diagnoses Date Provider Providers Copied on Encounter [facility], [address] [facility], [id number] , [place] tel: [phone] [facility] No Information 2 Dany Sotomayor. [address] [facility], [id number] , [place]. tel: [phone] OFFICE/OUTPATI ENT VISIT, EST [facility], [address] [place] [address], [id number] , [place] tel: [phone] [facility] headache (chief complaint) Headache 8 Tish Pate. [place], [address] [facility], [place], [address], [place]. tel: [phone] Referring Provider: Cm Mirza [facility] [address] [place] [address], [address]. tel:[phone] [facility], [address] [place] [address], [id number] , [place] tel: [phone] [facility] headache (chief complaint) HeadacheOther jail (current) drug therapy 8 Schneider Tao. [place], [address], [address], [place]. tel:[phone] Referring Provider: Cm Mirza [address], [address]. tel:[phone] [facility], [address] [place] [address], [id number] , [place] tel: [phone] [facility] headache (chief complaint) No Information 8 Schneider Tao. [employer], [address], [place], [address], [place]. tel:[phone] Family History Family Member Type Diagnosis Age At Onset No Information Payers Payer name Insurance type Covered libertarian ID Authoriza tion(s) [employer] To 16 [id number] Social History Type Description Quantity Date Captured Comments Sex Male Smoking Status No Information Chief Complaint And Reason For Visit No Information Reason For Referral Reason For Referral No Information Plan Of Treatment Date Type Action Status Future Order: Lab Order COMPLCRYSTAL HAAS DRUG ANALYSIS, URINE, WITH MED REPORT ([id number]), Ordered on: Ordered History Of Present Illness Encounter Date Complaint History Of Prese nt Illness headache Severity: modera te. It occurs intermittently, has chronic duration, and is unchanged. Location is frontal left. Symptom is aggravated by sleeping. Relieving factors include OTC meds. Pertinent negatives include fever, nausea and vomiting. headache (comments) Mr. Rubin i s here for a 3-month follow up s/p medical cannabis certification. Reports current medication regimen provides 75% pain relief. Denies side effects from current medication regimen. Pain is stable. He has completed the certification process for medical cannabis and has worked with the [place] dispensary. Reports he has been taking the tangerines which have not been effective for relieving his pain. He also expresses concern about traveling with the medical cannabis as he flys frequently. No other red flags or neurologic symptoms. headache (comments) Mr. Rubin i s here for initial consult for headaches, referred by Dr. Mirza. His pain is in his forehead and it occurs every other night, beginning around 3-4am. Says they occur after he has had good and restful sleep. This problem has been present for 10+ years. States the headaches often persist at a lower level throughout the day. Reports he has had sleep problems for 30+ years. Pt presents with his , who contributes to OV.No other red flags or neurologic symptoms.Tested for sleep apnea at [facility]-- no significant findings. Dr. Mirza suggested Mr. Rubin come here to explore injections and medical cannabis. States he currently takes excedrin for acute pain relief.Mr. Rubin would like [facility] to assume managment of pain care. headache Severity: 2. It occurs intermittently, has chronic duration, and is worse. Location is frontal left and frontal right. There is no radiation. The describes it as Aching. Symptom is aggravated by Sleeping. Relieving factors include prescription drugs. Pertinent negatives include fever. headache Duration: chroni c. headache (comments) Mr. Scottie izaguirre s here for initial consult for headaches, referred by Dr. Mirza. His pain is in his forehead and it occurs every other night, beginning around 3-4am. Says they occur after he has had good and restful sleep. This problem has been present for 10+ years. States the headaches often persist at a lower level throughout the day. Reports he has had sleep problems for 30+ years.No other red flags or neurologic symptoms.Tested for sleep apnea at [facility]-- no significant findings. Underwent PT at -- not helpful. Tried injections at -- not helpful. Reports previous . Has taken for addtional pain relief. Mr. is interested in and would like [facility] to assume managment of pain care. Functional Status Date Functional Assessmen t No Information Instructions Date Instruction Additional Infor mation No Information Assessments Type Assessment Date No Information Patient Care Teams Name Effective Dates (start - stop) Status Members No Information
--- OUTSIDE RECORDS SUMMARY | 2021-08-23 11:09 | XMS_ITS | Continuity of Care Document ---
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 Do not break, crush, dissolve and/or chew. 650 MG - Active Probiotic 20 billion cell capsule - Active losartan 50 mg tablet take 1 tablet by o ral route every day 50 MG - Active gabapentin 100 mg capsule take 2 capsule by oral route every day 200 MG - Active eszopiclone 3 mg tablet take 1 tablet by oral route every day at bedtime 3 MG - Active clotrimazole-betameth asone 1 %-0.05 % topical cream apply by topical route 2 times every day for 2 weeks to the affected and surrounding areas of skin in the morning and evening 0.00 - Active Cialis 5 mg tablet take 1 tablet by ora l route every day 5 MG - Active Eliquis 5 mg tablet take 1 tablet by ora l route 2 times every day 5 MG - Active Procedures Procedure Date OFFICE/OUTPATIENT VISIT, EST OFFICE CONSULTATION Drug test def 22+ classes Drug Urine Toxology With Chromatography Advance Directives Directive Yes / No Effective Date File Name No Information Encounters Encounter Description Practice Location Reason(s) For Visit Diagnoses Date Provider Providers Copied on Encounter [facility], [address] [facility], [id number] , [place] tel: [phone] [facility] No Information 2 Dany Sotomayor. [address] [facility], [id number] , [place]. tel: [phone] OFFICE/OUTPATI ENT VISIT, EST [facility], [address] [place] [address], [id number] , [place] tel: [phone] [facility] headache (chief complaint) Headache 8 Tish Pate. [place], [address] [facility], [place], [address], [place]. tel: [phone] Referring Provider: Cm Mirza [facility] [address] [place] [address], [address]. tel:[phone] OFFICE CONSULTATION [facility], [address] [place] [address], [id number] , [place] tel: [phone] [facility] headache (chief complaint) HeadacheOther senior living (current) drug therapy 8 Schneider Tao. [employer], [address], [place], [address], [place]. tel:[phone] Referring Provider: Cm Mirza [address], [address]. tel:[phone] [facility], [address] [place] [address], [id number] , [place] tel: [phone] [facility] headache (chief complaint) No Information 8 Schneider Tao. [employer], [address], [place], [address], [place]. tel:[phone] Family History Family Member Type Diagnosis Age At Onset No Information Payers Payer name Insurance type Covered republican ID Authoriza tion(s) [employer] To 16 [id number] Social History Type Description Quantity Date Captured Comments Sex Male Smoking Status No Information Chief Complaint And Reason For Visit No Information Reason For Referral Reason For Referral No Information Plan Of Treatment Date Type Action Status Future Order: Lab Order CLYDE HAAS DRUG ANALYSIS, URINE, WITH MED REPORT ([id number]), Ordered on: Ordered History Of Present Illness Encounter Date Complaint History Of Prese nt Illness headache (comments) Mr. Scottie izaguirre s here for a 3-month follow up s/p medical cannabis certification. Reports current medication regimen provides 75% pain relief. Denies side effects from current medication regimen. Pain is stable. He has completed the certification process for medical cannabis and has worked with the [facility]. Reports he has been taking the tangerines which have not been effective for relieving his pain. He also expresses concern about traveling with the medical cannabis as he flys frequently. No other red flags or neurologic symptoms. headache Severity: modera te. It occurs intermittently, [...] or neurologic symptoms.Tested for sleep apnea at [facility]-- no significant findings. Dr. Mirza suggested Mr. Rubin come here to explore injections and medical cannabis. States he currently takes excedrin for acute pain relief.Mr. Rubin would like [facility] to assume managment of pain care. headache [...] or neurologic symptoms.Tested for sleep apnea at [facility]-- no significant findings. Underwent PT at -- not helpful. Tried injections at -- not helpful. Reports previous . Has taken for addtional pain relief. Mr. is interested in and would like [facility] to assume managment of pain care. Functional Status Date Functional Assessmen t No Information Instructions Date Instruction Additional Infor mation No Information Assessments Type Assessment Date No Information Patient Care Teams Name Effective Dates (start - stop) Status Members No Information
--- OUTSIDE RECORDS SUMMARY | 2023-08-28 06:30 | XMS_ITS | Continuity of Care Document ---
Author Organization [facility] Address [address] [address] [place] [address] Phone Care Team Providers Care Call Out Clerk Name Role Phone Mauricio Zheng MD Unavailable [...] PillCam Capsule 1st Day Offic/outpt E&m New Mod-ma Advance Directives Directive Yes / No Effective Date File Name No Information Encounters Encounter Description Practice Location Reason(s) For Visit Diagnoses Date Provider Providers Copied on Encounter Offic/outpt E&m Estab Low-mod [facility], [address] [address], [place], [id number], [place] tel:[phone] [facility] GI Symptoms or Concerns (chief complaint) Incontinence of feces, unspecified fecal incontinence typeAbnormal bowel movement 4 Norm Martínez. [address] [facility], [address], [place], [id number] , [place]. tel:[phone] Referring Provider: Referral Self, USE FOR SELF REFERRALS. [facility], [address] [address], [place], [id number], [place] tel:[phone] [facility] No Information 4 Josesito Willoughby. [address] [facility], [place], [id number] , [place]. tel: [phone] [facility], [address] [address], [place], [id number], [place] tel:[phone] [facility] Anemia, unspecified 1 Dena Valera. [address] [facility], [place], [id number] , [place]. tel: [phone] Referring Provider: Adrien Baig, [address] [place] [address], [address]. tel:[phone] [facility], [address] [address], [place], [id number], [place] tel:[phone] [facility] Anemia, unspecified type 1 Vandana Nunez. [address] [facility], [place], [id number] , [place]. tel: [phone] Referring Provider: Referral Self, USE FOR SELF REFERRALS. Offic/outpt E&m New Mod-hi [facility], [address] [address], [place], [id number], [place] tel:[phone] [facility] Comment (chief complaint) MelenaAnemia, unspecified typeHistory of migraine headachesHistory of atrial fibrillation 1 Vandana Nunez. [address] [facility], [place], [id number] , [place]. tel:[phone] Referring Provider: Referral Self, USE FOR SELF REFERRALS. [facility], [address] [address], [place], [id number], [place] tel:[phone] [facility] No Information 1 Leslee Silva. [address] [facility], [address], [place], [place], [id number] , [place]. tel:[phone] Family History Family Member Type Diagnosis Age [...] Registry Payers Payer name Insurance type Covered constitution party ID Authoriza tion(s) [employer] Sr 16 [id number] Social History Type Description Quantity Date Captured Comments Alcohol Use Details No Caffeine Use Details Unknown Tobacco Use Status Current non-smoker Smoking Status undefined Non-Smoking Tobacco Use Details : No Details Available : No Details Available Sex Male Vital Signs Date / Time: Height Weight [...] anus. He has been followed by a coffee host and treated with antifungal agent. He also [...] anus. He has been followed by a coffee host and treated with antifungal agent. He also [...]
--- OUTSIDE RECORDS SUMMARY | 2023-08-28 06:30 | XMS_ITS | Continuity of Care Document ---
Author Organization [facility] Address [address] [address] [place] [address] Phone Care Team Providers Care Hull Builder Name Role Phone Mauricio Zheng MD Unavailable [...] PillCam Capsule 1st Day Offic/outpt E&m New Mod-wa Advance Directives Directive Yes / No Effective Date File Name No Information Encounters Encounter Description Practice Location Reason(s) For Visit Diagnoses Date Provider Providers Copied on Encounter Offic/outpt E&m Estab Low-mod [facility], [address] [address], [place], [id number], [place] tel:[phone] [facility] GI Symptoms or Concerns (chief complaint) Incontinence of feces, unspecified fecal incontinence typeAbnormal bowel movement 4 Norm Martínez. [address] [facility], [place], [id number] , [place]. tel:[phone] Referring Provider: Referral Self, USE FOR SELF REFERRALS. [facility], [address] [address], [place], [id number], [place] tel:[phone] [facility] No Information 4 Josesito Willoughby. [address] [facility], [place], [id number] , [place]. tel: [phone] [facility], [address] [address], [place], [id number], [place] tel:[phone] [facility] Anemia, unspecified 1 Dena Valera. [address] [facility], [place], [id number] , [place]. tel: [phone] Referring Provider: Adrien Baig, [address] [place] [address], [address]. tel:[phone] [facility], [address] [address], [place], [address], [place] tel:[phone] [facility] Anemia, unspecified type 1 Vandana Nunez. [address] [facility], [place], [id number] , [place]. tel: [phone] Referring Provider: Referral Self, USE FOR SELF REFERRALS. Offic/outpt E&m New Mod-hi [facility], [address] [address], [place], [id number], [place] tel:[phone] [facility] Comment (chief complaint) MelenaAnemia, unspecified typeHistory of migraine headachesHistory of atrial fibrillation 1 Vandana Nunez. [address] [facility], [address], [place], [address] , [place]. tel:[phone] Referring Provider: Referral Self, USE FOR SELF REFERRALS. [facility], [address] [address], [place], [id number], [place] tel:[phone] [facility] No Information 1 Leslee Silva. [address] [facility], [address], [place], [place], [address] , [place]. tel:[phone] Family History Family Member Type Diagnosis Age [...] Registry Payers Payer name Insurance type Covered republican ID Authoriza tion(s) [employer] Sr 16 [id number] Social History Type Description Quantity Date Captured [...] anus. He has been followed by a caregivers homecare and treated with antifungal agent. He also [...] anus. He has been followed by a caregivers homecare and treated with antifungal agent. He also [...]
[2024-12-21] VITALS (8 sets, daily range): BP systolic 127–153; BP diastolic 78–106; PULSE 84–122; RESP 18–20; TEMP 36.8; O2SAT 95–98; BMI 20.9
--- OUTSIDE RECORDS SUMMARY | 2024-12-21 19:36 | XMS_ITS | Data Portability ---
[facility] Address [address] [place] [address] Care Team Providers Care Rn Perioperative Name Role Phone KJ RODAS Primary Care Provider Assessment No assessment recorded. Plan of Treatment Reminders Order Date Submit Date Provider Last Modified By Organization Details Last Modified Time Details Appointments None recorded. Lab PSA, total, serum or plasma [address]- Lab, [address] [place] [address], [address], 5 10:58:30 testosteron e, total, serum [address] [facility], [address] [place] [address], [address], 5 10:58:21 hemoglobin (Hb), blood [address] [facility], [address] [place] [address], [address], 5 10:58:26 PSA, total, serum or plasma [email or web address] [facility], [address] [place], [address], 4 15:14:47 testosteron e, total, serum [email or web address] [facility], [address] [place], [address], 4 15:14:46 hemoglobin (Hb), blood 2023 024 [email or web address] 30 [facility], [address] [place] [address], [address], 4 15:14:46 testosteron e, total, serum 2022 023 [email or web address] [facility], [address] [place] [address], [address], 3 12:29:25 PSA, total, serum or plasma 2022 023 [email or web address] 30 [facility], [address] [place] [address], [address], 3 08:45:23 testosteron e, total, serum 2022 023 [email or web address] 30 [facility], [address] [place] [address], [address], 3 08:45:23 hemoglobin (Hb), blood 2022 023 [email or web address] 30 [facility], [address] [place] [address], [address], 3 08:45:23 PSA, total, serum or plasma 2021 022 [email or web address] 30 [facility], [address] [place] [address], [address], 2 08:48:27 testosteron e, total, serum 2021 022 [email or web address] 30 [facility], [address] [place] [address], [address], 2 08:48:27 Referral None recorded. Procedures None recorded. Surgeries None recorded. Imaging None recorded. Medication Orders Xyosted 75 mg/0.5 mL subcutaneou s auto-inject or 2023 024 [facility], [address] [place], [place], [id number], 4 10:53:47 Xyosted 75 mg/0.5 mL subcutaneou s auto-inject or 2022 023 [facility], [address] [place], [place], [id number], 3 10:27:30 Xyosted 75 mg/0.5 mL subcutaneou s auto-inject or 2022 023 [facility]95, [address] [place], [place], [id number], 11:50:48 Xyosted 75 mg/0.5 mL subcutaneou s auto-inject or 2021 022 [email or web address] [facility]76128, [address] [place], [place], [id number], 00:08:40 Patient TargetsNo targets recorded. Patient Instructions Encounter Date Encounter Id Patient Instructions Last Modified By Organization Details Last Modified Time 04/08/2022 [id number] Telephone - 10 minutes Not available 04/08/2022 11:04:02 10/07/2022 [id number] Telephone - 6 minutes Not available 10/07/2022 11:46:16 04/07/2023 [id number] Telephone - 7 minutes Not available 04/07/2023 10:27:29 10/06/2023 [id number] Telephone - 6 minutes Not available 10/06/2023 10:53:46 10/08/2024 [id number] Telephone - 11 minutes Not available 10/08/2024 10:43:42 Reason for Referral None Reported. Results Created Date Observation Date Name Description Value Unit Range Abnormal Flag Note LastModifiedBy Organization Detail LastModifiedTime 09/28/1909/28/2024 HEMOG LOBIN hemoglobin 15.3 g/dL 13.2-1 7.1 normal Not Available [facility] [address] [place], [address], 09/28/2024 08:49:27 09/28/1909/28/2024 TESTO STERO NE, TOTAL , MALES (ADUL T), IA testosterone , total, males (adult), ia 889 NG/dL 250-82 7 high Not Available [facility] [address] [place], [address], 09/28/2024 08:49:29 09/28/1909/28/2024 PSA, TOTAL PSA, total <0.04 NG/mL < or = 4.00 normal The total PSA value from this assay syste m is stand ardiz ed again st the WHO stand cherry. The test resul t will be appro ximat felipe 20% lower when jeremiah red to the equim olar- stand ardiz ed total PSA (Chaney man Coult er). Jeremiah rison of seria l PSA resul ts shoul d be inter prete d with this fact in mind. This test was perfo rmed using the Bazaart chemi lumin escen t metho d. Value s obtai rom from diffe rent assay metho ds canno t be used inter ledezma harinder . PSA level s, regar dless of value , shoul d not be inter prete d as absol [place] evide nce of the prese nce or absen ce of disea se. Not Available [facility] [address] [place], [address], 09/28/2024 08:49:30 Result Notes None recorded. 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 Procedures Surgical History Date Name Laterality Status Provider Name and Address Organization Details Recorded Time 09/20/19 21 implantation of penile prosthesis completed Zaheer Grider [facility] 04/08/2022 10:07:35 09/20/19 21 insertion of single incision mid-urethral mini-sling completed Zaheer Grider [facility] 04/08/2022 10:08:14 10/26/19 15 prostatectomy completed Zaheer Grider [facility] 04/08/2022 10:06:57 Imaging Results None recorded. Procedure Notes None recorded. Medical Equipment None Reported. Allergies Allergen ID Allergen Name Allergen Category Reaction Reaction Severity Criticality Documentation Date Start Date Code Code System Note Provider Name and Address Organization Details Recorded Time 655854 naproxen medicatio n Not available Not available Not available 12/23/20192014 7258 RxNorm Not Available [facility] 0 00:42:12 443629 Product containin g 3-hydroxy -3-methyl glutaryl- coenzyme A reductase inhibitor (product) medicatio n myalgias (muscle pain) Not available Not available 04/08/2022 79666 009 SNOMED Zaheer laird [facility] 2 10:26:44 Medications Name Sig Start [...] Not Available ketorolac 0.5 % eye drops 10/02 /2023 completed Not Available Not Available Not Available [...] Updated DateTime 10/06/2023 182.88 cm 27.1 kg/m2 97087.47 g Brendon Diaz [facility] 10/06/2023 10:12:15 Date Recorded Body height Body mass index (BMI) Body weight Provider Name and Address Organization Details Last Updated DateTime 10/07/2022 182.88 cm 27.9 kg/m2 84765.[address] [facility] 10/07/2022 10:57:49 Date Recorded Body height Body mass index (BMI) Body weight Provider Name and Address Organization Details Last Updated DateTime 10/08/2024 182.88 cm 27.8 kg/m2 16846.[address] [facility] 10/08/2024 10:11:25 Date Recorded Body height Body mass index (BMI) Body weight Provider Name and Address Organization Details Last Updated DateTime 04/07/2023 182.88 cm 27.9 kg/m2 [address]9280.[address] [facility] 04/07/2023 10:02:38 Date Recorded Body height Body mass index (BMI) Body weight Provider Name and Address Organization Details Last Updated DateTime 04/08/2022 182.88 cm 27.4 kg/m2 [address]397.[address] [facility] 04/08/2022 10:26:15 Social History Question Answer Notes LastModified by Organizat ion Details LastModified Time Tobacco Smoking Status Never Smoker [facility]/08[facility]2022 10:05:49 What Is Your Level Of Caffeine Consumption? Moderate Information not available 10/08/2024 What Was The Date Of Your Most Recent Tobacco Screening? 10/08/2024 Information not available 10/08/2024 Sex: Unknown Functional Status Question Answer Note LastModified by Organizat ion Details LastModified Time Do you use any illicit or recreational drugs? No Information not available 10/08/2024 What is your level of alcohol consumption? None Information not available 10/08/2024 Mental Status None recorded. Family History Nothing Reported. Medical History Condition Response Diabetes Y Bleeding Disorder Other High Blood Pressure Y Kidney Stones Y Heart Disease Y Cancer Lung Disease Y Depression Y Immunizations Vaccine Type Date Status Note Provider Nam e and Address Organization Details Recorded Time Influenza, adjuvanted, quadrivalent, PF 2 completed Brendon laird [facility] 10/06/2023 10:12:19 COVID-19, mRNA, LNP-S, bivalent, PF, 30 mcg/0.3 mL dose 2 [facility] 10:12:19 Influenza, adjuvanted, quadrivalent, PF 3 completed Not Available [facility] 10/08/2024 10:11:53 Influenza, adjuvanted, trivalent, PF 4 completed Not Available [facility] 10/08/2024 10:11:53 Influenza, adjuvanted, trivalent, PF 9 [facility] 04/07/2023 10:02:45 Influenza, adjuvanted, trivalent, PF 7 [facility]23 10:02:45 Influenza, adjuvanted, trivalent, PF 8 completed Rajni Hoang null, [facility] 04/07/2023 10:02:45 zoster recombinant 0 completed Rajni Hoang null, [facility] 04/07/2023 10:02:45 zoster recombinant 9 [facility] 10:02:45 Influenza, adjuvanted, quadrivalent, PF 0 completed Rajni laird, [facility] 04/07/2023 10:02:45 Influenza, adjuvanted, quadrivalent, PF 1 completed Rajni Juareza null, [facility] 04/07/2023 10:02:45 COVID-19, mRNA, LNP-S, PF, 30 mcg/0.3 mL dose 1 completed Rajni Morleyoza null, [facility] 04/07/2023 10:02:45 COVID-19, mRNA, LNP-S, PF, 30 mcg/0.3 mL dose 1 completed Rajni Juareza null, [facility] 04/07/2023 10:02:45 COVID-19, mRNA, LNP-S, PF, 30 mcg/0.3 mL dose 1 completed Rajni Juareza null, [facility] 04/07/2023 10:02:45 COVID-19, mRNA, LNP-S, PF, 30 mcg/0.3 mL dose, irwin-sucrose 2 completed Rajni Juareza null, [facility] 04/07/2023 10:02:45 pneumococcal polysaccharide PPV23 2 completed Rajni Juareza null, [facility] 04/07/2023 10:02:45 Tdap 7 completed Rajni Juareza eitan, [facility] 04/07/2023 10:02:45 Tdap 0 completed Rajni Juareza eitan, [facility] 04/07/2023 10:02:45 Tdap 3 completed Rajni Juareza null, [facility] 04/07/2023 10:02:45 Pneumococcal conjugate PCV 13 5 completed Rajni Juareza null, [facility] 04/07/2023 10:02:45 yellow fever live 2 completed Rajni Juareza null, [facility] 04/07/2023 10:02:45 zoster live 9 completed Rajni Juareza null, [facility] 04/07/2023 10:02:45 Influenza, high-dose, trivalent, PF 6 completed Rajni Juareza null, [facility] 04/07/2023 10:02:45 Influenza, high-dose, trivalent, PF 5 completed Rajni Juareza eitan, [facility] 04/07/2023 10:02:45 Influenza, split virus, trivalent, preservative 9 completed Rajni Juareza null, [facility] 04/07/2023 10:02:45 Influenza, split virus, trivalent, preservative 0 completed Rajni Juarzea null, [facility] 04/07/2023 10:02:45 Influenza, split virus, trivalent, preservative 3 completed [facility]2023 10:02:45 Influenza, split virus, trivalent, preservative 8 completed [facility] 04/07/2023 10:02:45 Influenza, split virus, trivalent, preservative 7 completed Rajni Juareza eitan, [facility] 04/07/2023 10:02:45 Influenza, split virus, trivalent, preservative 2 completed [facility]/07/2023 10:02:45 Influenza, split virus, trivalent, preservative 6 completed [facility] 04/07/2023 10:02:45 Hep A, adult 8 completed Rajni Juareza eitan, [facility] 04/07/2023 10:02:45 typhoid, ViCPs 8 [facility]07[facility]2023 10:02:45 Hep A-Hep B 2 [facility]/07/2023 10:02:45 Past Encounters Encounter ID Performer Location Encounter Start Date Encounter Closed Date Diagnosis/Indication Diagnosis SNOMED-CT Code Diagnosis ICD10 Code Diagnosis Note [id number] MD YUMIKO Lema_Kaur [address] [place] [address] 04/08/2022 10:00:51 04/11/2022 15:05:20 Carcinoma of prostate 730477480 C61 2. Prostate cancer (HC)- pT2c - [place] 3+4 = 7 - s/p RAL prostatect xavi in October 2014- PSA remains undetectab le (< 0.03)- Follow-up in Mar 2023 with PSA Testostero ne level below reference range 719638518 R79.89 1. Low Testostero ne- testostero ne in good range- continue Xyosted 75 mg SC weekly- check Testostero ne in 6 months- need to monitor Hgb (annually) [id number] Koby Batista MD [facility] [employer] [place] [address] 10/07/2022 10:57:06 10/11/2022 09:16:28 Testosterone level below reference range 351483901 R79.89 1. Low Testostero ne- testostero ne in good range- continue Xyosted 75 mg SC weekly- Follow -up in 6 months with Testostero ne and Hgb Carcinoma of prostate 25 6547957 C61 2. Prostate cancer (HC)- pT2c - [place] 3+4 = 7 - s/p RAL prostatect xavi in October 2014- PSA remains undetectab le (< 0.03)- Follow-up in Mar 2023 with PSA [id number] Koby Batista MD [facility] [employer] [place] [address] 04/07/2023 10:02:01 04/17/2023 14:02:17 Testosterone level below reference range 672175713 R79.89 1. Low Testostero ne- testostero ne in good range- continue Xyosted 75 mg SC weekly- Follow -up in 6 months with Testostero ne Carcinoma of prostate 25 0264301 C61 2. Prostate cancer (HC)- pT2c - [place] 3+4 = 7 - s/p RAL prostatect xavi in October 2014- PSA remains undetectab le (< 0.03)- Follow-up in February 2024 with PSA [id number] Koby Batista MD [facility] [place] [address] 10/06/2023 09:44:51 10/07/2023 09:57:47 Testosterone level below reference range 259545306 R79.89 1. Low Testostero ne- testostero ne in good range- continue Xyosted 75 mg SC weekly- Follow -up in 12 months with Testostero ne Carcinoma of prostate 25 9201250 C61 2. Prostate cancer (HC)- pT2c - [place] 3+4 = 7 - s/p RAL prostatect xavi in October 2014- PSA (< 0.02)- remains undetectab le- Follow-up in October 2024 with PSA [id number] Koby Batista MD [facility] [address] [place] [address] 10/08/2024 10:10:57 10/13/2024 12:00:01 Testosterone level below reference range 034197548 R79.89 1. Low Testostero ne- testostero ne in good range- continue Xyosted 75 mg SC weekly- Follow-up in 12 months with Testostero ne Carcinoma of prostate 25 0845459 C61 2. Prostate cancer (HC)- pT2c - [place] 3+4 = 7 - s/p RAL prostatect xavi in October 2014- PSA (< 0.04)- remains undetectab le- Follow-up in October 2025 with PSA Health Concerns Section Related Observation LastModified by Organization Detai ls LastModified Time None Recorded Concern Status LastModified by Organization Details LastModified Time None Recorded Advance Directives Directive None Recorded Payers Insurance Date Sequence Insurance Name Policy Number Policy Ramos Covered Member ID Ramos Member ID Guarantor Name 10/13/2024 1 MEDICA (MEDICARE REPLACEMENT/ ADVANTAGE - PPO) [id number] Chente Rubin [id number] Chente Rubin Notes Date Note Type Note [...] stem-cell inject for ED in October in [place]. He tried Oxybutynin ER 5 mg daily (no changed). He has tried Androgel 50 mg daily and 100 mg daily - still has low Testosterone.09/19/20 - IPP and Coloplast male urethral sling placement ([place] - Dr. Ashok Goins)10/08/21 - He presents [...] and coordinate their care. Koby Batista MD [address] [place] [address],[address], [place], [address] 04/16/2022 23:09:44 10/07/2022 text/html 77 yo [...] stem-cell inject for ED in October in [place]. He tried Oxybutynin ER 5 mg daily (no changed). He has tried Androgel 50 mg daily and 100 mg daily - still has low Testosterone. 09/19/20 - IPP and Coloplast male urethral sling placement ([place] - Dr. Ashok Goins) 04/08/22 - He [...] and coordinate their care. Koby Batista MD [address] [place] [address],[address], [place], [address], [facility] [place] [facility] 10/07/2022 11:50:55 04/07/2023 text/html 77 yo [...] stem-cell inject for ED in October in [place]. He tried Oxybutynin ER 5 mg daily (no changed). He has tried Androgel 50 mg daily and 100 mg daily - still has low Testosterone. Prostate cancer - pT2c No Mx - [place] 3+4=7 - s/p RALP (10/25/14) - (Dr. Pulido) - negative margins - no recurrance to date. 09/19/20 - IPP and Coloplast male urethral sling placement ([place] - Dr. Ashok Goins) 10/07/22 - He presents for follow-up on low testosterone. He states his energy levels and libido are good. He voids every 2-3 hours during the day and 1-3x/night. He denies dysuria - has occasional urgency. He reports a small amount of urine leakage after urination - no leakage at night - occasional leakage with bending or standing up. 10/2/23 - He presents for follow-up on low [...] and coordinate their care. Koby Batista MD [address] [place] [address],[address], [place], [address] 04/07/2023 10:30:16 10/06/2023 text/html 78 yo [...] stem-cell inject for ED in October in [place]. He tried Oxybutynin ER 5 mg daily [...] IPP and Coloplast male urethral sling placement ([place] - Dr. Ashok Goins) 10/07/22 - He [...] and coordinate their care. Koby Batista MD [address] [place] [address],[address], [place], [address] [place] [facility] 10/06/2023 10:54:07 10/08/2024 text/html 79 yo [...] stem-cell inject for ED in October in [place]. He tried Oxybutynin ER 5 mg daily [...] IPP and Coloplast male urethral sling placement ([place] - Dr. Ashok Goins) 04/07/23 - He [...] stones in either kidney Current patient location: [place] Current MD/ASHLEY location: [place] HIPAA compliant platform used: yes Prior to conducting our telephone visit, the [...] and coordinate their care. Koby Batista MD [address] [place] [address],[address], [place], [address], [facility] [place] [facility] 10/08/2024 10:44:00
--- OUTSIDE RECORDS SUMMARY | 2024-12-21 19:36 | XMS_ITS | Data Portability ---
Author Organization [place] [facility], [facility] - [facility] Address [address] [place] [address] Assessment Encounter Date Assessment Date Assessment LastModified by Organization Details LastModified Time 10/14/2024 10/14/2024 ASSESSMENT: Patient is a good candidate for conservative care and the prognosis is for a favorable outcome that achieves the patients' goals. We discussed etiology, activity modifications, home care, and other treatment options. Initially, it is recommended that the patient receive in-office treatment 1 times per week for 8 weeks at which time a re-evaluation will be performed to determine an appropriate change in plan. Initially, treatment will focus on joint manipulation to restore range of motion and reduce pain. We will slowly progress to therapeutic exercises and activities to improve function, strength, and stability may also be used as warranted. If the patient is not responding as expected, more invasive procedures will be discussed along with a referral. All considerations above were discussed with the patient and questions answered to satisfaction. If the patient should have any additional questions, or should the condition evolve or worsen, the patient should not hesitate to contact our office. [email or web address] Not available 10/14/2024 19:47:28 10/15/2024 10/15/2024 ASSESSMENT: Patient is a good candidate for conservative care and the prognosis is for a favorable outcome that achieves the patients' goals. We discussed etiology, activity modifications, home care, and other treatment options. Initially, it is recommended that the patient receive in-office treatment 1 times per week for 8 weeks at which time a re-evaluation will be performed to determine an appropriate change in plan. Initially, treatment will focus on joint manipulation to restore range of motion and reduce pain. We will slowly progress to therapeutic exercises and activities to improve function, strength, and stability may also be used as warranted. If the patient is not responding as expected, more invasive procedures will be discussed along with a referral. All considerations above were discussed with the patient and questions answered to satisfaction. If the patient should have any additional questions, or should the condition evolve or worsen, the patient should not hesitate to contact our office. [email or web address] Not available 10/15/2024 14:11:57 10/18/2024 10/18/2024 ASSESSMENT: Patient is a good candidate for conservative care and the prognosis is for a favorable outcome that achieves the patients' goals. We discussed etiology, activity modifications, home care, and other treatment options. Initially, it is recommended that the patient receive in-office treatment 1 times per week for 8 weeks at which time a re-evaluation will be performed to determine an appropriate change in plan. Initially, treatment will focus on joint manipulation to restore range of motion and reduce pain. We will slowly progress to therapeutic exercises and activities to improve function, strength, and stability may also be used as warranted. If the patient is not responding as expected, more invasive procedures will be discussed along with a referral. All considerations above were discussed with the patient and questions answered to satisfaction. If the patient should have any additional questions, or should the condition evolve or worsen, the patient should not hesitate to contact our office. [email or web address] Not available 10/18/2024 12:31:58 Plan of Treatment Reminders Order Date Submit Date Provider Last Modified By Organization Details Last Modified Time Details Appointments None record ed. Lab None record ed. Referral None record ed. Procedures None record ed. Surgeries None record ed. Imaging None record ed. Medication Orders None record ed. Patient TargetsNo targets recorded. Patient InstructionsNo instructions recorded. Reason for Referral None Reported. 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 [facility]ly [facility], [facility] [place] [address], [place], [address], [facility]ly [facility], [facility] 19:47:28 Low back pain 601999055 Active 2024 [facility], [facility] [place] [address], [place], [address], [facility]ly [facility], [facility] 19:47:28 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 Procedures Surgical History Date Name Laterality Status Provider Name and Address Organization Details Recorded Time 24069: Spinal manipulation , 3 to 4 regions completed Stoney [place] [address], [place], [address], [facility]ly [facility], [facility] 10/18/2024 12:31:58 29366: Spinal manipulation , 3 to 4 regions completed Stoney [place] [address], [place], [address], [facility]ly [facility], [facility] 10/15/2024 14:11:56 64572: Spinal manipulation , 3 to 4 regions completed Baljit Velaianquintin [place] [address], [place], [address], [facility]ly [facility], [facility] 10/14/2024 19:47:58 Imaging Results None recorded. Procedure Notes None recorded. Medical Equipment None Reported. Vitals None Recorded Social History None recorded. Functional Status None recorded. Mental Status None recorded. Family History Nothing Reported. Medical History No medical history recorded. Past Encounters Encounter ID Performer Location Encounter Start Date Encounter Closed Date Diagnosis/Indication Diagnosis SNOMED-CT Code Diagnosis ICD10 Code Diagnosis Note [id number] [facility] [address] [place] [address] 10/14/2024 18:05:09 10/15/2024 11:21:19 Lumbar segmental dysfunction 865457089 M99.03 Low back pain 561288179 M54.50 Somatic dy sfunction of sacral spine 032701153 M99.04 Thoracic s egmental dysfunction 777307358 M99.02 [id number] Stoney Cabello [place] [facility] [place] [address] [place] [address] 10/15/2024 11:03:45 10/15/2024 15:27:54 Lumbar segmental dysfunction 099641915 M99.03 Low back pain 518333054 M54.50 Somatic dy sfunction of sacral spine 446274803 M99.04 Thoracic s egmental dysfunction 613379730 M99.02 [id number] Stoney Cabello [place] [facility] [place] [address] [facility] [place] [address] 10/18/2024 10:32:35 10/18/2024 12:46:21 Lumbar segmental dysfunction 308495385 M99.03 Low back pain 734711686 M54.50 Somatic dy sfunction of sacral spine 296296450 M99.04 Thoracic s egmental dysfunction 787162856 M99.02 Health Concerns Section Related Observation LastModified by Organization Detai ls LastModified Time None Recorded Concern Status LastModified by Organization Details LastModified Time None Recorded Advance Directives Directive None Recorded Payers Insurance Date Sequence Insurance Name Policy Number Policy Ramos Covered Member ID Ramos Member ID Guarantor Name 10/14/2024 2 MEDICA - PRIME SOLUTION (MEDICARE REPLACEMENT/A DVANTAGE - HMO) Chente Rubin [id number] Chente Rubin 10/14/2024 1 [place]: [employer] Chente Rubin [id number] Chente Rubin 10/14/2024 1 *SELF PAY* Reji Rubin Notes Date Note Type Note Provider Name and Address Organization Details Recorded Time 10/14/2024 text/html HPI - Lumbar SpineReported bypatient.Location: left Quality:aching Severity:moderate Timing:morning Aggravating Factors:walking; lifting; carrying; twisting Alleviating Factors:rest Baljit Gastelum [place] [address], [place], [address], [facility]ly [facility], [facility] 10/14/2024 19:48:10 10/15/2024 text/html HPI - Lumbar SpineReported bypatient.Location: left Quality:aching Severity:moderate Timing:morning Aggravating Factors:walking; lifting; carrying; twisting Alleviating Factors:rest Stoney Cabello [place] [address], [place], [address], [facility]ly [facility], [facility] 10/15/2024 14:13:36 10/18/2024 text/html HPI - Lumbar SpineReported bypatient.Location: left Quality:aching Severity:moderate Timing:morning Aggravating Factors:walking; lifting; carrying; twisting Alleviating Factors:savita [place] [address], [place], [address], [facility]ly [facility], [facility] 10/18/2024 12:33:30
--- OUTSIDE RECORDS SUMMARY | 2024-12-21 19:36 | XMS_ITS | Data Portability ---
Author Organization [facility] [employer], [facility] Address [address] [address] Assessment No assessment recorded. Plan of Treatment [...] By Organization Details Last Modified Time 08/19/2018 [id number] knee arthritis: care instructions [email or web address] Not available 08/19/2018 13:50:30 shoulder pain: care instructions [email or web address] Not available 08/19/2018 13:51:25 Reason for Referral [...] Available 2018 11:03:16 Result Notes None recorded. Medical Equipment None Reported. [...] Tendon Tear N Ulcers N Heart Attack ([place]) N Diabetes N Bleeding Disorder N Seizures/Epilepsy [...] SNOMED-CT Code Diagnosis ICD10 Code Diagnosis Note [id number] Maria De Jesus Barillas MD [facility] [address] [address] [facility] [address] [facility] [place] [place] [address] 08/19/2018 11:55:17 08/24/2018 09:58:08 Osteoarthritis of knee 866347446 M17.0 Pain of [facility] 46539455 M25.519 Health Concerns Section Related Observation LastModified by Organization Detai ls LastModified Time None Recorded Concern Status LastModified by Organization Details LastModified Time None Recorded Advance Directives Directive None Recorded Payers Insurance Date Sequence Insurance Name Policy Number Policy Ramos Covered Member ID Ramos Member ID Guarantor Name 08/19/2018 1 *SELF PAY* Reji Rubin 02/06/2019 1 MEDICA CHOICE - [facility] CHOICE PLUS (HMO) [id number] Chente Rubin [id number] Chente Sarabiaen 08/31/2018 1 MEDICA CHOICE - [facility] - CHOICE PLUS (POS) [id number] Chente Sarabiaen [id number] Chente Sarabiaen 09/30/2018 2 [place] [employer] Chente Sarabiaen [id number] Chente Sarabiaen Notes Date Note Type Note Provider Name and Address Organization Details Recorded Time 08/19/2018 text/html See Dictated NoteReported bypatient.Notes:SE E DICTATED NOTES Not Available [facility] 08/24/2018 09:19:31
--- OUTSIDE RECORDS SUMMARY | 2024-12-21 19:36 | XMS_ITS | Clinical Summary ---
Author Organization [employer] Address [address], [place] [address] Care Team Providers Care Supervisor Drapery Hanging Name Role Phone Adrien Hernandez MD Primary Care Provider [phone] Source Comments You are receiving this document [...] for each transition of care or referral. [employer] Allergies No known active allergies Medications * [...] 1945 Medicare Annual Wellness Visit 1945 RSV Vaccine (1 - 1-dose 75+ series) 2022 COVID-19 Vaccine ( - season) 2024 10/04/2020, 09/13/2020 Influenza Vaccine (Season Ended) 2025 04/06/2020, 03/26/2019, 04/13/2018, Additional history exists DTaP/Tdap/Td Vaccine (5 - Tdap) 01/15/2030 01/16/2020, 02/19/2013, 10/31/2006, Additional history exists Pneumococcal Vaccine 50+ Yrs Completed 06/26/2015, 06/11/2012 HepA Vaccine Aged Out 07/29/2017, 03/0 03/2012, 08/30/2011, Additional history exists No longer eligible based on patient's age to complete this topic Zoster/Shingles Vaccine Completed 08/03/19, 05/24/2019, 08/02/2008 HepB Vaccine Aged Out No longer eligi ble based on patient's age to complete this topic Hib Vaccine Aged Out No longer eligi ble based on patient's age to complete this topic IPV (Polio) Vaccine Aged Out No longe r eligible based on patient's age to complete this topic MCV4 Vaccine Aged Out No longer eligi ble based on patient's age to complete this topic Meningococcal B Vaccine Aged Out No l onger eligible based on patient's age to complete this topic Insurance MEDICARE MANAGED CARE MEDICA [employer] PRIME SOLUTION Care Teams Supervisor Drapery Hanging Relationship Specialty Start Date End Date Adrien Hernandez MD [address] [place] [address] PCP - General Family Practice 03/04/18
--- OUTSIDE RECORDS SUMMARY | 2024-12-21 19:37 | XMS_ITS | Clinical Summary ---
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 Lisinopril Cough 11/09/2015 Naproxen Rash,Nausea Only 08/12/2024 Medications artificial tears, peg 400-propylene glycol, (Systane Hydration PF) 0.4-0.3 % ophthalmic dropperette Place 1-2 Drops into both eyes two times daily. Active Xyosted 75 mg/0.5 mL atInIndications:L ow testosterone INJECT 75MG SUBCUTANEOUS WEEKLY 12 mL 022 Active evolocumab (Repatha SureClick) 140 mg/mL subcutaneous pen injectorIndicatio ns:Hyperlipidemia , unspecified hyperlipidemia type Inject 1 mL (140 mg) subcutaneous every 2 weeks. Inject into abdomen, thigh, or upper arms; rotate injection sites 6 mL 2 024 Active omeprazole (PRILOSEC) 40 mg Delayed-Release capsuleIndication s:Gastric reflux Take 1 Capsule (40 mg) by mouth once daily before a meal. 90 Capsule 3 024 Active clobetasol (TEMOVATE) 0.05 % cream APPLY TWICE DAILY TO AFFECTED AREAS ON BODY FOR 2 WEEKS, TAKE 2 WEEKS OFF. REPEAT NEEDED. 024 Active eszopiclone (Lunesta) 2 mg tablet Take 2 mg by mouth at bedtime. Active acetaminophen (Tylenol Extra Strength) 500 mg tabletIndications :S/P AVR (aortic valve replacement) Take 2 Tablets (1,000 mg) by mouth every 6 hours if needed for Pain. Max acetaminophen dose: 4000mg in 24 hrs. 025 Active amLODIPine 5 mg tabletIndications :HTN (hypertension),Ch ronic atrial fibrillation (HC) Take 1 Tablet (5 mg) by mouth once daily. 025 Active apixaban 5 mg tabletIndications :prevent thromboembolism in chronic atrial fibrillation Take 1 Tablet (5 mg) by mouth two times daily. begin taking on 12/21 and discontinue aspirin while you are on Eliquis 5 mg BID 60 Tablet 6 025 Active aspirin 81 mg enteric coated tabletIndications :Presence of Watchman left atrial appendage closure device Take 1 Tablet (81 mg) by mouth once daily with a meal. do not take when you begin Eliquis 5 mg BID 025 Active amiodarone 200 mg tabletIndications :Paroxysmal atrial fibrillation (HC),Atrial fibrillation, unspecified type (HC),Sinus node dysfunction (HC) Take 1 Tablet (200 mg) by mouth once daily. Hold amiodarone beginning 12/21/2024 025 Active aspirin (ECOTRIN) 81 mg enteric coated tabletIndications :Presence of Watchman left atrial appendage closure device Take 1 Tablet (81 mg) by mouth once daily with a meal. 0 023 2024 Discontinued furosemide 20 mg tabletIndications :S/P AVR (aortic valve replacement) Take 1 Tablet (20 mg) by mouth once daily if needed (weight gain of more than 3 lbs in one day or 5 lbs in one week.). 5 Tablet 11/12/19 25 11:53 AM CDT 025 2024 Discontinued(* IP Discontinued) metoprolol tartrate 50 mg tabletIndications :Atrial fibrillation with rapid ventricular response (HC) Take 1 Tablet (50 mg) by mouth two times daily. 60 Tablet 2 05/14/20 25 4:24 PM CDT 025 2024 Discontinued(* Med complete/Regim en complete/Level of care change) amiodarone 200 mg tabletIndications :Paroxysmal atrial fibrillation (HC),Atrial fibrillation, unspecified type (HC),Sinus node dysfunction (HC) Take 1 Tablet (200 mg) by mouth two times daily. Amiodarone 200 mg twice daily until further notice after your cardioversion 120 Tablet 025 2024 Discontinued Active Problems Patient Care Coordination No te Formatting of this note migh t be different from the original. HF/Structural/Prevention Research Eligibility Review Date: 06/22/19 Upcoming Visit Location: [facility] Age: 74 y.o. 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 Kirkpatrick. Osteoarthritis of right shoulder 10/21/2022 10/21/2022 Sensorineural [...] lung 07/29/2017 Overview (07/29/2017): Recently diagnosed at [facility] Paroxysmal atrial fibrillation 04/10/2017 Thoracic aortic aneurysm [...] Encounters Date Type Department Care Team Description 12/21/2024 Telephone [facility] [address] [facility] [address] [place] [address] Anton Goodwin MD 12/20/2024 9:42 AM CDT - 12/20/2024 11:59 PM CDT Hospital Encounter [address] [address] 12/20/2024 Travel 12/17/2024 9:50 AM CDT - 12/17/2024 11:59 PM CDT Hospital Encounter [address] [address] 12/17/2024 Travel 12/15/2024 12:16 PM CDT Anesthesia Event [facility] [address] [place] [address] Edna Cardozo MD Geniesse, Brian Christopher, RAYMOND 12/15/2024 10:18 AM CDT - 12/15/2024 1:40 PM CDT Hospital Encounter [facility] [address] [place] [address] Anton Goodwin MD Presence of Watchman left atrial appendage closure device; Paroxysmal atrial fibrillation (HC); Atrial fibrillation, unspecified type (HC); Sinus node dysfunction (HC) Discharge Disposition: Home Self Care 12/15/2024 Travel 12/13/2024 8:10 AM CDT - 12/13/2024 11:59 PM CDT Hospital Encounter [facility] [address] [place] [address] Ketty Fuentes PA S/P AVR 12/13/2024 Telephone [facility] [address] [facility] [address] [place] [phone] Ti Goodman MD Questions 12/13/2024 Travel 12/12/2024 Telephone [facility] [address] [facility] [address] [place] [phone] Anton Goodwin MD Questions 12/10/2024 9:43 AM CDT - 12/10/2024 11:59 PM CDT Hospital Encounter [address] [address] 12/10/2024 Travel 12/08/2024 9:43 AM CDT - 12/08/2024 11:59 PM CDT Hospital Encounter [address] [address] 12/08/2024 Travel 12/06/2024 8:42 AM CDT - 12/06/2024 11:59 PM CDT Hospital Encounter [address] [address] Ketty Fuentes PA S/P AVR 12/06/2024 Travel 12/01/2024 8:30 AM CDT Office Visit [address] [place] [address] Anton Goodwin MD Follow Up (F/U for PAF) 11/30/2024 Travel 11/30/2024 Telephone [facility] [address] [phone] Ti Goodman MD Atrial Fibrillation (AF post AVR.) 11/18/2024 10:15 AM CDT Office Visit [facility] [address] [place] [address] Adrien Hernandez MD Post-op (Light headed and dizzy) 11/18/2024 Travel 11/18/2024 Patient Outreach [facility] [address] [place] [address] Cheyenne Cooper, ISELA Primary RN Care Management; Hospital F/U (LACE 61) 11/16/2024 12:54 PM CDT - 11/17/2024 4:37 PM CDT Hospital Encounter [facility] [address] [place] [address] Marcellus Martínez MD [facility], BOB Espino, Anny De León DO Atrial fibrillation with rapid ventricular response (HC) (Primary Dx) Discharge Disposition: Home Self Care 11/16/2024 Travel 11/16/2024 Telephone [facility] [address] [phone] Rosie Wallis RN Arrhythmia (1st documentation afib) 11/16/2024 Telephone [facility] [address] [phone] Ti Goodman MD Arrhythmia (/) 11/15/2024 Nurse Triage [facility] [address] [phone] Shelley Hernandez, ISELA Atrial Fibrillation 11/12/2024 Travel 11/12/2024 Patient Outreach [facility] [address] [place] [address] Caryl Ashby, RN Primary RN Care Management; Hospital F/U (LACE 36) 11/10/2024 8:53 AM CDT Anesthesia Event [facility] [address] [place] [address] Edna Cardozo MD 11/04/2024 7:52 AM CDT Anesthesia Event [facility] [address] [place] [address] Enrique Griffin MD [place], Linh Tran, RAYMOND 11/04/2024 7:30 AM CDT - 11/04/2024 2:17 PM CDT Surgery [facility] [address] [place] [address] Florencio Rhodes MD INTRA-OP PABLO PERFORMED BY DR. GRIFFIN, MADAI-STERNOTOMY, AORTIC VALVE REPLACEMENT WITH 25MM INSPIRIS, ASCENDING AORTIC ANEURYSM REPAIR WITH 28MM STRAIGHT GELWEAVE GRAFT, PLACEMENT OF TEMPORARY VENTRICULAR PACING WIRES 11/04/2024 5:51 AM CDT - 11/11/2024 2:13 PM CDT Hospital Encounter [facility] [address] [place] [address] Florencio Rhodes MD S/P AVR (aortic valve replacement) and ascending aortic replacement (Primary Dx); Paroxysmal atrial fibrillation (HC); HTN (hypertension); Chronic atrial fibrillation (HC); S/P AVR Discharge Disposition: Home Self Care 11/04/2024 Travel 11/02/2024 9:05 AM CDT Office Visit [facility] [address] [place] [address] Kathy Reyna PA Fatigue 11/02/2024 Travel 11/01/2024 Telephone [facility] [address] [place] [address] Zenobia Jennings, ISELA Appointment 10/28/2024 10:00 AM CDT Phone Office Visit [facility] [address] [phone] Ashley Orona, ISELA Education (Pre Open Heart Surgery Education ) 10/26/2024 2:40 PM CDT Office Visit [facility] [address] [place] [address] Donny Kirkpatrick MD Procedure (L5-S1 ILESI) 10/25/2024 2:15 PM CDT Office Visit [facility] [address] [place] [address] Adrien Hernandez MD Preoperative Exam (DOS: 11/04/24 ANW/MIKEL, FLORENCIO /REPLACEMENT AORTIC VALVE W/PABLO, ASCENDING AORTIC ANEURYSM REPAIR, POSSIBLE MADAI-STERNOTOMY/REPAI R ASCENDING AORTIC ANEURYSM/MADAI-STERNOT MICHAELA AORTIC VALVE REPLACEMENT) 10/25/2024 Refill [facility] [address] [place] [address] Adrien Hernandez MD Refill Request (Celecoxib) 10/24/2024 Travel 10/22/2024 Orders Only [facility] Scanner 1 scan: (1-Ord) [facility], INTRA-ARTICULAR THERAPEUTIC INJ OF THE LT HIP JOINT, 10/22/2024 10/20/[address] [address] Remigio Loving MD Appointment 10/20/[address] [address] Adrien Hernandez MD Error-please disregard (error) 10/20/[address] [address] Remigio Loving MD questions for up coming heaart surgery (Forwarding message to Cardiology team) 10/20/2024 Travel 10/19/2024 3:05 PM CDT Telemedicine [address] [address] Remigio Loving MD Musculoskeletal Problem (Lower Left back pain - has been ongoing x years/LEFT Buttock, Hip , into groin and down LEFT leg) 10/19/2024 9:45 AM CDT Ancillary Procedure [address] [address] 10/19/2024 9:05 AM CDT Office Visit [address] [address] Kathy Reyna PA Cough 10/19/2024 Orders Only [facility] [address] [place] [address] Ricardo Hammond MD <No scans attached> 10/19/2024 Telephone [facility] [address] [place] [phone] Ti Goodman MD Medication Management 10/19/2024 Travel 10/19/2024 Telephone [facility] [address] [place] [phone] Ashley Orona RN Questions 10/19/2024 Telephone [facility] [address] [place] [address] Adrien Hernandez MD Questions (follow up question ) 10/18/2024 1:30 PM CDT Orders Only [facility] [address] [place] [address] Lab, [facility] 10/18/2024 Travel 10/14/2024 Telephone [facility] [address] [phone] Florencio Rhodes MD Phone Visit 10/13/2024 Orders Only [facility] Scanner 1 scan: (1-Ord) [facility], XR HIP LT MIN 2V, 10/13/2024 10/13/2024 Travel 10/05/2024 Telephone [facility] [address] [phone] Ti Goodman MD Questions (Post surgery follow up ) 10/04/2024 3:30 PM CDT Office Visit [facility] [address] [place] [address] Adrien Hernandez MD Pre-Op Exam (Arotic valve replacement [facility]W with on 10/19) 10/04/2024 10:30 AM CDT Phone Office Visit [facility] [address] [place] [phone] Gabriel Antony, ISELA Education (Pre Open Heart Surgery Education ) 10/04/2024 Travel 09/29/2024 Travel 09/27/2024 11:15 AM CDT Orders Only [facility] [address] [facility] [address] [facility] 09/27/2024 Travel 09/24/2024 Telephone [facility] [address] [facility] [address] Adrien Hernandez MD Error-please disregard 09/21/2024 1:30 PM CDT Office Visit [facility] [address] [facility] [address] [place] [address] Florencio Rhodes MD CV General Cardiology Est (FOLLOW UP PER LIANA//PCP:Adrien Hernandez MD/) 09/20/2024 Travel from Last 3 Months Immunizations Immunization Administration [...] PHQ-2 Answer Date Recorded PHQ-2 TOTAL SCORE 1 12/06/2024 Social Connections Answer Date Recorded Do you often feel lonely or isolated from those around you? 0 11/17/2024 Financial Resource Strain Answer Date R ecorded Difficulty of Paying Living Expenses 3 05/24/2024 Difficulty of Paying Living Expenses Not on file 05/24/2024 Food Insecurity Answer Date Recorded Do you worry your food will run out before you are able to buy more? 1 11/17/2024 Transportation Needs Answer Date Record ed Does lack of transportation keep you from medica l appointments? 1 11/17/2024 Does lack of transportation keep you from work, meetings or getting things that you need? 1 11/17/2024 Housing Stability Answer Date Recorded What is your housing situation today? 1 11/17/2024 Interpersonal Safety Answer Date Record ed Are you being hit, kicked, p ushed or yelled at (see row info)? No 12/15/2024 Interpersonal Safety Abuse 12 - 18 Not on file 12/15/2024 Interpersonal Safety Ambulatory Vulnerability No t on file 12/15/2024 Utilities Answer Date Recorded Do you have trouble paying f or utilities (for example, heat, electricity, water, phone)? 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 Not on file Not on file Obstetrics History Last Filed Vital Signs Vital Sign Reading Time Taken Comments Blood Pressure 121/87 12/15/2024 1:00 PM CDT Pulse 75 12/15/2024 1:00 PM CDT Temperature 36.4 C (97.6 F) 12/15/2024 11:08 AM CDT Respiratory Rate 16 12/15/2024 12:30 PM CDT Oxygen Saturation 97% 12/15/2024 1:00 PM CDT Inhaled Oxygen Concentration - - Weight 87 kg (191 lb 12.8 oz) 12/15/2024 11:08 A M CDT Height 182.9 cm (6') 12/15/2024 11:08 AM CDT Body Mass Index 26.01 12/15/2024 11:08 AM CDT Plan of Treatment Upcoming Encounters Date Type Department Care Team (Late st Contact Info) Description 12/22/2024 10:00 AM CDT Appointment [facility] [address] [place] [address] 12/24/2024 10:00 AM CDT Appointment [facility] [address] [place] [address] 12/27/2024 10:00 AM CDT Appointment [facility] [address] [place] [address] 12/28/2024 8:00 AM CDT Appointment [facility] [address] [place] [address] Ti Goodman MD [address] [address] 12/29/2024 10:00 AM CDT Appointment [facility] [address] [place] [address] 12/31/2024 10:00 AM CDT Appointment [facility] [address] [place] [address] 01/03/2025 10:00 AM CDT Appointment [facility] [address] [place] [address] 01/05/2025 10:00 AM CDT Appointment [facility] [address] [place] [address] 01/10/2025 10:00 AM CDT Appointment [facility] [address] [place] [address] 01/12/2025 10:00 AM CDT Appointment [facility] [address] [place] [address] 01/14/2025 10:00 AM CDT Appointment [facility] [address] [place] [address] 01/17/2025 10:00 AM CDT Appointment [facility] [address] [place] [address] 01/19/2025 10:00 AM CDT Appointment [facility] [address] [place] [address] 01/21/2025 10:00 AM CDT Appointment [facility] [address] [place] [address] 01/24/2025 10:00 AM CDT Appointment [facility] [address] [place] [address] 01/26/2025 10:00 AM CDT Appointment [facility] [address] [place] [address] 01/28/2025 10:00 AM CDT Appointment [facility] [address] [place] [address] 01/31/2025 10:00 AM CDT Appointment [facility] [address] [place] [address] 02/02/2025 10:00 AM CDT Appointment [facility] [address] [place] [address] 02/04/2025 10:00 AM CDT Appointment [facility] [address] [place] [address] 02/07/2025 10:00 AM CDT Appointment [facility] [address] [place] [address] 02/09/2025 10:00 AM CDT Appointment [facility] [address] [place] [address] 02/11/2025 10:00 AM CDT Appointment [facility] [address] [place] [address] 02/14/2025 10:00 AM CDT Appointment [facility] [address] [place] [address] 02/16/2025 10:00 AM CDT Appointment [facility] [address] [place] [address] 02/18/2025 10:00 AM CDT Appointment [facility] [address] [place] [address] 02/21/2025 10:00 AM CDT Appointment [facility] [address] [place] [address] 02/23/2025 10:00 AM CDT Appointment [facility] [address] [place] [address] 02/25/2025 10:00 AM CDT Appointment [facility] [address] [place] [address] Health Maintenance Due Date Last Done Comments Hepatitis B series for 19+ ( 2 of 3 - 19+ 3-dose series) 10/11/2011 09/13/2011, 08/30/2011, 08/23/2011 RSV vaccine for adults or (1 - 1-dose 75+ series) 2022 COVID-19 vaccine series (2023-25 season) 2024 05/16/2022, 12/07/2021, 05/07/2021, Additional history exists Medicare Wellness for age 65+ 06/16/2025, 04/14/2023, 07/16/2021, Additional history exists BMI (ht and wt on same day) for age 18+ 12/01/2025 12/01/2024, 10/04/2024, 09/16/2024, Additional history exists Depression screening for age 12+ 12/06/2025 12/06/2024, 06/15/2024, 04/18/2023, Additional history exists Tetanus booster 01/15/2030 01/16/2020, 02/04, 10/31/2006, Additional history exists Hepatitis C screening for ag e 18-79 Completed 05/02/2015 Pneumococcal series for age 50+ Completed 06/26/2015, 06/26/2015, 06/11/2012 Zoster (shingles) series for age 50+ Completed 08/03/2019, 05/24/2019, 08/02/2008 Tdap Completed 01/16/2020, 02/04, 10/31/2006 Influenza Vaccine Completed 06/15/2024, , 05/16/2022, Additional history exists Medical Devices Implanted Type Area Centrifuge Separator Operator Device Identifier Shelf Expiration Date Model / Serial / Lot Amnio Fix 2.0x12.0cm Implanted:Qty: 1 on 10/25/2014 at [facility] [id number] / / [id number] Description:AMNIO FIX 2.0X12 .0CM Valve Aortic 25mm Inspirus Resilia Tissue - [id number] Implanted:Qty: 1 on 11/04/2024 by Florencio Rhodes MD at [facility] N/A: Aortic Valve [employer] 2 Step Itzel [id number] 07/05/2029 [id number] / [id number] / Description:Aortic valve-MARK VE AORTIC 25MM INSPIRUS RESILIA TISSUE by [employer], Ref:[id number], SN:[id number], Exp:07-05-2029, implanted by Dr. Rhodes on 11-04-2024 Graft Vasc [id number] Vascutek Gelweave Stra - [id number] Implanted:Qty: 1 on 11/04/2024 by Florencio Rhodes MD at [facility] N/A: Aorta Tunessence 07/06/2027 [id number] / [id number] / Description:Aorta-GRAFT VASC [id number] VASCUTEK GELWEAVE STRAIGHT by [employer]ange, Ref:[id number]. SN:[id number], Exp:07-06-2027, implanted by Dr. Rhodes on 11-04-2024 Procedures Procedure Name Priority Date/Time Associated Diagnosis Comments SCAN-CARDIAC REHABILITATION 12/20/2024 9:54 AM CDT SCAN-CARDIAC REHABILITATION 12/17/2024 9:55 AM CDT EKG 12 LEAD Post Op 12/15/2024 12:27 PM CDT EP CARDIOVERSION Routine 12/15/2024 12:26 PM CDT ISTAT CHEM 8 Timed 12/15/2024 11:34 AM CDT EKG 12 LEAD Preop 12/15/2024 11:18 AM CDT SCAN-CARDIAC STRIP 12/15/2024 12:[address] CARDIAC MORPHOLOGY W CV DUAL READ Routine 12/13/2024 9:20 AM CDT S/P AVR CT CARDIAC MORPHOLOGY W RAD DUAL READ Routine 12/13/2024 9:20 AM CDT S/P AVR SCAN-CARDIAC REHABILITATION 12/10/2024 9:53 AM CDT SCAN-CARDIAC REHABILITATION 12/08/2024 12:00 AM CDT SCAN-CARDIAC REHABILITATION 12/06/2024 9:56 AM CDT EKG 12 LEAD Routine 12/01/2024 8:26 AM CDT Paroxysmal atrial fibrillation (HC) Atrial fibrillation, unspecified type (HC) EKG 12 LEAD Routine 11/19/2024 9:22 AM CDT Chronic atrial fibrillation (HC) CA READING EKG - NO CHARGE, COMP ONLY Routine 11/19/2024 9:21 AM CDT Chronic atrial fibrillation (HC) HEMOGLOBIN Routine 11/18/2024 11:31 AM CDT Anemia, unspecified type MAGNESIUM Early AM 11/17/2024 7:57 AM CDT PLATELET COUNT Early AM 11/17/2024 7:57 AM CDT HEMOGLOBIN Early AM 11/17/2024 7:57 AM CDT WHITE BLOOD COUNT Early AM 11/17/2024 7:57 AM CDT CREATININE Early AM 11/17/2024 7:57 AM CDT POTASSIUM Early AM 11/17/2024 7:57 AM CDT SODIUM Early AM 11/17/2024 7:57 AM CDT SCAN-CARDIAC STRIP 11/17/2024 7:49 AM CDT EXTENDED HOLTER Routine 11/17/2024 Atrial fibrillation with rapid ventricular response (HC) SCAN-CARDIAC STRIP 11/16/2024 7:47 PM CDT MAGNESIUM Add On 11/16/2024 6:36 PM CDT PLATELET ESTIMATE STAT 11/16/2024 1:27 PM CDT CBC WITH AUTO DIFFERENTIAL STAT 11/16/2024 1:27 PM CDT MAGNESIUM STAT 11/16/2024 1:27 PM CDT BASIC METABOLIC PANEL STAT 11/16/2024 1:27 PM CDT CBC WITH AUTO DIFFERENTIAL STAT 11/16/2024 1:27 PM CDT EKG 12 LEAD STAT 11/16/2024 12:18 PM CDT SODIUM Early AM 11/11/2024 7:56 AM CDT POTASSIUM Early AM 11/11/2024 7:56 AM CDT CREATININE Early AM 11/11/2024 7:56 AM CDT HEMOGLOBIN Early AM 11/11/2024 7:55 AM CDT SCAN-CARDIAC STRIP 11/11/2024 7:16 AM CDT EKG 12 LEAD Timed 11/11/2024 6:21 AM CDT EXTENDED HOLTER Routine 11/11/2024 Paroxysmal atrial fibrillation (HC) S/P AVR (aortic valve replacement) and ascending aortic replacement SCAN-CARDIAC STRIP 11/10/2024 10:07 PM CDT POTASSIUM Timed 11/10/2024 2:44 PM CDT EKG 12 LEAD Post Op 11/10/2024 9:11 AM CDT ECHO PABLO WO CONTRAST W COLOR W LTD DOPPLER Routine 11/10/2024 9:11 AM CDT SCAN-CARDIAC STRIP 11/10/2024 7:37 AM CDT HEMOGLOBIN Early AM 11/10/2024 6:17 AM CDT SODIUM Early AM 11/10/2024 6:17 AM CDT POTASSIUM Early AM 11/10/2024 6:17 AM CDT CREATININE Early AM 11/10/2024 6:17 AM CDT SCAN-CARDIAC STRIP 11/09/2024 10:17 PM CDT POTASSIUM Timed 11/09/2024 6:34 PM CDT MAGNESIUM Timed 11/09/2024 6:34 PM CDT GLUCOSE METER Timed 11/09/2024 12:55 PM CDT HEMOGLOBIN Today 11/09/2024 12:06 PM CDT XR CHEST 2 VIEWS PA AND LATERAL Routine 11/09/2024 9:19 AM CDT GLUCOSE METER Timed 11/09/2024 8:05 AM CDT SCAN-CARDIAC STRIP 11/09/2024 8:00 AM CDT MAGNESIUM Early AM 11/09/2024 7:10 AM CDT BASIC METABOLIC PANEL Early AM 11/09/2024 7:10 AM CDT CBC W PLT NO DIFF Early AM 11/09/2024 7:10 AM CDT SCAN-CARDIAC STRIP 11/08/2024 9:59 PM CDT GLUCOSE METER Timed 11/08/2024 9:25 PM CDT EKG 12 LEAD Routine 11/08/2024 7:50 PM CDT GLUCOSE METER Timed 11/08/2024 5:37 PM CDT XR CHEST 1 VIEW PORTABLE Routine 025 11:15 AM CDT XR ABDOMEN 1 VIEW PORTABLE Routine 11/08/2024 11:15 AM CDT GLUCOSE METER Timed 11/08/2024 11:06 AM CDT SCAN-CARDIAC STRIP 11/08/2024 7:28 AM CDT GLUCOSE METER Timed 11/08/2024 7:11 AM CDT MAGNESIUM Early AM 11/08/2024 6:59 AM CDT BASIC METABOLIC PANEL Early AM 11/08/2024 6:59 AM CDT CBC W PLT NO DIFF Early AM 11/08/2024 6:59 AM CDT SCAN-CARDIAC STRIP 11/07/2024 10:35 PM CDT GLUCOSE METER Timed 11/07/2024 9:42 PM CDT SCAN-CARDIAC STRIP 11/07/2024 7:08 PM CDT GLUCOSE METER Timed 11/07/2024 6:00 PM CDT MAGNESIUM Timed 11/07/2024 3:17 PM CDT GLUCOSE METER Timed 11/07/2024 11:59 AM CDT HEMOGLOBIN Timed 11/07/2024 11:51 AM CDT EKG 12 LEAD Routine 11/07/2024 6:02 AM CDT BASIC METABOLIC PANEL Early AM 11/07/2024 4:51 AM CDT MAGNESIUM Early AM 11/07/2024 4:51 AM CDT CBC W PLT NO DIFF Early AM 11/07/2024 4:51 AM CDT PROTIME-INR Early AM 11/07/2024 4:51 AM CDT SCAN-CARDIAC STRIP 11/06/2024 9:52 PM CDT SCAN-CARDIAC STRIP 11/06/2024 8:17 PM CDT GLUCOSE METER Timed 11/06/2024 6:37 PM CDT SPUTUM CULTURE, STAIN Today 11/06/2024 5:03 PM CDT GLUCOSE METER Timed 11/06/2024 12:41 PM CDT LACTATE VENOUS Today 11/06/2024 12:40 PM CDT ECHO TTE LIMITED WO CONTRAST W COLOR W LTD DOPPLER AINSLEY 11/06/2024 10:59 AM CDT GLUCOSE METER Timed 11/06/2024 8:46 AM CDT LACTATE VENOUS Timed 11/06/2024 5:48 AM CDT O2 SATURATION,MEASURED STAT 5:31 AM CDT EKG 12 LEAD STAT 11/06/2024 4:54 AM CDT SCAN-CARDIAC STRIP 11/06/2024 4:49 AM CDT SCAN-CARDIAC STRIP 11/06/2024 4:49 AM CDT PLATELET ESTIMATE Timed 11/06/2024 4:18 AM CDT LACTATE VENOUS Early AM 11/06/2024 4:18 AM CDT [facility]UM IONIZED [facility]OSPITAL DRAW ONLY Early AM 11/06/2024 4:18 AM CDT MAGNESIUM STAT 11/06/2024 4:18 AM CDT PROCALCITONIN Early AM 11/06/2024 4:18 AM CDT HEPATIC FUNCTION PANEL Early AM 4:18 AM CDT CBC W PLT NO DIFF Early AM 11/06/2024 4:18 AM CDT BASIC METABOLIC PANEL Early AM 11/06/2024 4:18 AM CDT PROTIME-INR Early AM 11/06/2024 4:18 AM CDT GLUCOSE METER Timed 11/05/2024 11:07 PM CDT PROCALCITONIN Today 11/05/2024 10:53 PM CDT LACTATE VENOUS Timed 11/05/2024 10:53 PM CDT BLOOD CULTURE Today 11/05/2024 9:15 PM CDT BLOOD CULTURE Today 11/05/2024 9:15 PM CDT LACTATE VENOUS Timed 11/05/2024 8:01 PM CDT GLUCOSE METER Timed 11/05/2024 5:51 PM CDT O2 SATURATION,MEASURED AINSLEY 5:51 PM CDT HEMOGLOBIN AINSLEY 11/05/2024 5:51 PM CDT LACTATE VENOUS Timed 11/05/2024 5:51 PM CDT URINE CULTURE AINSLEY 11/05/2024 4:53 PM CDT URINALYSIS MICROSCOPIC Timed 4:53 PM CDT MRSA/SA PCR Today 11/05/2024 4:53 PM CDT UA W/ SEDIMENT EXAM REFLEXED PER CRITERIA Today 11/05/2024 4:53 PM CDT PROCALCITONIN STAT 11/05/2024 3:48 PM CDT HEPATIC FUNCTION PANEL AINSLEY 2:33 PM CDT LACTATE ARTERIAL STAT 11/05/2024 2:33 PM CDT MAGNESIUM Timed 11/05/2024 2:33 PM CDT LACTATE ARTERIAL STAT 11/05/2024 11:22 AM CDT O2 SATURATION,MEASURED STAT 11:22 AM CDT GLUCOSE METER Timed 11/05/2024 11:21 AM CDT [facility] DRAW ONLY STAT 11/05/2024 9:28 AM CDT GLUCOSE METER Timed 11/05/2024 8:36 AM CDT EKG 12 LEAD AINSLEY 11/05/2024 6:49 AM CDT EKG 12 LEAD Early AM 11/05/2024 6:48 AM CDT GLUCOSE METER Timed 11/05/2024 6:17 AM CDT XR CHEST 1 VIEW PORTABLE Routine 025 4:58 AM CDT MAGNESIUM Early AM 11/05/2024 4:16 AM CDT LACTATE ARTERIAL Today 11/05/2024 4:16 AM CDT CBC W PLT NO DIFF Early AM 11/05/2024 4:16 AM CDT PROTIME-INR Early AM 11/05/2024 4:16 AM CDT BASIC METABOLIC PANEL Early AM 11/05/2024 4:16 AM CDT GLUCOSE METER Timed 11/05/2024 4:15 AM CDT [facility] DRAW ONLY Early AM 11/05/2024 1:05 AM CDT LACTATE ARTERIAL Today 11/05/2024 1:05 AM CDT GLUCOSE METER Timed 11/05/2024 1:04 AM CDT GLUCOSE METER Timed 11/04/2024 10:13 PM CDT LACTATE ARTERIAL Today 11/04/2024 10:13 PM CDT GLUCOSE METER Timed 11/04/2024 8:22 PM CDT HEMOGLOBIN AINSLEY 11/04/2024 6:54 PM CDT LACTATE ARTERIAL Timed 11/04/2024 6:10 PM CDT O2 SATURATION,MEASURED Timed 6:10 PM CDT GLUCOSE METER Timed 11/04/2024 6:00 PM CDT GLUCOSE METER Timed 11/04/2024 4:04 PM CDT GLUCOSE METER Timed 11/04/2024 2:11 PM CDT XR CHEST 1 VIEW PORTABLE STAT 025 1:14 PM CDT GLUCOSE METER Timed 11/04/2024 1:08 PM CDT O2 SATURATION,MEASURED Timed 1:05 PM CDT [facility] DRAW ONLY Timed 11/04/2024 1:05 PM CDT LACTATE ARTERIAL Timed 11/04/2024 1:05 PM CDT FIBRINOGEN,QUANTITATIVE STAT 11/05/19 1:04 PM CDT THROMBIN TIME STAT 11/04/2024 1:04 PM CDT PROTIME-INR STAT 11/04/2024 1:04 PM CDT APTT STAT 11/04/2024 1:04 PM CDT PLATELET COUNT STAT 11/04/2024 1:04 PM CDT MAGNESIUM STAT 11/04/2024 1:04 PM CDT POTASSIUM STAT 11/04/2024 1:04 PM CDT HEMOGLOBIN STAT 11/04/2024 1:04 PM CDT EKG 12 LEAD Routine 11/04/2024 12:57 PM CDT Paroxysmal atrial fibrillation (HC) PLATELET COUNT STAT 11/04/2024 10:54 AM CDT CARDIAC THROMBOELASTOGRAPHY STAT 11/04/2024 10:54 AM CDT FIBRINOGEN,QUANTITATIVE STAT 11/05/19 10:54 AM CDT ECHO PABLO INTRAOPERATIVE Routine 11/05/19 10:45 AM CDT PATH TISSUE EXAM Today 11/04/2024 9:39 AM CDT HCHG KIT PR5 Routine 11/04/2024 8:46 AM CDT C AN INTRODUCER 1 LUMEN PERFORMABLE Routine 11/04/2024 8:46 AM CDT HCHG DRSG PR1 Routine 11/04/2024 8:46 AM CDT HCHG DRSG PR5 Routine 11/04/2024 8:46 AM CDT HCHG TUBING PR5 Routine 11/04/2024 8:46 AM CDT HCHG KIT MONITORING PR5 Routine 11/05/19 8:46 AM CDT HCHG CATH INFUSION PR30 Routine 11/05/19 8:46 AM CDT HCHG ANES US GUIDE FOR VASC ACCESS Routine 11/04/2024 8:46 AM CDT HCHG STOPCOCK PR5 Routine 11/04/2024 8:46 AM CDT HCHG INTRDCR NON GUIDING NON LASER PR40 Routine 11/04/2024 8:46 AM CDT CVC TRIPLE LUMEN Routine 11/04/2024 8:46 AM CDT PABLO Routine 11/04/2024 8:46 AM CDT ENDOTRACHEAL TUBE Routine 11/04/2024 8:19 AM CDT ENDOTRACHEAL TUBE Routine 11/04/2024 8:19 AM CDT HCHG KIT PR5 Routine 11/04/2024 7:33 AM CDT HCHG DRSG PR5 Routine 11/04/2024 7:33 AM CDT HCHG DRSG PR1 Routine 11/04/2024 7:33 AM CDT HCHG TUBING PR20 Routine 11/04/2024 7:33 AM CDT HCHG TUBING PR1 Routine 11/04/2024 7:33 AM CDT [facility] ANES ARTERIAL CATH FOR SAMPLE MONITOR TRANS Routine 11/04/2024 7:33 AM CDT HC ANES US GUIDE FOR VASC ACCESS Routine 11/04/2024 7:33 AM CDT HCHG CATH PR5 Routine 11/04/2024 7:33 AM CDT MADIA-STERNOTOMY AORTIC VALVE REPLACEMENT 11/04/2024 7:22 AM CDT ascending aortic aneurysm, Case Notes REPLACEMENT AORTIC VALVE W/PABLO, ASCENDING AORTIC ANEURYSM REPAIR, POSSIBLE MADAI-STERNOTOMY REPAIR ASCENDING AORTIC ANEURYSM 11/04/2024 7:22 AM CDT ascending aortic aneurysm, Case Notes REPLACEMENT AORTIC VALVE W/PABLO, ASCENDING AORTIC ANEURYSM REPAIR, POSSIBLE MADAI-STERNOTOMY REPLACEMENT AORTIC VALVE 025 7:22 AM CDT ascending aortic aneurysm, Case Notes REPLACEMENT AORTIC VALVE W/PABLO, ASCENDING AORTIC ANEURYSM REPAIR, POSSIBLE MADAI-STERNOTOMY TYPE & SCREEN Preop 11/04/2024 6:55 AM CDT BASIC METABOLIC PANEL Preop 11/04/2024 6:55 AM CDT CBC W PLT NO DIFF Preop 11/04/2024 6:55 AM CDT SCAN-CARDIAC STRIP 11/04/2024 12:00 AM CDT SCAN-OPERATIVE/PROCEDURE REPORT 11/04/2024 12:00 AM CDT AMB EPIDURAL STEROID INJECTION Routine 10/26/2024 8:03 AM CDT Lumbar radiculopathy Lumbar spondylosis CA NJX DX/THER SBST INTRLMNR LMBR/SAC W/IMG GDN Routine 10/26/2024 12:00 AM CDT Lumbar radiculopathy Lumbar spondylosis HEMOGLOBIN Routine 10/25/2024 3:43 PM CDT Nonrheumatic aortic valve stenosis SCAN-OPERATIVE/PROCEDURE REPORT 10/22/2024 12:00 AM CDT XR CHEST 2 VIEWS PA AND LATERAL AINSLEY 10/19/2024 9:52 AM CDT Acute cough COVID/FLU/RSV PANEL Routine 10/19/2024 9:17 AM CDT Acute cough TYPE & SCREEN Routine 10/18/2024 1:27 PM CDT Pre-op testing PROTIME-INR Routine 10/18/2024 1:27 PM CDT Chronic atrial fibrillation (HC) SCAN-RADIOLOGY REPORT 10/13/2024 12:00 AM CDT ANTI HCV Routine 05/02/2015 7:09 AM CDT Need for hepatitis C screening test from Last 3 Months or Most Recently Relevant to Health Maintenance Results * SCAN-CARDIAC REHABILITATION (12/20/2024 9:54 AM CDT) Only the most recent of5 resultswithin the time period is included. us Scanner OTHER Final Result * EKG (12/15/2024 12:27 PM CDT) Only the most recent of13 resultswithin the time period is included. Interpretation Normal sinus rhythm QTcB >= 480 msec Abnormal ECG When compared with ECG of 15-Dec-2024 11:18, (Unconfirmed) Vent. rate has decreased by 50 bpm Nonspecific T wave abnormality no longer evident in Inferior leads BEYOND NOW Ventricular Rate 75 BPM BEYOND NOW Atrial Rate 75 BPM BEYOND NOW P-R Interval 188 ms BEYOND NOW QRS Duration 90 ms BEYOND NOW QT 440 ms BEYOND NOW QTc 491 ms BEYOND NOW P [place] 86 degrees BEYOND NOW R [place] 16 degrees BEYOND NOW T [place] 33 degrees BEYOND NOW 12/15/2024 12:2 7 PM CDT 12/16/2024 7:09 PM CDT Narrative BEYOND NOW - 12/16/2024 7:09 PM CDT Test Indication: post us Vesna SWENSON EKG ORD Final Result BEYOND NOW [place], [place] * EP CARDIOVERSION (12/15/2024 12:26 PM CDT) Anatomical Region Laterality Modality X-Ray Angiograph y Narrative 12/15/2024 12:26 PM CDT Gianni Zarate MD 12/15/2024 12:36 PM [facility] Cardiac Electrophysiology Procedure Note DOS: 12/15/2024 Brief History: Shanice Rubin is a pleasant 79 y.o. with history of atrial arrhythmias who now presents to [facility] NPO since midnight for direct current cardioversion. On ASA 81 mg daily S/P Watchman. Procedure Description: Time out was called. Brief general anesthesia by anesthesia service. Cardioversion patches were placed in an anterior/posterior position. One synchronized 200 J shock was delivered with successful cheondoism of SR, VRs 70s. Complications: No acute complications. Plan: Shanice Rubin is now recovering from sedation and anticipate discharge home later today. Dr. Zarate was the collaborating physician throughout the time services were performed. Vesna Rodriguez PA-C [facility] Cardiac Electrophysiology Services us Anton Goodwin MD CV IMAGING F inal Result * ISTAT CHEM 8 (12/15/2024 11:34 AM CDT) [facility] SODIUM, POCT 12/16/2024 3:52 PM CDT [facility] Comment:Unable to determine. POTASSIUM, POCT 4.2 3.5 - 5.0 mmol/L 12/16/2024 3:52 PM CDT [facility] CHLORIDE, POCT 12/16/2024 3:52 PM CDT [facility] Comment:Unable to determine. CO2,TOTAL, POCT 12/16/2024 3:52 PM CDT [facility] Comment:Unable to determine. ANION GAP, POCT 12/16/2024 3:52 PM CDT [facility] Comment:Unable to calculate. GLUCOSE, POCT 12/16/2024 3:52 PM CDT [facility] Comment:Unable to determine. IONIZED CALCIUM, POCT 12/16/2024 3:52 PM CDT [facility] Comment:Unable to determine. BUN, POCT 12/16/2024 3:52 PM CDT [facility] Comment:Unable to determine. CREATININE, POCT 12/16/2024 3:52 PM CDT [facility] Comment:Unable to determine. BUN/CREAT RATIO, POCT 12/16/2024 3:52 PM CDT [facility] Comment:Unable to calculate. eGFR 12/16/2024 3:52 PM CDT [facility] Comment:Unable to calculate. HEMATOCRIT, POCT 12/16/2024 3:52 PM CDT [facility] Comment:Unable to determine. HEMOGLOBIN, POCT 12/16/2024 3:52 PM CDT [facility] Comment:Unable to determine. Blood BLOOD SPECIMEN / Unknown 12/15/2024 11:34 AM CDT 12/16/2024 3:52 PM CDT Anton Goodwin MD CHEMISTRY F inal Result [facility] [address] [place] [address], [place] * SCAN-CARDIAC STRIP (12/15/2024 12:00 AM CDT) Narrative 12/15/2024 12:00 AM CDT Ordered by an unspecified provider. us Other Clinical Staff OTHER Final Resul t * CT CARDIAC MORPHOLOGY W CV DUAL READ (12/13/2024 9:20 AM CDT) Anatomical Region Laterality Modality HEART Computed Tomogra phy Impressions 12/13/2024 11:20 AM CDT See separate radiology report for non-cardiac findings. Normal functioning 25 mm Inspiris AVR. Intact ascending aortic graft. Well-positioned Watchman device. Please see separate radiology report for review of noncardiovascular structures. FINDINGS: The aortic valve has been replaced. The surgical valve is anatomically well-positioned. The leaflet motion is normal. There is no evidence for HALT or HAM. The ascending aortic repair is intact. The [place] aorta above the graft repair is borderline at 36 x 36 mm. The left atrial appendage has been successfully excluded with a Watchman device. There is no evidence for contrast in the device or around the device. Grey Jacob MD MCJuve/alec Narrative 12/13/2024 11:20 AM CDT Results are automatically released to your [employer] account once available, in compliance with federal regulations. This means that you may see your results before your provider has had a chance to review them. Please allow 2-3 business days for your provider to comment on the results. THIS IS THE CARDIOLOGY REPORT OF A DUAL READ STUDY. READ THE SEPARATE RADIOLOGY REPORT FOR POTENTIAL INCIDENTAL FINDINGS. REPORTS MAY BE FINALIZED AT DIFFERENT TIMES. STUDY: CT CARDIAC MORPHOLOGY, 12/13/2024 STUDY PARAMETERS: Contrast used: 70 cc of Omnipaque 350; no premedications given; scan protocol is spiral; total DLP is 394; Siemens SOMATOM Force [address] INDICATIONS: Status post AVR. The patient has had an aortic valve replacement with a 25 mm Inspiris AVR, performed on 11/04/2024. Patient also had an ascending aortic repair with a 28 mm straight Gelweave graft. PERIPHERAL RISK FACTORS: Diabetes: No. SCAN QUALITY: Good. us Ketty SWENSON CT Final Res ult * CT CARDIAC MORPHOLOGY W RAD DUAL READ (12/13/2024 9:20 AM CDT) Anatomical Region Laterality Modality HEART Computed Tomogra phy 12/14/2024 9:31 AM CDT Narrative 12/14/2024 9:31 AM CDT For Patients: As a result of the Cures Act, medical imaging exams and procedure reports are released immediately into your electronic medical record. You may view this report before your referring provider. If you have questions, please contact your health care provider. THIS IS THE RADIOLOGY OVER READ REPORT OF A DUAL READ STUDY. READ THE SEPARATE CARDIOLOGY REPORT FOR CARDIOVASCULAR FINDINGS. REPORTS MAY BE FINALIZED AT DIFFERENT TIMES. COMPARISON : 05/14/2024 TECHNIQUE : Please see cardiology report for technical information. This exam is being performed in conjunction with the services provided by the [facility] ([facility]). INDICATION: Cardiac over-read. FINDINGS: Aorta: This is reported by cardiology. Mediastinum: No adenopathy. Some surrounding fluid at the aortic repair likely postoperative Pulmonary arteries: Bolus timing may limit evaluation. Visualized/opacified pulmonary arteries demonstrate no filling defects. Lungs and pleural structures: Clear with no pleural effusions or suspicious nodules. Stable tiny micronodule subpleural left upper lobe series 6, image 83. Miscellaneous: No new acute or suspicious skeletal or upper abdominal imaging abnormality. IMPRESSION : 1. See separate cardiology report for cardiac findings. Status post aortic valve repair. 2. No new significant extra cardiac imaging abnormality. Please note that all CT scans at this facility use dose modulation, iterative reconstruction, and/or weight-based dosing when appropriate to reduce radiation dose to as low as reasonably achievable. Dictated by Orestes Arellano MD @ 12/14/2024 9:31:37 AM (Electronically Signed) Procedure Note Orestes Arellano MD - 12/14/2024 For Patients: As a result of the Century Cures Act, medical imagingexams and procedure reports are released immediately into your electronicmedical record. You may view this report before your referring provider.If you have questions, please contact your health care provider. THIS IS THE RADIOLOGY OVER READ REPORT OF A DUAL READ STUDY. READ THESEPARATE CARDIOLOGY REPORT FOR CARDIOVASCULAR FINDINGS. REPORTS MAY BEFINALIZED AT DIFFERENT TIMES. COMPARISON : 05/14/2024 TECHNIQUE : Please see cardiology report for technical information. This exam is being performed in conjunction with the services provided bythe [facility] ([facility]). INDICATION: Cardiac over-read. FINDINGS: Aorta: This is reported by cardiology. Mediastinum: No adenopathy. Some surrounding fluid at the aortic repairlikely postoperative Pulmonary arteries: Bolus timing may limit evaluation. Visualized/opacified pulmonary arteriesdemonstrate no filling defects. Lungs and pleural structures: Clear with no pleural effusions orsuspicious nodules. Stable tiny micronodule subpleural left upper lobeseries 6, image 83. Miscellaneous: No new acute or suspicious skeletal or upper abdominalimaging abnormality. IMPRESSION : 1. See separate cardiology report for cardiac findings. Status post aorticvalve repair. 2. No new significant extra cardiac imaging abnormality. Please note that all CT scans at this facility use dose modulation,iterative reconstruction, and/or weight-based dosing when appropriate toreduce radiation dose to as low as reasonably achievable. Dictated by Orestes Arellano MD @ 12/14/2024 9:31:37 AM (Electronically Signed) Ketty SWENSON CT Final Res ult * CA READING EKG - NO CHARGE, COMP ONLY (11/19/2024 9:21 AM CDT) Adrien Hernandez MD PB - PROVIDER READINGS Fin al Result * (ABNORMAL) HEMOGLOBIN (11/18/2024 11:31 AM CDT) Only the most recent of10 resultswithin the time period is included. Pathologist [facility] HEMOGLOBIN 9.7(L) 13.2 - 17.1 g/dL [facility] Blood BLOOD SPECIMEN / Unknown 11/18/2024 11:31 AM CDT 11/18/2024 11:32 AM CDT Adrien Hernandez MD HEMATOLOGY Final Resu lt [employer] [facility] [address] [place] [id number], [facility] [address] [place] [phone] * PLATELET COUNT (11/17/2024 7:57 AM CDT) Only the most recent of3 resultswithin the time period is included. [facility] PLATELET COUNT 367 140 - 440 thou/cu mm 11/17/2024 8:38 AM CDT [facility] MPV 9.4 6.5 - 11.0 fL 11/17/2024 8:38 AM CDT [facility] Blood BLOOD SPECIMEN / Unknown Venipuncture / Unknown 11/17/2024 7:57 AM CDT 11/17/2024 8:26 AM CDT Jcarlos ROJAS HEMATOLOGY Sara l Result [facility] [address] [place] [address], * (ABNORMAL) WHITE BLOOD COUNT (11/17/2024 7:57 AM CDT) Pathologist [facility] WHITE BLOOD COUNT 11.3(H) 4.5 - 11.0 thou/cu mm 11/17/2024 8:38 AM CDT [facility] NRBC 0.0 % 11/17/2024 8:38 AM CDT [facility] ABS NRBC 0.0 thou /cu mm 11/17/2024 8:38 AM CDT [facility] Blood BLOOD SPECIMEN / Unknown Venipuncture / Unknown 11/17/2024 7:57 AM CDT 11/17/2024 8:26 AM CDT Jcarlos ROJAS HEMATOLOGY Sara l Result Performing Organization Address City/[facility]/ZIP Co de Phone Number [facility] [address] [place] [address], [place] * SODIUM (11/17/2024 7:57 AM CDT) Only the most recent of3 resultswithin the time period is included. SODIUM 137 136 - 145 mmol/L 11/17/2024 8:54 AM CDT [facility] Blood BLOOD SPECIMEN / Unknown Venipuncture / Unknown 11/17/2024 7:57 AM CDT 11/17/2024 8:26 AM CDT Jcarlos ROJAS CHEMISTRY Sara l Result Performing Organization Address City/[facility]/ZIP Co de Phone Number [facility] [address] [place] [address], [place] * POTASSIUM (11/17/2024 7:57 AM CDT) Only the most recent of6 resultswithin the time period is included. POTASSIUM 4.6 3.5 - 5.1 mmol/L 11/17/2024 8:54 AM CDT [facility] Blood BLOOD SPECIMEN / Unknown Venipuncture / Unknown 11/17/2024 7:57 AM CDT 11/17/2024 8:26 AM CDT Jcarlos Beckhamjudy [facility] Sara l Result Performing Organization Address City/[facility] Co de Phone Number [facility] [address] [place] [address], [place] * (ABNORMAL) CREATININE (11/17/2024 7:57 AM CDT) Only the most recent of3 resultswithin the time period is included. eGFR 65(L) >90 mL/min/1.7 3m2 11/17/2024 8:54 AM CDT [facility] Comment:As of 2021, eG FR is calculated by the CKD-EPI creatinine equation without race adjustment. eGFR can be influenced by muscle mass, exercise, and diet. The reported eGFR is an estimation only and is only applicable if the renal function is stable. CREATININE 1.16 0.70 - 1.20 mg/dL 11/17/2024 8:54 AM CDT [facility] Blood BLOOD SPECIMEN / Unknown Venipuncture / Unknown 11/17/2024 7:57 AM CDT 11/17/2024 8:26 AM CDT Jcarlos Beckhamjudy [facility] Sara l Result Performing Organization Address [facility] Co de Phone Number [facility] [address] [address], [place] * MAGNESIUM (11/17/2024 7:57 AM CDT) Only the most recent of12 resultswithin the time period is included. MAGNESIUM 2.0 1.6 - 2.4 mg/dL 11/17/2024 8:54 AM CDT [facility] Blood BLOOD SPECIMEN / Unknown Venipuncture / Unknown 11/17/2024 7:57 AM CDT 11/17/2024 8:26 AM CDT Jcarlos Beckhamjudy [facility] Sara l Result [facility] [address] [place] [address], [place] * SCAN-CARDIAC STRIP (11/17/2024 7:49 AM CDT) us Scanner OTHER Final Result * ZIO PATCH XT - weekly to monthly symptoms. (11/17/2024) 11/17/2024 Narrative Dakotah Pimentel MD - 11/26/2024 12:00 AM CDT Atrial fib throughout and average HR 93 bpm. Please see scan document for full report. Signed By Dakotah Pimentel MD Procedure Note Dakotah Pimentel MD - 11/26/2024 Atrial fib throughout and average HR 93 bpm. Please see scan document for full report. Signed By Dakotah Pimentel MD us Zenobia SWENSON [facility] ORD Fin al Result * SCAN-CARDIAC STRIP (11/16/2024 7:47 PM CDT) us Scanner OTHER Final Result * (ABNORMAL) CBC WITH AUTO DIFFERENTIAL (11/16/2024 1:27 PM CDT) Pathologist [facility] WHITE BLOOD COUNT 10.0 4.5 - 11.0 thou/cu mm 11/16/2024 2:21 PM CDT [facility] RED BLOOD COUNT 3.36(L) 4.30 - 5.90 mil/cu mm 11/16/2024 2:21 PM CDT [facility] HEMOGLOBIN 10.5(L) 13.5 - 17.5 g/dL 11/16/2024 2:21 PM CDT [facility] HEMATOCRIT 33.0(L) 37.0 - 53.0 % 11/16/2024 2:21 PM CDT [facility] MCV 98 80 - 100 fL 11/16/2024 2:21 PM CDT [facility] MCH 31.3 26.0 - 34.0 pg 11/16/2024 2:21 PM CDT [facility] MCHC 31.8(L) 32.0 - 36.0 g/dL 11/16/2024 2:21 PM [facility] RDW 15.9(H) 11.5 - 15.5 % 11/16/2024 2:21 PM [facility] PLATELET COUNT 413 140 - 440 thou/cu mm 11/16/2024 2:21 PM T [facility] MPV 8.8 6.5 - 11.0 fL 11/16/2024 2:21 PM [facility] NRBC 0.0 % 11/16/2024 2:21 PM [facility] ABS NRBC 0.0 thou /cu mm 11/16/2024 2:21 PM [facility] % NEUT 80.5 % 11/16/2024 2:21 PM [facility] % LYMPH 5.4 % 11/16/2024 2:21 PM [facility] % MONO 8.2 % 11/16/2024 2:21 PM [facility] % EOS 4.5 % 11/16/2024 2:21 PM [facility] % BASO 0.4 % 11/16/2024 2:21 PM T [facility] % IMMATURE GRAN (METAS,MYELOS,CA OS) 1.0 % 11/16/2024 2:21 PM T [facility] ABSOLUTE NEUTROPHILS 8.0(H) 1.7 - 7.0 thou/cu mm 11/16/2024 2:21 PM T [facility] ABSOLUTE LYMPHOCYTES 0.5(L) 0.9 - 2.9 thou/cu mm 11/16/2024 2:21 PM CDT [facility] ABSOLUTE MONOCYTES 0.8 <0.9 thou/cu mm 11/16/2024 2:21 PM CDT [facility] ABSOLUTE EOSINOPHILS 0.5(H) <0.5 thou/cu mm 11/16/2024 2:21 PM CDT [facility] ABSOLUTE BASOPHILS 0.0 <0.3 thou/cu mm 11/16/2024 2:21 PM CDT [facility] ABSOLUTE IMMATURE GRANULOCYTES(MET ,MYELOS,PROS) 0.1 <0.3 thou/cu mm 11/16/2024 2:21 PM CDT [facility] Blood BLOOD SPECIMEN / Unknown Non-Lab Venipuncture / Unknown 11/16/2024 1:27 PM CDT 11/16/2024 1:33 PM CDT Marcellus Martínez MD HEMATOLOGY Final R esult Performing Organization Address City/[facility]/ZIP Co de Phone Number [facility] [address] [place] [address], * (ABNORMAL) PLATELET ESTIMATE (11/16/2024 1:27 PM CDT) Only the most recent of2 resultswithin the time period is included. [facility] PLATELET ESTIMATE Platelets are clumped and appear adequate in number(A) Adequate, No estimate 11/16/2024 2:20 PM CDT [facility] Blood BLOOD SPECIMEN / Unknown Non-Lab Venipuncture / Unknown 11/16/2024 1:27 PM CDT 11/16/2024 1:33 PM CDT Marcellus Martínez MD HEMATOLOGY Final R esult Performing Organization Address City/[facility]/ZIP Co de Phone Number [facility] [address] [place] [address], * (ABNORMAL) BASIC METABOLIC PANEL (11/16/2024 1:27 PM CDT) Only the most recent of7 resultswithin the time period is included. [facility] SODIUM 138 136 - 145 mmol/L 11/16/2024 2:04 PM CDT [facility] POTASSIUM 4.4 3.5 - 5.1 mmol/L 11/16/2024 2:04 PM CDT [facility] CHLORIDE 101 98 - 107 mmol/L 11/16/2024 2:04 PM CDT [facility] CO2,TOTAL 23 22 - 29 mmol/L 11/16/2024 2:04 PM CDT [facility] ANION GAP 14 5 - 18 11/16/2024 2:04 PM CDT [facility] GLUCOSE 97 70 - 99 mg/dL 11/16/2024 2:04 PM T [facility] CALCIUM 9.3 8.8 - 10.4 mg/dL 11/16/2024 2:04 PM T [facility] Comment: Reference ranges for this test were updated on 05/11/2024 to reflect our healthy population more accurately. Reference range changes are not retroactively applied to results, but previous results using the same methodology can be interpreted in the context of the new reference range. BUN 12 8 - 23 mg/dL 11/16/2024 2:04 PM T [facility] CREATININE 1.11 0.70 - 1.20 mg/dL 11/16/2024 2:04 PM T [facility] BUN/CREAT RATIO 11 10 - 20 2:04 PM T [facility] eGFR 68(L) >90 mL/min/1.7 3m2 11/16/2024 2:04 PM T [facility] Comment:As of 2021, eG FR is calculated by the CKD-EPI creatinine equation without race adjustment. eGFR can be influenced by muscle mass, exercise, and diet. The reported eGFR is an estimation only and is only applicable if the renal function is stable. Blood BLOOD SPECIMEN / Unknown Non-Lab Venipuncture / Unknown 11/16/2024 1:27 PM CDT 11/16/2024 1:33 PM CDT Marcellus Martínez MD CHEMISTRY Final R esult [facility] [address] [place] [address], * SCAN-CARDIAC STRIP (11/11/2024 7:16 AM CDT) us Scanner OTHER Final Result * ZIO PATCH AT (MCT) - high risk arrhythmia requires central monitoring. Cardiology and ED use (11/11/2024) 11/11/2024 Narrative Dakotah Pimentel MD - 11/26/2024 12:00 AM CDT NSR. Atrial fib for 33% of the time with average HR 104 bpm in atrial fib. Please see scan document for full report. Signed By Dakotah Pimentel MD Procedure Note Dakotah Pimentel MD - 11/26/2024 NSR. Atrial fib for 33% of the time with average HR 104 bpm in atrialfib. Please see scan document for full report. Signed By Dakotah Pimentel MD us Zenobia [facility] ORD Fin al Result * SCAN-CARDIAC STRIP (11/10/2024 10:07 PM CDT) us Scanner OTHER Final Result * ECHO PABLO WO CONTRAST W COLOR W LTD DOPPLER (11/10/2024 9:11 AM CDT) Anatomical Region Laterality Modality Ultrasound 11/10/2024 8:24 AM CDT Narrative 11/10/2024 9:28 AM CDT TRANSESOPHAGEAL ECHOCARDIOGRAM SHANICE RUBIN : 1945 79 years Study Date: 11/10/2024 8:24:07 AM Gender: M BP: 150/82 mmHg Height: 183.00 cm BSA: 2.15 m Weight: 93.00 kg Tech: [facility] Referring MD: FREEMAN ENGEL Site: [facility] Reading Location: [facility] Patient Location: Inpatient. Procedure: PABLO, Limited 2D and Color Doppler. Indication for study: DCCV Cardiac Rhythm: Atrial fibrillation.Study quality: Good. Final Impressions: 1. Occluder device present in the left atrial appendage. No thrombus on the atrial surface of the device. No significant peridevice flow. 2. Normal left ventricular size, normal global systolic function. 3. The aortic valve is a functioning 25 mm Inspiris bioprosthesis AVR, no regurgitation. 4. No pericardial effusion. Procedure comments: Indications, goals, risks and alternatives of the procedure were discussed with the patient and informed consent was obtained. The patient received sedation of intravenous Propofol and general anesthesia. See procedural record for anesthesia details. Prior to performance of procedure, time out was called to accurately identify the patient and procedure. The Plickerst probe was passed without difficulty. PABLO, Limited 2D and Color Doppler was performed. The patient developed no apparent complications during the procedure. Estimated Blood Loss: 0 ml Chamber Sizes and Function Normal left ventricular size, normal global systolic function. No resting regional wall motion abnormality visualized. Left atrial size is normal. The left atrial appendage occluder device is visualized. Not well visualized left atrial appendage flow velocities. Right ventricular cavity size is normal, global systolic RV function is normal. The right atrium is normal. The pulmonary artery is not well visualized. The sinus of Valsalva is normal sized. The ascending aorta is normal sized (status post 28mm Gelweave graft). Aortic arch is not well visualized. Descending aorta is normal sized with mild plaque visualized. Valves, RV Pressures and Diastolic Function The aortic valve is functioning 25 mm Inspiris bioprosthesis replacement, not evaluated for stenosis and no regurgitation. The mitral valve is normal in structure, trace mitral regurgitation. The tricuspid valve is normal in structure, mild tricuspid regurgitation. The pulmonic valve is not well visualized. No pulmonary regurgitation. Pulmonary veins show a normal flow pattern. Masses, Effusion, Shunts There is no pericardial effusion. Atrial septum is intact. Agitated saline injection not done. MEASUREMENTS AND CALCULATIONS 2-D Measurements and LV Function: Ao Sinus ULN 4.2 cm * HR 87 bpm Asc Ao ULN 4.4 cm * * Input BSA outside of range, reported values correspond to BSA = 2.1 . This study was interpreted by an [facility] accredited facility. Final Procedure Note Ramiro Quinteros MD - 11/10/2024 TRANSESOPHAGEAL ECHOCARDIOGRAM SHANICE RUBIN : 1945 79 years Study Date: 11/10/2024 8:24:07 AM Gender: M BP: 150/82 mmHg Height: 183.00 cm BSA: 2.15 m Weight: 93.00 kg Tech: [facility] Referring MD: FREEMAN ENGEL Site: [facility] Reading Location: [facility] Patient Location: Inpatient. Procedure: PABLO, Limited 2D and Color Doppler. Indication for study: DCCV Cardiac Rhythm: Atrial fibrillation.Study quality: Good. Final Impressions: 1. Occluder device present in the left atrial appendage. No thrombus onthe atrial surface of the device. No significant peridevice flow. 2. Normal left ventricular size, normal global systolic function. 3. The aortic valve is a functioning 25 mm Inspiris bioprosthesis AVR, noregurgitation. 4. No pericardial effusion. Procedure comments: Indications, goals, risks and alternatives of theprocedure were discussed with the patient and informed consent wasobtained. The patient received sedation of intravenous Propofol andgeneral anesthesia. See procedural record for anesthesia details. Prior toperformance of procedure, time out was called to accurately identify thepatient and procedure. The Juliett probe was passed without difficulty.PABLO, Limited 2D and Color Doppler was performed. The patient developed noapparent complications during the procedure. Estimated Blood Loss: 0 ml Chamber Sizes and Function Normal left ventricular size, normal global systolic function. No restingregional wall motion abnormality visualized. Left atrial size is normal.The left atrial appendage occluder device is visualized. Not wellvisualized left atrial appendage flow velocities. Right ventricular cavitysize is normal, global systolic RV function is normal. The right atrium isnormal. The pulmonary artery is not well visualized. The sinus of Valsalvais normal sized. The ascending aorta is normal sized (status post 28mmGelweave graft). Aortic arch is not well visualized. Descending aorta isnormal sized with mild plaque visualized. Valves, RV Pressures and Diastolic Function The aortic valve is functioning 25 mm Inspiris bioprosthesis replacement,not evaluated for stenosis and no regurgitation. The mitral valve isnormal in structure, trace mitral regurgitation. The tricuspid valve isnormal in structure, mild tricuspid regurgitation. The pulmonic valve isnot well visualized. No pulmonary regurgitation. Pulmonary veins show anormal flow pattern. Masses, Effusion, Shunts There is no pericardial effusion. Atrial septum is intact. Agitated salineinjection not done. MEASUREMENTS AND CALCULATIONS 2-D Measurements and LV Function: Ao Sinus ULN 4.2 cm * HR87 bpm Asc Ao ULN 4.4 cm * * Input BSA outside of range, reported values correspond to BSA = 2.1 . This study was interpreted by an [facility] accredited facility. Final us Freeman Engel [employer] OPERATOR ECHO ORD Final Re sult * SCAN-CARDIAC STRIP (11/10/2024 7:37 AM CDT) us Scanner OTHER Final Result * SCAN-CARDIAC STRIP (11/09/2024 10:17 PM CDT) us Scanner OTHER Final Result * (ABNORMAL) GLUCOSE METER (11/09/2024 12:55 PM CDT) Only the most recent of25 resultswithin the time period is included. [facility] Signature GLUCOSE METER 144(H) 65 - 100 mg/dL 11/09/2024 12:56 PM CDT [facility]ENTERBioAnalytical SystemsSENT[facility] Blood BLOOD SPECIMEN / Unknown 11/09/2024 12:55 PM CDT 11/09/2024 12:56 PM CDT us Florencio Rhodes MD CHEMISTRY Final Result [facility] REVShare [facility] [address] [place] [address], [place] * XR CHEST 2 VIEWS PA AND LATERAL (11/09/2024 9:19 AM CDT) Only the most recent of2 resultswithin the time period is included. Anatomical Region Laterality Modality CHEST, THORAX, Lung, HEART Digit al Radiography 11/09/2024 1:06 PM CDT Narrative 11/09/2024 1:06 PM CDT For Patients: As a result of the Cures Act, medical imaging exams and procedure reports are released immediately into your electronic medical record. You may view this report before your referring provider. If you have questions, please contact your health care provider. Indication: Pneumothorax. Technique: Chest 2 views. Comparison: 11/08/2024. Findings/Impression: Cardiovascular and mediastinum: Heart size is normal. Unremarkable mediastinum. Lungs and pleural spaces: Faint right basilar opacity could represent a combination of pleural effusion, atelectasis and/or infiltrate. Remainder of the lungs and pleural spaces are clear. No pneumothorax. Bones and soft tissues: No significant findings. Dictated by Tai Vargas MD @ Nov 09 2024 1:06PM (Electronically Signed) [email or web address] Procedure Note Tai Vargas MD - 11/09/2024 For Patients: As a result of the Cures Act, medical imagingexams and procedure reports are released immediately into your electronicmedical record. You may view this report before your referring provider.If you have questions, please contact your health care provider. Indication: Pneumothorax. Technique: Chest 2 views. Comparison: 11/08/2024. Findings/Impression: Cardiovascular and mediastinum: Heart size is normal. Unremarkablemediastinum. Lungs and pleural spaces: Faint right basilar opacity could represent acombination of pleural effusion, atelectasis and/or infiltrate. Remainderof the lungs and pleural spaces are clear. No pneumothorax. Bones and soft tissues: No significant findings. Dictated by Tai Vargas MD @ Nov 09 2024 1:06PM (Electronically Signed) [email or web address] us Ketty [facility] Final Res ult * SCAN-CARDIAC STRIP (11/09/2024 8:00 AM CDT) us Scanner OTHER Final Result * (ABNORMAL) CBC W PLT NO DIFF (11/09/2024 7:10 AM CDT) Only the most recent of6 resultswithin the time period is included. WHITE BLOOD COUNT 8.3 4.5 - 11.0 thou/cu mm 11/09/2024 7:42 AM CDT [facility] RED BLOOD COUNT 2.35(L) 4.30 - 5.90 mil/cu mm 11/09/2024 7:42 AM CDT [facility] HEMOGLOBIN 7.2(L) 13.5 - 17.5 g/dL 11/09/2024 7:42 AM T [facility] HEMATOCRIT 22.6(L) 37.0 - 53.0 % 11/09/2024 7:42 AM CDT [facility] MCV 96 80 - 100 fL 11/09/2024 7:42 AM CDT [facility] MCH 30.6 26.0 - 34.0 pg 11/09/2024 7:42 AM CDT [facility] MCHC 31.9(L) 32.0 - 36.0 g/dL 11/09/2024 7:42 AM CDT [facility] RDW 14.4 11.5 - 15.5 % 11/09/2024 7:42 AM CDT [facility] PLATELET COUNT 158 140 - 440 thou/cu mm 11/09/2024 7:42 AM CDT [facility] MPV 10.1 6.5 - 11.0 fL 11/09/2024 7:42 AM CDT [facility] NRBC 0.8 % 11/09/2024 7:42 AM CDT [facility] ABS NRBC 0.1 thou /cu mm 11/09/2024 7:42 AM T [facility] Blood BLOOD SPECIMEN / Unknown Venipuncture / Unknown 11/09/2024 7:10 AM CDT 11/09/2024 7:34 AM CDT us Yuliya Garcia NP HEMATOLOGY Final Result [facility] [address] [place] [address], * SCAN-CARDIAC STRIP (11/08/2024 9:59 PM CDT) us Scanner OTHER Final Result * XR CHEST 1 VIEW PORTABLE (11/08/2024 11:15 AM CDT) Only the most recent of3 resultswithin the time period is included. Anatomical Region Laterality Modality HEART, THORAX, CHEST Digital Rad iography 11/08/2024 12:0 2 PM CDT Impressions 11/08/2024 12:02 PM CDT 1. Small right apical pneumothorax. 2. Small right-sided pleural effusion. Mild bibasilar atelectasis. Dictated by Ousmane Bustillos MD @ Nov 08 2024 12:02PM (Electronically Signed) [email or web address] Narrative 11/08/2024 12:02 PM CDT For Patients: As a result of the Cures Act, medical imaging exams and procedure reports are released immediately into your electronic medical record. You may view this report before your referring provider. If you have questions, please contact your health care provider. INDICATION: Chest tube pulled. COMPARISON: Chest x-ray dated 05 Nov 2024. FINDINGS: Two portable chest x-rays show median sternotomy changes. Normal cardiac silhouette. The lungs show a small right-sided pleural effusion. Mild bibasilar atelectasis. Small right apical pneumothorax. Procedure Note Ousmane Bustillos MD - 11/08/2024 For Patients: As a result of the Cures Act, medical imagingexams and procedure reports are released immediately into your electronicmedical record. You may view this report before your referring provider.If you have questions, please contact your health care provider. INDICATION: Chest tube pulled. COMPARISON: Chest x-ray dated 05 Nov 2024. FINDINGS: Two portable chest x-rays show median sternotomy changes. Normal cardiacsilhouette. The lungs show a small right-sided pleural effusion. Mild bibasilaratelectasis. Small right apical pneumothorax. IMPRESSION: 1. Small right apical pneumothorax. 2. Small right-sided pleural effusion. Mild bibasilar atelectasis. Dictated by Ousmane Bustillos MD @ Nov 08 2024 12:02PM (Electronically Signed) [email or web address] us Yuliya Garcia NP GENERAL IMAGING Final Result * XR ABDOMEN 1 VIEW PORTABLE (11/08/2024 11:15 AM CDT) Anatomical Region Laterality Modality Abdomen Digital Radiogra phy 11/08/2024 11:5 9 AM CDT Impressions 11/08/2024 11:59 AM CDT Nonspecific nonobstructive bowel gas pattern. Dictated by Ousmane Bustillos MD @ Nov 08 2024 11:59AM (Electronically Signed) [email or web address] Narrative 11/08/2024 11:59 AM CDT For Patients: As a result of the Cures Act, medical imaging exams and procedure reports are released immediately into your electronic medical record. You may view this report before your referring provider. If you have questions, please contact your health care provider. INDICATION: Abnormal bowel function. FINDINGS: A single portable view of the abdomen shows no dilated loops of bowel. No evidence of free intraperitoneal air. No other bony or soft tissue abnormalities identified. Procedure Note Ousmane Bustillos MD - 11/08/2024 For Patients: As a result of the s Act, medical imagingexams and procedure reports are released immediately into your electronicmedical record. You may view this report before your referring provider.If you have questions, please contact your health care provider. INDICATION: Abnormal bowel function. FINDINGS: A single portable view of the abdomen shows no dilated loops of bowel. Noevidence of free intraperitoneal air. No other bony or soft tissue abnormalities identified. IMPRESSION: Nonspecific nonobstructive bowel gas pattern. Dictated by Ousmane Bustillos MD @ Nov 08 2024 11:59AM (Electronically Signed) [email or web address] us Yuliya Garcia NP GENERAL IMAGING Final Result * SCAN-CARDIAC STRIP (11/08/2024 7:28 AM CDT) us Scanner OTHER Final Result * SCAN-CARDIAC STRIP (11/07/2024 10:35 PM CDT) us Scanner OTHER Final Result * SCAN-CARDIAC STRIP (11/07/2024 7:08 PM CDT) us Scanner OTHER Final Result * (ABNORMAL) Protime-INR (11/07/2024 4:51 AM CDT) Only the most recent of5 resultswithin the time period is included. INR 1.7(H) <1.3 11/07/2024 5:10 AM CDT [facility] PROTIME 19.6(H) 10.6 - 12.4 sec 11/07/2024 5:10 AM CDT [facility] Blood BLOOD SPECIMEN / Unknown Non-Lab Venipuncture / Unknown 11/07/2024 4:51 AM CDT 11/07/2024 4:58 AM CDT Narrative [facility] - 11/07/2024 5:10 AM CDT Therapeutic Range 2.0-3.0 for most anticoagulated patients 2.5-3.5 or 4.0 for high risk patients The INR is only used for patients on stable oral anticoagulant therapy. It makes no significant contribution to the diagnosis or treatment of patients whose Protime is prolonged for other reasons. INR results are increased when heparin levels exceed 1.0 U/mL, which corresponds to an aPTT >125 seconds if the patient is on UFH. us Florencio Rhodes MD HEMATOLOGY Final Result [facility] [address] [place] [address], * SCAN-CARDIAC STRIP (11/06/2024 9:52 PM CDT) us Scanner OTHER Final Result * SCAN-CARDIAC STRIP (11/06/2024 8:17 PM CDT) us Scanner OTHER Final Result * (ABNORMAL) SPUTUM CULTURE, STAIN (11/06/2024 5:03 PM CDT) CULTURE RESULT(A) 11/08/2024 7:54 AM CDT [facility] CULTURE 1+ Gram negative bacilli 11/08/2024 7:54 AM CDT [facility] Comment:No Further Workup Pe nding CULTURE 3+ Usual Stacy 11/08/2024 7:54 AM CDT [facility] GRAM STAIN 1+ PMNs 11/08/2024 7:54 AM CDT [facility] GRAM STAIN 1+ Epithelial cells 11/08/2024 7:54 AM CDT [facility] GRAM STAIN No RBCs 11/08/2024 7:54 AM CDT [facility] GRAM STAIN 3+ Gram Positive Cocci 11/08/2024 7:54 AM CDT [facility] GRAM STAIN 2+ Gram Positive Bacilli 11/08/2024 7:54 AM CDT [facility] GRAM STAIN 2+ Gram Negative Bacilli 11/08/2024 7:54 AM CDT [facility] Sputum COUGHED SPUTUM SPECIMEN / Unknown Non-Blood / Unknown 11/06/2024 5:03 PM CDT 11/06/2024 5:36 PM CDT Neha [facility] Final Re sult [facility] [address] [place] [address], * LACTATE VENOUS (11/06/2024 12:40 PM CDT) Only the most recent of6 resultswithin the time period is included. LACTATE,VENOUS 1.9 0.5 - 2.0 mmol/L 11/06/2024 1:16 PM CDT [facility] Blood BLOOD SPECIMEN / Unknown Non-Lab Venipuncture / Unknown 11/06/2024 12:40 PM CDT 11/06/2024 12:47 PM CDT Neha [facility] Final Re sult [facility] [address] [place] [address], [place] * ECHO TTE LIMITED WO CONTRAST W COLOR W LTD DOPPLER (11/06/2024 10:59 AM CDT) AORTIC VALVE MEAN PG 9 mmHg EJECTION FRACTION 62 % Anatomical Region Laterality Modality Ultrasound 11/06/2024 10:2 1 AM CDT Narrative 11/06/2024 11:55 AM CDT ECHOCARDIOGRAM SHANICE RUBIN : 1945 79 years Study Date: 11/06/2024 10:21:20 AM Gender: M BP: 136/73 mmHg Height: 182.88 cm BSA: 2.14 m Weight: 92.08 kg Tech: Referring MD: ALEKSANDR VILLEGAS Site: [facility] Reading Location: [facility] Patient Location: Inpatient. Procedure: Limited 2D , Color Doppler and Limited Spectral Doppler. Indication for study: CHF, s/p AVR Cardiac Rhythm: Regular.Study quality: Fair. Final Impressions: Limited Echocardiogram performed 1. Normal global systolic function, calculated EF of 62 %. 2. Right ventricular cavity size is normal, global systolic RV function is mildly reduced. 3. The mitral valve is sclerotic, mild to moderate mitral regurgitation. 4. The aortic valve is s/p BioAVR 25mm Inspiris, no stenosis and no regurgitation. There is no paravalvular regurgitation. 5. s/p 28mm Asc ao Vascutek Gelweave conduit 6. The inferior vena cava is dilated, respiratory size variation less than 50%. Chamber Sizes and Function Not well visualized left ventricular size, not well visualized wall thickness, normal global systolic function, calculated EF of 62 %. Right ventricular cavity size is normal, global systolic RV function is mildly reduced. The ascending aorta is normal sized. Valves, RV Pressures and Diastolic Function The aortic valve is s/p BioAVR 25mm Inspiris, no stenosis and no regurgitation. There is no paravalvular reguritation. The mitral valve is sclerotic, mild to moderate mitral regurgitation. The tricuspid valve is normal in structure, mild tricuspid regurgitation. The pulmonic valve is normal. No pulmonic regurgitation is present on color flow. Masses, Effusion, Shunts There is no pericardial effusion. The inferior vena cava is dilated, respiratory size variation less than 50%. MEASUREMENTS AND CALCULATIONS 2-D Measurements and LV Function: Ao Sinus ULN 4.2 cm * Planimetered EF 62 % Asc Ao 3.0 cm LVOT diameter 2.0 cm Asc Ao ULN 4.4 cm * HR 60 bpm * Input BSA outside of range, reported values correspond RV Basal Diam 4.0 cm to BSA = 2.1 Aortic Valve: Vmax 2.0 m/s HOLGER (V) 2.39 cm VTI 0.33 m HOLGER (I) 2.18 cm LVOT V max 1.6 m/s Max PG 17 mmHg LVOT VTI 0.23 m Mean PG 9 mmHg SV 71 ml Dim Index 0.69 SV index 33 ml/m CO 4.3 l/min CI 2.0 l/min/m Tricuspid Valve and estimated PA pressures: TAPSE 0.6 cm . This study was interpreted by an [facility] accredited facility. Final Procedure Note Paras Oro MD - 11/06/2024 ECHOCARDIOGRAM SHANICE RUBIN : 1945 79 years Study Date: 11/06/2024 10:21:20 AM Gender: M BP: 136/73 mmHg Height: 182.88 cm BSA: 2.14 m Weight: 92.08 kg Tech: Referring MD: ALEKSANDR VILLEGAS Site: [facility] Reading Location: [facility] Patient Location: Inpatient. Procedure: Limited 2D , Color Doppler and Limited Spectral Doppler. Indication for study: CHF, s/p AVR Cardiac Rhythm: Regular.Study quality: Fair. Final Impressions: Limited Echocardiogram performed 1. Normal global systolic function, calculated EF of 62 %. 2. Right ventricular cavity size is normal, global systolic RV functionis mildly reduced. 3. The mitral valve is sclerotic, mild to moderate mitralregurgitation. 4. The aortic valve is s/p BioAVR 25mm Inspiris, no stenosis and noregurgitation. There is no paravalvular regurgitation. 5. s/p 28mm Asc ao Vascutek Gelweave conduit 6. The inferior vena cava is dilated, respiratory size variation lessthan 50%. Chamber Sizes and Function Not well visualized left ventricular size, not well visualized wallthickness, normal global systolic function, calculated EF of 62 %. Rightventricular cavity size is normal, global systolic RV function is mildlyreduced. The ascending aorta is normal sized. Valves, RV Pressures and Diastolic Function The aortic valve is s/p BioAVR 25mm Inspiris, no stenosis and noregurgitation. There is no paravalvular reguritation. The mitral valve issclerotic, mild to moderate mitral regurgitation. The tricuspid valve isnormal in structure, mild tricuspid regurgitation. The pulmonic valve isnormal. No pulmonic regurgitation is present on color flow. Masses, Effusion, Shunts There is no pericardial effusion. The inferior vena cava is dilated,respiratory size variation less than 50%. MEASUREMENTS AND CALCULATIONS 2-D Measurements and LV Function: Ao Sinus ULN 4.2 cm * Planimetered EF62 % Asc Ao 3.0 cm LVOT diameter2.0 cm Asc Ao ULN 4.4 cm * HR60 bpm * Input BSA outside of range, reported values correspond RV Basal Diam4.0 cm to BSA = 2.1 Aortic Valve: Vmax 2.0 m/s HOLGER (V) 2.39 cm VTI 0.33 m HOLGER (I) 2.18 cm LVOT V max 1.6 m/s Max PG 17 mmHg LVOT VTI 0.23 m Mean PG 9 mmHg SV 71 ml Dim Index 0.69 SV index 33 ml/m CO 4.3 l/min CI 2.0 l/min/m Tricuspid Valve and estimated PA pressures: TAPSE 0.6 cm . This study was interpreted by an IAC accredited facility. Final us Aleksandr Villegas MD ECHO ORD Final Result * (ABNORMAL) O2 SATURATION,MEASURED (11/06/2024 5:31 AM CDT) Only the most recent of5 resultswithin the time period is included. O2 SATURATION,FRANKLYN SURED 57 % 11/06/2024 5:49 AM CDT [facility] HEMOGLOBIN,BLO OD GAS 8.1(L) 13.5 - 17.5 g/dL 11/06/2024 5:49 AM CDT [facility] SOURCE, O2M Venous 11/06/2024 5:49 AM CDT [facility] Blood BLOOD SPECIMEN / Unknown Non-Lab Venipuncture / Unknown 11/06/2024 5:31 AM CDT 11/06/2024 5:44 AM CDT Narrative [facility] - 11/06/2024 5:49 AM CDT Reference Range for: Arterial Source (94-98) Non-Arterial Source (70-75) us Paras Arizmendi MD CHEMISTRY Final R esult [facility] [address] [place] [address], * SCAN-CARDIAC STRIP (11/06/2024 4:49 AM CDT) us Scanner OTHER Final Result * SCAN-CARDIAC STRIP (11/06/2024 4:49 AM CDT) us Scanner OTHER Final Result * (ABNORMAL) PROCALCITONIN (11/06/2024 4:18 AM CDT) Only the most recent of3 resultswithin the time period is included. PROCALCITONIN 0.82(H) ng/ml 11/06/2024 5:19 AM CDT [facility] Blood BLOOD SPECIMEN / Unknown Non-Lab Venipuncture / Unknown 11/06/2024 4:18 AM CDT 11/06/2024 4:41 AM CDT [facility]ORAT[facility]-CENTRAL LABORATORY - 11/06/2024 5:19 AM CDT Procalcitonin for initial assessment of Lower Respiratory Tract Infection: Results Interpretation <0.10 ng/mL Antibiotic therapy strongly discoraged. Indicates absent of bacterial infection. * 0.10 - 0.25 ng/mL Antibiotic therapy discouraged. Bacterial infection unlikely. * 0.26 - 0.50 ng/mL Antibiotic therapy encouraged. Bacterial infection possible. >0.50 ng/mL Antibiotic therapy strongly encouraged. Suggestive of presence of bacterial infection. *Antibiotic therapy should be considered regardless of PCT result if the patient is clinically unstable, is at high risk for adverse outcome, has strong evidence of bacterial pathogen, or the clinical context indicates antibiotic therapy is warranted. If antibiotics are withheld, reassess if symptoms persist/worsen and/or repeat PCT measurement within 6-24 hours. In order to assess treatment success and to support a decision to discontinue antibiotic therapy, follow up samples should be tested once every 1-2 days, based upon physician discretion taking into account patient's evolution and progress. Procalcitonin for initial assessment of severe sepsis risk: Results Interpretation <0.5 ng/ml A PCT level below 0.5 ng/ml on the first day of ICU admission is associated with a low risk for progression to severe sepsis and/or septic shock. > 2.0 ng/mL A PCT level above 2.0 ng/mL on the first day of ICU admission is associated with a high risk for progression to severe sepsis and/or septic shock. Note: Concentrations < 0.5 ng/mL do not exclude an infection, on account of localized infections (without systemic signs) which can be associated with such low concentrations, or a systemic infection in its initial stages(< 6 hours). Furthermore, increased procalcitonin can occur without infection. PCT concentrations between 0.5 and 2.0 ng/mL should be interpreted taking into account the patient's history. It is recommended to retest PCT within 6-24 hours if any concentrations < 2 ng/mL are obtained. Neha SWENSON SEND OUTS Final Re sult [facility] [address] [place] [id number], [place] * CALCIUM IONIZED HOSPITAL DRAW ONLY (11/06/2024 4:18 AM CDT) Only the most recent of4 resultswithin the time period is included. CALCIUM,IONIZE D 1.20 1.15 - 1.27 mmol/L 11/06/2024 4:49 AM CDT [facility] Blood BLOOD SPECIMEN / Unknown Non-Lab Venipuncture / Unknown 11/06/2024 4:18 AM CDT 11/06/2024 4:40 AM CDT Paras Arizmendi MD CHEMISTRY Final R esult [facility] [address] [place] [address], [place] * (ABNORMAL) HEPATIC FUNCTION PANEL (11/06/2024 4:18 AM CDT) Only the most recent of2 resultswithin the time period is included. ALBUMIN 3.4(L) 4.0 - 4.9 g/dL 11/06/2024 6:04 AM CDT [facility] PROTEIN,TOTAL 5.5(L) 6.0 - 8.0 g/dL 11/06/2024 6:04 AM CDT [facility] BILIRUBIN,TOTAL 0.9 0.0 - 1.2 mg/dL 11/06/2024 6:04 AM CDT [facility] BILIRUBIN,DIRECT 0.5(H) 0.0 - 0.2 mg/dL 11/06/2024 6:04 AM CDT [facility] BILIRUBIN,INDIRE CT 0.4 0.2 - 0.8 mg/dL 11/06/2024 6:04 AM CDT [facility] ALK PHOSPHATASE 51 40 - 129 IU/L 11/06/2024 6:04 AM CDT [facility] ALT (SGPT) 103(H) 10 - 50 IU/L 11/06/2024 6:04 AM CDT [facility] AST (SGOT) 119(H) 10 - 50 IU/L 11/06/2024 6:04 AM CDT [facility] Blood BLOOD SPECIMEN / Unknown Non-Lab Venipuncture / Unknown 11/06/2024 4:18 AM CDT 11/06/2024 4:41 AM CDT Neha SWENSON CHEMISTRY Final Re sult Performing Organization Address City/[facility]/ZIP Co de Phone Number [facility] [address] [place] [address], * BLOOD CULTURE (11/05/2024 9:15 PM CDT) Only the most recent of2 resultswithin the time period is included. Pathologist [facility] CULTURE No Growth. 11/10/2024 10:04 PM CDT [facility] Blood BLOOD SPECIMEN / Unknown Venipuncture / Unknown 11/05/2024 9:15 PM CDT 11/05/2024 9:23 PM CDT Neha SWENSON MICROBIOLOGY Final Re sult Performing Organization Address City/[facility] Co de Phone Number [facility] [address] [place] [address], * (ABNORMAL) MRSA/SA PCR (11/05/2024 4:53 PM CDT) Pathologist [facility] MRSA DNA PCR Negative Negative 11/05/2024 7:02 PM CDT [facility] STAPHYLOCOCCUS AUREUS PCR Positive(A) Negative 11/05/2024 7:02 PM CDT [facility] Other SPECIMEN FROM INTERNAL NOSE / Unknown Non-Blood / Unknown 11/05/2024 4:53 PM CDT 11/05/2024 5:01 PM CDT Narrative [facility] - 11/05/2024 7:02 PM CDT S. aureus detected; NOT MRSA. Test result does not preclude MRSA nasal colonization. False negative for MRSA could be obtained if MRSA present in the sample is below threshold of detection. Neha SWENSON MICROBIOLOGY Final Re sult Performing Organization Address City/[facility]/ZIP Co de Phone Number [facility] [address] [place] [address], * (ABNORMAL) URINALYSIS MICROSCOPIC (11/05/2024 4:53 PM CDT) RBC >100(A) 0-2, None Seen /HPF 11/05/2024 5:19 PM CDT [facility] WBC 11-25(A) 0-2, 3-5, None Seen /HPF 11/05/2024 5:19 PM CDT [facility] BACTERIA Few None Seen, Rare, Few Bacteria/ HPF 11/05/2024 5:19 PM CDT [facility] EPITHELIAL CELLS None Seen None Seen, Few Epi/HPF 11/05/2024 5:19 PM CDT [facility] HYALINE CASTS 3-5 0-2, 3-5 /LPF 11/05/2024 5:19 PM CDT [facility] Urine URINE SPECIMEN / Unknown Non-Blood / Unknown 11/05/2024 4:53 PM CDT 11/05/2024 5:02 PM CDT Neha SWENSON URINE Final Re sult Performing Organization Address City/[facility]/ZIP Co de Phone Number [facility] [address] [place] [address], * URINE CULTURE (11/05/2024 4:53 PM CDT) CULTURE No growth (<1,000 CFU/mL) 11/07/2024 10:07 AM CDT [facility] Urine URINE SPECIMEN / Unknown Non-Blood / Unknown 11/05/2024 4:53 PM CDT 11/05/2024 5:02 PM CDT Neha SWENSON MICROBIOLOGY Final Re sult [facility] [address] [place] [address], [place] * (ABNORMAL) UA W/ SEDIMENT EXAM REFLEXED PER CRITERIA (11/05/2024 4:53 PM CDT) COLOR Whiteside(A) Yellow Color 11/05/2024 5:19 PM CDT [facility] CLARITY Cloudy(A) Clear Clarity 11/05/2024 5:19 PM CDT [facility] SPECIFIC GRAVITY,URINE >=1.030(A) 1.010, 1.015, 1.020, 1.025 11/05/2024 5:19 PM CDT [facility] PH,URINE 5.0(A) 6.0, 7.0, 8.0, 5.5, 6.5, 7.5, 8.5 11/05/2024 5:19 PM CDT [facility] UROBILINOGEN,QU ALITATIVE Normal Normal EU/dl 11/05/2024 5:19 PM CDT [facility] PROTEIN, URINE 100(A) Negative mg/dL 11/05/2024 5:19 PM CDT [facility] GLUCOSE, URINE Negative Negative mg/dL 11/05/2024 5:19 PM CDT [facility] KETONES,URINE Trace(A) Negative mg/dL 11/05/2024 5:19 PM CDT [facility] BILIRUBIN,URINE Abnormal(A) Negative 11/06/19 25 5:19 PM CDT [facility] Comment:A variety of metabol ites and/or medications may result in a positive bilirubin result. Clinical correlation is recommended. OCCULT BLOOD,URINE Large(A) Negative 11/05/2024 5:19 PM CDT [facility] NITRITE Negative Negative 11/05/2024 5:19 PM CDT [facility] LEUKOCYTE ESTERASE Small(A) Negative 11/05/2024 5:19 PM CDT [facility] Urine URINE SPECIMEN / Unknown Non-Blood / Unknown 11/05/2024 4:53 PM CDT 11/05/2024 5:02 PM CDT eNha SWENSON URINE Final Re sult Performing Organization Address [facility] Co de Phone Number [facility] [address] [place] [address], [place] * (ABNORMAL) LACTATE ARTERIAL (11/05/2024 2:33 PM CDT) Only the most recent of7 resultswithin the time period is included. LACTATE,ARTERI AL 2.6(H) 0.5 - 1.6 mmol/L 11/05/2024 3:11 PM CDT [facility] Blood BLOOD SPECIMEN / Unknown Non-Lab Venipuncture / Unknown 11/05/2024 2:33 PM CDT 11/05/2024 2:42 PM CDT Neha SWENSON CHEMISTRY Final Re sult Performing Organization Address [facility] Phone Number [facility] [address] [place] [address], [place] * (ABNORMAL) Thrombin Time - Immediate Postop (11/04/2024 1:04 PM CDT) THROMBIN TIME 16(H) <16 sec 11/04/2024 1:39 PM CDT [facility] Blood BLOOD SPECIMEN / Unknown Non-Lab Venipuncture / Unknown 11/04/2024 1:04 PM CDT 11/04/2024 1:16 PM CDT Florencio Rhodes MD HEMATOLOGY Final Result Performing Organization Address [facility] Co de Phone Number [facility] [address] [place] [address], [place] * APTT - Immediate Postop (11/04/2024 1:04 PM CDT) APTT 33 25 - 36 sec 11/04/2024 1:39 PM CDT [facility] Blood BLOOD SPECIMEN / Unknown Non-Lab Venipuncture / Unknown 11/04/2024 1:04 PM CDT 11/04/2024 1:16 PM CDT Narrative [facility] - 11/04/2024 1:39 PM CDT Therapeutic Range: 59-89 seconds Florencio Rhodes MD HEMATOLOGY Final Result [facility] [address] [place] [address], * Fibrinogen, Quantitative - Immediate Postop (11/04/2024 1:04 PM CDT) Only the most recent of2 resultswithin the time period is included. Pathologist [facility] FIBRINOGEN,IRISH NTITATIVE 310 193 - 401 mg/dL 11/04/2024 1:39 PM CDT [facility] Blood BLOOD SPECIMEN / Unknown Non-Lab Venipuncture / Unknown 11/04/2024 1:04 PM CDT 11/04/2024 1:16 PM CDT Florencio Rhodes MD HEMATOLOGY Final Result [facility] [address] [place] [address], [place] * (ABNORMAL) Cardiac Thromboelastography (11/04/2024 10:54 AM CDT) PATTI REASON Cardiac Weaning Pre-Protamin e Panel 11/04/2024 12:20 PM CDT [facility] INTEM CT >365(H) 139 - 205 s 11/04/2024 12:20 PM CDT [facility] EXTEM CT 115(H) 51 - 73 s 11/04/2024 12:20 PM CDT [facility] EXTEM A5 45 33 - 52 mm 11/04/2024 12:20 PM CDT [facility] EXTEM A10 56 45 - 62 mm 11/04/2024 12:20 PM CDT [facility] EXTEM A20 63 54 - 69 mm 11/04/2024 12:20 PM CDT [facility] EXTEM MCF 65 57 - 72 mm 11/04/2024 12:20 PM CDT [facility] EXTEM ML 2 0 - 6 % 11/04/2024 12:20 PM CDT [facility] EXTEM LI60 98 94 - 100 % 11/04/2024 12:20 PM CDT [facility] FIBTEM A5 16 5 - 16 mm 11/04/2024 12:20 PM CDT [facility] FIBTEM A10 18(H) 6 - 17 mm 11/04/2024 12:20 PM CDT [facility] FIBTEM A20 20(H) 6 - 18 mm 11/04/2024 12:20 PM CDT [facility] FIBTEM MCF 22(H) 6 - 19 mm 11/04/2024 12:20 PM CDT [facility] HEPTEM CT 247(H) 141 - 215 s 11/04/2024 12:20 PM CDT [facility] HEPTEM A5 38 33 - 51 mm 11/04/2024 12:20 PM CDT [facility] HEPTEM A10 49 44 - 61 mm 11/04/2024 12:20 PM CDT [facility] HEPTEM A20 57 52 - 67 mm 11/04/2024 12:20 PM CDT [facility] HEPTEM MCF 59 54 - 69 mm 11/04/2024 12:20 PM CDT [facility] Blood BLOOD SPECIMEN / Unknown Non-Lab Venipuncture / Unknown 11/04/2024 10:54 AM CDT 11/04/2024 11:02 AM CDT us Enrique Griffin MD HEMATOLOGY Final R esult [facility] [address] [place] [address], [place] * ECHO PABLO INTRAOPERATIVE (11/04/2024 10:45 AM CDT) AORTIC VALVE MEAN PG 14 mmHg EJECTION FRACTION 55 - 60% Anatomical Region Laterality Modality Computed Radiogr aphy 11/04/2024 7:43 AM CDT Narrative 11/05/2024 10:45 AM CDT TRANSESOPHAGEAL ECHOCARDIOGRAM SHANICE RUBIN : 1945 79 years Study Date: 11/04/2024 7:43:35 AM Gender: M BP: 105/69 mmHg Height: 182.90 cm BSA: 2.15 m Weight: 92.30 kg Tech: Referring MD: JARON CRUZ Site: [facility] Reading Location: [facility] Patient Location: Inpatient. Procedure: PABLO and 3D Imaging. Indication for study: AVR, Ascending aorta replacement Cardiac Rhythm: Regular.Study quality: Good. Final Impressions: 1. Normal left ventricular size, normal global systolic function with an estimated EF of 55 - 60%. 2. The aortic valve is calcified and trileaflet, severe stenosis and trivial regurgitation. 3. Moderate concentric left ventricular hypertrophy. 4. The ascending aorta is dilated with a maximal diameter of 4.5 cm. 5. Atrial septum is intact. 6. Watchman device in left atrial appendage. Procedure comments: Indications, goals, risks and alternatives of the procedure were discussed with the patient and informed consent was obtained. The patient received general anesthesia. See procedural record for anesthesia details. Prior to performance of procedure, time out was called to accurately identify the patient and procedure. The Christiano probe was passed without difficulty. PABLO and 3D Imaging was performed. The patient developed no apparent complications during the procedure. Estimated Blood Loss: 0 ml Versed: Specimen Collected: Proceduralist: Enrique Griffin MD Post Procedure Findings Post-CPB: Patient s/p bioAVR with a 25 mm Inspiris graft and an ascending aorta replacement with 28 mm Vascutek Gelweave conduit. No inotropy. Good LV function, EF ~55%. Mild-moderate RV dysfunction. New bioAVR is well-seated, with no PVL/regurg/stenosis. MG 2 mmHg. No significant changes to other valves. Ascending aortic graft has a normal appearance. After decannulation, descending aorta is unchanged. Chamber Sizes and Function Normal left ventricular size, normal global systolic function with an estimated EF of 55 - 60%. Moderate concentric left ventricular hypertrophy. Left atrial size is normal. The left atrial appendage Watchman device in. Right ventricular cavity size is normal, global systolic RV function is normal. RV wall thickness is normal. The right atrium is normal. The pulmonary artery is of normal size and origin. The sinus of Valsalva is normal sized. The ascending aorta is dilated. Aortic arch is normal sized. Descending aorta is normal sized. Valves, RV Pressures and Diastolic Function The aortic valve is calcified and trileaflet, severe stenosis and trivial regurgitation. The mitral valve is normal in structure, mild mitral regurgitation. The tricuspid valve is normal in structure. Tricuspid regurgitation is mild. The pulmonic valve is normal. No pulmonic regurgitation is present on color flow. Masses, Effusion, Shunts There is no pericardial effusion. Atrial septum is intact. MEASUREMENTS AND CALCULATIONS 2-D Measurements and LV Function: Asc Ao 4.5 cm LVOT diameter 2.3 cm HR 52 bpm Diastology: Mitral E Peak 0.64 m/s A Peak 0.20 m/s E/A 3.2 Aortic Valve: Vmax 2.3 m/s HOLGER (V) 1.23 cm VTI 0.54 m HOLGER (I) 1.25 cm LVOT V max 0.7 m/s Max PG 21 mmHg LVOT VTI 0.16 m Mean PG 14 mmHg SV 68 ml Dim Index 0.30 SV index 32 ml/m CO 3.5 l/min CI 1.6 l/min/m Mitral Valve: . Final (Updated) Procedure Note Enrique Griffin MD - 11/05/2024 TRANSESOPHAGEAL ECHOCARDIOGRAM SHANICE RUBIN : 1945 79 years Study Date: 11/04/2024 7:43:35 AM Gender: M BP: 105/69 mmHg Height: 182.90 cm BSA: 2.15 m Weight: 92.30 kg Tech: Referring MD: JARON CRUZ Site: [facility] Reading Location: [facility] Patient Location: Inpatient. Procedure: PABLO and 3D Imaging. Indication for study: AVR, Ascending aorta replacement Cardiac Rhythm: Regular.Study quality: Good. Final Impressions: 1. Normal left ventricular size, normal global systolic function with anestimated EF of 55 - 60%. 2. The aortic valve is calcified and trileaflet, severe stenosis andtrivial regurgitation. 3. Moderate concentric left ventricular hypertrophy. 4. The ascending aorta is dilated with a maximal diameter of 4.5 cm. 5. Atrial septum is intact. 6. Watchman device in left atrial appendage. Procedure comments: Indications, goals, risks and alternatives of theprocedure were discussed with the patient and informed consent wasobtained. The patient received general anesthesia. See procedural recordfor anesthesia details. Prior to performance of procedure, time out wascalled to accurately identify the patient and procedure. The Christiano probewas passed without difficulty. PABLO and 3D Imaging was performed. Thepatient developed no apparent complications during the procedure. Estimated Blood Loss: 0 ml Versed: Specimen Collected: Proceduralist: Enrique Griffin MD Post Procedure Findings Post-CPB: Patient s/p bioAVR with a 25 mm Inspiris graft and an ascendingaorta replacement with 28 mm Vascutek Gelweave conduit. No inotropy. GoodLV function, EF ~55%. Mild-moderate RV dysfunction. New bioAVR iswell-seated, with no PVL/regurg/stenosis. MG 2 mmHg. No significantchanges to other valves. Ascending aortic graft has a normal appearance.After decannulation, descending aorta is unchanged. Chamber Sizes and Function Normal left ventricular size, normal global systolic function with anestimated EF of 55 - 60%. Moderate concentric left ventricularhypertrophy. Left atrial size is normal. The left atrial appendageWatchman device in. Right ventricular cavity size is normal, globalsystolic RV function is normal. RV wall thickness is normal. The rightatrium is normal. The pulmonary artery is of normal size and origin. Thesinus of Valsalva is normal sized. The ascending aorta is dilated. Aorticarch is normal sized. Descending aorta is normal sized. Valves, RV Pressures and Diastolic Function The aortic valve is calcified and trileaflet, severe stenosis and trivialregurgitation. The mitral valve is normal in structure, mild mitralregurgitation. The tricuspid valve is normal in structure. Tricuspidregurgitation is mild. The pulmonic valve is normal. No pulmonicregurgitation is present on color flow. Masses, Effusion, Shunts There is no pericardial effusion. Atrial septum is intact. MEASUREMENTS AND CALCULATIONS 2-D Measurements and LV Function: Asc Ao 4.5 cm LVOT diameter 2.3 cm HR 52 bpm Diastology: Mitral E Peak 0.64 m/s A Peak 0.20 m/s E/A 3.2 Aortic Valve: Vmax 2.3 m/s HOLGER (V) 1.23 cm VTI 0.54 m HOLGER (I) 1.25 cm LVOT V max 0.7 m/s Max PG 21 mmHg LVOT VTI 0.16 m Mean PG 14 mmHg SV 68 ml Dim Index 0.30 SV index 32 ml/m CO 3.5 l/min CI 1.6 l/min/m Mitral Valve: . Final (Updated) Jaron SWENSON ECHO ORD Edited Re sult - Final * PATH TISSUE EXAM (11/04/2024 9:39 AM CDT) Case Report Pathology Report Case: [id number] Authorizing Provider: Florencio Rhodes MD Collected: 11/04/2024 0939 Ordering Location: [facility] Received: 11/04/2024 [address] [facility] Pathologist: Yuliya Summers, Specimens: A) - Aorta, ASCENDING AORTA B) - Aortic Valve Leaflets, AORTIC VALVE LEAFLETS 11/08/2024 10:57 AM CDT [facility] Final Diagnosis A) AORTA, ASCENDING PORTION EXCISED PART OF ANEURYSM REPAIR: 1. Aorta with atherosclerosis and patchy medial degeneration, consistent with aneurysmal change 2. Negative for aortitis 3. Clinical diagnosis of ascending aortic aneurysm B) AORTIC VALVE, LEAFLETS, RESECTION: 1. Fibrocalcific changes of trileaflet aortic valve (gross examination only) 2. Clinical history of aortic stenosis 11/08/2024 10:57 AM CDT [facility] at 1057 CDT Clinical Information Mr. Rubin is a 79 y.o. with a history of ascending aortic aneurysm and aortic stenosis. 11/08/2024 10:57 AM CDT [facility] Gross Description A) Received in formalin, labeled with the patient's name and ascending aorta, is a 6 cm long, 4 cm greatest diameter focally disrupted aortic segment with fatty, hemorrhagic adventitial adhesions. The intima is faintly mottled yellow-dailey, smooth and intact. No lesion is identified. The wall is 0.1-0.2 cm thick. Property Technician sections are submitted in 2 cassettes. B) Received in formalin, labeled with the patient's name and aortic valve leaflets, are 3 yellow-dailey aortic valve leaflets measuring 2.4 x 1.2 x 0.2 cm, 2.2 x 1.2 x 0.3 cm and 2.2 x 1.3 x 0.2 cm. Each of the leaflets is focally pliable and distorted by yellow fibrous thickening and nodular calcification. No suspicious lesion is identified. The specimen is personally examined by Dr. Moyer. No sections are submitted. Gross evaluation only. Specimen images have been uploaded. DPL 11/04/2024 11/08/2024 10:57 AM CDT [facility]AL LAB[facility]ATORY Microscopic Description The final diagnosis is based on microscopic examination of appropriate sections of part A. Part B is gross examination only. 11/08/2024 10:57 AM CDT [facility] Additional Information [facility] at [facility] - [address], [place] [address] 11/08/2024 10:57 AM CDT [facility] REVShare [facility] ENTRAL LABORATORY Tissue CARDIOVASCULAR SPECIMEN / Unknown 11/04/2024 9:39 AM CDT 11/04/2024 10:01 AM CDT Tissue specimen (specimen) (Aortic Valve Leaflets) 11/04/2024 9:44 AM CDT 11/04/2024 10:01 AM CDT us Florencio Rhodes MD PATHOLOGY/CYTOLOGY Final Result [facility] LABORATORY-CENTRAL LABORATORY [address] [place] [address], [place] * CVC TRIPLE LUMEN, HCHG INTRDCR NON GUIDING NON LASER PR40, HCHG STOPCOCK PR5, HCHG ANES US GUIDE FOR VASC ACCESS, HCHG CATH INFUSION PR30, HCHG KIT MONITORING PR5, HCHG TUBING PR5, HCHG DRSG PR5, HCHG DRSG PR1, AHC AN INTRODUCER 1 LUMEN PERFORMABLE, HCHG KIT PR5 (11/04/2024 8:46 AM CDT) Enrique Gregorio MD - 11/04/2024 8:46 AM CDT Enrique Griffin MD 11/04/2024 8:46 AM CVC Patient location during procedure: OR Start time: 11/04/2024 8:16 AM Indications: CVP monitoring and vascular access Completed: patient identified, risks and benefits discussed, consent obtained, hand hygiene performed, gown, full-body drape, chloraprep used and completely dried prior to procedure, cap, mask, gloves and timeout performed CVC Patient position: Trendelenburg Laterality: right Site: internal jugular Ultrasound guidance: live ultrasound, ultrasound permanent image saved and sterile gel and probe cover used in ultrasound-guided central venous catheter insertion. Needle localization (ultrasound): no pathologic findings, selected vessel patent, potential access sites evaluated, anatomically normal and needle visualized entering selected vessel. Confirmation: wire visualized in vein by ultrasound Port Insertion: all ports aspirated and all ports flushed easily Securement/Dressing: Biopatch applied, line sutured in place, dressing applied Catheter Catheter size: 9 Fr Catheter length: 10 cm Number of Lumens: single lumen Introducer present: yes Introducer type: TLIC us Enrique Griffin MD ANESTHESIA PX NOTE ORDE RABJANES Final Result * PABLO (11/04/2024 8:46 AM CDT) Narrative Enrique Griffin MD - 11/04/2024 8:46 AM CDT Enrique Griffin MD 11/04/2024 8:47 AM PABLO Start time: 11/04/2024 8:46 AM Completed: Patient identified, risks and benefits discussed, monitors and equipment assessed and anesthesia consent obtained. General Procedure Information Diagnostic Indications for Echo: assessment of surgical repair. Physician Requesting Echo: Florencio Rhodes MD CPT Code: AVR, ascending aorta replacement Location performed: OR procedure room Probe Insertion: easy Inserted by: Enrique Griffin MD Probe Type: multiplane Report generated by: Enrique Griffin MD Intubated: yes Bite block inserted Bite block: Removed Anesthesia Information Anesthesiologist: Enrique Griffin MD Echocardiogram Comments: See Imaging tab for echo report Enrique Griffin MD ANESTHESIA PX NOTE ORDE RABLES Final Result * HCHG TUBE PR10, HCHG STYLET PR1 (11/04/2024 8:19 AM CDT) Narrative Judy Eden CRNA - 11/04/2024 8:19 AM CDT Judy Eden CRNA 11/04/2024 8:20 AM Procedure: ETT Patient location during procedure: OR ETT Properties Mask Ventilation: easy and oral airway Final Technique: direct laryngoscopy Type: straight with subglottic suction Location: oral Cuffed: yes Tube Size: 8.0 mm Stylet: yes Laryngoscope Blade: Mac Blade Size: 4 Cormack-Lehane Grade View: 2 Insertion Attempts: 1 Placement Verification: auscultation, end tidal CO2, symmetrical chest wall movement and cuff palpation Assessment: pharynx clear, atraumatic and dentition unchanged Secured at: 22 Measured From: lips Difficulty: 0 (not difficult) us Judy Eden BLOWER INSULATOR ANESTHESIA PX NOTE ORDERABL ES Final Result * HCHG CATH PR5, HCHG ANES US GUIDE FOR VASC ACCESS, HCHG ANES ARTERIAL CATH FOR SAMPLE MONITOR TRANS, HCHG TUBING PR1, HCHG TUBING PR20, HCHG DRSG PR1, HCHG DRSG PR5, HCHG KIT PR5 (11/04/2024 7:33 AM CDT) Narrative Enrique Griffin MD - 11/04/2024 7:33 AM CDT Enrique Griffin MD 11/04/2024 7:33 AM Arterial Line Patient location during procedure: pre-op Start time: 11/04/2024 7:33 AM Indications: lab sampling and monitoring Staffing Preanesthetic Checklist Completed: patient identified, risks and benefits discussed, consent obtained and timeout performed Arterial Line Patient position: supine. Comment:. Laterality: left Site: radial Local Anesthetic: lidocaine 1%. Ultrasound guidance: live ultrasound and ultrasound permanent image saved. Ultrasound Indication: arteriosclerosis Needle localization (ultrasound): no pathologic findings, anatomically normal, needle visualized entering selected vessel, potential access sites evaluated and selected vessel patent. Securement/dressing: Biopatch applied, dressing applied. Comment: Vessel Dispatcher Refinery Additional supplies used to locate vessel: no Needle Catheter size: 20 G. Comment:. Catheter length: 4.5 cm. Comment: Events: no complications. Enrique Griffin MD ANESTHESIA PX NOTE KATERINE SAL Final Result * Type and Screen (11/04/2024 6:55 AM CDT) Only the most recent of2 resultswithin the time period is included. [facility] 11/04/2024 8:08 AM CDT [facility] Mamina [facility]-CENTRAL LAB BLOOD BANK ANTIBODY SCREEN Negative Negative 11/04/2024 8:08 AM CDT [facility] LAB-CENTRAL LAB BLOOD BANK SPECIMEN EXPIRATION DATE/TIME 11/07/24 23:59 11/04/2024 8:08 AM CDT [facility] Blood BLOOD SPECIMEN / Unknown Non-Lab Venipuncture / Unknown 11/04/2024 6:55 AM CDT 11/04/2024 7:21 AM CDT Jaron SWENSON BLOOD BANK Final Res ult [facility] REVShare LAB-CENTRAL LAB BLOOD BANK [address] [place] [address], [place] [phone] * SCAN-CARDIAC STRIP (11/04/2024 12:00 AM CDT) Narrative 11/04/2024 12:00 AM CDT Ordered by an unspecified provider. Other Clinical Staff OTHER Final Resul t * SCAN-OPERATIVE/PROCEDURE REPORT (11/04/2024 12:00 AM CDT) Narrative 11/04/2024 12:00 AM CDT Ordered by an unspecified provider. us Other Clinical Staff OTHER Final Resul t * CA NJX DX/THER SBST INTRLMNR LMBR/SAC W/IMG GDN (10/26/2024 12:00 AM CDT) us Donny Kirkpatrick MD PB - NERVOUS SYSTEM SERVIC ES Final Result * SCAN-OPERATIVE/PROCEDURE REPORT (10/22/2024 12:00 AM CDT) us Scanner OTHER Final Result * (ABNORMAL) COVID/FLU/RSV PANEL (10/19/2024 9:17 AM CDT) COVID 19 [facility] MOLECULAR Negative Negative 10/19/2024 4:01 PM CDT [facility] Comment:All PCR tests are rodriguez bject to false negative result due to variability in viral load and collection technique. A negative result does not rule out a SARS-CoV-2 infection. Clinical correlation required. INFLUENZA A PCR Negative 5 4:01 PM CDT [facility] INFLUENZA B PCR Negative 5 4:01 PM CDT [facility] Respiratory Syncytial Virus Positive(A) 10/19/2024 4:01 PM CDT [facility] Swab NASOPHARYNGEAL SWAB / Unknown Non-Blood / Unknown 10/19/2024 9:17 AM CDT 10/19/2024 9:18 AM CDT us Kathy SWENSON MICROBIOLOGY Final Result [facility] [address] [place] [address], [place] * SCAN-RADIOLOGY REPORT (10/13/2024 12:00 AM CDT) Anatomical Region Laterality Modality Other us Scanner OTHER Final Result * ANTI HCV [51755.2] (05/02/2015 7:09 AM CDT) HEPATITIS C ANTIBODY Non-Reacti ve Non-Reacti ve 05/02/2015 2:42 PM CDT [facility] TR[facility] LABORATORY Blood specimen (specimen) BLOOD SPECIMEN / Unknown Venipuncture / Unknown 05/02/2015 7:09 AM CDT 05/02/2015 7:09 AM CDT Narrative [facility]-CENTRAL LABORATORY - 05/02/2015 2:42 PM CDT Antibodies to HCV not detected; does not exclude the possibility of exposure to HCV. us Maikol Cortes MD SEND OUTS Final Result [facility] [address] [place] [address], from Last 3 Months or Most Recently Relevant to Health Maintenance Insurance [employer] MR PB ONLY MEDICARE PART B HB ONLY MEDICA PRIME SOLUTION HB MEDICARE PART A HB ONLY Advance Directives Documents on File Type Date Recorded Patient Property Technician Expl anation Healthcare Directive 06/21/2024 024 Healthcare Directive 05/08/2016 2:18 PM QUIN, 01/26/2016 Healthcare Directive 05/23/2014 11:40 AM QUIN, 07/18/2005 * Full Code (Latest Code Status on File) Date Activated Date Inactivated Comments 11/16/2024 3:39 PM 11/17/2024 6:43 PM Question Answer Comments Code Status Discussion: Reviewed Preferences * Full Code Date Activated Date Inactivated Comments 11/04/2024 6:15 AM 11/11/2024 4:18 PM Question Answer Comments Code Status Discussion: Reviewed Preferences * Full Code Date Activated Date Inactivated Comments 09/11/2022 11:35 AM 09/12/2022 4:00 PM Question Answer Comments Code Status Discussion: Reviewed Preferences * Full Code Date Activated Date Inactivated Comments 12/27/2020 12:05 PM 12/28/2020 1:08 PM Question Answer Comments Code Status Discussion: Discussed * Full Code Date Activated Date Inactivated Comments 12/13/2020 7:14 AM 12/13/2020 11:53 AM Question Answer Comments Code Status Discussion: Per Existing Order Care Teams Railroad Track Mechanic Relationship Specialty Start Date End Date [place] [address] [address] PCP - General Family Practice 10/28/16
--- OUTSIDE RECORDS SUMMARY | 2024-12-21 19:37 | XMS_ITS | Clinical Summary ---
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 Gender Identity Not on file Sexual Orientation [...] ANNUAL WELLNESS VISIT 07/16/2022 07/16/2021, 05/01/2020 COVID-19 VACCINE ( season) 2024 05/16/2022, 12/07/2021, 05/07/2021, Additional history exists PHQ-2 (once per calendar year) 2024 INFLUENZA VACCINE (Season Ended) 2025 05/16/2022, 05/14/2021, 04/06/2020, Additional history exists DIABETES SCREENING 11/12/2025 11/12/2022, 0 11/12/2022, 04/25/2020, Additional history exists DTAP/TDAP/TD VACCINE (5 - Td or Tdap) 01/15/2030 01/16/2020, 02/19/2013, 10/31/2006, Additional history exists PNEUMOCOCCAL VACCINE 50+ YEARS Completed 06/26/2015, 06/11/2012 ZOSTER VACCINE Completed 08/03/2019, 05/07, 08/02/2008 HPV VACCINE Aged Out No longer eligi ble based on patient's age to complete this topic MENINGITIS VACCINE Aged Out No longer eligible based on patient's age to complete this topic Medical Devices Implanted Type Area Retail Sales Specialist Device Identifier Shelf Expiration Date Model / Serial / Lot Graft Bone Infuse Bmp [id number] Implanted:Qt y: 1 on 04/28/2017 by Bonnie Child MD at [facility] Bone/Tissue /Biologic Right: Ankle [employer]-DANEK 09/03/2018 [id number] / [id number] / [id number] G Graft Fascia Sepideh Medium - [id number] Implanted:Qt y: 1 on 09/19/2021 by Dianna Charlton MD at [facility] Bone/Tissue /Biologic Left: Thumb MUSCULOSKELETAL BAEZA 03/26/2024 [id number] / [id number] / Graft Bone Head Femoral 44mm [id number] - [id number] Implanted:Qt y: 1 on 11/11/2022 by Bonnie Child MD at [facility] Bone/Tissue /Biologic Right: Ankle MUSCULOSKELETAL BAEZA 05/04/2026 [id number] / [id number] / Imp Scr Arthrex Blue Locking 3.5x18mm Ar-8935l-18 Implanted:Qt y: 3 on 02/03/2017 by Bonnie Child MD at [facility] Metallic Hardware/An chor Left: Foot ARTHREX AR-8935L- 18 / / AUTOCLAVE D FEBRUARY 03 2017 LOAD 42/03 Imp Scr Arthrex Can 4.0x20mm Ar-8940-20 Implanted:Qt y: 1 on 02/03/2017 by Bonnie Child MD at [facility] Metallic Hardware/An chor Left: Foot ARTHREX AR-8940-2 0 / / AUTOCLAVE D FEBRUARY 03 2017 LOAD 42/03 Imp Plate Arthrex Lapidus Ar-8941 Implanted:Qt y: 1 on 02/03/2017 by Bonnie Child MD at [facility] Metallic Hardware/An chor Left: Foot ARTHREX AR-8941 / / AUTOCLAVE D FEBRUARY 03 2017 LOAD 42/03 Imp Staple Mmi Easyclip Si Forefoot [id number] Syn64-16-68 - [id number] Implanted:Qt y: 1 on 09/19/2021 by Dianna Charlton MD at [facility] Metallic Hardware/An chor Left: Thumb [employer] 07/06/2025 KQT67-56- 13 / / [id number] Imp Staple Mmi Easyclip Si Forefoot [id number] Ktw61-39-23 - [id number] Implanted:Qt y: 1 on 09/19/2021 by Dianna Charlton MD at [facility] Metallic Hardware/An chor Left: Thumb [employer] 04/05/2025 QWJ78-58- 13 / / [id number] Nail 12mm 150mm Ankl Rt T2 Im Lck Ti Strl Arthds - [id number] Implanted:Qt y: 1 on 11/11/2022 by Bonnie Child MD at [facility] Metallic Hardware/An chor Right: Ankle [employer] [id number] 02/03/2027 6528-3623 S / / [id number] Imp Scr Strk Lock 5.0x40mm Ft 1896-5040s - [id number] Implanted:Qt y: 1 on 11/11/2022 by Bonnie Child MD at [facility] Metallic Hardware/An chor Right: Ankle [employer] [id number] 05/06/2027 4166-9964 S / / [id number] Imp Scr Strk Lock 5.0x40mm Ft 1896-5040s - [id number] Implanted:Qt y: 1 on 11/11/2022 by Bonnie Child MD at [facility] Metallic Hardware/An chor Right: Ankle [employer] [id number] 02/03/2027 5606-3005 S / / [id number] Imp Scr Strk Lock 5.0x32.5mm Ft 1896-5032s - [id number] Implanted:Qt y: 1 on 11/11/2022 by Bonnie Child MD at [facility] Metallic Hardware/An chor Right: Ankle [employer] [id number] 06/05/2027 4309-0293 S / / [id number] Imp Scr Strk Lock 5.0x85mm Ft 1896-5085s - [id number] Implanted:Qt y: 1 on 11/11/2022 by Bonnie Child MD at [facility] Metallic Hardware/An chor Right: Ankle [employer] [id number] 03/06/202718950192-2043 S / / [id number] Imp End Cap Strk T2 Ft Spnial Scr 1826-0003s - [id number] Implanted:Qt y: 1 on 11/11/2022 by Bonnie Child MD at [facility] Metallic Hardware/An chor Right: Ankle [employer] [id number] 03/06/202718257918-1541 S / / [id number] Imp Insert Tornier Tibial Ankle Size 3x9mm Lt [id number] Implanted:Qt y: 1 on 02/03/2017 by Bonnie Child MD at [facility] Total Joint Component/I nsert Left: Ankle [employer] 05/03/2020 [id number] / [id number] / Imp Insert Tornier Tibial Ankle Base Size 3 [id number] Implanted:Qt y: 1 on 02/03/2017 by Bonnie Child MD at [facility] Total Joint Component/I nsert Left: Ankle [employer] 02/08/2021 [id number] / [id number] / Imp Comp Tornier Talar Ankle Size 3 Lt [id number] Implanted:Qt y: 1 on 02/03/2017 by Bonnie Child MD at [facility] Total Joint Component/I nsert Left: Ankle [employer] 09/03/2020 [id number] / [id number] / Imp Wire Nitin 0.045x4 - . Implanted:Qt y: 2 on 09/19/2021 by Dianna Charlton MD at [facility] Wire Left: Thumb G SOURCE 78. / 78.202 / [id number] Imp Wire Nitin 0.062x4 - . Implanted:Qt y: 2 on 09/19/2021 by Dianna Charlton MD at [facility] Wire Left: Thumb G SOURCE 78.203 / 78.203 / [id number] Bme Elite [id number] One Nitinol Implant For Use With Dk-300 Drill Bit Kit Implanted:Qt y: 1 on 02/03/2017 by Bonnie Child MD at [facility] Left: Foot 06/05/2021 [id number] / / Graft Bone Infuse Bmp Sm [id number] Implanted:Qt y: 1 on 04/24/2020 by Bonnie Child MD at [facility] Right: Ankle [employer] 03/06/2022 [id number] / / [id number] Graft Bone Infuse Bmp Lg [id number] - [id number] Implanted:Qt y: 1 on 11/11/2022 by Bonnie Child MD at [facility] Right: Ankle [employer] 07/07/2024 [id number] / / [id number] T2 3mm X 285mm K-Wire Implanted:Qt y: 1 on 11/11/2022 by Bonnie Child MD at [facility] Right: Ankle 1431-5260 / / Explanted Type Area Retail Sales Specialist Device Identifier Shelf Expiration Date Model / Serial / Lot Imp Insert Tornier Tibial Ankle Base Size 3 [id number] Implanted:Qty: 1 on 04/28/2017 by Bonnie Child MD at [facility] Explanted:Qty: 1 on 04/24/2020 by Bonnie Child MD at [facility] Total Joint Component /Insert Right: Ankle [employer] 02/14/2021 [id number] / [id number] / Imp Insert Tornier Tibial Ankle Size 3x11mm Rt [id number] Implanted:Qty: 1 on 04/28/2017 by Bonnie Child MD at [facility] Explanted:Qty: 1 on 04/24/2020 by Bonnie Child MD at [facility] Total Joint Component /Insert Right: Ankle [employer]OR[employer] INC 07/06/2019 [id number] / [id number] / Agility Total Ankle Components X3 (Discarded) Explanted:Qty: 1 on 04/28/2017 by Bonnie Child MD at [facility] Right: Ankle Kimberly Talaris Xt Size 3 Right Talar Part Short Peg Implanted:Qty: 1 on 04/28/2017 by Bonnie Child MD at [facility] Explanted:Qty: 1 on 04/24/2020 by Bonnie Child MD at [facility] Right: Ankle 04/17/2020 BBM145 / [id number] / Imp Tibial Tray, Xl, Size 3 Implanted:Qty: 1 on 04/24/2020 by Bonnie Child MD at [facility] Explanted:Qty: 1 on 11/11/2022 by Bonnie Child MD at [facility] Right: Ankle [employer] 03/11/2023 [id number] / / [id number] Kimberly Talaris Tibial Insert Size 3 Right Implanted:Qty: 1 on 04/24/2020 by Bonnie Child MD at [facility] Explanted:Qty: 1 on 11/11/2022 by Bonnie Child MD at [facility] Right: Ankle TORNIER 06/22/2020 GRT161 / [id number] / Imp Kimberly Talaris Xt Talar Part Short Peg Size 3 Right Implanted:Qty: 1 on 04/24/2020 by Bonnie Child MD at [facility] Explanted:Qty: 1 on 11/11/2022 by Bonnie Child MD at [facility] Right: Ankle TORNIER 06/14/2021 [id number] / [id number] / Procedures Procedure Name Priority Date/Time Associated [...] BEAKER POCT Final Re sult LABORATORY POC [facility] Acute Care Lab [address], [address] [place] [address], [facility] [phone] from Last 3 Months or Most Recently Relevant to Health Maintenance Insurance MEDICARE Diet [employer] [facility] Advance Directives For more information, please contact: [phone] * Full Code (Latest Code Status on [...] 4:08 PM 02/05/2017 3:35 PM Care Teams Data Center Technician Relationship Specialty Start Date End Date Adrien Hernandez MD [address] [place] [address] PCP - General 01/06/17
[2024-12-21] MEDS: 0.9 % SODIUM CHLORIDE 500 ML 500 ML IV (20:12)
--- NOTE | 2024-12-21 20:24 | ED.GENADULT ---
HPI - General Adult General Date Seen: 12/21/24 Chief complaint: Arrhythmia/Palpitations Stated complaint: Possible AFIB Time Seen by Provider: 12/21/24 19:35 History of Present Illness HPI narrative: Patient is a 79-year-old male with a longstanding history of atrial fibrillation and flutter, most recently cardioverted last week at [facility]. He has an ablation scheduled for next week and so yesterday discontinued his amiodarone and today started on Eliquis. A couple of hours prior to coming in he noted that his heart rate was fast on his watch, he says that it was not calling in atrial fibrillation but was noting a fast rate. Last week he said that he was in atrial flutter when he was cardioverted. He denies any specific complaints, says that he felt a little ?crummy earlier although right now he is not feeling that poorly. Does not have chest pain, difficulty breathing, lightheadedness etcetera. Related Data Home Medications ?Medication ?Instructions ?Recorded ?Confirmed amlodipine 5 mg tablet 5 mg PO DAILY 07/10/22 12/21/24 eszopiclone 1 mg tablet 1 mg PO HS 07/10/22 12/21/24 evolocumab 140 mg/mL subcutaneous 140 mg subcut Q14D 07/10/22 12/21/24 pen injector (Jarod Rodriguez) aspirin 81 mg capsule 81 mg PO DAILY 10/12/22 12/21/24 celecoxib 100 mg capsule 100 mg PO BID PRN 07/17/23 12/21/24 omeprazole 40 mg capsule,delayed 40 mg PO DAILY 07/21/23 12/21/24 release betamethasone, augmented 0.05 % 1 applic topical 07/27/24 11/01/24 topical ointment clobetasol 0.05 % topical cream 1 applic topical 07/27/24 11/01/24 peg 400-propylene glycol 0.4 %-0.3 1 drp ophthalmic (eye) BID 10/07/24 12/21/24 % eye gel drops xyosted INJECTION 10/21/24 11/01/24 apixaban 5 mg tablet (Eliquis) 5 mg PO BID 12/21/24 12/21/24 Previous Rx's ?Medication ?Instructions ?Recorded cyclobenzaprine 10 mg tablet 10 mg PO QHS #20 tabs 10/07/24 Allergies Allergy/AdvReac Type Severity Reaction Status Date / Time latex Allergy Unknown Verified 12/21/24 19:40 atorvastatin Allergy Verified 12/21/24 19:40 lisinopril Allergy Verified 12/21/24 19:40 naproxen Allergy Nausea Verified 12/21/24 19:40 rosuvastatin Allergy Verified 12/21/24 19:40 Review of Systems Status of ROS: Reports: 6 or more systems reviewed and unremarkable except as noted in History and below [facility] Medical History Health care directive on file ?Z78.9 - Other specified health status (ICD-10) Sarcoidosis ?D86.9 - Sarcoidosis, unspecified (ICD-10) Atrial fibrillation ?I48.91 - Unspecified atrial fibrillation (ICD-10) Chronic systolic CHF (congestive heart failure) ?I50.22 - Chronic systolic (congestive) heart failure (ICD-10) Prostate cancer ?C61 - Malignant neoplasm of prostate (ICD-10) Hypertension ?I10 - Essential (primary) hypertension (ICD-10) Pain of foot ?M79.673 - Pain in unspecified foot (ICD-10) Malaise ?R53.81 - Other malaise (ICD-10) Laceration of left side of forehead with complication ?S01.81XA - Laceration without foreign body of other part of head, initial encounter (ICD-10) Facial injury ?S09.93XA - Unspecified injury of face, initial encounter (ICD-10) 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) Chronic headache ?R51.9 - Headache, unspecified (ICD-10) ?G89.29 - Other chronic pain (ICD-10) Chronic daily headache ?R51.9 - Headache, unspecified (ICD-10) Atrial flutter with rapid ventricular response ?I48.92 - Unspecified atrial flutter (ICD-10) Atrial fibrillation with rapid ventricular response ?I48.91 - Unspecified atrial fibrillation (ICD-10) Methicillin resistant Staphylococcus aureus culture positive (03/31/19) ?Z22.322 - Carrier or suspected carrier of Methicillin resistant Staphylococcus aureus (ICD-10) Diverticulitis ?K57.92 - Diverticulitis of intestine, part unspecified, without perforation or abscess without bleeding (ICD-10) Surgical History Status post tendon repair (07/21/23) ?Z98.890 - Other specified postprocedural states (ICD-10) H/O prostatectomy (10/2014) ?Z90.79 - Acquired absence of other genital organ(s) (ICD-10) History of elbow surgery (01/19/04) ?Z98.890 - Other specified postprocedural states (ICD-10) Status post arthroscopy of left shoulder (03/02/03) ?Z98.890 - Other specified postprocedural states (ICD-10) S/P ankle joint replacement ?Z96.669 - Presence of unspecified artificial ankle joint (ICD-10) H/O elbow surgery (~09/2017) ?Z98.890 - Other specified postprocedural states (ICD-10) Social History Narrative: -Kristen What is your current living situation?: I presently have a place to live In the past 12 months, utilities in danger of being shut off: no In past 12 months, lack of transportation kept you from medical appts, meetings, work, or getting things needed for daily living: no In the past 12 mos, have been you worried that your food would run out before you had money to buy more?: never true In the past 12 mos, the food you bought just didn't last and you didn't have money to buy more?: never true Smoking Status: Never smoker Do you use any of these nicotine containing products: None Second hand tobacco smoke exposure: No How often do you have a drink containing alcohol: never AUDIT-C Alcohol total score: 0 Non-prescribed substance use: denies use Caffeine: Yes How often does anyone, including family, friends and others, physically hurt you: never How often does anyone, including family, friends and others, insult or talk down to you: never How often does anyone, including family, friends and others, threaten you with harm: never How often does anyone, including family, friends and others, scream or curse at you: never service: No Exam Narrative: Exam Narrative: Vital signs reviewed In general, alert, nontoxic elderly male. Breathing easily, speaks in full sentences. Head: Normocephalic, atraumatic. Eyes: Sclera clear. Pupils equal and reactive. ENT: Mucous membranes moist. Neck: Supple without adenopathy. Heart: Tachycardic, regular. Lungs: Clear. No increased work of breathing, crackles or wheezes. Abdomen: Soft, nontender to palpation. Extremities: Well perfused, pulses intact. No significant edema. Neurologic: Alert, conversant. Speech fluent, face symmetric. Moves all extremities equally. Skin: Warm, dry well perfused. Affect: Normal. Const: Vital Signs, click to edit/add: Vital Signs - 24 hr 12/21/24 19:42 12/21/24 20:03 12/21/24 20:17 Temperature 98.3 F Pulse Rate [Pulse Oximeter] 122 H 116 H Respiratory Rate 20 18 Blood Pressure [Ri ght Upper Arm] 132/78 138/98 H Pulse Oximetry 98 97 97 Oxygen Delivery Me thod Room Air Room Air 12/21/24 20:25 12/21/24 21:00 12/21/24 21:24 Temperature Pulse Rate [Pulse Oximeter] 115 H 114 H 84 Respiratory Rate 18 18 18 Blood Pressure [Ri ght Upper Arm] 134/95 H 127/88 153/106 H Pulse Oximetry 95 97 97 Oxygen Delivery Me thod Room Air Room Air Room Air 12/21/24 21:45 12/21/24 22:00 Temperature Pulse Rate [Pulse Oximeter] 85 85 Respiratory Rate 20 20 Blood Pressure [Ri ght Upper Arm] 129/93 H 128/91 H Pulse Oximetry 97 96 Oxygen Delivery Me thod Room Air Room Air Course Course ED Course: Patient maintained on the quality assurance monitor body and pulse oximetry. An EKG was done as a arrival which by my review shows a narrow complex, regular tachycardia with a rate of 119. History this is most likely atrial flutter although I do not think it can be definitively diagnosed based on his EKG. In the time that I was with him his heart rate was [address] an IV, give a little bit of fluid, I suspect that cardioversion will be warranted, but I would like to just make sure that he does not have any response to fluids. He has also asked that I check with cardiology to make sure that with his upcoming ablation there is no concerns about cardioversion today. He does note that symptoms started just a couple of hours ago so I think even though he is not currently anticoagulated it would be reasonable to cardiovert based on onset of symptoms. His rate remained about the same after fluids, repeat EKG again difficult to determine whether this is atrial flutter based solely on EKG. I did discuss with Cardiology to ensure that cardioversion was okay tonight in terms of upcoming ablation which he said it was. We also talked about the EKGs and he recommended just a trial of adenosine to be sure as he was not able to tell based on EKGs either. Gave 6 mg of adenosine and did see flutter waves, therefore recommended proceeding with cardioversion. I personally discussed risks and benefits of both sedation and cardioversion including over-sedation, need for airway management, aspiration, failure to convert, arrhythmia. He agreed to proceed. He was maintained on cardiac monitoring, O2 monitoring and end-tidal CO2. Dr. Schultz performed sedation, please see her note for details. He was given etomidate based on prior ED visits with cardioversion. He had 10 mg, tolerated well, cardioverted with 120 joules to sinus rhythm. Repeat EKG shows a sinus rhythm ventricular rate of 86. He awakened without difficulty and feels well. Will plan to discharge home, continue current medications, follow up for ablation next week as planned. Return any time for recurrent symptoms. Vital Signs Vital signs: Initial Vital Signs Temperature 98.3 F 12/21/24 19:42 Temperature Source Temporal Artery Scan 12/21/24 19:42 Pulse Rate 122 H 12/21/24 19:42 Respiratory Rate 20 12/21/24 19:42 Blood Pressure 132/78 12/21/24 19:42 Blood Pressure Mean 96 12/21/24 19:42 Pulse Oximetry 98 12/21/24 19:42 Oxygen Delivery Method Room Air 12/21/24 19:42 Vital Signs Temperature 98.3 F 12/21/24 19:42 Pulse Rate 122 H 12/21/24 19:42 Respiratory Rate 20 12/21/24 19:42 Blood Pressure 132/78 12/21/24 19:42 Pulse Oximetry 98 12/21/24 19:42 Oxygen Delivery Method Room Air 12/21/24 19:42 Temperature 98.3 F 12/21/24 19:42 Pulse Rate 85 12/21/24 22:00 Respiratory Rate 20 12/21/24 22:00 Blood Pressure 128/91 H 12/21/24 22:00 Pulse Oximetry 96 12/21/24 22:00 Oxygen Delivery Method Room Air 12/21/24 22:00 Medications Administered Medications: Discontinued Medications Generic Name Dose Route Start Last Admin Trade Name Kyle PRN Reason Stop Dose Admin Adenosine 6 mg 12/21/24 21:39 12/21/24 21:00 Adenosine 6 Mg/2ml Inj IVP 12/21/24 21:40 6 mg ONCE ONE Administration Etomidate 10 mg 12/21/24 21:03 12/21/24 21:16 Etomidate 2 Mg/Ml Inj IVP 12/21/24 21:04 10 mg ONCE ONE Administration Sodium Chloride 500 mls @ 500 mls/hr 12/21/24 20:09 12/21/24 21:31 0.9 % Sodium Chloride 500 Ml IV 12/21/24 21:08 Infused .Q1H ONE Infusion Medical Decision Making Lab Data Labs: Lab Results 12/21/24 Range/Units 20:10 WBC 5.32 (4.50-11.00) K/uL RBC 4.33 (4.30-5.90) m/uL Hgb 12.1 L (13.5-17.5) gm/dL Hct 38.7 (37.0-53.0) % MCV 89 (80-100) fL MCH 28 (26-34) pg MCHC 31 L (32-36) gm/dL RDW Coeff of Gin 15.2 (11.5-15.5) % Plt Count 264 (140-440) K/uL Neut % (Auto) 65.0 (42.0-72.0) % Lymph % (Auto) 19.4 L (20-44) % [place] % (Auto) 9.8 (0.0-11.0) % Eos % (Auto) 4.7 (0.0-7.0) % Baso % (Auto) 0.9 (0.0-3.0) % Neut # (Auto) 3.46 (1.7-7.0) K/uL Lymph # (Auto) 1.00 (0.90-2.90) K/uL [place] # (Auto) 0.50 (0.00-0.90) K/UL Eos # (Auto) 0.25 (0.00-0.50) K/uL Baso # (Auto) 0.05 (0.00-0.30) K/uL Abs Immat Gran (auto) 0.01 (0.00-0.30) K/uL Imm/Tot Granulo (auto) 0.2 % Sodium 140 (135-149) mmol/L Potassium 4.1 (3.6-5.1) mmol/L Chloride 104 (96-114) mmol/L Carbon Dioxide 27 (20-32) mmol/L Anion Gap 9 (7-15) mEq/L BUN 18 (7-30) mg/dL Creatinine 1.1 (0.5-1.5) mg/dL Estimated Creat Clear 55.56 Estimated GFR 69 ml/min Glucose 127 H (60-115) mg/dL Calcium 9.7 (8.4-10.6) mg/dL Magnesium 2.1 (1.5-2.6) mg/dL POC Troponin I 0.01 (0.01-0.04) ng/ml Discharge Plan Discharge Clinical Impression: Atrial flutter Patient Disposition: Home, Self-Care Condition: Improved Instructions: Atrial Flutter (DC) Additional Instructions: Follow up for ablation next week as planned. Call your cardiology clinic or return if you redevelop symptoms. Prescriptions: No Action peg 400-propylene glycol 0.4-0.3 % drops,gel 1 drp ophthalmic (eye) BID Rx Instructions: Apply 1 Drop to eye two times a day. cyclobenzaprine 10 mg tablet 10 mg PO QHS Qty: 20 1RF xyosted INJECTION Patient Comments: Patient unsure of the dose. Repatha SureClick 140 mg/mL pen injector 140 mg subcut Q14D eszopiclone 1 mg tablet 1 mg PO HS amlodipine 5 mg tablet 5 mg PO DAILY aspirin 81 mg capsule 81 mg PO DAILY celecoxib 100 mg capsule 100 mg PO BID PRN omeprazole 40 mg capsule,delayed release(DR/EC) 40 mg PO DAILY clobetasol 0.05 % cream 1 applic topical betamethasone, augmented 0.05 % ointment 1 applic topical Eliquis 5 mg tablet 5 mg PO BID Follow Up/Referrals: Adrien Hernandez MD [Primary Care Provider, Family Practice] Stand Alone Forms: [employer] Info Instructions
[2024-12-21 20:26] LABS: Troponin, Point-of-Care* 0.01 ng/ml (0.01-0.04)
[2024-12-21 20:32] LABS: Basophils Absolute Auto 0.05 K/uL (0.00-0.30); Basophils Percent Auto 0.9 % (0.0-3.0); Eosinophils Absolute Auto 0.25 K/uL (0.00-0.50); Eosinophils Percent Auto 4.7 % (0.0-7.0); Hematocrit 38.7 % (37.0-53.0); Hemoglobin* 12.1 gm/dL (13.5-17.5); Immature Granulocytes Abs Auto 0.01 K/uL (0.00-0.30); Immature Granulocytes Pct Auto 0.2 %; Lymphocytes Percent Auto 19.4 % (20-44); Mean Corpuscular HGB Conc 31 gm/dL (32-36); Mean Corpuscular Hemoglobin 28 pg (26-34); Mean Corpuscular Volume 89 fL (80-100); Monocytes Percent Auto 9.8 % (0.0-11.0); Neutrophils Absolute Auto 3.46 K/uL (1.7-7.0); Platelet Count* 264 K/uL (140-440); RDW Coefficient of Variation % 15.2 % (11.5-15.5); Red Blood Count 4.33 m/uL (4.30-5.90); White Blood Count* 5.32 K/uL (4.50-11.00)
[2024-12-21 20:46] LABS: Slide Review Reflex No
[2024-12-21 20:48] LABS: Chloride* 104 mmol/L (96-114); Potassium* 4.1 mmol/L (3.6-5.1); Sodium* 140 mmol/L (135-149)
[2024-12-21 20:51] LABS: Anion Gap 9 mEq/L (7-15); Blood Urea Nitrogen* 18 mg/dL (7-30); Calcium* 9.7 mg/dL (8.4-10.6); Carbon Dioxide* 27 mmol/L (20-32); Creatinine* 1.1 mg/dL (0.5-1.5); Est. Creatinine Clearance* 55.56; Estimated Glomerular Filt Rate 69 ml/min; Glucose* 127 mg/dL (60-115)
[2024-12-21 20:52] LABS: Magnesium* 2.1 mg/dL (1.5-2.6)
[2024-12-21] MEDS: ADENOSINE 6 MG/2ML INJ IVP (21:00)
[2024-12-21] MEDS: ETOMIDATE 2 MG/ML inj 10 MG IVP (21:16)
--- NOTE | 2024-12-21 21:32 | ED_ITS ---
ED Chart Note Chart Note Details Date: 12/21/24 Details: I was asked by Dr. Carrasquillo to assist with IV sedation/conscious sedation for synchronized cardioversion. Patient was consented on procedural sedation and agreed to proceed, risks and benefits were discussed. Please see Dr. Carrasquillo's n ote for details on the cardioversion and patient's medical charge for the visit. Patient was assessed to be appropriate for trial of anesthesia for this procedure. Had appropriate cardiac monitoring, pulse oximetry, capnography and supplemental oxygen. He had had etomidate prior for procedural anesthesia. He was given 10 mg IV etomidate. There were no complications with his sedation, he tolerated this well and was discharge when he met post sedation criteria. His cardioversion was successful, please see visit note for details.
== END 2024-12-21 22:29 | disposition home or self-care (01) ==
PROVIDERS: Emergency Provider Emergency Medicine; PCP Surgery
DX: I48.92 Unspecified atrial flutter (principal)
CPT/HCPCS: 92960; 36415; 80048; 83735; 84484; 85025; 93005; 94761; 99284; J0153; J7030

== ENCOUNTER 2024-12-25 12:08 | Emergency (ER) | payer MEDICARE, OTHER, SELFPAY ==
--- OUTSIDE RECORDS SUMMARY | 2021-08-23 11:09 | XMS_ITS | Continuity of Care Document ---
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 [address] [facility], [id number] , [place]. tel: [phone] OFFICE/OUTPATI ENT VISIT, EST [facility], [address] [place] [address], [id number] , [place] tel: [phone] [facility] headache (chief complaint) Headache 8 Tish Pate. [place], [address] [facility], [place], [address], [place]. tel: [phone] Referring Provider: Cm Mirza [facility] [address] [place] [address], [address]. tel:[phone] OFFICE CONSULTATION [facility], [address] [place] [address], [id number] , [place] tel: [phone] [facility] headache (chief complaint) HeadacheOther assisted (current) drug therapy 8 Schneider Tao. [employer], [address] [employer] [address], [place], [address], [place]. tel:[phone] Referring Provider: Cm Mirza [address], [address]. [phone] [facility], [address] [place] [address], [id number] , [place] tel: [phone] [facility] headache (chief complaint) No Information 8 Schneider Tao. [employer], [address] [address], [place], [address], [place]. tel:[phone] Family History Family Member Type Diagnosis Age At Onset No Information Payers Payer name Insurance type Covered libertarian ID Authoriza tion(s) [employer] To 16 [id number] Social History Type Description Quantity Date Captured Comments Sex Male Smoking Status No Information Chief Complaint And Reason For Visit No Information Reason For Referral Reason For Referral No Information Plan Of Treatment Date Type Action Status Future Order: Lab Order COMPLCRYSTAL HAAS DRUG ANALYSIS, URINE, WITH MED REPORT ([id number]), Ordered on: Ordered History Of Present Illness [...] medical cannabis and has worked with the [facility] dispensary. Reports he has been taking the [...] or neurologic symptoms.Tested for sleep apnea at [facility]-- no significant findings. Dr. Mirza suggested Mr. Rubin come here to explore injections and medical cannabis. States he currently takes excedrin for acute pain relief.Mr. Rubin would like [facility] to assume managment of pain care. headache [...] or neurologic symptoms.Tested for sleep apnea at [facility]-- no significant findings. Underwent PT at -- not helpful. Tried injections at -- not helpful. Reports previous . Has taken for addtional pain relief. Mr. is interested in and would like [facility] to assume managment of pain care. Functional Status Date Functional Assessmen t No Information Instructions Date Instruction Additional Infor mation No Information Assessments Type Assessment Date No Information Patient Care Teams Name Effective Dates (start - stop) Status Members No Information
--- OUTSIDE RECORDS SUMMARY | 2021-08-23 11:09 | XMS_ITS | Continuity of Care Document ---
Author Organization 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, [address] [facility], [id number] , [place] tel: [phone] [facility] No Information 2 Dany Sotomayor. [address] [facility], [id number] , [place]. tel: [phone] OFFICE/OUTPATI ENT VISIT, EST [facility], [address] [place] [address], [id number] , [place] tel: [phone] [facility] headache (chief complaint) Headache 8 Tish Pate. [place], [address] [facility], [place], [address], [place]. tel: [phone] Referring Provider: Cm Mirza [facility] [address] [place] [address], [address]. tel:[phone] OFFICE CONSULTATION [facility], [address] [place] [address], [id number] , [place] tel: [phone] [facility] headache (chief complaint) HeadacheOther snf (current) drug therapy 8 Schneider Tao. [employer], [address], [address], [place]. tel:[phone] Referring Provider: Cm Mirza [address], [address]. tel:[phone] [facility], [address] [place] [address], [id number] , [place] tel: [phone] [facility] headache (chief complaint) No Information 8 Schneider Tao. [employer], [address], [place], [address], [place]. tel:[phone] Family History Family Member Type Diagnosis Age At Onset No Information Payers Payer name Insurance type Covered republican ID Authoriza tion(s) [employer] To 16 [id number] Social History Type Description Quantity Date Captured Comments Sex Male Smoking Status No Information Chief Complaint And Reason For Visit No Information Reason For Referral Reason For Referral No Information Plan Of Treatment Date Type Action Status Future Order: Lab Order CLYDE HAAS DRUG ANALYSIS, URINE, WITH MED REPORT ([id number]), Ordered on: Ordered History Of Present Illness Encounter Date Complaint History Of Prese nt Illness headache (comments) Mr. Rubin i s here for a 3-month follow up s/p medical cannabis certification. Reports current medication regimen provides 75% pain relief. Denies side effects from current medication regimen. Pain is stable. He has completed the certification process for medical cannabis and has worked with the [employer]. Reports he has been taking the tangerines [...] negatives include fever, nausea and vomiting. headache Severity: 2. It occurs intermittently, has chronic duration, and is worse. Location is frontal left and frontal right. There is no radiation. The describes it as Aching. Symptom is aggravated by Sleeping. Relieving factors include prescription drugs. Pertinent negatives include fever. headache (comments) Mr. Rubin i s here [...] or neurologic symptoms.Tested for sleep apnea at [facility]-- no significant findings. Dr. Mirza suggested Mr. Rubin come here to explore injections and medical cannabis. States he currently takes excedrin for acute pain relief.Mr. Rubin would like [facility] to assume managment of pain care. headache Duration: chroni c. headache (comments) Mr. Rubin i s here [...] or neurologic symptoms.Tested for sleep apnea at [facility]-- no significant findings. Underwent PT at -- not helpful. Tried injections at -- not helpful. Reports previous . Has taken for addtional pain relief. Mr. is interested in and would like [facility] to assume managment of pain care. Functional Status Date Functional Assessmen t No Information Instructions Date Instruction Additional Infor mation No Information Assessments Type Assessment Date No Information Patient Care Teams Name Effective Dates (start - stop) Status Members No Information
--- OUTSIDE RECORDS SUMMARY | 2023-08-28 06:30 | XMS_ITS | Continuity of Care Document ---
Author Organization [facility] Address [address] [address] [place] [address] Phone Care Team Providers Care Electrical Systems Design Engineer Name Role Phone Mauricio Zheng MD Unavailable [...] PillCam Capsule 1st Day Offic/outpt E&m New Mod-va Advance Directives Directive Yes / No Effective Date File Name No Information Encounters Encounter Description Practice Location Reason(s) For Visit Diagnoses Date Provider Providers Copied on Encounter Offic/outpt E&m Estab Low-mod [facility], [address] [address], [place], [id number], [place] tel:[phone] [facility] GI Symptoms or Concerns (chief complaint) Incontinence of feces, unspecified fecal incontinence typeAbnormal bowel movement 4 Norm Martínez. [address] [facility], [place], [id number] , [place]. tel:[phone] Referring Provider: Referral Self, USE FOR SELF REFERRALS. [facility], [address] [address], [place], [id number], [place] tel:[phone] [facility] No Information 4 Josesito Willoughby. [address] [facility], [place], [id number] , [place]. tel: [phone] [facility], [address] [address], [place], [id number], [place] tel:[phone] [facility] Anemia, unspecified 1 Dena Valera. [address] [facility], [place], [id number] , [place]. tel: [phone] Referring Provider: Adrien Baig, [address] [place] [address], [address]. tel:[phone] [facility], [address] [address], [place], [id number], [place] tel:[phone] [facility] Anemia, unspecified type 1 Vandana Nunez. [address] [facility], [place], [id number] , [place]. tel: [phone] Referring Provider: Referral Self, USE FOR SELF REFERRALS. Offic/outpt E&m New Mod-hi [facility], [address] [address], [place], [id number], [place] tel:[phone] [facility] Comment (chief complaint) MelenaAnemia, unspecified typeHistory of migraine headachesHistory of atrial fibrillation 1 Vandana Nunez. [address] [facility], [place], [id number] , [place]. tel:[phone] Referring Provider: Referral Self, USE FOR SELF REFERRALS. [facility], [address] [address], [place], [id number], [place] tel:[phone] [facility] No Information 1 Leslee Silva. [address] [facility], [place], [place], [id number] , [place]. tel:[phone] Family History Family Member Type Diagnosis Age [...] Registry Payers Payer name Insurance type Covered alliance party ID Authoriza tion(s) [employer] Sr 16 [id number] Social History Type Description Quantity Date Captured [...] anus. He has been followed by a fire warden and treated with antifungal agent. He also [...] anus. He has been followed by a fire warden and treated with antifungal agent. He also [...]
--- OUTSIDE RECORDS SUMMARY | 2023-08-28 06:30 | XMS_ITS | Continuity of Care Document ---
Author Organization [facility] Address [address] [address] [place] [address] Phone Care Team Providers Care Rail Car Driver Name Role Phone Mauricio Zheng MD Unavailable [...] PillCam Capsule 1st Day Offic/outpt E&m New Mod-fl Advance Directives Directive Yes / No Effective Date File Name No Information Encounters Encounter Description Practice Location Reason(s) For Visit Diagnoses Date Provider Providers Copied on Encounter Offic/outpt E&m Estab Low-mod [facility], [address] [address], [place], [id number], [place] tel:[phone] [facility] GI Symptoms or Concerns (chief complaint) Incontinence of feces, unspecified fecal incontinence typeAbnormal bowel movement 4 Norm Martínez. [address] [facility], [place], [id number] , [place]. tel:[phone] Referring Provider: Referral Self, USE FOR SELF REFERRALS. [facility], [address] [address], [place], [id number], [place] tel:[phone] [facility] No Information 4 Josesito Willoughby. [address] [facility], [place], [id number] , [place]. tel: [phone] [facility], [address] [address], [place], [id number], [place] tel:[phone] [facility] Anemia, unspecified 1 Dena Valera. [address] [facility], [place], [id number] , [place]. tel: [phone] Referring Provider: Adrien Baig, [address] [place] [address], [address]. tel:[phone] [facility], [address] [address], [place], [id number], [place] tel:[phone] [facility] Anemia, unspecified type 1 Vandana Nunez. [address] [facility], [place], [id number] , [place]. tel: [phone] Referring Provider: Referral Self, USE FOR SELF REFERRALS. Offic/outpt E&m New Mod-hi [facility], [address] [address], [place], [id number], [place] tel:[phone] [facility] Comment (chief complaint) MelenaAnemia, unspecified typeHistory of migraine headachesHistory of atrial fibrillation 1 Vandana Nunez. [address] [facility], [place], [id number] , [place]. tel:[phone] Referring Provider: Referral Self, USE FOR SELF REFERRALS. [facility], [address] [address], [place], [id number], [place] tel:[phone] [facility] No Information 1 Leslee Silva. [address] [facility], [place], [place], [id number] , [place]. tel:[phone] Family History Family Member Type Diagnosis Age [...] ID Authoriza tion(s) [employer] Sr 16 [id number] Social History Type Description Quantity Date Captured [...] anus. He has been followed by a roll shop supervisor and treated with antifungal agent. He also [...] anus. He has been followed by a roll shop supervisor and treated with antifungal agent. He also [...]
[2024-12-25] VITALS (22 sets, daily range): BP systolic 105–137; BP diastolic 81–99; PULSE 80–137; RESP 10–27; TEMP 36.4; O2SAT 90–100; BMI 26.4
--- OUTSIDE RECORDS SUMMARY | 2024-12-25 12:10 | XMS_ITS | Data Portability ---
Author Organization [facility] [place], [facility] Address [address] [address] Assessment No assessment recorded. Plan of Treatment [...] By Organization Details Last Modified Time 08/19/2018 [id number] knee arthritis: care instructions Not available 08/19/2018 13:50:30 shoulder pain: care instructions [email or web address] Not available 08/19/2018 13:51:25 Reason for Referral [...] History Nothing Reported. Medical History Condition Response Coronary Artery Disease N HIV or AIDS N Gout N Kidney Stones N Hyperthyroidism N Head Trauma/Injury N Hernia N Hypothyroidism N Lung Disease N Blood Clots N COPD N Depression N Pacemaker N Anxiety Disorder N Arthritis Y Cancer N Stroke N Leg or Foot Ulcers N Neck Injury N High Cholesterol N Liver Disease N Rheumatoid Arthritis N Fibromyalgia N Headaches N Kidney Disease N Heart Problems N Migraines N Thyroid Problems N Anemia N Multiple Sclerosis N [place] Tear N Ulcers N Heart Attack ([place]) N Diabetes N Bleeding Disorder N Seizures/Epilepsy [...] SNOMED-CT Code Diagnosis ICD10 Code Diagnosis Note [id number] Maria De Jesus Barillas MD [facility] [address] [facility] ,[address] [facility] [place] [address] 08/19/2018 11:55:17 08/24/2018 09:58:08 Osteoarthritis of knee [id number] M17.0 Pain of [facility] [id number] M25.519 Health Concerns Section Related Observation LastModified by Organization Detai ls LastModified Time None Recorded Concern Status LastModified by Organization Details LastModified Time None Recorded Advance Directives Directive None Recorded Payers Insurance Date Sequence Insurance Name Policy Number Policy Ramos Covered Member ID Ramos Member ID Guarantor Name 08/19/2018 1 *SELF PAY* Reji Rubin 02/06/2019 1 [employer] CHOICE - [employer] [employer] CHO[facility] PLUS (HMO) [id number] Chente Rubin [id number] Chente Sarabiaen 08/31/2018 1 [employer] CHOICE - [employer] [place] CHOICE PLUS (POS) [id number] Chente Sarabiaen [id number] Chente Sarabiaen 09/30/2018 2 MEDICARE B-MO: [place] Chente Sarabiaen [id number] Chente Sarabiaen Notes Date Note Type Note Provider Name and Address Organization Details Recorded Time 08/19/2018 text/html See Dictated NoteReported bypatient.Notes:SE E DICTATED NOTES Not Available [facility] 08/24/2018 09:19:31
--- OUTSIDE RECORDS SUMMARY | 2024-12-25 12:10 | XMS_ITS | Clinical Summary ---
Author Organization [facility] Address [address], [place] [address] Care Team Providers Care Pupil Personnel Services Director Name Role Phone Adrien Hernandez MD Primary Care Provider [phone] Source Comments You are receiving this document [...] for each transition of care or referral. [place] Allergies No known active allergies Medications * [...] this topic Insurance MEDICARE MANAGED CARE MEDICA bCODE PRIME SOLUTION Care Teams Pupil Personnel Services Director Relationship Specialty Start Date End Date Adrien Hernandez MD [address] [place] [address] PCP - General Family Practice 03/04/18
--- OUTSIDE RECORDS SUMMARY | 2024-12-25 12:10 | XMS_ITS | Clinical Summary ---
Author Organization [facility] Address [address] [address] Phone Care Team Providers Care Claims Vice President Name Role Phone Unavailable Primary Care Provider [...] 07/29/2017 04/02/2023 Overview (04/02/2023): Recently diagnosed at [facility] Paroxysmal atrial fibrillation 04/10/2017 0 04/02/2023 Thoracic [...] Vaccine ( - 2023-2 5 season) 2024 HPV Vaccine (Standing Order) Aged Out No longer eligible based on patient's age to complete this topic Hepatitis B Vaccine (Standin g Order) Aged Out No longer eligible b ased on patient's age to complete this topic Medical Devices Implanted Type Area Primary Special Educator Device Identifier Shelf Expiration Date Model / Serial / Lot Watchman Flx Closure Device N/A: Heart [id number] / NA / NA Description:1.5/3T Max Spatial Gradient: 2500 gauss/cm No coil restrictions Normal Operating Mode Max whole body CARLOS: 2W/kg; whole body 3.2W/kg Scan Duration: 2W/kg whole body average CARLOS for 60min of continuous RF (a sequence or [id number] series/scans without breaks) [facility] MRI Department 04/13/23 Insurance [employer] MEDICARE COST PART A&B
--- OUTSIDE RECORDS SUMMARY | 2024-12-25 12:10 | XMS_ITS | Clinical Summary ---
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 Bone/Tissue /Biologic Right: Ankle [employer]ANE[employer] 09/03/2018 [id number] / [id number] / [id number] G Graft Fascia Sepideh Medium - [id number] Implanted:Qt y: 1 on 09/19/2021 by Dianna Charlton MD at [facility] Bone/Tissue /Biologic Left: Thumb [employer]OSKE[employer] 03/26/2024 [id number] / [id number] / Graft Bone Head Femoral 44mm 934192 - [id number] Implanted:Qt y: 1 on 11/11/2022 by Bonnie Child MD at [facility] Bone/Tissue /Biologic Right: Ankle [employer]LET[employer] 05/04/2026 [id number] / [id number] / Imp Scr Arthrex Blue Locking 3.5x18mm Ar-8935l-18 Implanted:Qt y: 3 on 02/03/2017 by Bonnie Child MD at [facility] Metallic Hardware/An chor Left: Foot ARTHREX AR-8935L- 18 / / AUTOCLAVE D FEBRUARY 03 2017 LOAD 42/03 Imp Scr Arthrex Can 4.0x20mm Ar-8940-20 Implanted:Qt y: 1 on 02/03/2017 by Bonnie Child MD at [facility] Metallic Hardware/An chor Left: Foot ARTHREX AR-8940-2 0 / / AUTOCLAVE D FEBRUARY 03 2017 LOAD 42/03 Imp Plate Arthrex Lapidus Ar-8941 Implanted:Qt y: 1 on 02/03/2017 by Bonnie Child MD at [facility] Metallic Hardware/An chor Left: Foot ARTHREX AR-8941 / / AUTOCLAVE D FEBRUARY 03 2017 LOAD 42/03 Imp Staple Mmi Easyclip Si Forefoot [id number] Eui66-31-40 - [id number] Implanted:Qt y: 1 on 09/19/2021 by Dianna Charlton MD at [facility] Metallic Hardware/An chor Left: Thumb [employer] 07/06/2025 JJU43-85- 13 / / [id number] Imp Staple Mmi Easyclip Si Forefoot [id number] Bga63-48-43 - [id number] Implanted:Qt y: 1 on 09/19/2021 by Dianna Charlton MD at [facility] Metallic Hardware/An chor Left: Thumb [employer] 04/05/2025 SZN84-79- 13 / / [id number] Nail 12mm 150mm Ankl Rt T2 Im Lck Ti Strl Arthds - [id number] Implanted:Qt y: 1 on 11/11/2022 by Bonnie Child MD at [facility] Metallic Hardware/An chor Right: Ankle [employer] [id number] 02/03/2027 6840-2904 S / / [id number] Imp Scr Strk Lock 5.0x40mm Ft 1896-5040s - [id number] Implanted:Qt y: 1 on 11/11/2022 by Bonnie Child MD at [facility] Metallic Hardware/An chor Right: Ankle [employer] [id number] 05/06/2027 5306-4159 S / / [id number] Imp Scr Strk Lock 5.0x40mm Ft 1896-5040s - [id number] Implanted:Qt y: 1 on 11/11/2022 by Bonnie Child MD at [facility] Metallic Hardware/An chor Right: Ankle [employer] [id number] 02/03/2027 7066-9537 S / / [id number] Imp Scr Strk Lock 5.0x32.5mm Ft 1896-5032s - [id number] Implanted:Qt y: 1 on 11/11/2022 by Bonnie Child MD at [facility] Metallic Hardware/An chor Right: Ankle [employer] [id number] 06/05/2027 3936-0602 S / / [id number] Imp Scr Strk Lock 5.0x85mm Ft 1896-5085s - [id number] Implanted:Qt y: 1 on 11/11/2022 by Bonnie Child MD at [facility] Metallic Hardware/An chor Right: Ankle [employer] [id number] 03/06/202718956125-8187 S / / [id number] Imp End Cap Strk T2 Ft Spnial Scr 1826-0003s - [id number] Implanted:Qt y: 1 on 11/11/2022 by Bonnie Child MD at [facility] Metallic Hardware/An chor Right: Ankle [employer] [id number] 03/06/202718258169-5717 S / / [id number] Imp Insert Tornier Tibial Ankle Size 3x9mm Lt [id number] Implanted:Qt y: 1 on 02/03/2017 by Bonnie Child MD at [facility] Total Joint Component/I nsert Left: Ankle [employer] 05/03/2020 XXX443 / [id number] / Imp Insert Tornier Tibial Ankle Base Size 3 [id number] Implanted:Qt y: 1 on 02/03/2017 by Bonnie Child MD at [facility] Total Joint Component/I nsert Left: Ankle [employer] 02/08/2021 EUU274 / [id number] / Imp Comp Tornier Talar Ankle Size 3 Lt [id number] Implanted:Qt y: 1 on 02/03/2017 by Bonnie Child MD at [facility] Total Joint Component/I nsert Left: Ankle [employer] 09/03/2020 [id number] / [id number] / Imp Wire Nitin 0.045x4 - . Implanted:Qt y: 2 on 09/19/2021 by Dianna Charlton MD at [facility] Wire Left: Thumb G SOURCE 78. / 78.202 / [id number] Imp Wire Nitin 0.062x4 - . Implanted:Qt y: 2 on 09/19/2021 by Dianna Charlton MD at [facility] Wire Left: Thumb G SOURCE 78.203 / 78.203 / [id number] Bme Elite [id number] One Nitinol Implant For Use With Dk-300 Drill Bit Kit Implanted:Qt y: 1 on 02/03/2017 by Bonnie Child MD at [facility] Left: Foot 06/05/2021 [id number] / / Graft Bone Infuse Bmp Sm [id number] Implanted:Qt y: 1 on 04/24/2020 by Bonnie Child MD at [facility] Right: Ankle [employer] 03/06/2022 [id number] / / [id number] Graft Bone Infuse Bmp Lg [id number] - [id number] Implanted:Qt y: 1 on 11/11/2022 by Bonnie Child MD at [facility] Right: Ankle [employer] 07/07/2024 [id number] / / [id number] Y T2 3mm X 285mm K-Wire Implanted:Qt y: 1 on 11/11/2022 by Bonnie Child MD at [facility] Right: Ankle 6715-5674 / / Explanted Type Area Security Sme Device Identifier Shelf Expiration Date Model / Serial / Lot Imp Insert Tornier Tibial Ankle Base Size 3 [id number] Implanted:Qty: 1 on 04/28/2017 by Bonnie Child MD at [facility] Explanted:Qty: 1 on 04/24/2020 by Bonnie Child MD at [facility] Total Joint Component /Insert Right: Ankle [employer] 02/14/2021 [id number] / [id number] / Imp Insert Tornier Tibial Ankle Size 3x11mm Rt [id number] Implanted:Qty: 1 on 04/28/2017 by Bonnie Child MD at [facility] Explanted:Qty: 1 on 04/24/2020 by Bonnie Child MD at [facility] Total Joint Component /Insert Right: Ankle [employer] 07/06/2019 TBH515 / [id number] / Agility Total Ankle Components X3 (Discarded) Explanted:Qty: 1 on 04/28/2017 by Bonnie Child MD at [facility] Right: Ankle Kimberly Talaris Xt Size 3 Right Talar Part Short Peg Implanted:Qty: 1 on 04/28/2017 by Bonnie Child MD at [facility] Explanted:Qty: 1 on 04/24/2020 by Bonnie Child MD at [facility] Right: Ankle 04/17/2020 NGZ607 / [id number] / Imp Tibial Tray, Xl, Size 3 Implanted:Qty: 1 on 04/24/2020 by Bonnie Child MD at [facility] Explanted:Qty: 1 on 11/11/2022 by Bonnie Child MD at [facility] Right: Ankle [employer] 03/11/2023 [id number] / / [id number] Imp Kimberly Talaris Tibial Insert Size 3 Right Implanted:Qty: 1 on 04/24/2020 by Bonnie Child MD at [facility] Explanted:Qty: 1 on 11/11/2022 by Bonnie Child MD at [facility] Right: Ankle TORNIER 06/22/2020 AYH334 / [id number] / Imp Kimberly Talaris Xt Talar Part Short Peg Size 3 Right Implanted:Qty: 1 on 04/24/2020 by Bonnie Child MD at [facility] Explanted:Qty: 1 on 11/11/2022 by Bonnie Child MD at [facility] Right: Ankle TORNIER 06/14/2021 [id number] / [id number] / Procedures Procedure Name Priority Date/Time Associated [...] POCT Final Re sult LABORATORY POC [facility] [address] floor, [address] [place] [address], [facility] [phone] from Last 3 Months or Most Recently Relevant to Health Maintenance Insurance MEDICARE [employer] Advance Directives For more information, please contact: [phone] * Full Code (Latest Code Status on [...] 4:08 PM 02/05/2017 3:35 PM Care Teams Simulation Tech Relationship Specialty Start Date End Date Adrien Hernandez MD [address] [place] [address] PCP - General 01/06/17
--- OUTSIDE RECORDS SUMMARY | 2024-12-25 12:10 | XMS_ITS | Data Portability ---
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 Active 2024 [facility] [place] [place] [address], [place], [address], [facility] 19:47:28 Low back pain 848931132 Active 2024 [facility] [place] [place] [address], [place], [address], [facility] 19:47:28 Lumbar segmental dysfunction 915411241 Active 2024 Baljit VelaianquintinVALERI [address], [place], [address], [facility] 19:47:28 Somatic dysfunction of sacral spine 681634051 Active 2024 Baljit Gastelum [place] [address], [place], [address], [facility] 19:47:28 Problem Notes None recorded. Procedures Surgical History Date Name Laterality Status Provider Name and Address Organization Details Recorded Time 54365: Spinal manipulation , 3 to 4 regions completed Stoney [place] [address], [place], [address], [facility] 10/18/2024 12:31:58 18357: Spinal manipulation , 3 to 4 regions completed Stoney [place] [address], [place], [address], [facility] 10/15/2024 14:11:56 82486: Spinal manipulation , 3 to 4 regions completed Baljit Velaainquintin [place] [address], [place], [address], [facility] 10/14/2024 19:47:58 Imaging Results None recorded. Procedure Notes None recorded. Medical Equipment None Reported. Vitals None Recorded Social History None recorded. Functional Status None recorded. Mental Status None recorded. Family History Nothing Reported. Medical History No medical history recorded. Past Encounters Encounter ID Performer Location Encounter Start Date Encounter Closed Date Diagnosis/Indication Diagnosis SNOMED-CT Code Diagnosis ICD10 Code Diagnosis Note [id number] [facility]jit [facility]ERI [facility] [address] [place] [address] 10/14/2024 18:05:09 10/15/2024 11:21:19 Lumbar segmental dysfunction 221526887 M99.03 Low back pain 275124357 M54.50 Somatic dy sfunction of sacral spine 816517290 M99.04 Thoracic s egmental dysfunction 842764683 M99.02 [id number] Stoney [place]ello [place] [facility] [place] [address] [place] [address] 10/15/2024 11:03:45 10/15/2024 15:27:54 Lumbar segmental dysfunction 221672740 M99.03 Low back pain 188180560 M54.50 Somatic dy sfunction of sacral spine 963095891 M99.04 Thoracic s egmental dysfunction 219169191 M99.02 [id number] Stoney [place]ello [place] [facility] [place] [address] [facility] [place] [address] 10/18/2024 10:32:35 10/18/2024 12:46:21 Lumbar segmental dysfunction 164945842 M99.03 Low back pain 930368685 M54.50 Somatic dy sfunction of sacral spine 898312279 M99.04 Thoracic s egmental dysfunction 048894716 M99.02 Health Concerns Section Related Observation LastModified by Organization Detai ls LastModified Time None Recorded Concern Status LastModified by Organization Details LastModified Time None Recorded Advance Directives Directive None Recorded Payers Insurance Date Sequence Insurance Name Policy Number Policy Ramos Covered Member ID Ramos Member ID Guarantor Name 10/14/2024 2 MEDICA - PRIME SOLUTION (MEDICARE REPLACEMENT/A DVANTAGE - HMO) Chente Rubin [id number] Chente Rubin 10/14/2024 1 [place]: [employer] Cehnte Rubin [id number] Chente Rubin 10/14/2024 1 *SELF PAY* Reji Rubin Notes Date Note Type Note Provider Name and Address Organization Details Recorded Time 10/14/2024 text/html HPI - Lumbar SpineReported bypatient.Location: left Quality:aching Severity:moderate Timing:morning Aggravating Factors:walking; lifting; carrying; twisting Alleviating Factors:rest Baljit Gastelum [place] [address], [place], [address], [facility] 10/14/2024 19:48:10 10/15/2024 text/html HPI - Lumbar SpineReported bypatient.Location: left Quality:aching Severity:moderate Timing:morning Aggravating Factors:walking; lifting; carrying; twisting Alleviating Factors:rest Stoney Cabello [place] [address], [place], [address], [facility] 10/15/2024 14:13:36 10/18/2024 text/html HPI - Lumbar SpineReported bypatient.Location: left Quality:aching Severity:moderate Timing:morning Aggravating Factors:walking; lifting; carrying; twisting Alleviating Factors:savita [place]ello [place] [address], [place], [address], [facility] 10/18/2024 12:33:30
--- OUTSIDE RECORDS SUMMARY | 2024-12-25 12:10 | XMS_ITS | Data Portability ---
Author Organization [facility] Address [address] [place] [address] Care Team Providers Care Field Radio Technician Name Role Phone KJ RODAS Primary Care Provider Assessment No assessment recorded. Plan of Treatment Reminders Order Date Submit Date Provider Last Modified By Organization Details Last Modified Time Details Appointments None recorded. Lab PSA, total, serum or plasma [address], [address] [place] [address], [address], 5 10:58:30 testosteron e, total, serum [address] [facility], [address] [place] [address], [address], 5 10:58:21 hemoglobin (Hb), blood [address] [facility], [address] [place] [address], [address], 5 10:58:26 PSA, total, serum or plasma 2023 024 [email or web address] 30 [facility], [address] [place], [address], 4 15:14:47 testosteron e, total, serum 2023 024 [email or web address] 30 [facility], [address] [place], [address], 4 15:14:46 hemoglobin (Hb), blood 2023 024 [email or web address] 30 [facility], [address] [place] [address], [address], 4 15:14:46 testosteron e, total, serum 2022 023 [email or web address] [facility], [address] [place] [address], [address], 3 12:29:25 PSA, total, serum or plasma 2022 023 [email or web address] 30 [facility], [address] [place] [address], [address], 3 08:45:23 testosteron e, total, serum 2022 023 [email or web address] 30 [facility], [address] [place] [address], [address], 3 08:45:23 hemoglobin (Hb), blood 2022 023 [email or web address] 30 [facility], [address] [place] [address], [address], 3 08:45:23 PSA, total, serum or plasma 2021 022 [email or web address] 30 [facility], [address] [place] [address], [address], 2 08:48:27 testosteron e, total, serum 2021 022 [email or web address] 30 [facility], [address] [place] [address], [address], 2 08:48:27 Referral None recorded. Procedures None recorded. Surgeries None recorded. Imaging None recorded. Medication Orders Xyosted 75 mg/0.5 mL subcutaneou s auto-inject or 2023 024 [id number], [address] [place], [place], [phone], 4 10:53:47 Xyosted 75 mg/0.5 mL subcutaneou s auto-inject or 2022 023 [id number], [address] [place], [place], [phone], 3 10:27:30 Xyosted 75 mg/0.5 mL subcutaneou s auto-inject or 2022 023 [id number], [address] [place], [place], [phone], 11:50:48 Xyosted 75 mg/0.5 mL subcutaneou s auto-inject or 2021 022 [email or web address] [facility][id number], [address] [place], [place], [phone], 00:08:40 Patient TargetsNo targets recorded. Patient Instructions Encounter Date Encounter Id Patient Instructions Last Modified By Organization Details Last Modified Time 04/08/2022 [id number] Telephone - 10 minutes Not available 04/08/2022 11:04:02 10/07/2022 [id number] Telephone - 6 minutes Not available 10/07/2022 11:46:16 04/07/2023 [id number] Telephone - 7 minutes Not available 04/07/2023 10:27:29 10/06/2023 [id number] Telephone - 6 minutes Not available 10/06/2023 10:53:46 10/08/2024 [id number] Telephone - 11 minutes Not available 10/08/2024 10:43:42 Reason for Referral None Reported. Results Created Date Observation Date Name Description Value Unit Range Abnormal Flag Note LastModifiedBy Organization Detail LastModifiedTime 09/28/1909/28/2024 HEMOG LOBIN hemoglobin 15.3 g/dL 13.2-1 7.1 normal Not Available [facility] [address] [place], [address], 09/28/2024 08:49:27 09/28/1909/28/2024 TESTO STERO NE, TOTAL , MALES (ADUL T), IA testosterone , total, males (adult), ia 889 NG/dL 250-82 7 high Not Available [facility] [address] [place], [address], 09/28/2024 08:49:29 09/28/1909/28/2024 PSA, TOTAL PSA, total [...] This test was perfo rmed using the Mangia chemi lumin escen t metho d. Value s obtai rom from diffe rent assay metho ds canno t be used inter ledezma harinder . PSA level s, regar dless of value , shoul d not be inter prete d as absol bois forte evide nce of the prese nce or absen ce of disea se. Not Available [facility] [address] [place], [address], 09/28/2024 08:49:30 Result Notes None recorded. 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 Procedures Surgical History Date Name Laterality Status Provider Name and Address Organization Details Recorded Time 09/20/19 21 implantation of penile prosthesis completed Zaheer Grider [facility] 04/08/2022 10:07:35 09/20/19 21 insertion of single incision mid-urethral mini-sling completed Zaheer Grider [facility] 04/08/2022 10:08:14 10/26/19 15 prostatectomy completed Zaheer Grider [facility] 04/08/2022 10:06:57 Imaging Results None recorded. Procedure Notes None recorded. Medical Equipment None Reported. Allergies Allergen ID Allergen Name Allergen Category Reaction Reaction Severity Criticality Documentation Date Start Date Code Code System Note Provider Name and Address Organization Details Recorded Time 272849 naproxen medicatio n Not available Not available Not available 12/23/20192014 7258 RxNorm Not Available [facility] 0 00:42:12 331403 Product containin g 3-hydroxy -3-methyl glutaryl- coenzyme A reductase inhibitor (product) medicatio n myalgias (muscle pain) Not available Not available 04/08/2022 27122 009 SNOMED Zaheer laird [facility] 2 10:26:44 Medications Name [...] Updated DateTime 10/06/2023 182.88 cm 27.1 kg/m2 49148.47 g Brendon Diaz [facility] 10/06/2023 10:12:15 Date Recorded Body height Body mass index (BMI) Body weight Provider Name and Address Organization Details Last Updated DateTime 10/07/2022 182.88 cm 27.9 kg/m2 37276.03 g Rajni Hoang [facility] 10/07/2022 10:57:49 Date Recorded Body height Body mass index (BMI) Body weight Provider Name and Address Organization Details Last Updated DateTime 10/08/2024 182.88 cm 27.8 kg/m2 71721.44 g Tao flores [facility] 10/08/2024 10:11:25 Date Recorded Body height Body mass index (BMI) Body weight Provider Name and Address Organization Details Last Updated DateTime 04/07/2023 182.88 cm 27.9 kg/m2 97311.03 g Rajni Hoang [facility] 04/07/2023 10:02:38 Date Recorded Body height Body mass index (BMI) Body weight Provider Name and Address Organization Details Last Updated DateTime 04/08/2022 182.88 cm 27.4 kg/m2 04647.66 g Zaheer Grider [facility] 04/08/2022 10:26:15 Social History Question Answer [...] Condition Response Other High Blood Pressure Y Kidney Stones Y Depression Y Lung Disease Y Cancer Diabetes Y Bleeding Disorder Heart Disease Y Immunizations Vaccine Type Date Status Note Provider Nam e and Address Organization Details Recorded Time Influenza, adjuvanted, quadrivalent, PF 2 completed Brendon laird [facility] 10/06/2023 10:12:19 COVID-19, mRNA, LNP-S, bivalent, PF, 30 mcg/0.3 mL dose 2 [facility]06[facility] 10:12:19 Influenza, adjuvanted, quadrivalent, PF 3 completed Not Available [facility] 10/08/2024 10:11:53 Influenza, adjuvanted, trivalent, PF 4 completed Not Available [facility] 10/08/2024 10:11:53 Influenza, adjuvanted, trivalent, PF [facility] 10:02:45 Influenza, adjuvanted, trivalent, PF 7 [facility]23 10:02:45 Influenza, adjuvanted, trivalent, PF 8 completed Rajni Hoang null, [facility] 04/07/2023 10:02:45 zoster recombinant 0 completed Rajni Hoang null, [facility] 04/07/2023 10:02:45 zoster recombinant 9 [facility] 10:02:45 Influenza, adjuvanted, quadrivalent, PF 0 completed Rajni laird, [facility] 04/07/2023 10:02:45 Influenza, adjuvanted, quadrivalent, PF 1 completed Rajni Juareza null, [facility] 04/07/2023 10:02:45 COVID-19, mRNA, LNP-S, PF, 30 mcg/0.3 mL dose 1 completed Rajni Morleyoza null, [facility] 04/07/2023 10:02:45 COVID-19, mRNA, LNP-S, PF, 30 mcg/0.3 mL dose 1 completed Rajni Juareza null, [facility] 04/07/2023 10:02:45 COVID-19, mRNA, LNP-S, PF, 30 mcg/0.3 mL dose 1 completed Rajni Juareza null, [facility] 04/07/2023 10:02:45 COVID-19, mRNA, LNP-S, PF, 30 mcg/0.3 mL dose, irwin-sucrose 2 completed Rajni Juareza null, [facility] 04/07/2023 10:02:45 pneumococcal polysaccharide PPV23 2 completed Rajni Juareza null, [facility] 04/07/2023 10:02:45 Tdap 7 completed Rajni Juareza eitan, [facility] 04/07/2023 10:02:45 Tdap 0 completed Rajni Juareza eitan, [facility] 04/07/2023 10:02:45 Tdap 3 completed Rajni Juareza null, [facility] 04/07/2023 10:02:45 Pneumococcal conjugate PCV 13 5 completed Rajni Juareza null, [facility] 04/07/2023 10:02:45 yellow fever live 2 completed Rajni Juareza null, [facility] 04/07/2023 10:02:45 zoster live 9 completed Rajni Juareza null, [facility] 04/07/2023 10:02:45 Influenza, high-dose, trivalent, PF 6 completed Rajni Juareza null, [facility] 04/07/2023 10:02:45 Influenza, high-dose, trivalent, PF 5 completed Rajni Juareza eitan, [facility] 04/07/2023 10:02:45 Influenza, split virus, trivalent, preservative 9 completed Rajni Juareza null, [facility] 04/07/2023 10:02:45 Influenza, split virus, trivalent, preservative 0 completed Rajni Juareza null, [facility] 04/07/2023 10:02:45 Influenza, split virus, trivalent, preservative 3 [facility] 10:02:45 Influenza, split virus, trivalent, preservative 8 [facility] 04/07[facility]23 10:02:45 Influenza, split virus, trivalent, preservative 7 completed Rajni Juareza eitan, [facility] 04/07/2023 10:02:45 Influenza, split virus, trivalent, preservative 2 [facility] 04/07/2023 10:02:45 Influenza, split virus, trivalent, preservative 6 [facility] 04/07/2023 10:02:45 Hep A, adult 8 completed Rajni Juareza eitan, [facility] 04/07/2023 10:02:45 typhoid, ViCPs 8 [facility]23 10:02:45 [facility] B [facility]07[facility]23 10:02:45 Past Encounters Encounter ID Performer Location Encounter Start Date Encounter Closed Date Diagnosis/Indication Diagnosis SNOMED-CT Code Diagnosis ICD10 Code Diagnosis Note [id number] MD YUMIKO Lema_Kaur [address] [place] [address] 04/08/2022 10:00:51 04/11/2022 15:05:20 Carcinoma of prostate 455673309 C61 2. Prostate cancer (HC)- pT2c - [place] 3+4 = 7 - s/p RAL prostatect xavi in October 2014- PSA remains undetectab le (< 0.03)- Follow-up in Mar 2023 with PSA Testostero ne level below reference range 388551562 R79.89 1. Low Testostero ne- testostero ne in good range- continue Xyosted 75 mg SC weekly- check Testostero ne in 6 months- need to monitor Hgb (annually) [id number] Koby Batista MD [facility] [place] [address] 10/07/2022 10:57:06 10/11/2022 09:16:28 Testosterone level below reference range 561930268 R79.89 1. Low Testostero ne- testostero ne in good range- continue Xyosted 75 mg SC weekly- Follow -up in 6 months with Testostero ne and Hgb Carcinoma of prostate 25 5738604 C61 2. Prostate cancer (HC)- pT2c - [place] 3+4 = 7 - s/p RAL prostatect xavi in October 2014- PSA remains undetectab le (< 0.03)- Follow-up in Mar 2023 with PSA [id number] Koby Batista MD [facility] [place] [address] 04/07/2023 10:02:01 04/17/2023 14:02:17 Testosterone level below reference range 688297305 R79.89 1. Low Testostero ne- testostero ne in good range- continue Xyosted 75 mg SC weekly- Follow -up in 6 months with Testostero ne Carcinoma of prostate 25 0218946 C61 2. Prostate cancer (HC)- pT2c - [place] 3+4 = 7 - s/p RAL prostatect xavi in October 2014- PSA remains undetectab le (< 0.03)- Follow-up in February 2024 with PSA [id number] Koby Batista MD [facility] [place] [address] 10/06/2023 09:44:51 10/07/2023 09:57:47 Testosterone level below reference range 234851055 R79.89 1. Low Testostero ne- testostero ne in good range- continue Xyosted 75 mg SC weekly- Follow -up in 12 months with Testostero ne Carcinoma of prostate 25 0146784 C61 2. Prostate cancer (HC)- pT2c - [place] 3+4 = 7 - s/p RAL prostatect xavi in October 2014- PSA (< 0.02)- remains undetectab le- Follow-up in October 2024 with PSA [id number] Koby Batista MD [facility] [address] [place] [address] 10/08/2024 10:10:57 10/13/2024 12:00:01 Testosterone level below reference range 208746488 R79.89 1. Low Testostero ne- testostero ne in good range- continue Xyosted 75 mg SC weekly- Follow-up in 12 months with Testostero ne Carcinoma of prostate 25 8692812 C61 2. Prostate cancer (HC)- pT2c - [place] 3+4 = 7 - s/p RAL prostatect [...] 1 MEDICA (MEDICARE REPLACEMENT/ ADVANTAGE - PPO) [id number] Chente Rubin [id number] Chente Rubin Notes Date Note Type Note [...] stem-cell inject for ED in October in [place]. He tried Oxybutynin ER 5 mg daily (no changed). He has tried Androgel 50 mg daily and 100 mg daily - still has low Testosterone.09/19/20 - IPP and Coloplast male urethral sling placement ([place] - Dr. Ashok Goins)10/08/21 - He presents [...] and coordinate their care. Koby Batista MD [address] [place] [address],[address], [place], [address] 04/16/2022 23:09:44 10/07/2022 text/html 77 yo [...] stem-cell inject for ED in October in [place]. He tried Oxybutynin ER 5 mg daily (no changed). He has tried Androgel 50 mg daily and 100 mg daily - still has low Testosterone. 09/19/20 - IPP and Coloplast male urethral sling placement ([place] - Dr. Ashok Goins) 04/08/22 - He [...] and coordinate their care. Koby Batista MD [address] [place] [address],[address], [place], [address], [facility] [place] [facility] 10/07/2022 11:50:55 04/07/2023 text/html 77 yo [...] stem-cell inject for ED in October in [place]. He tried Oxybutynin ER 5 mg daily (no changed). He has tried Androgel 50 mg daily and 100 mg daily - still has low Testosterone. Prostate cancer - pT2c No Mx - [place] 3+4=7 - s/p RALP (10/25/14) - (Dr. Pulido) - negative margins - no recurrance to date. 09/19/20 - IPP and Coloplast male urethral sling placement ([place] - Dr. Ashok Goins) 10/07/22 - He [...] and coordinate their care. Koby Batista MD [address] [place] [address],[address], [place], [address] 04/07/2023 10:30:16 10/06/2023 text/html 78 yo [...] stem-cell inject for ED in October in [place]. He tried Oxybutynin ER 5 mg daily [...] IPP and Coloplast male urethral sling placement ([place] - Dr. Ashok Goins) 10/07/22 - He [...] and coordinate their care. Koby Batista MD [address] [place] [address],[address], [place], [address] [place] [facility] 10/06/2023 10:54:07 10/08/2024 text/html 79 yo [...] stem-cell inject for ED in October in [place]. He tried Oxybutynin ER 5 mg daily [...] IPP and Coloplast male urethral sling placement ([place] - Dr. Ashok Goins) 04/07/23 - He [...] stones in either kidney Current patient location: [place] Current MD/ASHLEY location: [place] HIPAA compliant platform used: yes Prior to [...] and coordinate their care. Koby Batista MD [address] [place] [address],[address], [place], [address], [facility] [place] [facility] 10/08/2024 10:44:00
--- OUTSIDE RECORDS SUMMARY | 2024-12-25 12:11 | XMS_ITS | Clinical Summary ---
Author Organization [employer] [facility] Address [facility] [place] [address] Care Team Providers Care Solutions Sales Consultant Name Role Phone Adrien Hernandez MD Primary Care Provider [phone] Allergies Active Allergy Reactions Criticality Noted Date [...] unspecified type (HC),Sinus node dysfunction (HC) Take 0.5 Tablets (100 mg) by mouth once daily. Do NOT take any the day before the ablation or the morning of. 30 Tablet 025 Active aspirin (ECOTRIN) 81 mg enteric [...] mouth two times daily. 60 Tablet 2 11/18/19 25 4:24 PM CDT 025 2024 Discontinued(* Med complete/Regim en complete/Level of care change) amiodarone 200 mg tabletIndications :Paroxysmal atrial fibrillation (HC),Atrial fibrillation, unspecified type (HC),Sinus node dysfunction (HC) Take 1 Tablet (200 mg) by mouth two times daily. Amiodarone 200 mg twice daily until further notice after your cardioversion 120 Tablet 025 2024 Discontinued amiodarone 200 mg tabletIndications :Paroxysmal atrial fibrillation (HC),Atrial fibrillation, unspecified type (HC),Sinus node dysfunction (HC) Take 1 Tablet (200 mg) by mouth once daily. Hold amiodarone beginning 12/21/2024 025 2024 Discontinued(* Medication adjustment) Active Problems Patient Care Coordination No te Formatting of this note migh t be different from the original. HF/Structural/Prevention Research Eligibility Review Date: 06/22/19 Upcoming Visit Location: [facility] Age: 74 y.o. Insurance: Medicare EF: 74 LVID: Valve/Imaging: Mild MR, trace TR, mild /no AR Cardiac Devices: Comments: HF: DNQ Structural: Tendyne Fletcher: No d/t mild MR Prevention: DNQ Problem [...] lung 07/29/2017 Overview (07/29/2017): Recently diagnosed at [facility] Paroxysmal atrial fibrillation 04/10/2017 Thoracic aortic aneurysm [...] Encounters Date Type Department Care Team Description 12/25/2024 Telephone [facility] [address] [place] [address] Ti Goodman MD Concerns (A-fib) 12/24/2024 9:47 AM CDT - 12/24/2024 11:59 PM CDT Hospital Encounter [address] [address] 12/24/2024 Nurse Triage [facility] [address] [place] [address] Stefanie Avilez RN Atrial Fibrillation 12/24/2024 Travel 12/22/2024 9:39 AM CDT - 12/22/2024 11:59 PM CDT Hospital Encounter [facility] [address] [place] [address] 12/22/2024 Travel 12/21/2024 Telephone [facility] [address] [address] Anton Goodwin MD Fast Heartbeat 12/20/2024 9:42 AM CDT - 12/20/2024 11:59 PM CDT Hospital Encounter [facility] [address] [place] [address] 12/20/2024 Travel 12/17/2024 9:50 AM CDT - 12/17/2024 11:59 PM CDT Hospital Encounter [facility] [address] [place] [address] 12/17/2024 Travel 12/15/2024 12:16 PM CDT Anesthesia Event [facility] [address] [place] [address] Edna Cardozo MD Geniesse, Brian Christopher, RAYMOND 12/15/2024 10:18 AM CDT - 12/15/2024 1:40 PM CDT Hospital Encounter [facility] [address] [place] [address] Anton Goodwin MD Presence of Watchman left atrial appendage closure device; Paroxysmal atrial fibrillation (HC); Atrial fibrillation, unspecified type (HC); Sinus node dysfunction (HC) Discharge Disposition: Home Self Care 12/15/2024 Travel 12/13/2024 8:10 AM CDT - 12/13/2024 11:59 PM CDT Hospital Encounter [facility] [address] [place] [address] Ketty Fuentes PA S/P AVR 12/13/2024 Telephone [facility] [address] [address] Ti Goodman MD Questions 12/13/2024 Travel 12/12/2024 Telephone [facility] [address] [address] Anton Goodwin MD Questions 12/10/2024 9:43 AM CDT - 12/10/2024 11:59 PM CDT Hospital Encounter [facility] [address] [place] [address] 12/10/2024 Travel 12/08/2024 9:43 AM CDT - 12/08/2024 11:59 PM CDT Hospital Encounter [facility] [address] [place] [address] 12/08/2024 Travel 12/06/2024 8:42 AM CDT - 12/06/2024 11:59 PM CDT Hospital Encounter [facility] [address] [place] [address] Ketty Fuentes PA S/P AVR 12/06/2024 Travel 12/01/2024 8:30 AM CDT Office Visit [place] [address] [facility] [address] [place] [address] Anton Goodwin MD Follow Up (F/U for PAF) 11/30/2024 Travel 11/30/2024 Telephone [facility] [address] [facility] [address] [place] [address] Ti Goodman MD Atrial Fibrillation (AF post AVR.) 11/18/2024 10:15 AM CDT Office Visit [facility] [address] [place] [address] Adrien Hernandez MD Post-op (Light headed and dizzy) 11/18/2024 Travel 11/18/2024 Patient Outreach [facility] [address] [place] [address] Cheyenne Cooper RN Primary RN Care Management; Hospital F/U (LACE 61) 11/16/2024 12:54 PM CDT - 11/17/2024 4:37 PM CDT Hospital Encounter [facility] [address] [address] Marcellus Martínez MD [facility], [facility] Hospitalists Of Jcarlos Snow MBBS Ide, Emma Merritt, DO Atrial fibrillation with rapid ventricular response (HC) (Primary Dx) Discharge Disposition: Home Self Care 11/16/2024 Travel 11/16/2024 Telephone [facility] [address] [address] Rosie Wallis, ISELA Arrhythmia (1st documentation afib) 11/16/2024 Telephone [facility] [address] [address] Ti Goodman MD Arrhythmia (/) 11/15/2024 Nurse Triage [facility] [address] [address] Shelley Hernandez, ISELA Atrial Fibrillation 11/12/2024 Travel 11/12/2024 Patient Outreach [facility] [address] [place] [address] Caryl Ashby, RN Primary RN Care Management; Hospital F/U (LACE 36) 11/10/2024 8:53 AM CDT Anesthesia Event [facility] [address] [place] [address] Edna Cardozo MD 11/04/2024 7:52 AM CDT Anesthesia Event [facility] [address] [place] [address] Enrique Griffin MD Geist, Linh Tran, MANAGER TALENT MANAGEMENT 11/04/2024 7:30 AM CDT - 11/04/2024 2:17 PM CDT Surgery [facility] [address] [place] [phone] Florencio Rhodes MD INTRA-OP PABLO PERFORMED BY DR. GRIFFIN, MADAI-STERNOTOMY, AORTIC VALVE REPLACEMENT WITH 25MM INSPIRIS, ASCENDING AORTIC ANEURYSM REPAIR WITH 28MM STRAIGHT GELWEAVE GRAFT, PLACEMENT OF TEMPORARY VENTRICULAR PACING WIRES 11/04/2024 5:51 AM CDT - 11/11/2024 2:13 PM CDT Hospital Encounter [facility] [address] [place] [address] Florencio Rhodes MD S/P AVR (aortic valve replacement) and ascending aortic replacement (Primary Dx); Paroxysmal atrial fibrillation (HC); HTN (hypertension); Chronic atrial fibrillation (HC); S/P AVR Discharge Disposition: Home Self Care 11/04/2024 Travel 11/02/2024 9:05 AM CDT Office Visit [facility] [address] [place] [address] Kathy Reyna PA Fatigue 11/02/2024 Travel 11/01/2024 Telephone [facility] [address] [place] [address] Zenobia Jennings, RN Appointment 10/28/2024 10:00 AM CDT Phone Office Visit [facility] [address] [place] [address] Ashley Orona, ISELA Education (Pre Open Heart Surgery Education ) 10/26/2024 2:40 PM CDT Office Visit [facility] [address] [place] [address] Donny Kirkpatrick MD Procedure (L5-S1 ILESI) 10/25/2024 2:15 PM CDT Office Visit [facility] [address] [place] [address] Adrien Hernandez MD Preoperative Exam (DOS: 11/04/24 ANW/FLORENCIO RHODES /REPLACEMENT AORTIC VALVE W/PABLO, ASCENDING AORTIC ANEURYSM REPAIR, POSSIBLE MADAI-STERNOTOMY/REPAI R ASCENDING AORTIC ANEURYSM/MADAI-STERNOT MICHAELA AORTIC VALVE REPLACEMENT) 10/25/2024 Refill [facility] [address] [place] [address] Adrien Hernandez MD Refill Request (Celecoxib) 10/24/2024 Travel 10/22/2024 Orders Only [facility] Scanner 1 scan: (1-Ord) [facility], INTRA-ARTICULAR THERAPEUTIC INJ OF THE LT HIP JOINT, 10/22/2024 10/20/2024 Telephone [facility] [address] [place] [address] Remigio Loving MD Appointment 10/20/2024 Telephone [facility] [address] [place] [address] Adrien Hernandez MD Error-please disregard (error) 10/20/2024 Telephone [facility] [address] [place] [address] Remigio Loving MD questions for up coming heaart surgery (Forwarding message to Cardiology team) 10/20/2024 Travel 10/19/2024 3:05 PM CDT Telemedicine [facility] [address] [place] [address] Remigio Loving MD Musculoskeletal Problem (Lower Left back pain - has been ongoing x years/LEFT Buttock, Hip , into groin and down LEFT leg) 10/19/2024 9:45 AM CDT Ancillary Procedure [facility] [address] [place] [address] 10/19/2024 9:05 AM CDT Office Visit [facility] [address] [place] [address] Kathy Reyna PA Cough 10/19/2024 Orders Only [facility] [address] [facility] [address] [place] [address] Ricardo Hammond MD <No scans attached> 10/19/2024 Telephone [facility] [address] [place] [address] Ti Goodman MD Medication Management 10/19/2024 Travel 10/19/2024 Telephone [facility] [address] [place] [phone] Ashley Orona RN Questions 10/19/2024 Telephone [facility] [address] [place] [address] Adrien Hernandez MD Questions (follow up question ) 10/18/2024 1:30 PM CDT Orders Only [facility] [address] [place] [address] Lab, [place] [facility] 10/18/2024 Travel 10/14/2024 Telephone [facility] [address] [place] [phone] Florencio Rhodes MD Phone Visit 10/13/2024 Orders Only [facility] Scanner 1 scan: (1-Ord) [facility], XR HIP LT MIN 2V, 10/13/2024 10/13/2024 Travel 10/05/2024 Telephone [facility] [address] [place] [phone] Ti Goodman MD Questions (Post surgery follow up ) 10/04/2024 3:30 PM CDT Office Visit [facility] [address] [place] [address] Adrien Hernandez MD Pre-Op Exam (Arotic valve replacement ANW with on 10/19) 10/04/2024 10:30 AM CDT Phone Office Visit [facility] [address] [place] [address] Gabriel Antony, ISELA Education (Pre Open Heart Surgery Education ) 10/04/2024 Travel 09/29/2024 Travel 09/27/2024 11:15 AM CDT Orders Only [facility] [address] [place] [address] Lab, [facility] 09/27/2024 Travel 09/24/2024 Telephone [facility] [address] [place] [address] Adrien Hernandez MD Error-please disregard from Last 3 Months Immunizations Immunization Administration [...] on file Legal Sex Male 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 [address] [facility] [place] [address] 12/28/2024 8:00 AM CDT Appointment [facility] [address] [place] [address] Ti Goodman MD [address] [address] 12/29/2024 10:[address] [facility] [address] [place] [address] 12/31/2024 10:[address] [facility] [address] [place] [address] 01/03/2025 10:[address] [facility] [address] [place] [address] 01/05/2025 10:[address] [facility] [address] [place] [address] 01/10/2025 10:[address] [facility] [address] [place] [address] 01/12/2025 10:[address] [facility] [address] [place] [address] 01/14/2025 10:[address] [facility] [address] [place] [address] 01/17/2025 10:[address] [facility] [address] [place] [address] 01/19/2025 10:00 AM CDT Appointment [address] [place] [address] 01/21/2025 10:[address] [facility] [address] [place] [address] 01/24/2025 10:[address] [facility] [address] [place] [address] 01/26/2025 10:[address] [facility] [address] [place] [address] 01/28/2025 10:[address] [facility] [address] [place] [address] 01/31/2025 10:[address] [facility] [address] [place] [address] 02/02/2025 10:[address] [facility] [address] [place] [address] 02/04/2025 10:[address] [facility] [address] [place] [address] 02/07/2025 10:[address] [facility] [address] [place] [address] 02/09/2025 10:[address] [facility] [address] [place] [address] 02/11/2025 10:[address] [facility] [address] [place] [address] 02/14/2025 10:[address] [facility] [address] [place] [address] 02/16/2025 10:[address] [facility] [address] [place] [address] 02/18/2025 10:[address] [facility] [address] [facility] [place] [address] 02/21/2025 10:[address] [facility] [address] [facility] [place] [address] 02/23/2025 10:[address] [facility] [address] [place] [address] 02/25/2025 10:[address] [facility] [address] [facility] [place] [address] Health Maintenance Due Date Last Done Comments [...] history exists Medical Devices Implanted Type Area Career Developer Device Identifier Shelf Expiration Date Model / Serial / Lot Amnio Fix 2.0x12.0cm Implanted:Qty: 1 on 10/25/2014 at [facility] [id number] / / [id number] Description:AMNIO FIX 2.0X12 .0CM Valve Aortic 25mm Inspirus Resilia Tissue - [id number] Implanted:Qty: 1 on 11/04/2024 by Florencio Rhodes MD at [facility] N/A: Aortic Valve [employer] Itzel [id number] 07/05/2029 [id number] / [id number] / Description:Aortic valve-MARK VE AORTIC 25MM INSPIRUS RESILIA TISSUE by agencyQ, Ref:[id number], SN:[id number], Exp:07-05-2029, implanted by Dr. Rhodes on 11-04-2024 Graft Vasc 71tok95ft Vascutek Gelweave Stra - [id number] Implanted:Qty: 1 on 11/04/2024 by Florencio Rhodes MD at [facility] N/A: Aorta [employer] 07/06/2027 [id number] / [id number] / Description:Aorta-GRAFT VASC [id number] VASCUTEK GELWEAVE STRAIGHT by [employer], Ref:[id number]. SN:[id number], Exp:07-06-2027, implanted by Dr. Rhodes on 11-04-2024 Procedures Procedure Name Priority Date/Time Associated Diagnosis Comments SCAN-CARDIAC REHABILITATION 12/24/2024 9:52 AM CDT SCAN-CARDIAC REHABILITATION 12/22/2024 9:50 AM CDT SCAN-CARDIAC REHABILITATION 12/20/2024 9:54 AM CDT SCAN-CARDIAC [...] 9:22 AM CDT Chronic atrial fibrillation (HC) WI READING EKG - NO CHARGE, COMP ONLY [...] KIT PR5 Routine 11/04/2024 8:46 AM CDT AHC AN INTRODUCER 1 LUMEN PERFORMABLE Routine 11/04/2024 8:46 AM CDT HCHG DRSG PR1 Routine 11/04/2024 8:46 AM CDT HCHG DRSG PR5 Routine 11/04/2024 8:46 AM CDT HCHG TUBING PR5 Routine 11/04/2024 8:46 AM CDT [facility] KIT MONITORING PR5 Routine 11/05/19 8:46 AM CDT [facility] CATH INFUSION PR30 Routine 11/05/19 25 8:46 AM CDT H[facility]G ANES US GUIDE [...] TUBING PR1 Routine 11/04/2024 7:33 AM CDT HC ANES ARTERIAL CATH FOR SAMPLE MONITOR TRANS Routine 11/04/2024 7:33 AM CDT HCHG ANES US GUIDE FOR VASC ACCESS Routine 11/04/2024 7:33 AM CDT [facility] CATH PR5 Routine 11/04/2024 7:33 AM CDT MADAI-STERNOTOMY AORTIC VALVE REPLACEMENT 11/04/2024 7:22 AM CDT [...] 8:03 AM CDT Lumbar radiculopathy Lumbar spondylosis WI NJX DX/THER SBST INTRLMNR LMBR/SAC W/IMG GDN [...] to Health Maintenance Results * SCAN-CARDIAC REHABILITATION (12/24/2024 9:52 AM CDT) Only the most recent of7 resultswithin the time period is included. us [...] NOW QTc 491 ms BEYOND NOW P [place] 86 degrees BEYOND NOW R [place] 16 degrees BEYOND NOW T [place] 33 degrees BEYOND NOW 12/15/2024 12:2 7 PM CDT 12/16/2024 7:09 PM CDT Narrative BEYOND NOW - 12/16/2024 7:09 PM CDT Test Indication: post Vesna SWENSON EKG ORD Final Result BEYOND NOW [place], [place] * EP CARDIOVERSION (12/15/2024 12:26 PM CDT) Anatomical Region Laterality Modality X-Ray Angiograph y Narrative 12/15/2024 12:26 PM CDT Gianni Zarate MD 12/15/2024 12:36 PM [facility] Cardiac Electrophysiology Procedure Note DOS: 12/15/2024 Brief History: Chente Rubin is a pleasant 79 y.o. with history of atrial arrhythmias who now presents to [facility] N[facility] since midnight for direct current cardioversion. On ASA 81 mg daily S/P Watchman. Procedure Description: Time out was called. Brief general anesthesia by anesthesia service. Cardioversion patches were placed in an anterior/posterior position. One synchronized 200 J shock was delivered with successful congregation of SR, VRs 70s. Complications: No acute complications. Plan: Chente Rubin is now recovering from sedation and anticipate discharge home later today. Dr. Zarate was the collaborating physician throughout the time services were performed. Vesna Rodriguez PA-C [facility] Cardiac Electrophysiology Services Anton Goodwin MD CV IMAGING F inal Result * ISTAT CHEM 8 (12/15/2024 11:34 AM CDT) Pathologist [facility] SODIUM, POCT 12/16/2024 3:52 PM CDT [facility] Comment:Unable to determine. POTASSIUM, POCT 4.2 3.5 - 5.0 mmol/L 12/16/2024 3:52 PM CDT [facility] CHLORIDE, POCT 12/16/2024 3:52 PM CDT [facility] Comment:Unable to determine. CO2,TOTAL, POCT 12/16/2024 3:52 PM CDT [facility] Comment:Unable to determine. ANION GAP, POCT 12/16/2024 3:52 PM CDT [facility] Comment:Unable to calculate. GLUCOSE, POCT 12/16/2024 3:52 PM CDT [facility] Comment:Unable to determine. IONIZED CALCIUM, POCT 12/16/2024 3:52 PM CDT [facility] Comment:Unable to determine. BUN, POCT 12/16/2024 3:52 PM CDT [facility] Comment:Unable to determine. CREATININE, POCT 12/16/2024 3:52 PM CDT [facility] Comment:Unable to determine. BUN/CREAT RATIO, POCT 12/16/2024 3:52 PM CDT [facility] Comment:Unable to calculate. eGFR 12/16/2024 3:52 PM CDT [facility] Comment:Unable to calculate. HEMATOCRIT, POCT 12/16/2024 3:52 PM CDT [facility] Comment:Unable to determine. HEMOGLOBIN, POCT 12/16/2024 3:52 PM CDT [facility] Comment:Unable to determine. Blood BLOOD SPECIMEN / Unknown 12/15/2024 11:34 AM CDT 12/16/2024 3:52 PM CDT Anton Goodwin MD CHEMISTRY F inal Result [facility] [address] [place] [address], [place] * SCAN-CARDIAC STRIP (12/15/2024 12:00 AM [...] The ascending aortic repair is intact. The hamilton aorta above the graft repair is borderline at 36 x 36 mm. The left atrial appendage has been successfully excluded with a Watchman device. There is no evidence for contrast in the device or around the device. MD TORIBIO Dumont/alec Narrative 12/13/2024 11:20 AM CDT Results are automatically released to your [employer]) account once available, in compliance with federal [...] conjunction with the services provided by the [facility] ([facility]). INDICATION: Cardiac over-read. FINDINGS: Aorta: This is [...] performed in [facility] INDICATION: Cardiac over-read. FINDINGS: Aorta: This is [...] Ketty SWENSON CT Final Res ult * WI READING EKG - NO CHARGE, COMP ONLY (11/19/2024 9:21 AM CDT) Adrien Hernandez MD PB - PROVIDER READINGS Fin al Result * (ABNORMAL) HEMOGLOBIN (11/18/2024 11:31 AM CDT) Only the most recent of10 resultswithin the time period is included. [facility] HEMOGLOBIN 9.7(L) 13.2 - 17.1 g/dL [facility] Blood BLOOD SPECIMEN / Unknown 11/18/2024 11:31 AM CDT 11/18/2024 11:32 AM CDT Adrien Hernandez MD HEMATOLOGY Final Resu lt [employer] [facility] [address] [place] [address], [place] [phone] [facility] [address] [place] [address] * PLATELET COUNT (11/17/2024 7:57 AM CDT) Only the most recent of3 resultswithin the time period is included. [facility] PLATELET COUNT 367 140 - 440 thou/cu mm 11/17/2024 8:38 AM CDT [facility] MPV 9.4 6.5 - 11.0 fL 11/17/2024 8:38 AM CDT [facility] Blood BLOOD SPECIMEN / Unknown Venipuncture / Unknown 11/17/2024 7:57 AM CDT 11/17/2024 8:[address] [facility] HEMATOLOGY Sara l Result Performing Organization Address City/[facility] Co de Phone Number [facility] [address] [place] [address], [place] * (ABNORMAL) WHITE BLOOD COUNT (11/17/2024 7:57 AM CDT) WHITE BLOOD COUNT 11.3(H) 4.5 - 11.0 thou/cu mm 11/17/2024 8:38 AM CDT [facility] NRBC 0.0 % 11/17/2024 8:38 AM CDT [facility] ABS NRBC 0.0 thou /cu mm 11/17/2024 8:38 AM CDT [facility] Blood BLOOD SPECIMEN / Unknown Venipuncture / Unknown 11/17/2024 7:57 AM CDT 11/17/2024 8:[address] [facility] HEMATOLOGY Sara l Result Performing Organization Address City/[facility] Co de Phone Number [facility] [address] [place] [address], [place] * SODIUM (11/17/2024 7:57 AM CDT) Only the most recent of3 resultswithin the time period is included. SODIUM 137 136 - 145 mmol/L 11/17/2024 8:54 AM CDT [facility] Blood BLOOD SPECIMEN / Unknown Venipuncture / Unknown 11/17/2024 7:57 AM CDT 11/17/2024 8:26 AM CDT Jcarlos [employer] CHEMISTRY Sara l Result Performing Organization Address City/[facility] Co de Phone Number [facility] [address] [place] [address], [place] * POTASSIUM (11/17/2024 7:57 AM CDT) Only the most recent of6 resultswithin the time period is included. POTASSIUM 4.6 3.5 - 5.1 mmol/L 11/17/2024 8:54 AM CDT [facility] Blood BLOOD SPECIMEN / Unknown Venipuncture / Unknown 11/17/2024 7:57 AM CDT 11/17/2024 8:26 AM CDT Jcarlos Beckhamjudy [facility] CHEMISTRY Sara l Result Performing Organization Address [facility] Phone Number [facility] [address] [place] [phone], [place] * (ABNORMAL) CREATININE (11/17/2024 7:57 AM CDT) Only the most recent of3 resultswithin the time period is included. eGFR 65(L) >90 mL/min/1.7 3m2 11/17/2024 8:54 AM CDT [facility] Comment:As of 2021, eG FR is calculated by the CKD-EPI creatinine equation without race adjustment. eGFR can be influenced by muscle mass, exercise, and diet. The reported eGFR is an estimation only and is only applicable if the renal function is stable. CREATININE 1.16 0.70 - 1.20 mg/dL 11/17/2024 8:54 AM CDT [facility] Blood BLOOD SPECIMEN / Unknown Venipuncture / Unknown 11/17/2024 7:57 AM CDT 11/17/2024 8:26 AM CDT Jcarlos Beckhamrobel[employer] [facility] CHEMISTRY Sara l Result Performing Organization Address City/[facility] de Phone Number [facility] [address] [place] [phone], * MAGNESIUM (11/17/2024 7:57 AM CDT) Only the most recent of12 resultswithin the time period is included. MAGNESIUM 2.0 1.6 - 2.4 mg/dL 11/17/2024 8:54 AM CDT [facility] Blood BLOOD SPECIMEN / Unknown Venipuncture / Unknown 11/17/2024 7:57 AM CDT 11/17/2024 8:26 AM CDT us Jcarlos CANTRELLBS CHEMISTRY Sara l Result [facility] [address] [place] [id number], [place] * SCAN-CARDIAC STRIP (11/17/2024 7:49 AM [...] WITH AUTO DIFFERENTIAL (11/16/2024 1:27 PM CDT) WHITE BLOOD COUNT 10.0 4.5 - 11.0 thou/cu mm 11/16/2024 2:21 PM T [facility] RED BLOOD COUNT 3.36(L) 4.30 - 5.90 mil/cu mm 11/16/2024 2:21 PM T [facility] HEMOGLOBIN 10.5(L) 13.5 - 17.5 g/dL 11/16/2024 2:21 PM T [facility] HEMATOCRIT 33.0(L) 37.0 - 53.0 % 11/16/2024 2:21 PM T [facility] MCV 98 80 - 100 fL 11/16/2024 2:21 PM [facility] MCH 31.3 26.0 - 34.0 pg 11/16/2024 2:21 PM [facility] MCHC 31.8(L) 32.0 - 36.0 g/dL 11/16/2024 2:21 PM [facility] RDW 15.9(H) 11.5 - 15.5 % 11/16/2024 2:21 PM [facility] PLATELET COUNT 413 140 - 440 thou/cu mm 11/16/2024 2:21 PM [facility] MPV 8.8 6.5 - 11.0 fL 11/16/2024 2:21 PM [facility] NRBC 0.0 % 11/16/2024 2:21 PM [facility] ABS NRBC 0.0 thou /cu mm 11/16/2024 2:21 PM [facility] % NEUT 80.5 % 11/16/2024 2:21 PM T [facility] % LYMPH 5.4 % 11/16/2024 2:21 PM T [facility] % MONO 8.2 % 11/16/2024 2:21 PM T [facility] % EOS 4.5 % 11/16/2024 2:21 PM CDT [facility] % BASO 0.4 % 11/16/2024 2:21 PM CDT [facility] % IMMATURE GRAN (METAS,MYELOS,WI OS) 1.0 % 11/16/2024 2:21 PM CDT [facility] ABSOLUTE NEUTROPHILS 8.0(H) 1.7 - 7.0 thou/cu mm 11/16/2024 2:21 PM CDT [facility] ABSOLUTE LYMPHOCYTES 0.5(L) 0.9 - 2.9 thou/cu mm 11/16/2024 2:21 PM CDT [facility] ABSOLUTE MONOCYTES 0.8 <0.9 thou/cu mm 11/16/2024 2:21 PM CDT [facility] ABSOLUTE EOSINOPHILS 0.5(H) <0.5 thou/cu mm 11/16/2024 2:21 PM CDT [facility] ABSOLUTE BASOPHILS 0.0 <0.3 thou/cu mm 11/16/2024 2:21 PM CDT [facility] ABSOLUTE IMMATURE GRANULOCYTES(MET ,MYELOS,PROS) 0.1 <0.3 thou/cu mm 11/16/2024 2:21 PM CDT [facility] Blood BLOOD SPECIMEN / Unknown Non-Lab Venipuncture / Unknown 11/16/2024 1:27 PM CDT 11/16/2024 1:33 PM CDT us Marcellus Martínez MD HEMATOLOGY Final R esult [facility] [address] [place] [address], * (ABNORMAL) PLATELET ESTIMATE (11/16/2024 1:27 PM CDT) Only the most recent of2 resultswithin the time period is included. PLATELET ESTIMATE Platelets are clumped and appear adequate in number(A) Adequate, No estimate 11/16/2024 2:20 PM CDT [facility] Blood BLOOD SPECIMEN / Unknown Non-Lab Venipuncture / Unknown 11/16/2024 1:27 PM CDT 11/16/2024 1:33 PM CDT us Marcellus Martínez MD HEMATOLOGY Final R esult [facility] [address] [place] [address], * (ABNORMAL) BASIC METABOLIC PANEL (11/16/2024 1:27 PM CDT) Only the most recent of7 resultswithin the time period is included. SODIUM 138 136 - 145 mmol/L 11/16/2024 2:04 PM CDT [facility] POTASSIUM 4.4 3.5 - 5.1 mmol/L 11/16/2024 2:04 PM CDT [facility] CHLORIDE 101 98 - 107 mmol/L 11/16/2024 2:04 PM CDT [facility] CO2,TOTAL 23 22 - 29 mmol/L 11/16/2024 2:04 PM CDT [facility] ANION GAP 14 5 - 18 11/16/2024 2:04 PM CDT [facility] GLUCOSE 97 70 - 99 mg/dL 11/16/2024 2:04 PM CDT [facility] CALCIUM 9.3 8.8 - 10.4 mg/dL 11/16/2024 2:04 PM CDT [facility] Comment: Reference ranges for this test were updated on 05/11/2024 to reflect our healthy population more accurately. Reference range changes are not retroactively applied to results, but previous results using the same methodology can be interpreted in the context of the new reference range. BUN 12 8 - 23 mg/dL 11/16/2024 2:04 PM CDT [facility] CREATININE 1.11 0.70 - 1.20 mg/dL 11/16/2024 2:04 PM CDT [facility] BUN/CREAT RATIO 11 10 - 20 2:04 PM CDT [facility] eGFR 68(L) >90 mL/min/1.7 3m2 11/16/2024 2:04 PM CDT [facility] Comment:As of 2021, eG FR is calculated by the CKD-EPI creatinine equation without race adjustment. eGFR can be influenced by muscle mass, exercise, and diet. The reported eGFR is an estimation only and is only applicable if the renal function is stable. Blood BLOOD SPECIMEN / Unknown Non-Lab Venipuncture / Unknown 11/16/2024 1:27 PM CDT 11/16/2024 1:33 PM CDT us Marcellus Martínez MD CHEMISTRY Final R esult [facility] [address] [place] [address], [place] * SCAN-CARDIAC STRIP (11/11/2024 7:16 AM CDT) [...] Narrative 11/10/2024 9:28 AM CDT TRANSESOPHAGEAL ECHOCARDIOGRAM CHENTE RUBIN : 1945 79 years Study Date: 11/10/2024 8:24:07 AM Gender: M BP: 150/82 mmHg Height: 183.00 cm BSA: 2.15 m Weight: 93.00 kg Tech: [facility] Referring MD: EKTA ENGEL Site: [facility] Reading Location: ANW OP Patient Location: Inpatient. [...] accurately identify the patient and procedure. The Juliett probe was passed without difficulty. PABLO, Limited [...] . This study was interpreted by an [facility] accredited facility. Final Procedure Note Ramiro Quinteros MD - 11/10/2024 TRANSESOPHAGEAL ECHOCARDIOGRAM CHENTE RUBIN : 1945 79 years Study Date: 11/10/2024 8:24:07 AM Gender: M BP: 150/82 mmHg Height: 183.00 cm BSA: 2.15 m Weight: 93.00 kg Tech: [facility] Referring MD: EKTA ENGEL Site: [facility] Reading Location: ANW OP Patient Location: Inpatient. [...] . This study was interpreted by an [facility] accredited facility. Final us Ekta Engel NP ECHO ORD Final Re sult * SCAN-CARDIAC STRIP (11/10/2024 7:37 AM CDT) us Scanner OTHER Final Result * SCAN-CARDIAC STRIP (11/09/2024 10:17 PM CDT) us Scanner OTHER Final Result * (ABNORMAL) GLUCOSE METER (11/09/2024 12:55 PM CDT) Only the most recent of25 resultswithin the time period is included. GLUCOSE METER 144(H) 65 - 100 mg/dL 11/09/2024 12:56 PM CDT [facility] Blood BLOOD SPECIMEN / Unknown 11/09/2024 12:55 PM CDT 11/09/2024 12:56 PM CDT Florencio Rhodes MD CHEMISTRY Final Result [facility] [address] [place] [address], [place] * XR CHEST 2 VIEWS PA [...] @ Nov 09 2024 1:06PM (Electronically Signed) [email or web address] Procedure Note Tai Vargas MD - 11/09/2024 [...] @ Nov 09 2024 1:06PM (Electronically Signed) [email or web address] us Ketty [facility] Final Res ult * SCAN-CARDIAC STRIP (11/09/2024 8:00 AM CDT) us Scanner OTHER Final Result * (ABNORMAL) CBC W PLT NO DIFF (11/09/2024 7:10 AM CDT) Only the most recent of6 resultswithin the time period is included. WHITE BLOOD COUNT 8.3 4.5 - 11.0 thou/cu mm 11/09/2024 7:42 AM CDT [facility] RED BLOOD COUNT 2.35(L) 4.30 - 5.90 mil/cu mm 11/09/2024 7:42 AM CDT [facility] HEMOGLOBIN 7.2(L) 13.5 - 17.5 g/dL 11/09/2024 7:42 AM CDT [facility] HEMATOCRIT 22.6(L) 37.0 - 53.0 % 11/09/2024 7:42 AM CDT [facility] MCV 96 80 - 100 fL 11/09/2024 7:42 AM CDT [facility] MCH 30.6 26.0 - 34.0 pg 11/09/2024 7:42 AM CDT [facility] MCHC 31.9(L) 32.0 - 36.0 g/dL 11/09/2024 7:42 AM CDT [facility] RDW 14.4 11.5 - 15.5 % 11/09/2024 7:42 AM CDT [facility] PLATELET COUNT 158 140 - 440 thou/cu mm 11/09/2024 7:42 AM CDT [facility] MPV 10.1 6.5 - 11.0 fL 11/09/2024 7:42 AM CDT [facility] NRBC 0.8 % 11/09/2024 7:42 AM CDT [facility] ABS NRBC 0.1 thou /cu mm 11/09/2024 7:42 AM CDT [facility] Blood BLOOD SPECIMEN / Unknown Venipuncture / Unknown 11/09/2024 7:10 AM CDT 11/09/2024 7:34 AM CDT us Yuliya Garcia NP HEMATOLOGY Final Result [facility] [address] [place] [address], * SCAN-CARDIAC STRIP (11/08/2024 9:59 PM CDT) [...] @ Nov 08 2024 12:02PM (Electronically Signed) [email or web address] Narrative 11/08/2024 12:02 PM CDT For Patients: As a result of the Century Cures Act, medical imaging exams and [...] @ Nov 08 2024 12:02PM (Electronically Signed) [email or web address] Yuliya Garcia NP GENERAL IMAGING Final Result * XR ABDOMEN 1 VIEW PORTABLE (11/08/2024 11:15 AM CDT) Anatomical Region Laterality Modality Abdomen Digital Radiogra phy 11/08/2024 11:5 9 AM CDT Impressions 11/08/2024 11:59 AM CDT Nonspecific nonobstructive bowel gas pattern. Dictated by Ousmane Bustillos MD @ Nov 08 2024 11:59AM (Electronically Signed) [email or web address] Narrative 11/08/2024 11:59 AM CDT For Patients: As a result of the s Act, medical imaging exams and procedure reports [...] @ Nov 08 2024 11:59AM (Electronically Signed) [email or web address] us Yuliya Garcia NP GENERAL IMAGING Final [...] INR 1.7(H) <1.3 11/07/2024 5:10 AM CDT [facility] PROTIME 19.6(H) 10.6 - 12.4 sec 11/07/2024 5:10 AM CDT [facility] Blood BLOOD SPECIMEN / Unknown Non-Lab Venipuncture / Unknown 11/07/2024 4:51 AM CDT 11/07/2024 4:58 AM CDT Narrative [facility] - 11/07/2024 5:10 AM CDT Therapeutic [...] us Florencio Rhodes MD HEMATOLOGY Final Result [facility] [address] [place] [address], [place] * SCAN-CARDIAC STRIP (11/06/2024 9:52 PM CDT) us Scanner OTHER Final Result * SCAN-CARDIAC STRIP (11/06/2024 8:17 PM CDT) us Scanner OTHER Final Result * (ABNORMAL) SPUTUM CULTURE, STAIN (11/06/2024 5:03 PM CDT) CULTURE RESULT(A) 11/08/2024 7:54 AM CDT [facility] CULTURE 1+ Gram negative bacilli 11/08/2024 7:54 AM CDT [facility] Comment:No Further Workup Pe nding CULTURE 3+ Usual Stacy 11/08/2024 7:54 AM CDT [facility] GRAM STAIN 1+ PMNs 11/08/2024 7:54 AM CDT [facility] GRAM STAIN 1+ Epithelial cells 11/08/2024 7:54 AM CDT [facility] GRAM STAIN No RBCs 11/08/2024 7:54 AM CDT [facility] GRAM STAIN 3+ Gram Positive Cocci 11/08/2024 7:54 AM CDT [facility] GRAM STAIN 2+ Gram Positive Bacilli 11/08/2024 7:54 AM CDT [facility] GRAM STAIN 2+ Gram Negative Bacilli 11/08/2024 7:54 AM CDT [facility] Sputum COUGHED SPUTUM SPECIMEN / Unknown Non-Blood / Unknown 11/06/2024 5:03 PM CDT 11/06/2024 5:36 PM CDT Neha SWENSON MICROBIOLOGY Final Re sult Performing Organization Address City/[facility] Co de Phone Number [facility] [address] [place] [address], [place] * LACTATE VENOUS (11/06/2024 12:40 PM CDT) Only the most recent of6 resultswithin the time period is included. LACTATE,VENOUS 1.9 0.5 - 2.0 mmol/L 11/06/2024 1:16 PM CDT [facility] Blood BLOOD SPECIMEN / Unknown Non-Lab Venipuncture / Unknown 11/06/2024 12:40 PM CDT 11/06/2024 12:47 PM CDT Neha SWENSON CHEMISTRY Final Re sult Performing Organization Address [facility] Co de Phone Number [facility] [address] [place] [address], [place] * ECHO TTE LIMITED WO CONTRAST W COLOR W LTD DOPPLER (11/06/2024 10:59 AM CDT) AORTIC VALVE MEAN PG 9 mmHg EJECTION FRACTION 62 % Anatomical Region Laterality Modality Ultrasound 11/06/2024 10:2 1 AM CDT Narrative 11/06/2024 11:55 AM CDT ECHOCARDIOGRAM CHENTE RUBIN : 1945 79 years Study Date: 11/06/2024 10:21:20 AM Gender: M BP: 136/73 mmHg Height: 182.88 cm BSA: 2.14 m Weight: 92.08 kg Tech: Referring MD: JAMES VILLEGAS Site: [facility] Reading Location: ANW IP Patient Location: Inpatient. Procedure: Limited 2D , [...] . This study was interpreted by an [facility] accredited facility. Final Procedure Note Paras Oro MD - 11/06/2024 ECHOCARDIOGRAM CHENTE RUBIN : 1945 79 years Study Date: 11/06/2024 10:21:20 AM Gender: M BP: 136/73 mmHg Height: 182.88 cm BSA: 2.14 m Weight: 92.08 kg Tech: Referring MD: JAMES VILLEGAS Site: [facility] Reading Location: ANW IP Patient Location: Inpatient. Procedure: Limited 2D , [...] . This study was interpreted by an [facility] accredited facility. Final us James Villegas MD ECHO ORD Final Result * (ABNORMAL) O2 SATURATION,MEASURED (11/06/2024 5:31 AM CDT) Only the most recent of5 resultswithin the time period is included. O2 SATURATION,FRANKLYN SURED 57 % 11/06/2024 5:49 AM CDT [facility] HEMOGLOBIN,BLO OD GAS 8.1(L) 13.5 - 17.5 g/dL 11/06/2024 5:49 AM CDT [facility] SOURCE, O2M Venous 11/06/2024 5:49 AM CDT [facility] Blood BLOOD SPECIMEN / Unknown Non-Lab Venipuncture / Unknown 11/06/2024 5:31 AM CDT 11/06/2024 5:44 AM CDT Narrative [facility] - 11/06/2024 5:49 AM CDT Reference Range for: Arterial Source (94-98) Non-Arterial Source (70-75) us Paras Arizmendi MD CHEMISTRY Final R esult [facility] [address] [place] [address], * SCAN-CARDIAC STRIP (11/06/2024 4:49 AM CDT) us Scanner OTHER Final Result * SCAN-CARDIAC STRIP (11/06/2024 4:49 AM CDT) us Scanner OTHER Final Result * (ABNORMAL) PROCALCITONIN (11/06/2024 4:18 AM CDT) Only the most recent of3 resultswithin the time period is included. PROCALCITONIN 0.82(H) ng/ml 11/06/2024 5:19 AM CDT [facility] Blood BLOOD SPECIMEN / Unknown Non-Lab Venipuncture / Unknown 11/06/2024 4:18 AM CDT 11/06/2024 4:41 AM CDT Narrative [facility] - 11/06/2024 5:19 AM CDT [...] Neha SWENSON SEND OUTS Final Re sult Performing Organization Address [facility] Co de Phone Number [facility] [address] [address], * [facility]UM IONIZED HOSPITAL DRAW ONLY (11/06/2024 4:18 AM CDT) Only the most recent of4 resultswithin the time period is included. Pathologist [facility] CALCIUM,IONIZE D 1.20 1.15 - 1.27 mmol/L 11/06/2024 4:49 AM CDT [facility] Blood BLOOD SPECIMEN / Unknown Non-Lab Venipuncture / Unknown 11/06/2024 4:18 AM CDT 11/06/2024 4:40 AM CDT Paras Arizmendi MD CHEMISTRY Final R esult Performing Organization Address [facility] Co de Phone Number [facility] [address] [place] [address], [place] * (ABNORMAL) HEPATIC FUNCTION PANEL (11/06/2024 4:18 AM CDT) Only the most recent of2 resultswithin the time period is included. ALBUMIN 3.4(L) 4.0 - 4.9 g/dL 11/06/2024 6:04 AM CDT [facility] PROTEIN,TOTAL 5.5(L) 6.0 - 8.0 g/dL 11/06/2024 6:04 AM CDT [facility] BILIRUBIN,TOTAL 0.9 0.0 - 1.2 mg/dL 11/06/2024 6:04 AM CDT [facility] BILIRUBIN,DIRECT 0.5(H) 0.0 - 0.2 mg/dL 11/06/2024 6:04 AM CDT [facility] BILIRUBIN,INDIRE CT 0.4 0.2 - 0.8 mg/dL 11/06/2024 6:04 AM CDT [facility] ALK PHOSPHATASE 51 40 - 129 IU/L 11/06/2024 6:04 AM CDT [facility] ALT (SGPT) 103(H) 10 - 50 IU/L 11/06/2024 6:04 AM CDT [facility] AST (SGOT) 119(H) 10 - 50 IU/L 11/06/2024 6:04 AM CDT [facility] Blood BLOOD SPECIMEN / Unknown Non-Lab Venipuncture / Unknown 11/06/2024 4:18 AM CDT 11/06/2024 4:41 AM CDT Neha SWENSON CHEMISTRY Final Re sult Performing Organization Address City/[facility]/ZIP Co de Phone Number [facility] [address] [address], * BLOOD CULTURE (11/05/2024 9:15 PM CDT) Only the most recent of2 resultswithin the time period is included. CULTURE No Growth. 11/10/2024 10:04 PM CDT [facility] Blood BLOOD SPECIMEN / Unknown Venipuncture / Unknown 11/05/2024 9:15 PM CDT 11/05/2024 9:23 PM CDT Neha SWENSON MICROBIOLOGY Final Re sult [facility] [address] [place] [address], [place] * (ABNORMAL) MRSA/SA PCR (11/05/2024 4:53 PM CDT) Pathologist [facility] MRSA DNA PCR Negative Negative 11/05/2024 7:02 PM CDT [facility] STAPHYLOCOCCUS AUREUS PCR Positive(A) Negative 11/05/2024 7:02 PM CDT [facility] Other SPECIMEN FROM INTERNAL NOSE / Unknown Non-Blood / Unknown 11/05/2024 4:53 PM CDT 11/05/2024 5:01 PM CDT Narrative [facility] - 11/05/2024 7:02 PM CDT S. aureus detected; NOT MRSA. Test result does not preclude MRSA nasal colonization. False negative for MRSA could be obtained if MRSA present in the sample is below threshold of detection. Neha SWENSON MICROBIOLOGY Final Re sult [facility] [address] [place] [address], [place] * (ABNORMAL) URINALYSIS MICROSCOPIC (11/05/2024 4:53 PM CDT) Pathologist [facility] RBC >100(A) 0-2, None Seen /HPF 11/05/2024 5:19 PM CDT [facility] WBC 11-25(A) 0-2, 3-5, None Seen /HPF 11/05/2024 5:19 PM CDT [facility] BACTERIA Few None Seen, Rare, Few Bacteria/ HPF 11/05/2024 5:19 PM CDT [facility] EPITHELIAL CELLS None Seen None Seen, Few Epi/HPF 11/05/2024 5:19 PM CDT [facility] HYALINE CASTS 3-5 0-2, 3-5 /LPF 11/05/2024 5:19 PM CDT [facility] Urine URINE SPECIMEN / Unknown Non-Blood / Unknown 11/05/2024 4:53 PM CDT 11/05/2024 5:02 PM CDT Neha SWENSON URINE Final Re sult [facility] [address] [address], [place] * URINE CULTURE (11/05/2024 4:53 PM CDT) CULTURE No growth (<1,000 CFU/mL) 11/07/2024 10:07 AM CDT [facility] Urine URINE SPECIMEN / Unknown Non-Blood / Unknown 11/05/2024 4:53 PM CDT 11/05/2024 5:02 PM CDT eNha SWENSON MICROBIOLOGY Final Re sult Performing Organization Address [facility] Co de Phone Number [facility] [address] [address], [place] * (ABNORMAL) UA W/ SEDIMENT EXAM REFLEXED PER CRITERIA (11/05/2024 4:53 PM CDT) COLOR [place](A) Yellow Color 11/05/2024 5:19 PM CDT [facility] CLARITY Cloudy(A) Clear Clarity 11/05/2024 5:19 PM CDT [facility] SPECIFIC GRAVITY,URINE >=1.030(A) 1.010, 1.015, 1.020, 1.025 11/05/2024 5:19 PM CDT [facility] PH,URINE 5.0(A) 6.0, 7.0, 8.0, 5.5, 6.5, 7.5, 8.5 11/05/2024 5:19 PM CDT [facility] UROBILINOGEN,QU ALITATIVE Normal Normal EU/dl 11/05/2024 5:19 PM CDT [facility] PROTEIN, URINE 100(A) Negative mg/dL 11/05/2024 5:19 PM CDT [facility] GLUCOSE, URINE Negative Negative mg/dL 11/05/2024 5:19 PM CDT [facility] KETONES,URINE Trace(A) Negative mg/dL 11/05/2024 5:19 PM CDT [facility] BILIRUBIN,URINE Abnormal(A) Negative 11/06/19 5:19 PM CDT [facility] Comment:A variety of metabol ites and/or medications may result in a positive bilirubin result. Clinical correlation is recommended. OCCULT BLOOD,URINE Large(A) Negative 11/05/2024 5:19 PM CDT [facility] NITRITE Negative Negative 11/05/2024 5:19 PM CDT [facility] LEUKOCYTE ESTERASE Small(A) Negative 11/05/2024 5:19 PM CDT [facility] Urine URINE SPECIMEN / Unknown Non-Blood / Unknown 11/05/2024 4:53 PM CDT 11/05/2024 5:02 PM CDT Neha SWENSON URINE Final Re sult Performing Organization Address City/[facility]/ZIP Co de Phone Number [facility] [address] [place] [address], * (ABNORMAL) LACTATE ARTERIAL (11/05/2024 2:33 PM CDT) Only the most recent of7 resultswithin the time period is included. LACTATE,ARTERI AL 2.6(H) 0.5 - 1.6 mmol/L 11/05/2024 3:11 PM CDT [facility] Blood BLOOD SPECIMEN / Unknown Non-Lab Venipuncture / Unknown 11/05/2024 2:33 PM CDT 11/05/2024 2:42 PM CDT Neha SWENSON CHEMISTRY Final Re sult Performing Organization Address City/[facility]/ZIP Co de Phone Number [facility] [address] [place] [address], [place] * (ABNORMAL) Thrombin Time - Immediate Postop (11/04/2024 1:04 PM CDT) THROMBIN TIME 16(H) <16 sec 11/04/2024 1:39 PM CDT [facility] Blood BLOOD SPECIMEN / Unknown Non-Lab Venipuncture / Unknown 11/04/2024 1:04 PM CDT 11/04/2024 1:16 PM CDT us Florencio Rhodes MD HEMATOLOGY Final Result Performing Organization Address [facility]/ZIP Co de Phone Number [facility] [address] [address], [place] * APTT - Immediate Postop (11/04/2024 1:04 PM CDT) APTT 33 25 - 36 sec 11/04/2024 1:39 PM CDT [facility] Blood BLOOD SPECIMEN / Unknown Non-Lab Venipuncture / Unknown 11/04/2024 1:04 PM CDT 11/04/2024 1:16 PM CDT Narrative [facility] - 11/04/2024 1:39 PM CDT Therapeutic Range: 59-89 seconds us Florencio Rhodes MD HEMATOLOGY Final Result Performing Organization Address City/[facility] Co de Phone Number [facility] [address] [address], [place] * Fibrinogen, Quantitative - Immediate Postop (11/04/2024 1:04 PM CDT) Only the most recent of2 resultswithin the time period is included. FIBRINOGEN,IRISH NTITATIVE 310 193 - 401 mg/dL 11/04/2024 1:39 PM CDT [facility] Blood BLOOD SPECIMEN / Unknown Non-Lab Venipuncture / Unknown 11/04/2024 1:04 PM CDT 11/04/2024 1:16 PM CDT us Florencio Rhodes MD HEMATOLOGY Final Result [facility] [address] [place] [address], * (ABNORMAL) Cardiac Thromboelastography (11/04/2024 10:54 AM CDT) PATTI REASON Cardiac Weaning Pre-Protamin e Panel 11/04/2024 12:20 PM CDT [facility] INTEM CT >365(H) 139 - 205 s 11/04/2024 12:20 PM CDT [facility] EXTEM CT 115(H) 51 - 73 s 11/04/2024 12:20 PM CDT [facility] EXTEM A5 45 33 - 52 mm 11/04/2024 12:20 PM CDT [facility] EXTEM A10 56 45 - 62 mm 11/04/2024 12:20 PM CDT [facility] EXTEM A20 63 54 - 69 mm 11/04/2024 12:20 PM CDT [facility] EXTEM MCF 65 57 - 72 mm 11/04/2024 12:20 PM CDT [facility] EXTEM ML 2 0 - 6 % 11/04/2024 12:20 PM CDT [facility] EXTEM LI60 98 94 - 100 % 11/04/2024 12:20 PM CDT [facility] FIBTEM A5 16 5 - 16 mm 11/04/2024 12:20 PM CDT [facility] [facility] FIBTEM A10 18(H) 6 - 17 mm 11/04/2024 12:20 PM CDT [facility] FIBTEM A20 20(H) 6 - 18 mm 11/04/2024 12:20 PM CDT [facility] FIBTEM MCF 22(H) 6 - 19 mm 11/04/2024 12:20 PM CDT [facility] [place] [facility] 247(H) 141 - 215 s 11/04/2024 12:20 PM CDT [facility] [place] A5 38 33 - 51 mm 11/04/2024 12:20 PM CDT [facility] [place] A10 49 44 - 61 mm 11/04/2024 12:20 PM CDT [facility] [place] A20 57 52 - 67 mm 11/04/2024 12:20 PM CDT [facility] HE[place] MCF 59 54 - 69 mm 11/04/2024 12:20 PM CDT [facility] Blood BLOOD SPECIMEN / Unknown Non-Lab Venipuncture / Unknown 11/04/2024 10:54 AM CDT 11/04/2024 11:02 AM CDT us Enrique Griffin MD HEMATOLOGY Final R esult [facility] [address] [address], * ECHO PABLO INTRAOPERATIVE (11/04/2024 10:45 AM CDT) AORTIC VALVE MEAN PG 14 mmHg EJECTION FRACTION 55 - 60% Anatomical Region Laterality Modality Computed Radiogr aphy 11/04/2024 7:43 AM CDT Narrative 11/05/2024 10:45 AM CDT TRANSESOPHAGEAL ECHOCARDIOGRAM CHENTE RUBIN : 1945 79 years Study Date: 11/04/2024 7:43:35 AM Gender: M BP: 105/69 mmHg Height: 182.90 cm BSA: 2.15 m Weight: 92.30 kg Tech: Referring MD: JARON CRUZ Site: [facility] Reading Location: [facility] Patient Location: Inpatient. Procedure: PABLO and [...] Enrique Griffin MD - 11/05/2024 TRANSESOPHAGEAL ECHOCARDIOGRAM CHENTE RUBIN : 1945 79 years Study Date: 11/04/2024 7:43:35 AM Gender: M BP: 105/69 mmHg Height: 182.90 cm BSA: 2.15 m Weight: 92.30 kg Tech: Referring MD: JARON CRUZ Site: [facility] Reading Location: [facility] Patient Location: Inpatient. Procedure: PABLO and [...] 1.6 l/min/m Mitral Valve: . Final (Updated) us Jaron SWENSON ECHO ORD Edited Re sult - Final * PATH TISSUE EXAM (11/04/2024 9:39 AM CDT) Case Report Pathology Report Case: [id number] Authorizing Provider: Florencio Rhodes MD Collected: 11/04/2024 0939 Ordering Location: [facility] Received: 11/04/2024 [address] [facility] Pathologist: Yuliya Summers DO Specimens: A) - Aorta, ASCENDING AORTA B) - Aortic Valve Leaflets, AORTIC VALVE LEAFLETS 11/08/2024 10:57 AM CDT [facility] Final Diagnosis A) AORTA, ASCENDING PORTION EXCISED PART OF ANEURYSM REPAIR: 1. Aorta with atherosclerosis and patchy medial degeneration, consistent with aneurysmal change 2. Negative for aortitis 3. Clinical diagnosis of ascending aortic aneurysm B) AORTIC VALVE, LEAFLETS, RESECTION: 1. Fibrocalcific changes of trileaflet aortic valve (gross examination only) 2. Clinical history of aortic stenosis 11/08/2024 10:57 AM CDT [facility] at 1057 CDT Clinical Information Mr. Rubin is a 79 y.o. with a history of ascending aortic aneurysm and aortic stenosis. 11/08/2024 10:57 AM CDT [facility] Gross Description A) Received in formalin, labeled with the patient's name and ascending aorta, is a 6 cm long, 4 cm greatest diameter focally disrupted aortic segment with fatty, hemorrhagic adventitial adhesions. The intima is faintly mottled yellow-dailey, smooth and intact. No lesion is identified. The wall is 0.1-0.2 cm thick. Hospitality Coordinator sections are submitted in 2 cassettes. B) [...] uploaded. DPL 11/04/2024 11/08/2024 10:57 AM CDT [facility] Microscopic Description The final diagnosis is based on microscopic examination of appropriate sections of part A. Part B is gross examination only. 11/08/2024 10:57 AM CDT [facility] Additional Information Interpreted at [facility] - [address], [place] [address] 11/08/2024 10:57 AM CDT [facility] Tissue CARDIOVASCULAR SPECIMEN / Unknown 11/04/2024 9:39 AM CDT 11/04/2024 10:01 AM CDT Tissue specimen (specimen) (Aortic Valve Leaflets) 11/04/2024 9:44 AM CDT 11/04/2024 10:01 AM CDT us Florencio Rhodes MD PATHOLOGY/CYTOLOGY Final Result [facility] [address] [place] [address], [place] * CVC TRIPLE LUMEN, H[facility] INTRDCR NON GUIDING NON LASER PR40, H[facility] STOPCOCK PR5, [facility] ANES US GUIDE FOR VASC ACCESS, [facility] CATH INFUSION PR30, [facility] KIT MONITORING PR5, HCHG TUBING PR5, HCHG DRSG PR5, HCHG DRSG PR1, AHC AN INTRODUCER 1 LUMEN PERFORMABLE, HCHG KIT PR5 (11/04/2024 8:46 AM CDT) Narrative Enrique Griffin [...] lumen Introducer present: yes Introducer type: TLIC Enrique Griffin MD ANESTHESIA PX NOTE ORDE RABLES Final Result * PABLO (11/04/2024 8:46 AM CDT) Enrique Gregorio MD [...] Enrique Griffin MD ANESTHESIA PX NOTE ORDE DORON Final Result * HCHG TUBE PR10, HCHG [...] Measured From: lips Difficulty: 0 (not difficult) Judy Eden MANAGER TALENT MANAGEMENT ANESTHESIA PX NOTE ORDERABL ES Final Result * HCHG CATH PR5, [facility] ANES US GUIDE FOR VASC ACCESS, [facility] ANES ARTERIAL CATH FOR SAMPLE MONITOR TRANS, H[facility]G TUBING PR1, HCHG TUBING PR20, HCHG DRSG PR1, HCHG DRSG PR5, HCHG KIT PR5 (11/04/2024 7:33 AM CDT) Enrique Gregorio MD - 11/04/2024 7:33 AM CDT Enrique [...] Securement/dressing: Biopatch applied, dressing applied. Comment: Vessel Floor Associate Additional supplies used to locate vessel: no Needle Catheter size: 20 G. Comment:. Catheter length: 4.5 cm. Comment: Events: no complications. Enrique Griffin MD ANESTHESIA PX NOTE ORDE RABLES Final Result * Type and Screen (11/04/2024 6:55 AM CDT) Only the most recent of2 resultswithin the time period is included. ABORH A Rh Positive 11/04/2024 8:08 AM CDT [facility] ANTIBODY SCREEN Negative Negative 11/04/2024 8:08 AM CDT [facility] SPECIMEN EXPIRATION DATE/TIME 11/07/24 23:59 11/04/2024 8:08 AM CDT [facility] Blood BLOOD SPECIMEN / Unknown Non-Lab Venipuncture / Unknown 11/04/2024 6:55 AM CDT 11/04/2024 7:21 AM CDT us Jaron SWENSON BLOOD BANK Final Res ult [facility] LAB-[facility] BLOOD BANK [address] [place] [address], * SCAN-CARDIAC STRIP (11/04/2024 12:00 AM CDT) Narrative 11/04/2024 12:00 AM CDT Ordered by an unspecified provider. us Other Clinical Staff OTHER Final Resul t * SCAN-OPERATIVE/PROCEDURE REPORT (11/04/2024 12:00 AM CDT) Narrative 11/04/2024 12:00 AM CDT Ordered by an unspecified provider. Other Clinical Staff OTHER Final Resul t * [place] NJX DX/THER SBST INTRLMNR LMBR/SAC W/IMG GDN (10/26/2024 12:00 AM CDT) us Donny Kirkpatrick MD PB - NERVOUS SYSTEM SERVIC ES Final Result * SCAN-OPERATIVE/PROCEDURE REPORT (10/22/2024 12:00 AM CDT) Scanner OTHER Final Result * (ABNORMAL) COVID/FLU/RSV PANEL (10/19/2024 9:17 AM CDT) COVID 19 [facility] Negative Negative 10/19/2024 4:01 PM CDT [facility] Comment:All PCR tests are rodriguez bject to false negative result due to variability in viral load and collection technique. A negative result does not rule out a SARS-CoV-2 infection. Clinical correlation required. INFLUENZA A PCR Negative 5 4:01 PM CDT [facility] INFLUENZA B PCR Negative 4:01 PM CDT [facility]- NTRAL LABORATORY Respiratory Syncytial Virus Positive(A) 10/19/2024 4:01 PM CDT [facility] Swab NASOPHARYNGEAL SWAB / Unknown Non-Blood / Unknown 10/19/2024 9:17 AM CDT 10/19/2024 9:18 AM CDT us Kathy SWENSON MICROBIOLOGY Final Result [facility] [address] [place] [address], [place] * SCAN-RADIOLOGY REPORT (10/13/2024 12:00 AM CDT) Anatomical Region Laterality Modality Other us Scanner OTHER Final Result * ANTI HCV [18225.2] (05/02/2015 7:09 AM CDT) HEPATITIS C ANTIBODY Non-Reacti ve Non-Reacti ve 05/02/2015 2:42 PM CDT [facility] Blood specimen (specimen) BLOOD SPECIMEN / Unknown Venipuncture / Unknown 05/02/2015 7:09 AM CDT 05/02/2015 7:09 AM CDT Narrative [facility] - 05/02/2015 2:42 PM CDT Antibodies to HCV not detected; does not exclude the possibility of exposure to HCV. us Maikol Cortes MD SEND OUTS Final Result [facility] 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
[2024-12-25] MEDS: 0.9 % SODIUM CHLORIDE 1000 ml 1,000 ML IV (12:45)
[2024-12-25 13:02] LABS: Basophils Absolute Auto 0.03 K/uL (0.00-0.30); Basophils Percent Auto 0.5 % (0.0-3.0); Eosinophils Absolute Auto 0.15 K/uL (0.00-0.50); Eosinophils Percent Auto 2.5 % (0.0-7.0); Hematocrit 40.3 % (37.0-53.0); Hemoglobin* 12.5 gm/dL (13.5-17.5); Immature Granulocytes Abs Auto 0.01 K/uL (0.00-0.30); Immature Granulocytes Pct Auto 0.2 %; Lymphocytes Percent Auto 19.9 % (20-44); Mean Corpuscular HGB Conc 31 gm/dL (32-36); Mean Corpuscular Hemoglobin 28 pg (26-34); Mean Corpuscular Volume 89 fL (80-100); Neutrophils Absolute Auto 3.85 K/uL (1.7-7.0); Neutrophils Percent Auto 63.9 % (42.0-72.0); Platelet Count* 261 K/uL (140-440); RDW Coefficient of Variation % 15.4 % (11.5-15.5); Red Blood Count 4.53 m/uL (4.30-5.90); White Blood Count* 6.02 K/uL (4.50-11.00)
--- NOTE | 2024-12-25 13:04 | ED.ARRPALP ---
HPI - Arrhythmia/Palpitations General Date Seen: 12/25/24 <Adrien Jimenez DO - Last Filed: 12/25/24 14:24> Chief Complaint: Arrhythmia/Palpitations <Adrien Jimenez DO - Last Filed: 12/25/24 14:24> Stated Complaint: RAPID HEART RATE <Adrien Jimenez DO - Last Filed: 12/25/24 14:24> Time Seen by Provider: 12/25/24 12:15 <Adrien Jimenez DO - Last Filed: 12/25/24 14:24> Source: patient <Adrien Jimenez DO - Last Filed: 12/25/24 14:24> Mode of arrival: ambulatory <Adrien Jimenez DO - Last Filed: 12/25/24 14:24> Limitations: no limitations <Adrien Jimenez DO - Last Filed: 12/25/24 14:24> History of Present Illness HPI narrative: Patient is a 79-year-old male presenting to the emergency department for concerns of AFib. He has a history of AFib/a flutter and is scheduled to have an ablation this upcoming Friday. States yesterday his smart watch said his heart rate was in the 130s. It continued to be fast throughout the night and into this morning. Considering his heart rate was not improving he decided to come into the emergency department. He is already on Eliquis. Was recently cardioverted here on 12/21/2024. At that time he was found to be in a flutter. He states he feels mildly lightheaded but denies chest pain, shortness of breath, abdominal pain, diarrhea, constipation, headache, weakness, fevers, chills. No other concerns noted at this time. He was also cardioverted 1 and half weeks ago at [facility]. <Adrien Jimenez - Last Filed: 12/25/24 14:24> Related Data Home Medications: Home Medications ?Medication ?Instructions ?Recorded ?Confirmed amlodipine 5 mg tablet 5 mg PO DAILY 07/10/22 12/25/24 eszopiclone 1 mg tablet 1 mg PO HS 07/10/22 12/25/24 evolocumab 140 mg/mL subcutaneous 140 mg subcut Q14D 07/10/22 12/25/24 pen injector (Repnaomydiogo Rodriguez) aspirin 81 mg capsule 81 mg PO DAILY 10/12/22 12/25/24 Held on 12/25/24. Instructions: ablation celecoxib 100 mg capsule 100 mg PO BID PRN 07/17/23 12/25/24 Held on 12/25/24. Instructions: ablation Friday omeprazole 40 mg capsule,delayed 40 mg PO DAILY 07/21/23 12/25/24 release betamethasone, augmented 0.05 % 1 applic topical PRN 07/27/24 11/01/24 topical ointment clobetasol 0.05 % topical cream 1 applic topical 07/27/24 11/01/24 peg 400-propylene glycol 0.4 %-0.3 1 drp ophthalmic (eye) BID 10/07/24 12/25/24 % eye gel drops xyosted INJECTION 10/21/24 11/01/24 apixaban 5 mg tablet (Eliquis) 5 mg PO BID 12/21/24 12/25/24 amiodarone 200 mg tablet 200 mg PO BID 12/25/24 12/25/24 Previous Rx's ?Medication ?Instructions ?Recorded cyclobenzaprine 10 mg tablet 10 mg PO QHS #20 tabs 10/07/24 <Adrien Jimenez DO - Last Filed: 12/25/24 14:24> Allergies/Adverse Reactions: Allergies Allergy/AdvReac Type Severity Reaction Status Date / Time latex Allergy Unknown Verified 12/25/24 12:23 atorvastatin Allergy Verified 12/25/24 12:23 lisinopril Allergy Verified 12/25/24 12:23 naproxen Allergy Nausea Verified 12/25/24 12:23 rosuvastatin Allergy Verified 12/25/24 12:23 <Adrien Jimenez DO - Last Filed: 12/25/24 14:24> Review of Systems Status of ROS: Reports: 10 or more systems reviewed and unremarkable except as noted in History and below <Adrien Jimenez DO - Last Filed: 12/25/24 14:24> [facility] Medical History: Medical History Health care directive on file ?Z78.9 - Other specified health status (ICD-10) Sarcoidosis ?D86.9 - Sarcoidosis, unspecified (ICD-10) Atrial fibrillation ?I48.91 - Unspecified atrial fibrillation (ICD-10) Chronic systolic CHF (congestive heart failure) ?I50.22 - Chronic systolic (congestive) heart failure (ICD-10) Prostate cancer ?C61 - Malignant neoplasm of prostate (ICD-10) Hypertension ?I10 - Essential (primary) hypertension (ICD-10) Pain of foot ?M79.673 - Pain in unspecified foot (ICD-10) Malaise ?R53.81 - Other malaise (ICD-10) Laceration of left side of forehead with complication ?S01.81XA - Laceration without foreign body of other part of head, initial encounter (ICD-10) Facial injury ?S09.93XA - Unspecified injury of face, initial encounter (ICD-10) 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) Chronic headache ?R51.9 - Headache, unspecified (ICD-10) ?G89.29 - Other chronic pain (ICD-10) Chronic daily headache ?R51.9 - Headache, unspecified (ICD-10) Atrial flutter with rapid ventricular response ?I48.92 - Unspecified atrial flutter (ICD-10) Atrial fibrillation with rapid ventricular response ?I48.91 - Unspecified atrial fibrillation (ICD-10) Methicillin resistant Staphylococcus aureus culture positive (03/31/19) ?Z22.322 - Carrier or suspected carrier of Methicillin resistant Staphylococcus aureus (ICD-10) Diverticulitis ?K57.92 - Diverticulitis of intestine, part unspecified, without perforation or abscess without bleeding (ICD-10) <Adrien Jimenez DO - Last Filed: 12/25/24 14:24> Surgical History: Surgical History Status post tendon repair (07/21/23) ?Z98.890 - Other specified postprocedural states (ICD-10) H/O prostatectomy (10/2014) ?Z90.79 - Acquired absence of other genital organ(s) (ICD-10) History of elbow surgery (01/19/04) ?Z98.890 - Other specified postprocedural states (ICD-10) Status post arthroscopy of left shoulder (03/02/03) ?Z98.890 - Other specified postprocedural states (ICD-10) S/P ankle joint replacement ?Z96.669 - Presence of unspecified artificial ankle joint (ICD-10) H/O elbow surgery (~09/2017) ?Z98.890 - Other specified postprocedural states (ICD-10) <Adrien Jimenez DO - Last Filed: 12/25/24 14:24> Social History: Social History Narrative: -Kristen What is your current living situation?: I presently have a place to live In the past 12 months, utilities in danger of being shut off: no In past 12 months, lack of transportation kept you from medical appts, meetings, work, or getting things needed for daily living: no In the past 12 mos, have been you worried that your food would run out before you had money to buy more?: never true In the past 12 mos, the food you bought just didn't last and you didn't have money to buy more?: never true Smoking Status: Never smoker Do you use any of these nicotine containing products: None Second hand tobacco smoke exposure: No How often do you have a drink containing alcohol: never AUDIT-C Alcohol total score: 0 Non-prescribed substance use: denies use Caffeine: Yes How often does anyone, including family, friends and others, physically hurt you: never How often does anyone, including family, friends and others, insult or talk down to you: never How often does anyone, including family, friends and others, threaten you with harm: never How often does anyone, including family, friends and others, scream or curse at you: never service: No <Adrien Jimenez DO - Last Filed: 12/25/24 14:24> Exam Narrative: Exam Narrative: Const: Well-nourished, Well-developed, in no distress Eyes: PERRL, no conjunctival injection, and symmetrical lids HENT: Atraumatic external nose and ears. Moist mucous membranes. Neck: Symmetric, trachea midline, No thyromegaly. CVS: Tachycardic but regular, No murmurs or gallops. Peripheral pulses 2+ and equal in all extremities RESP: Unlabored respiratory effort. Clear to auscultation bilaterally. GI: Nontender/Nondistended, No rebound or guarding. MSK:Extremities w/o deformity, Normal Active ROM Skin: Warm, Dry. No rashes or lesions. Neuro: Normal Muscle tone, No focal neurological deficits. Psych: Awake, Alert, & Oriented x3. Appropriate mood and affect. <Adrien Jimenez, DO - Last Filed: 12/25/24 14:24> Const: Vital Signs, click to edit/add: Vital Signs - 24 hr 12/25/24 12:14 12/25/24 12:27 12/25/24 12:28 Temperature 97.5 F L Pulse Rate 134 H 137 H Pulse Rate [Pulse Oximeter] 136 H Respiratory Rate 18 15 Blood Pressure 127/94 H Blood Pressure [Ri ght Upper Arm] 122/81 Pulse Oximetry 97 96 Oxygen Delivery Me thod Room Air 12/25/24 12:30 12/25/24 12:31 12/25/24 12:45 Temperature Pulse Rate 131 H 136 H 135 H Pulse Rate [Pulse Oximeter] Respiratory Rate 10 L 21 Blood Pressure 125/99 H Blood Pressure [Ri ght Upper Arm] Pulse Oximetry 97 97 97 Oxygen Delivery Me thod 12/25/24 13:00 12/25/24 13:01 12/25/24 13:15 Temperature Pulse Rate 128 H 132 H 132 H Pulse Rate [Pulse Oximeter] Respiratory Rate 15 14 Blood Pressure 126/91 H Blood Pressure [Ri ght Upper Arm] Pulse Oximetry 96 96 94 Oxygen Delivery Me thod 12/25/24 13:30 12/25/24 13:31 12/25/24 13:44 Temperature Pulse Rate 131 H 132 H 133 H Pulse Rate [Pulse Oximeter] Respiratory Rate 20 Blood Pressure 105/87 125/92 H Blood Pressure [Ri ght Upper Arm] Pulse Oximetry 95 96 98 Oxygen Delivery Me thod 12/25/24 13:45 12/25/24 13:46 12/25/24 13:51 Temperature Pulse Rate 130 H 131 H 81 Pulse Rate [Pulse Oximeter] Respiratory Rate 19 Blood Pressure 129/96 H 137/87 Blood Pressure [Ri ght Upper Arm] Pulse Oximetry 97 99 100 Oxygen Delivery Me thod 12/25/24 13:56 12/25/24 14:00 12/25/24 14:01 Temperature Pulse Rate 80 80 82 Pulse Rate [Pulse Oximeter] Respiratory Rate 20 Blood Pressure 126/85 127/85 Blood Pressure [Ri ght Upper Arm] Pulse Oximetry 98 99 99 Oxygen Delivery Me thod 12/25/24 14:15 12/25/24 14:16 12/25/24 14:30 Temperature Pulse Rate 85 83 84 Pulse Rate [Pulse Oximeter] Respiratory Rate 21 13 19 Blood Pressure 134/89 Blood Pressure [Ri ght Upper Arm] Pulse Oximetry 98 98 90 Oxygen Delivery Me thod 12/25/24 14:31 Temperature Pulse Rate 84 Pulse Rate [Pulse Oximeter] Respiratory Rate 27 H Blood Pressure 126/84 Blood Pressure [Ri ght Upper Arm] Pulse Oximetry 99 Oxygen Delivery Me thod <Adrien Jimenez, DO - Last Filed: 12/25/24 14:24> Vital Signs, click to edit/add: Vital Signs - 24 hr 12/25/24 12:14 12/25/24 12:27 12/25/24 12:28 Temperature 97.5 F L Pulse Rate 134 H 137 H Pulse Rate [Pulse Oximeter] 136 H Respiratory Rate 18 15 Blood Pressure 127/94 H Blood Pressure [Ri ght Upper Arm] 122/81 Pulse Oximetry 97 96 Oxygen Delivery Me thod Room Air 12/25/24 12:30 12/25/24 12:31 12/25/24 12:45 Temperature Pulse Rate 131 H 136 H 135 H Pulse Rate [Pulse Oximeter] Respiratory Rate 10 L 21 Blood Pressure 125/99 H Blood Pressure [Ri ght Upper Arm] Pulse Oximetry 97 97 97 Oxygen Delivery Me thod 12/25/24 13:00 12/25/24 13:01 12/25/24 13:15 Temperature Pulse Rate 128 H 132 H 132 H Pulse Rate [Pulse Oximeter] Respiratory Rate 15 14 Blood Pressure 126/91 H Blood Pressure [Ri ght Upper Arm] Pulse Oximetry 96 96 94 Oxygen Delivery Me thod 12/25/24 13:30 12/25/24 13:31 12/25/24 13:44 Temperature Pulse Rate 131 H 132 H 133 H Pulse Rate [Pulse Oximeter] Respiratory Rate 20 Blood Pressure 105/87 125/92 H Blood Pressure [Ri ght Upper Arm] Pulse Oximetry 95 96 98 Oxygen Delivery Me thod 12/25/24 13:45 12/25/24 13:46 12/25/24 13:51 Temperature Pulse Rate 130 H 131 H 81 Pulse Rate [Pulse Oximeter] Respiratory Rate 19 Blood Pressure 129/96 H 137/87 Blood Pressure [Ri ght Upper Arm] Pulse Oximetry 97 99 100 Oxygen Delivery Me thod 12/25/24 13:56 12/25/24 14:00 12/25/24 14:01 Temperature Pulse Rate 80 80 82 Pulse Rate [Pulse Oximeter] Respiratory Rate 20 Blood Pressure 126/85 127/85 Blood Pressure [Ri ght Upper Arm] Pulse Oximetry 98 99 99 Oxygen Delivery Me thod 12/25/24 14:15 12/25/24 14:16 12/25/24 14:30 Temperature Pulse Rate 85 83 84 Pulse Rate [Pulse Oximeter] Respiratory Rate 21 13 19 Blood Pressure 134/89 Blood Pressure [Ri ght Upper Arm] Pulse Oximetry 98 98 90 Oxygen Delivery Me thod 12/25/24 14:31 Temperature Pulse Rate 84 Pulse Rate [Pulse Oximeter] Respiratory Rate 27 H Blood Pressure 126/84 Blood Pressure [Ri ght Upper Arm] Pulse Oximetry 99 Oxygen Delivery Me thod <Kimberly Carrasquillo MD - Last Filed: 12/25/24 15:33> Course Reevaluation(s) Additional Reevaluation(s): Sedation note: I provided procedural sedation for cardioversion for atrial flutter. Patient has had this multiple times before, has tolerated etomidate 10 mg well. 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 Risks and benefits were discussed and consent provided. Airway clear, lungs clear. He was given 10 mg of etomidate IV with adequate sedation, cardioverted without complication. Awakened without difficulty. <Kimberly Carrasquillo MD - Last Filed: 12/25/24 15:33> Vital Signs Vital signs: Initial Vital Signs Temperature 97.5 F L 12/25/24 12:14 Temperature Source Temporal Artery Scan 12/25/24 12:14 Pulse Rate 136 H 12/25/24 12:14 Respiratory Rate 18 12/25/24 12:14 Blood Pressure 122/81 12/25/24 12:14 Blood Pressure Mean 94 12/25/24 12:14 Blood Pressure Position Sitting 12/25/24 12:14 Oxygen Delivery Method Room Air 12/25/24 12:14 Vital Signs Temperature 97.5 F L 12/25/24 12:14 Pulse Rate 136 H 12/25/24 12:14 Respiratory Rate 18 12/25/24 12:14 Blood Pressure 122/81 12/25/24 12:14 Oxygen Delivery Method Room Air 12/25/24 12:14 Temperature 97.5 F L 12/25/24 12:14 Pulse Rate 84 12/25/24 14:31 Respiratory Rate 27 H 12/25/24 14:31 Blood Pressure 126/84 12/25/24 14:31 Pulse Oximetry 99 12/25/24 14:31 Oxygen Delivery Method Room Air 12/25/24 12:14 <Adrien Jimenez DO - Last Filed: 12/25/24 14:24> Initial Vital Signs Temperature 97.5 F L 12/25/24 12:14 Temperature Source Temporal Artery Scan 12/25/24 12:14 Pulse Rate 136 H 12/25/24 12:14 Respiratory Rate 18 12/25/24 12:14 Blood Pressure 122/81 12/25/24 12:14 Blood Pressure Mean 94 12/25/24 12:14 Blood Pressure Position Sitting 12/25/24 12:14 Oxygen Delivery Method Room Air 12/25/24 12:14 Vital Signs Temperature 97.5 F L 12/25/24 12:14 Pulse Rate 136 H 12/25/24 12:14 Respiratory Rate 18 12/25/24 12:14 Blood Pressure 122/81 12/25/24 12:14 Oxygen Delivery Method Room Air 12/25/24 12:14 Temperature 97.5 F L 12/25/24 12:14 Pulse Rate 84 12/25/24 14:31 Respiratory Rate 27 H 12/25/24 14:31 Blood Pressure 126/84 12/25/24 14:31 Pulse Oximetry 99 12/25/24 14:31 Oxygen Delivery Method Room Air 12/25/24 12:14 <Kimberly Carrasquillo MD - Last Filed: 12/25/24 15:33> Medications Administered Medications: Discontinued Medications Generic Name Dose Route Start Last Admin Trade Name Freq PRN Reason Stop Dose Admin Etomidate 10 mg 12/25/24 12:35 12/25/24 13:46 Etomidate 2 Mg/Ml Inj IVP 12/25/24 12:36 10 mg ONCE ONE Administration Sodium Chloride 1,000 mls @ 1,000 mls/hr 12/25/24 12:45 12/25/24 14:05 0.9 % Sodium Chloride 1000 Ml IV 12/25/24 13:44 Infused .Q1H MARILYN Infusion Magnesium Oxide 400 mg 12/25/24 14:00 12/25/24 14:34 Magnesium Oxide 400 Mg Tablet PO 12/25/24 14:01 400 mg ONCE ONE Administration Propofol 90 mg 12/25/24 12:32 12/25/24 14:20 Propofol 10 Mg/Ml Inj 1 mg/kg (90 mg) 12/25/24 12:33 Not Given IVP ONCE ONE <Adrien Jimenez DO - Last Filed: 12/25/24 14:24> Discontinued Medications Generic Name Dose Route Start Last Admin Trade Name Freq PRN Reason Stop Dose Admin Etomidate 10 mg 12/25/24 12:35 12/25/24 13:46 Etomidate 2 Mg/Ml Inj IVP 12/25/24 12:36 10 mg ONCE ONE Administration Sodium Chloride 1,000 mls @ 1,000 mls/hr 12/25/24 12:45 12/25/24 14:05 0.9 % Sodium Chloride 1000 Ml IV 12/25/24 13:44 Infused .Q1H MARILYN Infusion Magnesium Oxide 400 mg 12/25/24 14:00 12/25/24 14:34 Magnesium Oxide 400 Mg Tablet PO 12/25/24 14:01 400 mg ONCE ONE Administration Propofol 90 mg 12/25/24 12:32 12/25/24 14:20 Propofol 10 Mg/Ml Inj 1 mg/kg (90 mg) 12/25/24 12:33 Not Given IVP ONCE ONE <Kimberly Carrasquillo MD - Last Filed: 12/25/24 15:33> MDM - Arrhythmia/Palpitations MDM Narrative Medical decision making narrative: Patient is a 79-year-old male presenting for rapid heart rate. It is hard to say definitively but on the monitor does appear to be in a flutter. EKG was done this also does not definitively show a flutter. Of note when he was here 4 days ago his EKG looks similar in after the given thin is seen in showed clear flutter waves. Due to that I do not believe it is necessary to do the adenosine again as I am comfortable saying this is a flutter. He is hemodynamically stable. Will check a troponin, BMP, CBC, magnesium. L of fluids given to see if he has any response to it. Previously he has been sedated with etomidate so will use that medication again. Patient's lab work shows no concerning abnormalities. His potassium is 4.0 and magnesium was 1 point. Based on several previous conversations with Cardiology for these arrhythmias they would prefer potassium to be 4.0 an up and magnesium to be 2.0 and up. Due to this I will give him 1 dose of magnesium oxide. Troponin within normal limits. Cardioversion was performed and he is now in normal sinus rhythm. Repeat EKG shows heart rate of 81. He is doing well and will be discharged <Adrien Jimenez DO - Last Filed: 12/25/24 14:24> Lab Data Labs: Lab Results 12/25/24 Range/Units 12:32 WBC 6.02 (4.50-11.00) K/uL RBC 4.53 (4.30-5.90) m/uL Hgb 12.5 L (13.5-17.5) gm/dL Hct 40.3 (37.0-53.0) % MCV 89 (80-100) fL MCH 28 (26-34) pg MCHC 31 L (32-36) gm/dL RDW Coeff of Gin 15.4 (11.5-15.5) % Plt Count 261 (140-440) K/uL Neut % (Auto) 63.9 (42.0-72.0) % Lymph % (Auto) 19.9 L (20-44) % [place] % (Auto) 13.0 H (0.0-11.0) % Eos % (Auto) 2.5 (0.0-7.0) % Baso % (Auto) 0.5 (0.0-3.0) % Neut # (Auto) 3.85 (1.7-7.0) K/uL Lymph # (Auto) 1.20 (0.90-2.90) K/uL [place] # (Auto) 0.80 (0.00-0.90) K/UL Eos # (Auto) 0.15 (0.00-0.50) K/uL Baso # (Auto) 0.03 (0.00-0.30) K/uL Abs Immat Gran (auto) 0.01 (0.00-0.30) K/uL Imm/Tot Granulo (auto) 0.2 % Sodium 139 (135-149) mmol/L Potassium 4.0 (3.6-5.1) mmol/L Chloride 107 (96-114) mmol/L Carbon Dioxide 22 (20-32) mmol/L Anion Gap 10 (7-15) mEq/L BUN 19 (7-30) mg/dL Creatinine 1.0 (0.5-1.5) mg/dL Estimated Creat Clear 67.90 Estimated GFR 78 ml/min Glucose 98 (60-115) mg/dL Calcium 9.6 (8.4-10.6) mg/dL Magnesium 1.9 (1.5-2.6) mg/dL POC Troponin I 0.01 (0.01-0.04) ng/ml <Adrien Jimenez DO - Last Filed: 12/25/24 14:24> Lab Results 12/25/24 Range/Units 12:32 WBC 6.02 (4.50-11.00) K/uL RBC 4.53 (4.30-5.90) m/uL Hgb 12.5 L (13.5-17.5) gm/dL Hct 40.3 (37.0-53.0) % MCV 89 (80-100) fL MCH 28 (26-34) pg MCHC 31 L (32-36) gm/dL RDW Coeff of Gin 15.4 (11.5-15.5) % Plt Count 261 (140-440) K/uL Neut % (Auto) 63.9 (42.0-72.0) % Lymph % (Auto) 19.9 L (20-44) % [place] % (Auto) 13.0 H (0.0-11.0) % Eos % (Auto) 2.5 (0.0-7.0) % Baso % (Auto) 0.5 (0.0-3.0) % Neut # (Auto) 3.85 (1.7-7.0) K/uL Lymph # (Auto) 1.20 (0.90-2.90) K/uL [place] # (Auto) 0.80 (0.00-0.90) K/UL Eos # (Auto) 0.15 (0.00-0.50) K/uL Baso # (Auto) 0.03 (0.00-0.30) K/uL Abs Immat Gran (auto) 0.01 (0.00-0.30) K/uL Imm/Tot Granulo (auto) 0.2 % Sodium 139 (135-149) mmol/L Potassium 4.0 (3.6-5.1) mmol/L Chloride 107 (96-114) mmol/L Carbon Dioxide 22 (20-32) mmol/L Anion Gap 10 (7-15) mEq/L BUN 19 (7-30) mg/dL Creatinine 1.0 (0.5-1.5) mg/dL Estimated Creat Clear 67.90 Estimated GFR 78 ml/min Glucose 98 (60-115) mg/dL Calcium 9.6 (8.4-10.6) mg/dL Magnesium 1.9 (1.5-2.6) mg/dL POC Troponin I 0.01 (0.01-0.04) ng/ml <Kimberly Carrasquillo MD - Last Filed: 12/25/24 15:33> ECG Data Attestation: I personally reviewed and interpreted this ECG as follows: <Adrien Jimenez DO - Last Filed: 12/25/24 14:24> Prior ECG tracings: available for review <Adrien Jimenez DO - Last Filed: 12/25/24 14:24> Interpretation: Initial EKG at 12:34: A flutter with a rate of 136 beats per minute, normal QRS, no ST or T-wave abnormalities. Appears similar previous a flutter EKG on 12/21/2024 Repeat EKG post cardioversion at 13:49: Sinus tachycardia with occasional PVCs with a rate of 81 beats per minute, normal intervals, normal axis, no ST or T-wave abnormalities. I do not see clear signs of QT prolongation. <Adrien Jimenez DO - Last Filed: 12/25/24 14:24> Discharge Plan Discharge Clinical Impression: Atrial flutter Qualifiers: Atrial flutter type: unspecified Qualified Code(s): I48.92 - Unspecified atrial flutter <Adrien Jimenez DO - Last Filed: 12/25/24 14:24> Patient Disposition: Home, Self-Care <Adrien Jimenez DO - Last Filed: 12/25/24 14:24> Condition: Improved <Adrien Jimenez DO - Last Filed: 12/25/24 14:24> Instructions: Atrial Flutter (DC) <Adrien Jimenez DO - Last Filed: 12/25/24 14:24> Additional Instructions: You can continue to do your exercises. Return to emergency department for new or worsening symptoms. <Adrien Jimenez DO - Last Filed: 12/25/24 14:24> Prescriptions: No Action peg 400-propylene glycol 0.4-0.3 % drops,gel 1 drp ophthalmic (eye) BID Rx Instructions: Apply 1 Drop to eye two times a day. cyclobenzaprine 10 mg tablet 10 mg PO QHS Qty: 20 1RF xyosted INJECTION Patient Comments: Patient unsure of the dose. Repatha SureClick 140 mg/mL pen injector 140 mg subcut Q14D eszopiclone 1 mg tablet 1 mg PO HS amlodipine 5 mg tablet 5 mg PO DAILY aspirin 81 mg capsule 81 mg PO DAILY amiodarone 200 mg tablet 200 mg PO BID celecoxib 100 mg capsule 100 mg PO BID PRN omeprazole 40 mg capsule,delayed release(DR/EC) 40 mg PO DAILY clobetasol 0.05 % cream 1 applic topical betamethasone, augmented 0.05 % ointment 1 applic topical PRN Eliquis 5 mg tablet 5 mg PO BID <Adrien Jimenez DO - Last Filed: 12/25/24 14:24> Follow Up/Referrals: Adrien Hernandez MD [Primary Care Provider, Family Practice] <Adrien Jimenez DO - Last Filed: 12/25/24 14:24> Stand Alone Forms: [employer] Info Instructions <Adrien Jimenez DO - Last Filed: 12/25/24 14:24> Procedures Additional Procedures Procedure name: Cardioversion <Adrien Jimenez DO - Last Filed: 12/25/24 14:24> Pre procedure diagnosis: A flutter <Adrien Jimenez DO - Last Filed: 12/25/24 14:24> Post procedure diagnosis: Normal sinus rhythm <Adrien Jimenez DO - Last Filed: 12/25/24 14:24> Written consent by: patient <Adrien Jimenez DO - Last Filed: 12/25/24 14:24> Conclusion: patient tolerated procedure <Adrien Jimenez DO - Last Filed: 12/25/24 14:24> Additional comments: 200 mJ used <Adrien Jimenez DO - Last Filed: 12/25/24 14:24>
[2024-12-25 13:06] LABS: Slide Review Reflex No
[2024-12-25 13:12] LABS: Chloride* 107 mmol/L (96-114); Sodium* 139 mmol/L (135-149)
[2024-12-25 13:15] LABS: Anion Gap 10 mEq/L (7-15); Blood Urea Nitrogen* 19 mg/dL (7-30); Carbon Dioxide* 22 mmol/L (20-32); Estimated Glomerular Filt Rate 78 ml/min
[2024-12-25 13:16] LABS: Calcium* 9.6 mg/dL (8.4-10.6); Glucose* 98 mg/dL (60-115); Magnesium* 1.9 mg/dL (1.5-2.6)
[2024-12-25 13:22] LABS: Troponin, Point-of-Care* 0.01 ng/ml (0.01-0.04)
[2024-12-25] MEDS: ETOMIDATE 2 MG/ML inj 10 MG IVP (13:46)
[2024-12-25] MEDS: MAGNESIUM OXIDE 400 MG TABLET PO (14:34)
== END 2024-12-25 14:40 | disposition home or self-care (01) ==
PROVIDERS: Emergency Provider Student in an Organized Health Care Education/Training Program; PCP Surgery
DX: I48.92 Unspecified atrial flutter (principal)
CPT/HCPCS: 92960; 36415; 80048; 83735; 84484; 85025; 93005; 99152; 99284; 99285; A9270; J7030

== ENCOUNTER 2025-02-16 10:19 | Day surgery (SDC) | payer MEDICARE, OTHER, SELFPAY ==
[2025-02-16] VITALS (26 sets, daily range): BP systolic 103–134; BP diastolic 64–89; PULSE 67–94; RESP 14–20; TEMP 35.5–36.9; O2SAT 90–100; BMI 26.3
--- NOTE | 2025-02-16 | CRLHL7_ITS ---
For Patients: As a result of the Cures Act, medical imaging exams and procedure reports are released immediately into your electronic medical record. You may view this report before your referring provider. If you have questions, please contact your health care provider. Indication: Post op JETHRO left hip Technique: AP hip centered pelvis and lateral view left hip Findings/Impression: Hardware from a left total hip arthroplasty is in satisfactory position. Bone alignment is normal. No sign of acute fracture. Postop changes are within normal limits. Dictated by Paras Rodriguez MD @ 02/16/2025 3:43:01 PM (Electronically Signed)
[2025-02-16] MEDS: SODIUM CHLORIDE 0.9 % (FLUSH) 10 ML SYRINGE IVF (11:07)
[2025-02-16] MEDS: LACTATED RINGERS 1000 ML 1,000 ML 100 ML IV ×2 (11:07→14:00)
[2025-02-16] MEDS: OXYCODONE (CR) 10 MG TAB.ER.12H PO (11:19)
--- NOTE | 2025-02-16 11:35 | SUR.PREOP ---
TIME?OUT:?1136 PT/RN/MDA?VERIFICATION?OF?SURGICAL?SITE,?PROCEDURE,?AND?CONSENT OBTAINED?PRIOR?TO?INVASIVE?PROCEDURE.
[2025-02-16] MEDS: MIDAZOLAM HCL 1 MG/ML inj IVP (11:38)
--- NOTE | 2025-02-16 11:43 | P.NB_ITS ---
Nerve Block Nerve Block Time Seen by Provider: 11:40 Date Seen: 02/16/25 Type of block requested by surgeon for post-operative analgesia: KEYON/LFCN Side: left Time out performed: Yes Verification of patient name: Yes Verification of date of : Yes Site marking: site marked Name of person performing procedure: Cas Continuous monitoring Was continuous monitoring of O2 sat, B/P, environmental monitoring specialist, recorded every 15 minutes?: Yes Procedure Checklist: sterile prep, needles and gloves Ultrasound guided. Images saved: Yes Medications given in 5ml increments after negative aspiration: Ropivicaine %: 0.5 mL: 30 Needle gauge: 20 Precedex (mcg): 25 Patient tolerated procedure well: Yes Additional comments: Needle noted below psoas tendon needle noted adjacent to LFCN Block Charges Block Charge (with Pro Fee): Other Periph Nerve Block Use of Ultrasound Machine for Block: Yes- US Guidance/pain block
--- NOTE | 2025-02-16 12:00 | CRLHL7_ITS ---
For Patients: As a result of the Cures Act, medical imaging exams and procedure reports are released immediately into your electronic medical record. You may view this report before your referring provider. If you have questions, please contact your health care provider. Indication: Hip replacement surgery Technique: AP hip fluoroscopic image. Fluoroscopy time 25.9 seconds. Findings/Impression: Hardware from a left total hip arthroplasty is in satisfactory position. Dictated by Paras Rodriguez MD @ 02/16/2025 3:22:08 PM (Electronically Signed)
[2025-02-16] MEDS: TRANEXAMIC ACID 100 MG/ML INJ 1000 MG IV (12:17)
--- NOTE | 2025-02-16 13:43 | P.ORPRC_ITS ---
Procedure Note Date of procedure: 02/16/25 Procedure: PREOPERATIVE DIAGNOSIS: 1. Left hip osteoarthritis, severe, primary 2. Left anterior thigh intramuscular (anterior quadriceps) benign mass, suspected lipoma POSTOPERATIVE DIAGNOSIS: 1. Left hip osteoarthritis, severe, primary 2. Left anterior thigh intramuscular (anterior quadriceps) benign mass, suspected lipoma PROCEDURE: 1. Left total hip arthroplasty-anterior approach 2. Left anterior thigh deep to fascia benign mass open excision (mass measured 13 x 7 x 6 cm) 3. [id number] - intraoperative fluoroscopy up to 1 hour. SURGEON: Catracho Tavera MD. CONFERENCE PRODUCER: Adrien Campos PA-C; BRIANDA Parham - Of note, a skilled billing and accounting staff assistant was critical for this case to aid in patient positioning, tissue retraction, limb manipulation/positioning, dislocation/relocation, patient safety, and closure. ANESTHESIA: General endotracheal anesthetic EBL: 250ml SPECIMEN: Single specimen from the anterior left mid thigh, deep to the rectus fascia sent for permanent pathology. IMPLANTS: DePuy J&J uncemented total hip [place] cup size 54, hole eliminator, +4 neutral liner Actis stem, standard offset, size 8 -2 mm ceramic 36 mm head. COMPLICATIONS: None evident INDICATIONS: The patient is a pleasant 79-year-old male who has experienced severe left hip pain and difficulty bearing weight. Workup included x-rays which revealed severe osteoarthrosis in the hip. Given the deformity, the dysfunction, and the pain, as well as the failure of nonoperative management, recommendation was made for surgery. FINDINGS: Full-thickness chondral loss diffusely throughout the femoral head/ acetabulum. Osteophytes around the femoral head/neck junction and perimeter of the acetabulum. Large effusion upon entering the joint. Thick capsule. The left anterior thigh mass was deep to the quadriceps fascia. Once mobilized from its surrounding mild adhesions, it readily popped out from the wound. Measurements are noted above. This appeared to be consistent with a simple lipoma. No significant vascular attachments. DESCRIPTION OF PROCEDURE: Following a thorough discussion of risks, benefits, and alternatives consent was obtained and the left hip was marked. The patient was brought to the operating room and placed supine on the operating table. Induction of anesthesia was undertaken. 2 g IV Ancef and 1 g tranexamic acid was administered within 1 hr of incision preoperatively. Proper time-out was performed identifying proper patient, site, procedure. The operative extremity was prepped and draped in the appropriate sterile fashion using ChloraPrep after the patient was positioned on the Thompson table with head in neutral alignment and all bony prominences well padded. C-arm fluoroscopic imaging was utilized to confirm proper pelvis rotation and position, and to get true AP films of both the contralateral left, and the affected left hip. This is for comparison. We began with the anterior thigh mass open excision. Sharp incision through the skin longitudinally in line with the mass followed by Bovie cautery through the subcutaneous fat layer. Once the fascia was released, thick flaps were mobilized with the Metzenbaum scissors. The rectus fascia was then sharply incised with the scalpel. It was mobilized again with the Metzenbaum scissors. Just deep to the thin rectus muscle fibers we identified the obvious lipoma. This was mobilized from the surrounding tissue on all 6 sides. It had no significant vascular stump. Once it was mobilized, it readily popped out of the wound. Its measurement was noted above. It was sent for permanent pathology. We did tag the deep proximal part of the mass with a short silk suture and the lateral part of the mass with a long silk suture. Of note, we placed a wet Ray- Abhishek in the wound temporarily and sealed it with Ioban. Our gloves were changed and the Metzenbaum scissors and the [employer] retractors were tossed a side. We used all new instruments for the total hip procedure to follow. We then turned our attention to the total hip replacement procedure. A separate longitudinal incision was made starting approximately 1 cm distal to the ASIS, and 2-3 cm lateral. The incision was extended distally aiming toward the fibular head. Sharp incision through skin and bovie cautery through the subcutaneous tissue allowed identification of the TFL fascia. This was sharply divided, and the fascia bluntly released from the muscle fibers as we dissected medial. Upon coming to the medial border, we were able to retract the TFL laterally, and penetrated the deeper fascia and identify the crossing circumflex vessels. These were ligated/cauterized. The rectus was elevated from the capsule, and retractors placed laterally and medially along the femoral neck to help with visualization of the capsule. We then performed an inverted T capsulotomy. The capsule was tagged for later repair. Retractors were placed inside the capsule. The femoral neck was visualized after releasing medially down to the lesser trochanter, along the saddle laterally, and up onto the acetabulum. The femoral neck cut was made in line with our preoperative templating. The head was removed in a single piece, and sized. We turned our attention to acetabular preparation. Initially, the labrum was resected from around the perimeter, the pulvinar was excised, allowing us to visualize the false wall. We started the reaming with a 43 mm reamer. This was medialized down to the true wall. We then enlarged our reamers sequentially up to one size less than the selected cup size. We trialed at the same size and found it to have an excellent fit. The selected cup was then opened, inserted, and impacted in line with the goal of 40-45? of abduction, and 20-25? of anteversion. This was confirmed on C-arm fluoroscopic imaging to be in the appropriate/goal position. Once the cup was placed we placed a hole eliminator and a liner consistent with preop planning. Attention was turned to the femoral preparation. The limb was extended, externally rotated, and adducted. The posteromedial capsule was released, as retractors were placed allowing excellent access to the proximal femur. Initially a primer boxer was followed by canal finder followed by various broaches. We broached sequentially up to size noted above, found it to have excellent rotational control, and trialing various heads and necks, revealed th at appropriate neck offset, and the above noted head size provided the greatest stability, and methodist of length, and offset. C-arm fluoroscopic imaging confirmed position of the stem, as well as leg lengths, which were compared with the pre procedure all fluoroscopic images. Trial implants were removed, the real femoral stem inserted, as was the ceramic head. After reducing, the leg was placed through range of motion and stability was confirmed anterior, posterior, and lateral. A 3 min Betadine soak was then performed, and thorough irrigation with normal saline followed. Closure of the capsule was performed with #1 PDS. Bleeding was confirmed to be controlled at this stage, and the TFL fascia was closed with #0 strata fix. Subcutaneous, and subcuticular closure was performed with 2-0 Stratafix and 4-0 Stratafix, respectively. Dressings were applied, and the patient was awoken from anesthesia and transferred the PACU in stable condition. A skilled billing and accounting staff assistant was critical for this case to aid in patient positioning, tissue retraction, proximal femur exposure, limb manipulation/positioning, dislocation/relocation, patient safety, and closure. PLAN: 1. Weight bear as tolerated operative extremity. 2. 23 hr perioperative antibiotics. 3. Ice. 4. PT/OT consults for ambulation assistance/mobility education. 5. Social work consult for discharge planning. 6. DVT prophylaxis with at SCDs and Xarelto x5 days followed by aspirin for a total of 1 month.
--- NOTE | 2025-02-16 13:46 | W.PM.H&PU ---
History & Physical Update History & Physical Update H&P Reviewed and patient assessed: No changes noted
--- NOTE | 2025-02-16 14:54 | P.ANES_ITS ---
Anesthesia Charges Start Date/Time Anesthesia Start Date: 02/16/25 Anesthesia Start Time: 12:00 Stop Date/Time Anesthesia Stop Date: 02/16/25 Anesthesia Stop Time: 14:58 Coding CPT Codes CPT Codes: ANESTH HIP ARTHROPLASTY - 15606 ([id number]) P3 - PATIENT W/SEVERE SYS DISEASE, QK - CERTIFIED MEDICAL CODER 2-4 CNCRNT ANES PROC, QX - MENTAL HEALTH CLINICIAN SVC W/ MD MED DIRECTION
--- NOTE | 2025-02-16 14:54 | W.ANESCHARGE ---
Anesthesia Charges Start Date/Time Anesthesia Start Date: 02/16/25 Anesthesia Start Time: 12:00 Stop Date/Time Anesthesia Stop Date: 02/16/25 Anesthesia Stop Time: 14:58 Coding CPT Codes CPT Codes: ANESTH HIP ARTHROPLASTY - 95687 ([id number]) P3 - PATIENT W/SEVERE SYS DISEASE, QK - DRUG ABUSE RESISTANCE EDUCATION OFFICER 2-4 CNCRNT ANES PROC, QX - VERMIN EXTERMINATOR SVC W/ MD MED DIRECTION
--- NOTE | 2025-02-16 16:08 | PM.IMCN1 ---
Date of Consult Consult date: 02/16/25 Requesting Physician: Orthopedics Primary Care Provider: Adrien Hernandez MD Consult Narrative Reason for consult: post op care Narrative: HOSPITALIST CONSULT PROCEDURE: -Left total hip arthroplasty-anterior approach -Left anterior thigh deep to fascia benign mass open excision (mass measured 13 x 7 x 6 cm) SURGEON: Catracho Tavera MD. ANESTHESIA: General endotracheal anesthetic EBL: 250ml SPECIMEN: Single specimen from the anterior left mid thigh, deep to the rectus fascia sent for permanent pathology. COMPLICATIONS: None evident The hospital medicine team was asked by the orthopedic surgery team to manage the patient's extensive cardiac history. There have been no perioperative complications. Chente is 3.5 months (11/04/24 at [facility]) out from open heart surgery for grafting of a known thoracic aortic aneurysm and aortic valve replacement. His surgery was complicated by in house cardiac arrest due to his temporary pacemaker undersensing and sending an impulse during repolarization. He went into polymorphic VT and was defibrillated successfully with quick ROSC; no CPR. Despite thwarting this complication he continued to have his AFIB that has been treated for years. He had previous RF ablations and multiple cardioversions. He failed amiodarone and sotalol for management. He received an occluder device in 2022 (watchman). Ultimately he had a PFA ablation on 12/28/24. He's been in sinus since. he has been on Eliquis despite the watchman after all the procedures this summer; it appears this will be limited in duration. He also has multiple orthopedic complaints, insomnia, hx of prostate cancer I have updated and reviewed the active medical problems, past medical history, past surgical history, social history, allergies and medications in our electronic EMR. This includes a cross reference to care everywhere in [facility] and with [facility] databases. PLAN as of 12/29/24 1.??Eliquis 5mg BID?for cardio-embolic risk reduction ?-[id number] VASc score 3?(HTN, age x2) 2. ?Medication changes: - Lasix 20 mg daily PRN for fluid retention until weight back to baseline - Discontinue Amiodarone - Continue all other AIRPORT RAMP SUPERVISOR medications 3. ?Follow up with primary care provider in 1-2 weeks for femoral access site assessment 4. Okay to stop apixaban and resume ASA in ~ 2 months (02/23/2025) pending rhythm stability - Communicated to Mr. Rubin - Recommend he call in ~ 2 month with update on symptoms to further discuss this 5. ?Follow up in the [facility] scheduled for 06/23/2025 6. Mr. Rubin can be discharged home status post ablation Cardiology recommended waiting 6-8 weeks after ablation before proceeding with hip surgery. If no a fib, he can proceed with surgery.?He has been checking his rhythm on his home K[employer]ia[employer]. He has had a couple episodes of lightheadedness since his surgery but not in the last week. Usually related to standing up. No syncope. PHYSICAL EXAM: CODE STATUS: FULL CODE CONSTITUTIONAL: Conversive, good historian. A/O. Knows setting and context. VITAL SIGNS: see record. HEENT: Normocephalic, atraumatic. PERRL, EOMI, conjunctivae pink, no scleral icterus. Ears and nose externally normal. Pharynx normal. NECK: No JVD. No carotid bruit, no thyromegaly, no adenopathy. CHEST: Clear to auscultation bilaterally HEART: S1 and S2 normal. ABDOMEN: Flat, soft, nontender. Normal bowel sounds. Moderately obese. EXTREMITIES: No edema. MUSCULOSKELETAL: SDI intact. NEURO: Cranial nerves intact. Mentation normal. Normal affect. SKIN: No rashes, petechiae, concerning changes PSYCHIATRIC: Mentation normal. 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) On continuous oral anticoagulation ?Z79.01 - reading professor (current) use of anticoagulants (ICD-10) History of cardioversion ?Z92.89 - Personal history of other medical treatment (ICD-10) Postoperative cardiac arrest following cardiac surgery ?I97.120 - Postprocedural cardiac arrest following cardiac surgery (ICD-10) Osteoarthritis of right shoulder ?M19.011 - Primary osteoarthritis, right shoulder (ICD-10) Osteoarthritis of left knee ?M17.12 - Unilateral primary osteoarthritis, left knee (ICD-10) Osteoarthritis of right knee ?M17.11 - Unilateral primary osteoarthritis, right knee (ICD-10) COVID-19 ?U07.1 - COVID-19 (ICD-10) Atrophy of quadriceps femoris muscle ?M62.559 - Muscle wasting and atrophy, not elsewhere classified, unspecified thigh (ICD-10) 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 ?M51.16 - Intervertebral disc disorders with radiculopathy, lumbar region (ICD-10) Osteoarthritis of left shoulder ?M19.012 - Primary osteoarthritis, left shoulder (ICD-10) Left rotator cuff tear arthropathy ?M75.102 - Unspecified rotator cuff tear or rupture of left shoulder, not specified as traumatic (ICD-10) ?M12.812 - Other specific arthropathies, not elsewhere classified, left shoulder (ICD-10) Health care directive on file ?Z78.9 - Other specified health status (ICD-10) Sarcoidosis ?D86.9 - Sarcoidosis, unspecified (ICD-10) Atrial fibrillation ?I48.91 - Unspecified atrial fibrillation (ICD-10) Chronic systolic CHF (congestive heart failure) ?I50.22 - Chronic systolic (congestive) heart failure (ICD-10) Prostate cancer ?C61 - Malignant neoplasm of prostate (ICD-10) Hypertension ?I10 - Essential (primary) hypertension (ICD-10) Laceration of left side of forehead with complication ?S01.81XA - Laceration without foreign body of other part of head, initial encounter (ICD-10) Facial injury ?S09.93XA - Unspecified injury of face, initial encounter (ICD-10) Chronic headache ?R51.9 - Headache, unspecified (ICD-10) ?G89.29 - Other chronic pain (ICD-10) Atrial flutter with rapid ventricular response ?I48.92 - Unspecified atrial flutter (ICD-10) Atrial fibrillation with rapid ventricular response ?I48.91 - Unspecified atrial fibrillation (ICD-10) Methicillin resistant Staphylococcus aureus culture positive (03/31/19) ?Z22.322 - Carrier or suspected carrier of Methicillin resistant Staphylococcus aureus (ICD-10) Diverticulitis ?K57.92 - Diverticulitis of intestine, part unspecified, without perforation or abscess without bleeding (ICD-10) Surgical History (Updated 02/16/25 @ 22:55 by Joseline Zheng MD) History of cardiac ablation for atrial fibrillation ?Z98.890 - Other specified postprocedural states (ICD-10) ?I48.91 - Unspecified atrial fibrillation (ICD-10) History of open occlusion of left atrial appendage ?Z98.890 - Other specified postprocedural states (ICD-10) S/P AVR (aortic valve replacement) ?Z95.2 - Presence of prosthetic heart valve (ICD-10) S/P thoracic aortic aneurysm repair ?Z98.890 - Other specified postprocedural states (ICD-10) ?Z86.79 - Personal history of other diseases of the circulatory system (ICD-10) S/P total left hip arthroplasty ?Z96.642 - Presence of left artificial hip joint (ICD-10) Status post tendon repair (07/21/23) ?Z98.890 - Other specified postprocedural states (ICD-10) H/O prostatectomy (10/2014) ?Z90.79 - Acquired absence of other genital organ(s) (ICD-10) History of elbow surgery (01/19/04) ?Z98.890 - Other specified postprocedural states (ICD-10) Status post arthroscopy of left shoulder (03/02/03) ?Z98.890 - Other specified postprocedural states (ICD-10) S/P ankle joint replacement ?Z96.669 - Presence of unspecified artificial ankle joint (ICD-10) H/O elbow surgery (~09/2017) ?Z98.890 - Other specified postprocedural states (ICD-10) Social History Narrative: -Kristen What is your current living situation?: I presently have a place to live Problems where you live: no known problems In the past 12 months, utilities in danger of being shut off: no In past 12 months, lack of transportation kept you from medical appts, meetings, work, or getting things needed for daily living: no In the past 12 mos, have been you worried that your food would run out before you had money to buy more?: never true In the past 12 mos, the food you bought just didn't last and you didn't have money to buy more?: never true Smoking Status: Never smoker Do you use any of these nicotine containing products: None Second hand tobacco smoke exposure: No How often do you have a drink containing alcohol: never AUDIT-C Alcohol total score: 0 Non-prescribed substance use: denies use Caffeine: Yes How often does anyone, including family, friends and others, physically hurt you: never How often does anyone, including family, friends and others, insult or talk down to you: never How often does anyone, including family, friends and others, threaten you with harm: never How often does anyone, including family, friends and others, scream or curse at you: never service: No Meds Home Medications and Allergies Home Medications ?Medication ?Instructions ?Recorded ?Confirmed ?Type amlodipine 5 mg tablet 5 mg PO DAILY 07/10/22 02/16/25 History evolocumab 140 mg/mL subcutaneous 140 mg subcut Q14D 07/10/22 02/16/25 History pen injector (Jarod Rodriguez) omeprazole 40 mg capsule,delayed 40 mg PO DAILY 07/21/23 02/16/25 History release peg 400-propylene glycol 0.4 %-0.3 1 drp ophthalmic (eye) QID PRN 10/07/24 02/16/25 History % eye gel drops apixaban 5 mg tablet (Eliquis) 5 mg PO BID 12/21/24 02/16/25 History eszopiclone 1 mg tablet 2 mg PO HS 02/01/25 02/16/25 History acetaminophen 500 mg capsule 1,000 mg PO Q6H PRN 02/16/25 02/16/25 History celecoxib 100 mg capsule 100 mg PO DAILY 02/16/25 02/16/25 History Held on 02/16/25. Instructions: Resume on 03/17/25. oxycodone 5 mg tablet 2.5 - 5 mg (0.5 - 1 x 5 mg) PO 02/16/25 Rx Q4-6H PRN pain #42 tabs sennosides 8.6 mg-docusate sodium 1 - 4 tab-cap (1 - 4 x 8.6-50 mg) 02/16/25 Rx 50 mg tablet (Senna-S) PO BID PRN constipation #60 tabs testosterone enanthate 75 mg/0.5 75 mg subcut Q7D 02/16/25 02/16/25 History mL subcutaneous auto-injector (Xyosted) Allergies Allergy/AdvReac Type Severity Reaction Status Date / Time latex Allergy Unknown Verified 02/01/25 13:56 atorvastatin Allergy Verified 02/01/25 13:56 lisinopril Allergy Verified 02/01/25 13:56 naproxen Allergy Nausea Verified 02/01/25 13:56 rosuvastatin Allergy Verified 02/01/25 13:56 Exam Const: Vital Signs, click to edit/add: Vital Signs - 24 hr 02/16/25 11:18 02/16/25 11:34 02/16/25 11:40 Temperature 98.4 F Pulse Rate 86 85 82 Respiratory Rate 16 16 14 Blood Pressure 127/82 134/86 122/79 Pulse Oximetry 96 97 98 Oxygen Delivery Me thod Room Air Nasal Cannula Nasal Cannula Oxygen Flow Rate 3 3 02/16/25 11:45 02/16/25 11:50 02/16/25 15:00 Temperature 97 F L Pulse Rate 77 72 69 Respiratory Rate 14 14 16 Blood Pressure 120/74 107/66 104/64 Pulse Oximetry 98 96 99 Oxygen Delivery Me thod Nasal Cannula Nasal Cannula Room Air Oxygen Flow Rate 3 3 02/16/25 15:05 02/16/25 15:10 02/16/25 15:15 Temperature Pulse Rate 70 69 71 Respiratory Rate 14 14 14 Blood Pressure 105/67 104/67 110/71 Pulse Oximetry 99 98 100 Oxygen Delivery Me thod Room Air Room Air Room Air Oxygen Flow Rate 02/16/25 15:20 02/16/25 15:25 02/16/25 15:30 Temperature 97 F L Pulse Rate 71 68 68 Respiratory Rate 14 14 14 Blood Pressure 108/75 106/69 103/68 Pulse Oximetry 99 99 98 Oxygen Delivery Me thod Room Air Room Air Room Air Oxygen Flow Rate Assessment and Plan Assessment and plan (1) S/P total left hip arthroplasty: Problem comment: Dr. Humphries, 02/16/2025 Hospital medicine team is happy to follow the patient through to discharge. He is a complicated We are expecting a routine postoperative course. I have reconciled home medications and completed our part of the discharge. -I will hold antihypertensives as indicated per our practice standard -I will place telemetry order -Recommend continuing eliquis the morning of 02/17 for anticoagulation. Status: Acute (2) Lipoma of left thigh: Problem comment: -mass measured 13 x 7 x 6 cm -anterior thigh -surgically excised february 2025; tagged and sent to pathology. clinically c/w lipoma. Status: Acute (3) Postoperative cardiac arrest following cardiac surgery: Problem comment: Polymorphic VT from his pacemaker postop. The thought was the pacer delivered the pacing stimulus during the T wave. under sensing error. Defibrillated; no CPR. ROSC without complication. Status: Acute (4) History of cardiac ablation for atrial fibrillation: Problem comment: complicated history; failed ablations in 2014 and 2020 watchman placed in 2022 recurrent afib/flutter in 2024 - chalo after cardiac surgery for AVR/aneurysmal repair w/graft; cardioversions failed ... last intervention: 12/28/24 - ablation for atypical atrial flutter x2 (PFA Affera). NSR since. Pt has [employer] for home monitoring. 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 finally had a PFA ablation (vs RF) on 12/28/24 - NSR since Status: Acute (6) Atrial fibrillation: Problem comment: -s/p cardioversions; ablations, watchman device -hx of amiodarone, sotalol -after PFA ablation in December 2024; NSR Status: Chronic (7) Hypertension: Problem comment: -resume home dose amlodipine upon discharge Status: Chronic (8) On continuous oral anticoagulation: Problem comment: -has a watchman but with recent procedures; is on elquis thru 02/23/25 -I would extend this for the entire period of VTE prophylaxis. Status: Acute (9) S/P AVR (aortic valve replacement): Problem comment: 11/04/24 [facility]; Dr. Raudel Rhodes MADAI-STERNOTOMY, AORTIC VALVE REPLACEMENT WITH 25MM INSPIRIS, ASCENDING AORTIC ANEURYSM REPAIR WITH 28MM STRAIGHT GELWEAVE GRAFT, PLACEMENT OF TEMPORARY VENTRICULAR PACING WIRES Status: Acute (10) S/P thoracic aortic aneurysm repair: Problem comment: 11/04/24 [facility]; Dr. Raudel Rhodes MADAI-STERNOTOMY, AORTIC VALVE REPLACEMENT WITH 25MM INSPIRIS, ASCENDING AORTIC ANEURYSM REPAIR WITH 28MM STRAIGHT GELWEAVE GRAFT, PLACEMENT OF TEMPORARY VENTRICULAR PACING WIRES Status: Acute (11) Chronic systolic CHF (congestive heart failure): Problem comment: -stable, EF Normal -CAD noted to be asymptomatic; on CTA only -on injectable Repathka Status: Chronic (12) Spinal stenosis: Status: Acute
[2025-02-16] MEDS: CEFAZOLIN 2 GM in 0.9 % SODIUM CHLORIDE Mini-bag 100 ML IVPB (18:10)
[2025-02-16] MEDS: ACETAMINOPHEN 500 MG TABLET 1000 MG PO (18:10)
--- NOTE | 2025-02-16 19:26 | PC.NURSE ---
End of shift [id number] - Pt arrived from PACU at approximately 1540. Pt alert, oriented, cooperative. Up with standby assistance and walker/gait belt. Pt able to void during shift. Tolerating RA and regular diet/fluids. Pt reported pain in L hip as 4-5/10. Medication given per MAR and ice pack provided for comfort. Pt reported improvement. Dressing x 2 CDI, pedal pulse intact. RN noted pt pupils to be uneven in size and reactivity, made aware. Pt and spouse report this condition is pre-existing and is the pt baseline. Pt reported to RN that the fingers on L hand were numb, tingly, and feel like they are asleep. Pt retains motor control of hand and fingers and reports having sensation in hand and arm. made aware. Pt appears to be resting comfortably in bed at end of shift with call light within reach and family at bedside.
[2025-02-16] MEDS: SENNOSIDES 1 TAB TABLET 2 TAB PO (20:47)
[2025-02-17] MEDS: ACETAMINOPHEN 500 MG TABLET 1000 MG PO ×2 (00:12→06:05)
[2025-02-17 01:45] VITALS: BP 118/66; PULSE 99; RESP 18; O2SAT 98
[2025-02-17] MEDS: CEFAZOLIN 2 GM in 0.9 % SODIUM CHLORIDE Mini-bag 100 ML IVPB (01:45)
[2025-02-17 05:00] VITALS: BP 142/84; PULSE 101; RESP 16; TEMP 36.8; O2SAT 94
[2025-02-17] MEDS: OMEPRAZOLE 20 MG CAPSULE DR 40 MG PO (06:05)
[2025-02-17] MEDS: ONDANSETRON 2 MG/ML inj 4 MG IVP (06:32)
[2025-02-17 07:00] VITALS: PULSE 100
--- NOTE | 2025-02-17 07:00 | PC.NURSE ---
Arrived to find the patient in bed, alert and oriented and on their last few hours of frequent, post-op vitals. My first assessment found the skin around their incision areas to be a light red and swollen. Ice has been applied on these areas since admission. As time went on the redness went away and the swelling seems to have become less pronounced. He was experiencing a light tingeling in his left fingers at shift start. By shift end he was no longer experiencing this. Unequal pupils present on assessment are a result of a golfing accident resulting in head trauma, per the patient. CMS intact in all extremities. Pain has been difficult to manage. Pretty consistently at an 8/10 in the incision area. Able to tolerate PO. Ambulation is painful. Not yet able to dexterously use his left leg at 0600. ?Nausea reported in the morning. Zofran given. ?
[2025-02-17 08:00] VITALS: PULSE 101; RESP 16
[2025-02-17] MEDS: SENNOSIDES 1 TAB TABLET 2 TAB PO (08:17)
[2025-02-17] MEDS: APIXABAN 5 MG TABLET PO (08:17)
[2025-02-17 09:00] VITALS: BP 102/56; PULSE 93; RESP 18; O2SAT 96
--- NOTE | 2025-02-17 09:06 | P.ORPN_ITS ---
Subjective Subjective Date Seen: 02/17/25 Principal diagnosis: Status postop day 1, left total hip arthroplasty - anterior approach Interval history: Patient reports doing okay. Pain notable through the left thigh and hip region. No acute events over night. Complains of some numbness involving the left hand digits, which he felt was weird, but now resolved. Pain managed with scheduled and PRN medications, ice. DVT prophylaxis: Apixaban, chronic medication with recent ablation x2 for atypical atrial flutter, SCDs, walking. Denies fevers, chills, aches, N/V, CP, SOB/GARCIA, or lightheadedness. Not passing flatus. He had nausea postop day 0, now resolved. Ortho Exam Narrative Exam Narrative: -Patient appears in discomfort, walking with physical therapy and working with therapy in the PT room. -Alert and oriented times 3 -Operative hip and thigh swollen; soft tissues supple; no obvious erythema. No significant ecchymosis. Warmth appropriate -Surgical dressing clean, dry, but coming off mid aspect, rolling; no obvious drainage, no erythematous streaking peripheral to the bandage -Thigh bandage looks healthy, intact. No drainage. -Bilateral calves soft and supple; no significant swelling, edema, tenderness, erythema, discoloration, warmth, or palpable cords -2+ DP/PT pulses, intact dermatomes and myotomes distally (5/5 strength). No numbness about the lateral femoral cutaneous nerve distribution. Const Vital Signs, click to edit/add: Vital Signs - 24 hr 02/16/25 11:18 02/16/25 11:34 02/16/25 11:40 Temperature 98.4 F Pulse Rate 86 85 82 Pulse Rate [Right Pulse Oximeter] Respiratory Rate 16 16 14 Blood Pressure 127/82 134/86 122/79 Blood Pressure [Right Arm] Pulse Oximetry 96 97 98 Oxygen Delivery Method Room Air Nasal Cannula Nasal Cannula Oxygen Flow Rate 3 3 02/16/25 11:45 02/16/25 11:50 02/16/25 15:00 Temperature 97 F L Pulse Rate 77 72 69 Pulse Rate [Right Pulse Oximeter] Respiratory Rate 14 14 16 Blood Pressure 120/74 107/66 104/64 Blood Pressure [Right Arm] Pulse Oximetry 98 96 99 Oxygen Delivery Method Nasal Cannula Nasal Cannula Room Air Oxygen Flow Rate 3 3 02/16/25 15:05 02/16/25 15:10 02/16/25 15:15 Temperature Pulse Rate 70 69 71 Pulse Rate [Right Pulse Oximeter] Respiratory Rate 14 14 14 Blood Pressure 105/67 104/67 110/71 Blood Pressure [Right Arm] Pulse Oximetry 99 98 100 Oxygen Delivery Method Room Air Room Air Room Air Oxygen Flow Rate 02/16/25 15:20 02/16/25 15:25 02/16/25 15:30 Temperature 97 F L Pulse Rate 71 68 68 Pulse Rate [Right Pulse Oximeter] Respiratory Rate 14 14 14 Blood Pressure 108/75 106/69 103/68 Blood Pressure [Right Arm] Pulse Oximetry 99 99 98 Oxygen Delivery Method Room Air Room Air Room Air Oxygen Flow Rate 02/16/25 15:40 02/16/25 16:00 02/16/25 16:15 Temperature 95.9 F L 96.2 F L 96.7 F L Pulse Rate Pulse Rate [Right Pulse Oximeter] 67 68 69 Respiratory Rate 16 16 16 Blood Pressure Blood Pressure [Right Arm] 111/68 104/69 111/72 Pulse Oximetry 90 93 94 Oxygen Delivery Method Room Air Room Air Room Air Oxygen Flow Rate 02/16/25 16:30 02/16/25 16:45 02/16/25 17:15 Temperature 96.4 F L 96.4 F L Pulse Rate Pulse Rate [Right Pulse Oximeter] 71 71 69 Respiratory Rate 18 18 18 Blood Pressure Blood Pressure [Right Arm] 110/78 113/76 128/85 Pulse Oximetry 97 100 97 Oxygen Delivery Method Room Air Room Air Room Air Oxygen Flow Rate 02/16/25 17:44 02/16/25 18:33 02/16/25 18:45 Temperature 96.3 F L 97.2 F L Pulse Rate 67 Pulse Rate [Right Pulse Oximeter] 70 82 Respiratory Rate 18 20 Blood Pressure Blood Pressure [Right Arm] 134/88 133/89 Pulse Oximetry 95 99 Oxygen Delivery Method Room Air Room Air Oxygen Flow Rate 02/16/25 19:45 02/16/25 20:45 02/16/25 21:50 Temperature 97 F L 97.1 F L 97.3 F L Pulse Rate Pulse Rate [Right Pulse Oximeter] 82 90 94 Respiratory Rate 18 18 18 Blood Pressure Blood Pressure [Right Arm] 124/74 130/84 132/81 Pulse Oximetry 96 97 96 Oxygen Delivery Method Room Air Room Air Room Air Oxygen Flow Rate 02/16/25 22:46 02/16/25 23:00 02/17/25 01:45 Temperature Pulse Rate 89 Pulse Rate [Right Pulse Oximeter] 99 Respiratory Rate 18 18 Blood Pressure Blood Pressure [Right Arm] 118/66 Pulse Oximetry 96 98 Oxygen Delivery Method Room Air Room Air Oxygen Flow Rate 02/17/25 05:00 02/17/25 07:00 Temperature 98.3 F Pulse Rate 100 Pulse Rate [Right Pulse Oximeter] 101 H Respiratory Rate 16 Blood Pressure Blood Pressure [Right Arm] 142/84 H Pulse Oximetry 94 Oxygen Delivery Method Room Air Oxygen Flow Rate Assessment and Plan Assessment and plan (1) S/P total left hip arthroplasty: Problem details: Dr. Humphries, 02/16/2025 Hospital medicine team is happy to follow the patient through to discharge. He is a complicated We are expecting a routine postoperative course. I have reconciled home medications and completed our part of the discharge. -I will hold antihypertensives as indicated per our practice standard -I will place telemetry order -Recommend continuing eliquis the morning of 02/17 for anticoagulation. Status: Acute (2) Lipoma of left thigh: Problem details: -mass measured 13 x 7 x 6 cm -anterior thigh -surgically excised february 2025; tagged and sent to pathology. clinically c/w lipoma. Status: Acute (3) Postoperative cardiac arrest following cardiac surgery: Problem details: Polymorphic VT from his pacemaker postop. The thought was the pacer delivered the pacing stimulus during the T wave. under sensing error. Defibrillated; no CPR. ROSC without complication. Status: Acute (4) History of cardiac ablation for atrial fibrillation: Problem details: complicated history; failed ablations in 2014 and 2020 watchman placed in 2022 recurrent afib/flutter in 2024 - chalo after cardiac surgery for AVR/aneurysmal repair w/graft; cardioversions failed ... last intervention: 12/28/24 - ablation for atypical atrial flutter x2 (PFA Affera). NSR since. Pt has [employer] for home monitoring. on OAC, eliquis 5 mg BID substation operator is Dr Goodman at [facility] Status: Acute (5) History of cardioversion: Problem details: several interventions in 2024 [facility]: 11/10/24 PABLO guided cardioversion (post op and after VTach defibrillation) and 12/15/24 cardioverted again [facility]: Jul 2024 x 2, aug 2024, December 2024 x 2. finally had a PFA ablation (vs RF) on 12/28/24 - NSR since Status: Acute (6) Atrial fibrillation: Problem details: -s/p cardioversions; ablations, watchman device -hx of amiodarone, sotalol -after PFA ablation in December 2024; NSR Status: Chronic (7) Hypertension: Problem details: -resume home dose amlodipine upon discharge Status: Chronic (8) On continuous oral anticoagulation: Problem details: -has a watchman but with recent procedures; is on elquis thru 02/23/25 -I would extend this for the entire period of VTE prophylaxis. Status: Acute (9) S/P AVR (aortic valve replacement): Problem details: 11/04/24 [facility]; Dr. Raudel Rhodes MADAI-STERNOTOMY, AORTIC VALVE REPLACEMENT WITH 25MM INSPIRIS, ASCENDING AORTIC ANEURYSM REPAIR WITH 28MM STRAIGHT GELWEAVE GRAFT, PLACEMENT OF TEMPORARY VENTRICULAR PACING WIRES Status: Acute (10) S/P thoracic aortic aneurysm repair: Problem details: 11/04/24 [facility]; Dr. Raudel Rhodes MADAI-STERNOTOMY, AORTIC VALVE REPLACEMENT WITH 25MM INSPIRIS, ASCENDING AORTIC ANEURYSM REPAIR WITH 28MM STRAIGHT GELWEAVE GRAFT, PLACEMENT OF TEMPORARY VENTRICULAR PACING WIRES Status: Acute (11) Chronic systolic CHF (congestive heart failure): Problem details: -stable, EF Normal -CAD noted to be asymptomatic; on CTA only -on injectable Repathka Status: Chronic (12) Spinal stenosis: Status: Acute Plan - Complete 23 hour perioperative antibiotics. - PT/OT consult for education and assistance. - Social work consult for discharge planning - Prescribed analgesics as needed - DVT prophylaxis: Continue apixaban restarting 02/17/2025, walking, and SCDs - hip bandage corrected, applied large Tegaderm over this region for further support. - Anticipation is for discharge to home with family today 02/17/2025 if the patient remains medically stable, pain is controlled, and they are safe with mobilization.
--- NOTE | 2025-02-17 10:51 | PC.NURSE ---
Nursing Care Hours: [id number] Pt this shift calm and cooperative, alert and oriented. Discussed pt hesitancy of taking the full 10mg of oxycodone and pt concerned about constipation. Branch Account Executive and pt discussed stool softeners, increase water and fiber intake, and ambulation. Pt understandable and agreeable and accepted 10mg prior and post therapies without issue. IV removed for discharge. Instructions for discharge went over with pt and pt spouse. All questions and concerns addressed. Pt wheeled out to vehicle in stable condition.
== END 2025-02-17 10:40 | disposition home or self-care (01) ==
LOC: OR 10:20 → MEDSURG 10:20
PROVIDERS: PCP Surgery; Visit Provider Orthopaedic Surgery Sports Medicine
PROC: (CPT 27130; principal; 2025-02-16 11:45)
PROC: (CPT 27130; 2025-02-16 11:45)
DX: M16.12 Unilateral primary osteoarthritis, left hip (principal); D17.24 Benign lipomatous neoplasm of skin and subcutaneous tissue of left leg; G89.18 Other acute postprocedural pain; I48.91 Unspecified atrial fibrillation; I11.0 Hypertensive heart disease with heart failure; I50.22 Chronic systolic (congestive) heart failure; Z79.01 Long term (current) use of anticoagulants; Z95.4 Presence of other heart-valve replacement
CPT/HCPCS: 27130; 27339; 01214; 36415; 64450; 73501; 76942; 86850; 86900; 86901; 97162; 97165; 97530; 97535; A9270; C1776; J0690; J1100; J1171; J2250; J2371; J2405; J2704; J2710; J2795; J3010; J3475; J3490; J7120

== ENCOUNTER 2025-02-18 20:53 | Observation (INO) | payer MEDICARE, OTHER, SELFPAY ==
--- OUTSIDE RECORDS SUMMARY | 2025-02-18 20:55 | XMS_ITS | Clinical Summary ---
Author Organization [employer] Address [address] [address] Care Team Providers Care Diabetes Specialist Name Role Phone Adrien Hernandez MD Primary Care Provider [phone] Source Comments You are receiving this document [...] for each transition of care or referral. [employer] Allergies No known active allergies Medications * [...] - 1-dose 75+ series) 2022 COVID-19 Vaccine (3 - 2023- season) 2024 10/04/2020, 09/13/2020 Influenza Vaccine (#1) 2025 0, 03/26/2019, 04/13/2018, Additional history exists DTaP/Tdap/Td Vaccine [...] this topic Insurance MEDICARE MANAGED CARE MEDICA [employer] Care Teams Diabetes Specialist Relationship Specialty Start Date End Date Adrien Hernandez MD [address] [place] [address] PCP - General Family Practice 03/04/18
--- OUTSIDE RECORDS SUMMARY | 2025-02-18 20:55 | XMS_ITS | Clinical Summary ---
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 Gender Identity Not on file Sexual Orientation [...] (once per calendar year) 2024 INFLUENZA VACCINE (#1) 2025 , 05/14/2021, 04/06/2020, Additional history exists DIABETES SCREENING 11/12/2025 11/12/2022, 0 11/12/2022, 04/25/2020, Additional history exists DTAP/TDAP/TD VACCINE (5 - Td or Tdap) 01/15/2030 01/16/2020, 02/19/2013, 10/31/2006, Additional history exists PNEUMOCOCCAL VACCINE 50+ YEARS Completed 06/26/2015, 06/11/2012 ZOSTER VACCINE Completed 08/03/2019, 05/07, 08/02/2008 HPV VACCINE (No Doses Required) Completed MENINGITIS VACCINE Aged Out No longer eligible based on patient's age to complete this topic Medical Devices Implanted Type Area Floor Coverings Installer Device Identifier Shelf Expiration Date Model / Serial / Lot Graft Bone Infuse Bmp [id number] Implanted:Qt y: 1 on 04/28/2017 by Bonnie Child MD at [facility] Bone/Tissue /Biologic Right: Ankle [employer]-DANEK 09/03/2018 [id number] / [id number] / [id number] G Graft Fascia Sepideh Medium - [id number] Implanted:Qt y: 1 on 09/19/2021 by Dianna Charlton MD at [facility] Bone/Tissue /Biologic Left: Thumb MUSCULOSKELETAL BAEZA 03/26/2024 [id number] / [id number] / Graft Bone Head Femoral 44mm 830016 - [id number] Implanted:Qt y: 1 on 11/11/2022 by Bonnie Child MD at [facility] Bone/Tissue /Biologic Right: Ankle MUSCULOSKELETAL BAEZA 05/04/2026 [id number] / [id number] / Imp Scr Arthrex Blue Locking 3.5x18mm Ar-8935l-18 Implanted:Qt y: 3 on 02/03/2017 by Bonnie Child MD at [facility] Metallic Hardware/An chor Left: Foot ARTHREX AR-8935L- 18 / / AUTOCLAVE D FEBRUARY 03 2017 LOAD 42/03 Imp Scr Arthrex Can 4.0x20mm Ar-8940-20 Implanted:Qt y: 1 on 02/03/2017 by Bonnie Child MD at [facility] Metallic Hardware/An chor Left: Foot ARTHREX AR-8940-2 0 / / AUTOCLAVE D FEBRUARY 03 2017 LOAD 42/03 Imp Plate Arthrex Lapidus [id number] Implanted:Qt y: 1 on 02/03/2017 by Bonnie Child MD at [facility] Metallic Hardware/An chor Left: Foot ARTHREX AR-8941 / / AUTOCLAVE D FEBRUARY 03 2017 LOAD 42/03 Imp Staple Mmi Easyclip Si Forefoot [id number] Krf96-65-23 - [id number] Implanted:Qt y: 1 on 09/19/2021 by Dianna Charlton MD at [facility] Metallic Hardware/An chor Left: Thumb [employer] INC 07/06/2025 YNO64-70- 13 / / [id number] Imp Staple Mmi Easyclip Si Forefoot [id number] Pyu93-94-88 - [id number] Implanted:Qt y: 1 on 09/19/2021 by Dianna Charlton MD at [facility] Metallic Hardware/An chor Left: Thumb [employer] INC 04/05/2025 AVX26-63- 13 / / [id number] Nail 12mm 150mm Ankl Rt T2 Im Lck Ti Strl Arthds - [id number] Implanted:Qt y: 1 on 11/11/2022 by Bonnie Child MD at [facility] Metallic Hardware/An chor Right: Ankle [employer] [id number] 02/03/2027 2228-5253 S / / [id number] Imp Scr Strk Lock 5.0x40mm Ft 1896-5040s - [id number] Implanted:Qt y: 1 on 11/11/2022 by Bonnie Child MD at [facility] Metallic Hardware/An chor Right: Ankle [employer] [id number] 05/06/2027 5571-6504 S / / [id number] Imp Scr Strk Lock 5.0x40mm Ft 1896-5040s - [id number] Implanted:Qt y: 1 on 11/11/2022 by Bonnie Child MD at [facility] Metallic Hardware/An chor Right: Ankle [employer] [id number] 02/03/2027 9563-8436 S / / [id number] Imp Scr Strk Lock 5.0x32.5mm Ft 1896-5032s - [id number] Implanted:Qt y: 1 on 11/11/2022 by Bonnie Child MD at [facility] Metallic Hardware/An chor Right: Ankle [employer] [id number] 06/05/2027 7267-9443 S / / [id number] Imp Scr Strk Lock 5.0x85mm Ft 1896-5085s - [id number] Implanted:Qt y: 1 on 11/11/2022 by Bonnie Child MD at [facility] Metallic Hardware/An chor Right: Ankle [employer] [id number] 03/06/2027 3213-4835 S / / [id number] Imp End Cap Strk T2 Ft Spnial Scr 1826-2s - [id number] Implanted:Qt y: 1 on 11/11/2022 by Bonnie Child MD at [facility] Metallic Hardware/An chor Right: Ankle [employer] [id number] 03/06/2027 S / / [id number] Imp Insert Tornier Tibial Ankle Size 3x9mm Lt [id number] Implanted:Qt y: 1 on 02/03/2017 by Bonnie Child MD at [facility] Total Joint Component/I nsert Left: Ankle [employer] INC 05/03/2020 [id number] / [id number] / Imp Insert Tornier Tibial Ankle Base Size 3 [id number] Implanted:Qt y: 1 on 02/03/2017 by Bonnie Child MD at [facility] Total Joint Component/I nsert Left: Ankle [employer] INC 02/08/2021 [id number] / [id number] / Imp Comp Tornier Talar Ankle Size 3 Lt [id number] Implanted:Qt y: 1 on 02/03/2017 by Bonnie Child MD at [facility] Total Joint Component/I nsert Left: Ankle [employer]OR[employer] INC 09/03/2020 [id number] / [id number] / Imp Wire Nitin 0.045x4 - S7. Implanted:Qt y: 2 on 09/19/2021 by Dianna Charlton MD at [facility] Wire Left: Thumb G SOURCE 78. / 78.202 / [id number] Imp Wire Nitin 0.062x4 - S7. Implanted:Qt y: 2 on 09/19/2021 by Dianna Charlton MD at [facility] Wire Left: Thumb G SOURCE 78.203 / 78.203 / [id number] Bme Elite [id number] One Nitinol Implant For Use With Dk-300 Drill Bit Kit Implanted:Qt y: 1 on 02/03/2017 by Bonnie Child MD at [facility] Left: Foot 06/05/2021 [id number]-2020S2 / / Graft Bone Infuse Bmp Sm [id number] Implanted:Qt y: 1 on 04/24/2020 by Bonnie Child MD at [facility] Right: Ankle [employer]ANEK 03/06/2022 [id number] / / [id number] Graft Bone Infuse Bmp Lg [id number] - [id number] Implanted:Qt y: 1 on 11/11/2022 by Bonnie Child MD at [facility] Right: Ankle [employer] 07/07/2024 [id number] / / [id number] Y T2 3mm X 285mm K-Wire Implanted:Qt y: 1 on 11/11/2022 by Bonnie Child MD at [facility] Right: Ankle [id number] / / Explanted Type Area Floor Coverings Installer Device Identifier Shelf Expiration Date Model / Serial / Lot Imp Insert Tornier Tibial Ankle Base Size 3 [id number] Implanted:Qty: 1 on 04/28/2017 by Bonnie Child MD at [facility] Explanted:Qty: 1 on 04/24/2020 by Bonnie Child MD at [facility] Total Joint Component /Insert Right: Ankle [employer] INC 02/14/2021 [id number] / [id number] / Imp Insert Tornier Tibial Ankle Size 3x11mm Rt [id number] Implanted:Qty: 1 on 04/28/2017 by Bonnie Child MD at [facility] Explanted:Qty: 1 on 04/24/2020 by Bonnie Child MD at [facility] Total Joint Component /Insert Right: Ankle TORNIER INC 07/06/2019 NVK598 / [id number] / Agility Total Ankle Components X3 (Discarded) Explanted:Qty: 1 on 04/28/2017 by Bonnie Child MD at [facility] Right: Ankle Kimberly Talaris Xt Size 3 Right Talar Part Short Peg Implanted:Qty: 1 on 04/28/2017 by Bonnie Child MD at [facility] Explanted:Qty: 1 on 04/24/2020 by Bonnie Child MD at [facility] Right: Ankle 04/17/2020 BTQ848 / [id number] / Imp Tibial Tray, Xl, Size 3 Implanted:Qty: 1 on 04/24/2020 by Bonnie Child MD at [facility] Explanted:Qty: 1 on 11/11/2022 by Bonnie Child MD at [facility] Right: Ankle [employer] 03/11/2023 [id number] / / [id number] Imp Kimberly Talaris Tibial Insert Size 3 Right Implanted:Qty: 1 on 04/24/2020 by Bonnie Child MD at [facility] Explanted:Qty: 1 on 11/11/2022 by Bonnie Child MD at [facility] Right: Ankle TORNIER 06/22/2020 [id number] / [id number] / Imp Kimberly Talaris Xt Talar Part Short Peg Size 3 Right Implanted:Qty: 1 on 04/24/2020 by Bonnie Child MD at [facility] Explanted:Qty: 1 on 11/11/2022 by Bonnie Child MD at [facility] Right: Ankle TORNIER 06/14/2021 [id number] / [id number] / Procedures Procedure Name Priority Date/Time Associated [...] BEAKER POCT Final Re sult LABORATORY POC [facility] [address], [address] [place] [address], [facility] [phone] from Last 3 Months or Most Recently Relevant to Health Maintenance Insurance MEDICARE Dig[employer]ion Advance Directives For more information, please contact: [phone] * Full Code (Latest Code Status on [...] 4:08 PM 02/05/2017 3:35 PM Care Teams Military Logistics Specialist Relationship Specialty Start Date End Date Adrien Hernandez MD [address] [place] [address] PCP - General 01/06/17
--- OUTSIDE RECORDS SUMMARY | 2025-02-18 20:55 | XMS_ITS | Clinical Summary ---
Author Organization [facility] Address [address] [address] Phone Care Team Providers Care Rotating Field Assembler Name Role Phone Unavailable Primary Care Provider [...] 07/29/2017 04/02/2023 Overview (04/02/2023): Recently diagnosed at [facility] Paroxysmal atrial fibrillation 04/10/2017 0 04/02/2023 Thoracic [...] this topic Medical Devices Implanted Type Area Credit And Collection Manager Device Identifier Shelf Expiration Date Model / Serial / Lot Watchman Flx Closure Device N/A: Heart [id number] / NA / NA Description:1.5/3T Max Spatial Gradient: 2500 gauss/cm No coil restrictions Normal Operating Mode Max whole body CARLOS: 2W/kg; whole body 3.2W/kg Scan Duration: 2W/kg whole body average CARLOS for 60min of continuous RF (a sequence or ordt-uo-djps series/scans without breaks) [facility] MRI Department 04/13/23 Insurance [employer] MEDICARE COST PART A&B
--- OUTSIDE RECORDS SUMMARY | 2025-02-18 20:56 | XMS_ITS | Clinical Summary ---
Author Organization [employer] [facility] Address [address] [place] [address] Care Team Providers Care Sales Project Manager Name Role Phone Adrien Hernandez MD Primary Care Provider [phone] Allergies Active Allergy Reactions Criticality Noted Date Comments Atorvastatin Myalgia 09/18/2015 Muscle pains with atorvastatin Rosuvastatin Nausea Only 11/09/2015 Statin intolerance. Lisinopril Cough 11/09/2015 Naproxen Rash,Nausea Only 08/12/2024 Medications artificial tears, peg 400-propylene glycol, (Systane Hydration PF) 0.4-0.3 % ophthalmic dropperette Place 1-2 Drops into both eyes two times daily. Active Xyosted 75 mg/0.5 mL atInIndications:Lo w testosterone INJECT 75MG SUBCUTANEOUS WEEKLY 12 mL 03/07/20 22 Active evolocumab (Repatha SureClick) 140 mg/mL subcutaneous pen injectorIndication s:Hyperlipidemia, unspecified hyperlipidemia type Inject 1 mL (140 mg) subcutaneous every 2 weeks. Inject into abdomen, thigh, or upper arms; rotate injection sites 6 mL 2 04/06/20 24 Active omeprazole (PRILOSEC) 40 mg Delayed-Release capsuleIndications :Gastric reflux Take 1 Capsule (40 mg) by mouth once daily before a meal. 90 Capsule 3 06/15/20 Active clobetasol (TEMOVATE) 0.05 % cream APPLY TWICE DAILY TO AFFECTED AREAS ON BODY FOR 2 WEEKS, TAKE 2 WEEKS OFF. REPEAT NEEDED. 05/10/20 Active eszopiclone 1 mg tablet Take 2 mg by mouth at bedtime. Active acetaminophen (Tylenol Extra Strength) 500 mg tabletIndications: S/P AVR (aortic valve replacement) Take 2 Tablets (1,000 mg) by mouth every 6 hours if needed for Pain. Max acetaminophen dose: 4000mg in 24 hrs. 11/12/19 Active amLODIPine 5 mg tabletIndications: HTN (hypertension),Chr onic atrial fibrillation (HC) Take 1 Tablet (5 mg) by mouth once daily. 11/12/19 25 Active apixaban 5 mg tabletIndications: prevent thromboembolism in chronic atrial fibrillation Take 1 Tablet (5 mg) by mouth two times daily. 12/30/19 Active celecoxib (CELEBREX) 100 mg capsule Take 100 mg by mouth two times daily with meals. 07/17/19 Active furosemide 20 mg tabletIndications: S/P ablation of atrial flutter Take 1 Tablet (20 mg) by mouth once daily if needed (Weight gain/fluid retention). 5 Tablet 5 9:18 AM CDT 12/30/19 025 Disconti nued(*Hipolito cuevas states no longer taking) Active Problems Patient Care Coordination No te Formatting of this note migh t be different from the original. HF/Structural/Prevention Research Eligibility Review Date: 06/22/19 Upcoming Visit Location: [facility] Age: 74 y.o. Insurance: Medicare EF: 74 LVID: Valve/Imaging: Mild MR, trace TR, mild /no AR Cardiac Devices: Comments: HF: DNQ Structural: Tendyne Evangeline: No d/t mild MR Prevention: DNQ Problem [...] lung 07/29/2017 Overview (07/29/2017): Recently diagnosed at [place] Paroxysmal atrial fibrillation 04/10/2017 Thoracic aortic aneurysm [...] Encounters Date Type Department Care Team Description 02/17/2025 Lab Requisition [facility] [phone] Catracho Tavera MD 02/16/2025 Orders Only [facility] Scanner 1 scan: (1-Ord) [facility], HIP LT 1V, 02/16/2025 02/07/2025 9:50 AM CDT - 02/07/2025 11:59 PM CDT Hospital Encounter [facility] [address] [facility] [place] [address] 02/06/2025 Travel 02/04/2025 10:00 AM CDT - 02/04/2025 11:59 PM CDT Hospital Encounter [facility] [address] [facility] [place] [address] 02/04/2025 Refill [facility] [address] [facility] [address] Adrien Hernandez MD Refill Request (Xyosted 75mg/0.5ml auto inj 4x0.5ml) 02/04/2025 Travel 01/31/2025 9:40 AM CDT - 01/31/2025 11:59 PM CDT Hospital Encounter [facility] [address] [facility] [place] [address] 01/31/2025 Travel 01/28/2025 9:38 AM CDT - 01/28/2025 11:59 PM CDT Hospital Encounter [facility] [address] [facility] [place] [address] 01/28/2025 Travel 01/26/2025 9:40 AM CDT - 01/26/2025 11:59 PM CDT Hospital Encounter [facility] [address] [facility] [place] [address] 01/26/2025 Refill [facility] [address] [facility] [address] [place] [address] Anton Goodwin MD Refill Request (Amiodarone) 01/26/2025 Travel 01/25/2025 10:15 AM CDT Ancillary Procedure [facility] [address] [facility] [address] 01/25/2025 8:50 AM CDT Office Visit [facility] [address] [facility] [address] Adrien Hernandez MD Preoperative Exam (Total left hip replacement on 02/16/25 Dr. Humphries at [facility]) 01/24/2025 9:47 AM CDT - 01/24/2025 11:59 PM CDT Hospital Encounter [facility] [address] [address] 01/24/2025 Travel 01/21/2025 9:45 AM CDT - 01/21/2025 11:59 PM CDT Hospital Encounter [facility] [address] [address] 01/20/2025 Travel 01/19/2025 9:44 AM CDT - 01/19/2025 11:59 PM CDT Hospital Encounter [facility] [address] [address] 01/19/2025 Travel 01/17/2025 9:41 AM CDT - 01/17/2025 11:59 PM CDT Hospital Encounter [facility] [address] [address] 01/17/2025 Travel 01/14/2025 9:40 AM CDT - 01/14/2025 11:59 PM CDT Hospital Encounter [facility] [address] [address] 01/14/2025 Travel 01/13/2025 Telephone [facility] [address] [address] Ti Siddiqui MD Questions 01/03/2025 9:42 AM CDT - 01/03/2025 11:59 PM CDT Hospital Encounter [facility] [address] [address] 01/03/2025 Travel 12/31/2024 9:41 AM CDT - 12/31/2024 11:59 PM CDT Hospital Encounter [facility] [address] [address] 12/31/2024 Travel 12/28/2024 8:16 AM CDT Anesthesia Event [facility] [address] [place] [address] Enrique Phillips MD Overgaard, Shawn M, CRNA 12/28/2024 6:10 AM CDT - 12/29/2024 10:55 AM CDT Hospital Encounter [facility] [address] [place] [address] Ti Siddiqui MD Anderson, Rebecca Faye, MD Paroxysmal atrial fibrillation (HC) (Primary Dx); S/P ablation of atrial flutter; Atrial fibrillation, unspecified type (HC) Discharge Disposition: Home Self Care 12/27/2024 9:39 AM CDT - 12/27/2024 11:59 PM CDT Hospital Encounter [address] [address] 12/27/2024 Travel 12/25/2024 Telephone [facility] [address] [address] Ti Siddiqui MD Concerns (A-fib) 12/24/2024 9:47 AM CDT - 12/24/2024 11:59 PM CDT Hospital Encounter [address] [address] 12/24/2024 Nurse Triage [facility] [address] [address] Stefanie Avilez RN Atrial Fibrillation 12/24/2024 Travel 12/22/2024 9:39 AM CDT - 12/22/2024 11:59 PM CDT Hospital Encounter [address] [address] 12/22/2024 Travel 12/21/2024 Telephone [facility] [address] [address] Anton Goodwin MD Fast Heartbeat 12/20/2024 9:42 AM CDT - 12/20/2024 11:59 PM CDT Hospital Encounter [facility] [address] [place] [address] 12/20/2024 Travel 12/17/2024 9:50 AM CDT - 12/17/2024 11:59 PM CDT Hospital Encounter [facility] [address] [place] [address] 12/17/2024 Travel 12/15/2024 12:16 PM CDT Anesthesia Event [facility] [address] [place] [address] Edna Cardozo MD Geniesse, Brian Christopher, RAYMOND 12/15/2024 10:18 AM CDT - 12/15/2024 1:40 PM CDT Hospital Encounter [facility] [address] [place] [address] Anton Goodwin MD Presence of Watchman left atrial appendage closure device; Paroxysmal atrial fibrillation (HC); Atrial fibrillation, unspecified type (HC); Sinus node dysfunction (HC) Discharge Disposition: Home Self Care 12/15/2024 Travel 12/13/2024 8:10 AM CDT - 12/13/2024 11:59 PM CDT Hospital Encounter [facility] [address] [place] [address] Ketty Fuentes PA S/P AVR 12/13/2024 Telephone [facility] [address] [facility] [address] [place] [phone] Ti Siddiqui MD Questions 12/13/2024 Travel 12/12/2024 Telephone [facility] [address] [facility] [address] [place] [phone] Anton Goodwin MD Questions 12/10/2024 9:43 AM CDT - 12/10/2024 11:59 PM CDT Hospital Encounter [facility] [address] [place] [address] 12/10/2024 Travel 12/08/2024 9:43 AM CDT - 12/08/2024 11:59 PM CDT Hospital Encounter [facility] [address] [place] [address] 12/08/2024 Travel 12/06/2024 8:42 AM CDT - 12/06/2024 11:59 PM CDT Hospital Encounter [facility] 200 [facility] [place] [address] Ketty Fuentes PA S/P AVR 12/06/2024 Travel 12/01/2024 8:30 AM CDT Office Visit [facility] [address] [place] [address] Anton Goodwin MD Follow Up (F/U for PAF) 11/30/2024 Travel 11/30/2024 Telephone [facility] [address] [facility] [address] [place] [address] Ti Siddiqui MD Atrial Fibrillation (AF post AVR.) 11/18/2024 10:15 AM CDT Office Visit [facility] [address] [place] [address] Adrien Hernandez MD Post-op (Light headed and dizzy) 11/18/2024 Travel 11/18/2024 Patient Outreach [facility] [address] [place] [address] Cheyenne Cooper RN Primary RN Care Management; Hospital F/U (LACE 61) from Last 3 Months Immunizations Immunization Administration [...] or yelled at (see row info)? No 12/28/2024 Interpersonal Safety Abuse 12 - 18 Not on file 12/28/2024 Interpersonal Safety Ambulatory Vulnerability No t on file 12/28/2024 Utilities Answer Date Recorded Do you have trouble paying f or utilities (for example, heat, electricity, water, phone)? 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 Not on file Not on file Not on file Obstetrics History Last Filed Vital Signs Vital Sign Reading Time Taken Comments Blood Pressure 128/83 01/25/2025 8:50 AM CDT Pulse 85 01/25/2025 8:50 AM CDT Temperature 36.6 C (97.8 F) 12/29/2024 5:46 AM CDT Respiratory Rate 16 12/29/2024 5:46 AM CDT Oxygen Saturation 99% 01/25/2025 8:50 AM CDT Inhaled Oxygen Concentration - - Weight 87.9 kg (193 lb 11.2 oz) 01/25/2025 8:50 AM CDT Height 182.9 cm (6') 12/28/2024 6:42 AM CDT Body Mass Index 26.27 12/28/2024 6:42 AM CDT Plan of Treatment Upcoming Encounters Date Type Department Care Team (Late st Contact Info) Description 02/21/2025 10:00 AM CDT Appointment [address] [address] 02/23/2025 10:00 AM CDT Appointment [facility] [address] [facility] [place] [address] 02/25/2025 10:00 AM CDT Appointment [facility] [address] [address] 06/23/2025 11:00 AM 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 [facility] [address] [place] [address] Romelia Ruelas PA [address] [place], [place] [phone] Health Maintenance Due Date Last Done Comments Hepatitis B series for 19+ ( 2 of 3 - 19+ 3-dose series) 10/11/2011 09/13/2011, 08/30/2011, 08/23/2011 RSV vaccine for adults or (1 - 1-dose 75+ series) 2022 COVID-19 vaccine series (2023- season) 2024 05/16/2022, 12/07/2021, 05/07/2021, Additional history exists Influenza Vaccine (#1) 2025 , 04/14/2023, 05/16/2022, Additional history exists Medicare Wellness for age [...] for age 50+ Completed 08/03/2019, 05/24/2019, 08/02/2008 Medical Devices Implanted Type Area Workforce Planner Device Identifier Shelf Expiration Date Model / Serial / Lot Amnio Fix 2.0x12.0cm Implanted:Qty: 1 on 10/25/2014 at [facility] [id number] / / [id number] Description:AMNIO FIX 2.0X12 .0CM Valve Aortic 25mm Inspirus Resilia Tissue - [id number] Implanted:Qty: 1 on 11/04/2024 by Geraldo Rhodes MD at [facility] N/A: Aortic Valve Synbiota [id number] 07/05/2029 [id number] / [id number] / Description:Aortic valve-MARK VE AORTIC 25MM INSPIRUS RESILIA TISSUE by [employer], Ref:[id number], SN:[id number], Exp:07-05-2029, implanted by Dr. Rhodes on 11-04-2024 Graft Vasc [id number] Vascutek Gelweave Stra - [id number] Implanted:Qty: 1 on 11/04/2024 by Geraldo Rhodes MD at [facility] N/A: Aorta Package Concierge 07/06/2027 [id number] / [id number] / Description:Aorta-GRAFT VASC [id number] VASCUTEK GELWEAVE STRAIGHT by [employer], Ref:[id number]. SN:[id number], Exp:07-06-2027, implanted by Dr. Rhodes on 11-04-2024 Procedures Procedure Name Priority Date/Time Associated Diagnosis Comments PATH TISSUE EXAM Routine 02/16/2025 12:5 0 PM CDT SCAN-RADIOLOGY REPORT 02/16/2025 12:00 AM CDT SCAN-CARDIAC REHABILITATION 02/07/2025 9:55 AM CDT SCAN-CARDIAC REHABILITATION 02/04/2025 9:53 AM CDT SCAN-CARDIAC REHABILITATION 01/31/2025 9:46 AM CDT SCAN-CARDIAC REHABILITATION 01/28/2025 9:45 AM CDT SCAN-CARDIAC REHABILITATION 01/26/2025 9:46 AM CDT XR SHOULDER 3 VIEWS LEFT Routine 01/25/2025 10:03 AM CDT Acute pain of left shoulder CBC W PLT NO DIFF Routine 01/25/2025 9:4 9 AM CDT S/P AVR (aortic valve replacement) HEPATIC FUNCTION PANEL Routine 9:49 AM CDT Elevated liver enzymes BASIC METABOLIC PANEL Routine 01/25/2025 9:49 AM CDT Elevated liver enzymes PROTIME-INR Routine 01/25/2025 9:48 AM CDT Chronic atrial fibrillation (HC) SCAN-CARDIAC REHABILITATION 01/24/2025 9:52 AM CDT SCAN-CARDIAC REHABILITATION 01/21/2025 9:51 AM CDT SCAN-CARDIAC REHABILITATION 01/19/2025 9:51 AM CDT SCAN-CARDIAC REHABILITATION 01/17/2025 9:47 AM CDT SCAN-CARDIAC REHABILITATION 01/14/2025 9:46 AM CDT SCAN-CARDIAC REHABILITATION 01/03/2025 9:52 AM CDT SCAN-CARDIAC REHABILITATION 12/31/2024 9:55 AM CDT EKG 12 LEAD AINSLEY 12/29/2024 9:47 AM CDT SCAN-CARDIAC STRIP 12/29/2024 7: 00 AM CDT SCAN-CARDIAC STRIP 12/29/2024 12 :31 AM CDT SCAN-CARDIAC STRIP 12/28/2024 12 :50 PM CDT HCHG ACTIVATED CLOTTING TM CV Timed 12/28/2024 10:55 AM CDT CV PROCEDURE TO BE PERFORMED Routine 12/28/2024 10:37 AM CDT HCHG ACTIVATED CLOTTING TM CV Timed 12/28/2024 10:15 AM CDT HCH[facility] ACTIVATED CLOTTING TM CV Timed 12/28/2024 9:44 AM CDT HCH[facility] ACTIVATED CLOTTING TM CV Timed 12/28/2024 9:24 AM CDT EP STUDY /ABLATION Routine 12/28/2024 9: 00 AM CDT ENDOTRACHEAL TUBE Routine 12/28/2024 8:4 5 AM CDT EKG 12 LEAD Preop 12/28/2024 7:05 AM CDT EXTRA TUBE GOLD/SST Today 12/28/2024 6 :41 AM CDT CBC W PLT NO DIFF Preop 12/28/2024 6:4 1 AM CDT BASIC METABOLIC PANEL Preop 12/28/2024 6:41 AM CDT SCAN-CARDIAC REHABILITATION 12/27/2024 9:47 AM CDT SCAN-CARDIAC REHABILITATION 12/24/2024 9:52 AM CDT SCAN-CARDIAC REHABILITATION 12/22/2024 9:50 AM CDT SCAN-CARDIAC REHABILITATION 12/20/2024 9:54 AM CDT SCAN-CARDIAC REHABILITATION 12/17/2024 9:55 AM CDT EKG 12 LEAD Post Op 12/15/2024 12:27 PM CDT EP CARDIOVERSION Routine 12/15/2024 12:2 6 PM CDT ISTAT CHEM 8 Timed 12/15/2024 11:34 AM CDT EKG 12 LEAD Preop 12/15/2024 11:18 AM CDT SCAN-CARDIAC STRIP 12/15/2024 12 :[address] CARDIAC MORPHOLOGY W CV [...] 9:22 AM CDT Chronic atrial fibrillation (HC) NE READING EKG - NO CHARGE, COMP ONLY Routine 11/19/2024 9:21 AM CDT Chronic atrial fibrillation (HC) HEMOGLOBIN Routine 11/18/2024 11:31 AM CDT Anemia, unspecified type ANTI HCV Routine 05/02/2015 7:09 AM CDT Need for hepatitis C screening test from Last 3 Months or Most Recently Relevant to Health Maintenance Results * SCAN-RADIOLOGY REPORT (02/16/2025 12:00 AM CDT) Anatomical Region Laterality Modality Other us Scanner OTHER Final Result * SCAN-CARDIAC REHABILITATION (02/07/2025 9:55 AM CDT) Only the most recent of20 resultswithin the time period is included. us Scanner OTHER Final Result * XR SHOULDER 3 VIEWS LEFT (01/25/2025 10:03 AM CDT) Anatomical Region Laterality Modality SHOULDERS, SHOULDER L Computed R adiography 01/26/2025 3:40 PM CDT Narrative 01/26/2025 3:40 PM CDT For Patients: As a result of the Century Cures Act, medical imaging exams and procedure reports are released immediately into your electronic medical record. You may view this report before your referring provider. If you have questions, please contact your health care provider. INDICATION: Acute pain of left shoulder TECHNIQUE: Shoulder radiograph 3 views left COMPARISON: None FINDINGS: Bone: No acute fractures or aggressive bone lesions are identified. Cephalad migration of the humeral head is noted, likely due to rotator cuff atrophy and/or tear. Joint: Moderate osteoarthritis of the glenohumeral joint is noted. Widening of the AC joint is noted which can be seen with prior surgical resection of the distal clavicle, trauma, or metabolic bone disease. Soft tissue: Unremarkable. The visualized hemithorax is unremarkable in appearance. No radiopaque foreign bodies are seen. IMPRESSIONS: 1. No acute osseous injuries or abnormalities are noted. 2. Cephalad migration of the humeral head is noted, likely due to rotator cuff atrophy and/or tear. Dictated by Yuval Sen MD @ 01/26/2025 3:40:24 PM Dictated by: Yuval Sen MD @ 01/26/2025 15:40:28 (Electronically Signed) Procedure Note Yuval Sen MD - 01/26/2025 For Patients: As a result of the Cures Act, medical imagingexams and procedure reports are released immediately into your electronicmedical record. You may view this report before your referring provider.If you have questions, please contact your health care provider. INDICATION: Acute pain of left shoulder TECHNIQUE: Shoulder radiograph 3 views left COMPARISON: None FINDINGS: Bone: No acute fractures or aggressive bone lesions are identified.Cephalad migration of the humeral head is noted, likely due to rotatorcuff atrophy and/or tear. Joint: Moderate osteoarthritis of the glenohumeral joint is noted.Widening of the AC joint is noted which can be seen with prior surgicalresection of the distal clavicle, trauma, or metabolic bone disease. Soft tissue: Unremarkable. The visualized hemithorax is unremarkable inappearance. No radiopaque foreign bodies are seen. IMPRESSIONS: 1. No acute osseous injuries or abnormalities are noted. 2. Cephalad migration of the humeral head is noted, likely due to rotatorcuff atrophy and/or tear. Dictated by Yuval Sen MD @ 01/26/2025 3:40:24 PM Dictated by: Yuval Sen MD @ 01/26/2025 15:40:28 (Electronically Signed) us Adrien Hernandez MD GENERAL IMAGING Final Resu lt * (ABNORMAL) CBC W PLT NO DIFF (01/25/2025 9:49 AM CDT) Only the most recent of2 resultswithin the time period is included. WHITE BLOOD CELL COUNT 5.5 3.8 - 10.8 Thousand/u L [facility] RED BLOOD CELL COUNT 4.49 4.20 - 5.80 Million/uL [facility] HEMOGLOBIN 12.0(L) 13.2 - 17.1 g/dL [facility] HEMATOCRIT 40.8 38.5 - 50.0 % [facility] MCV 90.9 80.0 - 100.0 fL [facility] MCH 26.7(L) 27.0 - 33.0 pg [facility] MCHC 29.4(L) 32.0 - 36.0 g/dL [facility] Comment: For adults, a slight decrease in the calculated MCHC value (in the range of 30 to 32 g/dL) is most likely not clinically significant; however, it should be interpreted with caution in correlation with other red cell parameters and the patient's clinical condition. RDW 15.7(H) 11.0 - 15.0 % [facility] PLATELET COUNT 323 140 - 400 Thousand/u L [facility] MPV 9.2 7.5 - 12.5 fL [facility] Blood BLOOD SPECIMEN / Unknown 01/25/2025 9:49 AM CDT 01/25/2025 9:49 AM CDT us Adrien Hernandez MD HEMATOLOGY Final Resu lt [facility] [address] [place] [address], [facility] [address] [place] [address] * HEPATIC FUNCTION PANEL (01/25/2025 9:49 AM CDT) [facility] PROTEIN, TOTAL 7.0 6.1 - 8.1 g/dL [facility] ALBUMIN 3.8 3.6 - 5.1 g/dL [facility] GLOBULIN 3.2 1.9 - 3.7 g/dL (calc) [facility] ALBUMIN/GLOBULIN RATIO 1.2 1.0 - 2.5 (calc) [facility] BILIRUBIN, TOTAL 0.3 0.2 - 1.2 mg/dL [facility] BILIRUBIN, DIRECT 0.1 < OR = 0.2 mg/dL [facility] BILIRUBIN, INDIRECT 0.2 0.2 - 1.2 mg/dL (calc) [facility] ALKALINE PHOSPHATASE 111 35 - 144 U/L [facility] AST 18 10 - 35 U/L [facility] ALT 15 9 - 46 U/L [facility] Blood BLOOD SPECIMEN / Unknown 01/25/2025 9:49 AM CDT 01/25/2025 9:49 AM CDT us Adrien Hernandez MD CHEMISTRY Final Resu lt Performing Organization Address City/State/[facility] Co de Phone Number [facility] [address] [place] [address], [facility] [address] * (ABNORMAL) BASIC METABOLIC PANEL (01/25/2025 9:49 AM CDT) Only the most recent of2 resultswithin the time period is included. GLUCOSE 110(H) 65 - 99 mg/dL [facility] Comment: Fasting reference interval For someone without known diabetes, a glucose value between 100 and 125 mg/dL is consistent with prediabetes and should be confirmed with a follow-up test. UREA NITROGEN (BUN) 20 7 - 25 mg/dL [facility] CREATININE 1.07 0.70 - 1.28 mg/dL [facility] EGFR 71 > OR = 60 mL/min/1. 73m2 [facility] BUN/CREATININE RATIO SEE NOTE: (calc) [facility] Comment: Not Reported: BUN and Creatinine are within reference range. SODIUM 140 135 - 146 mmol/L [facility] POTASSIUM 4.7 3.5 - 5.3 mmol/L [facility] CHLORIDE 105 98 - 110 mmol/L [facility] CARBON DIOXIDE 29 20 - 32 mmol/L [facility] ELECTROLYTE BALANCE 6(L) 7 - 17 mmol/L (calc) [facility] CALCIUM 9.7 8.6 - 10.3 mg/dL [facility] Blood BLOOD SPECIMEN / Unknown 01/25/2025 9:49 AM CDT 01/25/2025 9:49 AM CDT us Adrien Hernandez MD CHEMISTRY Final Resu lt [facility] [address] [place] [address], [facility] [address] * (ABNORMAL) PROTIME-INR (01/25/2025 9:48 AM CDT) INR 1.4(H) <1.3 01/25/2025 3:11 PM CDT [facility] PROTIME 15.7(H) 10.6 - 12.4 sec 01/25/2025 3:11 PM CDT [facility] Blood BLOOD SPECIMEN / Unknown [facility] / Unknown 01/25/2025 9:48 AM CDT 01/25/2025 9:48 AM CDT Narrative [facility] - 01/25/2025 3:11 PM CDT Therapeutic Range 2.0-3.0 for most anticoagulated [...] if the patient is on UFH. us Adrien Hernandez MD HEMATOLOGY Final Resu lt Performing Organization Address [facility]/ZIP Co de Phone Number [facility] [address] [place] [address], [place] * EKG 12 LEAD (12/29/2024 9:47 AM CDT) Only the most recent of6 resultswithin the time period is included. Pathologist [facility] Interpretation Normal sinus rhythm Nonspecific T wave abnormality QTcB >= 480 msec Abnormal ECG When compared with ECG of 28-Dec-2024 07:05, Non-specific change in ST segment in Lateral leads BEYOND NOW Ventricular Rate 82 BPM BEYOND NOW Atrial Rate 82 BPM BEYOND NOW P-R Interval 186 ms BEYOND NOW QRS Duration 96 ms BEYOND NOW QT 420 ms BEYOND NOW QTc 490 ms BEYOND NOW P Pratt 70 degrees BEYOND NOW R Pratt 29 degrees BEYOND NOW T Pratt 46 degrees BEYOND NOW 12/29/2024 9:47 AM CDT 12/29/2024 5:12 PM CDT us Linda Lebron NP EKG ORD Final Result Performing Organization Address [facility] Co de Phone Number BEYOND NOW [place], [place] * SCAN-CARDIAC STRIP (12/29/2024 7:00 AM CDT) us Scanner OTHER Final Result * SCAN-CARDIAC STRIP (12/29/2024 12:31 AM CDT) us Scanner OTHER Final Result * SCAN-CARDIAC STRIP (12/28/2024 12:50 PM CDT) us Scanner OTHER Final Result * (ABNORMAL) ACTIVATED CLOTTING TIME [id number] ACT (12/28/2024 10:55 AM CDT) Only the most recent of4 resultswithin the time period is included. Pathologist [facility] ACTIVATED CLOTTING TIME, POCT 186(H) 74 - 125 sec 12/28/2024 12:10 PM CDT [facility] Blood BLOOD SPECIMEN / Unknown 12/28/2024 10:55 AM CDT 12/28/2024 12:10 PM CDT us Ti Siddiqui MD HEMATOLOGY Final Resul t [facility] [address] [place] [address], * EP Procedure to be Performed (12/28/2024 10:37 AM CDT) Narrative Ti Siddiqui MD - 12/28/2024 10:37 AM CDT Ti Siddiqui MD 12/28/2024 10:38 AM Cardiac Electrophysiology Immediate Post Procedure Note Preoperative Diagnosis: Atrial fibrillation and flutter Procedure: successful ablation for atypical atrial flutter x 2 Findings/Conclusions: successful ablation for atypical atrial flutter Postoperative Diagnosis: Same as preoperative diagnosis Complications: None Personally monitored patient with conscious sedation during procedure: No Estimated Blood Loss: minimal Specimen: N/A Plan: Bedrest for 3 hours Likely discharge home later today Surgeon: Ti Siddiqui MD us Ti Siddiqui MD LOCKSTITCH LINING SETTER ORD Final Resul t * EP STUDY /ABLATION (12/28/2024 9:00 AM CDT) Anatomical Region Laterality Modality X-Ray Angiograph y, X-Ray Angiography 12/28/2024 9:00 AM CDT Narrative Transcriptions Ti Siddiqui MD - 01/05/2025 7:53 PM CDT [facility] Electrophysiology Procedure/Implant Report Name: Chente Rubin Event Date: 12/28/2024 [facility] ID #: [id number] Date: 1945 Gender: Male Age: 79 [facility] #: [id number] Procedure Performed By: TI SIDDIQUI ReferringPhysician: Summary / Conclusions ARRHYTHMIA * Atypical left-sided atrial flutter induced with successful ablation. CONDUCTION * The AV node conduction is normal. * The His/Purkinje system conduction is normal. POST ABLATION * Patient observed for at least 30 minutes post ablation, prior tocatheter removal. * Post ablation testing with isoproterenol infusion revealed normal basicintervals. PRESSURE LINE * A pressure transducer was placed during the procedure to monitor leftatrial pressure. DISCUSSION * ICE Catheter utilized during procedure. VASCULAR ACCESS * Using ultrasound guidance and a percutaneous technique, the rightfemoral vein was accessed. Ultrasound was used to confirm vessel patency,localizing needle into the lumen of the vessel. For safety purposes, apicture was saved for the medical record. * Using ultrasound guidance and a percutaneous technique, the left femoralvein was accessed. Ultrasound was used to confirm vessel patency,localizing needle into the lumen of the vessel. For safety purposes, apicture was saved for the medical record. Pre-Operative Diagnosis ? Atrial Fibrillation and Flutter Post-Operative Diagnosis ? Same as Pre-operative diagnosis Indications ? Same as Pre-operative diagnosis Brief Patient History Persistent atrial fibrillation -11/2014 s/p complex ablation including PVI and CTI ablation -12/2020 s/p redo PVI, roof isolation, and PVC ablation -developed increased AF burden 05/2024 -08/2024 amiodarone started -recurrent AF in the post-operative setting of AVR andascending aortic aneurysm repair -s/p successful PABLO guided DCCV on 11/10/24 -recurrent AF 11/15/24 12/01/2024 amiodarone started -12/15/2024 S/P cardioversion Presence of Watchman left atrial appendage occlusion device in 2022 -follow up cardiac CTA 10/29/2022 with no clear paridevice leakpresent, no device related thrombus - CTA 12/13/2024 no paridevice leak or device related thrombus Sinus node dysfunction Junctional bradycardia- resolved 11/11 -initial rhythm post-operatively 11/04/2024 -EKG post cardioversion 11/10 consistent with junctionalrhythm Aortic stenosis Ascending aortic aneurysm S/P AVR and ascending aortic aneurysm repair 11/04/2024 Hypertension Sarcoidosis, lung Pulmonary nodules/lesions, multiple Prostate cancer Mixed hyperlipidemia We discussed the risks, benefits, alternatives, complications, personnel,procedure details, rationale, and logistics of catheter ablation forarrhythmias including but not limited to the risk of CVA, PR, cardiacarrest, perforation, tamponade, AV block requiring pacemaker, esophagealor nerve injury, need for surgical intervention, vascular injury,bleeding, complications from anesthesia, respiratory failure, infections,and . He is agreeable to proceed. Consent & York Protocol York protocol was followed. TIME OUT conducted just prior tostarting procedure confirmed patient identity, site/side, procedure,patient position, and availability of correct equipment and implants (ifapplicable). The risks, benefits, and alternatives of the procedure were discussed withthe patient and written informed consent was obtained. Procedure Description The patient arrived to the EP laboratory in sinus rhythm. Informedconsent was affirmed and a time-out was performed with the necessaryparticipants. The patient was placed under general anesthesia. Thepatient was prepped and draped in the usual fashion and local anestheticwas infiltrated into the groin sites; sheaths were placed in the leftfemoral vein and in the right femoral vein with ultrasound guidance overguidewires. The intracardiac echo (ICE) was placed via the left femoralvein and advanced to the right atrium and a CS catheter was advanced intothe coronary sinus. The ICE demonstrated normal pulmonary vein anatomy.CTI line demonstrated persistent bidirectional block from prior ablation.Via the right femoral vein, LA instrumentation was performed with a singletransseptal puncture using a Brk needle, ICE, and fluoroscopy forguidance. Systemic anticoagulation with intravenous heparin was initiatedprior to the transseptal puncture with a target ACT of 400-450 sec. [employer] electro-anatomical mapping system was used to create geometry andvoltage of the left atrium and the pulmonary veins with the Sphere 9mapping/ablation catheter. There were two inducible atrial fluttercircuits in the left atrium along the roof and anterior wall. With PFA wewere able to terminate both arrhythmias. The applications were extended tothe roof and upper posterior wall isolating these regions. There were noother inducible atrial arrhythmias with programmed stimulation andisoproterenol. Antegrade AV conduction and HV intervals were normal. Therewas no evidence for dual AV petey physiology and no typical or atypicalechos. The procedure was terminated. Heparin was partially reversed withprotamine. Catheters and sheaths were removed and manual pressure held toattain hemostasis. The patient tolerated the procedure well, and therewere no immediate complications. Electrophysiology Study Data Basic Intervals Study State Underlying Rhythm Cycle Length NE PA AH HV QRS Pratt QRSMorphology Baseline NSR 877 166 Post Ablation NSR 990 183 Antegrade 1:1 AV Node Function Study State Pacing Site AV Node SCL 1:1 AH HV Dual AVN Physiology? AVNFast 1:1 AVN Slow 1:1 Wenkebach Cycle Length Baseline CS 400 380 Post Ablation Isuprel CS 410 400 Post Ablation Isuprel CS 350 340 Refractory Periods Study State Pacing Site Paced Cycle Length Paced Cycle ERP AVN ERP DualNode Physiology? AVN ERP (fast) AVN ERP (slow) Baseline CS 600 270 Post Ablation Isuprel CS 600 260 Study Events Atrial 600 270 Study Events Atrial 600 260 Ablation Data Atrial Flutter Energy Source Ablation Catheter Used Rhythm During Ablation # of AttemptsMax Holland Max Temp. Result Other Sphere 9 PFA NSR 69 Success Left atrial flutter was ablated. A mitral isthmus ablation line was placed. Other: Roof Comments: Total ablation time: 4 min 35 sec Catheter Use Catheter Type Catheter Description Insertion Site Intracardiac Site SheathSize Sheath Type Sheath Description Diagnostic Urban Ladder CS Catheter, Decapolar, 2-8-2, D-F Curves Left FemoralVein CS 7 Fr Standard Sidearm Ablation Sphere 9 PFA Right Femoral Vein Map/Abl 8 Fr Guide SL1 Intracardiac Echo AcuNav Diagnostic Ultrasound Catheter, 90cm GE LeftFemoral Vein HRA 9 Fr Standard Sidearm Complications ? No complications Procedure(s) Performed ? +CS/LA Catheter Pacing and Recording ? Programmed Stimulation after Drug Infusion ? 3D Mapping ? Ultrasound Site Rite Vascular Access ? SVT Ablation (AVNRT, AVRT, A Flutter, A Tach) ? Ablation of Separate Mechanism of Tachycardia ? Intracardiac Echo ? Left Heart Cath, Transseptal Puncture, Intact Septum Auxiliary Device Intracardiac Echo Used: Yes Procedure Detail Estimated Blood Loss: < 50 ml Specimen Collected: None Level of Sedation Achieved: See Anesthesia Note Total Flouro Time: 3.1 TECHNICAL TRANSLATOR Total Flouro Dose: 14 mGy Transseptal Mean LA Pressure: 6 mmHg Staff Name Role Ti Siddiqui Vest Tailor Mable Morrison RN Nurse Leslie MarroquinT Monitor Jomar PinedaT Scrub Nathan Reed Hat Forming Machine Feeder Lenora Chavez RN Nurse Medications Ordered and Administered Start Time Stop Time Medication Dose Units Route Ordered By Given By 09:03 0.25% Bupivicaine 5 mL Subcut Ti D MD Ti Siddiqui MD 09:03 1% Lidocaine Hydrochloride 5 mL Subcut MD Ti Cornejo MD 09:12 Heparin 20464 Units IV MD Mable Cornejo, ISELA 09:27 Heparin 6000 Units IV MD Lenora Cornejo RN 10:15 (New Bag) Isoproterenol (Isuprel) 3 mcg per min IV MD Mable Cornejo, ISELA 10:21 Protamine 45 Mg IV MD Mable Cornejo RN The anesthesia service monitored the patient?s conscious sedation duringthe procedure. The medications listed above were verbally ordered by me and read back tome as documented above. Refer to the hemodynamic procedure log report for additional casedetails. electronically signed on 01/05/2025 7:53:42 PM with status of Final Ti Siddiqui MD Vest Tailor [address] [place] [id number] (p) [phone](f) Ti Siddiqui MD CV IMAGING Edited Resu lt - Final * HCHG TUBE PR1 (12/28/2024 8:45 AM CDT) Narrative Abdulaziz Bui CRNA - 12/28/2024 8:45 AM CDT Abdulaziz Bui CRNA 12/28/2024 8:49 AM Procedure: ETT Patient location during procedure: OR ETT Properties Mask Ventilation: oral airway Final Technique: direct laryngoscopy Type: straight Location: oral Cuffed: yes Tube Size: 7.5 mmno Laryngoscope Blade: Lal Blade Size: 2 Cormack-Lehane Grade View: 1 Insertion Attempts: 1 Placement Verification: end tidal CO2 and symmetrical chest wall movement Assessment: pharynx clear and atraumatic Secured at: 24 Measured From: lips Difficulty: 0 (not difficult) us Abdulaziz Bui CRNA ANESTHESIA PX NOTE ORDERA BLES Final Result * EXTRA TUBE GOLD/SST (12/28/2024 6:41 AM CDT) Blood BLOOD SPECIMEN / Unknown Non-Lab Venipuncture / Unknown 12/28/2024 6:41 AM CDT 12/28/2024 6:54 AM CDT Ti Siddiqui MD LABORATORY [facility]ul [facility] [address] [place] [address], * EP CARDIOVERSION (12/15/2024 12:26 PM CDT) Anatomical Region Laterality Modality X-Ray Angiograph y Narrative 12/15/2024 12:26 PM CDT Gianni Zartae MD 12/15/2024 12:36 PM [facility] Cardiac Electrophysiology Procedure Note DOS: 12/15/2024 Brief History: Chente Rubin is a pleasant 79 y.o. with history of atrial arrhythmias who now presents to [facility] N[facility] since midnight for direct current cardioversion. On ASA 81 mg daily S/P Watchman. Procedure Description: Time out was called. Brief general anesthesia by anesthesia service. Cardioversion patches were placed in an anterior/posterior position. One synchronized 200 J shock was delivered with successful religious of SR, VRs 70s. Complications: No acute complications. Plan: Chente Rubin is now recovering from sedation and anticipate discharge home later today. Dr. Zarate was the collaborating physician throughout the time services were performed. Vesna Rodriguez PA-C [facility] Cardiac Electrophysiology Services Anton Goodwin MD CV IMAGING F inal Result * ISTAT CHEM 8 (12/15/2024 11:34 AM CDT) Pathologist [facility] SODIUM, POCT 12/16/2024 3:52 PM CDT [facility] Comment:Unable to determine. POTASSIUM, POCT 4.2 3.5 - 5.0 mmol/L 12/16/2024 3:52 PM CDT [facility] CHLORIDE, POCT 12/16/2024 3:52 PM CDT [facility] Comment:Unable to determine. CO2,TOTAL, POCT 12/16/2024 3:52 PM CDT [facility] Comment:Unable to determine. ANION GAP, POCT 12/16/2024 3:52 PM CDT [facility] Comment:Unable to calculate. GLUCOSE, POCT 12/16/2024 3:52 PM CDT [facility] Comment:Unable to determine. IONIZED CALCIUM, POCT 12/16/2024 3:52 PM CDT [facility] Comment:Unable to determine. BUN, POCT 12/16/2024 3:52 PM CDT [facility] Comment:Unable to determine. CREATININE, POCT 12/16/2024 3:52 PM CDT [facility] Comment:Unable to determine. BUN/CREAT RATIO, POCT 12/16/2024 3:52 PM CDT [facility] Comment:Unable to calculate. eGFR 12/16/2024 3:52 PM CDT [facility] Comment:Unable to calculate. HEMATOCRIT, POCT 12/16/2024 3:52 PM CDT [facility] Comment:Unable to determine. HEMOGLOBIN, POCT 12/16/2024 3:52 PM CDT [facility] Comment:Unable to determine. Blood BLOOD SPECIMEN / Unknown 12/15/2024 11:34 AM CDT 12/16/2024 3:52 PM CDT Anton Goodwin MD CHEMISTRY F inal Result [facility] [address] [place] [id number], [place] * SCAN-CARDIAC STRIP (12/15/2024 12:00 AM [...] The ascending aortic repair is intact. The [place] aorta above the graft repair is borderline at 36 x 36 mm. The left atrial appendage has been successfully excluded with a Watchman device. There is no evidence for contrast in the device or around the device. MD TORIBIO Dumont/alec Narrative 12/13/2024 11:20 AM CDT Results are automatically released to your [employer] account once available, in compliance with federal [...] conjunction with the services provided by the [facility] ([facility]). INDICATION: Cardiac over-read. FINDINGS: Aorta: This is [...] [facility] INDICATION: Cardiac over-read. FINDINGS: Aorta: This is [...] Ketty SWENSON CT Final Res ult * NE READING EKG - NO CHARGE, COMP ONLY (11/19/2024 9:21 AM CDT) Adrien Hernandez MD PB - PROVIDER READINGS Fin al Result * (ABNORMAL) HEMOGLOBIN (11/18/2024 11:31 AM CDT) Pathologist [facility] HEMOGLOBIN 9.7(L) 13.2 - 17.1 g/dL Android App Review [facility] Blood BLOOD SPECIMEN / Unknown 11/18/2024 11:31 AM CDT 11/18/2024 11:32 AM CDT Adrien Hernandez MD HEMATOLOGY Final Resu lt [facility] [address] [place] [address], [place] [phone] [facility] [address] [place] [address] * ANTI HCV [95283.2] (05/02/2015 7:09 AM CDT) Pathologist [facility] HEPATITIS C ANTIBODY Non-Reacti ve Non-Reacti ve 05/02/2015 2:42 PM CDT [facility] Blood specimen (specimen) BLOOD SPECIMEN / Unknown Venipuncture / Unknown 05/02/2015 7:09 AM CDT 05/02/2015 7:09 AM CDT Narrative [facility] - 05/02/2015 2:42 PM CDT Antibodies to HCV not detected; does not exclude the possibility of exposure to HCV. us Maikol Cortes MD SEND OUTS Final Result [facility] [address] [place] [address], [place] from Last 3 Months or Most Recently Relevant to Health Maintenance Insurance [employer] [place] ONLY MEDICARE PART B HB ONLY MED[employer] PRIME SOLUTION HB MEDICARE PART A HB ONLY Advance Directives Documents on File Type Date Recorded Patient [employer] Director Expl anation Healthcare Directive 06/21/2024 024 Healthcare Directive 05/08/2016 2:18 PM [facility], 01/26/2016 Healthcare Directive 05/23/2014 11:40 AM QU[facility], 07/18/2005 * Full Code (Latest Code Status on File) Date Activated Date Inactivated Comments 12/28/2024 10:40 AM 12/29/2024 1:06 PM Question Answer Comments Code Status Discussion: Reviewed Preferences * Full Code Date Activated Date Inactivated Comments 11/16/2024 3:39 [...] Question Answer Comments Code Status Discussion: Discussed Care Teams Sales Project Manager Relationship Specialty Start Date End Date Adrien Hernandez MD [address] [place] [address] PCP - General Family Practice 10/28/16
[2025-02-18 21:06] VITALS: BP 121/64; PULSE 104; RESP 18; TEMP 36.8; O2SAT 97; BMI 25.8
--- NOTE | 2025-02-18 21:33 | CRLHL7_ITS ---
For Patients: As a result of the Cures Act, medical imaging exams and procedure reports are released immediately into your electronic medical record. You may view this report before your referring provider. If you have questions, please contact your health care provider. Indication: Fever. Technique: Two views of the chest. Comparison: Chest x-ray 07/27/2024. Findings/Impression: The heart is not abnormally enlarged. Mediastinal contours are grossly within normal limits. No confluent airspace opacity appreciated. No pleural effusion or pneumothorax. No acute osseous abnormality. Mild chronic multifocal vertebral body height loss. Dictated by Bran Leyva MD @ 02/18/2025 10:25:50 PM (Electronically Signed)
--- NOTE | 2025-02-18 21:34 | ED.GENADULT ---
HPI - General Adult General Date Seen: 02/18/25 Chief complaint: Fever Stated complaint: 2 days post op- fever Time Seen by Provider: 02/18/25 21:21 History of Present Illness HPI narrative: 79-year-old gentleman with history of paroxysmal AFib, watchman placement, aortic valve replacement, history of thoracic aortic aneurysm with repair(had aortic grafting in November [address] [facility]. Postop went into polymorphic V-tach but was defibrillated with ROSC), hypertension, systolic CHF, spinal stenosis. He is 2 days status post left hip replacement done here in [place] for hip osteoarthritis. He also had excision of a mass from his left anterior thigh. He was discharged yesterday on 02/17. Per his orthopedic progress note he was having some pain in the left thigh and hip. He is on apixaban for chronic AFib prophylaxis and also functioning for DVT prophylaxis. No fever chills or infection as per his orthopedic progress notes from yesterday. He has been doing well at home. Last dose of oxycodone was last night. He has been having a little bit of an upset stomach and poor appetite today but no vomiting. No bowel movements since prior to surgery. Urination has been normal. This evening he began to feel a bit achy and was running a fever. Temperature was 101? at home. He took ibuprofen prior to arrival and as a result his temperature is now come down. Other than feeling a little bit achy and fatigued and poor appetite no other real symptoms. Perhaps very mild phlegm in his nose but no stuffy nose, no cough, no sore throat. No trouble breathing. No headache. No earache. Bowel movements have been normal. He has not noticed any redness of his leg or around his incision. No bleeding under his dressings. He has not taken off his postop dressings yet. Related Data Home Medications ?Medication ?Instructions ?Recorded ?Confirmed amlodipine 5 mg tablet 5 mg PO DAILY 07/10/22 02/16/25 evolocumab 140 mg/mL subcutaneous 140 mg subcut Q14D 07/10/22 02/16/25 pen injector (Jarod Rodriguez) omeprazole 40 mg capsule,delayed 40 mg PO DAILY 07/21/23 02/16/25 release peg 400-propylene glycol 0.4 %-0.3 1 drp ophthalmic (eye) QID PRN 10/07/24 02/16/25 % eye gel drops apixaban 5 mg tablet (Eliquis) 5 mg PO BID 12/21/24 02/16/25 eszopiclone 1 mg tablet 2 mg PO HS 02/01/25 02/16/25 acetaminophen 500 mg capsule 1,000 mg PO Q6H PRN 02/16/25 02/16/25 celecoxib 100 mg capsule 100 mg PO DAILY 02/16/25 02/16/25 Held on 02/16/25. Instructions: Resume on 03/17/25. testosterone enanthate 75 mg/0.5 75 mg subcut Q7D 02/16/25 02/16/25 mL subcutaneous auto-injector (Xyosted) Previous Rx's ?Medication ?Instructions ?Recorded oxycodone 5 mg tablet 2.5 - 5 mg (0.5 - 1 x 5 mg) PO 02/16/25 Q4-6H PRN pain #42 tabs sennosides 8.6 mg-docusate sodium 1 - 4 tab-cap (1 - 4 x 8.6-50 mg) 02/16/25 50 mg tablet (Senna-S) PO BID PRN constipation #60 tabs Allergies Allergy/AdvReac Type Severity Reaction Status Date / Time latex Allergy Unknown Verified 02/19/25 00:02 atorvastatin Allergy Verified 02/19/25 00:02 lisinopril Allergy Verified 02/19/25 00:02 naproxen Allergy Nausea Verified 02/19/25 00:02 rosuvastatin Allergy Verified 02/19/25 00:02 [facility] Medical History (Updated 02/18/25 @ 23:39 by Isma Andujar MD) 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) On continuous oral anticoagulation ?Z79.01 - [facility] (current) use of anticoagulants (ICD-10) History of cardioversion ?Z92.89 - Personal history of other medical treatment (ICD-10) Postoperative cardiac arrest following cardiac surgery ?I97.120 - Postprocedural cardiac arrest following cardiac surgery (ICD-10) Osteoarthritis of right shoulder ?M19.011 - Primary osteoarthritis, right shoulder (ICD-10) Osteoarthritis of left knee ?M17.12 - Unilateral primary osteoarthritis, left knee (ICD-10) Osteoarthritis of right knee ?M17.11 - Unilateral primary osteoarthritis, right knee (ICD-10) COVID-19 ?U07.1 - COVID-19 (ICD-10) Atrophy of quadriceps femoris muscle ?M62.559 - Muscle wasting and atrophy, not elsewhere classified, unspecified thigh (ICD-10) 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 ?M51.16 - Intervertebral disc disorders with radiculopathy, lumbar region (ICD-10) Osteoarthritis of left shoulder ?M19.012 - Primary osteoarthritis, left shoulder (ICD-10) Left rotator cuff tear arthropathy ?M75.102 - Unspecified rotator cuff tear or rupture of left shoulder, not specified as traumatic (ICD-10) ?M12.812 - Other specific arthropathies, not elsewhere classified, left shoulder (ICD-10) Health care directive on file ?Z78.9 - Other specified health status (ICD-10) Sarcoidosis ?D86.9 - Sarcoidosis, unspecified (ICD-10) Atrial fibrillation ?I48.91 - Unspecified atrial fibrillation (ICD-10) Chronic systolic CHF (congestive heart failure) ?I50.22 - Chronic systolic (congestive) heart failure (ICD-10) Prostate cancer ?C61 - Malignant neoplasm of prostate (ICD-10) Hypertension ?I10 - Essential (primary) hypertension (ICD-10) Laceration of left side of forehead with complication ?S01.81XA - Laceration without foreign body of other part of head, initial encounter (ICD-10) Facial injury ?S09.93XA - Unspecified injury of face, initial encounter (ICD-10) Chronic headache ?R51.9 - Headache, unspecified (ICD-10) ?G89.29 - Other chronic pain (ICD-10) Atrial flutter with rapid ventricular response ?I48.92 - Unspecified atrial flutter (ICD-10) Atrial fibrillation with rapid ventricular response ?I48.91 - Unspecified atrial fibrillation (ICD-10) Methicillin resistant Staphylococcus aureus culture positive (03/31/19) ?Z22.322 - Carrier or suspected carrier of Methicillin resistant Staphylococcus aureus (ICD-10) Diverticulitis ?K57.92 - Diverticulitis of intestine, part unspecified, without perforation or abscess without bleeding (ICD-10) Surgical History (Updated 08/13/25 @ 22:55 by Joseline Zheng MD) History of cardiac ablation for atrial fibrillation ?Z98.890 - Other specified postprocedural states (ICD-10) ?I48.91 - Unspecified atrial fibrillation (ICD-10) History of open occlusion of left atrial appendage ?Z98.890 - Other specified postprocedural states (ICD-10) S/P AVR (aortic valve replacement) ?Z95.2 - Presence of prosthetic heart valve (ICD-10) S/P thoracic aortic aneurysm repair ?Z98.890 - Other specified postprocedural states (ICD-10) ?Z86.79 - Personal history of other diseases of the circulatory system (ICD-10) S/P total left hip arthroplasty ?Z96.642 - Presence of left artificial hip joint (ICD-10) Status post tendon repair (07/21/23) ?Z98.890 - Other specified postprocedural states (ICD-10) H/O prostatectomy (10/2014) ?Z90.79 - Acquired absence of other genital organ(s) (ICD-10) History of elbow surgery (01/19/04) ?Z98.890 - Other specified postprocedural states (ICD-10) Status post arthroscopy of left shoulder (03/02/03) ?Z98.890 - Other specified postprocedural states (ICD-10) S/P ankle joint replacement ?Z96.669 - Presence of unspecified artificial ankle joint (ICD-10) H/O elbow surgery (~09/2017) ?Z98.890 - Other specified postprocedural states (ICD-10) Social History Narrative: -Kristen What is your current living situation?: I presently have a place to live Problems where you live: no known problems In the past 12 months, utilities in danger of being shut off: no In past 12 months, lack of transportation kept you from medical appts, meetings, work, or getting things needed for daily living: no In the past 12 mos, have been you worried that your food would run out before you had money to buy more?: never true In the past 12 mos, the food you bought just didn't last and you didn't have money to buy more?: never true Smoking Status: Never smoker Do you use any of these nicotine containing products: None Second hand tobacco smoke exposure: No How often do you have a drink containing alcohol: never How often do you have six or more drinks on one occasion: Never AUDIT-C Alcohol total score: 0 Non-prescribed substance use: denies use Caffeine: Yes How often does anyone, including family, friends and others, physically hurt you: never How often does anyone, including family, friends and others, insult or talk down to you: never How often does anyone, including family, friends and others, threaten you with harm: never How often does anyone, including family, friends and others, scream or curse at you: never service: No Exam Narrative: Exam Narrative: Constitutional: Appears well-developed and well-nourished. Alert. Conversant. Looks tired but overall is ?nontoxic. ? HENT: Head: Atraumatic. Nose: Nose normal. Mouth/Throat: Oral mucosa is clear and moist. no trismus. Pharynx normal. Tonsils symmetric. No tonsillar enlargement, erythema, or exudate. Eyes: Conjunctivae normal. EOM normal. Pupils equal, round, and reactive to light. No scleral icterus. Neck: Normal range of motion. Neck supple. No tracheal deviation present. Cardiovascular: Normal rate, regular rhythm. No gallop. No friction rub. Systolic murmur heard. Symmetric radial artery pulses Pulmonary/Chest: Effort normal. No stridor. No respiratory distress. No wheezes. No rales. No rhonchi . No tenderness. Abdominal: Soft. Bowel sounds normal. No distension. No mass. No tenderness. No rebound. No guarding. No CVA tenderness Musculoskeletal: RUE: Normal range of motion. No tenderness. No deformity LUE: Normal range of motion. No tenderness. No deformity RLE: Normal range of motion. No edema. No tenderness. No deformity LLE: He has surgical dressings off over the lateral left hip and on the anterior left thigh. Dressings are in place. There is no surrounding erythema around the dressings but when I palpate the skin on his anterior left thigh it is definitely warmer than the skin of his right thigh. He does have subtle swelling of the left thigh but unclear if this is pathologic or simply postoperative. He has a previous left knee replacement incision and the knee looks good. No edema affecting his ankles Lymph: No cervical adenopathy. Neurological: Alert and oriented to person, place, and time. Normal strength. CN II-VII intact. No sensory deficit. GCS eye subscore is 4. GCS verbal subscore is 5. GCS motor subscore is 6. Normal coordination Skin: Skin is warm and dry. No rash noted. No pallor. Normal capillary refill. Psychiatric: Normal mood. Normal affect. Const: Vital Signs, click to edit/add: Vital Signs - 24 hr 02/18/25 21:06 02/18/25 23:00 Temperature 98.3 F 98.5 F Pulse Rate [Pulse Oximeter] 104 H 98 Respiratory Rate 18 18 Blood Pressure [Le ft Upper Arm] 121/64 150/83 H Pulse Oximetry 97 97 Oxygen Delivery Me thod Room Air Room Air Course Vital Signs Vital signs: Initial Vital Signs Temperature 98.3 F 02/18/25 21:06 Temperature Source Temporal Artery Scan 02/18/25 21:06 Pulse Rate 104 H 02/18/25 21:06 Respiratory Rate 18 02/18/25 21:06 Blood Pressure 121/64 02/18/25 21:06 Blood Pressure Mean 83 02/18/25 21:06 Blood Pressure Position Supine 02/18/25 21:06 Pulse Oximetry 97 02/18/25 21:06 Oxygen Delivery Method Room Air 02/18/25 21:06 Vital Signs Temperature 98.3 F 02/18/25 21:06 Pulse Rate 104 H 02/18/25 21:06 Respiratory Rate 18 02/18/25 21:06 Blood Pressure 121/64 02/18/25 21:06 Pulse Oximetry 97 02/18/25 21:06 Oxygen Delivery Method Room Air 02/18/25 21:06 Temperature 98.5 F 02/18/25 23:00 Pulse Rate 98 02/18/25 23:00 Respiratory Rate 18 02/18/25 23:00 Blood Pressure 150/83 H 02/18/25 23:00 Pulse Oximetry 97 02/18/25 23:00 Oxygen Delivery Method Room Air 02/18/25 23:00 Medications Administered Medications: Discontinued Medications Generic Name Dose Route Start Last Admin Trade Name Freq PRN Reason Stop Dose Admin Sodium Chloride 1,000 mls @ 1,000 mls/hr 02/18/25 21:45 08/15/25 23:03 0.9 % Sodium Chloride 1000 Ml IV 02/18/25 22:44 Infused .Q1H MARILYN Infusion Medical Decision Making [facility] Narrative Medical decision making narrative: Pleasant 79-year-old gentleman who is postop day 2 status post left hip replacement surgery and excision of a left thigh mass. He was discharged yesterday. He presents to the ER tonight with concern for generalized fatigue, malaise, poor appetite and fever up to 101 F measured at home. Patient had taken Tylenol at home and as result is not febrile here in the ER. However he is a reliable historian we do believe there is a fever occurring here. He is generally well-appearing. He has sinus tachycardia with heart rate up to 104. However blood pressure is normal. Mental status is normal. He is not ?toxic? appearing. With no leukocytosis, fever here in the ER, does not meet criteria for SIRS and sepsis at this time. Venous lactic acid is reassuring at 1.1. Differential for the fever is broad. He does not have any cough or shortness of breath or chest pain. At this point I do not think his fever represents an atypical presentation of PE. Overall my clinical suspicion for PE is quite low. He is moderate risk by well's score but is already on Eliquis. He is already on Eliquis for stroke prophylaxis for AFib and also for DVT prophylaxis in his postop status. He does not have any symptoms of DVT. Chest x-ray is obtained to look for potential pulmonary infection or pneumonia and is normal. Although he has no respiratory symptoms, COVID/influenza swab is obtained and is negative. Although he is not ?toxic?, consider possible bacteremia as a source for fever. Blood cultures are pending. He does have a history of aortic valve replacement. No known history of endocarditis. No skin findings to suggest endocarditis. No clear skin redness to suggest cellulitis. Urinalysis is normal. He has no urinary tract infection symptoms He has mild nausea but no abdominal tenderness on careful abdominal exam. At this point I have low suspicion for intra-abdominal pathology such as appendicitis, colitis, cholecystitis. No headache or confusion to suggest meningitis or [employer]ACH[employer] infection. Laboratory workup shows normal total white count but he does have a 77% neutrophil count. CRP is elevated at 26.7. Procalcitonin is 0.15 which would suggest possible non bacterial source for fever. Based on our lab cut off, antibiotics discouraged. Concern here is for possible postoperative wound infection or joint infection. Patient does have subtle warmth of his left thigh but no visible erythema. Left eye is slightly swollen. However this warmth and swelling could potentially be normal postoperative findings. Discussed with our orthopedic team, calls me is a MESSI. We discussed course of workup. At this point ortho does not feel that advanced imaging with CT or MRI is indicated as there is not likely to be any fluid collection. We would expect to see some inflammatory changes around the hip and the incision sites because the patient is postop. Therefore imaging would likely not discriminate postop healing versus infection. No other swollen or red joints. Discussed with our on-call orthopedics provider, MESSI Busby. based on our discussion, he and I agree that it would be reasonable to keep the patient in the hospital overnight and admit to the hospitalist service for obvious with plan for vital sign observation and watch for ongoing fever, check for recurring tachycardia or other abnormal vital signs, recheck labs in inflammatories markers in the morning and have repeat physical exam done by Orthopedics tomorrow. Since it is Friday night and tomorrow is Friday, there is no means of bring the patient back to the orthopedic clinic tomorrow for a recheck.. We discussed this plan of care with our evening hospitalist, Dr. Durham. She says that the patient does not meet criteria for staying in the hospital. However she does request a CT PA and a CT scan abdomen/pelvis to look for possible PE. CT scan is obtained and is negative for PE. CT of the lungs does show micronodularity lungs which has been present previously but is slightly more prominent. Could be infectious or inflammatory. However with no cough, shortness of breath, chest pain, clinically this is not fit with pneumonia. CT scan of his abdomen/pelvis is negative for any inflammatory infectious process. There are postop changes around the left hip which would be expected at this stage but no definitive fluid collection or abscess. Discussed with the overnight hospitalist, Dr. Holden, from [facility]. He will accept the patient for admission. Plan will be to bobs overnight, watch for recurring tachycardia or fever, recheck inflammatory markers in the morning and have repeat clinical exam by Ortho tomorrow. Patient strongly in agreement with plan of care. He still feels generally unwell, malaise, poor appetite. Although he is no longer febrile, still feeling sick and achy.. Lab Data Labs: Lab Results 02/18/25 02/18/25 02/18/25 Range/Units 21:20 21:36 22:08 WBC 9.55 (4.50-11.00) K/uL RBC 3.46 L (4.30-5.90) m/uL Hgb 9.3 L (13.5-17.5) gm/dL Hct 29.7 L (37.0-53.0) % MCV 86 (80-100) fL MCH 27 (26-34) pg MCHC 31 L (32-36) gm/dL RDW Coeff of Gin 17.4 H (11.5-15.5) % Plt Count 210 (140-440) K/uL Neut % (Auto) 77.4 H (42.0-72.0) % Lymph % (Auto) 7.2 L (20-44) % [place] % (Auto) 11.7 H (0.0-11.0) % Eos % (Auto) 2.4 (0.0-7.0) % Baso % (Auto) 0.3 (0.0-3.0) % Neut # (Auto) 7.40 H (1.7-7.0) K/uL Lymph # (Auto) 0.70 L (0.90-2.90) K/uL [place] # (Auto) 1.10 H (0.00-0.90) K/UL Eos # (Auto) 0.23 (0.00-0.50) K/uL Baso # (Auto) 0.03 (0.00-0.30) K/uL Abs Immat Gran (auto) 0.10 (0.00-0.30) K/uL Imm/Tot Granulo (auto) 1.0 % Sodium 133 L (135-149) mmol/L Potassium 3.7 (3.6-5.1) mmol/L Chloride 102 (96-114) mmol/L Carbon Dioxide 26 (20-32) mmol/L Anion Gap 5 L (7-15) mEq/L BUN 14 (7-30) mg/dL Creatinine 0.7 (0.5-1.5) mg/dL Estimated Creat Clear 67.90 Estimated GFR 95 ml/min Glucose 127 H (60-115) mg/dL Lactate 1.1 (0.5-1.9) mmol/L Calcium 8.9 (8.4-10.6) mg/dL C-Reactive Protein 26.7 H (0.5-1.0) mg/dL Procalcitonin 0.15 (<0.50) ng/mL Urine Color Yellow (Yellow) Urine Appearance Clear (Clear) Urine pH 6.0 (5.0-8.5) Ur Specific [place] 1.010 (1.000-1.030) Urine Protein Trace A (Negative) Urine Glucose (UA) Negative (Negative) Urine Ketones Trace A (Negative) Urine Blood Negative (Negative) Urine Nitrite Negative (Negative) Urine Bilirubin Negative (Negative) Urine Urobilinogen 1.0 (0.2-1.0) Ur Leukocyte Esterase Negative (Negative) Urine RBC 0-2 (0-2) Urine WBC 2-5 (0-5) Ur Squamous Epith Cells None (None-Few) Urine Bacteria None (None) SARS-CoV-2 (PCR) Negative SARS-CoV-2 (Negative) Influenza Type A (PCR) Negative PCR FLU A (Negative) Influenza Type B (PCR) Negative PCR FLU B (Negative) Imaging Data Chest x-ray: Attestation: I have reviewed the pertinent imaging results. My impression: No acute infiltrate. Radiologist's impression: Findings/Impression: The heart is not abnormally enlarged. Mediastinal contours are grossly within normal limits. No confluent airspace opacity appreciated. No pleural effusion or pneumothorax. No acute osseous abnormality. Mild chronic multifocal vertebral body height loss. CT scan - chest: Attestation: I have reviewed the pertinent imaging results. Radiologist's impression: IMPRESSION: 1. No pulmonary embolism identified. 2. Regions of mild clustered micro nodularity within the bilateral upper lobes, slightly increased in prominence compared to prior exams, may be indicative of mild infectious/inflammatory process. 3. Prominent mediastinal and right hilar lymph nodes, grossly unchanged. CT scan - abdomen: Attestation: I have reviewed the pertinent imaging results. Radiologist's impression: IMPRESSION: 1. Recent postsurgical changes of left total hip arthroplasty. 2. No acute findings within the abdomen and pelvis. 3. Diverticulosis without evidence for acute diverticulitis. ECG Data Attestation: I personally reviewed and interpreted this ECG as follows: Interpretation: Sinus tachycardia Rate 101 WV interval 202 Normal QRS axis No ST segment elevation or depression. Nonspecific T-wave flattening in multiple leads. Unchanged T-waves compared to 12/25/2024 QTC 438 Discharge Plan Discharge Clinical Impression: Fever Patient Disposition: Admitted As Observation
[2025-02-18 22:14] LABS: Lactate* 1.1 mmol/L (0.5-1.9)
[2025-02-18 22:14] LABS: Appearance Urine Clear (Clear)
[2025-02-18 22:20] LABS: Chloride* 102 mmol/L (96-114); Sodium* 133 mmol/L (135-149)
[2025-02-18 22:21] LABS: Potassium* 3.7 mmol/L (3.6-5.1)
[2025-02-18 22:22] LABS: Hematocrit 29.7 % (37.0-53.0); Hemoglobin* 9.3 gm/dL (13.5-17.5); Immature Granulocytes Abs Auto 0.10 K/uL (0.00-0.30); Immature Granulocytes Pct Auto 1.0 %; Mean Corpuscular HGB Conc 31 gm/dL (32-36); Mean Corpuscular Hemoglobin 27 pg (26-34); Mean Corpuscular Volume 86 fL (80-100); RDW Coefficient of Variation % 17.4 % (11.5-15.5); Red Blood Count 3.46 m/uL (4.30-5.90); White Blood Count* 9.55 K/uL (4.50-11.00)
[2025-02-18 22:23] LABS: Blood Urea Nitrogen* 14 mg/dL (7-30); Creatinine* 0.7 mg/dL (0.5-1.5); Est. Creatinine Clearance* 67.90; Estimated Glomerular Filt Rate 95 ml/min
[2025-02-18 22:24] LABS: Anion Gap 5 mEq/L (7-15); Calcium* 8.9 mg/dL (8.4-10.6); Carbon Dioxide* 26 mmol/L (20-32); Glucose* 127 mg/dL (60-115)
[2025-02-18 22:27] LABS: Lymphocytes Absolute Auto 0.70 K/uL (0.90-2.90); Slide Review Reflex No
[2025-02-18 22:39] LABS: PCR FLU A Negative PCR FLU A (Negative); PCR FLU B Negative PCR FLU B (Negative); SARS PCR* Negative SARS-CoV-2 (Negative)
[2025-02-18 22:41] LABS: Procalcitonin* 0.15 ng/mL (<0.50)
[2025-02-18 23:00] VITALS: BP 150/83; PULSE 98; RESP 18; TEMP 36.9; O2SAT 97
--- NOTE | 2025-02-18 23:25 | CRLHL7_ITS ---
For Patients: As a result of the Century Cures Act, medical imaging exams and procedure reports are released immediately into your electronic medical record. You may view this report before your referring provider. If you have questions, please contact your health care provider. INDICATION: FEVER, TACHYCARDIA, NAUSEA, HIP REPLACEMENT SURGERY 02-16-25. TECHNIQUE: CT abdomen and pelvis acquired with 95 cc of Isovue 370 IV contrast. COMPARISON: None. FINDINGS: Lower chest: Aortic valve replacement. Lung bases are clear. Liver: Unremarkable. Normal in size and attenuation. No suspicious masses. Gallbladder and bile ducts: Unremarkable. No stones or inflammation. No biliary dilatation. Pancreas: Unremarkable. No mass or inflammation. Spleen: Unremarkable. Normal in size. No masses. Adrenal glands: Unremarkable. No nodules. Kidneys: Punctate nonobstructing left nephrolith. GI tract: Small duodenal diverticulum. Diverticulosis without pericolonic inflammation. No obstruction. Normal appendix. Vasculature: Normal caliber abdominal aorta with mild atherosclerotic calcification. Mesenteric arteries are patent. Lymph nodes: No lymphadenopathy. Peritoneum/Abdominal Wall: Unchanged mild inflammatory stranding within the subcutaneous fat over the lower abdomen. No free air or significant free fluid. Pelvis: Unchanged penile prosthesis. Bones: Recent postsurgical changes of left total hip arthroplasty. 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 IMPRESSION: 1. Recent postsurgical changes of left total hip arthroplasty. 2. No acute findings within the abdomen and pelvis. 3. Diverticulosis without evidence for acute diverticulitis. Please note that all CT scans at this facility use dose modulation, iterative reconstruction, and/or weight-based dosing when appropriate to reduce radiation dose to as low as reasonably achievable. Dictated by Isma Lang MD @ 02/19/2025 12:10:55 AM (Electronically Signed)
--- NOTE | 2025-02-18 23:25 | CRLHL7_ITS ---
For Patients: As a result of the Century Cures Act, medical imaging exams and procedure reports are released immediately into your electronic medical record. You may view this report before your referring provider. If you have questions, please contact your health care provider. INDICATION: Hip replacement surgery 02/16/2025. Fever, tachycardia, and nausea. Concern for pulmonary embolism. TECHNIQUE: CT chest PE was acquired with 95 cc Isovue 370 IV contrast. Multiplanar reformats performed including 3D MIP reconstructions. COMPARISON: Chest x-ray 02/18/2025. CT cardiac morphology 12/13/2024. CT chest 04/29/2023 FINDINGS: Heart and vasculature: No pulmonary embolism identified. Main pulmonary artery normal in caliber. No thoracic aortic aneurysm. No cardiomegaly or pericardial effusion. Postoperative changes of the aorta. Lungs and pleura: Regions of mild clustered micro nodularity within the bilateral upper lobes, slightly increased in prominence compared to prior exams. No pleural effusion or pneumothorax. Patent central airways. Lymph nodes/mediastinum: Several mildly prominent mediastinal lymph nodes do not meet size criteria for enlargement. Enlarged right hilar lymph node measuring 1.8 cm in short axis (series 4, image 103), similar to prior. Chest wall: No suspicious chest wall mass or fluid collection. Upper abdomen: Please see separately dictated CT of the abdomen/pelvis for description of intra-abdominal contents. Bones: No acute abnormality. IMPRESSION: 1. No pulmonary embolism identified. 2. Regions of mild clustered micro nodularity within the bilateral upper lobes, slightly increased in prominence compared to prior exams, may be indicative of mild infectious/inflammatory process. 3. Prominent mediastinal and right hilar lymph nodes, grossly unchanged. Please note that all CT scans at this facility use dose modulation, iterative reconstruction, and/or weight-based dosing when appropriate to reduce radiation dose to as low as reasonably achievable. Dictated by Bran Leyva MD @ 02/19/2025 12:07:18 AM (Electronically Signed)
[2025-02-19] VITALS (10 sets, daily range): BP systolic 112–153; BP diastolic 68–87; PULSE 87–106; RESP 16–18; TEMP 36.4–37.2; O2SAT 95–98
--- NOTE | 2025-02-19 01:25 | W.PM.TELEH&P ---
Telehealth- H&P: HPI History of Present Illness Date Seen: 02/19/25 Chief complaint: 2 days post op- fever Narrative: Chente Rubin is seen as an Interactive Telehealth visit. Chente Rubin is a 79-year-old male who just recently underwent a hip surgery. Postoperative, he was provided pain medications, anti-inflammatories, Eliquis Twice daily for DVT prophylaxis. Unfortunately over the past 24.8 hours he has been feeling increasingly weak fatigued with worsening left leg pain and now developed fevers. At the site, the patient Significant redness but was having tenderness. Patiently undergo CT scan of the chest which is negative for PE. Urinalysis was negative. Blood cultures were obtained. Influenza and COVID was negative. 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) On continuous oral anticoagulation ?Z79.01 - FPC (current) use of anticoagulants (ICD-10) History of cardioversion ?Z92.89 - Personal history of other medical treatment (ICD-10) Postoperative cardiac arrest following cardiac surgery ?I97.120 - Postprocedural cardiac arrest following cardiac surgery (ICD-10) Osteoarthritis of right shoulder ?M19.011 - Primary osteoarthritis, right shoulder (ICD-10) Osteoarthritis of left knee ?M17.12 - Unilateral primary osteoarthritis, left knee (ICD-10) Osteoarthritis of right knee ?M17.11 - Unilateral primary osteoarthritis, right knee (ICD-10) COVID-19 ?U07.1 - COVID-19 (ICD-10) Atrophy of quadriceps femoris muscle ?M62.559 - Muscle wasting and atrophy, not elsewhere classified, unspecified thigh (ICD-10) 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 ?M51.16 - Intervertebral disc disorders with radiculopathy, lumbar region (ICD-10) Osteoarthritis of left shoulder ?M19.012 - Primary osteoarthritis, left shoulder (ICD-10) Left rotator cuff tear arthropathy ?M75.102 - Unspecified rotator cuff tear or rupture of left shoulder, not specified as traumatic (ICD-10) ?M12.812 - Other specific arthropathies, not elsewhere classified, left shoulder (ICD-10) Health care directive on file ?Z78.9 - Other specified health status (ICD-10) Sarcoidosis ?D86.9 - Sarcoidosis, unspecified (ICD-10) Atrial fibrillation ?I48.91 - Unspecified atrial fibrillation (ICD-10) Chronic systolic CHF (congestive heart failure) ?I50.22 - Chronic systolic (congestive) heart failure (ICD-10) Prostate cancer ?C61 - Malignant neoplasm of prostate (ICD-10) Hypertension ?I10 - Essential (primary) hypertension (ICD-10) Laceration of left side of forehead with complication ?S01.81XA - Laceration without foreign body of other part of head, initial encounter (ICD-10) Facial injury ?S09.93XA - Unspecified injury of face, initial encounter (ICD-10) Chronic headache ?R51.9 - Headache, unspecified (ICD-10) ?G89.29 - Other chronic pain (ICD-10) Atrial flutter with rapid ventricular response ?I48.92 - Unspecified atrial flutter (ICD-10) Atrial fibrillation with rapid ventricular response ?I48.91 - Unspecified atrial fibrillation (ICD-10) Methicillin resistant Staphylococcus aureus culture positive (03/31/19) ?Z22.322 - Carrier or suspected carrier of Methicillin resistant Staphylococcus aureus (ICD-10) Diverticulitis ?K57.92 - Diverticulitis of intestine, part unspecified, without perforation or abscess without bleeding (ICD-10) Surgical History (Updated 02/16/25 @ 22:55 by Joseline Zheng MD) History of cardiac ablation for atrial fibrillation ?Z98.890 - Other specified postprocedural states (ICD-10) ?I48.91 - Unspecified atrial fibrillation (ICD-10) History of open occlusion of left atrial appendage ?Z98.890 - Other specified postprocedural states (ICD-10) S/P AVR (aortic valve replacement) ?Z95.2 - Presence of prosthetic heart valve (ICD-10) S/P thoracic aortic aneurysm repair ?Z98.890 - Other specified postprocedural states (ICD-10) ?Z86.79 - Personal history of other diseases of the circulatory system (ICD-10) S/P total left hip arthroplasty ?Z96.642 - Presence of left artificial hip joint (ICD-10) Status post tendon repair (07/21/23) ?Z98.890 - Other specified postprocedural states (ICD-10) H/O prostatectomy (10/2014) ?Z90.79 - Acquired absence of other genital organ(s) (ICD-10) History of elbow surgery (01/19/04) ?Z98.890 - Other specified postprocedural states (ICD-10) Status post arthroscopy of left shoulder (03/02/03) ?Z98.890 - Other specified postprocedural states (ICD-10) S/P ankle joint replacement ?Z96.669 - Presence of unspecified artificial ankle joint (ICD-10) H/O elbow surgery (~09/2017) ?Z98.890 - Other specified postprocedural states (ICD-10) Social History Narrative: -Kristen What is your current living situation?: I presently have a place to live Problems where you live: no known problems In the past 12 months, utilities in danger of being shut off: no In past 12 months, lack of transportation kept you from medical appts, meetings, work, or getting things needed for daily living: no In the past 12 mos, have been you worried that your food would run out before you had money to buy more?: never true In the past 12 mos, the food you bought just didn't last and you didn't have money to buy more?: never true Smoking Status: Never smoker Do you use any of these nicotine containing products: None Second hand tobacco smoke exposure: No How often do you have a drink containing alcohol: never How often do you have six or more drinks on one occasion: Never AUDIT-C Alcohol total score: 0 Non-prescribed substance use: denies use Caffeine: Yes How often does anyone, including family, friends and others, physically hurt you: never How often does anyone, including family, friends and others, insult or talk down to you: never How often does anyone, including family, friends and others, threaten you with harm: never How often does anyone, including family, friends and others, scream or curse at you: never service: No Meds Home Medications and Allergies Home Medications ?Medication ?Instructions ?Recorded ?Confirmed ?Type amlodipine 5 mg tablet 5 mg PO DAILY 07/10/22 02/16/25 History evolocumab 140 mg/mL subcutaneous 140 mg subcut Q14D 07/10/22 02/16/25 History pen injector (Jarod Rodirguez) omeprazole 40 mg capsule,delayed 40 mg PO DAILY 07/21/23 02/16/25 History release peg 400-propylene glycol 0.4 %-0.3 1 drp ophthalmic (eye) QID PRN 10/07/24 02/16/25 History % eye gel drops apixaban 5 mg tablet (Eliquis) 5 mg PO BID 12/21/24 02/16/25 History eszopiclone 1 mg tablet 2 mg PO HS 02/01/25 02/16/25 History acetaminophen 500 mg capsule 1,000 mg PO Q6H PRN 02/16/25 02/16/25 History celecoxib 100 mg capsule 100 mg PO DAILY 02/16/25 02/16/25 History Held on 02/16/25. Instructions: Resume on 03/17/25. oxycodone 5 mg tablet 2.5 - 5 mg (0.5 - 1 x 5 mg) PO 02/16/25 Rx Q4-6H PRN pain #42 tabs sennosides 8.6 mg-docusate sodium 1 - 4 tab-cap (1 - 4 x 8.6-50 mg) 02/16/25 Rx 50 mg tablet (Senna-S) PO BID PRN constipation #60 tabs testosterone enanthate 75 mg/0.5 75 mg subcut Q7D 02/16/25 02/16/25 History mL subcutaneous auto-injector (Xyosted) Allergies Allergy/AdvReac Type Severity Reaction Status Date / Time latex Allergy Unknown Verified 02/19/25 00:02 atorvastatin Allergy Verified 02/19/25 00:02 lisinopril Allergy Verified 02/19/25 00:02 naproxen Allergy Nausea Verified 02/19/25 00:02 rosuvastatin Allergy Verified 02/19/25 00:02 Exam Narrative Exam Narrative: Physical Exam GENERAL: ?vital signs reviewed, well developed and nourished, in no distress HEENT: pupils are equal round and reactive to light, extraocular movements are grossly within normal limits and oral mucosa is moist. NECK: Supple without lymphadenopathy or thyromegaly according to nursing staff examination observation HEART: Regular rate and rhythm without any rubs, murmurs, or gallops. LUNGS: Clear to auscultation bilaterally with good air movement throughout ABDOMEN: Observation from nurse assisted exam, abdomen appears soft, nontender, and nondistended with Positive bowel sounds noted. EXTREMITIES: post operative state of left hip. no redness or purulence at site SKIN:? Observed warm and dry with color normal Const Vital Signs, click to edit/add: Vital Signs - 24 hr 02/18/25 21:06 02/18/25 23:00 Temperature 98.3 F 98.5 F Pulse Rate [Pulse Oximeter] 104 H 98 Respiratory Rate 18 18 Blood Pressure [Left Upper Arm] 121/64 150/83 H Pulse Oximetry 97 97 Oxygen Delivery Method Room Air Room Air Hospitalist - H&P: Result Labs Labs: Short CBC 02/18/25 Range/Units 21:20 WBC 9.55 (4.50-11.00) K/uL Hgb 9.3 L (13.5-17.5) gm/dL Hct 29.7 L (37.0-53.0) % Plt Count 210 (140-440) K/uL BMP 02/18/25 21:36 Sodium 133 L Potassium 3.7 Chloride 102 Carbon Dioxide 26 BUN 14 Creatinine 0.7 Glucose 127 H Calcium 8.9 Urine 02/18/25 Range/Units 22:08 Urine Color Yellow (Yellow) Urine Appearance Clear (Clear) Urine pH 6.0 (5.0-8.5) Ur Specific [place] 1.010 (1.000-1.030) Urine Protein Trace A (Negative) Urine Glucose (UA) Negative (Negative) Assessment and Plan Assessment and plan (1) Fever: Status: Acute (2) S/P total left hip arthroplasty: Problem comment: Dr. Humphries, 02/16/2025 Hospital medicine team is happy to follow the patient through to discharge. He is a complicated We are expecting a routine postoperative course. I have reconciled home medications and completed our part of the discharge. -I will hold antihypertensives as indicated per our practice standard -I will place telemetry order -Recommend continuing eliquis the morning of 02/17 for anticoagulation. Status: Acute (3) Lipoma of left thigh: Problem comment: -mass measured 13 x 7 x 6 cm -anterior thigh -surgically excised february 2025; tagged and sent to pathology. clinically c/w lipoma. Status: Acute (4) Postoperative cardiac arrest following cardiac surgery: Problem comment: Polymorphic VT from his pacemaker postop. The thought was the pacer delivered the pacing stimulus during the T wave. under sensing error. Defibrillated; no CPR. ROSC without complication. Status: Acute (5) History of cardioversion: Problem comment: several interventions in 2024 ANW: 11/10/24 PABLO guided cardioversion (post op and after VTach defibrillation) and 12/15/24 cardioverted again NFH: Jul 2024 x 2, aug 2024, December 2024 x 2. finally had a PFA ablation (vs RF) on 12/28/24 - NSR since Status: Acute (6) History of cardiac ablation for atrial fibrillation: Problem comment: complicated history; failed ablations in 2014 and 2020 watchman placed in 2022 recurrent afib/flutter in 2024 - [place] after cardiac surgery for AVR/aneurysmal repair w/graft; cardioversions failed ... last intervention: 12/28/24 - ablation for atypical atrial flutter x2 (PFA Affera). NSR since. Pt has [employer] for home monitoring. on OAC, eliquis 5 mg BID decatizer is Dr Goodman at [facility] Status: Acute (7) On continuous oral anticoagulation: Problem comment: -has a watchman but with recent procedures; is on elquis thru 02/23/25 -I would extend this for the entire period of VTE prophylaxis. Status: Acute (8) S/P AVR (aortic valve replacement): Problem comment: 11/04/24 ANW Heart; Dr. Raudel Rhodes MADAI-STERNOTOMY, AORTIC VALVE REPLACEMENT WITH 25MM INSPIRIS, ASCENDING AORTIC ANEURYSM REPAIR WITH 28MM STRAIGHT GELWEAVE GRAFT, PLACEMENT OF TEMPORARY VENTRICULAR PACING WIRES Status: Acute (9) S/P thoracic aortic aneurysm repair: Problem comment: 11/04/24 ANW Heart; Dr. Raudel Rhodes MADAI-STERNOTOMY, AORTIC VALVE REPLACEMENT WITH 25MM INSPIRIS, ASCENDING AORTIC ANEURYSM REPAIR WITH 28MM STRAIGHT GELWEAVE GRAFT, PLACEMENT OF TEMPORARY VENTRICULAR PACING WIRES Status: Acute Plan Assessment and plan Fevers in the postoperative state, this patient continues to have fevers. Postoperative fevers are normal. But things like atelectasis, infection or bacterial viral I will hold off on antibiotics at this time. My worry is that this patient's fevers may be related to the Repatha subcutaneous injection that this patient already takes. His injection site was the same site and tissue as where his surgery was. Will need to have we have not found any infectious etiology fevers. Repatha is known to cause injection site tenderness and even fevers. The patient did take his Repatha with potential on the side of his surgery. Cultures are pending hold off on antibiotics will provide Tylenol scheduled History of atrial fibrillation status post ablation cardioversion Continues anticoagulation: In the postoperative state, we will continue the Eliquis. I will check an ultrasound of the legs to ensure he is not developing DVTs through his medication. Telehealth Visit: Todays History and Physical is via interactive telehealth by Dr Benito Holden MD The Patient is located [facility] physician is located at [facility]. Nursing staff assisted in the patient's exam. The visit being done today meets criteria for a telehealth visit and the patient or patient's parent/guardian is aware the visit is a telehealth visit. Camera Start time 130 Camera End time 200 Telehealth: Statement Statement Telehealth Visit: Today's History and Physical is provided via interactive telehealth by Benito Holden MD.? Patient is located at [facility].? Provider is located at [facility].? Nursing staff assisted with the patient's exam. The visit being done today meets criteria for a telehealth visit and the patient or patient?s parent/guardian is aware the visit is a telehealth visit.
--- NOTE | 2025-02-19 01:28 | CRLHL7_ITS ---
For Patients: As a result of the Century Cures Act, medical imaging exams and procedure reports are released immediately into your electronic medical record. You may view this report before your referring provider. If you have questions, please contact your health care provider. INDICATION: Leg pain and swelling. TECHNIQUE: Ultrasound venous duplex bilateral lower extremity. Compression venous exam was performed using wild-scale, color Doppler, and spectral Doppler analysis. COMPARISON: None. FINDINGS: Deep veins: Sonographic imaging demonstrates bilateral common femoral, deep femoral, superficial femoral, popliteal, posterior tibial and peroneal veins to be fully compressible with normal color Doppler blood flow. Superficial veins: Greater saphenous vein is fully compressible. No popliteal cyst. IMPRESSION: No evidence of deep venous thrombosis in bilateral lower extremity. Dictated by Ace Phillips MD @ 02/19/2025 8:33:30 AM (Electronically Signed)
[2025-02-19] MEDS: PANTOPRAZOLE SODIUM 40 MG INJ IVP (01:56)
--- NOTE | 2025-02-19 07:12 | PC.NURSE ---
End of shift: pt arrived to floor at 0105; alert, oriented and VSS. Pain rated 9/10, prn oxy given and pt stated improvement. Dressings C/D/I. No redness noted around the sites. Pt denies nausea, headache, and dizziness. Pt in bed, appears to be resting, call light within reach. ?
--- NOTE | 2025-02-19 08:04 | PM.IMPN1 ---
Assessment and Plan Assessment and plan (1) Fever: Problem comment: -reported at home; not observed here. -imaging and wounds are reassuring. -no symptoms of URI or lower resp infection. -no antibiotics currently -incentive spirometer encouraged -will discharge in am if continues to be afebrile. Status: Acute (2) S/P total left hip arthroplasty: Problem comment: Dr. Humphries, 02/16/2025 Post-op Day 3 Status: Acute (3) Lipoma of left thigh: Problem comment: -mass measured 13 x 7 x 6 cm -anterior thigh -surgically excised february 2025; tagged and sent to pathology. clinically c/w lipoma. Status: Acute (4) Postoperative cardiac arrest following cardiac surgery: Problem comment: Polymorphic VT from his pacemaker postop. The thought was the pacer delivered the pacing stimulus during the T wave. under sensing error. Defibrillated; no CPR. ROSC without complication. Status: Acute (5) History of cardioversion: Problem comment: several interventions in 2024 ANW: 11/10/24 PABLO guided cardioversion (post op and after VTach defibrillation) and 12/15/24 cardioverted again NFH: Jul 2024 x 2, aug 2024, December 2024 x 2. finally had a PFA ablation (vs RF) on 12/28/24 - NSR since Status: Acute (6) History of cardiac ablation for atrial fibrillation: Problem comment: complicated history; failed ablations in 2014 and 2020 watchman placed in 2022 recurrent afib/flutter in 2024 - [place] after cardiac surgery for AVR/aneurysmal repair w/graft; cardioversions failed ... last intervention: 12/28/24 - ablation for atypical atrial flutter x2 (PFA Affera). NSR since. Pt has [employer] for home monitoring. 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 Status: Acute (8) S/P AVR (aortic valve replacement): Problem comment: 11/04/24 ANW Heart; Dr. Raudel Rhodes MADAI-STERNOTOMY, AORTIC VALVE REPLACEMENT WITH 25MM INSPIRIS, ASCENDING AORTIC ANEURYSM REPAIR WITH 28MM STRAIGHT GELWEAVE GRAFT, PLACEMENT OF TEMPORARY VENTRICULAR PACING WIRES Status: Acute (9) S/P thoracic aortic aneurysm repair: Problem comment: 11/04/24 ANW Heart; Dr. Raudel Rhodes MADAI-STERNOTOMY, AORTIC VALVE REPLACEMENT WITH 25MM INSPIRIS, ASCENDING AORTIC ANEURYSM REPAIR WITH 28MM STRAIGHT GELWEAVE GRAFT, PLACEMENT OF TEMPORARY VENTRICULAR PACING WIRES Status: Acute Subjective Date Seen: 02/19/25 Interval history: Daily Progress Note - Hospital Medicine Day #: 2 CC: post-op fever 24 HOUR UPDATE: no fever's overnight. nonspecific malaise. wounds from lipoma excision; hip replacement look appropriate for post op status. no drainage. rev'd admission imaging and current labs. Notable Labs, Micro, Rads, Interventions: Vital signs are stable CBC reveals his postop anemia, 9.1 White count is not elevated Electrolytes reviewed. CRP is elevated but this is also consistent with being postop. His procalcitonin is negative. UA is reassuring. CTA is negative for PE. Venous duplex is negative. For VTE. Blood cultures x2 negative to date. CT chest: Regions of mild clustered micro nodularity within the bilateral upper lobes, slightly increased in prominence compared to prior exams, may be indicative of mild infectious/inflammatory process. CT A/P from admission 1. Recent postsurgical changes of left total hip arthroplasty. 2. No acute findings within the abdomen and pelvis. 3. Diverticulosis without evidence for acute diverticulitis. Objective: alert. mildly anxious. Vitals: see above Lungs: Clear. Cardiac: S1S2. left hip: incisions are clean/dry/approximated. Disposition/Potential discharge - overnight observation Today I spent 50minutes seeing the patient, reviewing Expanse and EPIC notes/diagnostics, discussing the care plan with our care time that includes social work, PT/OT, pharmacy, RT, senior care and documenting my impressions and plan in the medical record. Exam Const: Vital Signs, click to edit/add: Vital Signs - 24 hr 02/18/25 21:06 02/18/25 23:00 02/19/25 01:05 Temperature 98.3 F 98.5 F 97.6 F Pulse Rate [Pulse Oximeter] 104 H 98 100 Respiratory Rate 18 18 18 Blood Pressure [Le ft Arm] 139/72 Blood Pressure [Le ft Upper Arm] 121/64 150/83 H Pulse Oximetry 97 97 97 Oxygen Delivery Me thod Room Air Room Air Room Air 02/19/25 01:05 02/19/25 03:00 Temperature 98.9 F Pulse Rate [Pulse Oximeter] 95 Respiratory Rate 18 16 Blood Pressure [Le ft Arm] 118/68 Blood Pressure [Le ft Upper Arm] Pulse Oximetry 97 95 Oxygen Delivery Me thod Room Air Room Air Labs Labs: Laboratory Results - last 24 hr 02/18/25 02/18/25 02/18/25 21:20 21:36 22:08 WBC 9.55 RBC 3.46 L Hgb 9.3 L Hct 29.7 L MCV 86 MCH 27 MCHC 31 L RDW Coeff of Gin 17.4 H Plt Count 210 Neut % (Auto) 77.4 H Lymph % (Auto) 7.2 L [place] % (Auto) 11.7 H Eos % (Auto) 2.4 Baso % (Auto) 0.3 Neut # (Auto) 7.40 H Lymph # (Auto) 0.70 L [place] # (Auto) 1.10 H Eos # (Auto) 0.23 Baso # (Auto) 0.03 Abs Immat Gran (auto) 0.10 Imm/Tot Granulo (auto) 1.0 Sodium 133 L Potassium 3.7 Chloride 102 Carbon Dioxide 26 Anion Gap 5 L BUN 14 Creatinine 0.7 Estimated Creat Clear 67.90 Estimated GFR 95 Glucose 127 H Lactate 1.1 Calcium 8.9 C-Reactive Protein 26.7 H Procalcitonin 0.15 Urine Color Yellow Urine Appearance Clear Urine pH 6.0 Ur Specific [place] 1.010 Urine Protein Trace A Urine Glucose (UA) Negative Urine Ketones Trace A Urine Blood Negative Urine Nitrite Negative Urine Bilirubin Negative Urine Urobilinogen 1.0 Ur Leukocyte Esterase Negative Urine RBC 0-2 Urine WBC 2-5 Ur Squamous Epith Cells None Urine Bacteria None SARS-CoV-2 (PCR) Negative SARS-CoV-2 Influenza Type A (PCR) Negative PCR FLU A Influenza Type B (PCR) Negative PCR FLU B
[2025-02-19 08:40] LABS: Lactate* 1.0 mmol/L (0.5-1.9)
[2025-02-19 08:41] LABS: Hematocrit 29.1 % (37.0-53.0); Hemoglobin* 9.1 gm/dL (13.5-17.5); Immature Granulocytes Abs Auto 0.03 K/uL (0.00-0.30); Immature Granulocytes Pct Auto 0.4 %; Mean Corpuscular HGB Conc 31 gm/dL (32-36); Mean Corpuscular Hemoglobin 27 pg (26-34); Mean Corpuscular Volume 86 fL (80-100); RDW Coefficient of Variation % 17.4 % (11.5-15.5); Red Blood Count 3.40 m/uL (4.30-5.90); White Blood Count* 8.40 K/uL (4.50-11.00)
[2025-02-19 08:44] LABS: Lymphocytes Absolute Auto 0.60 K/uL (0.90-2.90); Slide Review Reflex No
[2025-02-19 09:02] LABS: Chloride* 102 mmol/L (96-114)
[2025-02-19 09:03] LABS: Albumin* 3.2 g/dL (3.3-5.0); Potassium* 3.6 mmol/L (3.6-5.1); Sodium* 134 mmol/L (135-149)
[2025-02-19 09:06] LABS: Alanine Aminotransferase* 17 U/L (4-50); Aspartate Amino Transferase* 39 U/L (12-35); Blood Urea Nitrogen* 11 mg/dL (7-30); Creatinine* 0.7 mg/dL (0.5-1.5); Est. Creatinine Clearance* 67.90; Estimated Glomerular Filt Rate 95 ml/min
[2025-02-19 09:07] LABS: Alkaline Phosphatase* 78 U/L (40-150); Anion Gap 4 mEq/L (7-15); Bilirubin Total* 0.7 mg/dL (0.1-1.5); Calcium* 8.7 mg/dL (8.4-10.6); Carbon Dioxide* 28 mmol/L (20-32); Glucose* 115 mg/dL (60-115); Total Protein* 6.4 g/dL (6.0-8.3)
[2025-02-19] MEDS: APIXABAN 5 MG TABLET PO ×2 (09:19→20:22)
[2025-02-19] MEDS: OMEPRAZOLE 20 MG CAPSULE DR 40 MG PO (09:19)
[2025-02-19] MEDS: ACETAMINOPHEN 500 MG TABLET 1000 MG PO ×3 (09:19→20:22)
[2025-02-19] MEDS: AMLODIPINE 5 MG TABLET PO (09:19)
[2025-02-19 09:23] LABS: Procalcitonin* 0.12 ng/mL (<0.50)
[2025-02-19] MEDS: SODIUM CHLORIDE 0.9 % (FLUSH) 10 ML SYRINGE 5 ML IVF ×2 (09:31→20:22)
[2025-02-19] MEDS: SENNOSIDES/DOCUSATE TABLET PO (09:32)
[2025-02-19] MEDS: CARBOXYMETHYLCELLULOSE (REFRESH PLUS) TEARS 1 DROP EYE-BOTH ×2 (16:00→18:55)
--- NOTE | 2025-02-19 19:20 | PC.NURSE ---
[id number]: Pt is AOx4. VSS. Afebrile. Pt is pleasant, moves IND in room. AMB in hallway. has been bedside and support ; is active in his care. Unremarkable changes this shift. General malaise. L left and hip wounds open to air. No redness or swelling. Reported dry eyes; PRN drops given. See EMAR.
[2025-02-19] MEDS: ZOLPIDEM 5 MG TABLET 2.5 MG PO (22:56)
[2025-02-20 02:31] VITALS: BP 138/86; PULSE 92; RESP 16; TEMP 36.6; O2SAT 94
[2025-02-20 06:13] LABS: Hematocrit 27.3 % (37.0-53.0); Hemoglobin* 8.6 gm/dL (13.5-17.5); Immature Granulocytes Abs Auto 0.06 K/uL (0.00-0.30); Immature Granulocytes Pct Auto 1.0 %; Mean Corpuscular HGB Conc 32 gm/dL (32-36); Mean Corpuscular Hemoglobin 27 pg (26-34); Mean Corpuscular Volume 85 fL (80-100); RDW Coefficient of Variation % 17.4 % (11.5-15.5); Red Blood Count 3.20 m/uL (4.30-5.90); White Blood Count* 6.15 K/uL (4.50-11.00)
[2025-02-20 06:22] LABS: Lymphocytes Absolute Auto 0.50 K/uL (0.90-2.90); Slide Review Reflex No
[2025-02-20 06:32] LABS: Albumin* 3.1 g/dL (3.3-5.0); Chloride* 104 mmol/L (96-114); Potassium* 3.7 mmol/L (3.6-5.1); Sodium* 136 mmol/L (135-149)
[2025-02-20 06:35] LABS: Alanine Aminotransferase* 17 U/L (4-50); Alkaline Phosphatase* 73 U/L (40-150); Anion Gap 4 mEq/L (7-15); Aspartate Amino Transferase* 38 U/L (12-35); Bilirubin Total* 0.6 mg/dL (0.1-1.5); Blood Urea Nitrogen* 14 mg/dL (7-30); Carbon Dioxide* 28 mmol/L (20-32); Creatinine* 0.8 mg/dL (0.5-1.5); Est. Creatinine Clearance* 67.90; Estimated Glomerular Filt Rate 91 ml/min; Total Protein* 6.1 g/dL (6.0-8.3)
[2025-02-20 06:36] LABS: Calcium* 8.7 mg/dL (8.4-10.6); Glucose* 106 mg/dL (60-115)
[2025-02-20] MEDS: OMEPRAZOLE 20 MG CAPSULE DR 40 MG PO (06:45)
[2025-02-20 06:50] LABS: Procalcitonin* 0.09 ng/mL (<0.50)
[2025-02-20 07:00] VITALS: BP 139/86; PULSE 96; RESP 18; TEMP 36.8; O2SAT 96
--- NOTE | 2025-02-20 07:01 | PC.NURSE ---
Shift note: Patient alert and oriented. Ambulated independent in room and hallway. Pain level rated at 6/10 and 1x oxycodone requested and was given. No fever recorded and other vital signs stable. Tolerated regular diet well. Takes pills whole with water. Ambien 2.5mg given for chronic insomnia but pt reported it had minimal effect. Incision sites intact, clean and dry. No redness, discharges, or warm noted.
[2025-02-20 07:51] VITALS: PULSE 91
[2025-02-20] MEDS: ACETAMINOPHEN 500 MG TABLET 1000 MG PO (08:03)
[2025-02-20] MEDS: APIXABAN 5 MG TABLET PO (08:04)
[2025-02-20] MEDS: AMLODIPINE 5 MG TABLET PO (08:04)
[2025-02-20] MEDS: SODIUM CHLORIDE 0.9 % (FLUSH) 10 ML SYRINGE 5 ML IVF (08:06)
[2025-02-20] MEDS: CARBOXYMETHYLCELLULOSE (REFRESH PLUS) TEARS 1 DROP EYE-BOTH (08:10)
--- NOTE | 2025-02-20 13:07 | PC.NURSE ---
pt alert and oriented, saline lock removed. discharged home with at 934a. discharge instructions given, all belonging taken. no further questions asked. pt left the floor in wheelchair.
--- NOTE | 2025-02-20 18:12 | P.DS_ITS ---
DS: Providers Provider Date Seen: 02/20/25 Date of admission: 02/19/25 00:53 Primary care physician: Adrien Hernandez MD Admitting Clinician: Benito Holden MD Consults: 02/19/25 01:20 Consult to Physical Therapy [CONS] Routine Comment: Reason(s) for PT Consult:: Inability to Mobilize Any Restrictions?:: Partial Wt Bearing Attending Physician on discharge: Joseline Zheng MD [facility] Date of Discharge: 02/20/25 DS: Diagnosis Discharge Diagnosis (1) Fever: Status: Acute Problem details: -reported at home; not observed here. -imaging and wounds are reassuring. -no symptoms of URI or lower resp infection. -no antibiotics currently -incentive spirometer encouraged -will discharge in am if continues to be afebrile. (2) ABLA (acute blood loss anemia): Status: Acute Problem details: hgb down from 12.5 pre-op to 8.6. not transfused. moderate symptoms. ok to discharge and follow as an outpatient. (3) S/P total left hip arthroplasty: Status: Acute Problem details: Dr. Humphries, 02/16/2025 Post-op Day 4 (4) Lipoma of left thigh: Status: Acute Problem details: -mass measured 13 x 7 x 6 cm -anterior thigh -surgically excised february 2025 -[place] lipomatous tumor, MDM2 study pending per path DS: Summary Hospital Course Hospital Course: QUESTIONS TO ASK AT FOLLOW-UP: 1. However he been feeling. Anymore fevers? He was admitted with a reported fever at home of 101. Our workup at the [facility] an inpatient team was negative for evidence of infection. We suspected atelectasis and some mild anxi ety. 2. Postop anemia/ABLA - this may be compounding his anxiety and fatigue. No transfusion indicated. Should be followed as an outpatient if still symptomatic. BRIEF HOSPITAL COURSE: Patient was admitted for two days. Synopsis of acute inpatient issues are outlined above. Chronic medical conditions with notable findings outlined above. He was never on antibiotics. All of his cultures remained negative. No documented fevers. DISCHARGE MEDICATIONS: See Reconciled list - SIGNIFICANT CHANGES: No changes Specific instructions to the patient and follow-up are outlined below. REVIEW OF SYSTEMS No new chest pain or dyspnea Pain controlled No voiding difficulties no document Tolerating diet challenge PHYSICAL EXAM: CONSTITUTIONAL: Conversive, good historian. A/O. Knows setting and context. GENERAL: Well-developed and above ideal body weight, in no respiratory distress. VITAL SIGNS: see record. HEENT: Sclerae are anicteric. No petechiae. CARDIAC: rhythm is regular. There is no S3 or rub. No harsh murmurs. Extremities show trace edema with symmetrical pulses. PULM: good air entry with no wheeze. NEURO: Speech is fluent. A brief neurologic exam is negative. MSK: Surgical wounds are intact, dry. No erythema. SKIN: No rashes, petechiae, concerning changes PSYCHIATRIC: Euthymic. DISPOSITION: Home with Time spent on discharge 37 minutes. Status at Discharge Functional status at discharge: uses cane/walker Overall status at discharge: patient is progressing back to baseline Time Spent with Patient Time attestation: Total time spent providing and/or coordinating discharge services: Time spent: Greater than 30 minutes Exam Const: Vital Signs, click to edit/add: Vital Signs - 24 hr 02/19/25 19:00 02/19/25 22:53 02/19/25 22:53 Temperature 97.6 F 98.4 F Pulse Rate Pulse Rate [Pulse Oximeter] 96 92 92 Respiratory Rate 16 16 16 Blood Pressure [Le ft Arm] 137/76 115/74 Pulse Oximetry 98 98 Oxygen Delivery Me od Room Air Room Air 02/19/25 23:00 02/20/25 02:31 02/20/25 07:00 Temperature 97.9 F 98.3 F Pulse Rate 87 Pulse Rate [Pulse Oximeter] 92 96 Respiratory Rate 16 18 Blood Pressure [Le ft Arm] 138/86 139/86 Pulse Oximetry 94 96 Oxygen Delivery Me thod Room Air Room Air 02/20/25 07:51 Temperature Pulse Rate 91 Pulse Rate [Pulse Oximeter] Respiratory Rate Blood Pressure [Le ft Arm] Pulse Oximetry Oxygen Delivery Me thod DS: Data Data Completed and Pending Labs on day of discharge: Labs from last 24 hours 02/20/25 05:51 WBC 6.15 RBC 3.20 L Hgb 8.6 L Hct 27.3 L MCV 85 MCH 27 MCHC 32 RDW Coeff of Gin 17.4 H Plt Count 212 Neut % (Auto) 73.1 H Lymph % (Auto) 7.5 L Elbert % (Auto) 11.4 H Eos % (Auto) 6.7 Baso % (Auto) 0.3 Neut # (Auto) 4.50 Lymph # (Auto) 0.50 L Elbert # (Auto) 0.70 Eos # (Auto) 0.41 Baso # (Auto) 0.02 Abs Immat Gran (auto) 0.06 Imm/Tot Granulo (auto) 1.0 Sodium 136 Potassium 3.7 Chloride 104 Carbon Dioxide 28 Anion Gap 4 L BUN 14 Creatinine 0.8 Estimated Creat Clear 67.90 Estimated GFR 91 Glucose 106 Calcium 8.7 Total Bilirubin 0.6 AST 38 H ALT 17 Alkaline Phosphatase 73 C-Reactive Protein 19.8 H Total Protein 6.1 Albumin 3.1 L Procalcitonin 0.09 Preliminary micro results at discharge 02/18/25 21:36 Blood Culture - Preliminary Blood NO GROWTH AFTER 24 HOURS 02/18/25 21:50 Blood Culture - Preliminary Blood NO GROWTH AFTER 24 HOURS Discharge Plan Discharge Disposition: Home, Self-Care Date of Admission: 02/19/25 00:53 Attending Provider on Discharge: Joseline Zheng Primary Care Provider: Adrien Hernandez Condition: Improved Anticipated Discharge Date/Time: 02/20/25 08:06 Discharge Medications: Continued peg 400-propylene glycol 0.4-0.3 % drops,gel 1 drp ophthalmic (eye) QID PRN Repatha SureClick 140 mg/mL pen injector 140 mg subcut Q14D amlodipine 5 mg tablet 5 mg PO DAILY eszopiclone 1 mg tablet 2 mg PO HS omeprazole 40 mg capsule,delayed release(DR/EC) 40 mg PO DAILY Eliquis 5 mg tablet 5 mg PO BID Xyosted 75 mg/0.5 mL auto-injector 75 mg subcut Q7D acetaminophen 500 mg capsule 1,000 mg PO Q6H PRN sennosides-docusate sodium [Senna-S] 8.6-50 mg tablet 1 - 4 tab-cap PO BID PRN (Reason: constipation) Qty: 60 0RF Rx Instructions: Hold medication if experiencing loose stools. oxycodone 5 mg tablet 2.5 - 5 mg PO Q4-6H MDD 6 PRN (Reason: pain) Qty: 42 0RF Rx Instructions: Take as needed for postop pain: 2.5mg mild pain, 5mg moderate-severe pain; wean as tolerated. Held celecoxib 100 mg capsule 100 mg PO DAILY Hold Instructions: Resume on 03/21/25. Discharge Orders: Discharge Order (Routine); Ordered 02/20/25 Ordered By: Joseline Zheng Patient Education: Fever in Adults (GEN) Additional Instructions: -keep your ortho and PT appointments -no medication changes; continue Eliquis until you see Dr. Hernandez -you are anemic (this is expected after a hip replacement) and that maybe contributing to how you feel. Eat and drink healthy foods; focus on good sources of protein, and this will improve on its own without treatment Activity Level: Activity as Tolerated Discharge Diet: Regular Follow Up Appointments: Adrien Hernandez MD [Primary Care Provider, Family Practice] - 03/24/25 10:15 am Referral Note: [facility] for follow up with PCP to discuss eliquis and celebrex Forms: Patient Belongings, MyHealth Info Instructions
== END 2025-02-20 09:35 | disposition home or self-care (01) ==
LOC: ED 02-19 00:27 → MEDSURG 02-19 00:54
PROVIDERS: Family Medicine; Admitting Provider Student in an Organized Health Care Education/Training Program; Emergency Provider Emergency Medicine; PCP Surgery; Visit Provider Student in an Organized Health Care Education/Training Program
DX: R50.9 Fever, unspecified (principal); D62 Acute posthemorrhagic anemia; D17.24 Benign lipomatous neoplasm of skin and subcutaneous tissue of left leg; Z96.642 Presence of left artificial hip joint; Z79.01 Long term (current) use of anticoagulants
CPT/HCPCS: 36415; 71046; 71275; 74177; 80048; 80053; 81001; 83605; 84145; 85025; 86140; 87040; 87631; 93005; 93970; 96374; 97110; 97161; 99283; 99285; A9270; G0378; J2470; J7030; Q9967

== ENCOUNTER 2025-04-04 13:45 | Outpatient (CLI) | payer MEDICARE, OTHER, SELFPAY | END 2025-04-04 13:46 | disposition home or self-care (01) | LOC: CT 13:46 | PROVIDERS: PCP Surgery; Visit Provider Orthopaedic Surgery Sports Medicine | DX: M19.012 Primary osteoarthritis, left shoulder (principal); Z01.818 Encounter for other preprocedural examination | CPT/HCPCS: 73200 ==

== ENCOUNTER 2025-04-25 08:15 | Outpatient (RCR) | payer MEDICARE, OTHER, SELFPAY ==
--- NOTE | 2025-02-24 14:47 | PT.OPEX ---
PT [place] Outpatient Eval PT [facility] Outpatient Eval Start: 02/24/25 10:26 Freq: Status: Active Protocol: Document 02/24/25 10:26 YUSUF (Rec: 02/24/25 14:46 YUSUF [id number]) E-signed By Ngozi Mcneil PT Physical Therapy Outpatient Evaluation Insurance Information Recert Due Date 05/24/25 Insurance Name Medicare B Medical Diagnosis SEVERE OA S/P LEFT JETHRO ANTERIOR APPROACH 02/16/25 Treating Diagnosis LEFT HIP PAIN LEFT HIP WEAKNESS LEFT HIP STIFFNESS Referring MD PAVON Subjective Preferred Name SHANICE Subjective PATIENT REPORTS A LONG H/O HIP PAIN THAT PROGRESSIVELY WORSENED UNTIL HE NEEDED TO MAKE THE DECISION TO HAVE IT REPLACED. 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 HE HAS BEEN WEANING HIMSELF OFF PAIN MEDICATION AND IS TAKING ONLY TYLENOL AT THIS POINT BUT HIS PAIN IS POORLY MANAGED. HE ADMITS TO PREVIOUS ALCOHOL ADDICTION AND IS IN FEAR OF ADDITION TO PAIN MEDICATIONS. HIS GOAL IS TO HEAL AND RETURN TO [place]. Pain Comments -12/14 Date of Next 03/01/25 Physician Visit Date of Surgery (If 02/16/25 applicable) Current Work Status Retired Precautions Treatment PAST MEDICAL/SURGICAL HISTORY: Precautions/ -THE PATIENT HAS A COMPLEX MEDICAL AND SURGICAL HISTORY Contraindications , INCLUDING A QUADRICEPS TENDON REPAIR PERFORMED ON JULY 21, 2023, AND A TIBIOTALAR-CALCANEAL FUSION WITH ANKLE REPLACEMENT IN NOVEMBER 2022. SHE UNDERWENT A RIGHT BICEPS REPAIR APPROXIMATELY 15 YEARS AGO AND HAS HAD RIGHT ELBOW SURGERIES IN BOTH 2003 AND 2017. SHE HAS A HISTORY OF ATRIAL FIBRILLATION AND RECEIVED A WATCHMAN DEVICE IN SEPTEMBER 2022. ADDITIONAL SURGICAL HISTORY INCLUDES A LEFT SHOULDER ARTHROSCOPY IN 2002 AND BILATERAL HAMMER TOE SURGERIES. -HIS MEDICAL HISTORY IS SIGNIFICANT FOR GASTROESOPHAGEAL REFLUX DISEASE (GERD), DIVERTICULITIS, MULTIJOINT OSTEOARTHRITIS, CHRONIC ATRIAL FIBRILLATION , HYPERTENSION, CHRONIC CONGESTIVE HEART FAILURE, AND SARCOIDOSIS. SHE ALSO HAS A REMOTE HISTORY OF CANCER DIAGNOSED IN 2014 AND UNDERWENT A PROSTATECTOMY FOR PROSTATE CANCER. NOTABLY, SHE HAS ASYMMETRIC PUPILS SECONDARY TO A GOLF BALL TRAUMA SUSTAINED IN 2019. Weight Bearing Weight Bear as Tolerated Status Therapy Limitations/ Other Medical Problem Systems Review Objective Other/Pertinent 02/24/25: SUPINE AROM 70 HIP FLEX, 12 HIP ABD; INCISION Objective IS ABSENT OF S/S OF INFECTION BUT RATHER PROXIMAL REDNESS D/T RUB OF HIS PANTS. MIN ANTALGIC GAIT USING SPC FOR LIMITED AMB Assessment Assessment/ PATIENT IS A [address] PAVON STATUS POST Impression LEFT TOTAL HIP ARTHROPLASTY (JETHRO) ANTERIOR APPROACH ON 02/16/2025, WITH A LARGE LIPOMA REMOVED FROM THE LEFT QUADRICEPS DURING THE PROCEDURE. CURRENTLY, IN SUPINE POSITION, ACTIVE RANGE OF MOTION MEASURES 70 DEGREES OF HIP FLEXION AND 12 DEGREES OF HIP ABDUCTION. PATIENT REPORTS MODERATE SORENESS RATED AT 6/10 AND PAIN AT 4/ 10. HE IS ACTIVELY ATTEMPTING TO WEAN OFF NARCOTIC PAIN MEDICATION DUE TO A HISTORY OF ALCOHOL DEPENDENCE AND FEAR OF ADDICTION. -FUNCTIONALLY, PATIENT IS AMBULATING WITH A SINGLE POINT CANE (SPC) AND DEMONSTRATES A MINIMALLY ANTALGIC GAIT. HIS PATIENT CENTERED GOALS INCLUDE RETURNING TO [place] AND PARTICIPATING IN PEER AND FAMILY-CENTERED ACTIVITIES ACROSS VARIED TERRAIN. -PATIENT IS A GOOD CANDIDATE FOR SKILLED PHYSICAL THERAPY TO ADDRESS AFOREMENTIONED DEFICITS. INTERVENTION IS NECESSARY BY WAY OF THERAPEUTIC EXERCISE, MANUAL THERAPY, NEUROMUSCULAR RE-EDUCATION, MODALITIES FOR SYMPTOM MGMT, STABILIZATION/ PROPRIOCEPTION, PATIENT EDUCATION, DRY NEEDLING PLEASE REFER TO APPROPRIATE SECTION WITHIN THIS EVALUATION FOR COMPLETE LIST OF GOALS AND PLAN OF CARE. DISCHARGE PLAN AND CRITERIA IS FOR PATIENT TO ACHIEVE THE GOALS LISTED BELOW OR UNTIL MAX POTENTIAL MET. PATIENT VERBALIZED UNDERSTANDING AND AGREEABLE TO POC, FREQ, AND GOALS Primary Functional TRANSFERS, GT ON A VARIETY OF SURFACES, STAIRS, Limitations BENDING , STOOPING, SQUATTING Plan of Care Rehabilitation Good Potential Physical Therapy SHORT-TERM GOALS (WITHIN 2?4 WEEKS): Goals -IMPROVE ACTIVE HIP FLEXION TO =90 DEGREES IN SUPINE -REDUCE PAIN LEVEL TO =2/10 WITH FUNCTIONAL ACTIVITY -TRANSITION FROM SPC TO INDEPENDENT AMBULATION ON LEVEL SURFACES -INITIATE PARTICIPATION IN MODIFIED GOLF-RELATED MOVEMENTS SUCH PUTTING AND SHORT SHOTS -INCREASE TOLERANCE TO THERAPEUTIC EXERCISE WITH MINIMAL SORENESS -CONTINUE TO WEAN OFF NARCOTIC MEDICATION SAFELY WITH MEDICAL GUIDANCE LONG-TERM GOALS (WITHIN 8-12 WEEKS): -ACHIEVE FUNCTIONAL HIP ROM TO SUPPORT IADL'S, COMMUNITY INTERACTION, GOLF SWING AND TERRAIN NAVIGATION -DEMONSTRATE INDEPENDENT AMBULATION ON UNEVEN SURFACES WITHOUT DEVIATION -RETURN TO PARTICIPATION IN PEER AND FAMILY-CENTERED ACTIVITIES WITHOUT LIMITATION -MAINTAIN PAIN LEVEL =<1/10 DURING DAILY AND RECREATIONAL TASKS -IMPROVE OVERALL LOWER EXTREMITY STRENGTH AND ENDURANCE TO SUPPORT SAFE MOBILITY -COMPLETE HOME EXERCISE PROGRAM INDEPENDENTLY WITH GOOD FORM AND COMPLIANCE Coordination/ Referral Source Communication With Treatment Plan/ Dry Needling,Electrical Stimulation,Gait Training,Heat, Direct Interventions Ice/Cold/Vasopneumatic,Joint Mobilization,Manual Therapy,Neuromuscular Re-ed,Self-Care/Home Management, Therapeutic Activities,Therapeutic Exercises,Ultrasound Patient Will Be Completion of LTG(s),Independent w/HEP Discharged From Therapy Evaluation Billing Untimed Code 20 Treatment Minutes PT Eval No Charge No Complexity Low Certification Information Initial 02/24/25 Certification Date Ending Certification 05/24/25 Date Provider Signature Yes Required Provider Signature POC & Medical Necessity Shows Agreement With Physician NPI Number Write NPI# Here Physician Comment/ : Change Physician Signature Please Sign/Date Here & Date Requested
--- NOTE | 2025-02-24 16:30 | PT.OPEX ---
PT [place] Outpatient Eval PT [facility] Outpatient Eval Start: 02/24/25 10:26 Freq: Status: Active Protocol: Document 02/24/25 10:26 YUSUF (Rec: 02/24/25 14:46 YUSUF [id number]) E-signed By Ngozi Mcneil PT Physical Therapy Outpatient Evaluation Insurance Information Recert Due Date 05/24/25 Insurance Name Medicare B Medical Diagnosis SEVERE OA S/P LEFT JETHRO ANTERIOR APPROACH 02/16/25 Treating Diagnosis LEFT HIP PAIN LEFT HIP WEAKNESS LEFT HIP STIFFNESS Referring MD PAVON Subjective Preferred Name SHANICE Subjective PATIENT REPORTS A LONG H/O HIP PAIN THAT PROGRESSIVELY WORSENED UNTIL HE NEEDED TO MAKE THE DECISION TO HAVE IT REPLACED. 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 HE HAS BEEN WEANING HIMSELF OFF PAIN MEDICATION AND IS TAKING ONLY TYLENOL AT THIS POINT BUT HIS PAIN IS POORLY MANAGED. HE ADMITS TO PREVIOUS ALCOHOL ADDICTION AND IS IN FEAR OF ADDITION TO PAIN MEDICATIONS. HIS GOAL IS TO HEAL AND RETURN TO [place]. Pain Comments -12/14 Date of Next 03/01/25 Physician Visit Date of Surgery (If 02/16/25 applicable) Current Work Status Retired Precautions Treatment PAST MEDICAL/SURGICAL HISTORY: Precautions/ -THE PATIENT HAS A COMPLEX MEDICAL AND SURGICAL HISTORY Contraindications , INCLUDING A QUADRICEPS TENDON REPAIR PERFORMED ON JULY 21, 2023, AND A TIBIOTALAR-CALCANEAL FUSION WITH ANKLE REPLACEMENT IN NOVEMBER 2022. SHE UNDERWENT A RIGHT BICEPS REPAIR APPROXIMATELY 15 YEARS AGO AND HAS HAD RIGHT ELBOW SURGERIES IN BOTH 2003 AND 2017. SHE HAS A HISTORY OF ATRIAL FIBRILLATION AND RECEIVED A WATCHMAN DEVICE IN SEPTEMBER 2022. ADDITIONAL SURGICAL HISTORY INCLUDES A LEFT SHOULDER ARTHROSCOPY IN 2002 AND BILATERAL HAMMER TOE SURGERIES. -HIS MEDICAL HISTORY IS SIGNIFICANT FOR GASTROESOPHAGEAL REFLUX DISEASE (GERD), DIVERTICULITIS, MULTIJOINT OSTEOARTHRITIS, CHRONIC ATRIAL FIBRILLATION , HYPERTENSION, CHRONIC CONGESTIVE HEART FAILURE, AND SARCOIDOSIS. SHE ALSO HAS A REMOTE HISTORY OF CANCER DIAGNOSED IN 2014 AND UNDERWENT A PROSTATECTOMY FOR PROSTATE CANCER. NOTABLY, SHE HAS ASYMMETRIC PUPILS SECONDARY TO A GOLF BALL TRAUMA SUSTAINED IN 2019. Weight Bearing Weight Bear as Tolerated Status Therapy Limitations/ Other Medical Problem Systems Review Objective Other/Pertinent 02/24/25: SUPINE AROM 70 HIP FLEX, 12HIP ABD; INCISION Objective IS ABSENT OF S/S OF INFECTION BUT RATHER PROXIMAL REDNESS D/T RUB OF HIS PANTS. MIN ANTALGIC GAIT USING SPC FOR LIMITED AMB Functional Test [id number] Performed & Score Assessment Assessment/ PATIENT IS A [address] PAVON STATUS POST Impression LEFT TOTAL HIP ARTHROPLASTY (JETHRO) ANTERIOR APPROACH ON 02/16/2025, WITH A LARGE LIPOMA REMOVED FROM THE LEFT QUADRICEPS DURING THE PROCEDURE. CURRENTLY, IN SUPINE POSITION, ACTIVE RANGE OF MOTION MEASURES 70 DEGREES OF HIP FLEXION AND 12 DEGREES OF HIP ABDUCTION. PATIENT REPORTS MODERATE SORENESS RATED AT 6/10 AND PAIN AT 4/ 10. HE IS ACTIVELY ATTEMPTING TO WEAN OFF NARCOTIC PAIN MEDICATION DUE TO A HISTORY OF ALCOHOL DEPENDENCE AND FEAR OF ADDICTION. -FUNCTIONALLY, PATIENT IS AMBULATING WITH A SINGLE POINT CANE (SPC) AND DEMONSTRATES A MINIMALLY ANTALGIC GAIT. HIS PATIENT CENTERED GOALS INCLUDE RETURNING TO [place] AND PARTICIPATING IN PEER AND FAMILY-CENTERED ACTIVITIES ACROSS VARIED TERRAIN. -PATIENT IS A GOOD CANDIDATE FOR SKILLED PHYSICAL THERAPY TO ADDRESS AFOREMENTIONED DEFICITS. INTERVENTION IS NECESSARY BY WAY OF THERAPEUTIC EXERCISE, MANUAL THERAPY, NEUROMUSCULAR RE-EDUCATION, MODALITIES FOR SYMPTOM MGMT, STABILIZATION/ PROPRIOCEPTION, PATIENT EDUCATION, DRY NEEDLING PLEASE REFER TO APPROPRIATE SECTION WITHIN THIS EVALUATION FOR COMPLETE LIST OF GOALS AND PLAN OF CARE. DISCHARGE PLAN AND CRITERIA IS FOR PATIENT TO ACHIEVE THE GOALS LISTED BELOW OR UNTIL MAX POTENTIAL MET. PATIENT VERBALIZED UNDERSTANDING AND AGREEABLE TO POC, FREQ, AND GOALS Primary Functional TRANSFERS, GT ON A VARIETY OF SURFACES, STAIRS, Limitations BENDING , STOOPING, SQUATTING Plan of Care Rehabilitation Good Potential Physical Therapy SHORT-TERM GOALS (WITHIN 2?4 WEEKS): Goals -IMPROVE ACTIVE HIP FLEXION TO =90 DEGREES IN SUPINE -REDUCE PAIN LEVEL TO =<2/10 WITH FUNCTIONAL ACTIVITY -TRANSITION FROM SPC TO INDEPENDENT AMBULATION ON LEVEL SURFACES -INITIATE PARTICIPATION IN MODIFIED GOLF-RELATED MOVEMENTS SUCH PUTTING AND SHORT SHOTS -INCREASE TOLERANCE TO THERAPEUTIC EXERCISE WITH MINIMAL SORENESS -CONTINUE TO WEAN OFF NARCOTIC MEDICATION SAFELY WITH MEDICAL GUIDANCE LONG-TERM GOALS (WITHIN 8-12 WEEKS): -ACHIEVE FUNCTIONAL HIP ROM TO SUPPORT IADL'S, COMMUNITY INTERACTION, GOLF SWING AND TERRAIN NAVIGATION -DEMONSTRATE INDEPENDENT AMBULATION ON UNEVEN SURFACES WITHOUT DEVIATION -RETURN TO PARTICIPATION IN PEER AND FAMILY-CENTERED ACTIVITIES WITHOUT LIMITATION -MAINTAIN PAIN LEVEL =<1/10 DURING DAILY AND RECREATIONAL TASKS -IMPROVE OVERALL LOWER EXTREMITY STRENGTH AND ENDURANCE TO SUPPORT SAFE MOBILITY -COMPLETE HOME EXERCISE PROGRAM INDEPENDENTLY WITH GOOD FORM AND COMPLIANCE Coordination/ Referral Source Communication With Treatment Plan/ Dry Needling,Electrical Stimulation,Gait Training,Heat, Direct Interventions Ice/Cold/Vasopneumatic,Joint Mobilization,Manual Therapy,Neuromuscular Re-ed,Self-Care/Home Management, Therapeutic Activities,Therapeutic Exercises,Ultrasound Patient Will Be Completion of LTG(s),Independent w/HEP Discharged From Therapy Evaluation Billing Untimed Code 20 Treatment Minutes PT Eval No Charge No Complexity Low Certification Information Initial 02/24/25 Certification Date Ending Certification 05/24/25 Date Provider Signature Yes Required Provider Signature POC & Medical Necessity Shows Agreement With Physician NPI Number Write NPI# Here Physician Comment/ : Change Physician Signature Please Sign/Date Here & Date Requested
== END 2025-05-02 13:25 | disposition home or self-care (01) ==
PROVIDERS: PCP Surgery; Visit Provider Orthopaedic Surgery Sports Medicine
DX: Z47.1 Aftercare following joint replacement surgery (principal); Z96.642 Presence of left artificial hip joint; M25.552 Pain in left hip; Z51.89 Encounter for other specified aftercare
CPT/HCPCS: 97032; 97110; 97161

== ENCOUNTER 2025-06-28 10:05 | Emergency (ER) | payer MEDICARE, OTHER, SELFPAY ==
--- OUTSIDE RECORDS SUMMARY | 2023-08-28 05:30 | XMS_ITS | Continuity of Care Document ---
Author Organization [facility] Address [address] [address] [place] [address] Phone Care Team Providers Care Bend Up Name Role Phone Mauricio Zheng MD Unavailable Unavailable Allergies, Adverse Reactions, Alerts Substance Reaction Status Criticality ATORVASTATIN CALCIUM Nausea/Vomiting Active No I nformation Medications Medication Instructions Dosage Effective Dates (start - stop) Status Comments aspirin 81 mg tablet,delayed release take 1 tablet by oral route every day 81 MG - Active betamethasone, augmented 0.05 % topical cream apply by topical route every day a thin layer to the affected area(s) ; do not exceed 50 grams per wk 0.00 - Active Lunesta 1 mg tablet take 1 tablet by oral route every day at bedtime 1 MG - Active omeprazole 40 mg capsule,delayed release take 1 capsule by oral route every day before a meal 40 MG - Active Repatha SureClick 140 mg/mL subcutaneous pen injector inject 1 milliliter by subcutaneous route every 2 weeks in the abdomen, thigh, or outer area of upper arm (rotate sites) 140 MG - Active Systane Hydration (PF) 0.4 %-0.3 % eye drops in a dropperette - Active Tylenol Extra Strength 500 mg tablet take 1 tablet by oral route every 6 hours as needed as needed 500 MG - Active sotalol 80 mg tablet take 1 tablet by oral route 2 times every day 80 MG - Active Xyosted 75 mg/0.5 mL subcutaneous auto-injector inject (75MG) by subcutaneous route every week in the abdomen 75 MG - Active amlodipine 5 mg tablet take 1 tablet by oral route every day 5 MG - Active EXCEDRIN TENSION HEADACHE (unknown strength) Take as directed Not Available - Active ferrous sulfate 325 mg (65 mg iron) tablet,delayed release take 1 tablet by oral route every day 325 MG - No Longer Active CELECOXIB (unknown strength) take 1 capsule by oral route every day Not Available - No Longer Active Eliquis 5 mg tablet take 2 tablet by oral route every day 10 MG - No Longer Active omeprazole 20 mg tablet,delayed release take 1 by Oral route every day 1 - No Longer Active Lunesta 3 mg tablet take 1 Tablet by oral route every day at bedtime 3 MG - No Longer Active Procedures Procedure Date Offic/outpt E&m Estab Low-mod 4 Small Bowel PillCam Capsule 1st Day Offic/outpt E&m New Mod-nm Advance Directives Directive Yes / No Effective Date File Name No Information Encounters Encounter Description Practice Location Reason(s) For Visit Diagnoses Date Provider Providers Copied on Encounter Offic/outpt E&m Estab Low-mod [facility], [address] [address], [place], [id number], [place] tel:[phone] [facility] GI Symptoms or Concerns (chief complaint) Incontinence of feces, unspecified fecal incontinence typeAbnormal bowel movement 4 Norm Martínez. [address] [facility], [place], [id number] , [place]. tel:[phone] Referring Provider: Referral Self, USE FOR SELF REFERRALS. [facility], [address] [address], [place], [id number], [place] tel:[phone] [facility] No Information 4 Josesito Willoughby. [address] [facility], [place], [id number] , [place]. tel: [phone] [facility], [address] [address], [place], [id number], [place] tel:[phone] [facility] Anemia, unspecified 1 Dena Valera. [address] [facility], [place], [id number] , [place]. tel: [phone] Referring Provider: Adrien Baig, [address] [place] [address], [address]. tel:[phone] [facility], [address] [address], [place], [id number], [place] tel:[phone] [facility] Anemia, unspecified type 1 Vandana Nunez. [address] [facility], [place], [id number] , [place]. tel: [phone] Referring Provider: Referral Self, USE FOR SELF REFERRALS. Offic/outpt E&m New Mod-hi [facility], [address] [address], [place], [id number], [place] tel:[phone] [facility] Comment (chief complaint) MelenaAnemia, unspecified typeHistory of migraine headachesHistory of atrial fibrillation 1 Vandana Nunez. [address] [facility], [place], [id number] , [place]. tel:[phone] Referring Provider: Referral Self, USE FOR SELF REFERRALS. [facility], [address] [address], [place], [id number], [place] tel:[phone] [facility] No Information 1 Leslee Silva. [address] [facility], [place], [place], [id number] , [place]. tel:[phone] Family History Family Member Type Diagnosis Age At Onset No Information Immunizations Vaccine Date Status Comments influenza, seasonal vaccine, quadrivalent, adjuvanted, 0.5mL dose, preservative free administered Note: [facility] bi-di rectional interface ; Source: Other Registry influenza, seasonal vaccine, quadrivalent, adjuvanted, 0.5mL dose, preservative free administered Note: [facility] bi-di rectional interface ; Source: Other Registry SARS-COV-2 (COVID-19) vaccin e, mRNA, spike protein, LNP, bivalent, preservative free, 30 mcg/0.3 mL dose, irwin-sucrose formulation administered Note: [facility] bi-direct ional interface ; Source: Other Registry SARS-COV-2 (COVID-19) vaccin e, mRNA, spike protein, LNP, preservative free, 30 mcg/0.3mL dose, irwin-sucrose formulation administered Note: [facility] C bi- directional interface ; Source: Other Registry influenza, seasonal vaccine, quadrivalent, adjuvanted, 0.5mL dose, preservative free administered Note: [facility] bi-di rectional interface ; Source: Other Registry SARS-COV-2 (COVID-19) [...] Other Registry influenza, seasonal vaccine, quadrivalent, adjuvanted, 0.5mL dose, preservative free administered Note: [facility] bi-di rectional interface ; Source: Other Registry influenza, seasonal [...] Registry Payers Payer name Insurance type Covered libertarian ID Authoriza tion(s) [employer] 16 [id number] Social History Type Description Quantity Date Captured Comments Alcohol Use Details No Caffeine Use Details Unknown Tobacco Use Status Current non-smoker Smoking Status undefined Non-Smoking Tobacco Use Details : No Details Available : No Details Available [id number] SexMale Vital Signs Date / Time: Height Weight BMI Pulse Rate Blood Pressure Temperature Respiratory Rate Body Surface Area Head Circumference Head Circ. Percentile Wt./Ramírez. Percentile BMI percentile Pulse Ox Inhaled Ox 11:22 AM 72.00 in 90.718 kg (200.00 lbs) 27.1 2 kg/m eter (2) 75 /min 138/82 mm[Hg] Chief Complaint And Reason For Visit From encounter dated '08/28/2023 11:30'. GI Symptoms or Concerns (chief complaint). Description: Patient is a 78-year-old gentleman who has been having difficulty with fecal incontinence causing skin irritation around the anus. He has been followed by a games dealer and treated with antifungal agent. He also describes some laser treatment to the skin. We have been asked to see him regarding the irregularity of bowel movements and the fecal incontinence which may be contributing to this. He describes having bowel movements twice daily. He states that he is only able to evacuate about 80 percent of his bowel movement. He does have small amounts of incontinence. He is unsure if this is liquid or solid. Recently he has tried to startMiraLax daily. He is noticed his stools are softer but not diarrheal. They still feel incomplete. He had a colonoscopy last done December 11, 2020. He had 1 small polyp in the ascending colon. He had diverticuli in the sigmoid and descending colon. Reason For Referral Reason For Referral No Information History Of Present Illness Encounter Date Complaint History Of Prese nt Illness GI Symptoms or Concerns Patient is a 78-year-old gentleman who has been having difficulty with fecal incontinence causing skin irritation around the anus. He has been followed by a games dealer and treated with antifungal agent. He also describes some laser treatment to the skin. We have been asked to see him regarding the irregularity of bowel movements and the fecal incontinence which may be contributing to this. He describes having bowel movements twice daily. He states that he is only able to evacuate about 80 percent of his bowel movement. He does have small amounts of incontinence. He is unsure if this is liquid or solid. Recently he has tried to start MiraLax daily. He is noticed his stools are softer but not diarrheal. They still feel incomplete. He had a colonoscopy last done December 11, 2020. He had 1 small polyp in the ascending colon. He had diverticuli in the sigmoid and descending colon. Comment This was a telev isit with [...] mation No Information Assessments Type Assessment Date assessment Incontinence of feces, unspecifi ed fecal incontinence type assessment Abnormal bowel movement 024 impression 1. Fecal incontinenc e. Colonoscopy done in 2020 did not show anything significant. Repeat colonoscopy not likely to be of benefit at this point. We will try to start fiber supplement as a bulking agent make stools easier to evacuate and more formed incomplete. I will have him start once daily and increase to 2 or 3 times daily as needed. If this fails then we will start Imodium starting at a half a tablet once daily. The goal We will be to make his bowel movements more formed and easier to clean afterward. Also this would make it less likely that he has incontinence. The dose of the Imodium could be increased slowly. lastly, we discussed pelvic floor testing if he continues to have incontinence of solid stool. Patient will make a follow-up appointment as needed. Patient Care Teams Name Effective Dates (start - stop) Status Members No Information
--- OUTSIDE RECORDS SUMMARY | 2025-06-28 10:10 | XMS_ITS | Clinical Summary ---
Author Organization [facility] Address [id number] [address] Care Team Providers Care Mysql Database Developer Name Role Phone Adrien Hernandez MD Primary Care Provider [phone] Source Comments You are receiving this document [...] for each transition of care or referral. [facility] Allergies No known active allergies Medications MedicationSigDispense QuantityRefillsLast FilledStart DateEnd DateStatus apixaban (ELIQUIS) 5 MG tablet Take 5 mg by mouth two times a day.Active gabapentin (NEURONTIN) 100 MG capsule Take 100 mg by mouth three times a day.Active eszopiclone (LUNESTA) 1 MG tablet Take 1 mg by mouth daily at bedtime.Active losartan (COZAAR) 50 MG tablet Take 50 mg by mouth daily.Active celecoxib (CELEBREX) 100 MG capsule Take 100 mg by mouth two times a day.Active terbinafine (LAMISIL) 250 MG tablet Take 1 Tablet by mouth daily. 30 Tablet Active ketoconazole (NIZORAL) 2 % cream Apply topically daily. 120 g Active triamcinolone acetonide (KENALOG) 0.1 % cream Apply to affected areas tid-qid prn 80 g Active amLODIPine (NORVASC) 5 MG tablet Take 5 mg by mouth.01/24/2020Active Testosterone Enanthate 75 MG/0.5ML SOAJ Inject subcutaneously.05/05/2020Active Tadalafil (CIALIS) 5 MG tablet Take 5 mg by mouth.02/16/2020Active omeprazole (PRILOSEC) 20 MG capsule Take 20 mg by mouth.02/03/2020Active oxybutynin (DITROPAN XL) 5 MG 24 hour release tablet Take 1 Tablet by mouth daily for 30 days. 30 Tablet 05/22/2020Active Active Problems No known active problems Social History Tobacco UseTypesPacks/DayYears UsedDateSmoking Tobacco: Never AssessedSex and Gender InformationValueDate RecordedSex Assigned at BirthNot on fileLegal Sex Male10/22/2014 10:58 AM CDTGender IdentityNot on fileSexual OrientationNot on file Plan of Treatment Health MaintenanceDue DateLast DoneCommentsHep C Screening (Preventive Services) 1945Medicare Annual Wellness Visit1945RSV Vaccine (1 - 1-dose 75+ series)2022OVID-19 Vaccine (3 - 2024- season)503/, 09/13/2020Influenza Vaccine (#1)/07/2019, 03/26/2019, 04/13/2018, Additional history existsDTaP/Tdap/Td Vaccine (5 - Tdap), 02/19/2013, 10/31/2006, Additional history existsPneumococcal Vaccine 50+ Yrs Pujjooeug59/21/2015, 06/11/2012HepA VaccineAged Out07/29/2017, 09/13/2011, 08/30/2011, Additional history existsNo longer eligible based on patient's age to complete this topicZoster/Shingles LdslivsVpjdmzhml66/28/2020, 05/24/2019, 08/02/2008HepB VaccineAged OutNo longer eligible based on patient's age to complete this topicHib VaccineAged OutNo longer eligible based on patient's age to complete this topicIPV (Polio) VaccineAged OutNo longer eligible based on patient's age to complete this topicMCV4 VaccineAged OutNo longer eligible based on patient's age to complete this topicMeningococcal B VaccineAged OutNo longer eligible based on patient's age to complete this topic Insurance Care Teams Team MemberRelationshipSpecialtyStart DateEnd Date Adrien Hernandez MD [address] [place] [address] [facility]
--- OUTSIDE RECORDS SUMMARY | 2025-06-28 10:10 | XMS_ITS | Data Portability ---
Author Organization [place] [facility], autoContract - [facility] Address [address] [place] [address] Assessment Encounter Date Assessment Date Assessment LastModified by Organization Details LastModified Time 10/14/2024 10/14/2024 ASSESSMENT: Patient is a good candidate for conservative care and the prognosis is for a favorable outcome thatachieves the patients' goals. We discussed etiology, activity [...] should not hesitate to contact our office. dkznltop1Hmh swycnuuhm96/10/2025 19:47:2804SSESSMENT: Patient is a good candidate for conservative care and the prognosis is for a favorable outcome thatachieves the patients' goals. We discussed etiology, activity [...] should not hesitate to contact our office. ecramNot ydpbgkbsa93/11/2025 14:11:5704SSESSMENT: Patient is a good candidate for conservative care and the prognosis is for a favorable outcome thatachieves the patients' goals. We discussed etiology, activity [...] should not hesitate to contact our office. ecramNot slqtgskvu76/14/2025 12:31:58 Plan of Treatment Reminders Order DateSubmit DateProviderLast Modified ByCarlitos DetailsLast Modified TimeDetailsAppointmentsNone recorded.LabNone recorded.ReferralNone recorded. ProceduresNone recorded.SurgeriesNone recorded.ImagingNone recorded.Medication OrdersNone recorded. Patient TargetsNo targets recorded. Patient InstructionsNo instructions recorded. Reason for Referral None Reported. Problems Name Problem SNOMED Code Status Onset Date Resolution Date Notes Provider Name and Address Organization Details Recorded Time Thoracic segmental dysfunction 826282537 Active 10/14 [facility] Lupillo Nirav [place] [address], [place], [address], [facility]10/14/2024 19:47:28Low back ouiw145303599Vdqkie84/10/2025 [facility] Lupillo Nirav [place] [address], [place], [address], [facility]10/14/2024 19:47:28Lumbar segmental kkgppjbavtz186795332 Vmaunz4210/14/2024Scsofia Lupillo Gastelum [place] [address] [place] [address], [place], [address], [facility]10/14/2024 19:47:28Somatic dysfunction of sacral spine 862070482Gtqqaa52/10/2025Baljit Lupillo Gastelum [place] [address] [place] [address], [place], [address], [facility]10/14/2024 19:47:28 Problem Notes None recorded. Procedures Surgical History Date Name Laterality Status Provider Name and Address Organization Details Recorded Time 10/18/2024 75555: Spinal manipulation, 3 to 4 regions completedEric Jesse Cabello DC [address] [place] [address], [place], [address], [facility]10/18/2024 12:31:580152722792: Spinal manipulation, 3 to 4 regionscompletedEric Jesse Cabello [place] [address] [place] [address], [place], [address], [facility]10/15/2024 14:11:5604711094977: Spinal manipulation, 3 to 4 regionscompletedScot Lupillo Gastelum DC [address] [place] [address], [place], [address], [facility]10/14/2024 19:47:58 Imaging Results None recorded. Procedure Notes None recorded. Medical Equipment None Reported. Vitals None Recorded Social History None recorded. Functional Status None recorded. Mental Status None recorded. Family History Nothing Reported. Medical History No medical history recorded. Past Encounters Encounter ID Performer Location Encounter Start Date Encounter Closed Date Diagnosis/Indication Diagnosis SNOMED-CT Code Diagnosis ICD10 Code Diagnosis IMO Codes Diagnosis Note [id number] [facility] [address] [place] [address] [place] [address] 10/14/2024 18:05:09 10/15/2024 11:21:19 Lumbar segmental dysfunction 670434089 M99.03 Low back fnkj411443470A63.50 Somatic dysfunction of sacral hflts761922185A18.04 Thoracic segmental ovqrakqdekc515521414W62.02 [id number] Allen Irineo, [facility] [address] [place] [address] 10/15/2024 11:03:45010/15/2024 15:27:54Lumbar segmental kgqtcvtxset997717494 M99.03 Low back mxca698291700B07.50 Somatic dysfunction of sacral hvpcc340426679N19.04 Thoracic segmental fgmklrdutot653763345X32.02 [id number] Allen Irineo, [facility] [place] [address] [place] [address] 10/18/2024 10:32:35010/18/2024 12:46:21Lumbar segmental xnxuqdowwqj400445110 M99.03 Low back otnv351048838R57.50 Somatic dysfunction of sacral ntgyf944111352Q04.04 Thoracic segmental iipamtetrdd248841207A71.02 Health Concerns Section Related Observation LastModified by Organization Detai ls LastModified Time None Recorded Concern Status LastModified by Organization Details LastModified Time None Recorded Advance Directives Directive None Recorded Payers Insurance Date Sequence Insurance Name Policy Number Policy Ramos Covered Member ID Ramos Member ID Guarantor Name 10/14/2024 2 MEDICA - PRIME SOLUTION (MED ICARE REPLACEMENT/ADVANTAGE - HMO) Chente Valencia [id number] MEDICARE [facility] [place] [id number] *SELF PAY*Chente Rubin Notes Date Note Type Note Provider Name and Address Organization Details Recorded Time 10/14/2024 text/html HPI - Lumbar SpineReported by PatientHPIFor location, patient reportsleft. For quality, patient reportsaching. For severity, patient reportsmoderate. For timing, patient reportsmorning. For aggravating factors, patient reportswalking,lift ing,carrying, andtwisting. For alleviating factors, patient reportsrest. Baljit Gastelum DC [address], [place], [address], [facility] 10/14/2024 19:48:10 10/15/2024 text/html HPI - Lumbar SpineReported by PatientHPIFor location, patient reportsleft. For quality, patient reportsaching. For severity, patient reportsmoderate. For timing, patient reportsmorning. For aggravating factors, patient reportswalking,lift ing,carrying, andtwisting. For alleviating factors, patient reportsrest. Stoney Cabello DC [address], [place], [address], [facility] 10/15/2024 14:13:36 10/18/2024 text/html HPI - Lumbar SpineReported by PatientHPIFor location, patient reportsleft. For quality, patient reportsaching. For severity, patient reportsmoderate. For timing, patient reportsmorning. For aggravating factors, patient reportswalking,lift ing,carrying, andtwisting. For alleviating factors, patient reportsrest. Stoney Cabello DC [address], [place], [address], [facility] 10/18/2024 12:33:30
--- OUTSIDE RECORDS SUMMARY | 2025-06-28 10:10 | XMS_ITS | Clinical Summary ---
Author Organization [facility] Address [address] [address] Phone Care Team Providers Care Ppa Teacher Name Role Phone Unavailable Primary Care Provider Unavailabl e Allergies Active AllergyReactionsCriticalityNoted DateCommentsAtorvastatinMuscle pain, QmfncfxHyv63/14/2016 Muscle pains with atorvastatin NcjkjsveqhTbkixTym17/05/2016RosuvastatinNausea TcliKgg0411/09/2015 Statin intolerance. Medications MedicationSigDispense QuantityRefillsLast FilledStart DateEnd DateStatus amLODIPine (Norvasc) 5 MG tablet 02/25/2023ctive sotalol (Betapace) 80 MG tablet 02/10/2023ctive evolocumab (Repatha) 140 MG/ML prefilled syringe injection Inject 140 mg under the skin.Active eszopiclone (Lunesta) 1 MG tablet Take 1 mg by mouth at bedtime.02/27/2023ctive polyethyl glycol-propyl glycol (Systane) 0.4-0.3 % ophthalmic gel Apply 1 Drop to eye two times a day.Active aspirin EC 81 MG tablet Take 81 mg by mouth one time a day.09/12/2022ctive augmented betamethasone dipropionate (Diprolene) 0.05 % ointment Active augmented betamethasone dipropionate (Diprolene) 0.05 % ointment 12/29/2022ctive celecoxib (CeleBREX) 100 MG capsule 08/14/2022ctive clindamycin (Clindagel) 1 % gel APPLY TOPICALLY TO THE AFFECTED AREA TWICE DAILY FOR 7 DAYSActive omeprazole (PriLOSEC) 20 MG delayed-release capsule TAKE 1 CAPSULE BY MOUTH EVERY DAY BEFORE A MEAL02/03/2020Active sotalol (Betapace) 80 MG tablet Take 40 mg by mouth every 12 hours.03/07/2022ctive Active Problems ProblemNoted DateDiagnosed DateCongenital spondylolysis, lumbosacral region InsomniaOsteoarthritis of right shoulder ortic lvdirkaleh73Osteopenia04/11/2019 04/02/2023 Overview (04/02/2023): On DEXA 04/2019 Nonrheumatic aortic valve nggozjzc25Sarcoidosis, lung Overview (04/02/2023): Recently diagnosed at [place] Paroxysmal atrial dutekbsumlbk68Thoracic aortic aneurysm without ixkozhb02 Overview (04/02/2023): 4.7 cm on echo 01/2020; CT recommended 01/2021 Prostate jvhbri89LVH (left ventricular hypertrophy)05/16/2014 04/02/2023denomatous colon polyp Overview (04/02/2023): Colonoscopy 09/2013 polyp repeat in 5 years Colonoscopy 07/2018 multiple polyps, repeat in 3 years Colonoscopy 12/2020 polyp, repeat in 5 years HTN (hypertension)12/28/Mixed qqrhorxjpinplf70 Social History Tobacco UseTypesPacks/DayYears UsedDateSmoking Tobacco: Never AssessedSex and Gender InformationValueDate RecordedSex Assigned at BirthNot on fileLegal Sex Male04/02/2023 1:44 PM CDTGender IdentityNot on fileSexual OrientationNot on file Last Filed Vital Signs Vital SignReadingTime TakenCommentsBlood Pressure--Pulse--Temperature-- Respiratory Rate--Oxygen Saturation--Inhaled Oxygen Concentration--Fcyqsn33.2 kg (201 lb 1 oz)04/02/2023 2:27 PM CZRHpkvqp847.9 cm (6')04/02/2023 2:27 PM CDTBody Mass Index27.27004/02/2023 2:27 PM CDT Plan of Treatment Health MaintenanceDue DateLast DoneCommentsMEDICARE AWV1PERTUSSIS (Standing Order)1966Pneumococcal Vaccine: 50+ yrs (Standing Order) (1 of 2 - PCV)1966Shingrix (Zoster recombinant) vaccine (Standing Order) (1 of 2) 1966TETANUS (Standing Order)1966RSV Vaccination (60+ yrs) (Abrysvo/Arexvy) (1 - 1-dose 75+ series)2COVID-19 Vaccine ( - 2024- season)2025Influenza Vaccine Seasonal (Standing Order) (#1)2025HPV Vaccine (Standing Order) (No Doses Required)CompletedHepatitis B Vaccine (Standing Order)Aged OutNo longer eligible based on patient's age to complete this topic Medical Devices ImplantedTypeAreaManufacturerDevice IdentifierShelf Expiration DateModel / Serial / LotWatchman Flx Closure DeviceN/A: [id number] / NA / NADescription:1.5/3T Max Spatial Gradient: 2500 gauss/cm No coil restrictions Normal Operating Mode Max whole body CARLOS: 2W/kg; whole body 3.2W/kg Scan Duration: 2W/kg whole body average CARLOS for 60min of continuous RF (a sequence or spbf-sd-yynt series/scans without breaks) [facility] MRI Department 04/13/23 Insurance * Guarantor: Chente RichAccohuma TypeRelation to PatientDate of BirthPhone Billing AddressPersonal/KoxpepFexl89 [address] [place] [address]
--- OUTSIDE RECORDS SUMMARY | 2025-06-28 10:10 | XMS_ITS | Data Portability ---
Author Organization [facility] [employer], [facility] Address [address] [address] Assessment No assessment recorded. Plan of Treatment Reminders Order DateSubmit DateProviderLast Modified ByOrganization DetailsLast Modified TimeDetailsAppointmentsNone recorded.LabNone recorded.ReferralNone recorded. ProceduresNone recorded.SurgeriesNone recorded.ImagingUS, lower extremity, kelujdwhmwl68bdepriest2Not kaikfjjjp51/18/2019 09:58:09XR, xjvsucij48bdepriest2Not dlijsdbme92/18/2019 09:58:09Medication OrdersNone recorded. Patient TargetsNo targets recorded. Patient Instructions Encounter Date Encounter Id Patient Instructions Last Modified By Organization Details Last Modified Time 08/19/2018 [id number] knee arthritis: care instructions qckeetd79 Not available 08/19/2018 13:50:30 shoulder pain: care maxftopllhyjzxwuwkw92Tjg jlljardgp38/13/2019 13:51:25 Reason for Referral None Reported. Results Created Date Observation Date Name Description Value Unit Range Abnormal Flag Note LastModifiedBy Organization Detail LastModifiedTime 08/20/2018 08/20/2018 MRI, shoulder, w/o contrast No observation recorded.BARCODENot Kqrwwvjpy64/14/2019 11:03:08/20/2018MRI, cervical spine, w/o contrastNo observation recorded.BARCODENot Keeezfvge65/14/2019 11:03:160MRI, cervical spine, w/o contrastNo observation recorded.BARCODENot Qkqxczepa23/14/2019 11:03:16 MRI, shoulder, w/o contrastNo observation recorded.BARCODE Not Qsgjmblgr13/14/2019 11:03:16 Result Notes None recorded. Medical Equipment None Reported. Allergies No known drug allergies Medications Name Sig Start Date Stop Date Status Note LastModified by Organization Details LastModified Time hydrocodone 5 mg-acetaminoph en 325 mg tablet Take 1 tablet every 6 hours by oral route as needed. 12/15/2018 activeNot AvailableNot AvailableNot Availablecephalexin 500 mg capsuleTake 4 capsules (total of 2g) po one hour prior to procedure. One time dose.11/12/2018 activeNot AvailableNot AvailableNot Availablediazepam 10 mg tabletTake 1 tablet(s) 30 mins PRIOR to appointment PRN and repeat as directed by physician. 11/12/2018activeNot AvailableNot AvailableNot Available Vitals None Recorded Social History None recorded. [...] Tendon Tear N Ulcers N Heart Attack ([place]) N Diabetes N Bleeding Disorder N Seizures/Epilepsy [...] ICD10 Code Diagnosis IMO Codes Diagnosis Note [id number] Maria De Jesus Barillas MD [facility] [address] [place] [address] 08/19/2018 11:55:17 08/24/2018 09:58:08 Osteoarthritis of knee 158756885 M17.0 Pain of shoulder awusge33166331Q92.519 Health Concerns Section Related Observation LastModified by Organization Detai ls LastModified Time None Recorded Concern Status LastModified by Organization Details LastModified Time None Recorded Advance Directives Directive None Recorded Payers Insurance Date Sequence Insurance Name Policy Number Policy Ramos Covered Member ID Ramos Member ID Guarantor Name 08/19/2018 1 *SELF PAY* Chente Valencia [id number] CHOICE - [place] [facility] CHO[place] PLUS (HMO)[id number] Chente Valencia [id number] Erik MEDICA CHOICE - [place] [facility] - CHOICE PLUS (POS)[id number] H [id number] Erik MEDICARE B-[place]: Cris [id number] Erik Rubin Notes Date Note Type Note Provider Name and Address Organization Details Recorded Time 08/19/2018 text/html See Dictated NoteReported by PatientSEE DICTATED NOTES Not Available [facility] 08/24/2018 09:19:31
--- OUTSIDE RECORDS SUMMARY | 2025-06-28 10:10 | XMS_ITS | Clinical Summary ---
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 Role Phone Adrien Hernandez MD Primary Care Provider [phone] Allergies Active AllergyReactionsCriticalityNoted DateCommentsAtorvastatinMuscle Pain (Myalgia)01/31/20178324UtcixxochmkfPluoxu08/28/8006FavewfrjocMszex28/28/2017Naproxen DmcqWum4101/31/2017 Medications MedicationSigDispense QuantityRefillsLast FilledStart DateEnd DateStatus clotrimazole-betamethasone (LOTRISONE) cream Indications:Tinea CorporisApply topically 2 times daily as needed (rash)Active omeprazole (PRILOSEC) [address] capsule Take 1 capsule by mouth every evening (at 18:00)Active Polyethyl Glycol-Propyl Glycol (SYSTANE OP) Place 1 drop into both eyes 2 times dailyActive acetaminophen (TYLENOL) 500 MG tablet Take 1-2 tablets by mouth every 6 hours as needed for mild painActive amLODIPine (NORVASC) 5 MG tablet Take 5 mg by mouth At Bedtime (at 22:30)Active Testosterone Enanthate (XYOSTED) 75 MG/0.5ML SOAJ Inject 75 mg Subcutaneous once a week (on Friday)Active ovewaho-oxtowxmyuebhp-vmlmyuuz (EXCEDRIN MIGRAINE) 250-250-65 MG tablet Take 1 tablet by mouth every 6 hours as needed for headachesActive eszopiclone (LUNESTA) 1 MG tablet Take 1 tablet by mouth At BedtimeActive sotalol (BETAPACE) 80 MG tablet Take 0.5 tablets by mouth 2 times daily (0.5 x 80 mg = 40 mg)Active augmented betamethasone dipropionate (DIPROLENE AF) 0.05 % external cream Apply topically 2 times daily as neededActive diclofenac (VOLTAREN) 1 % topical gel Apply 2 g topically 4 times daily as needed for moderate painActive evolocumab (REPATHA) 140 MG/ML prefilled syringe Inject 140 mg Subcutaneous every 14 daysActive clopidogrel (PLAVIX) 75 MG tablet Take 1 tablet by mouth dailyActive amoxicillin (AMOXIL) 500 MG capsule Take 4 capsules by mouth once as needed (1 hour prior to dental appointments 4 x 500 mg = 2,000 mg)Active aspirin 81 MG EC tablet Take 1 tablet (81 mg) by mouth daily Resume usual dose of aspirin after finishing increased dose prescribed after chcmolq1211/12/2022ctive aspirin (ASA) 81 MG EC tablet Indications:VTE ProphylaxisTake 1 tablet (81 mg) by mouth 2 times daily 60 tablet 11/12/2022ctive ondansetron (ZOFRAN ODT) 4 MG ODT tab Indications:S/P ankle fusionTake 1 tablet (4 mg) by mouth every 6 hours as needed for nausea or vomiting 15 tablet ctive oxyCODONE (ROXICODONE) 5 MG tablet Indications:S/P ankle fusionTake 1 tablet (5 mg) by mouth every 4 hours as needed for moderate pain 40 tablet 11/12/2022ctive senna-docusate (SENOKOT-S/PERICOLACE) 8.6-50 MG tablet Indications:S/P ankle fusionTake 1 tablet by mouth 2 times daily 40 tablet ctive Active Problems ProblemNoted DateDiagnosed DateS/P ankle yhouwj4211/11/2022S/P ankle joint omyvyxbdzbx96/31/2017 Social History Tobacco UseTypesPacks/DayYears UsedDateSmoking Tobacco: NeverSmokeless Tobacco: NeverAlcohol UseStandard Drinks/WeekCommentsNo0 (1 standard drink = 0.6 oz pure alcohol)Adolescent EducationAnswerDate RecordedGetting School Help NeededNot on file04/22/2023Sex and Gender InformationValueDate RecordedSex Assigned at Not on fileLegal GmiKieg48/04/2012 4:50 AM CSTGender IdentityNot on fileSexual OrientationNot on file Last Filed Vital Signs Vital SignReadingTime TakenCommentsBlood Xbigkmkx528/8005/03/2023 7:38 AM CDT Pwvmt576811/12/2022 7:38 AM HOJXyycolzfhyf40.2 ??C (98.9 ??F)11/12/2022 7:38 AM CDTRespiratory Xhmm043711/12/2022 7:38 AM CDTOxygen Jpssymhfuk56%11/12/2022 7:38 AM CDTInhaled Oxygen Concentration--Ryzlwu37.1 kg (207 lb 8 oz)11/11/2022 6:09 AM HIMBpxhsl003.9 cm (6')11/11/2022 6:09 AM CDTBody Mass Index28.14011/11/2022 6:09 AM CDT Plan of Treatment Health MaintenanceDue DateLast DoneCommentsADVANCE CARE VIPOVRKE1947ANNUAL REVIEW OF HM IZHJSN08 1947HEPATITIS C CLFOJKIVT11/10/2954GYKZT56/10/1987FALL RISK JKUOEQJBXD52/10/2012RSV VACCINE (1 - 1-dose 75+ series)2022MEDICARE ANNUAL WELLNESS VISIT/04/2022, 05/01/2020PHQ-2 (once per calendar year)5COVID-19 VACCINE ( season), 12/07/2021, 05/07/2021, Additional history existsINFLUENZA VACCINE (#1) , 05/14/2021, 04/06/2020, Additional history existsDIABETES JHYNCJIGK14/09/182786/03/2023, 11/12/2022, 04/25/2020, Additional history exists DTAP/TDAP/TD VACCINE (5 - Td or Tdap), 02/19/2013, 10/31/2006, Additional history existsPNEUMOCOCCAL VACCINE 50+ YEARSCompleted 06/26/2015, 06/11/2012ZOSTER NIRYYLTLmtyelrlg62/28/2020, 05/24/2019, 08/02/2008 HPV VACCINE (No Doses Required)CompletedMENINGITIS VACCINEAged OutNo longer eligible based on patient's age to complete this topic Medical Devices ImplantedTypeAreaManufacturerDevice IdentifierShelf Expiration DateModel / Serial / LotGraft Bone Infuse Bmp Sm [id number] Implanted:Qty: 1 on 04/28/2017 by Bonnie Child MD at [facility]/Tissue/BiologicRight: AnkleMEDTRONIC, INC-DANEK09/03/2018 [id number] / [id number] / [id number] Fascia Sepideh Medium - [id number] Implanted:Qty: 1 on 09/19/2021 by Dianna Charlton MD at [facility]/Tissue/BiologicLeft: ThumbMUSCULOSKELETAL BAEZA [id number] / [id number] / Graft Bone Head Femoral 44mm 491003 - [id number] Implanted:Qty: 1 on 11/11/2022 by Bonnie Child MD at [facility]/Tissue/BiologicRight: AnkleMUSCULOSKELETAL TRAN05/04/2026 [id number] / [id number] / Imp Scr Arthrex Blue Locking 3.5x18mm Ar-8935l-18 Implanted:Qty: 3 on 02/03/[facility]/AnchorLeft: OglcGFFNQGHFY-4137B-11 / / AUTOCLAVED FEBRUARY 03 2017 LOAD 42/03Imp Scr Arthrex Can 4.0x20mm Ar-8940-20 Implanted:Qty: 1 on 02/03/2017 [facility] Hard[facility]/AnchorLeft: UvofWUKTADUON-7836-46 / / AUTOCLAVED FEBRUARY 03 2017 LOAD 42/03Imp Plate Arthrex Lapidus [id number] Implanted:Qty: 1 on 02/03/2017 [facility]/AnchorLeft: FootARTHREXAR-8941 / / AUTOCLAVED FEBRUARY 03 2017 LOAD 42/03Imp Staple Mmi Easyclip Si Forefoot 41j04b55oc Fky03-32-25 - [id number] Implanted:Qty: 1 on 09/19/2021 by [facility]/AnchorLeft: ThumbMEMOMETAL INC 07/06/20256547OZK01-29-70 / / [id number] Staple Mmi Easyclip Si Forefoot 57x83w42lo Byj31-14-31 - [id number] Implanted:Qty: 1 on 09/19/2021 by [facility]/AnchorLeft: ThumbMEMOMETAL INC 04/05/20253107BQP67-69-48 / / [id number] 12mm 150mm Ankl Rt T2 Im Lck Ti Strl Arthds - [id number] Implanted:Qty: 1 on 11/11/2022 by [facility] Hardware/AnchorRight: AnkleSTRYLaserlike CORPORATION [id number] / / [id number] Scr Strk Lock 5.0x40mm Ft 1896-5040s - [id number] Implanted:Qty: 1 on 11/11/2022 by [facility] Hard[facility]/AnchorRight: AnkleSTRYKER ORTHOPEDICS [id number] / / [id number] Scr Strk Lock 5.0x40mm Ft 1896-5040s - [id number] Implanted:Qty: 1 on 11/11/2022 by [facility]/AnchorRight: AnkleSTRYKER ORTHOPEDICS [id number] / / [id number] Scr Strk Lock 5.0x32.5mm Ft 1896-5032s - [id number] Implanted:Qty: 1 on 11/11/2022 by [facility]/AnchorRight: AnkleSTRYKER CORPORATION [id number] / / [id number] Scr Strk Lock 5.0x85mm Ft 1896-5085s - [id number] Implanted:Qty: 1 on 11/11/2022 by [facility] at [facility]Met[facility] Hardware/AnchorRight: AnkleSTRYKER Revuze [id number] / / [id number] End Cap Strk T2 Ft Spnial Scr 1826-0003s - [id number] Implanted:Qty: 1 on 11/11/2022 by [facility]Met[facility] Hard[facility]/AnchorRight: AnkleSTRYKER ORTHOPEDICS [id number] / / [id number] Insert Tornier Tibial Ankle Size 3x9mm Lt [id number] Implanted:Qty: 1 on 02/03/2017 by Bonnie Child MD at [facility] Joint Component/InsertLeft: AnkleTORNIER INC05/03/2020 SDL399 / [id number] / Imp Insert Tornier Tibial Ankle Base Size 3 [id number] Implanted:Qty: 1 on 02/03/2017 by Bonnie Child MD at [facility] Joint Component/InsertLeft: AnkleTORNIER INC02/08/2021 OCX091 / [id number] / Imp Comp Tornier Talar Ankle Size 3 Lt [id number] Implanted:Qty: 1 on 02/03/2017 by Bonnie Child MD at [facility] Joint Component/InsertLeft: AnkleTORNIER INC09/03/2020 LTT272 / [id number] / Imp Wire Nitin 0.045x4 78.2020 - [id number] Implanted:Qty: 2 on 09/19/2021 by [facility]na [facility]ton [facility] at [facility] CenterWireLeft: ThumbG HZRZLV58..17Sep2021 49739Krz Wire Nitin 0.062x4 78.2029 S78. Implanted:Qty: 2 on 09/19/2021 by [facility]ianna [facility]ton MD at [facility] CenterWireLeft: ThumbG FCYHDM71. / 78.17Sep2021 66902Fek Elite [id number] One Nitinol Implant For Use With Dk-300 Drill Bit Kit Implanted:Qty: 1 on 02/03/2017 by [facility] CenterLeft: Foot1EL-2020S2 / / Graft Bone Infuse Bmp Sm [id number] Implanted:Qty: 1 on 04/24/2020 by [facility] CenterRight: AnkleMEDTRONIC, INC-[id number] / / [id number] Bone Infuse Bmp Lg [id number] - [id number] Implanted:Qty: 1 on 11/11/2022 by [facility] CenterRight: AnkleMEDTRONIC [id number] / / [id number] 3mm X 285mm K-Wire Implanted:Qty: 1 on 11/11/2022 by [facility] at [facility] CenterRight: [id number] / / ExplantedTypeAreaManufacturerDevice [facility] - [facility] Rosehelf Expiration DateModel / Serial / LotImp Insert Tornier Tibial Ankle Base Size 3 [id number] Implanted:Qty: 1 on 04/28/2017 by Bonnie Child MD at [facility] Explanted:Qty: 1 on 04/24/[facility]/InsertRight: AnkleTORNIER INC02/14/2021 ENM008 / [id number] / Imp Insert Tornier Tibial Ankle Size 3x11mm Rt [id number] Implanted:Qty: 1 on 04/28/2017 by Bonnie Child MD at [facility] Explanted:Qty: 1 on 04/24/2020 by [facility] Joint Component/InsertRight: AnkleTORNIER INC07/06/2019 YRA019 / [id number] / Agility Total Ankle Components X3 (Discarded) Explanted:Qty: 1 on 04/28/2017 by [facility] CenterRight: AnkleSalto Talaris Xt Size 3 Right Talar Part Short Peg Implanted:Qty: 1 on 04/28/2017 by Bonnie Child MD at [facility] Explanted:Qty: 1 on 04/24/2020 by [facility] at [facility] CenterRight: Ankle04/17/2020LJU813 / [id number] / Imp Tibial Tray, Xl, Size 3 Implanted:Qty: 1 on 04/24/2020 by Bonnie Child MD at [facility] Explanted:Qty: 1 on 11/11/2022 by Bonnie hCild MD at [facility] CenterRight: AnkleASCENSION VTGEYSFLPK51/05/8663NMC858W / / [id number] Kimberly Talaris Tibial Insert Size 3 Right Implanted:Qty: 1 on 04/24/2020 by Bonnie Child MD at [facility] Explanted:Qty: 1 on 11/11/2022 by [facility]nie [facility] at [facility] CenterRight: WomblWBDDPPT45/17/9295BQH814 / [id number] / Imp Kimberly Talaris Xt Talar Part Short Peg Size 3 Right Implanted:Qty: 1 on 04/24/2020 by Bonnie Child MD at [facility] Explanted:Qty: 1 on 11/11/2022 by [facility] CenterRight: SvqniRPLCEPR09/09/2346FYN352 / [id number] / Procedures Procedure NamePriorityDate/TimeAssociated DiagnosisCommentsGLUCOSE BY METER Wrhnrvi7411/12/2022 1:49 AM CDT from Last 3 Months or Most Recently Relevant to Health Maintenance Results * (ABNORMAL) Glucose by meter (11/12/2022 1:49 AM CDT)ComponentValueRef Range Test MethodAnalysis TimePerformed AtPathologist SignatureGLUCOSE BY METER POCT 141(H)70 - 99 mg/dL11/12/2022 1:55 AM CDTSH LABORATORY POCSpecimen (Source) Anatomical Location / LateralityCollection Method / VolumeCollection Time Received TimeBlood, CapillaryBLOOD SPECIMEN / Putqcuw1711/12/2022 1:49 AM CDT 11/12/2022 1:55 AM CDT Narrative Authorizing ProviderResult TypeResult StatusJohanjames DYE POCTFinal ResultPerforming OrganizationAddressCity/State/ZIP CodePhone Number LABORATORY [facility] [address] floor, [address] [place] [address], [facility] [phone] from Last 3 Months or Most Recently Relevant to Health Maintenance Insurance Advance Directives For more information, please contact: [phone] * Full Code (Latest Code Status on File) Date ActivatedDate InactivatedComments11/11/2022 11:20 AM11/12/2022 1:08 PMAll basic and advanced life-sustaining interventions are performed as appropriateQuestion AnswerCommentsCode status determined by:* Discussion with patient/ legal decision maker * Full Code Date ActivatedDate RbkwlpjghuwXxvcfbhc87/23/2017 1:39 PM10 1:09 PM * Full Code Date ActivatedDate InactivatedComments02/03/2017 4:08 PM02/05/2017 3:35 PM Care Teams Team MemberRelationshipSpecialtyStart DateEnd Date Adrien Hernandez MD [address] [place] [address] PCP - General01/06/17
--- OUTSIDE RECORDS SUMMARY | 2025-06-28 10:10 | XMS_ITS | Data Portability ---
Author Organization [place] - Pravin Dohertylo gy, [facility] Address [address] [place] [address] Care Team Providers Care Channel Turner Name Role Phone KJ RODAS Primary Care Provider Assessment No assessment recorded. Plan of Treatment Reminders Order DateSubmit DateProviderLast Modified ByOrganization DetailsLast Modified TimeDetailsAppointmentsESTABLISHED PHONE VISIT 11:40Marilou Batista MDNot availableNot availableNot availableLabPSA, total, serum or plasma /[facility], [address] [place], [address], 12/ 16:35:34testosterone, total, serum/[facility] [address] [place], [address], 108/23/2024 16:35:08hemoglobin (Hb), blood/5[facility] [address] [place], [address], 12 16:35:18PSA, total, serum or wiqxwr65/07/20238553pakmfddk693Adeffo [facility], [address] [facility], [place], [address], 04/ 15:14:47testosterone, total, serum/07/20231594djtbsuih390Jyzjzx [facility], [address] [facility] [address], [place], [address], 18 15:14:46hemoglobin (Hb), blood/07/20232401asdqykhn872Heqfpx [facility], [address] [facility], [place], [address], 97 15:14:46testosterone, total, serum/08/2022tebbertAllina [facility], [address] [facility], [place], [address], 3 12:29:25PSA, total, serum or fvoyhv835460dwxihfql353Vrgqzz [facility], [address] [place] [address], [address], 30 08:45:23testosterone, total, serum8890xntekrhe232Uxpkou [facility], [address] [place], [address], 65 08:45:23hemoglobin (Hb), blood3761vtdfahim085Naeijl [facility], [address] [place], [address], 91 08:45:23PSA, total, serum or rotsta882932dkfpbqkx616Qgjene [facility], [address] [facility], [place], [address], 5 08:48:27testosterone, total, serum6351rbnzrojd068Rvzfhi [facility], [address] [place], [address], 1 08:48:27ReferralNone recorded.ProceduresNone recorded.SurgeriesNone recorded.ImagingNone recorded. Medication OrdersXyosted 75 mg/0.5 mL subcutaneous auto-vlsfteyg92/01/2024 10/06/2023[facility], [address] [place], [place], [id number], 10/06/2023 10:53:47Xyosted 75 mg/0.5 mL subcutaneous auto-bsnaxfuf36[facility] #11291, [address] [place], [place], [phone], 10 10:27:30Xyosted 75 mg/0.5 mL subcutaneous auto-alwxyobo32[facility] #00510, [address] [place], [place], [phone], 10/07/2022 11:50:48Xyosted 75 mg/0.5 mL subcutaneous auto-hnzrmaav91/03/2022 04/08/20229954ddxajkj2Swgpqmxwc [facility]94504, [address] [place], [place], [phone], 04/09/2022 00:08:40 Patient TargetsNo targets recorded. Patient Instructions Encounter Date Encounter Id Patient Instructions Last Modified By Organization Details Last Modified Time 04/08/2022 [id number] Telephone - 10 minutes Not available 04/08/2022 11:04:02 10/07/2022 [id number] Telephone - 6 minutes Not available 10/07/2022 11:46:16 04/07/2023 [id number] Telephone - 7 minutes Not available 04/07/2023 10:27:29 10/06/2023 [id number] Telephone - 6 minutes Not available 10/06/2023 10:53:46 10/08/2024 [id number] Telephone - 11 minutes Not available 10/08/2024 10:43:42 Reason for Referral None Reported. Results Created Date Observation Date Name Description Value Unit Range Abnormal Flag Note LastModifiedBy Organization Detail LastModifiedTime 09/27/2024 09/28/2024 HEMOGLOBIN hemoglobin 15.3 g/dL 13.2-17. 1 normal Not Available[facility] [address] [place], [address], 5335[address]/28/2024 08:49:27 TESTOSTERONE, TOTAL, MALES (ADULT), IAtestosterone, total, males (adult), az306TD/rE817-712sivaGxa Available[facility] [address] [place], [address], 3020709/28/2024 08:49:29 PSA, TOTALPSA, total<0.04NG/mL< or = 4.00normalThe total PSA value from this assay system is standardized against the WHO standard. The test result will be approximately 20% lower when compared to the equimolar- standardized total PSA (Arnel Rhonda). Comparison of serial PSA results should be interpreted with this fact in mind. This test was performed using the Siemens chemiluminescent method. Values obtained from different assay methods cannot be used interchangeably. PSA levels, regardless of value, should not be interpreted as absoluteevidence of the presence or absence of disease.Not Available[facility] [address] [place], [address], 009/28/2024 08:49:30 Result Notes None recorded. Problems Name Problem SNOMED Code Status Onset Date Resolution Date Notes Provider Name and Address Organization Details Recorded Time Primary malignant neoplasm of prostate 16441374 Active 08/10/2014 185 : CARCINOMA-PROSTATENot GjcpqdemeCvgnvlZklfkv76/18/2020 02:08:45Mixed urinary dwluhdhzholf538050572Jxsjzv72/11/1634465.33 : MIXED INCONTINENCENot PqxfwzmbbXokiarWtbyru31/18/2020 02:08:59KnciveddyIycaln34/03/0707Q60.9 : Male erectile dysfunction unspecifiedNot SopqufifpQlfttdOofnnp93/18/2020 02:08:45 Problem Notes None recorded. Procedures Surgical History Date Name Laterality Status Provider Name and Address Organization Details Recorded Time 09/19/2020 implantation of penile prosthesi s completedStevmanuelito [facility] Nenreok42/03/2022 10:07:3503insertion of single incision mid-urethral mini-slingcompletedSteven [facility] Roicqzi54/03/2022 10:08:1404/prostatectomycompleted[place] [address] 10:06:57 Imaging Results None recorded. Procedure Notes None recorded. Medical Equipment None Reported. Allergies Allergen ID Allergen Name Allergen Category Reaction Reaction Severity Criticality Documentation Date Start Date Code Code System Note Provider Name and Address Organization Details Recorded Time 609713 naproxen medication Not available Not available Not iqmpczdum15//[id number] LmpirceckGktgenKcanyo95/18/2020 00:42:19799331Kqifyme containing 9-bujopbv-0-methylglutaryl-coenzyme A reductase inhibitor (product)medicationmyalgias (muscle pain) Not available Not qmokuhmph41/03/686098827269WDSZRGBtljti [place] [address] 10:26:55329059dlmhdijklxtx calciummedication myalgias (muscle pain) Not available low503/14/783287538QfYjtcKzyhhj pains with atorvastatin unrecognized reaction (text: Unknown, code: [id number]) (from external source)Not Available [facility] - [employer] Data [employer] - [facility]06/22/2025 16:13:46903647ghqffngbactr medicationnausea Not available low505/05/5603101746CjRtgyTpchjb intolerance.Not Availableathlac[facility] e|tab Data Service - [facility]06/22/2025 16:13:93549136lzudlguybmxeeslimjycqdczq Not available Not fxsrqrhme15//[id number] Availableathsouth[facility] [employer] Data [employer] - [facility]06/22/2025 16:13:90599865snlxjuvkucarqptr,medicationNot available Not available Not qaredlsam8903309626975AaYxuwNzf Available[place] - External Data Service - [facility]06/22/2025 16:13:67048593gqeiulyhbnxtoauslyhcxrQny available Not available Not envygkwfk20/[id number] Availableformerly [facility], [facility] External Data Service - [facility]06/22/2025 16:13:34 Medications Name Sig Start Date Stop Date Status Note LastModified by Organization Details LastModified Time senna-s 8.6mg-50mg tablets TAKE 1 OR 2 T ABLETS BY MOUTH DAILY TO PREVENT CONSTIPATION 10/08/2024ompletedNot AvailableNot AvailableNot Availablecyclobenzaprine 10 mg tabletTAKE 1 TABLET BY MOUTH EVERY DAY AT BEDTIMEactiveNot AvailableNot AvailableNot Availableamoxicillin 500 mg capsuleTK FOUR CS PO 1 HOUR B DAPP activeNot AvailableNot AvailableNot Availabledoxycycline hyclate 100 mg capsule TAKE 1 CAPSULE BY MOUTH TWICE DAILY FOR 5 DAYS10/06/2023ompletedNot Available Not AvailableNot Availableketoconazole 2 % shampooWASH AREA 2 TO 3 TIMES WEEKLY. LATHER AND LET SIT FOR 3 TO 5 MINUTES THEN RINSE OFF10/08/2024ompletedNot AvailableNot AvailableNot Availabletizanidine 2 mg tabletTAKE 1-2 TABLET BY MOUTH AT BEDTIMEactiveNot AvailableNot AvailableNot Availableazithromycin 250 mg tabletTAKE 2 TABLETS BY MOUTH FOR 1 DAY THEN TAKE 1 TABLET BY MOUTH DAILY FOR 4 DAYS10/08/2024ompletedNot AvailableNot AvailableNot Availableamiodarone 200 mg tabletTAKE 1 TABLET BY MOUTH TWICE DAILYactiveNot AvailableNot AvailableNot Availablebenzonatate 200 mg capsuleTAKE 1 CAPSULE BY MOUTH 2 TO 3 TIMES PER DAY NEEDED FOR COUGH10/06/2023ompletedNot AvailableNot AvailableNot Available cephalexin 250 mg capsuleTAKE 1 CAPSULE BY MOUTH FOUR TIMES DAILY10/06/2023 completedNot AvailableNot AvailableNot Availablehydrocodone 5 mg-acetaminophen 325 mg tabletTAKE 1-2 TABLETS BY MOUTH EVERY 4-6HR NEEDED FOR PAIN. MAX DAILY 8 UDSXXUT3110/08/2024ompletedNot AvailableNot AvailableNot Availablesotalol 80 mg tabletTAKE 1 TABLET BY MOUTH TWICE DAILY BEFORE MEALS10/08/2024ompletedNot AvailableNot AvailableNot Availableprednisone 20 mg qebwve2804/07/2023ompletedNot AvailableNot AvailableNot Availablebetamethasone, augmented 0.05 % topical cream 04/07/2023ompletedNot AvailableNot AvailableNot Availablemetronidazole 500 mg tabletTAKE 1 TABLET BY MOUTH EVERY MORNING AND 1 EVERY EVENING FOR 7 DAYS 04/07/2023ompletedNot AvailableNot AvailableNot Availableclopidogrel 75 mg ysmpen5310/08/2024ompletedNot AvailableNot AvailableNot Availableamlodipine 5 mg tabletTAKE 1 TABLET BY MOUTH EVERY DAYactiveNot AvailableNot AvailableNot Availableciprofloxacin 500 mg tabletTAKE 1 TABLET BY MOUTH EVERY MORNING AND 1 EVERY EVENING FOR 7 DAYS04/08/2022ompletedNot AvailableNot AvailableNot Availableomeprazole 40 mg capsule,delayed releaseactiveNot AvailableNot AvailableNot Availableaspirin 81 mg tablet,delayed releaseTAKE 1 TABLET BY MOUTH TWICE DAILY. TAKE UNTIL GONEactiveNot AvailableNot AvailableNot Available triamcinolone acetonide 0.1 % topical creamAPPLY A THIN LAYER TO THE AFFECTED AREA ON ARMS AND TRUNK 1-2 TIMES DAILY FOR 2 WEEKS. REPEAT NEEDED FOR FLARES 04/07/2023ompletedNot AvailableNot AvailableNot Availableketorolac 0.5 % eye drops04/07/2023ompletedNot AvailableNot AvailableNot Availableofloxacin 0.3 % ear dropsINSTILL 10 DROPPERFUL TO AFFECTED EAR EVERY DAY FOR 5 DAYS10/08/2024 completedNot AvailableNot AvailableNot Availablehydromorphone 2 mg tablet 04/08/2022ompletedNot AvailableNot AvailableNot Availableprednisolone acetate 1 % eye drops,/02/2023ompletedNot AvailableNot AvailableNot Available clindamycin 1 % topical gelAPPLY TOPICALLY TO THE AFFECTED AREA TWICE DAILY FOR 7 DAYS04/07/2023ompletedNot AvailableNot AvailableNot Availabledoxycycline monohydrate 100 mg capsuleTAKE 1 CAPSULE BY MOUTH TWICE DAILY FOR 2 WEEKS. TAKE WITN NON-DAIRY FOOD AND SUPPLEMENT WITH A AXLCSNYFN90/03/2022ompletedNot AvailableNot AvailableNot Availablecephalexin 500 mg capsuleTAKE 1 CAPSULE BY MOUTH THREE TIMES DAILY UNTIL GONE10/07/2022ompletedNot AvailableNot Available Not Availabletacrolimus 0.1 % topical ointmentAPPLY 1-2 GRAMS TO THE AFFECTED AREA ON THE ANAL REGION ONCE DAILY.activeNot AvailableNot AvailableNot Available polymyxin B sulfate 10,000 unit-trimethoprim 1 mg/mL eye dropsactiveNot AvailableNot AvailableNot Availablebetamethasone, augmented 0.05 % topical ointmentAPPLY TO AFFECTED AREA 1-2X DAILY FOR 2 WEEKS. TAKE 2 WEEKS OFF. REPEAT FOR FLARES.activeNot AvailableNot AvailableNot Availableomeprazole 20 mg capsule,delayed releaseTAKE 1 CAPSULE BY MOUTH EVERY DAY BEFORE A MEAL04/07/2023 completedNot AvailableNot AvailableNot Availablemupirocin 2 % topical ointment APPLY TO EXCISION SITE 1-2 TIMES DAILY UNTIL QBLHCE8504/07/2023ompletedNot AvailableNot AvailableNot Availablepilocarpine 4 % eye dropsPLACE 1 DROP INTO LEFT EYE 4 TIMES DAILY04/07/2023ompletedNot AvailableNot AvailableNot Available albuterol sulfate HFA 90 mcg/actuation aerosol inhalerINHALE 1 TO 2 PUFFS BY MOUTH EVERY 6 HOURS NEEDED FOR SHORTNESS OF BREATHactiveNot AvailableNot AvailableNot Availablecelecoxib 100 mg capsuleactiveNot AvailableNot Available Not Rmakntsufgsdbzjtohqwksqx-kcfrdgfttzaqvvp-RR 2 mg-30 mg-10 mg/5 mL oral syrup TAKE 5 MILLILITERS BY MOUTH FOUR TIMES A DAY NEEDED FOR COUGH04/07/2023 completedNot AvailableNot AvailableNot Availableondansetron 4 mg disintegrating tabletDISSOLVE 1 TABLET ON THE TONGUE EVERY 8 HOURS10/08/2024ompletedNot AvailableNot AvailableNot Availablegentamicin 0.1 % topical ointmentAPPLY TO THE AFFECTED AREA TWICE DAILY FOR 2 WEEKS04/07/2023ompletedNot AvailableNot AvailableNot Availablediazepam 5 mg tabletTAKE 1 TABLET BY MOUTH BEFORE PROCEDURE. MAY REPEAT 1 TIMEactiveNot AvailableNot AvailableNot Available amoxicillin 875 mg-potassium clavulanate 125 mg tabletTAKE 1 TABLET EVERY MORNING AND 1 TABLET EVERY EVENING WITH MEALS FOR 7 DYAS1ompletedNot AvailableNot AvailableNot Availableoxycodone 5 mg tabletTAKE 1 TABLET BY MOUTH EVERY 4 TO 8 HOURS NEEDED FOR PAINactiveNot AvailableNot AvailableNot Availablemoxifloxacin 0.5 % eye drops04/07/2023ompletedNot AvailableNot AvailableNot Availablemetoprolol tartrate 25 mg tabletTAKE 1 TABLET BY MOUTH TWICE DAILY04/07/2023ompletedNot AvailableNot AvailableNot Availableeszopiclone 1 mg tabletTAKE 1 TO 2 TABLETS BY MOUTH EVERY NIGHT AT BEDTIMEactiveNot AvailableNot AvailableNot Availablebudesonide-formoterol HFA 80 mcg-4.5 mcg/actuation aerosol inhalerINHALE 2 PUFFS BY MOUTH TWICE DAILY FOR 14 DAYS 4completedNot AvailableNot AvailableNot Availablediclofenac 1 % topical gelAPPLY 2 GRAMS TOPICALLY TO THE AFFECTED AREA FOUR TIMES DAILYactiveNot AvailableNot AvailableNot AvailableEliquis 5 mg tabletactiveNot AvailableNot AvailableNot AvailableStimulant Laxative Plus 8.6 mg-50 mg tabletTAKE ONE OR TWO TABLETS BY MOUTH TWICE DAILY NEEDED FOR CONSTIPATION WHILE USING NARCOTICS 5completedNot AvailableNot AvailableNot AvailableRepatha SureClick 140 mg/mL subcutaneous pen injectorINJECT 1ML SUBCUTANEOUS EVERY 2 WEEKSactiveNot AvailableNot AvailableNot AvailableXyosted 75 mg/0.5 mL subcutaneous auto-injectorINJECT 0.5 ML UNDER THE SKIN EVERY WEEKactiveNot AvailableNot AvailableNot AvailableDayvigo 10 mg tabletTAKE 1/2 TO 1 TABLET BY MOUTH EVERY NIGHT AT IWRTPIR04/04/2025completedNot AvailableNot AvailableNot Available Paxlovid 300 mg (150 mg x 2)-100 mg tablets in a dose packTK 2 NIRMATRELVIR TS AND 1 RITONAVIR T TOGETHER PO BID FOR 5 DAYS10/08/2024ompletedNot AvailableNot AvailableNot Available Vitals Date Recorded Body height Body mass index (BMI) Body weight Provider Name and Address Organization Details Last Updated DateTime 10/06/2023 182.88 cm 27.1 kg/m2 48044.47 g Brendon Diaz [facility] 10/06/2023 10:12:15 Date Recorded Body height Body mass index (BMI) Body weight Provider Name and Address Organization Details Last Updated DateTime 10/07/2022 182.88 cm 27.9 kg/m2 23383.03 g Rajni Hoang [facility] 10/07/2022 10:57:49 Date Recorded Body height Body mass index (BMI) Body weight Provider Name and Address Organization Details Last Updated DateTime 10/08/2024 182.88 cm 27.8 kg/m2 30982.44 g Tao flores [facility] 10/08/2024 10:11:25 Date Recorded Body height Body mass index (BMI) Body weight Provider Name and Address Organization Details Last Updated DateTime 04/07/2023 182.88 cm 27.9 kg/m2 30562.03 g Rajni Hoang [facility] 04/07/2023 10:02:38 Date Recorded Body height Body mass index (BMI) Body weight Provider Name and Address Organization Details Last Updated DateTime 04/08/2022 182.88 cm 27.4 kg/m2 58244.66 rolf Zaheer Cheo [facility] 04/08/2022 10:26:15 Social History Question Answer Notes LastModified by Organization D etails LastModified Time Tobacco Smoking Status Never Smoker Zaheer Grider [facility] Sajddcs25/03/2022 10:05:49What Is Your Level Of Caffeine Consumption?ModeratemmadrigalvaleroInformation not ycezhuflm75/04/2025What Was The Date Of Your Most Recent Tobacco Screening?10/08/2024mmadrigalvalero Information not vitcbucro98/04/2025 Sex: Unknown Functional Status Question Answer Note LastModified by Organization D etails LastModified Time Do you use any illicit or recreational drugs? No mmadrigalvaleroInformation not xkkvebvag57/04/2025What is your level of alcohol consumption?NonemmadrigalvaleroInformation not woxaufnbu83/04/2025 Mental Status None recorded. Family History Nothing Reported. Medical History Condition Response Diabetes Y Other Bleeding DisorderHigh Blood PressureYKidney StonesYCancerDepressionYLung Disease YHeart DiseaseY Immunizations Vaccine Type Date Status Note Provider Nam e and Address Organization Details Recorded Time Influenza, adjuvanted, quadrivalent, PF 05/16/2022 c ompleted Brendon Emily [facility], [facility] Xyeeowg8210/06/2023 10:12:19COVID-19, mRNA, LNP-S, bivalent, PF, 30 mcg/0.3 mL dose2completeMerariali Emily [facility], [facility] Hgdeyjn6010/06/2023 10:12:19Influenza, adjuvanted, quadrivalent, PF 3completedNot SzqmztxlhCybvagCyhhaq84/04/2025 10:11:53Influenza, adjuvanted, trivalent, PF4completedNot SniaebgklGmlgljTrzsyi28/04/2025 10:11:53Influenza, adjuvanted, trivalent, PF03/26/2019completedRajni Morleyoza null, [place] [address] 10:02:45Influenza, adjuvanted, trivalent, PF 04/10/2017complet[facility] Hospitalsaea Hoang null, [facility] Maqcrbl03/02/2023 10:02:45Influenza, adjuvanted, trivalent, PF 04/13/2018completMariloua Hoang null, [place] [address] 10:02:45zoster mphbivkagbx50/28/2020completed Rajni Juareza null, [place] [address] 10:02:45zoster eafgrdyvvms62/19/2019completed Rajni Juareza null, [place] [address] 10:02:45Influenza, adjuvanted, quadrivalent, PF 04/06/2020completedMariloua Hoang null, [facility] Kcgfesr78/02/2023 10:02:45Influenza, adjuvanted, quadrivalent, PF 05/14/2021ompleteTea Hoang null, [place] [address] 10:02:45COVID-19, mRNA, LNP-S, PF, 30 mcg/0.3 mL dose09/13/2020ompprairie view psychiatric hospitalSusieartha Hoang null, [facility] Yvbshai99/02/2023 10:02:45COVID-19, mRNA, LNP-S, PF, 30 mcg/0.3 mL dose10/04/2020ompletedMartha Hoang null, [facility] Rgkzbpr97/02/2023 10:02:45COVID-19, mRNA, LNP-S, PF, 30 mcg/0.3 mL dose05/07/2021ompprairie view psychiatric hospitaldMartha Hoang null, [facility] Dipbiuo89/02/2023 10:02:45COVID-19, mRNA, LNP-S, PF, 30 mcg/0.3 mL dose, irwin-wulkuwo0112/07/2021ompletedMmisty Juareza null, [facility] Qiwjvyy10/02/2023 10:02:45pneumococcal polysaccharide PPV23 06/11/2012completedMariloua Hoang null, [facility] Fydldyu10/02/2023 10:02:13Gaye02completedMariloua Hoang null, [facility] Masocxu34/02/2023 10:02:03Bjwm70/06/2020completedMariloua Hoang null, [facility] Dkietgw29/02/2023 10:02:67Qpcy52completedMariloua Hoang null, [facility] Rklehmd03/02/2023 10:02:45Pneumococcal conjugate PCV 13108/27/2014 completedLy[facility] Centercastillo Juareza null, [facility] Rforxlz28/02/2023 10:02:45yellow fever live08/23/2011completed Rajnifabienne uJareza null, [facility] Goebbht81/02/2023 10:02:45zoster live08/02/2008completedRajni Juareza null, [facility] Argytfa30/02/2023 10:02:45Influenza, high-dose, trivalent, PF 04/22/2016completedLyons Va Medical Centercastillo Juareza null, [facility] Kroeccu67/02/2023 10:02:45Influenza, high-dose, trivalent, PF 04/24/2015completedMariloua Hoang null, [facility] Ykjhdgu59/02/2023 10:02:45Influenza, split virus, trivalent, izfjkxiboxys67/22/2009completedMariloua Hoang null, [facility] Eulaggu66/02/2023 10:02:45Influenza, split virus, trivalent, yjdfbhjearas32/12/2010completedWmchealthdiogo Juareza null, [facility] Nsgevps52/02/2023 10:02:45Influenza, split virus, trivalent, szxbhugljphz73/17/2003completSelect Specialty Hospitalcastillo Juareza null, [facility] Fsawcgm49/02/2023 10:02:45Influenza, split virus, trivalent, kgvytxqvbzwi47/18/2008completSelect Specialty Hospitalsaea Hoang null, [facility] Rvewjna38/02/2023 10:02:45Influenza, split virus, trivalent, fuudfqjxexcf29/26/2007completSelect Specialty Hospitalcastillo Morleyoza null, [facility] Vkvpznm53/02/2023 10:02:45Influenza, split virus, trivalent, nrfevqiijtrc05/06/2012completSelect Specialty Hospitalsaea Hoang null, [facility] Obbgmtn86/02/2023 10:02:45Influenza, split virus, trivalent, fybxzukyogms09/08/2006comK[facility]ny County Hospitaldiogo Juareza null, [facility] Fiyjcax93/02/2023 10:02:45Hep A, adult07/29/2017completRajni Juareza null, [facility] Upyrsfk94/02/2023 10:02:45typhoid, ViCPs07/29/2017comAd[facility] Centercastillo Juareza null, [facility] Rqrifoa67/02/2023 10:02:45Hep A-Hep B009/13/2011[facility], [facility] Qeyglgk78/02/2023 10:02:45 Past Encounters Encounter ID Performer Location Encounter Start Date Encounter Closed Date Diagnosis/Indication Diagnosis SNOMED-CT Code Diagnosis ICD10 Code Diagnosis IMO Codes Diagnosis Note [id number] Koby Batista MD [facility] [address] [place] [address] 04/08/2022 10:00:51 04/11/2022 15:05:20 Carcinoma of prostate 976823003 C61 2. Prostate cancer (HC)- pT2c - [place] 3+4 = 7 - s/p RAL prostatectomy in October 2014- PSA remains undetectable (< 0.03)- Follow-up in Mar 2023 with PSA Testosterone level below reference oteci117675229K24.89 1. Low Testosterone- testosterone in good range- continue Xyosted 75 mg SC weekly- check Testosterone in 6 months- need to monitor Hgb (annually)[id number] [place]illa [place] [address] 10/07/2022 10:57:0604/01/2023 09:16:28Testosterone level below reference range 212300335E05.89 1. Low Testosterone- testosterone in good range- continue Xyosted 75 mg SC weekly- Follow -up in 6 months with Testosterone and HgbCarcinoma of prostate 988289515N65 2. Prostate cancer (HC)- pT2c - [place] 3+4 = 7 - s/p RAL prostatectomy in October 2014- PSA remains undetectable (< 0.03)- Follow-up in Mar 2023 with [id number] JHONATAN [facility] [address] [place] [address] 04/07/2023 10:02:0110 14:02:17Testosterone level below reference range 914314548P47.89 1. Low Testosterone- testosterone in good range- continue Xyosted 75 mg SC weekly- Follow -up in 6 months with TestosteroneCarcinoma of xdooqkhi803515160 C61 2. Prostate cancer (HC)- pT2c - [place] 3+4 = 7 - s/p RAL prostatectomy in October 2014- PSA remains undetectable (< 0.03)- Follow-up in February 2024 with [id number] JHONATAN [facility] [address] [place] [address] 10/06/2023 09:44:51010/07/2023 09:57:47Testosterone level below reference range 666338065B35.89 1. Low Testosterone- testosterone in good range- continue Xyosted 75 mg SC weekly- Follow -up in 12 months with TestosteroneCarcinoma of bxjajisv158497912 C61 2. Prostate cancer (HC)- pT2c - [place] 3+4 = 7 - s/p RAL prostatectomy in October 2014- PSA (< 0.02)- remains undetectable- Follow-up in October 2024 with PSA [id number] LemaEdina [facility] [place] [address] 10/08/2024 10:10:5704 12:00:01Testosterone level below reference range 972627980T76.89 1. Low Testosterone- testosterone in good range- continue Xyosted 75 mg SC weekly- Follow-up in 12 months with TestosteroneCarcinoma of motcstgp584555081 C61 2. Prostate cancer (HC)- pT2c - [place] 3+4 = 7 - s/p RAL prostatectomy in October 2014- PSA (< 0.04)- remains undetectable- Follow-up in October 2025 with PSA Health Concerns Section Related Observation LastModified by Organization Detai ls LastModified Time None Recorded Concern Status LastModified by Organization Details LastModified Time None Recorded Advance Directives Directive None Recorded Payers Insurance Date Sequence Insurance Name Policy Number Policy Ramos Covered Member ID Ramos Member ID Guarantor Name 10/13/2024 1 MEDICA (MEDICARE REPLACEMENT/ADVANTAGE - PPO) [id number] Chente Rubin [id number] Chente Rubin Notes Date Note Type Note Provider Name and Address Orga nization Details Recorded Time 04/08/2022 text/html 76 yo male with history of prostate cancer, low testosterone, and erectile dysfunction. His prostate cancer was treated with a robot-assisted laparoscopic prostatectomy by Dr. Pulido on October 25, 2014. He was staged as a pT2c No - ([place] 3+4 = 7) ??? all surgical margins were negative. His PSA hasbeen undetectable to date. He's had no spontaneous erections since surgery. Oral medications (Cialis/Viagra) have not helped. He tried DAVID - did not like it. He tried Trimix 1 mL - minimal erections - currently uses Quadmix (discontinued). Stendra 200 mg helped - not covered by insurance. He underwent stem-cell inject for ED in October in [place]. He tried Oxybutynin ER 5 mg daily (no changed). He has tried Androgel 50 mg daily and 100 mg daily - still has low Testosterone. 09/19/20 - IPP and Coloplast male urethral sling placement ([place] - Dr. Ashok Goins)10/08/21 - He presents today for follow-up on Prostate cancer and low testosterone. He is on Xyosted 75 mg SC weekly. He reports energy levels are okay. He voids every 2-3 hours during the day and 1-2x/night. He denies urgency and dysuria. He still has stress incontinence (with bending, coughing, andwith intercourse). He notes a bend to the [...] the COVID-19 crisis. Prior to conducting our telephonevisit, the patient was apprised of the risks, [...] fully informed decisions. Also, because of the COVID-19pandemic, it was not possible for the patient to sign the privacy regulations, HIPAA release and ass ignment of benefits forms. The patient was given the opportunity to ask questions about these policies and gave verbal acknowledgement and approval of these policies as well as to hold this meeting by telephone. Lastly, the patient agreed to allowing their medication history to be pulled from a national pharmacy database to facilitate and coordinate their care.Koby Batista MD [address] [place] [address],[address], [place], [address], [facility] - [place] Xrvvtga62/11/2022 23:09:4404text/html 77 yo male with history of prostate cancer, low testosterone, and erectile dysfunction. His prostate cancer was treated with a robot-assisted laparoscopic prostatectomy by Dr. Pulido on October 25, 2014. He was staged as a pT2c No - ([place] 3+4 = 7) ??? all surgical margins were negative. His PSA hasbeen undetectable to date. He's had no spontaneous erections since surgery. Oral medications (Cialis/Viagra) have not helped. He tried DAVID - did not like it. He tried Trimix 1 mL - minimal erections - currently uses Quadmix (discontinued). Stendra 200 mg helped - not covered by insurance. He underwent stem-cell inject for ED in October in [place]. He tried Oxybutynin ER 5 mg daily (no changed). He has tried Androgel 50 mg daily and 100 mg daily - still has low Testosterone. 09/19/20 - IPP and Coloplast male urethral sling placement ([place] - Dr. Ashok Goins) 04/08/22 - He [...] every 2-3 hours during the day and 1- 3x/night. He denies dysuria - has occasional urgency. [...] the COVID-19 crisis. Prior to conducting our telephonevisit, the patient was apprised of the risks, [...] fully informed decisions. Also, because of the COVID-19pandemic, it was not possible for the patient to sign the privacy regulations, HIPAA release and ass ignment of benefits forms. The patient was given the opportunity to ask questions about these policies and gave verbal acknowledgement and approval of these policies as well as to hold this meeting by telephone. Lastly, the patient agreed to allowing their medication history to be pulled from a national pharmacy database to facilitate and coordinate their care.Koby Batista MD [address] [place] [address],[address], [place], [address], [facility] Mhtdjxa7210/07/2022 11:50:5510text/html 77 yo male with history of prostate cancer, low testosterone, and erectile dysfunction. His prostate cancer was treated with a robot-assisted laparoscopic prostatectomy by Dr. Pulido on October 25, 2014. He was staged as a pT2c No - ([place] 3+4 = 7) ??? all surgical margins were negative. His PSA hasbeen undetectable to date. He's had no spontaneous erections since surgery. Oral medications (Cialis/Viagra) have not helped. He tried DAVID - did not like it. He tried Trimix 1 mL - minimal erections - currently uses Quadmix (discontinued). Stendra 200 mg helped - not covered by insurance. He underwent stem-cell inject for ED in October in [place]. He tried Oxybutynin ER 5 mg daily (no changed). He has tried Androgel 50 mg daily and 100 mg daily - still has low Testosterone. Prostate cancer - pT2c No Mx - [place] 3+4=7 - s/p RALP (10/25/14) - (Dr. Pulido) - negative margins - no recurrance to date. 09/19/20 - IPP and Coloplast male urethral sling placement ([place] - Dr. Ashok Goins) 10/07/22 - He presents for follow-up on low testosterone. He states his energy levels and libido are good. He voids every 2-3 hours during the day and 1- 3x/night. He denies dysuria - has occasional urgency. He reports a small amount of urine leakage after urination - no leakage at night - occasional leakage with bending or standing up. 04/07/23 - He presents for follow-up on low testosterone and prostate cancer. He voids every 2-3 hours during the day and 1-3x/night. He notes occasional urine leakage after urination and with bending/ standing. PSA - < 0.03 (04/19/16)- < [...] the COVID-19 crisis. Prior to conducting our telephonevisit, the patient was apprised of the risks, [...] fully informed decisions. Also, because of the COVID-19pandemic, it was not possible for the patient to sign the privacy regulations, HIPAA release and ass ignment of benefits forms. The patient was given [...] in a breach of privacy of personal medicalinformation and a lack of access to complete [...] pharmacy database to facilitate and coordinate their care.Koby Batista MD [address] [place] [address],[address], [place], [address], [facility] - [place] Xfdomgb17/02/2023 10:30:1604text/html 78 yo male with history of prostate cancer, low testosterone, and erectile dysfunction. His prostate cancer was treated with a robot-assisted laparoscopic prostatectomy by Dr. Pulido on October 25, 2014. He was staged as a pT2c No - ([place] 3+4 = 7) ??? all surgical margins were negative. His PSA hasbeen undetectable to date. He's had no spontaneous erections since surgery. Oral medications (Cialis/Viagra) have not helped. He tried DAVID - did not like it. He tried Trimix 1 mL - minimal erections - currently uses Quadmix (discontinued). Stendra 200 mg helped - not covered by insurance. He underwent stem-cell inject for ED in October in [place]. He tried Oxybutynin ER 5 mg daily (no changed). He has tried Androgel 50 mg daily and 100 mg daily (still had low Testosterone).He is on Xyosted 75 mg SC weekly. Prostate cancer - pT2c No Mx - [place] 3+4=7 - s/p RALP (10/25/14) - (Dr. Pulido) - negative margins - no recurrence to date. 09/19/20 - IPP and Coloplast male urethral sling placement ([place] - Dr. Ashok Goins) 10/07/22 - He presents for follow-up on low testosterone. He states his energy levels and libido are good. He voids every 2-3 hours during the day and 1- 3x/night. He denies dysuria - has occasional urgency. He reports a small amount of urine leakage after urination - no leakage at night - occasional leakage with bending or standing up. 04/07/23 - He presents for follow-up on low testosterone and prostate cancer. He voids every 2-3 hours during the day and 1-3x/night. He notes occasional urine leakage after urination and with bending/ standing. 10/06/23 - He presents for follow-up on low testosterone and Prostate cancer. He voids every 2-3 hours during the day and 1-3x/night. He notes occasional urinary incontinence. PSA - < 0.03 (04/19/16)- < 0.03 (10/08/16)- < 0.03 (04/09/17)- < 0.03 (10/27/17)- < 0.03 (08/07/18) - < 0.03 (02/15/19)- < 0.03 (11/08/20)- < [...] in a breach of privacy of personal medicalinformation and a lack of access to complete [...] pharmacy database to facilitate and coordinate their care.Koby Batista MD [address] [place] [address],[address], [place], [address], [facility] - [place] Svwqigp4910/06/2023 10:54:0704text/html 79 yo male with history of prostate cancer, low testosterone, and erectile dysfunction. His prostate cancer was treated with a robot-assisted laparoscopic prostatectomy by Dr. Pulido on October 25, 2014. He was staged as a pT2c No - ([place] 3+4 = 7) ??? all surgical margins were negative. His PSA hasbeen undetectable to date. He's had no spontaneous erections since surgery. Oral medications (Cialis/Viagra) have not helped. He tried DAVID - did not like it. He tried Trimix 1 mL - minimal erections - currently uses Quadmix (discontinued). Stendra 200 mg helped - not covered by insurance. He underwent stem-cell inject for ED in October in [place]. He tried Oxybutynin ER 5 mg daily (no changed). He has tried Androgel 50 mg daily and 100 mg daily (still had low Testosterone).He is on Xyosted 75 mg SC weekly. Prostate cancer - pT2c No Mx - [place] 3+4=7 - s/p RALP (10/25/14) - (Dr. Pulido) - negative margins - no recurrence to date. 09/19/20 - IPP and Coloplast male urethral sling placement ([place] - Dr. Ashok Goins) 04/07/23 - He presents for follow-up on low testosterone and prostate cancer. He voids every 2-3 hours during the day and 1-3x/night. He notes occasional urine leakage after urination and with bending/ standing. 10/06/23 - He presents for follow-up [...] (09/17/21)- < 0.03 (02/18/22)- < 0.02 (02/24/23) - < 0.02 (10/01/23)- < 0.04 (09/28/24) Testosterone - 177 ng (08/07/18) - Free 4.96- 271 (07/14/19)- 584 (11/08/20)- 877 (09/17/21)- 666 (02/18/22)- 771 (08/21/22)- 715 (02/24/23)- 642 (10/01/23)- 889 (09/28/24) Hgb - 13.4 (05/13/19)- 12.7 (12/07/20)- 14.7 (09/17/21)- 14.5 (02/24/23)- 15.3 (09/28/24) CT scan (06/13/17) revealed 3 mm Left UVJ stone - no stones in either kidney Current patient location: [place] Current MD/ASHLEY location: [place] HIPAA compliant platform used: yes Prior to conducting our telephone visit, the patient was apprised of the risks, benefits and alternatives to telephone visits including but not limited to poor audio quality, interrupted visits due to technological limitations, delays in medical evaluation and treatment due to deficiencies or failures of equipment, failure of security protocols resulting in a breach of privacy of personal medicalinformation and a lack of access to complete [...] pharmacy database to facilitate and coordinate their care.Koby Batista MD [address] [place] [address],[address], [place], [address], [facility] Kezjvov1410/08/2024 10:44:00"
--- OUTSIDE RECORDS SUMMARY | 2025-06-28 10:11 | XMS_ITS | Clinical Summary ---
Author Organization [employer] [facility] Address [address] [place] [address] Care Team Providers [facility] Data [facility] Consultant Name Role Phone Adrien Hernandez MD Primary Care Provider [phone] Allergies Active AllergyReactionsCriticalityNoted DateCommentsAtorvastatinMyalgia 09/18/2015 Muscle pains with atorvastatin RosuvastatinNausea Only11/09/2015 Statin intolerance. Latex*Bjhmwks9505/27/20243171SopkjvphufWwydp23/05/2016NaproxenRash,Nausea Only 08/12/2024 Medications MedicationSigDispense QuantityRefillsLast FilledStart DateEnd DateStatus artificial tears, peg 400-propylene glycol, (Systane Hydration PF) 0.4-0.3 % ophthalmic dropperette Place 1-2 Drops into both eyes two times daily.Active Xyosted 75 mg/0.5 mL atIn Indications:Low testosteroneINJECT 75MG SUBCUTANEOUS WEEKLY 12 mL 03/07/2022ctive clobetasol (TEMOVATE) 0.05 % cream APPLY TWICE DAILY TO AFFECTED AREAS ON BODY FOR 2 WEEKS, TAKE 2 WEEKS OFF. REPEAT NEEDED.05/10/2024ctive eszopiclone 1 mg tablet Take 2 mg by mouth at bedtime.Active acetaminophen (Tylenol Extra Strength) 500 mg tablet Indications:S/P AVR (aortic valve replacement)Take 2 Tablets (1,000 mg) by mouth every 6 hours if needed for Pain. Max acetaminophen dose: 4000mgin 24 hrs. 5Active celecoxib (CELEBREX) 100 mg capsule Take 100 mg by mouth two times daily with meals.4Active amLODIPine (NORVASC) 5 mg tablet Indications:HTN (hypertension),Chronic atrial fibrillation (HC)TAKE 1 TABLET(5 MG) BY MOUTH DAILY 90 Tablet 5Active evolocumab (Repatha SureClick) 140 mg/mL subcutaneous pen injector Indications:Hyperlipidemia, unspecified hyperlipidemia typeInject 1 mL (140 mg) subcutaneous every 2 weeks. Inject into abdomen, thigh, or upper arms; rotate i njection sites. More refills provided at completion of appointment scheduled 07/26/[address] Damon. Please complete lipid panel labs before appointment. 6 mL 5Active amoxicillin 500 mg capsule Indications:Presence of Watchman left atrial appendage closure deviceTake 4 capsules (2000mg) by mouth one time 30-60min prior to dental work. 12 Capsule 5Active omeprazole (PRILOSEC) 40 mg Delayed-Release capsule Indications:Gastric refluxTAKE 1 CAPSULE(40 MG) BY MOUTH DAILY BEFORE A MEAL 90 Capsule 5Active ferrous sulfate 325 mg (65 mg iron) tablet Take 1 Tablet (325 mg) by mouth once every other day.5Active dilTIAZem CD (CARDIZEM CD) 120 mg extended release 24 hr capsule Indications:Paroxysmal atrial fibrillation (HC)Take 1 Capsule (120 mg) by mouth once daily. 90 Capsule 5Active aspirin enteric coated 81 mg tablet Indications:Presence of Watchman left atrial appendage closure deviceTake 1 Tablet (81 mg) by mouth once daily with a meal. Do not crush or chew.06/23/2025 Active aspirin enteric coated 81 mg tablet Indications:Presence of Watchman left atrial appendage closure deviceTake 1 Tablet (81 mg) by mouth once daily with a meal. Do not crush or chew.03/15/2025 06/21/2025Discontinued(*Patient states no longer taking) apixaban (Eliquis) 5 mg tablet Indications:prevent thromboembolism in chronic atrial fibrillationTake 1 Tablet (5 mg) by mouth two times daily. 180 Tablet Discontinued(Reorder (E-cancel not sent)) sotaloL (BETAPACE) 80 mg tablet Indications:Atrial fibrillation with RVR (HC)Take 0.5 Tablets (40 mg) by mouth two times daily before meals. 90 Tablet Discontinued(*Med complete/Regimen complete/Level of care change) cephalexin 500 mg capsule Indications:skin and skin structure infectionTake 1 Capsule (500 mg) by mouth three times daily for 10 days. 30 Capsule Expired apixaban (Eliquis) 5 mg tablet Indications:prevent thromboembolism in chronic atrial fibrillationTake 1 Tablet (5 mg) by mouth two times daily. 180 Tablet Discontinued(*Med complete/Regimen complete/Level of care change) Active Problems Patient Care Coordination No te Formatting of this note migh t be different from the original. HF/Structural/Prevention Research Eligibility Review Date: 06/22/19 Upcoming Visit Location: [facility] Age: 74 y.o. Insurance: Medicare EF: 74 LVID: Valve/Imaging: Mild MR, trace TR, mild /no AR Cardiac Devices: Comments: HF: DNQ Structural: [place]: No d/t mild MR Prevention: DNQ ProblemNoted DateDiagnosed AfujLpcvjetfjzpt93/04/2025S/P AVR (aortic valve replacement) and ascending aortic ammvlzveonx32/01/2025Degeneration of intervertebral disc of lumbar region with discogenic back pain and lower extremity pain10/28/2024 Overview (10/28/2024): ~ October 2024: L5-S1 IL epidural steroid injection by Dr. Kirkpatrick. Osteoarthritis of right vgtlcsbo91/Sensorineural hearing loss (SNHL) of both ears10/16/2022ortic mbpexyuvtp03/10/2023Myopia with presbyopia of left eye/ Overview (10/21/2022): Last Assessment & Plan: Refractive Error/Presbyopia - The results of the refraction were discussed with the patient and a new prescription for bifocal/progressive spectacles was dispensed Pseudophakia, left eye/ Overview (10/21/2022): Last Assessment & Plan: - [...] position and clear. AC quiet. - Monitor Puubqduhow44/06/2019 Overview (04/11/2019): On DEXA 04/2019 Nonrheumatic aortic valve /01/2019Sarcoidosis, lung07/29/2017 Overview (07/29/2017): Recently diagnosed at [place] Paroxysmal atrial sfsngygtnwkc97/05/2017S/P ankle joint fjgejhhwlyn04/31/2017 Pulmonary nodules/lesions, exbbtlse77/30/2017Prostate nkpgah0908/23/2014LVH (left ventricular hypertrophy)05/16/2014ED (erectile dysfunction)11/25/2013denomatous colon polyp09/24/2013 Overview (12/13/2020): Colonoscopy 09/2013 polyp repeat in 5 years Colonoscopy 07/2018 multiple polyps, repeat in 3 years Colonoscopy 12/2020 polyp, repeat in 5 years HTN (hypertension)12/28/2012Low vwtblzhahkeh93/13/2012Dry eye /22/2009 Overview (03/28/2009): Bilateral; uses drops daily Mixed tawlyyoafdbpqk49/15/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 spondylolysis, lumbosacral region Resolved Problems ProblemNoted DateDiagnosed DateResolved DateAcute blood loss caxdkz9511/07/2024 06/21/20253155Jhcllgmou32FeverLactic acidosis /S/P AVR/6404Jyumvdirhmu79/01/202512/ Wwnlgzax89Thoracic aortic aneurysm without ilxgsrj5602/25/2017 06/21/2025 Overview (01/12/2020): 4.7 cm on echo 01/2020; CT recommended 01/2021 Elevated sed rateHeadache elyndaxu10OSA (obstructive sleep apnea)2Chronic systolic CHF (congestive heart failure)Mitral irmcckhjuogmi00/14/DJD (degenerative joint disease) of kneeProstatic enlargement PrediabetesRoutine general medical examination at a health care zyzmfhsx75 Overview (11/09/2008): Colonoscopy 07/2008 Recheck 5 yrs Diverticulitis of colon (without mention of hemorrhage) Overview (02/25/2017): 1 episode January 2008 ANKLE etrexgpxddso64NXIETY HVLUREXW05/22/2017 Encounters DateTypeDepartmentCare VtakHtzucekhzni92/22/5564Ovnqbc28/18/2025 11:00 AM WOOD PILE DRIVER OPERATOR Office Visit [facility] [address] [id number] Romelia Rogers PA Follow Up (F/U Post Ablation. Review Holter)06/23/20254515Efuksu65/17/2025Results Follow-Up [facility] [address] [place] [address] 886 Adrien Hernandez MD Cubeazq6906/22/2025Results Follow-Up [facility] [address] [place] [address] Isma Johnson MD 06/21/2025 10:00 AM CSTOffice Visit [facility] [address] [place] [address] Adrien Hernandez MD Medicare ANNUAL (subsequent) Visit (80 year old )06/21/20252868Czxzpy73/13/2025 Fvzduv9206/16/20255573Svdmne29/10/2025 10:00 AM CSTOffice Visit [facility] [address] [place] [address] Thanh Alcaraz DPAngel Follow Up (Left 2nd toe, right foot lenin)06/15/20250586Trkhqo64/07/2025Travel 06/08/2025 4:45 PM CSTAncillary Procedure [facility] [address] [place] [address] 06/08/2025 4:00 PM CSTProcedure Only [facility] [address] [place] [address] Thanh Alcaraz DPM Procedure (Left 2nd toe-hardware removal )06/08/20250525Hdlrzh65/01/2025Telephone [facility] [address] [phone] Ti Goodman MD Tqobccsr43/28/5781Iblulm57/26/2025 11:00 AM CSTAncillary Procedure [facility] [address] [place] [address] 06/01/2025 10:15 AM CSTOffice Visit [facility] [address] [place] [address] Thanh Alcaraz DPAngel Consult (Left Second Toenail Concerns Red and Swollen )06/01/2025Travel 05/27/20250184Tcxxbu19/20/2025 8:16 AM WOOD PILE DRIVER OPERATOR - 05/26/2025 11:59 PM CSTHospital Encounter [facility] [address] [place] [address] Ti Goodman MD 05/26/2025Telephone [facility] [address] [place] [phone] Ti Goodman MD Results (teletypesetter monitor)05/26/2025Refill [facility] [address] [place] [address] Adrien Hernandez MD Refill Request (Omeprazole)05/23/2025 11:30 AM CSTNurse/Clinic Staff Only [address] [address] Device Check (Holter Monitor Return)05/23/20258985Oibwvn33/13/2025 9:30 AM WOOD PILE DRIVER OPERATOR Nurse/Clinic Staff Only [address] [address] Cardiovascular Diagnostic Testing (ECG )05/19/2025 9:00 AM CSTProcedure Only [address] [address] Device Check (Holter placement )05/19/2025Orders Only [address] [address] Adrien Hernandez MD 1 scan: (1-Ord) NFLD-EKG-05/19/2511Telephone [address] [address] Adrien Hernandez MD Results (EKG )05/19/2025Telephone [address] [address] Thanh Alcaraz DPM Appointment Vdveuil7605/19/2025Orders Only [address] [address] Adrien Hernandez MD Device Check05/18/20254322Kiwraf40/12/2025Telephone [facility] [address] [facility] [address] [place] [phone] Gabriel Antony, ISELA Form (Dentist / Antibiotics request)05/17/20251258Baofnr11/07/2025Telephone [facility] [address] [place] [address] Adrien Hernandez MD New Med Request (Standing order for antibiotic: Pre-Dental work. )05/13/2025 Telephone [facility] [address] [facility] [address] [place] [phone] Chayo Orona RN Hcgdbfttx96/07/2025Telephone [facility] [address] [place] [phone] Ti Goodman MD Questions; Need Meds; Medication Pwzkmekofd91/27/2025 11:30 AM CDTOrders Only [facility] [address] [place] [address] Lab, [place] [facility]05/02/20253036Ezsuul76/25/2025Refill [facility] [address] [phone] Jose Damon MD Refill Request (Repatha Sureclick)04/27/20256082Xbtaig30/18/2025Refill [facility] [address] [place] [address] Adrien Hernandez MD Refill Request (Amlodipine)04/22/2025 9:43 AM CDT - 04/22/2025 11:59 PM CDT Hospital Encounter [facility] [address] [place] [address] 04/22/2025Telephone [facility] [address] [facility] [address] [place] [phone] Jose Damon MD Refill Request (Repatha)04/22/20259441Estjja15/15/2025 9:45 AM CDT - 04/20/2025 11:59 PM CDTHospital Encounter [facility] [address] [facility] [place] [address] 04/20/20258323Oioggt66/13/2025 9:45 AM CDT - 04/18/2025 11:59 PM CDTHospital Encounter [facility] [address] [facility] [place] [address] 04/18/20250924Cgqtkh47/10/2025 9:44 AM CDT - 2025 11:59 PM CDTHospital Encounter [facility] [address] [facility] [place] [address] 04/15/20258021Hciefg52/08/2025 9:48 AM CDT - 04/13/2025 11:59 PM CDTHospital Encounter [facility] 200 [facility] [place] [address] 04/13/20257102Itgssv36/06/2025 9:46 AM CDT - 04/11/2025 11:59 PM CDTHospital Encounter [facility] [address] [facility] [place] [address] 04/11/20255802Xoqlhr91/01/2025 9:47 AM CDT - 04/06/2025 11:59 PM CDTHospital Encounter [facility] [address] [facility] [place] [address] 04/06/20259833Bkxvoq57/29/2025 9:49 AM CDT - 04/04/2025 11:59 PM CDTHospital Encounter [facility] [address] [facility] [place] [address] 04/04/20258944Jxnlux50/26/2025 9:44 AM CDT - 04/01/2025 11:59 PM CDTHospital Encounter [facility] [address] [facility] [place] [address] 04/01/2025Telephone [facility] [address] [place] [address] Ti Goodman MD Atrial Dqxtzrswwcda56/26/0733Hxloul89/24/2025 10:16 AM CDT - 03/30/2025 11:47 AM CDTEmergency [facility] [address] [place] [address] Tiarra Rahman MD Atrial fibrillation with RVR (HC) (Primary Dx) Discharge Disposition: Home Self Care03/30/2025 9:52 AM CDT - 03/30/2025 10:15 AM CDTHospital Encounter [facility] [address] [place] [address] 03/30/2025Telephone [facility] [address] [place] [address] Ti Goodman MD Ooyphyok81/24/2025Travelfrom Last 3 Months Immunizations ImmunizationAdministration DatesNext DueAMB INFLUENZA IIV3 (AGE 65+ YRS) PF (Flu Clinic Only)04/13/2018AMB Influenza, IIV3 (Age >=3 years)(Flu Clinic Only) 05/24/2008COVID-19 vaccine (Pfizer-BioNTech 30mcg/0.3mL) 12YO+ BIVALENT PF, MDV 2COVID-19 vaccine (Pfizer-BioNTech 30mcg/0.3mL) 12YO+ NILES-SUCROSE PF, MDV2COVID-19 vaccine (Pfizer-BioNTech 30mcg/0.3mL) PF, MDV10/04/2020, 09/13/2020HepA-HepB (Twinrix)09/13/2011,08/30/2011,08/23/2011Hepatitis A (Adult) 07/29/2017Hepatitis B (Adult)03/24/2025Influenza, High-dose Inactivated 04/13/2018,04/22/2016,04/24/2015Influenza, IIV3 (Age >=3 years)06/11/2012, 04/17/2010,03/28/2009,05/24/2008,06/01/2007,06/13/2006,05/07/2006,05/23/2003 Influenza, Inactivated AIIV4 (Age 65+ Years) Preserv Free04/14/2023,05/16/2022, 05/14/2021,04/06/2020Influenza, Inactivated IIV3 (Age 65+ Years) Preserv Free 03/24/2025,06/15/2024,03/26/2019,04/10/2017Pneumococcal Poly,23-Valent (Pneumovax)06/11/2012Pneumococcal conj 13-Valent (Prevnar 13)06/26/2015Td (Age >=7 Years)10/31/2006,07/07/2005Tdap01/16/2020,02/19/2013,10/31/2006Typhoid (injectable)07/29/2017Yellow Fever08/23/2011Zoster (Shingrix-RZV, recombinant) 08/03/2019,05/24/2019Zoster (Zostavax-ZVL, live)08/02/2008 Family History Medical HistoryRelationNameCommentsHeart DiseaseFatherdeceased from AAAHeart DiseaseMotherCHFOsteoporosisMotherAlcohol/DrugOtherstrong family hx chemical dependencyAnesthesia ProblemNo Family HistoryBlood DiseaseNo Family History RelationNameStatusCommentsFatherDeceasedMotherDeceasedOther Social History Tobacco UseTypesPacks/DayYears UsedDateSmoking Tobacco: NeverSmokeless Tobacco: Never Tobacco Cessation:Counseling Given: Yes Alcohol UseStandard Drinks/WeekCommentsNo0 (1 standard drink = 0.6 oz pure alcohol)PHQ-2AnswerDate RecordedPHQ-2 TOTAL CIOWK033Social Connections AnswerDate RecordedDo you often feel lonely or isolated from those around you?0 11/17/2024lcohol UseAnswerDate RecordedHow often do you have a drink containing alcohol?How many drinks containing alcohol do you have on a typical day when you are drinking?How often do you have five or more drinks on one occasion?Financial Resource StrainAnswerDate Recorded Difficulty of Paying Living Lusiaagd274/18/2024ifficulty of Paying Living ExpensesNot on file05/24/2024Food InsecurityAnswerDate RecordedDo you worry your food will run out before you are able to buy more?Transportation NeedsAnswerDate RecordedDoes lack of transportation keep you from medical appointments?Does lack of transportation keep you from work, meetings or getting things that you need?Housing StabilityAnswerDate Recorded What is your housing situation today?Interpersonal SafetyAnswerDate RecordedAre you being hit, kicked, pushed or yelled at (see row info)?No 03/30/2025Interpersonal Safety Abuse 12 - 18Not on file03/30/2025Interpersonal Safety Ambulatory VulnerabilityNot on file03/30/2025UtilitiesAnswerDate Recorded Do you have trouble paying for utilities (for example, heat, electricity, water, phone)?Sex and Gender InformationValueDate RecordedSex Assigned at BirthNot on fileLegal JrkIqwj1107/20/2012 5:43 AM CSTGender IdentityNot on file Sexual OrientationNot on fileOccupationIndustryJob Start DateJob 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 10:52 AM WOOD PILE DRIVER OPERATOR Plan of Treatment DateTypeDepartmentCare Team (Latest Contact Info)Capwjlgxafk51/20/2026 10:00 AM CSTOffice Visit [facility] [address] [place] [phone] Jose Damon MD [address] [place] [address] 06/22/2026 10:00 AM CSTOffice Visit [facility] [place] [address] [place], [place] [address] Ti Goodman MD [address] [place], [place] [phone] Health MaintenanceDue DateLast DoneCommentsRSV vaccine for adults or (1 - 1-dose 75+ series)2COVID-19 vaccine series ( season) , 12/07/2021, 05/07/2021, Additional history existsHepatitis B series for 19+ (3 of 3 - 19+ 3-dose series), 09/13/2011, 08/30/2011, Additional history existsMedicare Wellness for age 65+06/22/2026 06/21/2025, 06/15/2024, 04/14/2023, Additional history existsBMI (ht and wt on same day) for age 18+, 06/21/2025, 12/01/2024, Additional history existsDepression screening for age 12+, 06/21/2025, 06/15/2024, Additional history existsTetanus xmjtawc30/06/2020, 02/19/2013, 10/31/2006, Additional history existsHepatitis C screening for age 18-89Zsjseeyth53/27/2015Pneumococcal series for age 50+Fqbvkratb68/21/2015, 06/26/2015, 06/11/2012Zoster (shingles) series for age 50+Ebnwfeiay06/28/2020, 05/24/2019, 08/02/2008Influenza WbmduwyCtkohxkiz50/18/2025, 06/15/2024, 04/14/2023, Additional history exists Medical Devices ImplantedTypeAreaManufacturerDevice IdentifierShelf Expiration DateModel / Serial / LotAmnio Fix 2.0x12.0cm [facility] / [id number]:AMNIO FIX 2.0X12.0CMValve Aortic 25mm Inspirus Resilia Tissue - [id number] Implanted:Qty: 1 on 11/04/2024 [facility]: Aortic ValveEdMicropoint Technologies [id number]/ [id number] / [id number] / Description:Aortic valve-VALVE AORTIC 25MM INSPIRUS RESILIA TISSUE by [employer], Ref:[id number], SN:[id number], Exp:07-05-2029, implanted by Dr. Rhodes on 7-8-9832Rbdze Vasc 58qdm27ia Vascutek Gelweave Stra - [id number] Implanted:Qty: 1 on 11/04/2024 [facility]: [id number] / [id number] / Description:Aorta-GRAFT VASC 34HTO37TG VASCUTEK GELWEAVE STRAIGHT by [employer], Ref:[id number]. SN:[id number], Exp:07-06-2027, implanted by Dr. Rhodes on 11-04-2024 Procedures Procedure NamePriorityDate/TimeAssociated DiagnosisCommentsEKG 12 LEADRoutine 06/23/2025 10:52 AM WOOD PILE DRIVER OPERATOR Paroxysmal atrial fibrillation (HC) Atrial fibrillation with RVR (HC) Atrial fib/flutter, transient (HC) Atrial fibrillation, unspecified type (HC) HOLTER DWVTMJCOtdersx24/17/2025 Paroxysmal atrial fibrillation (HC) CBC WITH AUTO JKYHUUFVMSRGTlbosnq36/16/2025 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 Anemia, unspecified type HEMOGLOBIN R5SAlzqoab97/16/2025 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 Prediabetes TESTOSTERONE,MTEATVvboegy73/16/2025 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 Prostate cancer (HC) PSA AJUHYXhvuopm21/16/2025 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 Prostate cancer (HC) HIGWVPOIYiggjhy30/16/2025 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 Anemia, unspecified type CBC WITH AUTO XKARBZQKZPZMKvkwvlh99/16/2025 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 Anemia, unspecified type BASIC METABOLIC HYBMYTbvtdev73/16/2025 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 HTN (hypertension) LIPID PANEL W REFLEX MEASURED QUYVcsfnnl61/16/2025 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 Chronic atrial fibrillation (HC) Other specified abnormal findings of blood chemistry XR FOOT 3 VIEWS HVKQYLtyxkti61/03/2025 5:08 PM WOOD PILE DRIVER OPERATOR Right foot pain XR TOES 3 VIEWS OQPRUkwgmub59/26/2025 11:06 AM WOOD PILE DRIVER OPERATOR Exposed orthopaedic hardware IN READING EKG - NO CHARGE, COMP AIDLBacstjj38/13/2025 11:55 AM WOOD PILE DRIVER OPERATOR Chronic atrial fibrillation (HC) S/P AVR (aortic valve replacement) EKG 12 GAIRBopqqqb62/13/2025 11:55 AM WOOD PILE DRIVER OPERATOR Chronic atrial fibrillation (HC) S/P AVR (aortic valve replacement) HOLTER MONITOR 48 UMYWMJumeyak10/13/2025 Chronic atrial fibrillation (HC) S/P AVR (aortic valve replacement) CBC W PLT NO VBMZHdmzkkw27/27/2025 11:24 AM CDT Anemia, unspecified type CMYPTDUBBiazhqk10/27/2025 11:24 AM CDT Anemia, unspecified type SCAN-CARDIAC UTCHDGCCAYCXYK98/17/2025 9:49 AM CDTSCAN-CARDIAC REHABILITATION 04/20/2025 9:53 AM CDTSCAN-CARDIAC RRSTPDDFNWFVSN33/13/2025 9:50 AM CDTSCAN- CARDIAC XTMMRSCJGILDQZ97/10/2025 9:50 AM CDTSCAN-CARDIAC REHABILITATION 04/13/2025 9:52 AM CDTSCAN-CARDIAC SMPOMUDOULYLPA63/06/2025 9:51 AM CDTSCAN- CARDIAC POXASLQTLSQEKV80/01/2025 9:54 AM CDTSCAN-CARDIAC REHABILITATION 04/04/2025 9:56 AM CDTSCAN-CARDIAC YOFQKFTDLTNWXE57/26/2025 9:52 AM CDTEKG 12 SFTHTWNC56/24/2025 11:16 AM CDT CBC WITH AUTO LQSBBOCGNWNKLTCR06/24/2025 10:42 AM CDT PRO-EJLAVJZ7403/30/2025 10:42 AM CDT TROPONIN T (HS) ACUTE W/2HR XPNYNQFJDQ85/24/2025 10:42 AM CDT BASIC METABOLIC QDVCCCRGI75/24/2025 10:42 AM CDT CBC WITH AUTO IXASEQEZXZJRCPMA76/24/2025 10:42 AM CDT EKG 12 GRJYZNHP64/24/2025 10:23 AM CDT ANTI RAEYslwmdj66/27/2015 7:09 AM CDT Need for hepatitis C screening test from Last 3 Months or Most Recently Relevant to Health Maintenance Results * EKG 12 LEAD (06/23/2025 10:52 AM WOOD PILE DRIVER OPERATOR) Only the most recent of4 resultswithin the time period is included. ComponentValueRef RangeTest MethodAnalysis TimePerformed AtPathologist Signature InterpretationNormal sinus rhythm Normal ECG When compared with ECG of 30-Mar-2025 11:16, No significant change was found Ventricular Efjn29IQKWrexzn Jqrk01JUSE-P Upgqgzjr992bcAXR Crnvypgh18ujGX132yrGFz 418msP Sics94hzxcckaJ Avqv67givsvndO Lbvj86sldtuozDfjeqxdf (Source)Anatomical Location / LateralityCollection Method / VolumeCollection TimeReceived Time 06/23/2025 10:52 AM CST06/23/2025 3:53 PM WOOD PILE DRIVER OPERATOR Narrative Authorizing ProviderResult TypeResult StatusElizachayo Claudia Rogers PAEKG ORD Final Result * HOLTER MONITOR - frequent daily symptoms. Specify duration 24 or 48 hours. (06/22/2025) Narrative Authorizing ProviderResult TypeResult StatusTi Goodman MDCARDIAC SERVICES ORDFinal Result * (ABNORMAL) CBC WITH AUTO DIFFERENTIAL (06/21/2025 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) Only the most recent of2 resultswithin the time period is included. ComponentValueRef RangeTest MethodAnalysis TimePerformed AtPathologist Signature WHITE BLOOD CELL COUNT5.23.8 - 10.8 Thousand/uL06/22/2025 3:25 AM CSTQUEST DIAGNOSTICSRED BLOOD CELL COUNT5.174.20 - 5.80 Million/uL06/22/2025 3:25 AM WOOD PILE DRIVER OPERATOR QUEST ITPDOWAREMUABPREAILTN41.013.2 - 17.1 g/dL06/22/2025 3:25 AM CSTQUEST XTHQDSYQNDOHWJCBPOCDS15.639.4 - 51.1 %06/22/2025 3:25 AM CSTQUEST DIAGNOSTICSMCV 86.381.4 - 101.7 fL06/22/2025 3:25 AM CSTQUEST PHTIJFSDMORIJE55.127.0 - 33.0 pg 06/22/2025 3:25 AM CSTQUEST OBFLTGEQMYAWOXZ86.4(L)31.6 - 35.4 g/dL06/22/2025 3:25 AM CSTQUEST VXIUVIDVTIOZHB03.7(H)11.0 - 15.0 %06/22/2025 3:25 AM CSTQUEST DIAGNOSTICSPLATELET QCMVD538358 - 400 Thousand/uL06/22/2025 3:25 AM CSTQUEST GXNRAMHTXKXKVF75.77.5 - 12.5 fL06/22/2025 3:25 AM CSTQUEST DIAGNOSTICS WRQRQQQWXVP17.7%06/22/2025 3:25 AM CSTQUEST CXPGHQFVNIQBLEQVOXWVSV85.8% 06/22/2025 3:25 AM CSTQUEST ERBEMAMQRLUIRRYHZTKD12.1%06/22/2025 3:25 AM CSTQUEST DIAGNOSTICSEOSINOPHILS9.1%06/22/2025 3:25 AM CSTQUEST DIAGNOSTICSBASOPHILS1.3% 06/22/2025 3:25 AM CSTQUEST DIAGNOSTICSABSOLUTE [id number] - 7800 cells/uL06/22/2025 3:25 AM CSTQUEST DIAGNOSTICSABSOLUTE UKBIRAHZCLE775447 - 3900 cells/uL06/22/2025 3:25 AM CSTQUEST DIAGNOSTICSABSOLUTE VHOYZUPIM222775 - 950 cells/uL06/22/2025 3:25 AM CSTQUEST DIAGNOSTICSABSOLUTE BVNMZGVNJDD74667 - 500 cells/uL06/22/2025 3:25 AM CSTQUEST DIAGNOSTICSABSOLUTE YJVFGHBMA692 - 200 cells/uL06/22/2025 3:25 AM CSTQUEST DIAGNOSTICSSpecimen (Source)Anatomical Location / LateralityCollection Method / VolumeCollection TimeReceived TimeBlood BLOOD SPECIMEN / UnknownQuest Collect / Hwysvnb3306/21/2025 11:44 AM CST06/21/2025 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 Narrative Authorizing ProviderResult TypeResult StatusKyle Jesse Hernandez MDHEMATOLOGYFinal ResultPerforming OrganizationAddressCity/State/ZIP CodePhone Number [facility] [address] [address], * (ABNORMAL) HEMOGLOBIN A1C (06/21/2025 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)ComponentValueRef RangeTest MethodAnalysis TimePerformed AtPathologist SignatureHEMOGLOBIN A1C6.2(H)<5.7 % 06/22/2025 4:43 AM CSTQUEST DIAGNOSTICSComment: For someone without known diabetes, a hemoglobin A1c value between 5.7% and 6.4% is consistent with prediabetes and should be confirmed with a follow-up test. For someone with known diabetes, a value <7% indicates that their diabetes is well controlled. A1c targets should be individualized based on duration of diabetes, age, comorbid conditions, and other considerations. This assay result is consistent with an increased risk of diabetes. Currently, no consensus exists regarding use of hemoglobin A1c for diagnosis of diabetes for children. Specimen (Source)Anatomical Location / LateralityCollection Method / Volume Collection TimeReceived TimeBloodBLOOD SPECIMEN / UnknownQuest Collect / Unknown 06/21/2025 11:44 AM CST06/21/2025 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 Narrative Authorizing ProviderResult TypeResult StatusKyroxie Hernandez MDCHEMISTRYFinal ResultPerforming OrganizationAddressCity/State/ZIP CodePhone Number [facility] [address] [place] [address], * LIPID PANEL W REFLEX MEASURED LDL (06/21/2025 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)ComponentValueRef RangeTest MethodAnalysis TimePerformed AtPathologist SignatureCHOLESTEROL, JCUBE023<200 mg/dL06/22/2025 4:27 AM CSTQUEST FLOGODSNKZAGNWHVGWZCZGLK477<150 mg/dL06/22/2025 4:27 AM CSTQUEST DIAGNOSTICSHDL BAYTGNKMWUZ75> OR = 40 mg/dL 06/22/2025 4:27 AM CSTQUEST DIAGNOSTICSNON HDL WJCYNBXJMTQ66<130 mg/dL (calc) 06/22/2025 4:27 AM CSTQUEST DIAGNOSTICSComment: For patients with diabetes plus 1 major ASCVD risk factor, treating to a non-HDL-C goal of <100 mg/dL (LDL-C of <70 mg/dL) is considered a therapeutic option. CHOL/HDLC RATIO2.2<5.0 (calc)06/22/2025 4:27 AM CSTQUEST DIAGNOSTICS LDL-AWQUZYEBBGQ74vl/dL (calc)06/22/2025 4:27 AM CSTQUEST DIAGNOSTICSComment: Reference range: <100 Desirable range <100 mg/dL for primary prevention; <70 mg/dL for patients with CHD or diabetic patients with > or = 2 CHD risk factors. LDL-C is now calculated using the Kandice calculation, which is a validated novel method providing better accuracy than the Friedewald equation in the estimation of LDL-C. Moe DUMONT et al. HUNTER. 2013;310(19): 5480-6927 (http://education.QuestDiagnostics.com/faq/XAN855) Specimen (Source)Anatomical Location / LateralityCollection Method / Volume Collection TimeReceived TimeBloodBLOOD SPECIMEN / UnknownQuest Collect / Unknown 06/21/2025 11:44 AM CST06/21/2025 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 Narrative Authorizing ProviderResult TypeResult StatusAdrien Hernandez [facility] TULSAHEMISTRYFinal ResultPerforming OrganizationAddressty/State/ZIP CodePhone Number [employer] [address] [address], [place] [phone] * TESTOSTERONE,TOTAL (06/21/2025 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)ComponentValueRef RangeTest Method Analysis TimePerformed AtPathologist SignatureTESTOSTERONE, TOTAL, [id number] - 1100 ng/dL06/25/2025 5:56 AM CSTQUEST DIAGNOSTICSComment: For additional information, please refer to https://Netsocket.Interse/faq/TotalTestosteroneLCMSMS (This link is being provided for informational/educational purposes only.) (Note) This test was developed and its analytical performance characteristics have been determined by [facility]. It has not been cleared or approved by the FDA. This assay has been validated pursuant to the CLIA regulations and is used for clinical purposes. [facility] [address] [address],[address] [facility] [address] Beau Jha MD, PhD Specimen (Source)Anatomical Location / LateralityCollection Method / Volume Collection TimeReceived TimeBloodBLOOD SPECIMEN / UnknownQuest Collect / Unknown 06/21/2025 11:44 AM CST06/21/2025 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 Narrative Authorizing ProviderResult TypeResult StatusAdrien Hernandez [facility] TULSAHEMISTRYFinal ResultPerforming OrganizationAddressty/State/ZIP CodePhone Number [employer] [address] [address], [place] [phone] * PSA TOTAL (DIAG OR SCREEN) (06/21/2025 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)ComponentValueRef Range Test MethodAnalysis TimePerformed AtPathologist SignaturePSA, TOTAL0.04< OR = 4.00 ng/mL06/22/2025 5:20 AM CSTQUEST DIAGNOSTICSComment: The total PSA value from this assay system is standardized against the WHO standard. The test result will be approximately 20% lower when compared to the equimolar-standardized total PSA (Arnel Rhonda). Comparison of serial PSA results should be interpreted with this fact in mind. This test was performed using the Siemens chemiluminescent method. Values obtained from different assay methods cannot be used interchangeably. PSA levels, regardless of value, should not be interpreted as absolute evidence of the presence or absence of disease. Specimen (Source)Anatomical Location / LateralityCollection Method / Volume Collection TimeReceived TimeBloodBLOOD SPECIMEN / UnknownQuest Collect / Unknown 06/21/2025 11:44 AM CST06/21/2025 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 Narrative Authorizing ProviderResult TypeResult StatusFlroxie Shoppable [facility] TULSAHEMISTRYFinal ResultPerforming OrganizationAddressCity/State/ZIP CodePhone Number [employer] [address] [address], [place] [phone] * (ABNORMAL) FERRITIN (06/21/2025 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) Only the most recent of2 resultswithin the time period is included. ComponentValueRef RangeTest MethodAnalysis TimePerformed AtPathologist Signature OXIDDIMN09(L)24 - 380 ng/mL06/22/2025 5:20 AM CSTQUEST DIAGNOSTICSSpecimen (Source)Anatomical Location / LateralityCollection Method / VolumeCollection TimeReceived TimeBloodBLOOD SPECIMEN / UnknownQuest Collect / Fyrfqlr2906/21/2025 11:44 AM CST06/21/2025 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 Narrative Authorizing ProviderResult TypeResult StatusFlroxie PreclickRockefeller [facility] Institute Innovation CenterHEMISTRYFinal ResultPerforming OrganizationAddressty/State/ZIP CodePhone Number [employer] [address] [address], [place] [phone] * (ABNORMAL) BASIC METABOLIC PANEL (06/21/2025 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) Only the most recent of2 resultswithin the time period is included. ComponentValueRef RangeTest MethodAnalysis TimePerformed AtPathologist Signature [id number] - 146 mmol/L108/23/2024 4:27 AM CSTQUEST DIAGNOSTICSPOTASSIUM4.43.5 - 5.3 mmol/L108/23/2024 4:27 AM CSTQUEST DIAGNOSTICSCARBON SHUWRGE1952 - 32 mmol/L108/23/2024 4:27 AM CSTQUEST LGDJLDBMYOEFZUHWKE5413 - 99 mg/dL06/22/2025 4:27 AM CSTQUEST DIAGNOSTICSComment: ? Fasting reference interval CALCIUM9.78.6 - 10.3 mg/dL06/22/2025 4:27 AM CSTQUEST DIAGNOSTICSCREATININE1.03 0.70 - 1.28 mg/dL06/22/2025 4:27 AM CSTQUEST DIAGNOSTICSBUN/CREATININE RATIOSEE NOTE:6 - 22 (calc)06/22/2025 4:27 AM CSTQUEST DIAGNOSTICSComment: ?? Not Reported: BUN and Creatinine are within ?? reference range. ? EGFR74> OR = 60 mL/min/1.33b00806/22/2025 4:27 AM CSTQUEST DIAGNOSTICSUREA NITROGEN (BUN)187 - 25 mg/dL06/22/2025 4:27 AM CSTQUEST DIAGNOSTICSELECTROLYTE BALANCE5(L)7 - 17 mmol/L (calc)06/22/2025 4:27 AM CSTQUEST DIAGNOSTICSCHLORIDE [address] - 110 mmol/L108/23/2024 4:27 AM CSTQUEST DIAGNOSTICSSpecimen (Source) Anatomical Location / LateralityCollection Method / VolumeCollection Time Received TimeBloodBLOOD SPECIMEN / UnknownQuest Collect / Pnrfppt6006/21/2025 11:44 AM CST06/21/2025 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 Narrative Authorizing ProviderResult TypeResult StatusKyle Jesse Hernandez MDCHEMISTRYFinal ResultPerforming OrganizationAddressCity/State/ZIP CodePhone Number [facility] [address] [address], * XR FOOT 3 VIEWS RIGHT (06/08/2025 5:08 PM WOOD PILE DRIVER OPERATOR)Anatomical RegionLaterality ModalityFEET, FOOT RComputed RadiographySpecimen (Source)Anatomical Location / LateralityCollection Method / VolumeCollection TimeReceived Time12/10/2024 11:02 AM WOOD PILE DRIVER OPERATOR Impressions 06/09/2025 11:02 AM WOOD PILE DRIVER OPERATOR 1. Postsurgical changes as above with mature fusion of the 1st and 2nd TMT articulations and interphalangeal joints of the 1st and 2nd toes. 2. ??Mature fusion across the tibiotalar joint space. Partially indistinct appearance of subtalar articulations. 3. ??No acute fracture. Dictated by Elie Greenfield MD @ 06/09/2025 11:02:40 AM (Electronically Signed) Narrative 06/09/2025 11:02 AM WOOD PILE DRIVER OPERATOR For Patients: As a result of the Cures Act, medical imaging exams and procedure reports are released immediately into your electronic medical record. You may view this report before your referring provider. If you have questions, please contact your health care provider. HISTORY: Right foot pain. TECHNIQUE: Three views of the right foot. COMPARISON: 03/14/2009. FINDINGS: Status post remote fusion of the 1st and 2nd TMT articulations. Mature osseous fusion is present. The hardware associated with the prior fusions appear intact. Screw fusion of the interphalangeal joints of the 1st and 2nd toes with intact hardware and mature osseous fusion present. Moderate 1st MTPjoint space narrowing. Bipartite medial sesamoid bone. 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 Status post tibiotalar and subtalar fusion. That hardware appears intact. Tibiotalar joint space is indistinct compatible with osseous fusion. Partially indistinct appearance of subtalar articulations. No acute fracture. Procedure Note Elie Greenfield MD - 06/09/2025 For Patients: As a result of the Cures Act, medical imagingexams and procedure reports are released immediately into your electronicmedical record. You may view this report before your referring provider.If you have questions, please contact your health care provider. HISTORY: Right foot pain. TECHNIQUE: Three views of the right foot. COMPARISON: 03/14/2009. FINDINGS: Status post remote fusion of the 1st and 2nd TMT articulations. Matureosseous fusion is present. The hardware associated with the prior fusionsappear intact. Screw fusion of the interphalangeal joints of the 1st and2nd toes with intact hardware and mature osseous fusion present. Oesitbns5tx MTP joint space narrowing. 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 Degenerative arthrosiswithin the midfoot. Status post tibiotalar and subtalar fusion. Thathardware appears intact. Tibiotalar joint space is indistinct compatiblewith osseous fusion. Partially indistinct appearance of subtalararticulations. No acute fracture. IMPRESSION: 1. Postsurgical changes as above with mature fusion of the 1st and 2ndTMT articulations and interphalangeal joints of the 1st and 2nd toes. 2. Mature fusion across the tibiotalar joint space. Partially indistinct appearance of subtalar articulations. 3. No acute fracture. Dictated by Elie Greenfield MD @ 06/09/2025 11:02:40 AM (Electronically Signed) Authorizing ProviderResult TypeResult StatusTrent R Steenblreuben DPMGENERAL IMAGINGFinal Result * XR TOES 3 VIEWS LEFT (06/01/2025 11:06 AM WOOD PILE DRIVER OPERATOR)Anatomical RegionLaterality ModalityTOESComputed RadiographySpecimen (Source)Anatomical Location / LateralityCollection Method / VolumeCollection TimeReceived Time06/02/2025 8:00 AM WOOD PILE DRIVER OPERATOR Impressions 06/02/2025 8:00 AM WOOD PILE DRIVER OPERATOR Second toe fusion with screw, as above. Screw head in the soft tissues just below the skin. Dictated by Jose Clinton MD @ 06/02/2025 8:00:16 AM (Electronically Signed) Narrative 06/02/2025 8:00 AM WOOD PILE DRIVER OPERATOR For Patients: As a result of the Cures Act, medical imaging exams and procedure reports are released immediately into your electronic medical record. You may view this report before your referring provider. If you have questions, please contact your health care provider. INDICATION: Exposed orthopedic hardware TECHNIQUE: Three views of the left 2nd toe COMPARISON: None FINDINGS: Post fusion of the 2nd toe phalanges with screw in place. Screw head extends beyond the distal phalanx into the soft tissues and just below the skin. Bony elements appear to be solidly fused. Procedure Note Jose Clinton MD - 06/02/2025 For Patients: As a result of the 21st Century Cures Act, medical imagingexams and procedure reports are released immediately into your electronicmedical record. You may view this report before your referring provider.If you have questions, please contact your health care provider. INDICATION: Exposed orthopedic hardware TECHNIQUE: Three views of the left 2nd toe COMPARISON: None FINDINGS: Post fusion of the 2nd toe phalanges with screw in place. Screw headextends beyond the distal phalanx into the soft tissues and just below theskin. Bony elements appear to be solidly fused. IMPRESSION: Second toe fusion with screw, as above. Screw head in the soft tissuesjust below the skin. Dictated by Jose Clinton MD @ 06/02/2025 8:00:16 AM (Electronically Signed) Authorizing ProviderResult TypeResult StatusTrent Ashley Alcaraz DPMGENERAL IMAGINGFinal Result * IN READING EKG - NO CHARGE, COMP ONLY (05/19/2025 11:55 AM WOOD PILE DRIVER OPERATOR) Narrative Authorizing ProviderResult TypeResult StatusAdrien Hernandez MDPB - PROVIDER READINGSFinal Result * HOLTER MONITOR 48 HOURS (05/19/2025) Narrative Authorizing ProviderResult TypeResult StatusTi Goodman MDCARDIAC SERVICES ORDFinal Result * (ABNORMAL) CBC W PLT NO DIFF (05/02/2025 11:24 AM CDT)ComponentValueRef Range Test MethodAnalysis TimePerformed AtPathologist SignatureWHITE BLOOD CELL COUNT8.43.8 - 10.8 Thousand/uL05/03/2025 3:37 AM CDTQUEST DIAGNOSTICSRED BLOOD CELL COUNT4.914.20 - 5.80 Million/uL05/03/2025 3:37 AM CDTQUEST DIAGNOSTICS TZXNMVXNLB83.8(L)13.2 - 17.1 g/dL05/03/2025 3:37 AM CDTQUEST DIAGNOSTICS KOUSVEMKYW78.738.5 - 50.0 %05/03/2025 3:37 AM CDTQUEST OBXUJIXUZBZMDJ26.080.0 - 100.0 fL05/03/2025 3:37 AM CDTQUEST FBBHWYGQGWTOMA03.1(L)27.0 - 33.0 pg 05/03/2025 3:37 AM CDTQUEST XBQUXGIEAVCWZIE65.0(L)32.0 - 36.0 g/dL05/03/2025 3:37 AM CDTQUEST DIAGNOSTICSComment: For adults, a slight decrease in the calculated MCHC value (in the range of 30 to 32 g/dL) is most likely not clinically significant; however, it should be interpreted with caution in correlation with other red cell parameters and the patient's clinical condition. RDW16.5(H)11.0 - 15.0 %05/03/2025 3:37 AM CDTQUEST DIAGNOSTICSPLATELET QQFOK809 140 - 400 Thousand/uL05/03/2025 3:37 AM CDTQUEST BFKJCSWMNJSCJQ87.97.5 - 12.5 fL 05/03/2025 3:37 AM CDTQUEST DIAGNOSTICSSpecimen (Source)Anatomical Location / LateralityCollection Method / VolumeCollection TimeReceived TimeBloodBLOOD SPECIMEN / UnknownQuest Collect / Xfzhwhr7805/02/2025 11:24 AM CDT1 11:24 AM CDT Narrative Authorizing ProviderResult TypeResult StatusAdrien Hernandez MDHEMATOLOGYFinal ResultPerforming OrganizationAddressCity/State/ZIP CodePhone Number [facility] [address] [address], * SCAN-CARDIAC REHABILITATION (04/22/2025 9:49 AM CDT) Only the most recent of9 resultswithin the time period is included. Narrative Authorizing ProviderResult TypeResult StatusScannerOTHERFinal Result * TROPONIN T (HS) ACUTE W/2HR REFLEX (03/30/2025 10:42 AM CDT)ComponentValueRef RangeTest MethodAnalysis TimePerformed AtPathologist SignatureTROPONIN T HS13 6-15 ng/L ng/L03/30/2025 11:19 AM CDTFKAISER [facility]OUND[facility] Specimen (Source)Anatomical Location / LateralityCollection Method / Volume Collection TimeReceived TimeBloodBLOOD SPECIMEN / UnknownVenipuncture / Sfhnyvn6903/30/2025 10:42 AM CDT03/30/2025 10:45 AM CDT Narrative [facility] - 03/30/2025 11:19 AM CDT hs-cTnT (Elecsys Troponin T Gen 5) concentration (s) above the sex-specific 99th percentile (16 ng/L or greater for males or 11 ng/L or greater for females) are indicative of myocardial injury. If initial hs-cTnT <=100 ng/L at presentation, a 0h/2h ABSOLUTE (ng/L) delta change (rising or falling) of >=10 ng/L suggests a significant change, whereas a 0h/2h delta change <=3 ng/L suggests no significant change. If initial hs-cTnT >100 ng/L at presentation, a 0h/2h/ RELATIVE (percent, %) delta change of 20%is suggested to distinguish patients with acute vs. chronic myocardial injury. There are multiple etiologies that can cause hs-cTnT increases above the 99th percentile (myocardial injury) other than acute myocardial infarction. Clinical context and careful clinical evaluation are critical for diagnosis and risk- stratification. The diagnosis of acute myocardial infarction requires a rising and/or falling pattern in hs-cTnT concentrations with at least one value above the sex-specific 99th percentile PLUS at least one of the following clinical criteria: ischemic symptoms, new or presumed new significant ST-T wave changes or new LBBB, development of pathological Q waves, imaging evidence of new loss of viable myocardium or new regional wall motion abnormality, or identification of intracoronary atherothrombosis or an acute angiographic culprit on coronary angiography. In appropriate low-risk patients with a non-ischemic electrocardiogram without active chest pain with a symptom onset >3-hours without recurrence, a single initial hs-cTnT<6 ng/L identifies patient with a very low risk in emergency department patient population. Authorizing ProviderResult TypeResult StatusKatsaul Rahman MDCHEMISTRY Final ResultPerforming OrganizationAddressCity/State/ZIP CodePhone Number [facility] [address] [place] [address] * (ABNORMAL) PRO-BNP (03/30/2025 10:42 AM CDT)ComponentValueRef RangeTest Method Analysis TimePerformed AtPathologist SignaturePRO-JHI196(H)<450 pg/mL 03/30/2025 11:20 AM CDTFKAISER FOUNDATION HOSPITAL LABORATORYSpecimen (Source) Anatomical Location / LateralityCollection Method / VolumeCollection Time Received TimeBloodBLOOD SPECIMEN / UnknownVenipuncture / Shdaoxm8903/30/2025 10:42 AM CDT03/30/2025 10:45 AM CDT Narrative [facility] - 03/30/2025 11:20 AM CDT The following cut-points have been suggested for the use of proBNP for the diagnostic evaluation of heart failure (HF) in patient with acute dyspnea. Patients with eGFR >= 60 Diagnosis (rule in CHF) ? <50 Years Old 450 pg/mL 50 - 75 Years Old ?900 pg/mL >75 Years Old 1800 pg/mL Exclusion (rule out CHF) Age Independent ?300 pg/mL A cutoff of 1200 pg/mL for patients with an eGFR <60 yields a diagnostic sensitivity of 89% and specificity of 72% for acute congestive heart failure. ? Authorizing ProviderResult TypeResult StatusTiarra Rahman MDSEND OUTS Final ResultPerforming OrganizationAddressCity/State/ZIP CodePhone Number [facility] [address] [place] [phone] * ANTI HCV [[id number]] (05/02/2015 7:09 AM CDT)ComponentValueRef RangeTest Method Analysis TimePerformed AtPathologist SignatureHEPATITIS C ANTIBODYNon-Reactive Non-Reactive 05/02/2015 2:42 PM CDMAGNOLIA REGIONAL HEALTH CENTERCENTRAL LABORATORYSpecimen (Source)Anatomical Location / LateralityCollection Method / VolumeCollection TimeReceived TimeBlood specimen (specimen)BLOOD SPECIMEN / UnknownVenipuncture / Zshfdew4105/02/2015 7:09 AM CDT1 7:09 AM CDT Narrative [facility] - 05/02/2015 2:42 PM CDT Antibodies to HCV not detected; does not exclude the possibility of exposure to HCV. Authorizing ProviderResult TypeResult StatusMaikol Cortes MDSEND OUTSFinal ResultPerforming OrganizationAddressCity/State/ZIP CodePhone Number [facility] [address] [place] [address], [place] from Last 3 Months or Most Recently Relevant to Health Maintenance Insurance Advance Directives TypeDate RecordedPatient RepresentativeExplanationHealthcare Jocllsdep64/16/2024 06/21/2024Healthcare Ydybaggcw24/2/2016 2:18 [facility] 01/26/2016 Healthcare Lzeophqnx15/17/2014 11:40 AM [facility], 07/18/2005 * Full Code (Latest Code Status on File) Date ActivatedDate InactivatedComments12/28/2024 10:40 AM12/29/2024 1:06 PM QuestionAnswerCommentsCode Status Discussion:* Reviewed Preferences * Full Code Date ActivatedDate InactivatedComments11/16/2024 3:39 PM11/17/2024 6:43 PMQuestion AnswerCommentsCode Status Discussion:* Reviewed Preferences * Full Code Date ActivatedDate InactivatedComments11/04/2024 6:15 AM11/11/2024 4:18 PMQuestion AnswerCommentsCode Status Discussion:* Reviewed Preferences * Full Code Date ActivatedDate InactivatedComments09/11/2022 11:35 AM09/12/2022 4:00 PMQuestion AnswerCommentsCode Status Discussion:* Reviewed Preferences * Full Code Date ActivatedDate InactivatedComments12/27/2020 12:05 PM12/28/2020 1:08 PM QuestionAnswerCommentsCode Status Discussion:* Discussed Care Teams Team MemberRelationshipSpecialtyStart DateEnd Date Adrien Hernandez MD [address] [place] [address] PCP - GeneralFamily Practice10/28/16
[2025-06-28 10:42] VITALS: BP 144/82; PULSE 84; RESP 18; TEMP 36.7; O2SAT 97; BMI 27.1
--- NOTE | 2025-06-28 11:17 | ED.GENADULT ---
HPI - General Adult General Chief complaint: Arrhythmia/Palpitations Stated complaint: Flu, Afib Time Seen by Provider: 06/28/25 10:55 History of Present Illness HPI narrative: This 80-year-old male awoke this morning feeling generalized malaise. He did have report of some upper respiratory symptoms and diarrhea. At home a notice that his heart rate was 140-150 beats per minute. He does have a history of atrial fibrillation and is currently taking diltiazem. He did take his diltiazem this morning. He had been on sotalol until 3 days ago and this medicine was discontinued according to directions from his braid folder. He has had an ablation and currently is taking diltiazem and a baby aspirin. He does not report any chest pain. He did present to urgent care and a viral swab was obtained and was negative for those viruses tested. He was sent here because they measured a heart rate there at 112. On arrival here he has normal vital signs including a pulse at 84 beats per minute. He states that he is feeling better. Related Data Home Medications ?Medication ?Instructions ?Recorded ?Confirmed amlodipine 5 mg tablet 5 mg PO DAILY 07/10/22 06/28/25 evolocumab 140 mg/mL subcutaneous 140 mg subcut Q14D 07/10/22 06/28/25 pen injector (Jarod Rodriguez) peg 400-propylene glycol 0.4 %-0.3 1 drp ophthalmic (eye) QID PRN 10/07/24 06/28/25 % eye gel drops eszopiclone 1 mg tablet 2 mg PO HS 02/01/25 06/28/25 acetaminophen 500 mg capsule 1,000 mg PO Q6H PRN 02/16/25 06/28/25 celecoxib 100 mg capsule 100 mg PO DAILY 02/16/25 06/28/25 testosterone enanthate 75 mg/0.5 75 mg subcut Q7D 02/16/25 06/28/25 mL subcutaneous auto-injector (Xyosted) aspirin 81 mg tablet 81 mg PO QDAY 03/29/25 06/28/25 ferrous sulfate 325 mg (65 mg 325 mg PO QDAY 03/29/25 06/28/25 iron) tablet (iron) diltiazem HCl 120 mg 120 mg PO DAILY 06/28/25 06/28/25 capsule,extended release 24 hr lemborexant 10 mg tablet (Dayvigo) 5 - 10 mg PO QPM 06/28/25 06/28/25 Allergies Allergy/AdvReac Type Severity Reaction Status Date / Time latex Allergy Unknown Verified 06/28/25 10:50 atorvastatin Allergy Verified 06/28/25 10:50 lisinopril Allergy Verified 06/28/25 10:50 naproxen Allergy Nausea Verified 06/28/25 10:50 rosuvastatin Allergy Verified 06/28/25 10:50 Review of Systems Status of ROS: Reports: 10 or more systems reviewed and unremarkable except as noted in History and below Narrative: Constitutional: No fevers, no weight gain or loss. Eyes: No discharge. No vision changes. HENT: No sore throat, no ear pain. Cardiovascular: No chest pain, no palpitations. Respiratory: No shortness of breath, no wheezes. Gastrointestinal: No abdominal pain, no vomiting, no diarrhea. Genitourinary: No dysuria, no hematuria. Musculoskeletal: Normal range of motion. Skin: No rashes, no pruritis. Neurological: No dizziness, weakness, sensory change, speech change. Endo/Heme/Allergies: No bruising or bleeding. No polydipsia. Pysch: no suicidality, no anxiety, no insomnia. All other systems reviewed and are negative. 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) On continuous oral anticoagulation ?Z79.01 - patient access manager (current) use of anticoagulants (ICD-10) History of cardioversion ?Z92.89 - Personal history of other medical treatment (ICD-10) Postoperative cardiac arrest following cardiac surgery ?I97.120 - Postprocedural cardiac arrest following cardiac surgery (ICD-10) Osteoarthritis of right shoulder ?M19.011 - Primary osteoarthritis, right shoulder (ICD-10) Osteoarthritis of left knee ?M17.12 - Unilateral primary osteoarthritis, left knee (ICD-10) Osteoarthritis of right knee ?M17.11 - Unilateral primary osteoarthritis, right knee (ICD-10) COVID-19 ?U07.1 - COVID-19 (ICD-10) Atrophy of quadriceps femoris muscle ?M62.559 - Muscle wasting and atrophy, not elsewhere classified, unspecified thigh (ICD-10) 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 ?M51.16 - Intervertebral disc disorders with radiculopathy, lumbar region (ICD-10) Osteoarthritis of left shoulder ?M19.012 - Primary osteoarthritis, left shoulder (ICD-10) Left rotator cuff tear arthropathy ?M75.102 - Unspecified rotator cuff tear or rupture of left shoulder, not specified as traumatic (ICD-10) ?M12.812 - Other specific arthropathies, not elsewhere classified, left shoulder (ICD-10) Health care directive on file ?Z78.9 - Other specified health status (ICD-10) Sarcoidosis ?D86.9 - Sarcoidosis, unspecified (ICD-10) Atrial fibrillation ?I48.91 - Unspecified atrial fibrillation (ICD-10) Chronic systolic CHF (congestive heart failure) ?I50.22 - Chronic systolic (congestive) heart failure (ICD-10) Prostate cancer ?C61 - Malignant neoplasm of prostate (ICD-10) Hypertension ?I10 - Essential (primary) hypertension (ICD-10) Laceration of left side of forehead with complication ?S01.81XA - Laceration without foreign body of other part of head, initial encounter (ICD-10) Facial injury ?S09.93XA - Unspecified injury of face, initial encounter (ICD-10) Chronic headache ?R51.9 - Headache, unspecified (ICD-10) ?G89.29 - Other chronic pain (ICD-10) Atrial flutter with rapid ventricular response ?I48.92 - Unspecified atrial flutter (ICD-10) Atrial fibrillation with rapid ventricular response ?I48.91 - Unspecified atrial fibrillation (ICD-10) Methicillin resistant Staphylococcus aureus culture positive (03/31/19) ?Z22.322 - Carrier or suspected carrier of Methicillin resistant Staphylococcus aureus (ICD-10) Diverticulitis ?K57.92 - Diverticulitis of intestine, part unspecified, without perforation or abscess without bleeding (ICD-10) Surgical History 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) ?Z96.642 - Presence of left artificial hip joint (ICD-10) History of cardiac ablation for atrial fibrillation ?Z98.890 - Other specified postprocedural states (ICD-10) ?I48.91 - Unspecified atrial fibrillation (ICD-10) History of open occlusion of left atrial appendage ?Z98.890 - Other specified postprocedural states (ICD-10) S/P AVR (aortic valve replacement) ?Z95.2 - Presence of prosthetic heart valve (ICD-10) S/P thoracic aortic aneurysm repair ?Z98.890 - Other specified postprocedural states (ICD-10) ?Z86.79 - Personal history of other diseases of the circulatory system (ICD-10) Status post tendon repair (07/21/23) ?Z98.890 - Other specified postprocedural states (ICD-10) H/O prostatectomy (10/2014) ?Z90.79 - Acquired absence of other genital organ(s) (ICD-10) History of elbow surgery (01/19/04) ?Z98.890 - Other specified postprocedural states (ICD-10) Status post arthroscopy of left shoulder (03/02/03) ?Z98.890 - Other specified postprocedural states (ICD-10) S/P ankle joint replacement ?Z96.669 - Presence of unspecified artificial ankle joint (ICD-10) H/O elbow surgery (~09/2017) ?Z98.890 - Other specified postprocedural states (ICD-10) Social History Narrative: -Kristen What is your current living situation?: I presently have a place to live Problems where you live: no known problems In the past 12 months, utilities in danger of being shut off: no In past 12 months, lack of transportation kept you from medical appts, meetings, work, or getting things needed for daily living: no In the past 12 mos, have been you worried that your food would run out before you had money to buy more?: never true In the past 12 mos, the food you bought just didn't last and you didn't have money to buy more?: never true Highest level of school completed/degree received: Bachelor's degree Smoking Status: Never smoker Do you use any of these nicotine containing products: None Second hand tobacco smoke exposure: No How often do you have a drink containing alcohol: never How often do you have six or more drinks on one occasion: Never AUDIT-C Alcohol total score: 0 Non-prescribed substance use: denies use Caffeine: Yes How often does anyone, including family, friends and others, physically hurt you: never How often does anyone, including family, friends and others, insult or talk down to you: never How often does anyone, including family, friends and others, threaten you with harm: never How often does anyone, including family, friends and others, scream or curse at you: never service: No Exam Narrative: Exam Narrative: Constitutional: Well-developed, well-nourished, no acute distress. HEENT: Normocephalic, atraumatic. Neck: Normal range of motion. Nontender. Supple. Heart: Regular. No murmurs. Normal rate. Intact distal pulses. Lungs: Clear to auscultation. No chest discomfort. No wheezes, rhonchi, or rales. Abdomen: Normal bowel sounds. Nontender. No rebound tenderness. Genitalia: Deferred. Back: No midline tenderness. Normal range of motion. Extremities: Normal range of motion. No injury. Skin: Intact. No rash. Warm. No erythema or pallor. Neurologic: No altered sensation. No weakness. Alert and oriented. Psychiatric: No suicidality. No anxiety or depression. No insomnia. Nursing notes and vitals signs are reviewed. Const: Vital Signs, click to edit/add: Vital Signs - 24 hr 06/28/25 10:42 Temperature 98.0 F Pulse Rate [Pulse Oximeter] 84 Respiratory Rate 18 Blood Pressure [Ri ght Upper Arm] 144/82 H Pulse Oximetry 97 Oxygen Delivery Me thod Room Air Course Vital Signs Vital signs: Initial Vital Signs Temperature 98.0 F 06/28/25 10:42 Temperature Source Temporal Artery Scan 06/28/25 10:42 Pulse Rate 84 06/28/25 10:42 Respiratory Rate 18 06/28/25 10:42 Blood Pressure 144/82 H 06/28/25 10:42 Blood Pressure Mean 102 06/28/25 10:42 Blood Pressure Position Sitting 06/28/25 10:42 Pulse Oximetry 97 06/28/25 10:42 Oxygen Delivery Method Room Air 06/28/25 10:42 Vital Signs Temperature 98.0 F 06/28/25 10:42 Pulse Rate 84 06/28/25 10:42 Respiratory Rate 18 06/28/25 10:42 Blood Pressure 144/82 H 06/28/25 10:42 Pulse Oximetry 97 06/28/25 10:42 Oxygen Delivery Method Room Air 06/28/25 10:42 Temperature 98.0 F 06/28/25 10:42 Pulse Rate 84 06/28/25 10:42 Respiratory Rate 18 06/28/25 10:42 Blood Pressure 144/82 H 06/28/25 10:42 Pulse Oximetry 97 06/28/25 10:42 Oxygen Delivery Method Room Air 06/28/25 10:42 Medical Decision Making MDM Narrative Medical decision making narrative: This 80-year-old male was sent here from urgent care because of EKG there that showed atrial fibrillation with rapid ventricular response. He arrives here with normal sinus rhythm. Repeat EKG shows a rate of 78 beats per minute with normal sinus rhythm and no ST or T-wave abnormalities. The patient did switch off of sotalol and into diltiazem 3 days ago. Additionally he has had upper respiratory symptoms likely due to a virus for the past week. He is feeling better currently and has normal vital signs. I advised him to follow-up with his cardiology clinic as it does appear that he had a paroxysm of atrial fibrillation. He is taking a baby aspirin daily. He did have a Watchman procedure. I advised him to continue with these current plans. He did receive an oral dose of dexamethasone for some symptomatic relief of his cold symptoms. ECG Data Attestation: I personally reviewed and interpreted this ECG as follows: Interpretation: Normal sinus rhythm. Rate is 78 beats per minute. There are no ST or T-wave abnormalities. Discharge Plan Discharge Clinical Impression: Acute upper respiratory infection, Paroxysmal atrial fibrillation Patient Disposition: Home, Self-Care Condition: Improved Additional Instructions: Continue current plans. Use [id number] medicines also as the directed. Follow-up with cardiology clinic regarding today's events. Return if worsening. Prescriptions: No Action peg 400-propylene glycol 0.4-0.3 % drops,gel 1 drp ophthalmic (eye) QID PRN Repatha SureClick 140 mg/mL pen injector 140 mg subcut Q14D amlodipine 5 mg tablet 5 mg PO DAILY eszopiclone 1 mg tablet 2 mg PO HS ferrous sulfate [iron] 325 mg (65 mg iron) tablet 325 mg PO QDAY aspirin 81 mg tablet 81 mg PO QDAY diltiazem HCl 120 mg capsule,extended release 24hr 120 mg PO DAILY Dayvigo 10 mg tablet 5 - 10 mg PO QPM Xyosted 75 mg/0.5 mL auto-injector 75 mg subcut Q7D celecoxib 100 mg capsule 100 mg PO DAILY acetaminophen 500 mg capsule 1,000 mg PO Q6H PRN Follow Up/Referrals: Adrien Hernandez MD [Primary Care Provider, Family Practice] Stand Alone [facility]: [facility] Info Instructions
== END 2025-06-28 11:47 | disposition home or self-care (01) ==
PROVIDERS: Emergency Provider Emergency Medicine Emergency Medical Services; PCP Surgery
DX: J06.9 Acute upper respiratory infection, unspecified (principal); I48.0 Paroxysmal atrial fibrillation; Z79.82 Long term (current) use of aspirin; Z95.818 Presence of other cardiac implants and grafts
CPT/HCPCS: 93005; 99283; 99284; J1100